=== PATIENT | male | born 1945 | race Caucasian/White ===

== ENCOUNTER 2017-04-29 16:19 | Emergency (ER) | payer SELFPAY ==
[2017-04-29 16:35] VITALS: BP 118/69
== END 2017-04-29 19:30 | disposition left against medical advice (07) ==
LOC: ER 16:19
DX: F10.120 Alcohol abuse with intoxication, uncomplicated (principal); Z53.21 Procedure and treatment not carried out due to patient leaving prior to being seen by health care provider

== ENCOUNTER 2020-03-12 09:08 | Inpatient (IN) | payer MEDICARE, MEDICAID ==
[~2020-03-12] VITALS: Ht 180.3 cm; Wt 110.5 kg
[2020-03-12 10:08] LABS: Basophils # (auto) 0 10 ^3/uL (0-0.2); Basophils % (auto) 0.9 % (0.0-2.0); Eosinophils # (auto) 0 10 ^3/uL (0-0.8); Eosinophils % (auto) 0.2 % (0.0-7.0); Hematocrit 48.1 % (41.0-53.0); Hemoglobin 15.8 g/dL (13.5-17.5); Lymphocytes # (auto) 1.7 10 ^3/uL (0.4-5.4); Mean Corpuscular Hemoglobin 29.2 pg (28.0-32.0); Mean Corpuscular Hgb Conc. 32.9 g/dL (32.0-36.0); Mean Corpuscular Volume 88.8 fL (80.0-100.0); Monocytes # (auto) 0.5 10 ^3/uL (0-1.3); Monocytes % (auto) 10.4 % (0.0-12.0); Neutrophils # (auto) 2.3 10 ^3/uL (1.6-8.6); Neutrophils % (auto) 50.5 % (37.0-80.0); Nucleated Red Blood Cells % 0.5 %; Platelet Count (auto) 142 10^3/uL (140-450); Red Blood Cells 5.42 10^6/uL (4.5-5.90); Red Cell Distribution Width 16.5 % (11.8-14.3); White Blood Cell 4.6 10^3/uL (4.4-10.8)
[2020-03-12 10:20] LABS: Albumin 3.5 g/dL (3.4-5.0); Calcium 8.9 mg/dL (8.5-10.1)
[2020-03-12 10:25] LABS: BUN/Creatinine Ratio 10.7; Bilirubin, Total 1.4 mg/dL (0.2-1.0); Total Protein 9.1 g/dL (6.4-8.2)
[2020-03-12 10:27] LABS: Potassium 2.5 mmol/L (3.5-5.1)
[2020-03-12] MEDS ORDERED: ENOXAPARIN SOD 100 MG/1 ML SYRINGE SC ONE (10:45)
[2020-03-12] MEDS: POTASSIUM CHL 20MEQ/100ML 100 ML IV SCH ×3 (10:45→14:45)
[2020-03-12] MEDS ORDERED: ASPirin 81 mg TAB PO ONE (10:45)
[2020-03-12] MEDS: SODIUM CHLORIDE 0.9% 1,000 ML IV SCH (12:05)
[2020-03-12] MEDS ORDERED: MORPHINE SULFATE 4 MG/ML SYR/VIAL IV PRN (12:15)
[2020-03-12] MEDS: DOXYCYCLINE 100MG/250ML 250 ML IV SCH (12:15)
[2020-03-12] MEDS ORDERED: FUROSEMIDE 20 MG/2 ML VIAL IV ONE (12:15)
[2020-03-12] MEDS ORDERED: ALUM & MAG HYDROX-SIMETH LIQ(MAALOX) 30 ML PO ONE (12:15)
[2020-03-12] MEDS ORDERED: MORPHINE SULF INJ 2 MG/ML SYRINGE 1ML IV PRN (12:15)
[2020-03-12] MEDS ORDERED: LORazepam 0.5 MG TAB PO PRN (12:15)
[2020-03-12] MEDS ORDERED: DOXYCYCLINE 100MG/250ML 250 ML IV ONE (12:15)
[2020-03-12] MEDS ORDERED: NITROGLYCERIN 0.4 MG SL TAB SL PRN ×2 (12:15)
[2020-03-12] MEDS ORDERED: ATORVASTATIN 20 MG TAB PO ONE (12:15)
[2020-03-12 12:21] LABS: Urine Bacteria None Seen /hpf (None Seen)
[2020-03-12 12:34] LABS: Cholesterol 196 mg/dL (< 200); Triglycerides 165 mg/dL (< 150)
[2020-03-12 12:37] LABS: HDL Cholesterol 83 mg/dL (40-59); LDL Cholesterol 110 mg/dL (< 100)
[2020-03-12 12:45] LABS: Urine Mucus FEW (None Seen); Urine WBC 2 /hpf (0 - 3)
[2020-03-12] MEDS ORDERED: POTASSIUM EFFERVESENT TAB 25 MEQ PO ONE (12:45)
[2020-03-12] MEDS ORDERED: IOHEXOL 350 MG/ML 100ML IJ ONE (12:57)
[2020-03-12] MEDS ORDERED: LORazepam 2MG/ML-1ML VIAL IV PRN (13:00)
--- NOTE | 2020-03-12 13:30 | NUR ---
DIANA SANFORD DELIVERED PATIENTS IV TUBING AND IV POTASSIUM BEDSIDE.
[2020-03-12 13:48] VITALS: BP 141/97
--- NOTE | 2020-03-12 14:00 | NUR ---
RECEIVED PATIENT FROM SKATING RINK MANAGER VIA [facility]. PATIENT ALERT AND ORIENTED X 4 AND [place]ASH[place]. PATIENT AMBULATED TO THE RESTROOM AND URINATED 500 CC OF CLEAR YELLOW URINE. PATIENT REPORTED CHRONIC BACK PAIN 7/10 TYLENOL TO BE GIVEN ORDERED. BREATHING LABORED PATIENT REFUSED OXYGEN, SATURATION 95% ON ROOM AIR. PATIENT REFUSED POTASSIUM BECAUSE IT LOBO, EDUCATED ON RISK OF ELECTROLYTE IMBALANCES, PATIENT VERBALIZED UNDERSTANDING. PATIENT REFUSED TO WEAR TELE BOX, EDUCATED ON THE NEED FOR CONTINUOUS HEART MONITORING HOWEVER PATIENT REFUSED TO WEAR TELE BOX OR A HOSPITAL GOWN. CALL LIGHT WITHIN REACH, BED IN LOWEST POSITION WITH WHEELS LOCKED, BED ALARM ON. WILL CONTINUE TO MONITOR.
[2020-03-12] MEDS ORDERED: ACET-1304 PO (14:10)
[2020-03-12] MEDS: ONDANSETRON HCL 4 MG/2 ML VIAL IV PRN (16:20)
[2020-03-12 17:00] VITALS: BP 141/100
--- NOTE | 2020-03-12 17:02 | NUR ---
SPOKE WITH DTR ROGE GUAN STATED PATIENT PREVIOUSLY LIVED AT [facility] UNTIL FATHERS DAY HE LEFT [place]. PER DTR PATIENT IS HOMELESS BECAUSE HE REFUSES TO RETURN TO [facility]. 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 PER PROTOCOL PATIENT WILL BE TESTED FOR COVID-19.
[2020-03-12] MEDS: FUROSEMIDE 20 MG/2 ML VIAL IV SCH (18:17)
--- NOTE | 2020-03-12 18:30 | NUR ---
SAMPLE COLLECTED AND CARRIED TO LAB, PER PROTOCOL TO TEST FOR COVID-19.
--- NOTE | 2020-03-12 18:52 | NUR ---
WEBMASTER EDNA NOTIFIED PATIENT IS AWAITING RESULTS OF COVID-19
--- NOTE | 2020-03-12 19:40 | NUR ---
Opening Shift Note Assumed care of patient, awake and alert, oriented x 4, follows direction. On room air with even and unlabored respirations. No S/S of distress/SOB or pain. patient ambulates with standby assist. patient turns independently in bed. bed in lowest locked position with side rails up x 2 and call light within reach, bed alarm on. Instructed on POC and to call for assist PRN, will continue to monitor for changes Q1hr and PRN.
[2020-03-12] MEDS: ACETAMINOPHEN 325 MG TAB PO PRN (20:10)
[2020-03-12] MEDS: ATORVASTATIN 20 MG TAB PO SCH (22:07)
[2020-03-12] MEDS: ENOXAPARIN SOD 100 MG/1 ML SYRINGE SC SCH (22:08)
[2020-03-12] MEDS: CARVEDILOL 3.125 MG TAB PO SCH (22:10)
[2020-03-12 23:00] VITALS: BP 128/90
[2020-03-13] MEDS: DOXYCYCLINE 100MG/250ML 250 ML IV SCH ×2 (00:58→12:03)
[2020-03-13 05:18] VITALS: BP 141/78
[2020-03-13 06:00] LABS: Basophils # (auto) 0 10 ^3/uL (0-0.2); Basophils % (auto) 0.5 % (0.0-2.0); Eosinophils # (auto) 0 10 ^3/uL (0-0.8); Eosinophils % (auto) 0.5 % (0.0-7.0); Hematocrit 45.1 % (41.0-53.0); Hemoglobin 15.1 g/dL (13.5-17.5); Lymphocytes # (auto) 1.1 10 ^3/uL (0.4-5.4); Lymphocytes % (auto) 19.1 % (10.0-50.0); Mean Corpuscular Hemoglobin 29.5 pg (28.0-32.0); Mean Corpuscular Hgb Conc. 33.5 g/dL (32.0-36.0); Mean Corpuscular Volume 88.1 fL (80.0-100.0); Monocytes # (auto) 0.7 10 ^3/uL (0-1.3); Monocytes % (auto) 12.1 % (0.0-12.0); Neutrophils # (auto) 3.8 10 ^3/uL (1.6-8.6); Neutrophils % (auto) 67.8 % (37.0-80.0); Nucleated Red Blood Cells % 0.3 %; Platelet Count (auto) 117 10^3/uL (140-450); Red Blood Cells 5.12 10^6/uL (4.5-5.90); Red Cell Distribution Width 16.8 % (11.8-14.3); White Blood Cell 5.5 10^3/uL (4.4-10.8)
[2020-03-13 06:16] LABS: INR 1.06 (0.9-1.15); Partial Thromboplastin Time 28.8 sec (23.64-32.05)
[2020-03-13] MEDS: FUROSEMIDE 20 MG/2 ML VIAL IV SCH ×2 (06:25→17:02)
[2020-03-13 06:27] LABS: Albumin 3.3 g/dL (3.4-5.0); BUN/Creatinine Ratio 16.3; Bilirubin, Total 1.4 mg/dL (0.2-1.0); Calcium 9.7 mg/dL (8.5-10.1); Magnesium 2.4 mg/dL (1.6-2.6); Phosphorus 1.9 mg/dL (2.5-4.90); Total Protein 8.3 g/dL (6.4-8.2)
[2020-03-13 06:33] LABS: Potassium 2.6 mmol/L (3.5-5.1)
[2020-03-13] MEDS ORDERED: POTASSIUM CHL 20 Meq TABLET PO ONE ×3 (07:00→11:00)
--- NOTE | 2020-03-13 07:00 | NUR ---
Opening Shift Note Assumed care of patient, awake and alert. No S/S of distress/SOB or pain. Insructed on POC and to callfor assist PRN, will continue to monitor for changes Q1hr and PRN.
--- NOTE | 2020-03-13 07:15 | NUR ---
Closing Note patient resting in bed with even and labored respirations, no s/s of distress. Bed in lowest locked position with side rails up x 2 and call light within reach, bed alarm on. Endorsed care to day shift RN.
--- NOTE | 2020-03-13 08:10 | NUR ---
CALLED MD KEY TO CLARIFY KCL ORDER, PER HE NEEDS 120MEQ KCL (60MEQ 0700 AND NEW ORDER 60MEQ KCL)
--- NOTE | 2020-03-13 08:27 | NUR ---
CALLED PHARMACY TO CLARIFY WHY THEY CANCELLED THE K ORDER, PER MD KEY PT NEEDS 120MEQ K FOR REPLACEMENT (PT REFUSING IV K) PT AGREED TO TAKE POTASSIUM WAS REFUSING WITH RAJAN RN AT 0700. PER PHARMACY ITS A DUPLICATE ORDER EXPLAINED TO PHARMACY HE NEEDS 120MEQ TOTAL, PER PHARMACY THEY WILL FIX ORDER AND SPREAD OUT THE DOSES
[2020-03-13] MEDS ORDERED: DIGOXIN (250MCG/ML) 2 ML AMPULE IV ONE (08:45)
[2020-03-13] MEDS: LISINOPRIL 5 MG TAB PO SCH (08:57)
[2020-03-13] MEDS: CLOPIDOGREL BISULFATE 75 MG TAB PO SCH (08:58)
[2020-03-13] MEDS: CARVEDILOL 3.125 MG TAB PO SCH ×2 (08:58→21:41)
[2020-03-13] MEDS: ENOXAPARIN SOD 100 MG/1 ML SYRINGE SC SCH (08:59)
[2020-03-13] MEDS: ONDANSETRON HCL 4 MG/2 ML VIAL IV PRN (08:59)
[2020-03-13] MEDS: DOCUSATE SOD 100 MG CAP PO SCH (08:59)
[2020-03-13 09:00] VITALS: BP 148/100
[2020-03-13] MEDS ORDERED: ASPirin 81 mg TAB PO SCH (10:00)
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
[2020-03-13] MEDS: SODIUM CHLORIDE 0.9% 1,000 ML IV SCH (12:02)
--- NOTE | 2020-03-13 12:08 | NUR ---
MD ALVAREZ ROUNDED ON PATIENT UPDATED ON PLAN OF CARE
[2020-03-13] MEDS ORDERED: FOLIC ACID 1 MG in D5W 5% 50 ML IV ONE (12:15)
[2020-03-13] MEDS ORDERED: THIAMINE 100mg/ml INJ (200mg/2ml VIAL) IV ONE (12:15)
[2020-03-13] MEDS: MAGNESIUM SULFATE 1GM/100ML 100 ML IV SCH (12:43)
--- NOTE | 2020-03-13 12:43 | NUR ---
PAGED MD MAYBERRY MADE HIM AWARE OF PT MAG LEVEL PER PHARMACY CALLING, PER MD HIS MAG LEVEL WILL BE RETAKEN LATER TONIGHT AND TO HOLD THE MAGNESSIUM X2 BAGS
[2020-03-13 12:46] VITALS: BP 147/90
--- NOTE | 2020-03-13 14:28 | NUR ---
pt asleep verbally arousable no respiratory distress noted
[2020-03-13 16:56] VITALS: BP 102/51
[2020-03-13 17:31] LABS: BUN/Creatinine Ratio 18.5; Calcium 10.1 mg/dL (8.5-10.1); Magnesium 2.2 mg/dL (1.6-2.6); Potassium 3.2 mmol/L (3.5-5.1)
--- NOTE | 2020-03-13 19:30 | NUR ---
Opening Shift Note Assumed care of patient, awake and alert. No S/S of distress/SOB or pain. Instructed on POC and to call for assist PRN, will continue to monitor for changes Q1hr and PRN.
[2020-03-13] MEDS: POTASSIUM CHL 20 Meq TABLET PO SCH (21:41)
[2020-03-13] MEDS: ATORVASTATIN 20 MG TAB PO SCH (21:41)
[2020-03-13] MEDS: APIXABAN 2.5 MG TAB PO SCH (21:41)
[2020-03-13 22:00] VITALS: BP 110/74
[2020-03-14 05:00] VITALS: BP 115/64
[2020-03-14] MEDS: FUROSEMIDE 20 MG/2 ML VIAL IV SCH (05:50)
[2020-03-14 06:44] LABS: Basophils # (auto) 0 10 ^3/uL (0-0.2); Basophils % (auto) 0.8 % (0.0-2.0); Eosinophils # (auto) 0.1 10 ^3/uL (0-0.8); Hematocrit 46.4 % (41.0-53.0); Hemoglobin 15.5 g/dL (13.5-17.5); Lymphocytes # (auto) 1.4 10 ^3/uL (0.4-5.4); Lymphocytes % (auto) 29.4 % (10.0-50.0); Mean Corpuscular Hgb Conc. 33.3 g/dL (32.0-36.0); Monocytes # (auto) 0.5 10 ^3/uL (0-1.3); Monocytes % (auto) 11.5 % (0.0-12.0); Neutrophils # (auto) 2.6 10 ^3/uL (1.6-8.6); Neutrophils % (auto) 56.3 % (37.0-80.0); Nucleated Red Blood Cells % 0.5 %; Platelet Count (auto) 117 10^3/uL (140-450); Red Blood Cells 5.15 10^6/uL (4.5-5.90); Red Cell Distribution Width 16.6 % (11.8-14.3); White Blood Cell 4.6 10^3/uL (4.4-10.8)
[2020-03-14 06:54] LABS: Potassium 3.2 mmol/L (3.5-5.1)
[2020-03-14 07:17] LABS: BUN/Creatinine Ratio 22.1; Bilirubin, Total 0.8 mg/dL (0.2-1.0); Calcium 10.6 mg/dL (8.5-10.1); Magnesium 2.3 mg/dL (1.6-2.6); Total Protein 8.1 g/dL (6.4-8.2)
--- NOTE | 2020-03-14 07:35 | NUR ---
Opening Note Received report from mold shifter RN. Patient is awake, alert and oriented x4. No signs or symptoms of distress noted at this time. Patient is on room air, respirations even and unlabored. Patient complains of pain to lower back 6/10 and is requesting Tylenol. Will medicate per orders. Reviewed plan of care with patient, patient verbalized understanding. Bed in low and locked position, call light within reach. Will continue to monitor Q1 hour and PRN.
[2020-03-14] MEDS ORDERED: POTASSIUM CHL 20 Meq TABLET PO ONE (08:00)
[2020-03-14 08:41] VITALS: BP 118/70
[2020-03-14] MEDS: APIXABAN 2.5 MG TAB PO SCH ×2 (09:24→22:05)
[2020-03-14] MEDS: CARVEDILOL 3.125 MG TAB PO SCH ×2 (09:25→22:05)
[2020-03-14] MEDS: POTASSIUM CHL 20 Meq TABLET PO SCH (09:25)
[2020-03-14] MEDS: DOCUSATE SOD 100 MG CAP PO SCH (09:25)
[2020-03-14] MEDS: LISINOPRIL 5 MG TAB PO SCH (09:26)
[2020-03-14] MEDS: THIAMINE 100mg/ml INJ (200mg/2ml VIAL) IV SCH (09:26)
[2020-03-14] MEDS: CLOPIDOGREL BISULFATE 75 MG TAB PO SCH (09:26)
[2020-03-14] MEDS: ACETAMINOPHEN 325 MG TAB PO PRN (09:35)
[2020-03-14] MEDS: FOLIC ACID 1 MG in D5W 5% 50 ML IV SCH (10:20)
--- NOTE | 2020-03-14 12:20 | NUR ---
Dr. Rajan at bedside Discussing plan of care with patient and this RN. No new orders received. Will continue to monitor Q1 hour and PRN.
[2020-03-14 12:30] VITALS: BP 119/58
[2020-03-14 16:33] VITALS: BP 104/68
--- NOTE | 2020-03-14 19:01 | NUR ---
Closing Note Report given to night shift supervisor RN. No signs or symptoms of distress noted at this time.
--- NOTE | 2020-03-14 20:59 | NUR ---
1899. REPORT OBTAINED ON PATIENT. 1939. PATIENT SEEN LYING ON HIS BED SEMI-CHANCE POSITION. AWAKE AND ALERT. DENIED ANY DISCOMFORT BREATHING WAS EVEN AND UNLABORED. IV SITE WAS CLEAR AND DRY. IV LINE WAS PATENT. AND SALINE LOCKED.
[2020-03-14 22:00] VITALS: BP 104/51
[2020-03-14] MEDS: ATORVASTATIN 20 MG TAB PO SCH (22:05)
[2020-03-15 05:00] VITALS: BP 110/60
[2020-03-15 06:30] LABS: Calcium 10.9 mg/dL (8.5-10.1); Potassium 3.7 mmol/L (3.5-5.1)
[2020-03-15 06:32] LABS: BUN/Creatinine Ratio 23.5
--- NOTE | 2020-03-15 07:30 | NUR ---
Opening Note Received report from [facility] shift lead RN. Patient is awake, alert and oriented x4. No signs or symptoms of distress noted at this time. Patient is on room air, respirations even and unlabored. Reviewed plan of care with patient, patient verbalized understanding. Bed in low and locked position, call light within reach. Will continue to monitor Q1 hour and PRN.
[2020-03-15] MEDS: ACETAMINOPHEN 325 MG TAB PO PRN (08:33)
--- NOTE | 2020-03-15 08:38 | NUR ---
Pain Patient complains of lower back pain / and is requesting Tylenol. Will medicate per orders. Will continue to monitor Q1 hour and PRN.
--- NOTE | 2020-03-15 09:08 | NUR ---
Pain reassessment Patient denies pain at this time. No signs or symptoms of distress noted at this time. Will continue to monitor Q1 hour and PRN.
[2020-03-15] MEDS: APIXABAN 2.5 MG TAB PO SCH ×2 (09:59→21:59)
[2020-03-15] MEDS: THIAMINE 100mg/ml INJ (200mg/2ml VIAL) IV SCH (09:59)
[2020-03-15] MEDS: DOCUSATE SOD 100 MG CAP PO SCH (09:59)
[2020-03-15] MEDS: CLOPIDOGREL BISULFATE 75 MG TAB PO SCH (10:00)
--- NOTE | 2020-03-15 10:04 | NUR ---
IV Removed IV removed with clean sterile technique from left AC, catheter fully intact. Pressure dressing applied to site. Patient tolerated well. Will continue to monitor Q1 hour and PRN.
--- NOTE | 2020-03-15 10:05 | NUR ---
IV Insertion IV access obtained, via clean sterile technique by inserting 22 gauge catheter to left hand after one attempt. IV secured properly. No trauma to site. Patient tolerated well. Will continue to monitor Q1 hour and PRN.
[2020-03-15] MEDS: CARVEDILOL 3.125 MG TAB PO SCH ×2 (10:29→21:59)
[2020-03-15] MEDS: LISINOPRIL 5 MG TAB PO SCH (10:29)
[2020-03-15] MEDS: FOLIC ACID 1 MG in D5W 5% 50 ML IV SCH (10:39)
--- NOTE | 2020-03-15 12:30 | NUR ---
Dr. Rajan at bedside Discussing plan of care with patient and this RN. Patient to transfer to SNF. Will continue to monitor Q1 hour and PRN.
--- NOTE | 2020-03-15 15:57 | NUR ---
D/C planning Regarding social service consult for SNF placement. Patient does not want to be placed at [facility] and requested [facility]. Faxed clinical information to [facility]. Per Landy with [facility] they do not have beds available at this time. Faxed clinical information to [facility]. Pending acceptance. Informed JUVENAL Davis.
--- NOTE | 2020-03-15 16:36 | NUR ---
D/C [facility] accepted patient and they will need authorization from [facility]. JUVENAL Davis was informed patient will need a physical therapy evaluation before obtaining authorization from secondary insurance.
[2020-03-15 17:00] VITALS: BP 106/61
--- NOTE | 2020-03-15 18:54 | NUR ---
Closing Note Report given to claim taker RN. No signs or symptoms of distress noted at this time.
--- NOTE | 2020-03-15 19:51 | NUR ---
1900. REPORT RECEIVED ON PATIENT. PATIENT IS SEEN AWAKE AND ALERT. DENIED PAIN AND DISCOMFORT. BREATHING IS EVEN AND UNLABORED. NOTED POSSIBLE DC TO SNF TOMORROW.
[2020-03-15] MEDS: ATORVASTATIN 20 MG TAB PO SCH (21:59)
[2020-03-15 22:00] VITALS: BP 99/63
[2020-03-16 05:00] VITALS: BP 120/64
--- NOTE | 2020-03-16 07:20 | NUR ---
Opening Note Received report from night shift manager RN. Patient is awake, alert and oriented x4. No signs or symptoms of distress noted at this time. Patient is on room air, respirations even and unlabored. Patient complains of back pain 6/10 and is requesting Tylenol. Will medicate per orders. Reviewed plan of care with patient, patient verbalized understanding. Bed in low and locked position, call light within reach. Will continue to monitor Q1 hour and PRN.
--- NOTE | 2020-03-16 08:55 | NUR ---
physical therapy at bedside
[2020-03-16 08:57] VITALS: BP 101/58
[2020-03-16] MEDS: APIXABAN 2.5 MG TAB PO SCH (09:06)
[2020-03-16] MEDS: CARVEDILOL 3.125 MG TAB PO SCH (09:06)
[2020-03-16] MEDS: CLOPIDOGREL BISULFATE 75 MG TAB PO SCH (09:06)
[2020-03-16] MEDS: LISINOPRIL 5 MG TAB PO SCH (09:06)
[2020-03-16] MEDS: DOCUSATE SOD 100 MG CAP PO SCH (09:06)
[2020-03-16] MEDS: ACETAMINOPHEN 325 MG TAB PO PRN (09:07)
[2020-03-16] MEDS: THIAMINE 100mg/ml INJ (200mg/2ml VIAL) IV SCH (09:08)
[2020-03-16] MEDS: FOLIC ACID 1 MG in D5W 5% 50 ML IV SCH (10:00)
--- NOTE | 2020-03-16 11:10 | NUR ---
Report called to [facility] Report given to Bisi at [facility]. All questions and concerns addressed. Patient to be picked up at 1300.
--- NOTE | 2020-03-16 11:12 | NUR ---
D/C planning Per Jesus with [facility] [phone] patient has been accepted to room 214 bed C accepting , Dr. Palomo. Transportation has been arranged with [facility] at 13:00 via [facility]. Informed RN Susan.
[2020-03-16 13:00] VITALS: BP 96/69
--- NOTE | 2020-03-16 13:47 | NUR ---
DISCHARGE Discharge instructions given as ordered. Encourage to follow up with PMD as instructed. All questions and concerns addressed. Patient verbalized understanding. Medication reconciliation form completed and copy given to patient. IV removed, catheter intact Patient transported to [facility] by [employer] transportation, via gurney with all personal belongings. No signs or symptoms of distress noted at this time.
== END 2020-03-16 13:45 | DRG 309 ==
LOC: EDBD 09:08 → ER 09:08 → TELE 09:09 → TELE-WESTW 13:22
PROVIDERS: ADMIT Hospitalist; ATTEND Internal Medicine
DX: I48.91 Unspecified atrial fibrillation (principal); D68.69 Other thrombophilia; E87.6 Hypokalemia; K29.20 Alcoholic gastritis without bleeding; K70.10 Alcoholic hepatitis without ascites; E66.9 Obesity, unspecified; E11.65 Type 2 diabetes mellitus with hyperglycemia; E78.5 Hyperlipidemia, unspecified; F03.90 Unspecified dementia, unspecified severity, without behavioral disturbance, psychotic disturbance, mood disturbance, and anxiety; Z20.828 Contact with and (suspected) exposure to other viral communicable diseases; F10.129 Alcohol abuse with intoxication, unspecified; Z79.84 Long term (current) use of oral hypoglycemic drugs; R55 Syncope and collapse; I10 Essential (primary) hypertension; Z68.33 Body mass index [BMI] 33.0-33.9, adult; Y90.9 Presence of alcohol in blood, level not specified
CPT/HCPCS: 36415; 70450; 71045; 71275; 80048; 80053; 80061; 81015; 83036; 83735; 83880; 84100; 84443; 84484; 85025; 85610; 85730; 87040; 87086; 93005; 93306; 93970; 96361; 96372; 96374; 97163; 99291; G0378; J2405; J3480; J3490; J7060

== ENCOUNTER 2025-06-18 09:48 | Inpatient (IN) | payer OTHER, MEDICARE ==
[~2025-06-18] VITALS: Ht 172.7 cm; Wt 118.3 kg
[~2025-06-18 09:48] MED LIST: ACET-1304 PO
--- NOTE | 2025-06-18 10:10 | ED.PDOC ---
HPI Comments 80 y.o male with PMHx of AFIB and HTN, presents to the ED via EMS for a chief complaint of chest pain radiating to his left arm that started this morning. Son who is SAMI, states patient was recently diagnosed with PNA, has had a productive cough for the past couple of days and woke up today with substernal sharp pain. Patient denies any nausea, vomiting, diarrhea, fever, or chills. Chief Complaint: Chest Pain Time Seen by MD: 09:55 Primary Care Provider: [place] Reviewed Notes: Nurses Notes, Item Repair Manager Notes, Medications, Allergies Allergies: Coded Allergies: NO KNOWN ALLERGIES (Unverified , 03/12/20) Home Meds Reported Medications Acetaminophen (Tylenol Extra Strength) 500 Mg Tab, 500 MG PO Q6HP PRN for PAIN, TAB 03/12/20 Information Source: Patient, POA-Power of Contact Center Specialist (son), Relative, Emergency Med Personnel Mode of Arrival: EMS Severity: Moderate Timing: Hours Duration: Since onset Location: Substernal Radiation: Arm (L) Quality: Sharp Onset: At Rest Cardiac Risk Factors: HTN PE Risk Factors: None History of: None Modifying Factors: Nothing Past Medical History PAST MEDICAL HISTORY: AFIB, Dementia, HTN Surgical History: Denies all surgeries Social History Smoker: Non-Smoker Alcohol: Denies ETOH Use Drugs: Denies Drug Use Lives In: Home Constitutional: denies: chills, diaphoresis, fatigue, fever, malaise, sweats, weakness, others EENTM: denies: blurred vision, double vision, ear bleeding, ear discharge, ear drainage, ear pain, ear ringing, eye pain, eye redness, hearing loss, mouth pain, mouth swelling, nasal discharge, nose bleeding, nose congestion, nose pain, photophobia, tearing, throat pain, throat swelling, voice changes, others Respiratory: denies: cough, hemoptysis, orthopnea, SOB at rest, shortness of breath, SOB with excertion, stridor, wheezing, others Cardiovascular: reports: chest pain, left arm pain; denies: dizzy spells, diaphoresis, Dyspnea on exertion, edema, irregular heart beat, lightheadedness, palpitations, PND, syncope, others Gastrointestinal: denies: abdomen distended, abdominal pain, blood streaked bowels, constipated, diarrhea, dysphagia, difficulty swallowing, hematemesis, melena, nausea, poor appetite, poor fluid intake, rectal bleeding, rectal pain, vomiting, others Genitourinary: denies: burning, dysuria, flank pain, frequency, hematuria, incontinence, penile discharge, penile sore, pain, testicle pain, testicle swelling, urgency, others Neurological: denies: dizziness, fainting, headache, left sided numbness, left sided weakness, numbness, paresthesia, pre-existing deficit, right sided numbness, right sided weakness, seizure, speech problems, tingling, tremors, weakness, others Musculoskeletal: denies: back pain, gout, joint pain, joint swelling, muscle pain, muscle stiffness, neck pain, others Integumetry: denies: bruises, change in color, change in hair/nails, dryness, laceration, lesions, lumps, rash, wounds, others Allergic/Immunocompromised: denies: Difficulty Healing, Frequent Infections, Hives, Itching, others Hematologic/Lymphatic: denies: anemia, blood clots, easy bleeding, easy bruising, swollen glands, others Endocrine: denies: excessive hunger, excessive sweating, excessive thirst, excessive urination, flushing, intolerance to cold, intolerance to heat, unexplained weight gain, unexplained weight loss, others Psychiatric: denies: anxiety, bipolar disorder, depression, hopeless, panic disorder, schizophrenia, sleepless, suicidal, others All Other Systems: Reviewed and Negative Physical Exam General Appearance: Moderate Distress HEENT: Normal ENT Inspection, Pharynx Normal, TMs Normal Neck: Full Range of Motion, Non-Tender, Normal, Normal Inspection Respiratory: Chest Non-Tender, Lungs Clear, No Accessory Muscle Use, No Respiratory Distress, Normal Breath Sounds Cardiovascular: Irregular, No Edema, No JVD, No Murmur, No Gallop, Normal Peripheral Pulses Breast Exam: Deferred Gastrointestinal: No Organomegaly, Non Tender, No Pulsatile Mass, Normal Bowel Sounds, Soft Genitalia: Deferred Pelvic: Deferred Rectal: Deferred Extremities: No calf tenderness, Normal capillary refill, Normal inspection, Normal range of motion, Non-tender, No pedal edema Musculoskeletal : Apperance: Normal Neurologic: Alert, halftone operator II-XII nml as Tested, No Motor Deficits, Normal Affect, Normal Mood, No Sensory Deficits Cerebellar Function: NOT DONE Reflexes: NOT DONE Skin: Dry, Normal Color, Warm Peripheral Pulses: 3+ Radial (R), 3+ Radial (L) Lymphatic: No Adenopathy EKG EKG : Pulse Rate (adult): 59 Cardiac Rhythm: Aflutter Was a procedure done? Was a procedure done?: No CP Differential Dx Differential Diagnosis: A-fib, A-Flutter, Angina, Anxiety / Panic Attack, Atrial Dysrhythmia, Electrolyte Disorder Differential Diagnosis: Angina, Chest Wall Pain, Cholelithiasis, Costochondritis, Myocardial Infarction, Pericarditis, Pneumonia X-Ray, Labs, Meds, VS Vital Signs Date Time Temp Pulse Resp B/P (MAP) Pulse Ox O2 Delivery O2 Flow Rate FiO2 06/18/25 14:00 98.1 61 18 133/64 (87) 94 98.1 06/18/25 12:51 51 06/18/25 12:00 98.1 61 11 140/83 (102) 94 98.1 06/18/25 12:00 52 06/18/25 11:00 98.2 53 11 127/81 (96) 94 98.2 06/18/25 10:52 63 06/18/25 10:30 48 16 95 Room Air* 0 21 06/18/25 10:30 98.2 48 16 127/81 (96) 95 98.2 06/18/25 10:23 63 06/18/25 10:10 59 06/18/25 09:55 98.2 64 20 165/91 96 98.2 06/18/25 09:49 59 Lab Test 06/18/25 12:56 06/18/25 11:22 06/18/25 10:41 Range/Units Troponin I High Sensitivity 17 19 </=54 ng/L Urine Color Light-yellow Yellow Urine Clarity Clear Clear Urine pH 5.0 5.0-9.0 Urine Specific Tyler 1.028 1.001-1.035 Urine Protein Negative Negative Urine Ketones Negative Negative Urine Blood Trace H Negative /uL Urine Nitrite Negative Negative Urine Bilirubin Negative Negative Urine Urobilinogen Normal Negative mg/dL Urine Leukocyte Esterase Negative Negative /uL Urine RBC 1 0 - 3 /hpf Urine Microscopic WBC 1 0-3 /HPF Urine Squamous Epithelial Cells None seen <5 /hpf Urine Bacteria None seen None Seen /hpf Urine Glucose 4+ H Normal mg/dL White Blood Count 8.1 4.4-10.8 10^3/uL Red Blood Count 5.61 4.5-5.90 10^6/uL Hemoglobin 18.3 H 13.5-17.5 g/dL Hematocrit 53.5 H 41.0-53.0 % Mean Corpuscular Volume 95.5 80.0-100.0 fL Mean Corpuscular Hemoglobin 32.7 H 28.0-32.0 pg Mean Corpuscular Hemoglobin Concent 34.2 32.0-36.0 g/dL Red Cell Distribution Width 13.8 11.8-14.3 % Platelet Count 158 140-450 10^3/uL Mean Platelet Volume 8.5 6.9-10.8 fL Neutrophils (%) (Auto) 47.4 37.0-80.0 % Lymphocytes (%) (Auto) 40.2 10.0-50.0 % Monocytes (%) (Auto) 9.3 0.0-12.0 % Eosinophils (%) (Auto) 2.3 0.0-7.0 % Basophils (%) (Auto) 0.8 0.0-2.0 % Neutrophils # (Auto) 3.9 1.6-8.6 10 ^3/uL Lymphocytes # (Auto) 3.3 0.4-5.4 10 ^3/uL Monocytes # (Auto) 0.8 0-1.3 10 ^3/uL Eosinophils # (Auto) 0.2 0-0.8 10 ^3/uL Basophils # (Auto) 0.1 0-0.2 10 ^3/uL Nucleated Red Blood Cells 0.1 % Sodium Level 139 136-145 mmol/L Potassium Level 3.7 3.5-5.1 mmol/L Chloride Level 105 98-107 mmol/L Carbon Dioxide Level 23 20-31 mmol/L Anion Gap 11 5-15 Blood Urea Nitrogen 11 9-23 mg/dL Creatinine 1.08 0.700-1.30 mg/dL Glomerular Filtration Rate Calc 70 >90 mL/min BUN/Creatinine Ratio 10.2 10.0-20.0 Serum Glucose 131 H 74-106 mg/dL Hemoglobin A1c 8.0 H <5.7 % A1C Calcium Level 9.5 8.7-10.4 mg/dL Total Bilirubin 0.6 0.2-1.0 mg/dL Aspartate Amino Transferase (AST) 30 13-40 U/L Alanine Aminotransferase (ALT) 31 7-40 U/L Alkaline Phosphatase 74 46-116 U/L B-Type Natriuretic Peptide Pending Total Protein 8.3 H 5.7-8.2 g/dL Albumin 4.4 3.2-4.8 g/dL Current Medications Medications (Trade) Dose Ordered Sig/Lizabeth Route Start Time Stop Time Status Last Admin Aspirin 325 mg ONCE ONCE PO 06/18/25 10:15 06/18/25 10:16 DC 06/18/25 10:44 Sodium Chloride 1,000 ml @ 1,000 mls/hr Q1H ONCE IV 06/18/25 14:00 06/18/25 14:59 DC 06/18/25 14:33 Patient alert. Complaining of chest pain. Vitals stable. Answering questions. Cardiac marker within normal limits. EKG reviewed does show atrial fibrillation. Started amiodarone. Was given aspirin. WBC within normal limits. Hemoglobin elevated. Possible dehydration. Establish intravenous access. Was given fluids. Continue monitoring. Time of 1ST Reevaluation: 10:09 Reevaluation 1ST: Unchanged Patient Education/Counseling: Diagnosis, Treatment Family Education/Counseling: Diagnosis, Treatment, Prognosis SEPSIS Sepsis Screen Date sepsis recognized/suspect: Jun 18, 2025 Time Sepsis recognized/suspect: 957 Recent Procedure: No On Antibiotic Therapy: No Respiratory Rate >20: No Heart Rate >90: No Temp<36 C (96.8 F) or >38.3 C: No SBP <90 or MAP <65 mmHG: No New Acute Mental Status Change: No Is the patient on CPAP, BIPAP,: No Physician Orders Chest Portable (06/18/25 10:02) Electrocardigram (06/18/25 10:06) Electrocardigram (06/18/25 11:06) Electrocardigram (06/18/25 13:06) Vital Signs Date Time Temp Pulse Resp B/P (MAP) Pulse Ox O2 Delivery O2 Flow Rate FiO2 06/18/25 14:00 98.1 61 18 133/64 (87) 94 98.1 06/18/25 12:51 51 06/18/25 12:00 98.1 61 11 140/83 (102) 94 98.1 06/18/25 12:00 52 06/18/25 11:00 98.2 53 11 127/81 (96) 94 98.2 06/18/25 10:52 63 10/19/25 10:30 48 16 95 Room Air* 0 21 06/18/25 10:30 98.2 48 16 127/81 (96) 95 98.2 06/18/25 10:23 63 06/18/25 10:10 59 06/18/25 09:55 98.2 64 20 165/91 96 98.2 06/18/25 09:49 59 Laboratory Tests Test 06/18/25 10:41 White Blood Count 8.1 10^3/uL (4.4-10.8) Medications Medications Dose Ordered Sig/Lizabeth Route Start Time Stop Time Status Last Admin Dose Admin Aspirin 325 mg ONCE ONCE PO 06/18/25 10:15 06/18/25 10:16 DC 06/18/25 10:44 Sodium Chloride 1,000 ml @ 1,000 mls/hr Q1H ONCE IV 06/18/25 14:00 06/18/25 14:59 DC 06/18/25 14:33 Departure 1 Departure Time of Disposition: 13:53 Impression: Primary Impression: Atrial fibrillation Qualified Codes: I48.0 - Paroxysmal atrial fibrillation Additional Impression: Chest pain of unknown etiology Disposition: ADMITTED INPATIENT Admit to: Med Surg Condition: Guarded Critical Care Note Critical Care Time?: Yes (90 min-critical care time only) Stability Stability form required: No Heart Score Heart Score: Heart Score Response (Comments) Value History Moderate Suspicious 1 EKG Normal 0 Age >65 2 Risk Factors >3 or Hx ASHD 2 Troponin Normal limit 0 Total 5 I personally scribed for ANIL AVILA MD ([email or web address]) on 06/18/25 at 10:10. Electronically submitted by Celi Arnold ([facility]). ANIL AVILA MD Jun 18, 2025 10:10
[2025-06-18 10:30] VITALS: PULSE 48; RESP 16; O2SAT 95
--- NOTE | 2025-06-18 10:38 | DVH ---
XY CHEST PORTABLE, HISTORY: sob COMPARISON: None None TECHNICAL DATA: 1 view of the chest was obtained. FINDINGS: Lines and tubes: None Cardiomediastinal silhouette: prominent Pulmonary vasculature: prominent Lung expansion: normal Lung airspace: normal Lung interstitium: normal Pleura: normal Pneumothorax: no Bones: Unremarkable Other: no IMPRESSION: Cardiomegaly with pulmonary vascular congestion.
[2025-06-18] MEDS: AMIODARONE BOLUS KIT 100 ML IV ONE (10:45)
[2025-06-18] MEDS: AMIODARONE 360mg/200mL PREMIX 200 ML IV ONE (10:45)
[2025-06-18 10:57] LABS: Nucleated Red Blood Cells % 0.1 %
[2025-06-18 10:58] LABS: Hematocrit 53.5 % (41.0-53.0); Hemoglobin 18.3 g/dL (13.5-17.5); Mean Corpuscular Hemoglobin 32.7 pg (28.0-32.0); Mean Corpuscular Volume 95.5 fL (80.0-100.0)
[2025-06-18 11:14] LABS: Alanine Aminotransferase 31 U/L (7-40); Albumin 4.4 g/dL (3.2-4.8); Alkaline Phosphatase 74 U/L (46-116); Anion Gap 11 (5-15); BUN/Creatinine Ratio 10.2 (10.0-20.0); Bilirubin, Total 0.6 mg/dL (0.2-1.0); Blood Urea Nitrogen 11 mg/dL (9-23); Calcium 9.5 mg/dL (8.7-10.4); Carbon Dioxide 23 mmol/L (20-31); Chloride 105 mmol/L (98-107); Potassium 3.7 mmol/L (3.5-5.1); Sodium 139 mmol/L (136-145)
[2025-06-18 11:16] LABS: Glucose 131 mg/dL (74-106); Total Protein 8.3 g/dL (5.7-8.2)
[2025-06-18 12:21] LABS: Urine Protein, UAD Negative (Negative)
[2025-06-18] MEDS: SODIUM CHLORIDE 0.9% 1,000 ML IV ONE (14:33)
[2025-06-18] MEDS ORDERED: MORPHINE SULFATE INJ 2 MG/ml SYRG IV PRN (15:00)
[2025-06-18] MEDS: PANTOPRAZOLE 40 MG TAB PO ONE (15:00)
[2025-06-18] MEDS ORDERED: NITROGLYCERIN 0.4 MG SL TAB SL PRN (15:00)
[2025-06-18] MEDS: FUROSEMIDE 20 MG/2 ML VIAL IV ONE (15:00)
--- NOTE | 2025-06-18 15:10 | DVHHP2 ---
History of Present Illness History of Present Illness Patient is 71-year-old male who came to the hospital with a chief complaint of chest pain, sharp in nature, acute onset around 5:00 a.m. early in morning, radiating to left arm, lasted for few sec to minutes. As per patient patient also have chest pain associated with shortness of breath. Shortness of breath is significantly worsening with exertion. Chest pain is not associated with food intake. At the time of evaluation patient was denying any chest pain. As per patient he has risk factor of rheumatoid fever given he was diagnosed at age [age]. Denied palpitation. Patient denying any other symptoms including fever, chills, sputum production, motor or sensory deficits. Past medical history: Diabetes mellitus, hypertension, alcohol use, AFib with RVR Surgical history: Cholecystectomy Family history: Noncontributory Social history: Former smoker, smoked for 5-10 year during adolescence. History of alcohol abuse. Allergies: Denies Home medication: Patient does not recall Review of Systems Constitutional: No: Fever, Chills, Sweats, Weakness, Malaise, Other Eyes: No: Pain, Vision change, Conjunctivae inflammation, Eyelid inflammation, Other, Redness ENT: No: Ear pain, Ear discharge, Nose pain, Nose discharge, Nose congestion, Mouth pain, Mouth swelling, Throat pain, Throat swelling, Other Respiratory: Shortness of breath, SOB with excertion; No: Cough, Dry, Wheezing, Hemoptysis, Pleuritic Pain, Sputum, Wheezing, Other Cardiovascular: Chest Pain Gastrointestinal: No: Nausea, Vomiting, Abdominal Pain, Diarrhea, Constipation, Melena, Hematochezia, Other Genitourinary: No Dysuria, No Frequency, No Incontinence, No Hematuria, No Ret ention, No Other Musculoskeletal: No: other, neck pain, shoulder pain, arm pain, back pain, hand pain, leg pain, foot pain Skin: No: Rash, Lesions, Jaundice, Bruising, Other Neurological: No: Weakness, Numbness, Incoordination, Change in speech, Confusion, Seizures, Other Allergies: Coded Allergies: NO KNOWN ALLERGIES (Unverified , 03/12/20) Medications Current Medications Medications Dose Ordered Sig/Lizabeth Route Start Time Stop Time Status Last Admin Dose Admin Nitroglycerin 0.4 mg Q5MINP PRN SL 06/18/25 15:00 UNV Morphine Sulfate 2 mg Q30M PRN IV 10/19/25 15:00 UNV Enoxaparin Sodium 130 mg Q12HR SC 06/18/25 22:00 UNV Furosemide 20 mg DAILY IV 06/19/25 10:00 UNV Pantoprazole Sodium 40 mg DAILY@0600 PO 06/19/25 06:00 UNV Aspirin 81 mg DAILY PO 06/19/25 10:00 UNV Atorvastatin Calcium 20 mg HS PO 06/18/25 22:00 UNV Exam Vital Signs Vital Signs Date Time Temp Pulse Resp B/P (MAP) Pulse Ox O2 Delivery O2 Flow Rate FiO2 06/18/25 12:51 51 06/18/25 10:30 16 95 Room Air* 0 21 06/18/25 10:30 98.2 127/81 (96) 98.2 Exam General Appearance: Cooperative. Well developed. Well nourished. NAD Head Exam: Normal inspection Neck Exam: Normal inspection. Non-tender. Normal alignment Pulmonary/Respiratory: Chest non-tender. Bilateral lung base crackles Cardiovascular/Chest: Regular rate and rhythm. No murmurs. No JVD. Peripheral Pulses: 2+ Radial (R). 2+ Radial (L). 2+ Pedal (R). 2+ Pedal (L) Abdominal Exam: Normal bowel sounds. Soft. Nontender. No hepatospenomegaly. No masses Ankle Exam: Negative ankle edema Lower extremities: Negative lower extremity edema Neuro/Mental Status: A&O x4. Coherent Thoughts/Psych: Normal thought pattern. Appropriate mood and affect. Good judgement and insight Appearance: In no acute distress Skin Exam: Normal inspection. Normal color. Warm. Dry Labs/Xrays Labs Test 06/18/25 14:58 06/18/25 11:22 06/18/25 10:41 Range/Units Urine Color Light-yellow Yellow Urine Clarity Clear Clear Urine pH 5.0 5.0-9.0 Urine Specific [place] 1.028 1.001-1.035 Urine Protein Negative Negative Urine Ketones Negative Negative Urine Blood Trace H Negative /uL Urine Nitrite Negative Negative Urine Bilirubin Negative Negative Urine Urobilinogen Normal Negative mg/dL Urine Leukocyte Esterase Negative Negative /uL Urine RBC 1 0 - 3 /hpf Urine Microscopic WBC 1 0-3 /HPF Urine Squamous Epithelial Cells None seen <5 /hpf Urine Bacteria None seen None Seen /hpf Urine Glucose 4+ H Normal mg/dL White Blood Count 8.1 4.4-10.8 10^3/uL Red Blood Count 5.61 4.5-5.90 10^6/uL Hemoglobin 18.3 H 13.5-17.5 g/dL Hematocrit 53.5 H 41.0-53.0 % Mean Corpuscular Volume 95.5 80.0-100.0 fL Mean Corpuscular Hemoglobin 32.7 H 28.0-32.0 pg Mean Corpuscular Hemoglobin Concent 34.2 32.0-36.0 g/dL Red Cell Distribution Width 13.8 11.8-14.3 % Platelet Count 158 140-450 10^3/uL Mean Platelet Volume 8.5 6.9-10.8 fL Neutrophils (%) (Auto) 47.4 37.0-80.0 % Lymphocytes (%) (Auto) 40.2 10.0-50.0 % Monocytes (%) (Auto) 9.3 0.0-12.0 % Eosinophils (%) (Auto) 2.3 0.0-7.0 % Basophils (%) (Auto) 0.8 0.0-2.0 % Neutrophils # (Auto) 3.9 1.6-8.6 10 ^3/uL Lymphocytes # (Auto) 3.3 0.4-5.4 10 ^3/uL Monocytes # (Auto) 0.8 0-1.3 10 ^3/uL Eosinophils # (Auto) 0.2 0-0.8 10 ^3/uL Basophils # (Auto) 0.1 0-0.2 10 ^3/uL Nucleated Red Blood Cells 0.1 % Sodium Level 139 136-145 mmol/L Potassium Level 3.7 3.5-5.1 mmol/L Chloride Level 105 98-107 mmol/L Carbon Dioxide Level 23 20-31 mmol/L Anion Gap 11 5-15 Blood Urea Nitrogen 11 9-23 mg/dL Creatinine 1.08 0.700-1.30 mg/dL Glomerular Filtration Rate Calc 70 >90 mL/min BUN/Creatinine Ratio 10.2 10.0-20.0 Serum Glucose 131 H 74-106 mg/dL Calcium Level 9.5 8.7-10.4 mg/dL Total Bilirubin 0.6 0.2-1.0 mg/dL Aspartate Amino Transferase (AST) 30 13-40 U/L Alanine Aminotransferase (ALT) 31 7-40 U/L Alkaline Phosphatase 74 46-116 U/L Total Protein 8.3 H 5.7-8.2 g/dL Albumin 4.4 3.2-4.8 g/dL SEPSIS Sepsis Screen Date sepsis recognized/suspect: Jun 18, 2025 Time Sepsis recognized/suspect: 1030 Recent Procedure: No On Antibiotic Therapy: Yes Respiratory Rate >20: No Heart Rate >90: No Temp<36 C (96.8 F) or >38.3 C: No SBP <90 or MAP <65 mmHG: No New Acute Mental Status Change: No Is the patient on CPAP, BIPAP,: No Physician Orders Chest Portable (06/18/25 10:02) Troponin-I Hs (06/18/25 13:02) Amiodarone 360mg/200ml Premix (Nexterone (06/18/25 10:15) Electrocardigram (06/18/25 10:06) Electrocardigram (06/18/25 11:06) Electrocardigram (06/18/25 13:06) Admit (06/18/25 14:49) Code Status (06/18/25 14:49) Vital Signs .PER UNIT PROTOCOL (06/18/25 14:49) Review Orders With Adm. (06/18/25 14:49) Notify Md Of Changes From Base (06/18/25 14:49) Advance Directive (06/18/25 14:49) Echo 2d Mode Cardiac Dop (06/18/25 14:49) Lipid Panel (06/18/25 14:49) Patient Condition (06/18/25 14:49) Allergies (06/18/25 14:49) Hemoglobin A1c (06/18/25 14:49) Nitroglycerin Sublingual (Ntrostat Subli (06/18/25 15:00) Morphine Sulfate Injection (06/18/25 15:00) Oxygen By Nasal Cannula (06/18/25 14:49) Stat Ekg For Chest Pain (06/18/25 14:49) Notify Md Of Changes From Base (06/18/25 14:49) Campus Rep For 24 Hours (06/18/25 14:49) Emergency Dysrhythmia Protocol (06/18/25 14:49) Rhythm Strips Once Every Shift (06/18/25 14:49) * Cardiology Consult (06/18/25 14:55) PTPTT (06/18/25 14:55) Enoxaparin Sodium (Lovenox) (06/18/25 22:00) Enoxaparin Sodium (Lovenox) (06/18/25 15:00) Furosemide Injection (Lasix Injection) (06/19/25 10:00) Furosemide Injection (Lasix Injection) (06/18/25 15:00) Magnesium (06/18/25 14:57) Pantoprazole Tablet (Protonix Tablet) (06/18/25 15:00) Pantoprazole Tablet (Protonix Tablet) (06/19/25 06:00) Aspirin Tablet (06/19/25 10:00) Atorvastatin (Lipitor) (06/18/25 22:00) Thyroid Stimulating Hormone (06/18/25 14:59) Covid19 Antigen Kiera (06/18/25 ) Rapid Influenza A&B (06/18/25 15:00) Vital Signs Date Time Temp Pulse Resp B/P (MAP) Pulse Ox O2 Delivery O2 Flow Rate FiO2 06/18/25 12:51 51 06/18/25 12:00 52 06/18/25 10:52 63 06/18/25 10:30 48 16 95 Room Air* 0 21 06/18/25 10:30 98.2 48 16 127/81 (96) 95 98.2 06/18/25 10:23 63 06/18/25 10:10 59 06/18/25 09:55 98.2 64 20 165/91 96 98.2 06/18/25 09:49 59 Laboratory Tests Test 06/18/25 10:41 White Blood Count 8.1 10^3/uL (4.4-10.8) Medications Medications Dose Ordered Sig/Lizabeth Route Start Time Stop Time Status Last Admin Dose Admin Aspirin 325 mg ONCE ONCE PO 06/18/25 10:15 06/18/25 10:16 DC 06/18/25 10:44 325 MG Sodium Chloride 1,000 ml @ 1,000 mls/hr Q1H ONCE IV 06/18/25 14:00 06/18/25 14:59 DC 06/18/25 14:33 1,000 MLS/HR Assessment/Plan Assessment/Plan Atrial flutter with rapid ventricular response Tachy-norma arrhythmia, bradycardia to rapid ventricular response -currently rate controlled -cardiology consultation -pending echocardiogram, TSH -keep potassium greater than four, magnesium greater than two -anticoagulation with therapeutic enoxaparin 1 mg/kg b.i.d. Acute diastolic versus systolic heart failure NYHA class three -IV Lasix 20 mg daily -strict I&O -echocardiogram -chest x-ray showed cardiomegaly with pulmonary vascular congestion Left anterior fascicular block -EKG: Prolonged [place] with QRS hurt 119. Anterior fascicular block. History of CT History of CT -continue aspirin 81 mg p.o. daily Hypertension LVH -not on any medication at this point Diabetes mellitus type 2 HGB A1c 8% -continue lifestyle modification, low-carbohydrate index diet, encouraged weight loss Dyslipidemia -atorvastatin 20 mg p.o. daily Morbid obesity BMI 39.7 kg/m2 PUD prophylaxis with Protonix DVT prophylaxis with enoxaparin Goals of care discussed greater than 24 minutes, DNI DNR. Plan discussed with Dr. Nguyễn Plan discussed with: Patient, Other My Orders Orders - MILAN ARTEAGA RESIDENT Procedure Category Date Status Time Admit ADMIT 06/18/25 Transmitted 14:49 Code Status CODE 06/18/25 Transmitted 14:49 Vital Signs [facility] 06/18/25 In Process 14:49 Review Orders With [facility] 06/18/25 In Process Adm.Md 14:49 Notify Of Changes [facility] 06/18/25 In Process From Base 14:49 Advance Directive [facility] 06/18/25 In Process 14:49 Echo 2d Mode Cardiac US 06/18/25 Logged DOP 14:49 Lipid Panel LAB 06/18/25 In Process 14:49 Patient Condition ORDERS 06/18/25 Transmitted 14:49 Allergies [facility] 06/18/25 In Process 14:49 Hemoglobin A1c LAB 06/18/25 In Process 14:49 Nitroglycerin PHA 06/18/25 Logged Sublingual (Ntrostat 15:00 Morphine Sulfate PHA 06/18/25 Logged Injection 15:00 Oxygen By Nasal RT 06/18/25 Transmitted Cannula 14:49 Stat Ekg For Chest [facility] 06/18/25 In Process Pain 14:49 Notifart Lazaro Of Changes [facility] 06/18/25 In Process From Base 14:49 Campus Rep For ALEX 06/18/25 In Process 24 Hours 14:49 Emergency Dysrhythmia [facility] 06/18/25 In Process Protocol 14:49 Rhythm Strips Once [facility]LEX 06/18/25 In Process Every Shift 14:49 * Cardiology Consult CONS 06/18/25 Transmitted 14:55 PTPTT LAB 06/18/25 Logged 14:55 Enoxaparin Sodium PHA 06/18/25 Logged (Lovenox) 22:00 Enoxaparin Sodium PHA 06/18/25 Logged (Lovenox) 15:00 Furosemide Injection PHA 06/19/25 Logged (Lasix Injection) 10:00 Furosemide Injection PHA 06/18/25 Logged (Lasix Injection) 15:00 Magnesium LAB 06/18/25 In Process 14:57 Pantoprazole Tablet PHA 06/18/25 Logged (Protonix Tablet) 15:00 Pantoprazole Tablet PHA 06/19/25 Logged (Protonix Tablet) 06:00 Aspirin Tablet PHA 06/19/25 Logged 10:00 Atorvastatin (Lipitor) PHA 06/18/25 Logged 22:00 Thyroid Stimulating LAB 06/18/25 In Process Hormone 14:59 Covid19 Antigen Kiera LAB 06/18/25 Logged Rapid Influenza A&B LAB 06/18/25 Logged 15:00 Date of Service: Jun 18, 2025 Billing Provider: OBDULIA NGUYỄN MD Common Visit Codes: 55164-MCAGOFA INP/OBS CARE (HIGH) Secondary Visit Codes: 02539-[id number] CARE PLAN 30 MINUTES MILAN ARTEAGA Jun 18, 2025 15:10
[2025-06-18 15:23] LABS: Triglycerides 220 mg/dL (< 150)
[2025-06-18 15:24] LABS: Cholesterol 126 mg/dL (< 200); HDL Cholesterol 35 mg/dL (40-59)
[2025-06-18] MEDS: ENOXAPARIN SOD 120 MG/0.8 ML SYRINGE SC ONE (15:46)
[2025-06-18 16:21] LABS: INR 1.02 (0.9-1.15); Partial Thromboplastin Time 26.1 SEC (24.5-34.5); Prothrombin Time 10.8 sec (9.3-11.8)
--- NOTE | 2025-06-18 17:32 | DVHINCON2 ---
Date Seen: Jun 18, 2025 Referring Physician John Reason for Consultation Atrial Flutter History of Present Illness 80-year-old male with PMH for atrial fibrillation, HTN, previous heavy ETOH use, presents to the hospital with worsening shortness of breath, chest pressure. Chest pressure noted to be left-sided at titrate the left arm, associated with shortness of breath. Upon evaluation in the ER patient found to be in atrial flutter with RVR, was subsequently started on amiodarone per protocol patient became very bradycardic heart rate dropping to the low 30s SVR and therefore amiodarone was discontinued. Cardiology consulted. Troponin trending negative x3. CXR showing cardiomegaly with pulmonary vascular congestion. EKG reviewed and shows atrial flutter with variable AV block at 63 beats per minute. LVH. No significant ST and T-wave abnormality noted. Past Medical History As stated above Past Surgical History As stated above Family History: Colon cancer G8 MOTHER (UNKNOWN CANCER) G8 FATHER (UNKNOWN CANCER) Social History Previous history of heavy ETOH use, former smoker Allergies: Coded Allergies: NO KNOWN ALLERGIES (Unverified , 03/12/20) Home Meds Reported Medications Acetaminophen (Tylenol Extra Strength) 500 Mg Tab, 500 MG PO Q6HP PRN for PAIN, TAB 03/12/20 Current Medications Current Medications Medications (Trade) Dose Ordered Sig/Lizabeth Route PRN Reason Start Time Stop Time Status Last Admin Nitroglycerin (Ntrostat Sublingual) 0.4 mg Q5MINP PRN SL FOR CHEST PAIN 06/18/25 15:00 Morphine Sulfate 2 mg Q30M PRN IV FOR CHEST PAIN 06/18/25 15:00 Enoxaparin Sodium (Lovenox) 120 mg Q12H SC 06/19/25 04:00 Furosemide (Lasix Injection) 20 mg DAILY IV 06/19/25 10:00 Pantoprazole Sodium (Protonix Tablet) 40 mg DAILY@0600 PO 06/19/25 06:00 Aspirin 81 mg DAILY PO 06/19/25 10:00 Atorvastatin Calcium (Lipitor) 20 mg HS PO 06/18/25 22:00 Review of Systems Constitutional: No: Fever, Chills, Sweats, Weakness, Malaise, Other Eyes: No: Pain, Vision change, Conjunctivae inflammation, Eyelid inflammation, Other, Redness ENT: No: Ear pain, Ear discharge, Nose pain, Nose discharge, Nose congestion, Mouth pain, Mouth swelling, Throat pain, Throat swelling, Other Respiratory: No: Cough, Dry, Shortness of breath, SOB with exertion, Wheezing, Hemoptysis, Pleuritic Pain, Sputum, Wheezing, Other Cardiovascular: ; No: Chest Pain Palpitations, Orthopnea, Paroxysmal Noc. Dyspnea, Edema, Lt Headedness, Other Gastrointestinal: No: Nausea, Vomiting, Abdominal Pain, Diarrhea, Constipation, Melena, Hematochezia, Other Genitourinary: No Dysuria, No Frequency, No Incontinence, No Hematuria, No Retention, No Other Musculoskeletal: neck pain; No: other, shoulder pain, arm pain, back pain, hand pain, leg pain, foot pain Skin: No: Rash, Lesions, Jaundice, Bruising, Other Neurological: Other (Dizziness, headache.); No: Weakness, Numbness, Incoordination, Change in speech, Confusion, Seizures Vital Signs Vital Signs Date Time Temp Pulse Resp B/P (MAP) Pulse Ox O2 Delivery O2 Flow Rate FiO2 06/18/25 16:03 98.2 54 16 126/70 (88) 95 98.2 06/18/25 10:30 Room Air* 0 21 Physical Exam General appearance: Ill-appearing, in mild acute distress. HEENT: Exam shows: Normocephalic, atraumatic, PERRLA, EOMI, WAINWRIGHT Neck: Supple, no bruits Chest: Equal chest excursion bilaterally. Breath sounds diminished/rhonchi Heart: Rhythm: Irregular rate; no murmur or gallop Abdomen: Exam shows: Soft, nontender, nondistended Musculoskeletal: No clubbing, no cyanosis, trace lower extremity edema Dermatology: Skin warm, moist. Neurological: Exam shows: Alert and oriented x4, normal speech Available prior records, labs, EKG, rhythm strips reviewed and interpreted Labs/Diagnostic Data Labs Test 06/18/25 15:51 06/18/25 14:58 06/18/25 11:22 06/18/25 10:41 Range/Units Prothrombin Time 10.8 9.3-11.8 sec Prothrombin Time INR 1.02 0.9-1.15 Activated Partial Thromboplast Time 26.1 24.5-34.5 SEC Magnesium Level 2.1 1.6-2.6 mg/dL Troponin I High Sensitivity 18 </=54 ng/L Triglycerides Level 220 H < 150 mg/dL Cholesterol Level 126 < 200 mg/dL LDL Cholesterol 71 < 100 mg/dL HDL Cholesterol 35 L 40-59 mg/dL Thyroid Stimulating Hormone (TSH) 1.78 0.55-4.78 uIU/mL Urine Color Light-yellow Yellow Urine Clarity Clear Clear Urine pH 5.0 5.0-9.0 Urine Specific [place] 1.028 1.001-1.035 Urine Protein Negative Negative Urine Ketones Negative Negative Urine Blood Trace H Negative /uL Urine Nitrite Negative Negative Urine Bilirubin Negative Negative Urine Urobilinogen Normal Negative mg/dL Urine Leukocyte Esterase Negative Negative /uL Urine RBC 1 0 - 3 /hpf Urine Microscopic WBC 1 0-3 /HPF Urine Squamous Epithelial Cells None seen <5 /hpf Urine Bacteria None seen None Seen /hpf Urine Glucose 4+ H Normal mg/dL White Blood Count 8.1 4.4-10.8 10^3/uL Red Blood Count 5.61 4.5-5.90 10^6/uL Hemoglobin 18.3 H 13.5-17.5 g/dL Hematocrit 53.5 H 41.0-53.0 % Mean Corpuscular Volume 95.5 80.0-100.0 fL Mean Corpuscular Hemoglobin 32.7 H 28.0-32.0 pg Mean Corpuscular Hemoglobin Concent 34.2 32.0-36.0 g/dL Red Cell Distribution Width 13.8 11.8-14.3 % Platelet Count 158 140-450 10^3/uL Mean Platelet Volume 8.5 6.9-10.8 fL Neutrophils (%) (Auto) 47.4 37.0-80.0 % Lymphocytes (%) (Auto) 40.2 10.0-50.0 % Monocytes (%) (Auto) 9.3 0.0-12.0 % Eosinophils (%) (Auto) 2.3 0.0-7.0 % Basophils (%) (Auto) 0.8 0.0-2.0 % Neutrophils # (Auto) 3.9 1.6-8.6 10 ^3/uL Lymphocytes # (Auto) 3.3 0.4-5.4 10 ^3/uL Monocytes # (Auto) 0.8 0-1.3 10 ^3/uL Eosinophils # (Auto) 0.2 0-0.8 10 ^3/uL Basophils # (Auto) 0.1 0-0.2 10 ^3/uL Nucleated Red Blood Cells 0.1 % Sodium Level 139 136-145 mmol/L Potassium Level 3.7 3.5-5.1 mmol/L Chloride Level 105 98-107 mmol/L Carbon Dioxide Level 23 20-31 mmol/L Anion Gap 11 5-15 Blood Urea Nitrogen 11 9-23 mg/dL Creatinine 1.08 0.700-1.30 mg/dL Glomerular Filtration Rate Calc 70 >90 mL/min BUN/Creatinine Ratio 10.2 10.0-20.0 Serum Glucose 131 H 74-106 mg/dL Hemoglobin A1c 8.0 H <5.7 % A1C Calcium Level 9.5 8.7-10.4 mg/dL Total Bilirubin 0.6 0.2-1.0 mg/dL Aspartate Amino Transferase (AST) 30 13-40 U/L Alanine Aminotransferase (ALT) 31 7-40 U/L Alkaline Phosphatase 74 46-116 U/L Total Protein 8.3 H 5.7-8.2 g/dL Albumin 4.4 3.2-4.8 g/dL Assessment * Atrial flutter with episode RVR, SVR. Tachy-norma - hold AV mesfin blockers, antiarrhythmics. Heart rate stable. Continue telemetry monitoring. Patient endorses did not want any type of surgical intervention/ppm if needed, patient DNR. Continue medical management. * Acute on chronic diastolic HF - continue diuresis with Lasix. Monitor strict I&Os. Follow up echo. * Chest pain- troponins negative. EKG negative for acute ischemic changes. Follow up echo. Patient does not want any type of invasive procedures/ischemic workup. Continue conservative medical management. Case Discussed with Dr Graham. Follow up echo, continue telemetry monitoring. Avoid AV mesfin blockers. Patient adamant about not want any type of invasive workup. We will continue with medical management, continue monitoring. Critical care, time spent: 40 minutes This medical document was created using an electronic medical record system with voice recognition software and computerized dictation system. Although this document has been carefully reviewed, there might still be some phonetic and typographical errors. Occasional wrong-word or ``sound-alike substitutions may have occurred due to the inherent limitations of voice recognition software. These areas are purely typographical due to imperfections of the software programs and do not reflect any compromise in the patient's medical care. Please read the chart carefully and recognize, using context, where these substitutions have occurred. Thank you for allowing me to participate in the management of this patient. The treatment plan was discussed with and agreed upon by patient/family including requesting consultants and ordering of imaging/procedures. Plan discussed with: Patient NYHA Physical activity limitations: Class3(Marked) ordinary (activity causes symtoms) Date of Service: Jun 18, 2025 Billing Provider: ASAD FERNANDEZ Cardiology Common Codes: [id number] INP/OBS CARE (High), 73557-[id number] CARE 30-74 MIN ASAD FERNANDEZ Jun 18, 2025 17:32
--- NOTE | 2025-06-18 18:26 | DVHSR ---
APPROVED REPORT EXAM: Two-dimensional and M-mode echocardiogram with Doppler and color Doppler. Blood Pressure: 127/81 mmHg INDICATION Atrial flutter RISK FACTORS Obesity: Height: 5'9", Weight: 279 DIMENSIONS LVDd (3.8-5.7cm)LA (2D)3.8 (1.9-4.0cm)Aortic Root3.9 (2.0-3.7cm) LVDs (2.5-4.0cm)LA (MM) (1.9-4.0cm)Aortic Cusp Exc1.3 (1.5-2.0cm) EF (%) 45.0 (55-70%)Rt. Atrium3.3 (1.9-4.0cm)Asc. Aorta cm Mitral Valve MitralMitral Stenosis E wave0.87m/sMV Mean GR.mmHg A wave0.37m/sMV Peak GR.mmHg E/A ratio2.42D MVAcm2 DECEL [id number] 1/2 Tim[place] Aortic Valve Aortic ValveAortic Stenosis V10.99m/Rebekah Mean GR.9mmHg V22.09m/Rebekah Peak GR.17mmHg LVOT Diameter2.3 (1.8-2.4cm)Doppler AVA1.97cm2 Other Information Quality : Technically LimitedRhythm : Technically limited study due to body habitus. Conclusion Undetermined rhythm. Difficult acoustic windows. Mild aortic root dilation. Difficult to see endocardial structures. Septal hypertrophy present. Mild aortic sclerosis. The mitral valve appears to be structurally normal. Left ventricular function is diminished. There was global hypokinesis. EF is approximately 40%. RV function is moderately diminished. Mild gradient across the aortic valve of18 mmHg. No intracardiac masses thrombi or vegetations discernible.
[2025-06-18 20:01] LABS: COVID19 ANTIGEN SOFIA FIA NEGATIVE (NEGATIVE)
[2025-06-18] MEDS: ATORVASTATIN 20 MG TAB PO SCH (22:07)
[2025-06-18 23:51] VITALS: PULSE 51; RESP 14; O2SAT 93
[2025-06-19] MEDS: ENOXAPARIN SOD 120 MG/0.8 ML SYRINGE SC SCH (03:54)
[2025-06-19] MEDS: PANTOPRAZOLE 40 MG TAB PO SCH (05:38)
[2025-06-19 06:34] LABS: Anion Gap 10 (5-15); Carbon Dioxide 27 mmol/L (20-31); Chloride 104 mmol/L (98-107); Potassium 3.6 mmol/L (3.5-5.1); Sodium 141 mmol/L (136-145)
[2025-06-19 06:36] LABS: Calcium 8.8 mg/dL (8.7-10.4)
[2025-06-19 06:40] LABS: Hemoglobin 17.7 g/dL (13.5-17.5); Nucleated Red Blood Cells % 0.3 %
[2025-06-19 06:41] LABS: BUN/Creatinine Ratio 9.6 (10.0-20.0); Blood Urea Nitrogen 11 mg/dL (9-23); Magnesium 2.4 mg/dL (1.6-2.6)
[2025-06-19 06:42] LABS: Hematocrit 52.1 % (41.0-53.0); Mean Corpuscular Hemoglobin 32.6 pg (28.0-32.0); Mean Corpuscular Volume 95.6 fL (80.0-100.0)
[2025-06-19 06:43] LABS: Glucose 131 mg/dL (74-106)
[2025-06-19 07:15] VITALS: PULSE 56; RESP 14; O2SAT 93
[2025-06-19] MEDS: FUROSEMIDE 20 MG/2 ML VIAL IV SCH (10:35)
--- NOTE | 2025-06-19 10:50 | ECG ---
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
[2025-06-19 11:45] VITALS: PULSE 83; RESP 20; O2SAT 97
--- NOTE | 2025-06-19 13:22 | ECG ---
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
--- NOTE | 2025-06-19 13:22 | ECG ---
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
--- NOTE | 2025-06-19 14:13 | DVHDS2 ---
Discharge Summary Date of Admission Jun 18, 2025 at 14:49 Date of Discharge: Jun 19, 2025 Labs/Diagnostic Data: Laboratory Results Test 06/19/25 05:51 06/18/25 19:10 06/18/25 15:51 06/18/25 14:58 White Blood Count 7.0 10^3/uL (4.4-10.8) Red Blood Count 5.45 10^6/uL (4.5-5.90) Hemoglobin 17.7 g/dL (13.5-17.5) Hematocrit 52.1 % (41.0-53.0) Mean Corpuscular Volume 95.6 fL (80.0-100.0) Mean Corpuscular Hemoglobin 32.6 pg (28.0-32.0) Mean Corpuscular Hemoglobin Concent 34.1 g/dL (32.0-36.0) Red Cell Distribution Width 13.7 % (11.8-14.3) Platelet Count 143 10^3/uL (140-450) Mean Platelet Volume 8.6 fL (6.9-10.8) Neutrophils (%) (Auto) 50.2 % (37.0-80.0) Lymphocytes (%) (Auto) 35.8 % (10.0-50.0) Monocytes (%) (Auto) 11.3 % (0.0-12.0) Eosinophils (%) (Auto) 2.1 % (0.0-7.0) Basophils (%) (Auto) 0.6 % (0.0-2.0) Neutrophils # (Auto) 3.5 10 ^3/uL (1.6-8.6) Lymphocytes # (Auto) 2.5 10 ^3/uL (0.4-5.4) Monocytes # (Auto) 0.8 10 ^3/uL (0-1.3) Eosinophils # (Auto) 0.1 10 ^3/uL (0-0.8) Basophils # (Auto) 0 10 ^3/uL (0-0.2) Nucleated Red Blood Cells 0.3 % Sodium Level 141 mmol/L (136-145) Potassium Level 3.6 mmol/L (3.5-5.1) Chloride Level 104 mmol/L (98-107) Carbon Dioxide Level 27 mmol/L (20-31) Anion Gap 10 (5-15) Blood Urea Nitrogen 11 mg/dL (9-23) Creatinine 1.15 mg/dL (0.700-1.30) Glomerular Filtration Rate Calc 65 mL/min (>90) BUN/Creatinine Ratio 9.6 (10.0-20.0) Serum Glucose 131 mg/dL (74-106) Calcium Level 8.8 mg/dL (8.7-10.4) Magnesium Level 2.4 mg/dL (1.6-2.6) Influenza Type A Antigen Negative (Negative) Influenza Type B Antigen Negative (Negative) SARS-CoV-2 Antigen (Rapid) Negative (NEGATIVE) Prothrombin Time 10.8 sec (9.3-11.8) Prothrombin Time INR 1.02 (0.9-1.15) Activated Partial Thromboplast Time 26.1 SEC (24.5-34.5) Troponin I High Sensitivity 18 ng/L (</=54) Triglycerides Level 220 mg/dL (< 150) Cholesterol Level 126 mg/dL (< 200) LDL Cholesterol 71 mg/dL (< 100) HDL Cholesterol 35 mg/dL (40-59) Thyroid Stimulating Hormone (TSH) 1.78 uIU/mL (0.55-4.78) Test 06/18/25 11:22 06/18/25 10:41 Urine Color Light-yellow (Yellow) Urine Clarity Clear (Clear) Urine pH 5.0 (5.0-9.0) Urine Specific [place] 1.028 (1.001-1.035) Urine Protein Negative (Negative) Urine Ketones Negative (Negative) Urine Blood Trace /uL (Negative) Urine Nitrite Negative (Negative) Urine Bilirubin Negative (Negative) Urine Urobilinogen Normal mg/dL (Negative) Urine Leukocyte Esterase Negative /uL (Negative) Urine RBC 1 /hpf (0 - 3) Urine Microscopic WBC 1 /HPF (0-3) Urine Squamous Epithelial Cells None seen /hpf (<5) Urine Bacteria None seen /hpf (None Seen) Urine Glucose 4+ mg/dL (Normal) Hemoglobin A1c 8.0 % A1C (<5.7) Total Bilirubin 0.6 mg/dL (0.2-1.0) Aspartate Amino Transferase (AST) 30 U/L (13-40) Alanine Aminotransferase (ALT) 31 U/L (7-40) Alkaline Phosphatase 74 U/L (46-116) B-Type Natriuretic Peptide 16.25 pg/mL (0-100) Total Protein 8.3 g/dL (5.7-8.2) Albumin 4.4 g/dL (3.2-4.8) Other Laboratory Tests 06/19/25 05:51 Brief Hx & Hospital Course: 80 M with HTN, afib, admitted for SOB. in ED found to have flutter with variable av block and tachy norma. initially refused PPM, now interested in. fam request transfer to [place] [facility]. peer to peer done. physical exam aox4, forgetful obese JVD to jaw on RA b/l crackles s1 s2 irregular abdomen soft trace le edema labs ekg imaging reviewed telemetry revievwed Assessment and plan aflutter, tachy norma w variable block acute on chronic systolic HF HFrEf 40% polycythemia HLD glucosuria cardio consult, consider PPM patient and family wants transfer to [place] in the mean time, diurese net neg 1L lovenox therapeutic resume home meds avoid bb diet cardiac dvt ppx lovenox full code crit care tiem 35 mins Condition at Discharge: Stable Final Diagnosis/Problems List new HFrEF aflutter w/ variable block with tachy norma Discharge Disposition: Acute Care Facility Discharge Instruct/Medications Diet: Consistent carbohydrate, Cardiac 2g Na,low cholest Activity: No Restrictions, As Tolerated Scheduled PRN Acetaminophen (Tylenol Extra Strength), 500 MG PO Q6HP PRN for PAIN, (Reported) Discharge Statement: "Patient was advised to return to the ER or call 911 if any headaches, dizziness, shortness of breath, chest pain, abdominal pain, bleeding, fevers, or worsening of medical condition. Patient was counseled about treatment plan, medications, possible side effects, patientverbalized understanding. All questions were answered to the best of my ability. This discharge took greater then 30 minutes in planning, reviewing documentation, counseling the patient, and discussing with other team members." ASSESSMENT ASSESSMENT Assessment new HFpEF aflutter w/ variable block with tachy norma Date of Service: Jun 19, 2025 Billing Provider: OG INGRAM MD Common Visit Codes: [id number] CARE 30-74 MIN OG INGRAM MD Jun 19, 2025 14:13
[2025-06-19 18:00] VITALS: BP 127/90; PULSE 88; RESP 14; TEMP 98.2; O2SAT 91
== END 2025-06-19 21:07 | disposition short-term general hospital (02) | DRG 308 ==
LOC: EDBD 09:48 → ER 09:48 → OVERFLOW 14:49 → UNDODISIN 06-19 17:39 → OVERFLOW 06-19 18:56
PROVIDERS: ADMIT Student in an Organized Health Care Education/Training Program; ATTEND Student in an Organized Health Care Education/Training Program
DX: I48.92 Unspecified atrial flutter (principal); I50.43 Acute on chronic combined systolic (congestive) and diastolic (congestive) heart failure; I11.0 Hypertensive heart disease with heart failure; Z68.39 Body mass index [BMI] 39.0-39.9, adult; I49.5 Sick sinus syndrome; E66.01 Morbid (severe) obesity due to excess calories; E11.9 Type 2 diabetes mellitus without complications; D75.1 Secondary polycythemia; I44.4 Left anterior fascicular block; E78.5 Hyperlipidemia, unspecified; F03.90 Unspecified dementia, unspecified severity, without behavioral disturbance, psychotic disturbance, mood disturbance, and anxiety; I44.30 Unspecified atrioventricular block; Z66 Do not resuscitate; Z20.822 Contact with and (suspected) exposure to COVID-19; I48.91 Unspecified atrial fibrillation; I25.2 Old myocardial infarction; Z79.82 Long term (current) use of aspirin; Z79.899 Other long term (current) drug therapy; Z80.0 Family history of malignant neoplasm of digestive organs; Z87.891 Personal history of nicotine dependence; Z90.49 Acquired absence of other specified parts of digestive tract
CPT/HCPCS: 36415; 71045; 80048; 80053; 80061; 81001; 83036; 83735; 83880; 84443; 84484; 85025; 85610; 85730; 87426; 87804; 93005; 93306; 99291; 99292; G0378

== ENCOUNTER 2025-07-22 08:46 | Inpatient (IN) | payer OTHER, MEDICARE ==
[~2025-07-22] VITALS: Ht 177.8 cm; Wt 111.9 kg
--- NOTE | 2025-07-22 09:15 | ED.PDOC ---
Altered Mental Status HPI Comments This is a 80 year-old male with a Hx of Dementia, who presents to the ED via EMS for ALOC. Patient is accompanied by his professional system administrator at bedside. Grain Merchandising Manager reports patient has had arrhythmia for days, with incoherence as of today. Grain Merchandising Manager states he was told to call EMS upon patient acting abnormal. Per Grain Merchandising Manager, patient has had a Pacemaker in place as of June 27. Patient has no further complaints or modifying factors at this time. Chief Complaint: ALOC Time Seen by MD: 09:07 Primary Care Provider: MA Reviewed Notes: Medications, Allergies Allergies: Coded Allergies: NO KNOWN ALLERGIES (Unverified , 03/12/20) Home Meds Reported Medications Acetaminophen (Tylenol Extra Strength) 500 Mg Tab, 500 MG PO Q6HP PRN for PAIN, TAB 03/12/20 Mode of Arrival: EMS Severity: Moderate Timing: Hours Duration: Since onset Quality: Decreased Alertness, Confusion History of: Dementia Past Medical History PAST MEDICAL HISTORY: AFIB, Dementia, HTN Surgical History: Denies all surgeries Social History Smoker: Non-Smoker Alcohol: Denies ETOH Use Drugs: Denies Drug Use Lives In: Home Constitutional: denies: chills, diaphoresis, fatigue, fever, malaise, sweats, weakness, others EENTM: denies: blurred vision, double vision, ear bleeding, ear discharge, ear drainage, ear pain, ear ringing, eye pain, eye redness, hearing loss, mouth pain, mouth swelling, nasal discharge, nose bleeding, nose congestion, nose pain, photophobia, tearing, throat pain, throat swelling, voice changes, others Respiratory: denies: cough, hemoptysis, orthopnea, SOB at rest, shortness of breath, SOB with excertion, stridor, wheezing, others Cardiovascular: denies: chest pain, dizzy spells, diaphoresis, Dyspnea on exertion, edema, irregular heart beat, left arm pain, lightheadedness, palpitations, PND, syncope, others Gastrointestinal: denies: abdomen distended, abdominal pain, blood streaked bowels, constipated, diarrhea, dysphagia, difficulty swallowing, hematemesis, melena, nausea, poor appetite, poor fluid intake, rectal bleeding, rectal pain, vomiting, others Genitourinary: denies: burning, dysuria, flank pain, frequency, hematuria, incontinence, penile discharge, penile sore, pain, testicle pain, testicle swelling, urgency, others Neurological: denies: dizziness, fainting, headache, left sided numbness, left sided weakness, numbness, paresthesia, pre-existing deficit, right sided numbness, right sided weakness, seizure, speech problems, tingling, tremors, weakness, others Musculoskeletal: denies: back pain, gout, joint pain, joint swelling, muscle pain, muscle stiffness, neck pain, others Integumetry: denies: bruises, change in color, change in hair/nails, dryness, laceration, lesions, lumps, rash, wounds, others Allergic/Immunocompromised: denies: Difficulty Healing, Frequent Infections, Hives, Itching, others Hematologic/Lymphatic: denies: anemia, blood clots, easy bleeding, easy bruising, swollen glands, others Endocrine: denies: excessive hunger, excessive sweating, excessive thirst, excessive urination, flushing, intolerance to cold, intolerance to heat, unexplained weight gain, unexplained weight loss, others Psychiatric: denies: anxiety, bipolar disorder, depression, hopeless, panic disorder, schizophrenia, sleepless, suicidal, others Unable to Obtain due to: Dementia All Other Systems: Reviewed and Negative Physical Exam General Appearance: Moderate Distress, Obese HEENT: Normal ENT Inspection Neck: Normal Respiratory: No Respiratory Distress, Normal Breath Sounds Cardiovascular: No Edema Breast Exam: Deferred Gastrointestinal: Non Tender, Soft Genitalia: Deferred Pelvic: Deferred Rectal: Deferred Extremities: No calf tenderness, Normal capillary refill, Normal inspection, Normal range of motion, Non-tender, No pedal edema Musculoskeletal : Apperance: Normal Neurologic: Disoriented, Other (Patient Confused ) Cerebellar Function: Normal Reflexes: Normal Skin: Normal Color, Warm Lymphatic: No Adenopathy Was a procedure done? Was a procedure done?: No Differential Diagnosis (ALOC) Differential Diagnosis: Dehydration, Closed Head Injury X-Ray, Labs, Meds, VS Vital Signs Date Time Temp Pulse Resp B/P (MAP) Pulse Ox O2 Delivery O2 Flow Rate FiO2 07/22/25 12:35 70 12 138/87 (104) 93 07/22/25 11:11 97.9 80 16 160/98 98 97.9 07/22/25 11:02 70 14 151/116 (128) 94 07/22/25 09:00 Room Air* 0 21 07/22/25 09:00 98.7 70 19 132/85 (101) 94 98.7 Lab Test 07/22/25 13:12 07/22/25 10:51 07/22/25 10:40 07/22/25 09:53 Range/Units Troponin I High Sensitivity 15 14 13 </=54 ng/L Urine Color Light-yellow Yellow Urine Clarity Clear Clear Urine pH 5.5 5.0-9.0 Urine Specific [place] 1.025 1.001-1.035 Urine Protein Negative Negative Urine Ketones Negative Negative Urine Blood 2+ H Negative /uL Urine Nitrite Negative Negative Urine Bilirubin Negative Negative Urine Urobilinogen Normal Negative mg/dL Urine Leukocyte Esterase Negative Negative /uL Urine RBC 57 0 - 3 /hpf Urine Microscopic WBC 11 H 0-3 /HPF Urine Squamous Epithelial Cells None seen <5 /hpf Urine Bacteria None seen None Seen /hpf Urine Glucose 4+ H Normal mg/dL White Blood Count 7.1 4.4-10.8 10^3/uL Red Blood Count 5.66 4.5-5.90 10^6/uL Hemoglobin 18.5 H 13.5-17.5 g/dL Hematocrit 54.5 H 41.0-53.0 % Mean Corpuscular Volume 96.2 80.0-100.0 fL Mean Corpuscular Hemoglobin 32.6 H 28.0-32.0 pg Mean Corpuscular Hemoglobin Concent 33.9 32.0-36.0 g/dL Red Cell Distribution Width 13.9 11.8-14.3 % Platelet Count 144 140-450 10^3/uL Mean Platelet Volume 8.3 6.9-10.8 fL Neutrophils (%) (Auto) 48.4 37.0-80.0 % Lymphocytes (%) (Auto) 39.9 10.0-50.0 % Monocytes (%) (Auto) 9.6 0.0-12.0 % Eosinophils (%) (Auto) 1.7 0.0-7.0 % Basophils (%) (Auto) 0.4 0.0-2.0 % Neutrophils # (Auto) 3.4 1.6-8.6 10 ^3/uL Lymphocytes # (Auto) 2.8 0.4-5.4 10 ^3/uL Monocytes # (Auto) 0.7 0-1.3 10 ^3/uL Eosinophils # (Auto) 0.1 0-0.8 10 ^3/uL Basophils # (Auto) 0 0-0.2 10 ^3/uL Nucleated Red Blood Cells 0.3 % Sodium Level 135 L 136-145 mmol/L Potassium Level 4.0 3.5-5.1 mmol/L Chloride Level 101 98-107 mmol/L Carbon Dioxide Level 25 20-31 mmol/L Anion Gap 9 5-15 Blood Urea Nitrogen 12 9-23 mg/dL Creatinine 0.99 0.700-1.30 mg/dL Glomerular Filtration Rate Calc 77 >90 mL/min BUN/Creatinine Ratio 12.1 10.0-20.0 Serum Glucose 111 H 74-106 mg/dL Calcium Level 9.7 8.7-10.4 mg/dL B-Type Natriuretic Peptide 39.62 0-100 pg/mL Test 07/22/25 09:31 Range/Units Lactic Acid Level 1.8 0.4-2.0 mmol/L Current Medications Medications (Trade) Dose Ordered Sig/Lizabeth Route Start Time Stop Time Status Last Admin Haloperidol Lactate (Haldol) 10 mg ONCE ONCE IM 07/22/25 11:15 07/22/25 11:16 DC 07/22/25 11:43 Time of 1ST Reevaluation: 09:51 Reevaluation 1ST: Unchanged Patient Education/Counseling: Diagnosis, Treatment Family Education/Counseling: Diagnosis, Treatment SEPSIS Sepsis Screen Physician Orders Chest Portable (07/22/25 09:15) Electrocardigram (07/22/25 09:15) Insert [place] Catheter QSHIFT (07/22/25 09:15) Blood Culture (07/22/25 09:15) Electrocardigram (07/22/25 10:15) Electrocardigram (07/22/25 12:15) Head Without Contrast (07/22/25 12:26) Vital Signs Date Time Temp Pulse Resp B/P (MAP) Pulse Ox O2 Delivery O2 Flow Rate FiO2 07/22/25 12:35 70 12 138/87 (104) 93 07/22/25 11:11 97.9 80 16 160/98 98 97.9 07/22/25 11:02 70 14 151/116 (128) 94 07/22/25 09:00 Room Air* 0 21 07/22/25 09:00 98.7 70 19 132/85 (101 94 98.7 Laboratory Tests Test 07/22/25 09:31 07/22/25 09:53 Lactic Acid Level 1.8 mmol/L (0.4-2.0) White Blood Count 7.1 10^3/uL (4.4-10.8) Medications Medications Dose Ordered Sig/Lizabeth Route Start Time Stop Time Status Last Admin Dose Admin Haloperidol Lactate 10 mg ONCE ONCE IM 07/22/25 11:15 07/22/25 11:16 DC 07/22/25 11:43 Departure 1 Departure Time of Disposition: 19:26 (Acute metabolic encephalopathy. Workup so far is benign. We will admit patient for further workup and expert consultation) Impression: Primary Impression: Acute metabolic encephalopathy Additional Impression: Generalized weakness Disposition: ADMITTED INPATIENT Admit to: Med Surg Condition: Guarded Critical Care Note Critical Care Time?: Yes (30 min-critical care time only) Critical care comment: Altered mental status Authorized and Performed by: Caleb Lazcano MD Total critical care time: Approximately 36 minutes Due to a high probability of clinically significant, life threatening deterioration, the patient required my highest level of preparedness to intervene emergently and I personally spent this critical care time directly and personally managing the patient. This critical care time included obtaining a history; examining the patient; pulse oximetry; ordering and review of studies; arranging urgent treatment with development of a management plan; evaluation of patient's response to treatment; frequent reassessment; and, discussions with other providers. This critical care time was performed to assess and manage the high probability of imminent, life-threatening deterioration that could result in multi-organ failure. It was exclusive of separately billable procedures and treating other patients and teaching time. Please see my other sections and the rest of the note for further information on patient assessment and treatment. Stability Stability form required: No Heart Score Heart Score: Heart Score Response (Comments) Value History Slightly Suspicious 0 EKG Normal 0 Age >65 2 Risk Factors 1 or 2 risk factors 1 Troponin N/A 0 Total 3 I personally scribed for CALEB LAZCANO MD ([email or web address]) on 07/22/25 at 09:15. Electronically submitted by Mirlande Coleman ([employer]). I personally scribed for CALEB LAZCANO MD ([email or web address]) on 07/22/25 at 09:26. Electronically submitted by Mirlande Coleman ([email or web address]). CALEB LAZCANO MD Jul 22, 2025 09:15
--- NOTE | 2025-07-22 09:59 | DVH ---
CHEST RADIOGRAPH Indication: AMS Technique: Single frontal view of the chest was obtained Comparison: XY CHEST PORTABLE on DOS: 06/18/25 FINDINGS: Lines and Tubes: Interval placement of a pacemaker with pulse generator over the left chest. Lungs: Persistent findings suggesting pulmonary vascular congestion Pleura: No effusion. No pneumothorax. Cardiomediastinal contours: Unimproved cardiomegaly Bones: No acute osseous abnormality. IMPRESSION: 1. Pacemaker in place with pulse generator over the left chest. 2. Persistent findings of cardiomegaly and pulmonary vascular congestion.
[2025-07-22 10:09] LABS: Hematocrit 54.5 % (41.0-53.0); Hemoglobin 18.5 g/dL (13.5-17.5); Mean Corpuscular Hemoglobin 32.6 pg (28.0-32.0); Mean Corpuscular Volume 96.2 fL (80.0-100.0); Nucleated Red Blood Cells % 0.3 %
[2025-07-22 10:19] LABS: Calcium 9.7 mg/dL (8.7-10.4)
[2025-07-22 10:20] LABS: Chloride 101 mmol/L (98-107)
[2025-07-22 10:22] LABS: Anion Gap 9 (5-15)
[2025-07-22 10:24] LABS: BUN/Creatinine Ratio 12.1 (10.0-20.0); Blood Urea Nitrogen 12 mg/dL (9-23)
[2025-07-22 10:25] LABS: Carbon Dioxide 25 mmol/L (20-31); Glucose 111 mg/dL (74-106); Potassium 4.0 mmol/L (3.5-5.1); Sodium 135 mmol/L (136-145)
[2025-07-22 11:22] LABS: Urine Protein, UAD Negative (Negative)
[2025-07-22] MEDS: HALOPERIDOL LACTATE 5 MG/ML INJ VIAL ONE (11:42)
[2025-07-22] MEDS: HALOPERIDOL LACTATE 5 MG/ML INJ VIAL IM ONE (11:43)
--- NOTE | 2025-07-22 13:15 | DVH ---
EXAM: CT HEAD WITHOUT CONTRAST INDICATION: ams TECHNIQUE: CT of the head without intravenous contrast. Radiation Dose Information: CT Dose: CTDI volume is 62.62 mGy. Dose-length product is 1155.57 mGy*cm The dose indicators for CT are the volume Computed Tomography (CT) Dose Index (CTDIvol) and the Dose Length Product (DLP), and are measured in units of mGy and mGy-cm, respectively. These indicators are not patient dose, but values generated from the CT scanner acquisition factors. The report includes radiation exposure data for exposures received during this examination. COMPARISON: None FINDINGS: There is no evidence of acute intracranial hemorrhage, extra-axial collection, mass effect, midline shift, herniation or hydrocephalus. The ventricles, sulci and cisterns are age appropriate. The toscano-white differentiation is intact. Patchy periventricular and subcortical white matter hypoattenuation is nonspecific but may be related to small vessel ischemic disease. The visualized paranasal sinuses and mastoid air cells are clear. The surrounding soft tissues and osseous structures are unremarkable. IMPRESSION: 1. No acute intracranial abnormality.
[2025-07-22] MEDS ORDERED: ONDANSETRON HCL 4 MG/2 ML VIAL IV PRN (15:00)
[2025-07-22] MEDS ORDERED: MORPHINE SULFATE INJ 2 MG/ml SYRG IV PRN ×2 (15:00)
[2025-07-22] MEDS ORDERED: NITROGLYCERIN 0.4 MG SL TAB SL PRN (15:00)
[2025-07-22] MEDS ORDERED: ACETAMINOPHEN 325 MG TAB PO PRN (15:00)
[2025-07-22] MEDS ORDERED: DOCUSATE SOD 100 MG CAP PO PRN (15:00)
[2025-07-22] MEDS ORDERED: DEXTROSE (50%) 50ML SYRG IV PRN (16:30)
[2025-07-22] MEDS: LACTATED RINGER'S 1,000 ML IV ONE (16:32)
--- NOTE | 2025-07-22 16:32 | DVHHPRES ---
History of Present Illness Resident Creating Document: BERNARDO ALVARES RESIDENT History of Present Illness Mr. Renee, a 80-year-old male with a history of dementia, atrial fibrillation /Atrial flutter, prior ETOH abuse and hypertension presents to the ED via EMS for altered level of consciousness. 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 Patient recently had a pacemaker placed on June 27, at [place]. Patient complains of frequency of urination with several episodes of urinary incontinence, otherwise denies, pain, nausea, vomiting, fever, sick contact or other unusual changes. On arrival, patient is moderately symptomatic with decreased alertness and confusion; denies prior surgeries. [facility] [place], [facility] historian and son can not recall home medications. But agreed to bring the home medications and further medical history pending. 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 PSHx: history of cholecystectomy distant. Family history: Noncontributory to the admission. Social history: Previous history of heavy ETOH use, former smoker, retired . Lives currently with son, sole caregiver. Dependent for ADLs, denies having any DME at home. Review of Systems Constitutional: No: Fever, Chills, Sweats, Weakness, Malaise, Other Eyes: No: Pain, Vision change, Conjunctivae inflammation, Eyelid inflammation, Other, Redness ENT: No: Ear pain, Ear discharge, Nose pain, Nose discharge, Nose congestion, Mouth pain, Mouth swelling, Throat pain, Throat swelling, Other Respiratory: No: Cough, Dry, Shortness of breath, SOB with excertion, Wheezing, Hemoptysis, Pleuritic Pain, Sputum, Wheezing, Other Cardiovascular: No: Chest Pain, Palpitations, Orthopnea, Paroxysmal Noc. Dyspnea, Edema, Lt Headedness, Other Gastrointestinal: No: Nausea, Vomiting, Abdominal Pain, Diarrhea, Constipation, Melena, Hematochezia, Other Genitourinary: No Dysuria; Frequency, Incontinence; No Hematuria, No Retention, No Other Musculoskeletal: No: other, neck pain, shoulder pain, arm pain, back pain, hand pain, leg pain, foot pain Skin: No: Rash, Lesions, Jaundice, Bruising, Other Neurological: Weakness, Confusion; No: Numbness, Incoordination, Change in s peech, Seizures, Other Allergies: Coded Allergies: NO KNOWN ALLERGIES (Unverified , 03/12/20) Medications Current Medications Medications Dose Ordered Sig/Lizabeth Route Start Time Stop Time Status Last Admin Dose Admin Ondansetron HCl 4 mg Q4HP PRN IV 07/22/25 15:00 Docusate Sodium 100 mg BIDPRN PRN PO 07/22/25 15:00 Acetaminophen 650 mg Q6HP PRN PO 07/22/25 15:00 Morphine Sulfate 2 mg Q4HPRN PRN IV 07/22/25 15:00 Nitroglycerin 0.4 mg Q5MINP PRN SL 07/22/25 15:00 Morphine Sulfate 2 mg Q30M PRN IV 07/22/25 15:00 Ceftriaxone Sodium 50 ml @ 100 mls/hr DAILY IV 07/22/25 15:00 07/22/25 15:40 100 MLS/HR Exam Vital Signs Vital Signs Date Time Temp Pulse Resp B/P (MAP) Pulse Ox O2 Delivery O2 Flow Rate FiO2 07/22/25 12:35 70 12 138/87 (104) 93 07/22/25 11:11 97.9 97.9 07/22/25 09:00 Room Air* 0 21 General Appearance: Alert, Oriented X3 (oriented to self and place can recognize son. ), Cooperative HEENT: Atraumatic, PERRLA, EOMI, Mucous membr. moist/pink Respiratory: Clear to auscultation, Normal air movement Cardiovascular: Normal S1, Normal S2, Other (Paced rhythm, aortic systolic ejection murmur) Abdominal: Normal bowel sounds Extremities: No clubbing, No cyanosis, No edema, Normal pulses, No tenderness/swelling Skin: No rashes (But patient has left shoulder crusted wound, which as per son patient scratches, noninfected well healed.) Neuro: Normal speech, Strength at 5/5 X4 ext (3/5 bilateral lower limbs. 4/5 bilateral upper limbs), Normal tone, Sensation intact, Cranial nerves 3-12 NL, Other (Needs support support for movement.) Psych/Mental Status: Mental status NL, Mood NL Labs/Xrays Labs Test 07/22/25 13:12 07/22/25 10:51 07/22/25 09:53 07/22/25 09:31 Range/Units Troponin I High Sensitivity 15 </=54 ng/L Urine Color Light-yellow Yellow Urine Clarity Clear Clear Urine pH 5.5 5.0-9.0 Urine Specific [place] 1.025 1.001-1.035 Urine Protein Negative Negative Urine Ketones Negative Negative Urine Blood 2+ H Negative /uL Urine Nitrite Negative Negative Urine Bilirubin Negative Negative Urine Urobilinogen Normal Negative mg/dL Urine Leukocyte Esterase Negative Negative /uL Urine RBC 57 0 - 3 /hpf Urine Microscopic WBC 11 H 0-3 /HPF Urine Squamous Epithelial Cells None seen <5 /hpf Urine Bacteria None seen None Seen /hpf Urine Glucose 4+ H Normal mg/dL White Blood Count 7.1 4.4-10.8 10^3/uL Red Blood Count 5.66 4.5-5.90 10^6/uL Hemoglobin 18.5 H 13.5-17.5 g/dL Hematocrit 54.5 H 41.0-53.0 % Mean Corpuscular Volume 96.2 80.0-100.0 fL Mean Corpuscular Hemoglobin 32.6 H 28.0-32.0 pg Mean Corpuscular Hemoglobin Concent 33.9 32.0-36.0 g/dL Red Cell Distribution Width 13.9 11.8-14.3 % Platelet Count 144 140-450 10^3/uL Mean Platelet Volume 8.3 6.9-10.8 fL Neutrophils (%) (Auto) 48.4 37.0-80.0 % Lymphocytes (%) (Auto) 39.9 10.0-50.0 % Monocytes (%) (Auto) 9.6 0.0-12.0 % Eosinophils (%) (Auto) 1.7 0.0-7.0 % Basophils (%) (Auto) 0.4 0.0-2.0 % Neutrophils # (Auto) 3.4 1.6-8.6 10 ^3/uL Lymphocytes # (Auto) 2.8 0.4-5.4 10 ^3/uL Monocytes # (Auto) 0.7 0-1.3 10 ^3/uL Eosinophils # (Auto) 0.1 0-0.8 10 ^3/uL Basophils # (Auto) 0 0-0.2 10 ^3/uL Nucleated Red Blood Cells 0.3 % Sodium Level 135 L 136-145 mmol/L Potassium Level 4.0 3.5-5.1 mmol/L Chloride Level 101 98-107 mmol/L Carbon Dioxide Level 25 20-31 mmol/L Anion Gap 9 5-15 Blood Urea Nitrogen 12 9-23 mg/dL Creatinine 0.99 0.700-1.30 mg/dL Glomerular Filtration Rate Calc 77 >90 mL/min BUN/Creatinine Ratio 12.1 10.0-20.0 Serum Glucose 111 H 74-106 mg/dL Calcium Level 9.7 8.7-10.4 mg/dL B-Type Natriuretic Peptide 39.62 0-100 pg/mL Lactic Acid Level 1.8 0.4-2.0 mmol/L SEPSIS Sepsis Screen Date sepsis recognized/suspect: Jul 22, 2025 Time Sepsis recognized/suspect: 854 Recent Procedure: No On Antibiotic Therapy: No Respiratory Rate >20: No Heart Rate >90: No Temp<36 C (96.8 F) or >38.3 C: No SBP <90 or MAP <65 mmHG: No New Acute Mental Status Change: No Is the patient on CPAP, BIPAP,: No Physician Orders Chest Portable (07/22/25 09:15) Electrocardigram (07/22/25 09:15) Insert [place] Catheter QSHIFT (07/22/25 09:15) Blood Culture (07/22/25 09:15) Electrocardigram (07/22/25 10:15) Electrocardigram (07/22/25 12:15) Head Without Contrast (07/22/25 12:26) Admit (07/22/25 14:47) Allergies (07/22/25 14:47) Code Status (07/22/25 14:47) Ondansetron Hcl (Zofran) (07/22/25 15:00) Docusate Sodium Capsule (Colace Capsule) (07/22/25 15:00) Complete Blood Count (07/23/25 04:00) Comprehensive Metabolic Panel (07/23/25 04:00) Condition: Serious (07/22/25 14:47) Acetaminophen Tablet (Tylenol Tablet) (07/22/25 15:00) Morphine Sulfate Injection (07/22/25 15:00) Nitroglycerin Sublingual (Ntrostat Subli (07/22/25 15:00) Morphine Sulfate Injection (07/22/25 15:00) Oxygen By Nasal Cannula (07/22/25 14:47) Stat Ekg For Chest Pain (07/22/25 14:47) Notify Of Changes From Base (07/22/25 14:47) Cryptanalyst For 24 Hours (07/22/25 14:47) Emergency Dysrhythmia Protocol (07/22/25 14:47) Rhythm Strips Once Every Shift (07/22/25 14:47) Npo (Nothing By Mouth) Diet (07/22/25 Dinner) Strict Aspiration Precautions (07/22/25 14:50) Covid19 Antigen Kiera (07/22/25 ) Rapid Influenza A&B (07/22/25 14:50) Ceftriaxone 1gm/50ml (Rocephin) (07/22/25 15:00) Urine Bacterial Culture (07/22/25 14:53) Lactated Ringer's (07/22/25 15:00) Kidney (07/22/25 16:27) Vital Signs Date Time Temp Pulse Resp B/P (MAP) Pulse Ox O2 Delivery O2 Flow Rate FiO2 07/22/25 12:35 70 12 138/87 (104) 93 07/22/25 11:11 97.9 80 16 160/98 98 97.9 07/22/25 11:02 70 14 151/116 (128) 94 07/22/25 09:00 Room Air* 0 21 07/22/25 09:00 98.7 70 19 132/85 (101) 94 98.7 Laboratory Tests Test 07/22/25 09:31 07/22/25 09:53 Lactic Acid Level 1.8 mmol/L (0.4-2.0) White Blood Count 7.1 10^3/uL (4.4-10.8) Medications Medications Dose Ordered Sig/Lizabeth Route Start Time Stop Time Status Last Admin Dose Admin Ceftriaxone Sodium 50 ml @ 100 mls/hr DAILY IV 07/22/25 15:00 07/22/25 15:40 100 MLS/HR Haloperidol Lactate 10 mg ONCE ONCE IM 07/22/25 11:15 07/22/25 11:16 DC 07/22/25 11:43 10 MG Assessment/Plan Assessment/Plan Assessment and Plan: Present on Admission: #Metabolic versus toxic encephalopathy, presented with altered level of consciousness, CT head negative for hemorrhagic stroke : Aspiration precaution, fall precaution, precautions for delirium. no focal neurological deficits noted, if any change consider TIA, MRI and Neurology follow up. Physical therapy for DME/ fall precautions posture control. #Acute complicated UTI: Urine culture: Blood culture to follow patient lives at home, recent hospitalization, culture to follow up. IV ceftriaxone to continue for now. #Dementia, Progressive, CT evident with brain mass loss: son could not remember home medications, bring the medications reconciled. Start the medications. #atrial fibrillation/ atrial flutter, variable condition: chads Vasc score more than 5. Continue telemetry, check for anticoagulants at home, restart medications, target heart rate at rest 80, at moderate exercise 110 or below. Keep potassium above 4, magnesium above 2, Limited history, check echo, EKG, BNP and troponin to rule out Acute cardiac conditions. Please restart home anticoagulants high-risk of stroke. 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 close monitoring with telemetry. #heart failure with Mildly reduced ejection fraction (HFmrEF): LVEF 40% on 06/18Euvolemic at room air, on the drier helper side. As needed IV Lasix patient is still hypertension and diabetes mellitus. #Surgical history of cholecystectomy #mild aortic sclerosis with gradient 18 mm Hg, systolic murmur prominent otherwise asymptomatic #Dyslipidemia: moderate to high intensity statin to continue. #diabetes mellitus with last HbA1c of 8 around 06/24: Lantus 20 mcg, diabetic diet, SSI with mild sliding scale to keep the BG in-hospital 140- 180 #polycythemia: No known coagulopathy with baseline hemoglobin 17-18, no acute hyper viscosity syndrome noted, IV hydration to continue #Microscopic hematuria: r/o stone or obstruction, renal US, could be due to UTI, iv abx. PUD prophylaxis: protonix 40mg iv daily. DVT prophylaxis: SCD/brisk movement. restart home Barriers to discharge: Medical diagnosis and management in progress. Patient lives with son/family. Need support for ADL. PT and SW consult as needed. PCP: Local PCP, cannot recall name, also follows [facility]. Specialist Relevant To Admission: None at present. [facility] [place]. Case discussed with Dr. Lilly. Code Status: Full Code. Discussion for goals of care and clinical care needed total 35 minutes bedside, discussed with Son, SAMI. Plan discussed with: Patient, Son, Other (Primary team, RN.) My Orders Orders - BERNARDO ALVARES RESIDENT Procedure Category Date Status Time Admit ADMIT 07/22/25 Transmitted 14:47 Allergies ALEX 07/22/25 In Process 14:47 Code Status CODE 07/22/25 Transmitted 14:47 Ondansetron Hcl PHA 07/22/25 In Process (Zofran) 15:00 Docusate Sodium PHA 07/22/25 In Process Capsule (Colace 15:00 Complete Blood Count LAB 07/23/25 Verified 04:00 Comprehensive LAB 07/23/25 Verified Metabolic Panel 04:00 Condition: Serious ALEX 07/22/25 In Process 14:47 Acetaminophen Tablet PHA 07/22/25 In Process (Tylenol Tablet) 15:00 Morphine Sulfate PHA 07/22/25 In Process Injection 15:00 Nitroglycerin PHA 07/22/25 In Process Sublingual (Ntrostat 15:00 Morphine Sulfate PHA 07/22/25 In Process Injection 15:00 Oxygen By Nasal RT 07/22/25 Transmitted Cannula 14:47 Stat Ekg For Chest ALEX 07/22/25 In Process Pain 14:47 Notify Md Of Changes ALEX 07/22/25 In Process From Base 14:47 Cryptanalyst For [facility] 07/22/25 In Process 24 Hours 14:47 Emergency Dysrhythmia ALEX 07/22/25 In Process Protocol 14:47 Rhythm Strips Once ALEX 07/22/25 In Process Every Shift 14:47 Npo (Nothing By DIET 07/22/25 Transmitted Mouth) Diet Dinner Strict Aspiration ALEX 07/22/25 In Process Precautions 14:50 Covid19 Antigen Kiera LAB 07/22/25 Logged Rapid Influenza A&B LAB 07/22/25 Logged 14:50 Ceftriaxone 1gm/50ml PHA 07/22/25 In Process (Rocephin) 15:00 Urine Bacterial MIMI 07/22/25 Logged Culture 14:53 Lactated Ringer's PHA 07/22/25 In Process 15:00 Kidney US 07/22/25 Logged 16:27 Date of Service: Jul 22, 2025 Billing Provider: OBDULIA LILLY MD Common Visit Codes: [id number] INP/OBS CARE (HIGH) Secondary Visit Codes: [id number] CARE PLAN 30 MINUTES BERNARDO ALVARES RESIDENT Jul 22, 2025 16:32
--- NOTE | 2025-07-22 17:44 | DVH ---
US KIDNEY HISTORY: rule out strone, obstruction, pyelonephritis COMPARISON: None TECHNIQUE: Sonographic grayscale and color doppler evaluation of the kidneys and urinary bladder was performed. FINDINGS: RIGHT: 13 cm. Normal cortical echogenicity and normal contour. No hydronephrosis. No focal renal mass lesion or shadowing stone LEFT: 13.5 cm. Normal cortical echogenicity and normal contour. No hydronephrosis. No focal renal mass lesion or shadowing stone BLADDER: The urinary bladder is well distended and appears unremarkable. Right and left ureteral jets are visualized. OTHER: Prostate measures 31 mL indicative of mild prostatomegaly. IMPRESSION: 1. Unremarkable retroperitoneal ultrasound without evidence for hydronephrosis.
[2025-07-22 17:58] LABS: COVID19 ANTIGEN SOFIA FIA NEGATIVE (NEGATIVE)
[2025-07-22] MEDS: ACCU-CHEK COMFORT CURVE STRIP VI SCH (18:14)
[2025-07-22] MEDS: InsuLIN REG 1unit/0.01ml Soln (100units/ml) ONE (18:15)
[2025-07-22] MEDS: InsuLIN REG 1unit/0.01ml Soln (100units/ml) SC SCH (18:17)
[2025-07-22 19:54] VITALS: PULSE 70; RESP 18; O2SAT 97
[2025-07-22] MEDS: INSULIN LANTUS (GLARGINE) 1 /0.01ml (100units/ml) SC SCH (21:10)
[2025-07-22 22:03] VITALS: BP 134/86; PULSE 86; RESP 16; TEMP 97.8; O2SAT 96
[2025-07-22 23:51] VITALS: BP 111/72; PULSE 76; RESP 17; TEMP 98; O2SAT 94
[2025-07-23] VITALS (8 sets, daily range): BP systolic 111–154; BP diastolic 72–98; PULSE 70–86; RESP 17–20; TEMP 97.8–98.9; O2SAT 92–98
[2025-07-23] MEDS: InsuLIN REG 1unit/0.01ml Soln (100units/ml) ONE ×2 (06:36→12:28)
[2025-07-23 07:38] LABS: Hematocrit 51.5 % (41.0-53.0); Hemoglobin 17.4 g/dL (13.5-17.5); Mean Corpuscular Hemoglobin 32.5 pg (28.0-32.0); Mean Corpuscular Volume 96.2 fL (80.0-100.0); Nucleated Red Blood Cells % 0.2 %
[2025-07-23 08:00] LABS: Albumin 4.0 g/dL (3.2-4.8); Alkaline Phosphatase 69 U/L (46-116); Anion Gap 9 (5-15); BUN/Creatinine Ratio 14.1 (10.0-20.0); Blood Urea Nitrogen 14 mg/dL (9-23); Calcium 9.2 mg/dL (8.7-10.4); Carbon Dioxide 24 mmol/L (20-31); Chloride 104 mmol/L (98-107); Potassium 3.9 mmol/L (3.5-5.1); Sodium 137 mmol/L (136-145); Total Protein 7.5 g/dL (5.7-8.2)
[2025-07-23 08:01] LABS: Alanine Aminotransferase 42 U/L (7-40); Bilirubin, Total 0.6 mg/dL (0.2-1.0); Glucose 113 mg/dL (74-106)
[2025-07-23] MEDS ORDERED: FURO20TA3 PO (11:30)
[2025-07-23] MEDS ORDERED: APIX5TAB PO (11:30)
[2025-07-23] MEDS ORDERED: MEMA1TAB3 PO (11:30)
[2025-07-23] MEDS ORDERED: BENZ200C64 PO (11:30)
[2025-07-23] MEDS ORDERED: LISI20TA56 PO (11:30)
[2025-07-23] MEDS ORDERED: EMPA1TAB3 PO (11:30)
[2025-07-23] MEDS ORDERED: DOCU-94 PO (11:30)
[2025-07-23] MEDS ORDERED: ATOR10TA52 PO (11:30)
--- NOTE | 2025-07-23 17:39 | DVHPN2 ---
Subjective Patient's chart is reviewed discussed with the patient and nurse at bedside regarding care plan. Admitted overnight for confusion. Patient has baseline dementia. His head CT renal ultrasound stat chest x-ray did not show any acute pathology. Urinalysis showed microscopic WBC otherwise leukocyte esterase and nitrite are negative. Blood cultures negative for any growth so far. Changes from previous H/P or p: No Changes Eyes: No Pain, No Vision change, No Conjunctivae inflammation, No Eyelid inflammation, No Other, No Redness ENT: No Ear pain, No Ear discharge, No Nose pain, No Nose discharge, No Nose congestion, No Mouth pain, No Mouth swelling, No Throat pain, No Throat swelling, No Other Cardiovascular: No Chest Pain, No Palpitations, No Orthopnea, No Paroxysmal Noc. Dyspnea, No Edema, No Lt Headedness, No Other Respiratory: No Cough, No Dry, No Shortness of breath, No SOB with excertion, No Wheezing, No Hemoptysis, No Pleuritic Pain, No Sputum, No Other Gastrointestinal: No Nausea, No Vomiting, No Abdominal Pain, No Diarrhea, No Constipation, No Melena, No Hematochezia, No Other Genitourinary: No Dysuria; Frequency, Incontinence; No Hematuria, No Retention, No Other Musculoskeletal: No other, No neck pain, No shoulder pain, No arm pain, No back pain, No hand pain, No leg pain, No foot pain Skin: No Rash, No Lesions, No Jaundice, No Bruising, No Other Objective Vitals Vital Signs Date Time Temp Pulse Resp B/P (MAP) Pulse Ox O2 Delivery O2 Flow Rate FiO2 07/23/25 16:36 98.9 86 20 131/79 (96) 95 98.9 07/22/25 23:51 Room Air* 0 21 Intake/Output Intake and Output 07/23/25 07:00 Intake Total 1725 ml Output Total 1200 ml Balance 525 ml Intake Oral 1600 ml IV Total 125 ml Output Urine Total 1200 ml # Voids 7 Exam Currently he is sitting at the edge of the bed. Alert awake knows his name. Able to tell me his son's name. Safety at and and at bedside. HEENT neck supple no JVD pupils equal round react to light. Heart regular rate and rhythm S1-S2. Lungs fair air movement without rales wheezes. Abdomen obese soft nontender positive bowel sounds. Extremities no edema positive pulses. Neurologically alert awake oriented to person. No focal neurological deficits or weaknesses noted. Medications Current Medications Medications Dose Ordered Sig/Lizabeth Route Start Time Stop Time Status Last Admin Dose Admin Ondansetron HCl 4 mg Q4HP PRN IV 07/22/25 15:00 Docusate Sodium 100 mg BIDPRN PRN PO 07/22/25 15:00 Acetaminophen 650 mg Q6HP PRN PO 07/22/25 15:00 Morphine Sulfate 2 mg Q4HPRN PRN IV 07/22/25 15:00 Nitroglycerin 0.4 mg Q5MINP PRN SL 07/22/25 15:00 Morphine Sulfate 2 mg Q30M PRN IV 07/22/25 15:00 Ceftriaxone Sodium 50 ml @ 100 mls/hr DAILY IV 07/22/25 15:00 07/23/25 12:33 100 MLS/HR Diagnostic Test (Pha) 1 strip ACHS 07/22/25 17:00 07/23/25 12:37 1 STRIP Insulin Human Regular ACHS SC 07/22/25 17:00 07/23/25 12:36 4 UNITS Dextrose 50 ml UD PRN IV 07/22/25 16:30 Laboratory Results Laboratory Tests 07/23/25 06:28 Chemistry Test 07/23/25 06:28 Albumin 4.0 g/dL (3.2-4.8) Calcium Level 9.2 mg/dL (8.7-10.4) Total Protein 7.5 g/dL (5.7-8.2) LFT Test 07/23/25 06:28 Alanine Aminotransferase (ALT) 42 U/L (7-40) H Alkaline Phosphatase 69 U/L (46-116) Aspartate Amino Transferase (AST) 32 U/L (13-40) Total Bilirubin 0.6 mg/dL (0.2-1.0) Urinalysis Test 07/22/25 10:51 Urine Color Light-yellow (Yellow) Urine Clarity Clear (Clear) Urine pH 5.5 (5.0-9.0) Urine Specific [place] 1.025 (1.001-1.035) Urine Protein Negative (Negative) Urine Ketones Negative (Negative) Urine Blood 2+ /uL (Negative) H Urine Nitrite Negative (Negative) Urine Bilirubin Negative (Negative) Urine Urobilinogen Normal mg/dL (Negative) Urine Leukocyte Esterase Negative /uL (Negative) Urine RBC 57 /hpf (0 - 3) Urine Microscopic WBC 11 /HPF (0-3) H Urine Squamous Epithelial Cells None seen /hpf (<5) Urine Bacteria None seen /hpf (None Seen) Urine Glucose 4+ mg/dL (Normal) H Microbiology Microbiology Date/Time Source Procedure Growth Status 07/22/25 09:53 Blood Blood Culture - Preliminary NO GROWTH AFTER 24 HOURS OF INCUBATION. Resulted Labs and/or images reviewed: Labs reviewed by me Assessment/Plan Assessment/Plan So far his workup in the hospitalist relatively normal. I will resume his home medications overnight. If he remains stable consider discharge home tomorrow. Discussed with the patient and his nurse at bedside regarding care plan. Plan discussed with: Patient, Other Problem List: (1) Generalized weakness (2) Acute metabolic encephalopathy Date of Service: Jul 23, 2025 Billing Provider: LELA DIAS MD Common Visit Codes: [id number] INP/OBS CARE(MOD) LELA DIAS MD Jul 23, 2025 17:38
[2025-07-23] MEDS: APIXABAN 5 MG TAB PO SCH (22:33)
[2025-07-23] MEDS: ATORVASTATIN 20 MG TAB PO SCH (22:33)
[2025-07-23] MEDS: DOCUSATE SOD 100 MG CAP PO SCH (22:33)
[2025-07-23] MEDS: MEMANTINE HCL 5 MG TAB PO SCH (22:33)
[2025-07-24] VITALS (91 sets, daily range): BP systolic 75–148; BP diastolic 38–111; PULSE 60–123; RESP 12–28; TEMP 98.3–100.6; O2SAT 93–100
[2025-07-24] MEDS: SUCCINYLCHOLINE CHLORIDE 20 MG/ML 10ML VIAL IV ONE ×2 (02:30→02:54)
[2025-07-24] MEDS: ETOMIDATE (2MG/ML) 20ML VIAL IV ONE ×2 (02:30→02:54)
[2025-07-24] MEDS ORDERED: MIDAZOLAM DRIP 100 mg/100mL NS 100 ML IV SCH (02:45)
[2025-07-24] MEDS ORDERED: fentaNYL Drip 2500mCg/250mlNS 250 ML IV SCH (02:45)
[2025-07-24] MEDS: fentaNYL Drip 2500mCg/250mlNS 250 ML IV SCH (02:45)
[2025-07-24] MEDS: MIDAZOLAM DRIP 100 mg/100mL NS 100 ML IV SCH (02:45)
[2025-07-24] MEDS: MIDAZOLAM DRIP 100 mg/100mL NS 100 ML IV ONE (02:54)
--- NOTE | 2025-07-24 03:23 | RESUS ---
CODE ASSIST ASSESSSMENT Initial Information Code Assist Date: Jul 24, 2025 Code Assist Time: :19 Location of Arrest: [facility] Room # 249-B Provider Name Darien CLOUD SECURITY ARCHITECT Time Notified: 02:19 Crash Cart Opened and Supplies: No Situation Staff concerned/worried, speci: SaO2 <90, Non-responsive, RR >28 Situation comment: See below Background Background: Mr. Renee, a 80-year-old male with a history of dementia, atrial fibrillation /Atrial flutter, prior ETOH abuse and hypertension presents to the ED via EMS for altered level of consciousness. 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 Patient recently had a pacemaker placed on June 27, at [place]. Patient complains of frequency of urination with several episodes of urinary incontinence, otherwise denies, pain, nausea, vomiting, fever, sick contact or other unusual changes. On arrival, patient is moderately symptomatic with decreased alertness and confusion; denies prior surgeries. [facility] historian and son can not recall home medications. But agreed to bring the home medications and further medical history pending. Assessment Temperature (Fahrenheit): 98.8 Blood Pressure Systolic: 146 Blood Pressure Diastolic: 83 Respiratory Rate: 43 O2 Sat by Pulse Oximetry: 97 Bedside Blood Glucose: 146 Assessment comment: Patient in respiratory distress, altered responds to painful stimuli, agonally breathing. Patient found saturating in low 60's. Placed on NRB which brought pt to 97%. pt to be intubated Recommendations/Interventions Medications and Responses : Medication Time: :29 Route of Administration: IV Medication Comment: 15mg Etomidate 80mg Succs Heart Rate: 81 EKG Rhythm: Sinus Rhythm Blood Pressure Systolic: 164 Blood Pressure Diastolic: 99 O2 Sat by Pulse Oximetry: 99 Comment Ambu bag Procedures: Accu check, ABG, CXR Portable, CBC, Troponin, Suctioned, Intubated, Bag Mask Other Interventions Intubated by Darien CLOUD SECURITY ARCHITECT, color change noted, breathe sounds, stat cxray ordered. ETT 8 - 24cm at [facility] Outcome Outcome: Transfer to ICU Team Members Team Members Darien ASTUDILLO, Michelle MST project development director, Eugenie ICU project development director, Hong RN, Nader RN, Earle RT, Sherine RT, MARY JO Elder RN Jul 24, 2025 03:23
[2025-07-24 03:28] LABS: Hematocrit 53.8 % (41.0-53.0); Hemoglobin 18.3 g/dL (13.5-17.5); Mean Corpuscular Hemoglobin 32.8 pg (28.0-32.0); Mean Corpuscular Volume 96.7 fL (80.0-100.0); Nucleated Red Blood Cells % 0.1 %
--- NOTE | 2025-07-24 03:31 | DVH ---
CHEST RADIOGRAPH Indication: intubation Technique: Single frontal view of the chest was obtained Comparison: XY CHEST PORTABLE on DOS: 07/22/25, XY CHEST PORTABLE on DOS: 06/18/25 IMPRESSION: Heart is prominent size. There is moderate pulmonary vascular congestion. Dual lead left cardiac device. Enteric tube tip is not well visualized. Endotracheal tube is 4 cm from the de.
[2025-07-24 03:36] LABS: Base Excess -4.6 mmol/L (-2.0-3.0)
[2025-07-24 03:39] LABS: Anion Gap 14 (5-15); Carbon Dioxide 20 mmol/L (20-31); Chloride 102 mmol/L (98-107); Potassium 4.2 mmol/L (3.5-5.1); Sodium 136 mmol/L (136-145)
[2025-07-24 03:40] LABS: Calcium 9.2 mg/dL (8.7-10.4)
[2025-07-24 03:45] LABS: BUN/Creatinine Ratio 11.0 (10.0-20.0); Blood Urea Nitrogen 13 mg/dL (9-23); Magnesium 2.4 mg/dL (1.6-2.6)
[2025-07-24 03:57] LABS: Glucose 173 mg/dL (74-106)
[2025-07-24] MEDS: PHENYLEPHRINE IV 250 ML IV SCH (04:45)
[2025-07-24] MEDS: LISINOPRIL 20 MG TAB PO SCH (08:56)
[2025-07-24 10:17] LABS: Hepatitis B Surface Antigen Negative (Negative)
[2025-07-24 10:43] LABS: Hepatitis C Antibody Negative (Negative)
[2025-07-24] MEDS: FUROSEMIDE 20 MG TAB PO SCH (11:15)
[2025-07-24] MEDS: EMPAGLIFLOZIN 10 MG TAB PO SCH (11:51)
--- NOTE | 2025-07-24 12:12 | DVHPN2 ---
Subjective Patient intubated and sedated Reviewed: Care Plan, H&P, Labs, Medications Changes from previous H/P or p: No Changes General: Per HPI Eyes: No Pain, No Vision change, No Conjunctivae inflammation, No Eyelid inflammation, No Other, No Redness ENT: No Ear pain, No Ear discharge, No Nose pain, No Nose discharge, No Nose congestion, No Mouth pain, No Mouth swelling, No Throat pain, No Throat swelling, No Other Cardiovascular: No Chest Pain, No Palpitations, No Orthopnea, No Paroxysmal Noc. Dyspnea, No Edema, No Lt Headedness, No Other Respiratory: No Cough, No Dry, No Shortness of breath, No SOB with excertion, No Wheezing, No Hemoptysis, No Pleuritic Pain, No Sputum, No Other Gastrointestinal: No Nausea, No Vomiting, No Abdominal Pain, No Diarrhea, No Constipation, No Melena, No Hematochezia, No Other Genitourinary: Frequency, Incontinence Musculoskeletal: No other, No neck pain, No shoulder pain, No arm pain, No back pain, No hand pain, No leg pain, No foot pain Skin: No Rash, No Lesions, No Jaundice, No Bruising, No Other Objective Vitals Vital Signs Date Time Temp Pulse Resp B/P (MAP) Pulse Ox O2 Delivery O2 Flow Rate FiO2 07/24/25 11:37 116/81 07/24/25 11:29 75 14 98 30 07/24/25 06:00 Mechanical Ventilator+ 07/24/25 05:00 99.0 210.2 07/23/25 20:00 0 Intake/Output Intake and Output 07/24/25 07:00 Intake Total 1758.5 ml Output Total 1058 ml Balance 700.5 ml Intake Oral 1720 ml IV Total 38.5 ml Output Urine Total 1058 ml General Appearance: mild distress HEENT: Atraumatic, PERRLA Cardiovascular: Normal S1, Normal S2 Abdomen: Normal bowel sounds, Soft, No tenderness, No hepatospenomegaly Genitourinary: No Apparent Abnormalities ([place] catheter) Musculoskeletal: Other (Unable to assess) Skin: Dry, Intact Psych/Mental Status: Other (Unable to assess) Medications Current Medications Medications Dose Ordered Sig/Lizabeth Route Start Time Stop Time Status Last Admin Dose Admin Ondansetron HCl 4 mg Q4HP PRN IV 07/22/25 15:00 Docusate Sodium 100 mg BIDPRN PRN PO 07/22/25 15:00 Acetaminophen 650 mg Q6HP PRN PO 07/22/25 15:00 Morphine Sulfate 2 mg Q4HPRN PRN IV 07/22/25 15:00 Nitroglycerin 0.4 mg Q5MINP PRN SL 07/22/25 15:00 Morphine Sulfate 2 mg Q30M PRN IV 07/22/25 15:00 Ceftriaxone Sodium 50 ml @ 100 mls/hr DAILY IV 07/22/25 15:00 07/24/25 11:14 100 MLS/HR Diagnostic Test (Pha) 1 strip ACHS 07/22/25 17:00 07/24/25 11:45 1 STRIP Insulin Human Regular ACHS SC 07/22/25 17:00 07/24/25 11:46 2 UNITS Dextrose 50 ml UD PRN IV 07/22/25 16:30 Acetaminophen 500 mg Q6HP PRN PO 07/23/25 17:45 Apixaban 5 mg BID PO 07/23/25 22:00 07/24/25 11:15 5 MG Docusate Sodium 100 mg BID PO 07/23/25 22:00 07/23/25 22:33 100 MG Furosemide 20 mg DAILY PO 07/24/25 10:00 07/24/25 11:15 20 MG Lisinopril 10 mg DAILY PO 07/24/25 10:00 Memantine 5 mg HS PO 07/23/25 22:00 07/23/25 22:33 5 MG Atorvastatin Calcium 10 mg HS PO 07/23/25 22:00 07/23/25 22:33 10 MG Empaglifozin 25 mg DAILY PO 07/24/25 10:00 07/24/25 11:51 25 MG Midazolam HCl 100 ml @ 1 mls/hr Q24H IV 07/24/25 02:45 07/24/25 11:37 7 MLS/HR Fentanyl Citrate 250 ml @ 2.5 mls/hr Q24H IV 07/24/25 02:45 07/24/25 02:45 2.5 MLS/HR Midazolam HCl 100 ml @ 1 mls/hr Q24H IV 07/24/25 02:45 Cancel Fentanyl Citrate 250 ml @ 2.5 mls/hr Q24H IV 07/24/25 02:45 Cancel Phenylephrine HCl 250 ml @ 30 mls/hr Q8H20M IV 07/24/25 04:45 Laboratory Results Laboratory Tests 07/24/25 03:20 Chemistry Test 07/24/25 03:20 Calcium Level 9.2 mg/dL (8.7-10.4) Magnesium Level 2.4 mg/dL (1.6-2.6) Phosphorus Level 4.0 mg/dL (2.4-5.1) Coagulation Test 07/24/25 03:20 D-Dimer, Quantitative 0.87 mg/L FEU (0.0-0.49) H Urinalysis Test 07/22/25 10:51 Urine Color Light-yellow (Yellow) Urine Clarity Clear (Clear) Urine pH 5.5 (5.0-9.0) Urine Specific [place] 1.025 (1.001-1.035) Urine Protein Negative (Negative) Urine Ketones Negative (Negative) Urine Blood 2+ /uL (Negative) H Urine Nitrite Negative (Negative) Urine Bilirubin Negative (Negative) Urine Urobilinogen Normal mg/dL (Negative) Urine Leukocyte Esterase Negative /uL (Negative) Urine RBC 57 /hpf (0 - 3) Urine Microscopic WBC 11 /HPF (0-3) H Urine Squamous Epithelial Cells None seen /hpf (<5) Urine Bacteria None seen /hpf (None Seen) Urine Glucose 4+ mg/dL (Normal) H Blood Gas Results Test 07/24/25 03:00 Arterial Blood pH 7.350 (7.350-7.450) FiO2 % 100.0 Microbiology Microbiology Date/Time Source Procedure Growth Status 07/23/25 04:26 Voided Urine Urine Culture - Preliminary Resulted 07/22/25 09:53 Blood Blood Culture - Preliminary NO GROWTH AFTER 48 HOURS OF INCUBATION. Resulted Labs and/or images reviewed: Labs reviewed by me, Image(s) reviewed by me Assessment/Plan Assessment/Plan Impression: -acute metabolic encephalopathy -acute hypoxic respiratory failure -questionable acute seizure activity with postictal state -acute on chronic diastolic heart failure -atrial flutter with controlled rate -recent placement of dual-chamber pacemaker -? History of ETOH -acute kidney injury, vasomotor nephropathy -obesity -primary hypertension -NSTEMI, probably type 2 Plan: -neurology consultation -UDS -check ammonia level, TSH, vitamin-D, B12, B6 level -cardiology consultation -hold THADDEUS inhibitor given bu in BUN and creatinine -continue anticoagulation with Eliquis -continue current ventilator settings -repeat labs, chest x-ray, ABG in a.m. -social service consultation for transfer to [facility] Critical care time spent with patient discussing and formulating plan of care: 40 minutes. This does not include time spent performing procedures. This medical document was created using an electronic medical record system with Recognition PRO dictation system. Although this document has been carefully reviewed, there may still be some phonetic and typographical errors. These areas are purely typographical due to imperfections of the software programs, and do not reflect any compromise in the patient's medical care. Plan discussed with: Patient, Other (RN) My Orders Orders - FLORY OSMAN NP Procedure Category Date Status Time * Neurology Consult CONS 07/24/25 Transmitted 11:59 * Cardiology Consult CONS 07/24/25 Transmitted 11:59 Date of Service: Jul 24, 2025 Billing Provider: FLORY OSMAN NP Common Visit Codes: 14392-[id number] CARE 30-74 MIN FLORY OSMAN NP Jul 24, 2025 12:12
--- NOTE | 2025-07-24 14:10 | DVHINCON2 ---
Date Seen: Jul 24, 2025 Referring Physician HERMINIA Sweeney Reason for Consultation Elevated troponins, ECG changes History of Present Illness This is a 80-year-old male who presented to the emergency room via EMS with a chief complaint of ALOC. Per son at bedside, the patient with a history of dementia became more altered than his baseline prompting him to call 911. During hospital admission the patient was found in respiratory distress, only responsive to painful stimuli, with agonal breathing and an associated O2 saturation level in the 60s% for which he was emergently intubated on 07/24/2025. He is currently endotracheally intubated with 30% FiO2, chemically sedated, and off vasopressors. The son denies a previous history of coronary artery disease or cardiac catheterizations/coronary angiograms. Post respiratory arrest 12 lead electrocardiogram revealed dynamic EKG changes including an atrial flutter rhythm at a controlled rate with ST depression to lateral leads. Significant medical history includes heart failure with preserved ejection fraction, unspecified atrial fibrillation/atrial flutter on Eliquis therapy, a recent dual-chamber pacemaker implantation (Pyreg) on 06/27/2025 at [facility], hypertension, dyslipidemia, history of ETOH abuse, former smoker, dementia, and obesity. Past Medical History Past medical history reviewed. No other significant than mentioned above. Past Surgical History Dual-chamber pacemaker implantation, 06/27/2025 at [facility] Cholecystectomy Family History: Colon cancer G8 MOTHER (UNKNOWN CANCER) G8 FATHER (UNKNOWN CANCER) Family History Unable to retrieve family history at this time. Social History Former smoker/alcoholic. Per son, there is no current use of illicit drugs, tobacco, or alcohol. Allergies: Coded Allergies: NO KNOWN ALLERGIES (Unverified , 03/12/20) Home Meds Reported Medications Docusate Sodium (Colace) 100 Mg Cap, 1 CAP PO BID, #30 CAP 07/23/25 Lisinopril (Lisinopril) 20 Mg Tab, 0.5 TAB PO DAILY, #30 TAB 5 Refills 07/23/25 Atorvastatin Calcium (ATORVASTATIN CALCIUM) 10 Mg Tab, 1 TAB PO DAILY, #30 TAB 5 Refills 07/23/25 Memantine Hydrochloride (Memantine HCl) 5 Mg Tab, 5 MG PO HS, TAB 07/23/25 Benzonatate (Benzonatate) 200 Mg Cap, 1 CAP PO TID, #30 CAP 07/23/25 Furosemide (Furosemide) 20 Mg Tab, 1 TAB PO DAILY, #90 TAB 1 Refill 07/23/25 Apixaban Base (ELIQUIS) 5 Mg Tab, 5 MG PO BID, TAB 07/23/25 Empagliflozin (Jardiance) 25 Mg Tab, 25 MG PO DAILY, TAB 07/23/25 Acetaminophen (Tylenol Extra Strength) 500 Mg Tab, 500 MG PO Q6HP PRN for PAIN, TAB 03/12/20 Home Meds Home medications reviewed. Current Medications Current Medications Medications (Trade) Dose Ordered Sig/Lizabeth Route PRN Reason Start Time Stop Time Status Last Admin Acetaminophen (Tylenol Tablet Or Capsule) 500 mg Q6HP PRN PO PAIN 07/23/25 17:45 Apixaban (Eliquis) 5 mg BID PO 07/23/25 22:00 07/24/25 11:15 Docusate Sodium (Colace Capsule) 100 mg BID PO 07/23/25 22:00 07/23/25 22:33 Furosemide (Lasix Tablet) 20 mg DAILY PO 07/24/25 10:00 07/24/25 11:15 Lisinopril (Zestril Tablet) 10 mg DAILY PO 07/24/25 10:00 07/24/25 12:06 DC Memantine (Namenda Tablet) 5 mg HS PO 07/23/25 22:00 07/23/25 22:33 Atorvastatin Calcium (Lipitor) 10 mg HS PO 07/23/25 22:00 07/23/25 22:33 Empaglifozin (Jardiance) 25 mg DAILY PO 07/24/25 10:00 07/24/25 11:51 Midazolam HCl 100 ml @ 1 mls/hr Q24H IV 07/24/25 02:45 07/24/25 11:37 Fentanyl Citrate 250 ml @ 2.5 mls/hr Q24H IV 07/24/25 02:45 07/24/25 02:45 Midazolam HCl 100 ml @ 1 mls/hr Q24H IV 07/24/25 02:45 Cancel Fentanyl Citrate 250 ml @ 2.5 mls/hr Q24H IV 07/24/25 02:45 Cancel Phenylephrine HCl 250 ml @ 30 mls/hr Q8H20M IV 07/24/25 04:45 Review of Systems Constitutional: No symptom reported Ears, Nose, & Throat: No symptom reported Eyes: No symptom reported Neurological: ALOC Pulmonary/Respiratory: Respiratory distress, agonal breathing Cardiovascular: No symptom reported Gastrointestinal: No symptom reported Genitourinary: No symptom reported Musculoskeletal: No symptom reported Skin: No symptom reported Psychiatric: No symptom reported Endocrine: No symptom reported Hemotologic/Lymphatic: No symptom reported Vital Signs Vital Signs Date Time Temp Pulse Resp B/P (MAP) Pulse Ox O2 Delivery O2 Flow Rate FiO2 07/24/25 13:08 77 19 103/65 (78) 97 30 07/24/25 08:00 Mechanical Ventilator+ 0 07/24/25 05:00 99.0 210.2 Physical Exam General Appearance: Chemically sedated. Endotracheally intubated with FiO2 30% PEEP 5.0. Withdrawn Head Exam: Normal inspection Neck Exam: Normal inspection. Normal alignment Pulmonary/Respiratory: Crackles to bilateral breath sounds Cardiovascular/Chest: Irregularly irregular rate and rhythm. Atrial flutter with ST depression to lateral leads, controlled rate Peripheral Pulses: 2+ Radial (R). 2+ Radial (L). 2+ Pedal (R). 2+ Pedal (L) Abdominal Exam: Normal bowel sounds. Soft Ankle Exam: Negative ankle edema Lower extremities: Negative lower extremity edema Neuro/Mental Status: Intact cough reflex. Reactive bilateral pupils. Thoughts/Psych: Unable to assess at this time Appearance: Withdrawn Skin Exam: Normal inspection. Normal color. Warm. Dry Labs/Diagnostic Data Labs Test 07/24/25 11:44 07/24/25 08:30 07/24/25 03:20 07/24/25 03:00 Range/Units POC Glucose 149 H 70-106 mg/dl Troponin I High Sensitivity 107 *H </=54 ng/L White Blood Count 8.8 4.4-10.8 10^3/uL Red Blood Count 5.57 4.5-5.90 10^6/uL Hemoglobin 18.3 H 13.5-17.5 g/dL Hematocrit 53.8 H 41.0-53.0 % Mean Corpuscular Volume 96.7 80.0-100.0 fL Mean Corpuscular Hemoglobin 32.8 H 28.0-32.0 pg Mean Corpuscular Hemoglobin Concent 34.0 32.0-36.0 g/dL Red Cell Distribution Width 13.9 11.8-14.3 % Platelet Count 155 140-450 10^3/uL Mean Platelet Volume 8.6 6.9-10.8 fL Neutrophils (%) (Auto) 53.8 37.0-80.0 % Lymphocytes (%) (Auto) 35.6 10.0-50.0 % Monocytes (%) (Auto) 9.1 0.0-12.0 % Eosinophils (%) (Auto) 1.0 0.0-7.0 % Basophils (%) (Auto) 0.5 0.0-2.0 % Neutrophils # (Auto) 4.8 1.6-8.6 10 ^3/uL Lymphocytes # (Auto) 3.1 0.4-5.4 10 ^3/uL Monocytes # (Auto) 0.8 0-1.3 10 ^3/uL Eosinophils # (Auto) 0.1 0-0.8 10 ^3/uL Basophils # (Auto) 0 0-0.2 10 ^3/uL Nucleated Red Blood Cells 0.1 % D-Dimer, Quantitative 0.87 H 0.0-0.49 mg/L FEU Sodium Level 136 136-145 mmol/L Potassium Level 4.2 3.5-5.1 mmol/L Chloride Level 102 98-107 mmol/L Carbon Dioxide Level 20 20-31 mmol/L Anion Gap 14 5-15 Blood Urea Nitrogen 13 9-23 mg/dL Creatinine 1.18 0.700-1.30 mg/dL Glomerular Filtration Rate Calc 63 >90 mL/min BUN/Creatinine Ratio 11.0 10.0-20.0 Serum Glucose 173 H 74-106 mg/dL Calcium Level 9.2 8.7-10.4 mg/dL Phosphorus Level 4.0 2.4-5.1 mg/dL Magnesium Level 2.4 1.6-2.6 mg/dL Blood Gas Specimen Type Arterial Blood Gas Sample Site Left radial Blood Gas Patient Temperature 37.0 Arterial Blood Date Drawn [id number] Arterial Blood pH 7.350 7.350-7.450 Arterial Blood Partial Pressure CO2 37.6 35.0-48.0 mmHg Arterial Blood Partial Pressure O2 320.9 *H 83.0-108.0 mmHg Arterial Blood HCO3 20.3 L 21.0-28.0 mmol/L Arterial Blood Oxygen Saturation 99.5 H 94.0-98.0 % Arterial Blood Base Excess -4.6 L -2.0-3.0 mmol/L Arterial Blood Oxyhemoglobin 98.3 H 94.0-98.0 % Arterial Blood Carboxyhemoglobin 0.3 L 0.5-1.5 % Arterial Blood Methemoglobin 0.9 0.0-1.5 % Arterial Blood Deoxyhemoglobin 0.5 0.0-5.0 % Brennan Test Modified Blood Gas Total Hemoglobin 19.80 *H 13.5-17.5 g/dL Blood Gas Set Respiration Rate 14.0 Blood Gas Modality Vent - ac FiO2 % 100.0 Blood Gas Tidal Volume 550.0 Blood Gas PEEP or CPAP 5.0 Blood Gas Critical Value Read Back Yes Blood Gas Notified Whom Herminia landin Blood Gas Notified Time [id number] Blood Gas Notified By Rt demarcus colon Test 07/23/25 06:28 07/22/25 17:07 07/22/25 10:51 07/22/25 09:53 Range/Units Total Bilirubin 0.6 0.2-1.0 mg/dL Aspartate Amino Transferase (AST) 32 13-40 U/L Alanine Aminotransferase (ALT) 42 H 7-40 U/L Alkaline Phosphatase 69 46-116 U/L Total Protein 7.5 5.7-8.2 g/dL Albumin 4.0 3.2-4.8 g/dL Hepatitis B Surface Antigen Negative Negative Hepatitis C Antibody Negative Negative Influenza Type A Antigen Negative Negative Influenza Type B Antigen Negative Negative SARS-CoV-2 Antigen (Rapid) Negative NEGATIVE Urine Color Light-yellow Yellow Urine Clarity Clear Clear Urine pH 5.5 5.0-9.0 Urine Specific [place] 1.025 1.001-1.035 Urine Protein Negative Negative Urine Ketones Negative Negative Urine Blood 2+ H Negative /uL Urine Nitrite Negative Negative Urine Bilirubin Negative Negative Urine Urobilinogen Normal Negative mg/dL Urine Leukocyte Esterase Negative Negative /uL Urine RBC 57 0 - 3 /hpf Urine Microscopic WBC 11 H 0-3 /HPF Urine Squamous Epithelial Cells None seen <5 /hpf Urine Bacteria None seen None Seen /hpf Urine Glucose 4+ H Normal mg/dL B-Type Natriuretic Peptide 39.62 0-100 pg/mL Test 07/22/25 09:31 Range/Units Lactic Acid Level 1.8 0.4-2.0 mmol/L Microbiology Date/Time Source Procedure Growth Status 07/23/25 04:26 Voided Urine Urine Culture - Preliminary Resulted 07/22/25 09:53 Blood Blood Culture - Preliminary NO GROWTH AFTER 48 HOURS OF INCUBATION. Resulted Assessment Non ST-elevation myocardial infarction, questionable type 1 Atrial fibrillation/atrial flutter, controlled rate (on Eliquis therapy at home) [place] decompensated HFrEF, NYHA Class III Presence of dual-chamber pacemaker ([employer]) Acute hypoxic respiratory failure Diabetes mellitus, newly diagnosed Hypertension Dyslipidemia Former smoker/alcoholic Obesity * Transthoracic echocardiogram revealed LVEF 40% with global hypokinesis and RV function moderately diminished * 12 lead electrocardiogram revealed an atrial flutter rhythm at a controlled rate with lateral ST-depression. These changes are new compared to ECGs from previous admission on 05/2025 * Troponin level 107 ng/L. BNP 39 pg/mL Plan/Recommendation (Dr. Bernabe) The patient presents with newly diagnosed HFrEF, global hypokinesis, dynamic 12 lead electrocardiogram changes, and multiple risk factors for coronary artery disease. Tentatively scheduled for a cardiac catheterization and coronary angiogram with Dr. Bernabe on 07/26/2025. All risks and benefits of the procedure were discussed with haritha Meyer at bedside who agrees to proceed with intervention. All questions answered. In the meantime, initiate single- antiplatelet therapy, lipid lowering agent, and therapeutic Lovenox. Transition to Eliquis therapy postprocedure ([id number] Score 5 points, HAS-BLED Score 2 points). Initiate full GDMT for HFrEF when hemodynamics permits. Complete pacemaker interrogation. Further orders per clinical course. Thank you for allowing us to participate in this patient's care. Please call if you have any questions or concerns. Critical care time 50 minutes. This medical document was created using an electronic medical record system with voice recognition software and computerized dictation system. Although this document has been carefully reviewed, there might still be some phonetic and typographical errors. Occasional wrong-word or ``sound-alike substitutions may have occurred due to the inherent limitations of voice recognition software. These areas are purely typographical due to imperfections of the software programs and do not reflect any compromise in the patient's medical care. Please read the chart carefully and recognize, using context, where these substitutions have occurred. Plan discussed with: Son, Other NYHA Physical activity limitations: Class3(Marked) ordinary (activity causes symtoms) Date of Service: Jul 24, 2025 Billing Provider: MAURICIO KEY Cardiology Common Codes: 59111-[id number] CARE 30-74 MIN MAURICIO KEY Jul 24, 2025 14:10
[2025-07-24 14:40] LABS: Triglycerides 100 mg/dL (< 150)
[2025-07-24 14:42] LABS: Cholesterol 103 mg/dL (< 200); HDL Cholesterol 47 mg/dL (40-59)
--- NOTE | 2025-07-24 16:24 | CONS ---
Pharmacy Clinical Information: From Heart Failure Fallout Report on CQM Application, Víctor Venancio Williamson is an 80-year-old male with PMH of dementia, afib,/aflutter, prior ETOH abuse, HTN, and HFmrEF His home medications for heart failure include empagliflozin and atorvastatin His inpatient medications include empagliflozin and atorvastatin BBs, ACEI/ARB/ARNI, MRA are not recommended at this time due to the patient having hypotension. MIKIE ROY [facility] Jul 24, 2025 16:24
--- NOTE | 2025-07-24 16:55 | DVHINCON2 ---
Date Seen: Jul 24, 2025 Referring Physician HERMINIA Sweeney Reason for Consultation Elevated troponins, ECG changes History of Present Illness This is a 80-year-old male with a PMH of heart failure with preserved ejection fraction, unspecified atrial fibrillation/atrial flutter on Eliquis therapy, a recent dual-chamber pacemaker implantation ([employer]) on 06/27/2025 at [facility], hypertension, dyslipidemia, history of ETOH abuse, former smoker, dementia, and obesity who presented to the emergency room via EMS due to ALOC. Per son at bedside, the patient with a history of dementia became more altered than his baseline prompting him to call 911. During hospital admission the patient was found in respiratory distress, only responsive to painful stimuli, with agonal breathing and an associated O2 saturation level in the 60s% for which he was emergently intubated on 07/24/2025. He is currently endotracheally intubated with 30% FiO2, chemically sedated, and off vasopressors. The son denies a previous history of coronary artery disease or cardiac catheterizations/coronary angiograms. Post respiratory arrest 12 lead electrocardiogram revealed dynamic EKG changes including an atrial flutter rhythm at a controlled rate with ST depression to lateral leads. Therefore cardiology is asked to assess this patient. Past Medical History Past medical history reviewed. No other significant than mentioned above. Past Surgical History Dual-chamber pacemaker implantation, 06/27/2025 at [facility] Cholecystectomy Family History: Colon cancer G8 MOTHER (UNKNOWN CANCER) G8 FATHER (UNKNOWN CANCER) Allergies: Coded Allergies: NO KNOWN ALLERGIES (Unverified , 03/12/20) Home Meds Reported Medications Docusate Sodium (Colace) 100 Mg Cap, 1 CAP PO BID, #30 CAP 07/23/25 Lisinopril (Lisinopril) 20 Mg Tab, 0.5 TAB PO DAILY, #30 TAB 5 Refills 07/23/25 Atorvastatin Calcium (ATORVASTATIN CALCIUM) 10 Mg Tab, 1 TAB PO DAILY, #30 TAB 5 Refills 07/23/25 Memantine Hydrochloride (Memantine HCl) 5 Mg Tab, 5 MG PO HS, TAB 07/23/25 Benzonatate (Benzonatate) 200 Mg Cap, 1 CAP PO TID, #30 CAP 07/23/25 Furosemide (Furosemide) 20 Mg Tab, 1 TAB PO DAILY, #90 TAB 1 Refill 07/23/25 Apixaban Base (ELIQUIS) 5 Mg Tab, 5 MG PO BID, TAB 07/23/25 Empagliflozin (Jardiance) 25 Mg Tab, 25 MG PO DAILY, TAB 07/23/25 Acetaminophen (Tylenol Extra Strength) 500 Mg Tab, 500 MG PO Q6HP PRN for PAIN, TAB 03/12/20 Current Medications Current Medications Medications (Trade) Dose Ordered Sig/Lizabeth Route PRN Reason Start Time Stop Time Status Last Admin Acetaminophen (Tylenol Tablet Or Capsule) 500 mg Q6HP PRN PO PAIN 07/23/25 17:45 Apixaban (Eliquis) 5 mg BID PO 07/23/25 22:00 07/24/25 14:13 DC 07/24/25 11:15 Docusate Sodium (Colace Capsule) 100 mg BID PO 07/23/25 22:00 07/23/25 22:33 Furosemide (Lasix Tablet) 20 mg DAILY PO 07/24/25 10:00 07/24/25 11:15 Lisinopril (Zestril Tablet) 10 mg DAILY PO 07/24/25 10:00 07/24/25 12:06 DC Memantine (Namenda Tablet) 5 mg HS PO 07/23/25 22:00 07/23/25 22:33 Atorvastatin Calcium (Lipitor) 10 mg HS PO 07/23/25 22:00 07/24/25 16:30 DC 07/23/25 22:33 Empaglifozin (Jardiance) 25 mg DAILY PO 07/24/25 10:00 07/24/25 11:51 Midazolam HCl 100 ml @ 1 mls/hr Q24H IV 07/24/25 02:45 07/24/25 11:37 Fentanyl Citrate 250 ml @ 2.5 mls/hr Q24H IV 07/24/25 02:45 07/24/25 02:45 Midazolam HCl 100 ml @ 1 mls/hr Q24H IV 07/24/25 02:45 Cancel Fentanyl Citrate 250 ml @ 2.5 mls/hr Q24H IV 07/24/25 02:45 Cancel Phenylephrine HCl 250 ml @ 30 mls/hr Q8H20M IV 07/24/25 04:45 Enoxaparin Sodium (Lovenox) 120 mg Q12HR SC 07/24/25 22:00 Atorvastatin Calcium (Lipitor) 40 mg HS PO 07/24/25 22:00 Aspirin 81 mg DAILY PO 07/25/25 10:00 Review of Systems Ears, Nose, & Throat: No symptom reported Eyes: No symptom reported Neurological: ALOC Pulmonary/Respiratory: Respiratory distress, agonal breathing Cardiovascular: No symptom reported Gastrointestinal: No symptom reported Genitourinary: No symptom reported Musculoskeletal: No symptom reported Skin: No symptom reported Psychiatric: No symptom reported Endocrine: No symptom reported Hemotologic/Lymphatic: No symptom reported Vital Signs Vital Signs Date Time Temp Pulse Resp B/P (MAP) Pulse Ox O2 Delivery O2 Flow Rate FiO2 07/24/25 16:00 100.0 72 14 97/66 (76) 98 212.0 07/24/25 16:00 Mechanical Ventilator+ 60 60 07/24/25 08:00 0 Physical Exam GENERAL: Ill appearing, intubated and sedated on ventilator. and oriented x 3. No acute distress. EYES: PERRL, EOMI. Anicteric. HENT: Moist mucous membranes. LUNGS: Crackles to bilateral breath sounds. CARDIOVASCULAR: Irregular rate and rhythm. ABDOMEN: Soft, non-tender and non-distended. EXTREMITIES: No edema. SKIN: Warm, dry. Labs/Diagnostic Data Labs Test 07/24/25 14:47 07/24/25 11:44 07/24/25 08:30 07/24/25 03:20 Range/Units Ammonia 20 11-32 umol/L Vitamin B12 Level 1658 H 211-911 pg/mL POC Glucose 149 H 70-106 mg/dl Troponin I High Sensitivity 107 *H </=54 ng/L Triglycerides Level 100 < 150 mg/dL Cholesterol Level 103 < 200 mg/dL LDL Cholesterol 42 < 100 mg/dL HDL Cholesterol 47 40-59 mg/dL Thyroid Stimulating Hormone (TSH) 1.34 0.55-4.78 uIU/mL White Blood Count 8.8 4.4-10.8 10^3/uL Red Blood Count 5.57 4.5-5.90 10^6/uL Hemoglobin 18.3 H 13.5-17.5 g/dL Hematocrit 53.8 H 41.0-53.0 % Mean Corpuscular Volume 96.7 80.0-100.0 fL Mean Corpuscular Hemoglobin 32.8 H 28.0-32.0 pg Mean Corpuscular Hemoglobin Concent 34.0 32.0-36.0 g/dL Red Cell Distribution Width 13.9 11.8-14.3 % Platelet Count 155 140-450 10^3/uL Mean Platelet Volume 8.6 6.9-10.8 fL Neutrophils (%) (Auto) 53.8 37.0-80.0 % Lymphocytes (%) (Auto) 35.6 10.0-50.0 % Monocytes (%) (Auto) 9.1 0.0-12.0 % Eosinophils (%) (Auto) 1.0 0.0-7.0 % Basophils (%) (Auto) 0.5 0.0-2.0 % Neutrophils # (Auto) 4.8 1.6-8.6 10 ^3/uL Lymphocytes # (Auto) 3.1 0.4-5.4 10 ^3/uL Monocytes # (Auto) 0.8 0-1.3 10 ^3/uL Eosinophils # (Auto) 0.1 0-0.8 10 ^3/uL Basophils # (Auto) 0 0-0.2 10 ^3/uL Nucleated Red Blood Cells 0.1 % D-Dimer, Quantitative 0.87 H 0.0-0.49 mg/L FEU Sodium Level 136 136-145 mmol/L Potassium Level 4.2 3.5-5.1 mmol/L Chloride Level 102 98-107 mmol/L Carbon Dioxide Level 20 20-31 mmol/L Anion Gap 14 5-15 Blood Urea Nitrogen 13 9-23 mg/dL Creatinine 1.18 0.700-1.30 mg/dL Glomerular Filtration Rate Calc 63 >90 mL/min BUN/Creatinine Ratio 11.0 10.0-20.0 Serum Glucose 173 H 74-106 mg/dL Hemoglobin A1c 7.8 H <5.7 % A1C Calcium Level 9.2 8.7-10.4 mg/dL Phosphorus Level 4.0 2.4-5.1 mg/dL Magnesium Level 2.4 1.6-2.6 mg/dL Test 07/24/25 03:00 07/23/25 06:28 07/22/25 17:07 07/22/25 10:51 Range/Units Blood Gas Specimen Type Arterial Blood Gas Sample Site Left radial Blood Gas Patient Temperature 37.0 Arterial Blood Date Drawn [id number] Arterial Blood pH 7.350 7.350-7.450 Arterial Blood Partial Pressure CO2 37.6 35.0-48.0 mmHg Arterial Blood Partial Pressure O2 320.9 *H 83.0-108.0 mmHg Arterial Blood HCO3 20.3 L 21.0-28.0 mmol/L Arterial Blood Oxygen Saturation 99.5 H 94.0-98.0 % Arterial Blood Base Excess -4.6 L -2.0-3.0 mmol/L Arterial Blood Oxyhemoglobin 98.3 H 94.0-98.0 % Arterial Blood Carboxyhemoglobin 0.3 L 0.5-1.5 % Arterial Blood Methemoglobin 0.9 0.0-1.5 % Arterial Blood Deoxyhemoglobin 0.5 0.0-5.0 % Brennan Test Modified Blood Gas Total Hemoglobin 19.80 *H 13.5-17.5 g/dL Blood Gas Set Respiration Rate 14.0 Blood Gas Modality Vent - ac FiO2 % 100.0 Blood Gas Tidal Volume 550.0 Blood Gas PEEP or CPAP 5.0 Blood Gas Critical Value Read Back Yes Blood Gas Notified Whom Residential Finish Carpenter cassius landin Blood Gas Notified Time [id number] Blood Gas Notified By Rt demarcus colon Total Bilirubin 0.6 0.2-1.0 mg/dL Aspartate Amino Transferase (AST) 32 13-40 U/L Alanine Aminotransferase (ALT) 42 H 7-40 U/L Alkaline Phosphatase 69 46-116 U/L Total Protein 7.5 5.7-8.2 g/dL Albumin 4.0 3.2-4.8 g/dL Hepatitis B Surface Antigen Negative Negative Hepatitis C Antibody Negative Negative Influenza Type A Antigen Negative Negative Influenza Type B Antigen Negative Negative SARS-CoV-2 Antigen (Rapid) Negative NEGATIVE Urine Color Light-yellow Yellow Urine Clarity Clear Clear Urine pH 5.5 5.0-9.0 Urine Specific [place] 1.025 1.001-1.035 Urine Protein Negative Negative Urine Ketones Negative Negative Urine Blood 2+ H Negative /uL Urine Nitrite Negative Negative Urine Bilirubin Negative Negative Urine Urobilinogen Normal Negative mg/dL Urine Leukocyte Esterase Negative Negative /uL Urine RBC 57 0 - 3 /hpf Urine Microscopic WBC 11 H 0-3 /HPF Urine Squamous Epithelial Cells None seen <5 /hpf Urine Bacteria None seen None Seen /hpf Urine Glucose 4+ H Normal mg/dL Test 11/22/25 09:53 07/22/25 09:31 Range/Units B-Type Natriuretic Peptide 39.62 0-100 pg/mL Lactic Acid Level 1.8 0.4-2.0 mmol/L Microbiology Date/Time Source Procedure Growth Status 07/24/25 03:00 Nose MRSA Screen - Final Methicillin Resistant S.aureus Complete 07/23/25 04:26 Voided Urine Urine Culture - Preliminary Resulted 07/22/25 09:53 Blood Blood Culture - Preliminary NO GROWTH AFTER 48 HOURS OF INCUBATION. Resulted Assessment Non ST-elevation myocardial infarction, questionable type 1. Atrial fibrillation/atrial flutter, controlled rate (on Eliquis therapy at home). [place] decompensated HFrEF, NYHA Class III. Presence of dual-chamber pacemaker ([employer]tr[employer]). Acute hypoxic respiratory failure. Diabetes mellitus, newly diagnosed. Hypertension. Dyslipidemia. Former smoker/alcoholic. Obesity. Plan/Recommendation I agree with your ongoing assessment and care of plan. Patient has been seen by Reyna Loyd NP on my behalf. We have discussed the plan with the patient. Transthoracic echocardiogram revealed LVEF 40% with global hypokinesis and RV function moderately diminished. 12 lead electrocardiogram revealed an atrial flutter rhythm at a controlled rate with lateral ST-depression. These changes are new compared to ECGs from previous admission on 05/2025. Troponin level 107 ng/L. BNP 39 pg/mL. The patient presents with newly diagnosed HFrEF, global hypokinesis, dynamic 12 lead electrocardiogram changes, and multiple risk factors for coronary artery disease. Tentatively scheduled for a cardiac catheterization and coronary angiogram on 07/26/2025. All risks and benefits of the procedure were discussed with haritha Meyer at bedside who agrees to proceed with intervention. All questions answered. In the meantime, initiate single-antiplatelet therapy, lipid lowering agent, and therapeutic Lovenox. Transition to Eliquis therapy postprocedure ([id number] Score 5 points, HAS- BLED Score 2 points). Initiate full GDMT for HFrEF when hemodynamics permits. Complete pacemaker interrogation. Further orders per clinical course. Additional plan as per the hospital course. Plan discussed with: Other NYHA Physical activity limitations: Class3(Marked) ordinary Date of Service: Jul 24, 2025 Billing Provider: ANUPAMA JACOBO MD Cardiology Common Codes: [id number] INP/OBS CARE (High), [id number] CARE 30-74 MIN, [id number] CARE-EACH +30MIN ANUPAMA JACOBO MD Jul 24, 2025 16:55
[2025-07-24] MEDS: ACETAMINOPHEN 500 MG TAB or CAP PO PRN (18:38)
[2025-07-24] MEDS: ENOXAPARIN SOD 120 MG/0.8 ML SYRINGE SC SCH (21:43)
[2025-07-24] MEDS: ATORVASTATIN 20 MG TAB PO SCH (21:44)
[2025-07-25] VITALS (113 sets, daily range): BP systolic 62–117; BP diastolic 34–75; PULSE 70–96; RESP 12–18; TEMP 98–102; O2SAT 92–100
[2025-07-25 03:37] LABS: Hemoglobin 18.3 g/dL (13.5-17.5); Mean Corpuscular Volume 97.1 fL (80.0-100.0)
[2025-07-25 03:39] LABS: Hematocrit 53.9 % (41.0-53.0); Mean Corpuscular Hemoglobin 33.1 pg (28.0-32.0); Nucleated Red Blood Cells % 0.3 %
[2025-07-25 03:57] LABS: Albumin 4.2 g/dL (3.2-4.8); Alkaline Phosphatase 68 U/L (46-116); Anion Gap 10 (5-15); BUN/Creatinine Ratio 11.8 (10.0-20.0); Blood Urea Nitrogen 17 mg/dL (9-23); Calcium 9.5 mg/dL (8.7-10.4); Carbon Dioxide 28 mmol/L (20-31); Chloride 101 mmol/L (98-107); Potassium 4.1 mmol/L (3.5-5.1); Sodium 139 mmol/L (136-145); Total Protein 7.9 g/dL (5.7-8.2)
[2025-07-25 03:58] LABS: Bilirubin, Total 0.8 mg/dL (0.2-1.0)
[2025-07-25 03:59] LABS: Alanine Aminotransferase 42 U/L (7-40); Glucose 117 mg/dL (74-106)
--- NOTE | 2025-07-25 07:11 | DVH ---
CHEST RADIOGRAPH Indication: Pt intubated Technique: Single frontal view of the chest was obtained COMPARISON: XY CHEST XRAY 1 VIEW on DOS: 07/24/25, XY CHEST PORTABLE on DOS: 07/22/25, XY CHEST PORTABLE on DOS: 06/18/25 FINDINGS: Lines and Tubes: Endotracheal tube, enteric catheter and left chest pacemaker in satisfactory position. Lungs: Increased interstitial prominence. This may represent pulmonary vascular congestion and/or viral pneumonia. Pleura: No effusion. No pneumothorax. Cardiomediastinal contours: Cardiomegaly. Bones: Unremarkable IMPRESSION: Lines and tubes in satisfactory position. Increased interstitial prominence. This may represent pulmonary vascular congestion and/or viral pneumonia.
--- NOTE | 2025-07-25 09:03 | MEDREC ---
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
[2025-07-25] MEDS: PANTOPRAZOLE 40 MG/10 ML VIAL INJ IV SCH (09:54)
[2025-07-25] MEDS: FUROSEMIDE 20 MG/2 ML VIAL IV SCH (09:55)
[2025-07-25] MEDS: IBUPROFEN 100MG/5ML ORAL SUSP 100 MG/5 ML UD GT ONE (09:56)
[2025-07-25] MEDS ORDERED: AZITHROMYCIN 500MG/250ML 250 ML IV SCH (10:00)
[2025-07-25 10:14] LABS: Base Excess -4.6 mmol/L (-2.0-3.0)
[2025-07-25] MEDS: MUPIROCIN 2% OINT 15gm or 22gm FOR MRSA NARES EACHNOSTRI SCH (10:18)
--- NOTE | 2025-07-25 10:38 | DVHPN2 ---
Subjective Patient intubated and sedated Reviewed: Care Plan, H&P, Labs, Medications Changes from previous H/P or p: No Changes General: Per HPI Eyes: No Pain, No Vision change, No Conjunctivae inflammation, No Eyelid inflammation, No Other, No Redness ENT: No Ear pain, No Ear discharge, No Nose pain, No Nose discharge, No Nose congestion, No Mouth pain, No Mouth swelling, No Throat pain, No Throat swelling, No Other Cardiovascular: No Chest Pain, No Palpitations, No Orthopnea, No Paroxysmal Noc. Dyspnea, No Edema, No Lt Headedness, No Other Respiratory: No Cough, No Dry, No Shortness of breath, No SOB with excertion, No Wheezing, No Hemoptysis, No Pleuritic Pain, No Sputum, No Other Gastrointestinal: No Nausea, No Vomiting, No Abdominal Pain, No Diarrhea, No Constipation, No Melena, No Hematochezia, No Other Genitourinary: Frequency, Incontinence Musculoskeletal: No other, No neck pain, No shoulder pain, No arm pain, No back pain, No hand pain, No leg pain, No foot pain Skin: No Rash, No Lesions, No Jaundice, No Bruising, No Other Objective Vitals Vital Signs Date Time Temp Pulse Resp B/P (MAP) Pulse Ox O2 Delivery O2 Flow Rate FiO2 07/25/25 09:56 102.0 07/25/25 09:55 102/57 07/25/25 09:55 86 14 97 30 07/25/25 06:00 Mechanical Ventilator+ 07/24/25 08:00 0 Intake/Output Intake and Output 07/25/25 07:00 Intake Total 565.0 ml Output Total 1300 ml Balance -735.0 ml Intake Oral 90 ml IV Total 475.0 ml Output Urine Total 1300 ml General Appearance: mild distress HEENT: Atraumatic, PERRLA Cardiovascular: Normal S1, Normal S2 Abdomen: Normal bowel sounds, Soft, No tenderness, No hepatospenomegaly Genitourinary: No Apparent Abnormalities ([place] catheter) Musculoskeletal: Other (Unable to assess) Skin: Dry, Intact Psych/Mental Status: Other (Unable to assess) Medications Current Medications Medications Dose Ordered Sig/Lizabeth Route Start Time Stop Time Status Last Admin Dose Admin Ondansetron HCl 4 mg Q4HP PRN IV 07/22/25 15:00 Nitroglycerin 0.4 mg Q5MINP PRN SL 07/22/25 15:00 Ceftriaxone Sodium 50 ml @ 100 mls/hr DAILY IV 07/22/25 15:00 07/25/25 10:03 100 MLS/HR Diagnostic Test (Pha) 1 strip ACHS 07/22/25 17:00 07/25/25 07:00 1 STRIP Insulin Human Regular ACHS SC 07/22/25 17:00 07/24/25 11:46 2 UNITS Dextrose 50 ml UD PRN IV 07/22/25 16:30 Acetaminophen 500 mg Q6HP PRN PO 07/23/25 17:45 07/25/25 01:52 500 MG Docusate Sodium 100 mg BID PO 07/23/25 22:00 07/23/25 22:33 100 MG Memantine 5 mg HS PO 07/23/25 22:00 07/24/25 21:45 5 MG Empaglifozin 25 mg DAILY PO 07/24/25 10:00 07/25/25 09:57 25 MG Midazolam HCl 100 ml @ 1 mls/hr Q24H IV 07/24/25 02:45 07/25/25 01:52 7 MLS/HR Fentanyl Citrate 250 ml @ 2.5 mls/hr Q24H IV 07/24/25 02:45 07/25/25 01:52 12.5 MLS/HR Midazolam HCl 100 ml @ 1 mls/hr Q24H IV 07/24/25 02:45 Cancel Fentanyl Citrate 250 ml @ 2.5 mls/hr Q24H IV 07/24/25 02:45 Cancel Phenylephrine HCl 250 ml @ 30 mls/hr Q8H20M IV 07/24/25 04:45 Enoxaparin Sodium 120 mg Q12HR SC 07/24/25 22:00 07/25/25 09:56 120 MG Atorvastatin Calcium 40 mg HS PO 07/24/25 22:00 07/24/25 21:44 40 MG Aspirin 81 mg DAILY PO 07/25/25 10:00 07/25/25 10:03 81 MG Enteral Nutritional Formula 1,000 ml 30ML/HR GT 07/25/25 09:30 Furosemide 20 mg DAILY IV 07/25/25 10:00 07/25/25 09:55 20 MG Azithromycin 250 ml @ 125 mls/hr DAILY IV 07/25/25 10:00 Hold Pantoprazole Sodium 40 mg DAILY IV 07/25/25 10:00 07/25/25 09:54 40 MG Mupirocin 1 applic BID EACHNOSTRI 07/25/25 10:00 07/30/25 09:59 07/25/25 10:18 1 APPLIC Laboratory Results Laboratory Tests 07/25/25 03:05 Chemistry Test 07/25/25 03:05 Albumin 4.2 g/dL (3.2-4.8) Calcium Level 9.5 mg/dL (8.7-10.4) Total Protein 7.9 g/dL (5.7-8.2) Cardiac Markers Test 07/25/25 03:05 B-Type Natriuretic Peptide 13.17 pg/mL (0-100) LFT Test 07/25/25 03:05 Alanine Aminotransferase (ALT) 42 U/L (7-40) H Alkaline Phosphatase 68 U/L (46-116) Aspartate Amino Transferase (AST) 45 U/L (13-40) H Total Bilirubin 0.8 mg/dL (0.2-1.0) Urinalysis Test 07/22/25 10:51 Urine Color Light-yellow (Yellow) Urine Clarity Clear (Clear) Urine pH 5.5 (5.0-9.0) Urine Specific [place] 1.025 (1.001-1.035) Urine Protein Negative (Negative) Urine Ketones Negative (Negative) Urine Blood 2+ /uL (Negative) H Urine Nitrite Negative (Negative) Urine Bilirubin Negative (Negative) Urine Urobilinogen Normal mg/dL (Negative) Urine Leukocyte Esterase Negative /uL (Negative) Urine RBC 57 /hpf (0 - 3) Urine Microscopic WBC 11 /HPF (0-3) H Urine Squamous Epithelial Cells None seen /hpf (<5) Urine Bacteria None seen /hpf (None Seen) Urine Glucose 4+ mg/dL (Normal) H Blood Gas Results Test 07/25/25 10:00 Arterial Blood pH 7.305 (7.350-7.450) FiO2 % 30.0 Microbiology Microbiology Date/Time Source Procedure Growth Status 07/24/25 03:26 Trachea Gram Stain - Final Resulted 07/24/25 03:26 Trachea Respiratory Culture - Preliminary Resulted 07/23/25 04:26 Voided Urine Urine Culture - Final Complete 07/22/25 09:53 Blood Blood Culture - Preliminary NO GROWTH AFTER 72 HOURS OF INCUBATION. Resulted Labs and/or images reviewed: Labs reviewed by me, Image(s) reviewed by me Assessment/Plan Assessment/Plan Impression: -acute metabolic encephalopathy -acute hypoxic respiratory failure -questionable acute seizure activity with postictal state -acute on chronic diastolic heart failure -atrial flutter with controlled rate -recent placement of dual-chamber pacemaker -? History of ETOH -acute kidney injury, vasomotor nephropathy -obesity -primary hypertension -NSTEMI, probably type 2 Plan: Events: Patient febrile, with mild bump in white blood cell count. -continue Rocephin, and azithromycin -neurology consultation pending Cardiology consultation: Plans for left heart catheterization tomorrow -start tube feeding with free water -antipyretic -continue anticoagulation with Eliquis -continue current ventilator settings -repeat labs, chest x-ray, ABG in a.m. -social service consultation for transfer to [facility] Critical care time spent with patient discussing and formulating plan of care: 40 minutes. This does not include time spent performing procedures. This medical document was created using an electronic medical record system with [employer] dictation system. Although this document has been carefully reviewed, there may still be some phonetic and typographical errors. These areas are purely typographical due to imperfections of the software programs, and do not reflect any compromise in the patient's medical care. Plan discussed with: Patient, Other (RN) My Orders Orders - FLORY OSMAN [employer]ER Procedure Category Date Status Time * Neurology Consult CONS 07/24/25 Transmitted 11:59 * Cardiology Consult CONS 07/24/25 Transmitted 11:59 Vitamin D 25-Hydroxy LAB 07/24/25 In Process D2 + D3 12:06 Drug Screen LAB 07/24/25 Logged 12:06 Chest Portable XY 07/25/25 Resulted 04:00 Isolation Order ORDERS 07/25/25 Transmitted 04:31 Abg W/ Co-Ox RT 07/25/25 Logged 06:00 Nutritional PHA 07/25/25 In Process Supplements (Glucerna 09:30 Furosemide Injection PHA 07/25/25 In Process (Lasix Injection) 10:00 Erythrocyte LAB 07/25/25 In Process Sedimentation Rate 09:19 C-Reactive Protein LAB 07/25/25 In Process 09:19 Azithromycin PHA 07/25/25 In Process 500mg/250ml 10:00 Pantoprazole PHA 07/25/25 In Process (Protonix) 10:00 Mupirocin 2% Oint PHA 07/25/25 In Process Mrsa Nares (Bactroban 10:00 Basic Metabolic Panel LAB 07/26/25 Verified 04:00 Chest Portable XY 07/26/25 Logged 04:00 Abg W/ Co-Ox RT 07/26/25 Logged 04:00 Complete Blood Count LAB 07/26/25 Verified 04:00 Free Water PHA 07/25/25 Logged 12:00 Troponin-I Hs LAB 07/25/25 Transmitted 10:31 Date of Service: Jul 25, 2025 Billing Provider: FLORY OSMAN NP Common Visit Codes: [id number] CARE 30-74 MIN FLORY OSMAN NP Jul 25, 2025 10:38
[2025-07-25] MEDS: NOREPINEPHRINE 8 MG/250ML KIT 250 ML IV ONE (10:47)
[2025-07-25] MEDS: NOREPINEPHRINE 8 MG/250ML KIT 250 ML IV SCH (10:50)
--- NOTE | 2025-07-25 10:59 | ECG ---
[facility] Test Date: 2025-07-24 Test Time: 09:28:12 Pat Name: RICKEY WALTON Department: Room: 0261 A Gender: M Training Manager: brad : [id number] Requested By: JULEE HUBER Order Number: [id number] Reading MD: Axel Graham Measurements Intervals [place] Rate: 72 P: 0 CA: 71 QRS: -42 QRSD: 114 T: 1 QT: 430 QTc: 471 Interpretive Statements Ventricular-paced complexes No further rhythm analysis attempted due to paced rhythm Left anterior fascicular block Abnormal R-wave progression, late transition Left ventricular hypertrophy ST elevation, consider lateral injury Baseline wander in lead(s) V4 Electronically Signed On 07-26-2025 17:37:35 PST by Axel Graham Please click the below link to view image of tracing.
--- NOTE | 2025-07-25 11:03 | DVHPN2 ---
Consult Progress Note Date Seen: Jul 25, 2025 Subjective Other Systems: No overnight cardiac events. Reported pyrexia with cooling measures at this time Objective vital signs Vital Sign Date Time Temp Pulse Resp B/P (MAP) Pulse Ox O2 Delivery O2 Flow Rate FiO2 07/25/25 09:56 102.0 07/25/25 09:55 102/57 07/25/25 09:55 86 14 97 30 07/25/25 06:00 Mechanical Ventilator+ 07/24/25 08:00 0 Total Intake and Output 07/24/25 07/24/25 07/25/25 15:00 23:00 07:00 Intake Total 183.5 ml 211.5 ml 170.0 ml Output Total 250 ml 700 ml 350 ml Balance -66.5 ml -488.5 ml -180.0 ml medications Current Medications Medications Dose Ordered Sig/Lizabeth Route Start Time Stop Time Status Last Admin Dose Admin Ondansetron HCl 4 mg Q4HP PRN IV 07/22/25 15:00 Nitroglycerin 0.4 mg Q5MINP PRN SL 07/22/25 15:00 Ceftriaxone Sodium 50 ml @ 100 mls/hr DAILY IV 07/22/25 15:00 07/25/25 10:03 100 MLS/HR Diagnostic Test (Pha) 1 strip ACHS 07/22/25 17:00 07/25/25 07:00 1 STRIP Insulin Human Regular ACHS SC 07/22/25 17:00 07/24/25 11:46 2 UNITS Dextrose 50 ml UD PRN IV 07/22/25 16:30 Acetaminophen 500 mg Q6HP PRN PO 07/23/25 17:45 07/25/25 01:52 500 MG Docusate Sodium 100 mg BID PO 07/23/25 22:00 07/23/25 22:33 100 MG Memantine 5 mg HS PO 07/23/25 22:00 07/24/25 21:45 5 MG Empaglifozin 25 mg DAILY PO 07/24/25 10:00 07/25/25 09:57 25 MG Midazolam HCl 100 ml @ 1 mls/hr Q24H IV 07/24/25 02:45 07/25/25 01:52 7 MLS/HR Fentanyl Citrate 250 ml @ 2.5 mls/hr Q24H IV 07/24/25 02:45 07/25/25 01:52 12.5 MLS/HR Midazolam HCl 100 ml @ 1 mls/hr Q24H IV 07/24/25 02:45 Cancel Fentanyl Citrate 250 ml @ 2.5 mls/hr Q24H IV 07/24/25 02:45 Cancel Phenylephrine HCl 250 ml @ 30 mls/hr Q8H20M IV 07/24/25 04:45 Enoxaparin Sodium 120 mg Q12HR SC 07/24/25 22:00 07/25/25 09:56 120 MG Atorvastatin Calcium 40 mg HS PO 07/24/25 22:00 07/24/25 21:44 40 MG Aspirin 81 mg DAILY PO 07/25/25 10:00 07/25/25 10:03 81 MG Enteral Nutritional Formula 1,000 ml 30ML/HR GT 07/25/25 09:30 Furosemide 20 mg DAILY IV 07/25/25 10:00 07/25/25 09:55 20 MG Azithromycin 250 ml @ 125 mls/hr DAILY IV 07/25/25 10:00 Hold Pantoprazole Sodium 40 mg DAILY IV 07/25/25 10:00 07/25/25 09:54 40 MG Mupirocin 1 applic BID EACHNOSTRI 07/25/25 10:00 07/30/25 09:59 07/25/25 10:18 1 APPLIC Purified Water 100 ml Q6HR GT 07/25/25 12:00 UNV Examination: GENERAL:Abnormal, LUNGS:Abnormal (Endotracheally intubated 30% FiO2), CVS:Abnormal (Transitioned into a NSR. MAP at 44 mmHg), NEURO:Abnormal (Chemically sedated) laboratory and microbiology Laboratory Tests 07/25/25 03:05 Test 07/25/25 03:05 Range/Units Serum Glucose 117 H 74-106 mg/dL Problem List/Assessment/Plan Problem List/Assessment/Plan Non ST-elevation myocardial infarction, questionable type 1 Paroxysmal atrial fibrillation/atrial flutter, now NSR (on Eliquis therapy at home) [place] decompensated HFrEF, NYHA Class III Presence of dual-chamber pacemaker ([employer]) Acute hypoxic respiratory failure Diabetes mellitus, newly diagnosed Hypertension Dyslipidemia Former smoker/alcoholic Obesity * Transthoracic echocardiogram revealed LVEF 40% with global hypokinesis and RV function moderately diminished * 12 lead electrocardiogram revealed an atrial flutter rhythm at a controlled rate with lateral ST-depression. These changes are new compared to ECGs from previous admission on 05/2025 * Troponin level 107 ng/L. BNP 39 pg/mL Plan/Recommendation (Dr. Bernabe) The patient presents with newly diagnosed HFrEF, global hypokinesis, dynamic 12 lead electrocardiogram changes, and multiple risk factors for coronary artery disease. Recommended for a cardiac catheterization and coronary angiogram on 07/26/2025 for which haritha Meyer had agreed. In the meantime, initiate vasopressor and continue single-antiplatelet therapy, lipid lowering agent, and therapeutic Lovenox (hold day of procedure). Rhythm has transitioned into a sinus rhythm, initiate amiodarone therapy. Transition to Eliquis therapy post- procedure ([id number] Score 5 points, HAS-BLED Score 2 points). Initiate full GDMT for HFrEF when hemodynamics permits. Pacemaker interrogation pending at this time. Further orders per clinical course. Thank you for allowing us to participate in this patient's care. Please call if you have any questions or concerns. Critical care time: 30 minutes. This medical document was created using an electronic medical record system with voice recognition software and computerized dictation system. Although this document has been carefully reviewed, there might still be some phonetic and typographical errors. Occasional wrong-word or ``sound-alike substitutions may have occurred due to the inherent limitations of voice recognition software. These areas are purely typographical due to imperfections of the software programs and do not reflect any compromise in the patient's medical care. Please read the chart carefully and recognize, using context, where these substitutions have occurred. Plan discussed with: Other Date of Service: Jul 25, 2025 Billing Provider: MAURICIO KEY Cardiology Common Codes: 85984-KODPYRMP CARE 30-74 MIN MAURICIO KEY Jul 25, 2025 11:03
[2025-07-25] MEDS: FREE WATER GT SCH (11:35)
[2025-07-25] MEDS: AMIODARONE HCL 200 MG TAB GT ONE (11:55)
[2025-07-25 14:24] LABS: INR 1.17 (0.9-1.15); Partial Thromboplastin Time 34.7 SEC (24.5-34.5); Prothrombin Time 12.2 sec (9.3-11.8)
[2025-07-25] MEDS: Glucerna 1.2 Cal 1Liter BOTTLE GT SCH (15:27)
--- NOTE | 2025-07-25 17:29 | DVHNC2 ---
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: Other (Santo Osman NP) Indication: Hypotension, CVP monitoring, Inability to obtain IV Room prepared for procedure: Yes Metal Buffer performed hand hygien: Yes Maximal sterile barrier precau: Mask/Eye shield, Sterile gown, Cap, Sterlie gloves, Large sterlie drape Skin Preparation: Chlorhexidine gluconate, Alcohol Skin preparation completely dr: Yes Insertion site: Right, Internal jugular Central line catheter type: [id number] dialysis Number of lumens: 3 Central line exchanged over a: No Antiseptic ointment applied to: No Post Assessment: Chest X-Ray, Proper placement, No Pneumothorax Informed consent obtained: Yes Risks/benefits/alt described: Yes Notes Estimated blood loss: 5 mL Ultrasound guidance use Date of Service: Jul 25, 2025 Billing Provider: FLORY OSMAN NP Common Visit Codes: PROCEDURE ONLY Procedure Codes: 81999-[id number] NON-TUNNEL CV CATH, 71190-HW GUIDE VASCULAR ACCESS FLORY OSMAN NP Jul 25, 2025 17:29
--- NOTE | 2025-07-25 18:11 | DVH ---
CHEST RADIOGRAPH Indication: Central Line Placement Technique: Single frontal view of the chest was obtained Comparison: XY CHEST PORTABLE on DOS: 07/25/25, XY CHEST XRAY 1 VIEW on DOS: 07/24/25, XY CHEST PORTABLE on DOS: 07/22/25 FINDINGS: Lines and Tubes: Endotracheal tube is 3.2 cm above the de. Right internal jugular catheter in place in superior vena cava above the right atrium. Pacemaker in place pulse generator over Left chest. Enteric tube below the left diaphragm tip is not visualized this most likely STOMACH Lungs: No focal consolidation. Pleura: No effusion. No pneumothorax. Cardiomediastinal contours: Unremarkable Bones: No acute osseous abnormality. IMPRESSION: 1. Right internal jugular catheter in place in the superior vena cava above the right atrium. 2. Enteric tube below the left diaphragm most likely in the stomach with the tip is not on this radiograph. 3. Endotracheal tube in place 3.2 cm above the de. 4. Pacemaker in place 5. Prominent interstitial markings are noted diffusely throughout both lung macdonald. Findings may represent congestive failure or chronic disease correlate with clinical setting.
[2025-07-25] MEDS: AMIODARONE HCL 200 MG TAB GT SCH (21:50)
--- NOTE | 2025-07-25 23:57 | DVHPN2 ---
Consult Progress Note Date Seen: Jul 25, 2025 Subjective Other Systems: Patient was seen and evaluated in follow up in the ICU. No overnight cardiac events. Patient is intubated and sedated on ventilator. 30% FiO2. Reported pyrexia with cooling measures at this time. WBC 11.4, TROP 657. Chest x-ray shows increased interstitial prominence. Objective vital signs Vital Sign Date Time Temp Pulse Resp B/P (MAP) Pulse Ox O2 Delivery O2 Flow Rate FiO2 07/25/25 12:45 99.9 70 14 100/53 (69) 98 211.8 07/25/25 12:00 30 07/25/25 10:00 Mechanical Ventilator+ 07/24/25 08:00 0 Total Intake and Output 07/24/25 07/24/25 07/25/25 15:00 23:00 07:00 Intake Total 183.5 ml 211.5 ml 170.0 ml Output Total 250 ml 700 ml 350 ml Balance -66.5 ml -488.5 ml -180.0 ml medications Current Medications Medications Dose Ordered Sig/Lizabeth Route Start Time Stop Time Status Last Admin Dose Admin Ondansetron HCl 4 mg Q4HP PRN IV 07/22/25 15:00 Nitroglycerin 0.4 mg Q5MINP PRN SL 07/22/25 15:00 Ceftriaxone Sodium 50 ml @ 100 mls/hr DAILY IV 07/22/25 15:00 07/25/25 10:03 100 MLS/HR Diagnostic Test (Pha) 1 strip ACHS 07/22/25 17:00 07/25/25 11:38 1 STRIP Insulin Human Regular ACHS SC 07/22/25 17:00 07/25/25 11:44 3 UNITS Dextrose 50 ml UD PRN IV 07/22/25 16:30 Acetaminophen 500 mg Q6HP PRN PO 07/23/25 17:45 07/25/25 01:52 500 MG Docusate Sodium 100 mg BID PO 07/23/25 22:00 07/23/25 22:33 100 MG Memantine 5 mg HS PO 07/23/25 22:00 07/24/25 21:45 5 MG Empaglifozin 25 mg DAILY PO 07/24/25 10:00 07/25/25 09:57 25 MG Midazolam HCl 100 ml @ 1 mls/hr Q24H IV 07/24/25 02:45 07/25/25 01:52 7 MLS/HR Fentanyl Citrate 250 ml @ 2.5 mls/hr Q24H IV 07/24/25 02:45 07/25/25 01:52 12.5 MLS/HR Midazolam HCl 100 ml @ 1 mls/hr Q24H IV 07/24/25 02:45 Cancel Fentanyl Citrate 250 ml @ 2.5 mls/hr Q24H IV 07/24/25 02:45 Cancel Phenylephrine HCl 250 ml @ 30 mls/hr Q8H20M IV 07/24/25 04:45 Enoxaparin Sodium 120 mg Q12HR SC 07/24/25 22:00 07/25/25 09:56 120 MG Atorvastatin Calcium 40 mg HS PO 07/24/25 22:00 07/24/25 21:44 40 MG Aspirin 81 mg DAILY PO 07/25/25 10:00 07/25/25 10:03 81 MG Enteral Nutritional Formula 1,000 ml 30ML/HR GT 07/25/25 09:30 Furosemide 20 mg DAILY IV 07/25/25 10:00 07/25/25 09:55 20 MG Azithromycin 250 ml @ 125 mls/hr DAILY IV 07/25/25 10:00 Hold Pantoprazole Sodium 40 mg DAILY IV 07/25/25 10:00 07/25/25 09:54 40 MG Mupirocin 1 applic BID EACHNOSTRI 07/25/25 10:00 07/30/25 09:59 07/25/25 10:18 1 APPLIC Purified Water 100 ml Q6HR GT 07/25/25 12:00 07/25/25 11:35 100 ML Norepinephrine Bitartrate 250 ml @ 3.75 mls/hr Q24H IV 07/25/25 10:45 07/25/25 10:50 3.75 MLS/HR Amiodarone HCl 200 mg Q12HR GT 07/25/25 22:00 Examination: GENERAL:Abnormal, HEENT:Abnormal, LUNGS:Abnormal (Endotracheally intubated 30% FiO2), CVS:Abnormal (Transitioned into a NSR. MAP at 44 mmHg), NEURO:Abnormal laboratory and microbiology Laboratory Tests 07/25/25 03:05 Test 07/25/25 03:05 Range/Units Serum Glucose 117 H 74-106 mg/dL Problem List/Assessment/Plan Problem List/Assessment/Plan Problem list Non ST-elevation myocardial infarction, questionable type 1. Paroxysmal atrial fibrillation/atrial flutter, now NSR (on Eliquis therapy at home). [place] decompensated HFrEF, NYHA Class III. Presence of dual-chamber pacemaker ([employer]). Acute hypoxic respiratory failure. Diabetes mellitus, newly diagnosed. Hypertension. Dyslipidemia. Former smoker/alcoholic. Obesity. Plan/Recommendation Continued all current supportive medical care. Patient has been seen by Reyna Loyd NP on my behalf. We have discussed the plan with the patient. Transthoracic echocardiogram revealed LVEF 40% with global hypokinesis and RV function moderately diminished. 12 lead electrocardiogram revealed an atrial flutter rhythm at a controlled rate with lateral ST-depression. These changes are new compared to ECGs from previous admission on 05/2025. Troponin level 107 ng/L. BNP 39 pg/mL. The patient presents with newly diagnosed HFrEF, global hypokinesis, dynamic 12 lead electrocardiogram changes, and multiple risk factors for coronary artery disease. Recommended for a cardiac catheterization and coronary angiogram on 07/26/2025 for which haritha Mitch had agreed. In the meantime, initiate vasopressor and continue single-antiplatelet therapy, lipid lowering agent, and therapeutic Lovenox (hold day of procedure). Rhythm has transitioned into a sinus rhythm, initiate amiodarone therapy. Transition to Eliquis therapy post-procedure ([id number] Score 5 points, HAS- BLED Score 2 points). Initiate full GDMT for HFrEF when hemodynamics permits. Pacemaker interrogation pending at this time. Further orders per clinical course. Additional plan as per the hospital course. Plan discussed with: Other Date of Service: Jul 25, 2025 Billing Provider: ANUPAMA JACOBO MD Cardiology Common Codes: [id number] HOSP CARE(High, [id number] CARE 30-74 MIN ANUPAMA JACOBO MD Jul 25, 2025 13:57
[2025-07-26] VITALS (100 sets, daily range): BP systolic 85–122; BP diastolic 29–81; PULSE 70–101; RESP 12–21; TEMP 97.9–100.4; O2SAT 96–100
[2025-07-26 04:11] LABS: Chloride 102 mmol/L (98-107); Hematocrit 51.8 % (41.0-53.0); Hemoglobin 17.5 g/dL (13.5-17.5); Mean Corpuscular Hemoglobin 33.0 pg (28.0-32.0); Mean Corpuscular Volume 97.7 fL (80.0-100.0); Nucleated Red Blood Cells % 0.2 %; Potassium 4.1 mmol/L (3.5-5.1); Sodium 138 mmol/L (136-145)
[2025-07-26 04:12] LABS: Anion Gap 13 (5-15); Carbon Dioxide 23 mmol/L (20-31)
[2025-07-26 04:13] LABS: Calcium 8.9 mg/dL (8.7-10.4); INR 1.2 (0.9-1.15); Partial Thromboplastin Time 38.4 SEC (24.5-34.5); Prothrombin Time 12.5 sec (9.3-11.8)
[2025-07-26 04:18] LABS: BUN/Creatinine Ratio 20.8 (10.0-20.0); Blood Urea Nitrogen 26 mg/dL (9-23); Glucose 129 mg/dL (74-106)
--- NOTE | 2025-07-26 05:44 | DVH ---
CHEST RADIOGRAPH Indication: chf, pna Technique: Single frontal view of the chest was obtained COMPARISON: XY CHEST PORTABLE on DOS: 07/25/25, XY CHEST PORTABLE on DOS: 07/25/25, XY CHEST XRAY 1 VIEW on DOS: 07/24/25, XY CHEST PORTABLE on DOS: 07/22/25, XY CHEST PORTABLE on DOS: 06/18/25 FINDINGS: Lines and Tubes: Endotracheal tube, enteric catheter in satisfactory position. Left chest wall pacemaker. Lungs: Increased interstitial prominence. This may represent pulmonary vascular congestion and/or viral pneumonia. Pleura: No effusion.No pneumothorax. Cardiomediastinal contours: Cardiomegaly. Bones: Unremarkable IMPRESSION: Lines and tubes in satisfactory position. Increased interstitial prominence. This may represent pulmonary vascular congestion and/or viral pneumonia.
[2025-07-26 07:18] LABS: Base Excess -6.9 mmol/L (-2.0-3.0)
[2025-07-26] MEDS: ACETAMINOPHEN 650 MG RECT SUPP PR ONE (08:00)
[2025-07-26] MEDS: VERAPAMIL 2.5MG/ML INJ 2ML VIAL IV ONE (08:53)
[2025-07-26] MEDS: HEPARIN SODIUM (PORCINE) 5000 UNITS/ML 1ML VIAL ONE (08:53)
[2025-07-26] MEDS: LIDOCAINE 2%HCL (LOCAL ANESTH.) INJ 20ML MDV ONE (08:53)
[2025-07-26] MEDS: NITROGLYCERIN 50MG/250ML 250 ML IV ONE (08:53)
[2025-07-26] MEDS: ANGIOMAX 250 MG VIAL IV ONE (08:55)
[2025-07-26] MEDS: SODIUM CHL 0.9% 0 ML ONE (08:55)
--- NOTE | 2025-07-26 09:19 | DVHINCON2 ---
Date of service: Jul 26, 2025 Referring Physician Santo Reason for Consultation Altered mental status History of Present Illness Mr. kennedy is a 80 years old right-handed gentleman with a history of hypertension, diabetes, atrial fibrillation, dementia, obesity, he came to the [facility] on 07/22/2025 with a chief complaint of altered mental status. At this time, he is intubated, sedated, on pressor drip, the history is obtained from his son, nurse, chart review He is off his baseline health status but has been sleepy coincidentally after pacemaker insertion on 06/27/2025. His problem or slowly progressive, especially in the 2-3 days prior to this hospitalization, and family decided to bring him to the hospital. He coded on 07/24/2025 0219 (nonresponsiveness, bradycardia, desaturation), he was transferred to ICU afterwards He spiked temperature sometimes in the hospital, T-max in the last 24 hour: 102 degree He has a dementia for about 15 years, at the beginning was mild intermittent short-term memory difficulty, in the last five years, long-term memory has been affected. He remembers all his family members, he is not able to find his way home event he is close to his house According to ER record, memantine and Eliquis were in his home medication list Urinalysis, 07/22/2025: WBC: 11, urine leukocyte esterase: Negative ABG, 07/26/2025: Combined metabolic and respiratory acidosis Blood culture, 07/22/2025: No growth Blood culture, 07/24/2025: WBC/HB/PLT/MCV, 07/26/2025: 11.9/75/147/97.7 PT/INR/ABG, 07/25/2025: 12.2/1.17/34.7, 07/26/2025: 12.5/1.2/38.4 BUN/CR, 07/25/2025: 17/1.44 GFR, 07/25/2025: 49 HGB A1c, 07/24/2025: 7.8 TBI/AST/ALT/AP, 07/25/2025: 0.8/45/42/68 TG/HDL/LDL/HDL, 07/24/2025: 100/103/42/47 Vitamin B12, 07/24/25: 1658 TSH, 07/24/2025: 1.34 Chest x-ray, 07/24/2025: Heart is prominent size. There is moderate pulmonary vascular congestion. Dual lead left cardiac device. Enteric tube tip is not well visualized. Endotracheal tube is 4 cm from the de Chest x-ray, 07/26/2025: Lines and tubes in satisfactory position. Increased interstitial prominence. This may represent pulmonary vascular congestion and/or viral pneumonia. CT head, 07/22/2025: No acute intracranial abnormality. Past Medical History Hypertension, diabetes, dementia, atrial fibrillation, obesity Past Surgical History Pacemaker insertion, cholecystectomy Family History: Colon cancer G8 MOTHER (UNKNOWN CANCER) G8 FATHER (UNKNOWN CANCER) Family History Hypertension, diabetes run in the family. His mother, grandmother, one ankle, one cousin on his mother's side had dementia Social History Previous tobacco smoker, previous alcohol abuser, no history of drug abuse Allergies: Coded Allergies: NO KNOWN ALLERGIES (Unverified , 03/12/20) Home Meds Reported Medications Docusate Sodium (Colace) 100 Mg Cap, 1 CAP PO BID, #30 CAP 07/23/25 Lisinopril (Lisinopril) 20 Mg Tab, 0.5 TAB PO DAILY, #30 TAB 5 Refills 07/23/25 Atorvastatin Calcium (ATORVASTATIN CALCIUM) 10 Mg Tab, 1 TAB PO DAILY, #30 TAB 5 Refills 07/23/25 Memantine Hydrochloride (Memantine HCl) 5 Mg Tab, 5 MG PO HS, TAB 07/23/25 Benzonatate (Benzonatate) 200 Mg Cap, 1 CAP PO TID, #30 CAP 07/23/25 Furosemide (Furosemide) 20 Mg Tab, 1 TAB PO DAILY, #90 TAB 1 Refill 07/23/25 Apixaban Base (ELIQUIS) 5 Mg Tab, 5 MG PO BID, TAB 07/23/25 Empagliflozin (Jardiance) 25 Mg Tab, 25 MG PO DAILY, TAB 07/23/25 Acetaminophen (Tylenol Extra Strength) 500 Mg Tab, 500 MG PO Q6HP PRN for PAIN, TAB 03/12/20 Current Medications Current Medications Medications (Trade) Dose Ordered Sig/Lizabeth Route PRN Reason Start Time Stop Time Status Last Admin Aspirin 81 mg DAILY PO 07/25/25 10:00 07/25/25 10:03 Enteral Nutritional Formula (Glucerna 1.2 Venkat) 1,000 ml 30ML/HR GT 07/25/25 09:30 07/25/25 15:27 Furosemide (Lasix Injection) 20 mg DAILY IV 07/25/25 10:00 07/25/25 09:55 Azithromycin 250 ml @ 125 mls/hr DAILY IV 07/25/25 10:00 Hold Pantoprazole Sodium (Protonix) 40 mg DAILY IV 07/25/25 10:00 07/25/25 09:54 Mupirocin (Bactroban 2% Ointment) 1 applic BID EACHNOSTRI 07/25/25 10:00 07/30/25 09:59 07/25/25 21:50 Purified Water 100 ml Q6HR GT 07/25/25 12:00 07/25/25 23:09 Norepinephrine Bitartrate 250 ml @ 3.75 mls/hr Q24H IV 07/25/25 10:45 07/26/25 03:03 Amiodarone HCl (Cordarone Tablet) 200 mg Q12HR GT 07/25/25 22:00 07/25/25 21:50 Review of Systems As above, the other systems are negative Vital Signs Vital Signs Date Time Temp Pulse Resp B/P (MAP) Pulse Ox O2 Delivery O2 Flow Rate FiO2 07/26/25 07:15 98.6 82 14 106/61 (76) 100 209.5 07/26/25 06:38 30 07/26/25 06:00 Mechanical Ventilator+ 07/24/25 08:00 0 Physical Exam The patient is well-nourished and well-developed with no distress. The patient is intubated HEENT: Normocephalic, neck supple, no carotid bruits Lungs: Clear to auscultation Cardiovascular: Regular rate and region, S1, S2, no murmurs Abdomen: Soft, nontender, normal bowel sounds MENTAL STATUS: Responsive to stroke painful stimuli CRANIAL NERVES: Pupils are equal, round and reactive.There are corneal reflexes and doll's eyes phenomenon. No signs of facial weakness. There are gagging or coughing reflexes SENSATION: Responses to pain stimuli. MOTOR: Normal tone in the upper and lower extremity. Normal muscle bulk. No fasciculations. No spontaneous movement. REFLEXES: Deep tendon reflexes are symmetrical. No pathological reflexes. CEREBELLAR/COORDINATION: Deferred GAIT/STATION: deferred. Labs/Diagnostic Data Labs Test 07/26/25 06:55 07/26/25 06:48 07/26/25 03:25 07/25/25 13:58 Range/Units Blood Gas Specimen Type Arterial Blood Gas Sample Site Right radial Blood Gas Patient Temperature 37.0 Arterial Blood Date Drawn [id number] Arterial Blood pH 7.243 *L 7.350-7.450 Arterial Blood Partial Pressure CO2 49.5 H 35.0-48.0 mmHg Arterial Blood Partial Pressure O2 93.6 83.0-108.0 mmHg Arterial Blood HCO3 20.9 L 21.0-28.0 mmol/L Arterial Blood Oxygen Saturation 96.5 94.0-98.0 % Arterial Blood Base Excess -6.9 L -2.0-3.0 mmol/L Arterial Blood Oxyhemoglobin 94.9 94.0-98.0 % Arterial Blood Carboxyhemoglobin 1.0 0.5-1.5 % Arterial Blood Methemoglobin 0.7 0.0-1.5 % Arterial Blood Deoxyhemoglobin 3.4 0.0-5.0 % Brennan Test Modified Blood Gas Total Hemoglobin 19.10 *H 13.5-17.5 g/dL Blood Gas Set Respiration Rate 14.0 Blood Gas Modality Vent - ac FiO2 % 30.0 Blood Gas Tidal Volume 550.0 Blood Gas PEEP or CPAP 5.0 Blood Gas Critical Value Read Back Yes Blood Gas Notified Whom prabhakar Sweeney np Blood Gas Notified Time [id number] Blood Gas Notified By Nursing Assistants Teacher mihaela avila POC Glucose 155 H 70-106 mg/dl White Blood Count 11.9 H 4.4-10.8 10^3/uL Red Blood Count 5.30 4.5-5.90 10^6/uL Hemoglobin 17.5 13.5-17.5 g/dL Hematocrit 51.8 41.0-53.0 % Mean Corpuscular Volume 97.7 80.0-100.0 fL Mean Corpuscular Hemoglobin 33.0 H 28.0-32.0 pg Mean Corpuscular Hemoglobin Concent 33.8 32.0-36.0 g/dL Red Cell Distribution Width 14.0 11.8-14.3 % Platelet Count 147 140-450 10^3/uL Mean Platelet Volume 8.6 6.9-10.8 fL Neutrophils (%) (Auto) 69.3 37.0-80.0 % Lymphocytes (%) (Auto) 15.6 10.0-50.0 % Monocytes (%) (Auto) 14.5 H 0.0-12.0 % Eosinophils (%) (Auto) 0.4 0.0-7.0 % Basophils (%) (Auto) 0.2 0.0-2.0 % Neutrophils # (Auto) 8.2 1.6-8.6 10 ^3/uL Lymphocytes # (Auto) 1.8 0.4-5.4 10 ^3/uL Monocytes # (Auto) 1.7 H 0-1.3 10 ^3/uL Eosinophils # (Auto) 0 0-0.8 10 ^3/uL Basophils # (Auto) 0 0-0.2 10 ^3/uL Nucleated Red Blood Cells 0.2 % Prothrombin Time 12.5 H 9.3-11.8 sec Prothrombin Time INR 1.20 H 0.9-1.15 Activated Partial Thromboplast Time 38.4 H 24.5-34.5 SEC Sodium Level 138 136-145 mmol/L Potassium Level 4.1 3.5-5.1 mmol/L Chloride Level 102 98-107 mmol/L Carbon Dioxide Level 23 20-31 mmol/L Anion Gap 13 5-15 Blood Urea Nitrogen 26 H 9-23 mg/dL Creatinine 1.25 0.700-1.30 mg/dL Glomerular Filtration Rate Calc 59 >90 mL/min BUN/Creatinine Ratio 20.8 H 10.0-20.0 Serum Glucose 129 H 74-106 mg/dL Calcium Level 8.9 8.7-10.4 mg/dL Creatine Kinase 701 H 46-171 U/L Test 07/25/25 03:05 07/24/25 14:47 07/24/25 08:30 07/24/25 03:20 Range/Units Erythrocyte Sedimentation Rate 3 0-20 mm/hr Total Bilirubin 0.8 0.2-1.0 mg/dL Aspartate Amino Transferase (AST) 45 H 13-40 U/L Alanine Aminotransferase (ALT) 42 H 7-40 U/L Alkaline Phosphatase 68 46-116 U/L Troponin I High Sensitivity 657 *H </=54 ng/L C-Reactive Protein High Sensitivity 3.74 H <1.0 mg/dL B-Type Natriuretic Peptide 13.17 0-100 pg/mL Total Protein 7.9 5.7-8.2 g/dL Albumin 4.2 3.2-4.8 g/dL Ammonia 20 11-32 umol/L Vitamin B12 Level 1658 H 211-911 pg/mL Triglycerides Level 100 < 150 mg/dL Cholesterol Level 103 < 200 mg/dL LDL Cholesterol 42 < 100 mg/dL HDL Cholesterol 47 40-59 mg/dL Thyroid Stimulating Hormone (TSH) 1.34 0.55-4.78 uIU/mL D-Dimer, Quantitative 0.87 H 0.0-0.49 mg/L FEU Hemoglobin A1c 7.8 H <5.7 % A1C Phosphorus Level 4.0 2.4-5.1 mg/dL Magnesium Level 2.4 1.6-2.6 mg/dL Test 07/23/25 06:28 07/22/25 17:07 07/22/25 10:51 07/22/25 09:31 Range/Units Hepatitis B Surface Antigen Negative Negative Hepatitis C Antibody Negative Negative Influenza Type A Antigen Negative Negative Influenza Type B Antigen Negative Negative SARS-CoV-2 Antigen (Rapid) Negative NEGATIVE Urine Color Light-yellow Yellow Urine Clarity Clear Clear Urine pH 5.5 5.0-9.0 Urine Specific [place] 1.025 1.001-1.035 Urine Protein Negative Negative Urine Ketones Negative Negative Urine Blood 2+ H Negative /uL Urine Nitrite Negative Negative Urine Bilirubin Negative Negative Urine Urobilinogen Normal Negative mg/dL Urine Leukocyte Esterase Negative Negative /uL Urine RBC 57 0 - 3 /hpf Urine Microscopic WBC 11 H 0-3 /HPF Urine Squamous Epithelial Cells None seen <5 /hpf Urine Bacteria None seen None Seen /hpf Urine Glucose 4+ H Normal mg/dL Lactic Acid Level 1.8 0.4-2.0 mmol/L Microbiology Date/Time Source Procedure Growth Status 07/24/25 03:35 Urine - [place] Urine Culture - Preliminary No growth Resulted 07/24/25 03:26 Trachea Gram Stain - Final Resulted 07/24/25 03:26 Trachea Respiratory Culture - Preliminary Resulted 07/22/25 09:53 Blood Blood Culture - Preliminary NO GROWTH AFTER 72 HOURS OF INCUBATION. Resulted Assessment Coma, fever Metabolic encephalopathy Toxic encephalopathy Hypoxic encephalopathy Rule out intracranial infection Dementia, likely Alzheimer disease, he may have a least moderate degree of dementia AFib Coagulopathy secondary to anticoagulation treatment Acute respiratory failure Sepsis Plan/Recommendation Monitoring Supportive treatment ICU care EEG Respiratory support/vent management Stabilize vitals/pressor drip Oxygen IV antibiotics Anticoagulation/Lovenox 120 mg substance b.i.d. Infectious disease consultation More recommendation per clinical course Prognosis: Poor This medical document was created using an electronic medical record system with Osm[employer] dictation system. Although this document has been carefully reviewed, there may still be some phonetic and typographical errors. These areas are purely typographical due to imperfections of the software programs, and do not reflect any compromise in the patient's medical care. Plan discussed with: Louann Tony QUANWEI MD Jul 26, 2025 09:19
--- NOTE | 2025-07-26 09:45 | DVHPN2 ---
Subjective Patient intubated and sedated Reviewed: Care Plan, H&P, Labs, Medications Changes from previous H/P or p: No Changes General: Per HPI Eyes: No Pain, No Vision change, No Conjunctivae inflammation, No Eyelid inflammation, No Other, No Redness ENT: No Ear pain, No Ear discharge, No Nose pain, No Nose discharge, No Nose congestion, No Mouth pain, No Mouth swelling, No Throat pain, No Throat swelling, No Other Cardiovascular: No Chest Pain, No Palpitations, No Orthopnea, No Paroxysmal Noc. Dyspnea, No Edema, No Lt Headedness, No Other Respiratory: No Cough, No Dry, No Shortness of breath, No SOB with excertion, No Wheezing, No Hemoptysis, No Pleuritic Pain, No Sputum, No Other Gastrointestinal: No Nausea, No Vomiting, No Abdominal Pain, No Diarrhea, No Constipation, No Melena, No Hematochezia, No Other Genitourinary: Frequency, Incontinence Musculoskeletal: No other, No neck pain, No shoulder pain, No arm pain, No back pain, No hand pain, No leg pain, No foot pain Skin: No Rash, No Lesions, No Jaundice, No Bruising, No Other Objective Vitals Vital Signs Date Time Temp Pulse Resp B/P (MAP) Pulse Ox O2 Delivery O2 Flow Rate FiO2 07/26/25 07:15 98.6 82 14 106/61 (76) 100 209.5 07/26/25 06:38 30 07/26/25 06:00 Mechanical Ventilator+ 07/24/25 08:00 0 Intake/Output Intake and Output 07/26/25 07:00 Intake Total 1928.75 ml Output Total 1300 ml Balance 628.75 ml Intake Oral 675 ml IV Total 1133.75 ml Tube Feeding 120 ml Output Urine Total 1300 ml General Appearance: mild distress HEENT: Atraumatic, PERRLA Cardiovascular: Normal S1, Normal S2 Abdomen: Normal bowel sounds, Soft, No tenderness, No hepatospenomegaly Genitourinary: No Apparent Abnormalities ([place] catheter) Musculoskeletal: Other (Unable to assess) Skin: Dry, Intact Psych/Mental Status: Other (Unable to assess) Medications Current Medications Medications Dose Ordered Sig/Lizabeth Route Start Time Stop Time Status Last Admin Dose Admin Ondansetron HCl 4 mg Q4HP PRN IV 07/22/25 15:00 Nitroglycerin 0.4 mg Q5MINP PRN SL 07/22/25 15:00 Ceftriaxone Sodium 50 ml @ 100 mls/hr DAILY IV 07/22/25 15:00 07/25/25 10:03 100 MLS/HR Diagnostic Test (Pha) 1 strip ACHS 07/22/25 17:00 07/26/25 06:58 1 STRIP Insulin Human Regular ACHS SC 07/22/25 17:00 07/26/25 06:58 2 UNITS Dextrose 50 ml UD PRN IV 07/22/25 16:30 Acetaminophen 500 mg Q6HP PRN PO 07/23/25 17:45 07/25/25 01:52 500 MG Docusate Sodium 100 mg BID PO 07/23/25 22:00 07/25/25 21:50 100 MG Memantine 5 mg HS PO 07/23/25 22:00 07/25/25 21:50 5 MG Empaglifozin 25 mg DAILY PO 07/24/25 10:00 07/25/25 09:57 25 MG Midazolam HCl 100 ml @ 1 mls/hr Q24H IV 07/24/25 02:45 07/26/25 03:04 9 MLS/HR Fentanyl Citrate 250 ml @ 2.5 mls/hr Q24H IV 07/24/25 02:45 07/26/25 03:04 20 MLS/HR Midazolam HCl 100 ml @ 1 mls/hr Q24H IV 07/24/25 02:45 Cancel Fentanyl Citrate 250 ml @ 2.5 mls/hr Q24H IV 07/24/25 02:45 Cancel Phenylephrine HCl 250 ml @ 30 mls/hr Q8H20M IV 07/24/25 04:45 Enoxaparin Sodium 120 mg Q12HR SC 07/24/25 22:00 07/25/25 21:50 120 MG Atorvastatin Calcium 40 mg HS PO 07/24/25 22:00 07/25/25 21:50 40 MG Aspirin 81 mg DAILY PO 07/25/25 10:00 07/25/25 10:03 81 MG Enteral Nutritional Formula 1,000 ml 30ML/HR GT 07/25/25 09:30 07/25/25 15:27 1,000 ML Furosemide 20 mg DAILY IV 07/25/25 10:00 07/25/25 09:55 20 MG Azithromycin 250 ml @ 125 mls/hr DAILY IV 07/25/25 10:00 Hold Pantoprazole Sodium 40 mg DAILY IV 07/25/25 10:00 07/25/25 09:54 40 MG Mupirocin 1 applic BID EACHNOSTRI 07/25/25 10:00 07/30/25 09:59 07/25/25 21:50 1 APPLIC Purified Water 100 ml Q6HR GT 07/25/25 12:00 07/25/25 23:09 100 ML Norepinephrine Bitartrate 250 ml @ 3.75 mls/hr Q24H IV 07/25/25 10:45 07/26/25 03:03 22.5 MLS/HR Amiodarone HCl 200 mg Q12HR GT 07/25/25 22:00 07/25/25 21:50 200 MG Laboratory Results Laboratory Tests 07/26/25 03:25 Chemistry Test 07/26/25 03:25 Calcium Level 8.9 mg/dL (8.7-10.4) Coagulation Test 07/25/25 13:58 07/26/25 03:25 Prothrombin Time 12.2 sec (9.3-11.8) H 12.5 sec (9.3-11.8) H Prothrombin Time INR 1.17 (0.9-1.15) H 1.20 (0.9-1.15) H Activated Partial Thromboplast Time 34.7 SEC (24.5-34.5) H 38.4 SEC (24.5-34.5) H Urinalysis Test 07/22/25 10:51 Urine Color Light-yellow (Yellow) Urine Clarity Clear (Clear) Urine pH 5.5 (5.0-9.0) Urine Specific [place] 1.025 (1.001-1.035) Urine Protein Negative (Negative) Urine Ketones Negative (Negative) Urine Blood 2+ /uL (Negative) H Urine Nitrite Negative (Negative) Urine Bilirubin Negative (Negative) Urine Urobilinogen Normal mg/dL (Negative) Urine Leukocyte Esterase Negative /uL (Negative) Urine RBC 57 /hpf (0 - 3) Urine Microscopic WBC 11 /HPF (0-3) H Urine Squamous Epithelial Cells None seen /hpf (<5) Urine Bacteria None seen /hpf (None Seen) Urine Glucose 4+ mg/dL (Normal) H Blood Gas Results Test 07/25/25 10:00 07/26/25 06:55 Arterial Blood pH 7.305 (7.350-7.450) 7.243 (7.350-7.450) FiO2 % 30.0 30.0 Microbiology Microbiology Date/Time Source Procedure Growth Status 07/24/25 03:35 Urine - [place] Urine Culture - Preliminary No growth Resulted 07/24/25 03:26 Trachea Gram Stain - Final Resulted 07/24/25 03:26 Trachea Respiratory Culture - Preliminary Resulted 07/22/25 09:53 Blood Blood Culture - Preliminary NO GROWTH AFTER 72 HOURS OF INCUBATION. Resulted Labs and/or images reviewed: Labs reviewed by me, Image(s) reviewed by me Assessment/Plan Assessment/Plan Impression: -acute metabolic encephalopathy -acute hypoxic respiratory failure -questionable acute seizure activity with postictal state -acute on chronic diastolic heart failure -atrial flutter with controlled rate -recent placement of dual-chamber pacemaker -? History of ETOH -acute kidney injury, vasomotor nephropathy -obesity -primary hypertension -NSTEMI, probably type 2 -rhabdomyolysis Plan: Events: Patient afebrile today. Noted to have stiff neck yesterday while placing right IJ central line. CPK noted to be elevated. Neuro consultation continues to be pending. Patient receiving left heart catheterization today. -continue Rocephin, and azithromycin -neurology consultation pending Cardiology consultation: Plans for left heart catheterization tomorrow -start tube feeding with free water -antipyretic -continue anticoagulation with Eliquis -continue current ventilator settings -repeat labs, chest x-ray, ABG in a.m. -social service consultation for transfer to [facility] Critical care time spent with patient discussing and formulating plan of care: 40 minutes. This does not include time spent performing procedures. This medical document was created using an electronic medical record system with setObject dictation system. Although this document has been carefully reviewed, there may still be some phonetic and typographical errors. These areas are purely typographical due to imperfections of the software programs, and do not reflect any compromise in the patient's medical care. Plan discussed with: Patient, Other (RN) My Orders Orders - FLORY OSMAN NP Procedure Category Date Status Time Free Water PHA 07/25/25 In Process 12:00 Norepinephrine 8 PHA 07/25/25 In Process Mg/250ml Kit 10:45 * Picc Line Consult CONS 07/25/25 Transmitted 13:20 Us Guided Vascular US 07/25/25 Logged Access 16:27 Chest Portable XY 07/25/25 Resulted 17:04 Ventilator Orders RT 07/26/25 Transmitted 08:11 * Neurology Consult CONS 07/26/25 Transmitted 08:11 Creatine Kinase LAB 07/27/25 Verified 04:00 Basic Metabolic Panel LAB 07/27/25 Verified 05:00 Basic Metabolic Panel LAB 07/28/25 Verified 05:00 Basic Metabolic Panel LAB 07/29/25 Verified 05:00 Complete Blood Count LAB 07/27/25 Verified 05:00 Complete Blood Count LAB 07/28/25 Verified 05:00 Complete Blood Count LAB 07/29/25 Verified 05:00 Date of Service: Jul 26, 2025 Billing Provider: FLORY OSMAN NP Common Visit Codes: 63803-[id number] CARE 30-74 MIN FLORY OSMAN NP Jul 26, 2025 09:45
[2025-07-26] MEDS ORDERED: MUPIROCIN 2% OINT 15gm or 22gm FOR MRSA NARES EACHNOSTRI SCH (10:00)
--- NOTE | 2025-07-26 11:22 | DVHOP ---
DATE OF SURGERY: 07/26/2025 TECHNIQUES PERFORMED: * Emergency case. * Ultrasound of right radial artery, management of conscious sedation. * Ultrasound-guided insertion of 6-Czech arterial line from right radial artery. * Attempt for left heart cath and LV gram. * [place] selective left and right coronary angiography. ASSISTANTS: Eddie Zapata Patrick, and Jozef. COMPLICATIONS: None. INDICATIONS: The patient has got underlying cardiorespiratory failure. The patient has known ST-elevation myocardial infarction type 1, paroxysmal atrial fibrillation, decompensated congestive heart failure, respiratory failure, diabetes, hypertension, dyslipidemia, previous smoker, and the procedure, risks, benefits all have been explained in a standard manner. DESCRIPTION OF PROCEDURE: The patient has been brought to optical lab technician and the patient has already been intubated. The patient's right radial area thoroughly cleaned with soap and Betadine and lidocaine was given. A 6-Czech arterial line also has been placed under ultrasound guidance. Subsequently, we have put TIG catheter 5-Czech 4.0. We were unable to engage it. Then, we had to use the glidewire and then able to get a JR4 catheter and the right coronary angiography done. With the help of the EBU catheter 3.5, we had the left coronary angiography was done. We tried to go into the left ventricle with the help of the EBU, unable to go through it. Tried also multiple catheters, unable to go through it, so the procedure had not been continued at this time. IMPRESSION: * Normal left main. * Left anterior descending artery in the mid region has underlying 70% narrowing at the site of the bifurcation. * Diagonal artery also normal. * The right coronary artery is a large dominant artery and is normal. The previously noted ejection fraction on the echo done in 05/2025, ejection fraction was 40%. CONCLUSION: * The patient has the normal left main. * Left anterior descending artery in the mid region is 70% narrowed at the site of the bifurcation, but it is not critical. SNEHA grade 3 flow. There is also origin of the diagonal artery at the same site of the lesion. * Circumflex obtuse marginal artery normal. * Right coronary artery, right dominant artery, normal. * Previous echo has revealed ejection fraction of 40%. PLAN OF ACTION: In my opinion, the patient does not need angioplasty or stent at this time. He should be treated conservatively. He will need outpatient followup in the Cardiology Clinic. Subsequently, he will also need to have adenosine Cardiolite stress test after a few months. Meanwhile, aspirin, beta-cielo, and cholesterol reducing medicine. Micaela Bernabe MD MP/HAYDEN/SD TID: [id number] RECEIPT: [id number]
[2025-07-26] MEDS: SODIUM CHLORIDE 0.9% 1,000 ML IV ONE (12:20)
--- NOTE | 2025-07-26 14:15 | DVHPN2 ---
Consult Progress Note Date Seen: Jul 26, 2025 Subjective Other Systems: No cardiac events reported Objective vital signs Vital Sign Date Time Temp Pulse Resp B/P (MAP) Pulse Ox O2 Delivery O2 Flow Rate FiO2 07/26/25 12:19 104/55 07/26/25 07:15 98.6 82 14 100 209.5 07/26/25 06:38 30 07/26/25 06:00 Mechanical Ventilator+ 07/24/25 08:00 0 Total Intake and Output 07/25/25 07/25/25 07/26/25 14:59 22:59 06:59 Intake Total 337.75 ml 679.0 ml 937.5 ml Output Total 550 ml 750 ml Balance 337.75 ml 129.0 ml 187.5 ml medications Current Medications Medications Dose Ordered Sig/Lizabeth Route Start Time Stop Time Status Last Admin Dose Admin Ondansetron HCl 4 mg Q4HP PRN IV 07/22/25 15:00 Nitroglycerin 0.4 mg Q5MINP PRN SL 07/22/25 15:00 Ceftriaxone Sodium 50 ml @ 100 mls/hr DAILY IV 07/22/25 15:00 07/26/25 11:58 100 MLS/HR Diagnostic Test (Pha) 1 strip ACHS 07/22/25 17:00 07/26/25 12:03 1 STRIP Insulin Human Regular ACHS SC 07/22/25 17:00 07/26/25 06:58 2 UNITS Dextrose 50 ml UD PRN IV 07/22/25 16:30 Acetaminophen 500 mg Q6HP PRN PO 07/23/25 17:45 07/25/25 01:52 500 MG Docusate Sodium 100 mg BID PO 07/23/25 22:00 07/25/25 21:50 100 MG Memantine 5 mg HS PO 07/23/25 22:00 07/25/25 21:50 5 MG Empaglifozin 25 mg DAILY PO 07/24/25 10:00 07/26/25 12:01 25 MG Midazolam HCl 100 ml @ 1 mls/hr Q24H IV 07/24/25 02:45 07/26/25 12:19 10 MLS/HR Fentanyl Citrate 250 ml @ 2.5 mls/hr Q24H IV 07/24/25 02:45 07/26/25 12:18 30 MLS/HR Midazolam HCl 100 ml @ 1 mls/hr Q24H IV 07/24/25 02:45 Cancel Fentanyl Citrate 250 ml @ 2.5 mls/hr Q24H IV 07/24/25 02:45 Cancel Phenylephrine HCl 250 ml @ 30 mls/hr Q8H20M IV 07/24/25 04:45 Atorvastatin Calcium 40 mg HS PO 07/24/25 22:00 07/25/25 21:50 40 MG Aspirin 81 mg DAILY PO 07/25/25 10:00 07/25/25 10:03 81 MG Enteral Nutritional Formula 1,000 ml 30ML/HR GT 07/25/25 09:30 07/25/25 15:27 1,000 ML Furosemide 20 mg DAILY IV 07/25/25 10:00 07/26/25 12:03 20 MG Pantoprazole Sodium 40 mg DAILY IV 07/25/25 10:00 07/26/25 12:02 40 MG Mupirocin 1 applic BID EACHNOSTRI 07/25/25 10:00 07/30/25 09:59 07/26/25 12:02 1 APPLIC Purified Water 100 ml Q6HR GT 07/25/25 12:00 07/26/25 12:18 100 ML Norepinephrine Bitartrate 250 ml @ 3.75 mls/hr Q24H IV 07/25/25 10:45 07/26/25 03:03 22.5 MLS/HR Amiodarone HCl 200 mg Q12HR GT 07/25/25 22:00 07/26/25 11:55 200 MG Examination: LUNGS:Abnormal (Endotracheally intubated 30% FiO2), CVS:Normal (V- paced with underlined sinus rhythm), NEURO:Abnormal (Chemically sedated) laboratory and microbiology Laboratory Tests 07/26/25 03:25 Test 07/26/25 03:25 Range/Units Serum Glucose 129 H 74-106 mg/dL Problem List/Assessment/Plan Problem List/Assessment/Plan Non ST-elevation myocardial infarction, questionable type 1 Paroxysmal atrial fibrillation/atrial flutter, now NSR (on Eliquis therapy at home) [place] decompensated HFrEF, NYHA Class III Presence of dual-chamber pacemaker ([employer]) Acute hypoxic respiratory failure Diabetes mellitus, newly diagnosed Hypertension Dyslipidemia Former smoker/alcoholic Obesity * Transthoracic echocardiogram revealed LVEF 40% with global hypokinesis and RV function moderately diminished * Cardiac catheterization and coronary angiogram revealed a LAD mid-region lesion of 70% at the site of bifurcation (see full dictated report) * 12 lead electrocardiogram revealed an atrial flutter rhythm at a controlled rate with lateral ST-depression. These changes are new compared to ECGs from previous admission on 05/2025 * Troponin level 107 ng/L. BNP 39 pg/mL Plan/Recommendation (Dr. Bernabe) Case discussed in detail with Dr. Bernabe. The patient underwent a cardiac catheterization and coronary angiogram where he was found with a 70% mid-LAD lesion without catheter based intervention with recommendations for conservative management and follow-up with Cardiology as outpatient including an eventual cardiolite stress test. In the meantime, continue ASA, high-intensity statin, and therapeutic Lovenox. Transition to low-dose Eliquis if no further bleeding ([id number] Score 5 points, HAS-BLED Score 2 points). Continue antiarrhythmic therapy with amiodarone. Initiate full GDMT for HFrEF when hemodynamics permits. Follow-up with primary performance improvement coordinator at [facility] as scheduled. Kindly call if in need of further recommendations. Signing off at this time. Thank you for allowing us to participate in this patient's care. Critical care time: 30 minutes. This medical document was created using an electronic medical record system with voice recognition software and computerized dictation system. Although this document has been carefully reviewed, there might still be some phonetic and typographical errors. Occasional wrong-word or ``sound-alike substitutions may have occurred due to the inherent limitations of voice recognition software. These areas are purely typographical due to imperfections of the software programs and do not reflect any compromise in the patient's medical care. Please read the chart carefully and recognize, using context, where these substitutions have occurred. Plan discussed with: Other Date of Service: Jul 26, 2025 Billing Provider: MAURICIO KEY Cardiology Common Codes: 51506-[id number] CARE 30-74 MIN MAURICIO KEY Jul 26, 2025 14:15
[2025-07-26] MEDS: APIXABAN 2.5 MG TAB PO SCH (21:31)
--- NOTE | 2025-07-26 23:36 | DVHPN2 ---
Consult Progress Note Date Seen: Jul 26, 2025 Subjective Other Systems: Patient was seen and evaluated in follow up in the ICU. Patient is intubated and sedated on ventilator. 30% FiO2. No cardiac events reported. Cardiac catheterization and coronary angiogram revealed a LAD mid-region lesion of 70% at the site of bifurcation (see full dictated report). WBC 11.9, BUN 26. Chest x-ray shows increased interstitial prominence. Objective vital signs Vital Sign Date Time Temp Pulse Resp B/P (MAP) Pulse Ox O2 Delivery O2 Flow Rate FiO2 07/26/25 12:19 104/55 07/26/25 08:00 84 07/26/25 08:00 30 07/26/25 08:00 14 99 Mechanical Ventilator+ 07/26/25 07:15 98.6 209.5 07/24/25 08:00 0 Total Intake and Output 07/25/25 07/25/25 07/26/25 15:00 23:00 07:00 Intake Total 362.75 ml 679.0 ml 887.0 ml Output Total 550 ml 750 ml Balance 362.75 ml 129.0 ml 137.0 ml medications Current Medications Medications Dose Ordered Sig/Lizabeth Route Start Time Stop Time Status Last Admin Dose Admin Ondansetron HCl 4 mg Q4HP PRN IV 07/22/25 15:00 Nitroglycerin 0.4 mg Q5MINP PRN SL 07/22/25 15:00 Ceftriaxone Sodium 50 ml @ 100 mls/hr DAILY IV 07/22/25 15:00 07/26/25 11:58 100 MLS/HR Diagnostic Test (Pha) 1 strip ACHS 07/22/25 17:00 07/26/25 12:03 1 STRIP Insulin Human Regular ACHS SC 07/22/25 17:00 07/26/25 06:58 2 UNITS Dextrose 50 ml UD PRN IV 07/22/25 16:30 Acetaminophen 500 mg Q6HP PRN PO 07/23/25 17:45 07/25/25 01:52 500 MG Docusate Sodium 100 mg BID PO 07/23/25 22:00 07/25/25 21:50 100 MG Memantine 5 mg HS PO 07/23/25 22:00 07/25/25 21:50 5 MG Empaglifozin 25 mg DAILY PO 07/24/25 10:00 07/26/25 12:01 25 MG Midazolam HCl 100 ml @ 1 mls/hr Q24H IV 07/24/25 02:45 07/26/25 12:19 10 MLS/HR Fentanyl Citrate 250 ml @ 2.5 mls/hr Q24H IV 07/24/25 02:45 07/26/25 12:18 30 MLS/HR Midazolam HCl 100 ml @ 1 mls/hr Q24H IV 07/24/25 02:45 Cancel Fentanyl Citrate 250 ml @ 2.5 mls/hr Q24H IV 07/24/25 02:45 Cancel Phenylephrine HCl 250 ml @ 30 mls/hr Q8H20M IV 07/24/25 04:45 Atorvastatin Calcium 40 mg HS PO 07/24/25 22:00 07/25/25 21:50 40 MG Aspirin 81 mg DAILY PO 07/25/25 10:00 07/25/25 10:03 81 MG Enteral Nutritional Formula 1,000 ml 30ML/HR GT 07/25/25 09:30 07/25/25 15:27 1,000 ML Furosemide 20 mg DAILY IV 07/25/25 10:00 07/26/25 12:03 20 MG Pantoprazole Sodium 40 mg DAILY IV 07/25/25 10:00 07/26/25 12:02 40 MG Mupirocin 1 applic BID EACHNOSTRI 07/25/25 10:00 07/30/25 09:59 07/26/25 12:02 1 APPLIC Purified Water 100 ml Q6HR GT 07/25/25 12:00 07/26/25 12:18 100 ML Norepinephrine Bitartrate 250 ml @ 3.75 mls/hr Q24H IV 07/25/25 10:45 07/26/25 03:03 22.5 MLS/HR Amiodarone HCl 200 mg Q12HR GT 07/25/25 22:00 07/26/25 11:55 200 MG Examination: GENERAL:Abnormal, HEENT:Abnormal, LUNGS:Abnormal (Endotracheally intubated 30% FiO2), CVS:Normal (V-paced with underlined sinus rhythm), NEURO:Abnormal (Chemically sedated) laboratory and microbiology Laboratory Tests 07/26/25 03:25 Test 07/26/25 03:25 Range/Units Serum Glucose 129 H 74-106 mg/dL Problem List/Assessment/Plan Problem List/Assessment/Plan Problem list Non ST-elevation myocardial infarction, questionable type 1. Paroxysmal atrial fibrillation/atrial flutter, now NSR (on Eliquis therapy at home). [place] decompensated HFrEF, NYHA Class III. Presence of dual-chamber pacemaker ([employer]). Acute hypoxic respiratory failure. Diabetes mellitus, newly diagnosed. Hypertension. Dyslipidemia. Former smoker/alcoholic. Obesity. Plan/Recommendation Continued all current supportive medical care. Patient has been seen by Reyna Loyd NP on my behalf. We have discussed the plan with the patient. Transthoracic echocardiogram revealed LVEF 40% with global hypokinesis and RV function moderately diminished. Cardiac catheterization and coronary angiogram revealed a LAD mid-region lesion of 70% at the site of bifurcation (see full dictated report). 12 lead electrocardiogram revealed an atrial flutter rhythm at a controlled rate with lateral ST-depression. These changes are new compared to ECGs from previous admission on 05/2025. Troponin level 107 ng/L. BNP 39 pg/mL. The patient underwent a cardiac catheterization and coronary angiogram where he was found with a 70% mid-LAD lesion without catheter based intervention with recommendations for conservative management and follow-up with Cardiology as outpatient including an eventual cardiolite stress test. In the meantime, continue ASA, high-intensity statin, and therapeutic Lovenox. Transition to low-dose Eliquis if no further bleeding ([id number] Score 5 points, HAS-BLED Score 2 points). Continue antiarrhythmic therapy with amiodarone. Initiate full GDMT for HFrEF when hemodynamics permits. Follow-up with primary screw remover at [facility] as scheduled. Additional plan as per the hospital course. Plan discussed with: Other Date of Service: Jul 26, 2025 Billing Provider: ANUPAMA JACOBO MD Cardiology Common Codes: [id number] HOSP CARE(High, [id number] CARE 30-74 MIN ANUPAMA JACOBO MD Jul 26, 2025 14:39
[2025-07-27] VITALS (108 sets, daily range): BP systolic 93–137; BP diastolic 34–81; PULSE 70–93; RESP 8–24; TEMP 96.6–101.5; O2SAT 94–100
[2025-07-27 02:50] LABS: Chloride 105 mmol/L (98-107); Potassium 4.2 mmol/L (3.5-5.1); Sodium 140 mmol/L (136-145)
[2025-07-27 02:51] LABS: Anion Gap 13 (5-15); Carbon Dioxide 22 mmol/L (20-31)
[2025-07-27 02:53] LABS: Hematocrit 47.9 % (41.0-53.0); Hemoglobin 16.0 g/dL (13.5-17.5); Mean Corpuscular Hemoglobin 32.7 pg (28.0-32.0); Mean Corpuscular Volume 97.7 fL (80.0-100.0); Nucleated Red Blood Cells % 0.0 %
[2025-07-27 02:56] LABS: BUN/Creatinine Ratio 27.0 (10.0-20.0)
[2025-07-27 03:20] LABS: Blood Urea Nitrogen 33 mg/dL (9-23); Calcium 8.5 mg/dL (8.7-10.4); Creatine Kinase IFCC 346 U/L (46-171); Glucose 155 mg/dL (74-106)
--- NOTE | 2025-07-27 06:01 | DVH ---
CHEST RADIOGRAPH Indication: CHF Technique: XY CHEST PORTABLE COMPARISON: 07/26/2025 FINDINGS: The endotracheal tube tip projects 3.5 cm above the de. Nasogastric tube projects towards stomach. Right IJ catheter tip projects over the SVC. Left chest dual lead cardiac pacer device. The cardiac silhouette is enlarged. The lungs demonstrate bilateral patchy airspace opacities. The pulmonary vasculature is prominent. Small bilateral pleural effusions. There is no pneumothorax. IMPRESSION: As above
[2025-07-27 07:44] LABS: Base Excess -6.4 mmol/L (-2.0-3.0)
[2025-07-27 11:44] LABS: Hematocrit 48.4 % (41.0-53.0); Hemoglobin 15.8 g/dL (13.5-17.5); Mean Corpuscular Hemoglobin 32.2 pg (28.0-32.0); Mean Corpuscular Volume 98.4 fL (80.0-100.0); Nucleated Red Blood Cells % 0.1 %
--- NOTE | 2025-07-27 11:57 | DVHPN2 ---
Progress Note - Dictate Date Seen: Jul 27, 2025 Has the PT tested + for MRSA If YES, has PT been informed?: No Medical Necessity Reason Pt with a Central, PICC or Fol: No vital signs Vital Sign Date Time Temp Pulse Resp B/P (MAP) Pulse Ox O2 Delivery O2 Flow Rate FiO2 07/27/25 10:24 109/50 07/27/25 09:55 87 22 99 30 07/27/25 08:45 98.6 209.5 07/27/25 08:00 Mechanical Ventilator+ Total Intake and Output 07/26/25 07/26/25 07/27/25 15:00 23:00 07:00 Intake Total 825.0 ml 975.0 ml 1013.25 ml Output Total 600 ml 1100 ml Balance 825.0 ml 375.0 ml -86.75 ml medications Current Medications Medications Dose Ordered Sig/Lizabeth Route Start Time Stop Time Status Last Admin Dose Admin Ondansetron HCl 4 mg Q4HP PRN IV 07/22/25 15:00 Nitroglycerin 0.4 mg Q5MINP PRN SL 07/22/25 15:00 Ceftriaxone Sodium 50 ml @ 100 mls/hr DAILY IV 07/22/25 15:00 07/27/25 10:25 100 MLS/HR Diagnostic Test (Pha) 1 strip ACHS 07/22/25 17:00 07/27/25 06:30 1 STRIP Insulin Human Regular ACHS SC 07/22/25 17:00 07/27/25 06:32 2 UNITS Dextrose 50 ml UD PRN IV 07/22/25 16:30 Acetaminophen 500 mg Q6HP PRN PO 07/23/25 17:45 07/25/25 01:52 500 MG Docusate Sodium 100 mg BID PO 07/23/25 22:00 07/26/25 21:31 100 MG Memantine 5 mg HS PO 07/23/25 22:00 07/26/25 21:32 5 MG Empaglifozin 25 mg DAILY PO 07/24/25 10:00 07/27/25 10:24 25 MG Midazolam HCl 100 ml @ 1 mls/hr Q24H IV 07/24/25 02:45 07/27/25 03:33 10 MLS/HR Fentanyl Citrate 250 ml @ 2.5 mls/hr Q24H IV 07/24/25 02:45 07/27/25 03:38 30 MLS/HR Midazolam HCl 100 ml @ 1 mls/hr Q24H IV 07/24/25 02:45 Cancel Fentanyl Citrate 250 ml @ 2.5 mls/hr Q24H IV 07/24/25 02:45 Cancel Phenylephrine HCl 250 ml @ 30 mls/hr Q8H20M IV 07/24/25 04:45 Atorvastatin Calcium 40 mg HS PO 07/24/25 22:00 07/26/25 21:31 40 MG Aspirin 81 mg DAILY PO 07/25/25 10:00 07/25/25 10:03 81 MG Enteral Nutritional Formula 1,000 ml 30ML/HR GT 07/25/25 09:30 07/26/25 18:28 1,000 ML Furosemide 20 mg DAILY IV 07/25/25 10:00 07/27/25 10:24 20 MG Pantoprazole Sodium 40 mg DAILY IV 07/25/25 10:00 07/27/25 10:25 40 MG Mupirocin 1 applic BID EACHNOSTRI 07/25/25 10:00 07/30/25 09:59 07/27/25 10:25 1 APPLIC Purified Water 100 ml Q6HR GT 07/25/25 12:00 07/27/25 05:12 100 ML Norepinephrine Bitartrate 250 ml @ 3.75 mls/hr Q24H IV 07/25/25 10:45 07/27/25 03:34 26.25 MLS/HR Amiodarone HCl 200 mg Q12HR GT 07/25/25 22:00 07/27/25 10:25 200 MG Apixaban 2.5 mg BID PO 07/26/25 22:00 07/26/25 21:31 2.5 MG laboratory and microbiology Laboratory Tests 07/27/25 11:12 07/27/25 02:20 Test 07/27/25 02:20 Range/Units Serum Glucose 155 H 74-106 mg/dL Assessment/Plan ICU rounds 80 yo male, s/p cardiac arrest acute hypoxemic resp failure pulm congestion CHF seen and examined on ICU intubated sedated ac volume control 18/500/5-30% abg hypecapnea 7.23/52/73 adjustments made to the vent CXR: pul edema cx negatoive management plan nmicrase rate cont diuresis cont abx sedation holiday \if follows commands start weaning from the vent cont nutrition monitor renal function etc dvt proph full code crit care time 35 min Plan discussed with: Other (rn) JHON COLBY MD Jul 27, 2025 11:57
--- NOTE | 2025-07-27 12:09 | DVHINCON2 ---
Date of service: Jul 27, 2025 Family History: Colon cancer G8 MOTHER (UNKNOWN CANCER) G8 FATHER (UNKNOWN CANCER) Allergies: Coded Allergies: NO KNOWN ALLERGIES (Unverified , 03/12/20) Home Meds Reported Medications Docusate Sodium (Colace) 100 Mg Cap, 1 CAP PO BID, #30 CAP 07/23/25 Lisinopril (Lisinopril) 20 Mg Tab, 0.5 TAB PO DAILY, #30 TAB 5 Refills 07/23/25 Atorvastatin Calcium (ATORVASTATIN CALCIUM) 10 Mg Tab, 1 TAB PO DAILY, #30 TAB 5 Refills 07/23/25 Memantine Hydrochloride (Memantine HCl) 5 Mg Tab, 5 MG PO HS, TAB 07/23/25 Benzonatate (Benzonatate) 200 Mg Cap, 1 CAP PO TID, #30 CAP 07/23/25 Furosemide (Furosemide) 20 Mg Tab, 1 TAB PO DAILY, #90 TAB 1 Refill 07/23/25 Apixaban Base (ELIQUIS) 5 Mg Tab, 5 MG PO BID, TAB 07/23/25 Empagliflozin (Jardiance) 25 Mg Tab, 25 MG PO DAILY, TAB 07/23/25 Acetaminophen (Tylenol Extra Strength) 500 Mg Tab, 500 MG PO Q6HP PRN for PAIN, TAB 03/12/20 Current Medications Current Medications Medications (Trade) Dose Ordered Sig/Lizabeth Route PRN Reason Start Time Stop Time Status Last Admin Apixaban (Eliquis) 2.5 mg BID PO 07/26/25 22:00 07/26/25 21:31 Vital Signs Vital Signs Date Time Temp Pulse Resp B/P (MAP) Pulse Ox O2 Delivery O2 Flow Rate FiO2 07/27/25 11:54 126/52 07/27/25 09:55 87 22 99 30 07/27/25 08:45 98.6 209.5 07/27/25 08:00 Mechanical Ventilator+ Labs/Diagnostic Data Labs Test 07/27/25 11:12 07/27/25 07:10 07/27/25 06:20 07/27/25 02:20 Range/Units White Blood Count 10.4 4.4-10.8 10^3/uL Red Blood Count 4.92 4.5-5.90 10^6/uL Hemoglobin 15.8 13.5-17.5 g/dL Hematocrit 48.4 41.0-53.0 % Mean Corpuscular Volume 98.4 80.0-100.0 fL Mean Corpuscular Hemoglobin 32.2 H 28.0-32.0 pg Mean Corpuscular Hemoglobin Concent 32.7 32.0-36.0 g/dL Red Cell Distribution Width 14.0 11.8-14.3 % Platelet Count 143 140-450 10^3/uL Mean Platelet Volume 8.4 6.9-10.8 fL Neutrophils (%) (Auto) 74.8 37.0-80.0 % Lymphocytes (%) (Auto) 11.0 10.0-50.0 % Monocytes (%) (Auto) 13.2 H 0.0-12.0 % Eosinophils (%) (Auto) 0.6 0.0-7.0 % Basophils (%) (Auto) 0.4 0.0-2.0 % Neutrophils # (Auto) 7.8 1.6-8.6 10 ^3/uL Lymphocytes # (Auto) 1.2 0.4-5.4 10 ^3/uL Monocytes # (Auto) 1.4 H 0-1.3 10 ^3/uL Eosinophils # (Auto) 0.1 0-0.8 10 ^3/uL Basophils # (Auto) 0 0-0.2 10 ^3/uL Nucleated Red Blood Cells 0.1 % Blood Gas Specimen Type Arterial Blood Gas Sample Site Left radial Blood Gas Patient Temperature 30.0 Arterial Blood Date Drawn [id number] Arterial Blood pH 7.234 *L 7.350-7.450 Arterial Blood Partial Pressure CO2 52.5 H 35.0-48.0 mmHg Arterial Blood Partial Pressure O2 72.8 L 83.0-108.0 mmHg Arterial Blood HCO3 21.7 21.0-28.0 mmol/L Arterial Blood Oxygen Saturation 93.1 L 94.0-98.0 % Arterial Blood Base Excess -6.4 L -2.0-3.0 mmol/L Arterial Blood Oxyhemoglobin 91.1 L 94.0-98.0 % Arterial Blood Carboxyhemoglobin 1.6 H 0.5-1.5 % Arterial Blood Methemoglobin 0.5 0.0-1.5 % Arterial Blood Deoxyhemoglobin 6.8 H 0.0-5.0 % Brennan Test Modified Blood Gas Total Hemoglobin 16.90 13.5-17.5 g/dL Blood Gas Set Respiration Rate 16.0 Blood Gas Modality Vent - ac FiO2 % 30.0 Blood Gas Tidal Volume 550.0 Blood Gas PEEP or CPAP 5.0 Blood Gas Critical Value Read Back yes Blood Gas Notified Whom adams short Blood Gas Notified Time [id number] Blood Gas Notified By ej morales POC Glucose 153 H 70-106 mg/dl Sodium Level 140 136-145 mmol/L Potassium Level 4.2 3.5-5.1 mmol/L Chloride Level 105 98-107 mmol/L Carbon Dioxide Level 22 20-31 mmol/L Anion Gap 13 5-15 Blood Urea Nitrogen 33 H 9-23 mg/dL Creatinine 1.22 0.700-1.30 mg/dL Glomerular Filtration Rate Calc 60 >90 mL/min BUN/Creatinine Ratio 27.0 H 10.0-20.0 Serum Glucose 155 H 74-106 mg/dL Calcium Level 8.5 L 8.7-10.4 mg/dL Creatine Kinase 346 H 46-171 U/L Test 07/26/25 03:25 07/25/25 03:05 07/24/25 14:47 07/24/25 08:30 Range/Units Prothrombin Time 12.5 H 9.3-11.8 sec Prothrombin Time INR 1.20 H 0.9-1.15 Activated Partial Thromboplast Time 38.4 H 24.5-34.5 SEC Erythrocyte Sedimentation Rate 3 0-20 mm/hr Total Bilirubin 0.8 0.2-1.0 mg/dL Aspartate Amino Transferase (AST) 45 H 13-40 U/L Alanine Aminotransferase (ALT) 42 H 7-40 U/L Alkaline Phosphatase 68 46-116 U/L Troponin I High Sensitivity 657 *H </=54 ng/L C-Reactive Protein High Sensitivity 3.74 H <1.0 mg/dL B-Type Natriuretic Peptide 13.17 0-100 pg/mL Total Protein 7.9 5.7-8.2 g/dL Albumin 4.2 3.2-4.8 g/dL Ammonia 20 11-32 umol/L Vitamin B12 Level 1658 H 211-911 pg/mL Triglycerides Level 100 < 150 mg/dL Cholesterol Level 103 < 200 mg/dL LDL Cholesterol 42 < 100 mg/dL HDL Cholesterol 47 40-59 mg/dL Thyroid Stimulating Hormone (TSH) 1.34 0.55-4.78 uIU/mL Test 07/24/25 03:20 07/23/25 06:28 07/22/25 17:07 07/22/25 10:51 Range/Units D-Dimer, Quantitative 0.87 H 0.0-0.49 mg/L FEU Hemoglobin A1c 7.8 H <5.7 % A1C Phosphorus Level 4.0 2.4-5.1 mg/dL Magnesium Level 2.4 1.6-2.6 mg/dL Hepatitis B Surface Antigen Negative Negative Hepatitis C Antibody Negative Negative Influenza Type A Antigen Negative Negative Influenza Type B Antigen Negative Negative SARS-CoV-2 Antigen (Rapid) Negative NEGATIVE Urine Color Light-yellow Yellow Urine Clarity Clear Clear Urine pH 5.5 5.0-9.0 Urine Specific Cameron 1.025 1.001-1.035 Urine Protein Negative Negative Urine Ketones Negative Negative Urine Blood 2+ H Negative /uL Urine Nitrite Negative Negative Urine Bilirubin Negative Negative Urine Urobilinogen Normal Negative mg/dL Urine Leukocyte Esterase Negative Negative /uL Urine RBC 57 0 - 3 /hpf Urine Microscopic WBC 11 H 0-3 /HPF Urine Squamous Epithelial Cells None seen <5 /hpf Urine Bacteria None seen None Seen /hpf Urine Glucose 4+ H Normal mg/dL Test 07/22/25 09:31 Range/Units Lactic Acid Level 1.8 0.4-2.0 mmol/L Microbiology Date/Time Source Procedure Growth Status 07/24/25 03:35 Urine - [place] Urine Culture - Final Complete 07/24/25 03:26 Trachea Gram Stain - Final Resulted 07/24/25 03:26 Trachea Respiratory Culture - Preliminary Resulted 07/22/25 09:53 Blood Blood Culture - Final NO GROWTH AFTER 5 DAYS OF INCUBATION. Complete Problems(with codes): (1) Fever (2) Acute hypoxic respiratory failure (3) Shock (4) Acute metabolic encephalopathy (5) Generalized weakness (6) Chest pain of unknown etiology (7) Atrial fibrillation Plan/Recommendation ASSESSMENT AND PLAN: ID Problem List: -Altered mental status with decreased level of consciousness -Intermittent fevers during hospitalization (onset ~07/24, peak 102F on 07/25) -Leukocytosis (harry to 11.9 on 07/26) -Atrial fibrillation/atrial flutter; s/p pacemaker placement (06/27, [facility]) -Hypertension -Possible community-acquired pneumonia vs atypical/viral pneumonia (no clear focal consolidation on CXR) -Possible drug fever (ceftriaxone; consider other recent medications) -Elevated troponin (657 on 07/24) and bundle branch block on EKG -Cardiomegaly with pulmonary vascular congestion on chest imaging -Intubated 07/23; on fentanyl infusion; on vasopressor support (norepinephrine) -Aortic systolic ejection murmur -Left shoulder blister, scabbed -Obesity (BMI 35.6) -Former alcohol use disorder; former smoker Assessment This is a male with a history of atrial fibrillation/atrial flutter, hypertension, former heavy alcohol use (currently abstinent), former smoker, and pacemaker placement on 06/27 who presented with decreased level of consciousness after several days of pacemaker-detected arrhythmias. Admission vitals were stable without initial fever; he subsequently developed fevers beginning ~07/24 peaking at 102F on 07/25, then trending down. He was intubated on 07/23, now on minimal ventilator support; he remains on norepinephrine (14 mcg) with improving blood pressures over 2448 hours. Cultures (blood, urine) have been negative to date; tracheal/respiratory culture shows normal oropharyngeal chely. Chest imaging demonstrates cardiomegaly and moderate pulmonary vascular congestion without a clear focal pneumonia. EKG shows a bundle branch block and troponin harry to 657 on 07/24. Leukocytosis increased to 11.9 on 07/26. UA shows mild pyuria (11 WBC), negative LE/nitrites, no bacteria, and 4+ glucosuria; urine cultures negative. Head CT shows no acute intracranial process; renal ultrasound without hydronephrosis. Differential for fevers and leukocytosis includes atypical/viral pneumonia, drug fever (ceftriaxone; also consider recent furosemide, increased statin dose, amiodarone), venous thromboembolism with pos sible inflammatory fever, aspiration pneumonitis, and noninfectious ischemic hepatopathy in the context of critical illness and elevated troponin. Plan: -Antimicrobials: -Stop ceftriaxone to reduce risk of drug fever. -Do not add azithromycin at this time. -Start doxycycline for empiric community-acquired/atypical pneumonia coverage. -Diagnostics: -HIV screening test. -Bilateral lower extremity venous Doppler ultrasonography to evaluate for DVT as a potential fever source. -Fever/Leukocytosis: -Monitor fever curve; note that resolution may take several days if drug fever- related. -Continue to monitor WBC trend and clinical status. -Respiratory: -Continue ventilatory weaning as tolerated; monitor for signs of aspiration or evolving pneumonia. -Repeat chest imaging as clinically indicated. -Cardiovascular: -Continue amiodarone per cardiology. -Trend troponins. -Maintain adequate perfusion; coordinate with cardiology regarding vasopressor/inotrope strategy (cardioselective agents as appropriate). -Renal/Volume: -Monitor urine output (reported ~1,300 cc/day); continue diuresis with furosemide as clinically indicated. -Supportive care: -Antipyretics as needed (acetaminophen given once on 07/24). -Continue ICU-level monitoring and supportive measures. -Infection prevention: -No evidence for catheter- or skin-source infection on current exam; continue routine line care and skin assessments. Authorized and Performed by: ruddy boyle Total critical care time: Approximately 76 minutes Due to a high probability of clinically significant, life threatening deterioration, the patient required my highest level of preparedness to intervene emergently and I personally spent this critical care time directly and personally managing the patient. This critical care time included obtaining a history; examining the patient; pulse oximetry; ordering and review of studies; arranging urgent treatment with development of a management plan; evaluation of patient's response to treatment; frequent reassessment; and, discussions with other providers. This critical care time was performed to assess and manage the high probability of imminent, life-threatening deterioration that could result in multi-organ failure. It was exclusive of separately billable procedures and treating other patients and teaching time. Isolation Precautions: standard \*Assessment and plan was discussed with the care team as written above. \*Plan is subject to change pending incorporation of new incoming information/diagnostics. Updates may be added as addendum at the bottom (OR TOP) of this note. Thank you for the consult. Infectious Diseases will continue to follow. Please contact Infectious Disease for any questions or concerns. Electronically signed by: Ruddy Boyle MD, 07/27/2025 History: The patient's chart and available medications were reviewed in detail and the patient was seen and examined. History obtained from: chart review and care team; patient is a poor historian due to lethargy/intubation. Venancio Renee is a male with a history of atrial fibrillation/atrial flutter, hypertension, former heavy alcohol use (currently not drinking), former smoker (currently not smoking), and pacemaker placement on 06/27 at [facility], who presents with decreased level of consciousness following several days of pacemaker-detected arrhythmias. Pre-hospital course notable for incoherence and decreased alertness leading to EMS activation. ED management included empiric ceftriaxone and nitroglycerin/morphine for presumed UTI and evaluation of arrhythmia/possible NSTEMI. Initial temperature ~98F, BP 138/87, HR 70, RR 12, SpO2 93% on room air. Hospital course: -Intubated on 07/23; FiO2 initially 60%, now minimal ventilator support. On fentanyl infusion for sedation/analgesia; intermittent additional sedation reported. On norepinephrine (14 mcg). -Fevers began ~07/24 (peaked at 102F on 07/25), then down-trending with intermittent temps to 100.4100.6 on . -Cultures: Blood cultures no growth to date after 5 days; urine culture negative; respiratory/tracheal culture with normal oropharyngeal chely; repeat urine culture also negative. -Labs: WBC 7.1 on arrival, increased to 11.9 on 07/26; Hgb 18.5 on arrival, 17.5 on 07/26; platelets ~[id number]. Glucose 111; lactate 1.8; BNP 39.62. Hemoglobin A1c 7.8. Troponin harry to 657 on 07/24. AST increased; ALT 42; alkaline phosphatase 68. UA with mild pyuria (11 WBC), negative leukocyte esterase and nitrites, no bacteria seen, 4+ glucose. -Imaging: Chest X-ray on admission with cardiomegaly and pulmonary vascular congestion; repeat CXRs on with moderate pulmonary vascular congestion, no clear focal pneumonia. Head CT: no acute intracranial abnormality. Renal ultrasound: no hydronephrosis. -Cardiac: EKG with bundle branch block. Amiodarone started 07/25; atorvastatin dose increased; furosemide 20 mg started 07/24. Urine output ~1,300 cc/day. Additional history: -Past surgery: cholecystectomy (remote). -Lives with his son. -[place]; receives care through the [facility]. Review of Systems: Limited due to intubation and lethargy. Additional review of systems not discussed beyond HPI details. Past Medical History: -Atrial fibrillation -Atrial flutter -Hypertension -Former alcohol use disorder (currently abstinent) -Pacemaker placement (06/27) Past Surgical History: -Cholecystectomy (remote) Home Medications: -Not provided in transcript. Allergies: -Not provided in transcript. Family History: -Not provided in transcript. Social History: -Lives with son -[place]; follows at [facility] ([facility]) -Former heavy alcohol use; currently not drinking -Former smoker; currently not smoking -Denies IV drug use or other substance abuse (per transcript) Objective: Vital Signs on Arrival: -Temp: 97.998F -BP: 138/87 mmHg -Pulse: 70 bpm -Resp: 12/min -SpO2: 93% on room air Most Recent Vital Signs: -Not provided in transcript. Admission Weight and BMI: -Weight: Not provided in transcript. -BMI: 35.6 kg/m Physical Exam: General: NAD Neck: Supple. No masses. HEENT: PERRL. Normal lids and conjunctiva. Moist mucous membranes. Oropharynx wi thout lesions, exudates or excessive erythema. Normal appearance of the external aspects of the nose and ears. Heart: Regular rhythm, normal rate. Aortic systolic ejection murmur present. No lower extremity edema noted. Lungs: Normal respiratory effort. Clear to auscultation bilaterally. No wheezes. No crackles. Abdomen: Soft. Non-tender. Non-distended. Normal bowel sounds. No masses or abdominal hernia. Msk: No digital cyanosis. Normal tone in all 4 limbs. Skin: Warm and dry, no rashes. Left shoulder blister with scab. Neuro: Lethargic but oriented to person, place, and time when arousable. No facial droop or slurred speech. Extra-ocular movements intact. Sensation intact to soft touch in all 4 limbs. Decreased strength in upper and lower extremities. Psych: Appropriate mood. Full affect when interactive. Oriented to person, place, time, and situation when arousable. Lines: -Endotracheal tube (placed 07/23 per transcript). -Other vascular access lines: Not provided in transcript. Diagnostic Studies: Available diagnostic studies were reviewed personally. Significant relevant results and findings are outlined below or addressed in the Assessment and Plan above. Pertinent Imaging: -Chest X-ray (admission): Cardiomegaly with pulmonary vascular congestion. -Chest X-rays (07/24 and 07/25): Moderate pulmonary vascular congestion; no clear focal pneumonia. -Head CT: No acute intracranial abnormality. -Renal ultrasound: Unremarkable; no hydronephrosis. Microbiology: -Blood cultures: No growth to date after 5 days. -Urine culture: Negative. -Respiratory/tracheal culture (07/24): Normal oropharyngeal chely. -Repeat urine culture: Negative. Cardiac Studies/Labs (selected): -EKG: Bundle branch block. -Troponin: 657 on 07/24. -BNP: 39.62. -Hemoglobin A1c: 7.8. -WBC: 7.1 on arrival; harry to 11.9 on 07/26. -Hgb: 18.5 on arrival; 17.5 on 07/26. -Platelets: ~[id number]. -UA: 11 WBC/HPF (mild pyuria); negative LE; negative nitrites; no bacteria; 4+ glucose. -Lactic acid: 1.8. -AST elevated (value not specified); ALT 42; alkaline phosphatase 68. -Glucose: 111. Plan discussed with: Patient RUDDY BOYLE MD Jul 27, 2025 12:09
[2025-07-27] MEDS: ACETAMINOPHEN 650 mg PER 20.3 mL UD NG ONE (13:51)
[2025-07-27] MEDS: DOXYCYCLINE 100MG/100ML 100 ML IV SCH (13:57)
--- NOTE | 2025-07-27 15:04 | DVH ---
BILATERAL LOWER EXTREMITY VENOUS DUPLEX REASON FOR EXAMINATION: Bilateral lower extremity pain and edema. evaluate for DVT COMPARISON: None TECHNIQUE: Using real-time freeze-frame technique with a high-frequency transducer, multiple longitudinal and transverse sections were obtained. Simultaneous color flow and spectral Doppler imaging was performed. The deep veins from the popliteal fossa to the groin were evaluated. FINDINGS: There is good visualization of the deep venous system with no intraluminal filling defects identified. Normal venous compressibility is seen and there is flow augmentation. Color flow Doppler imaging is unremarkable. IMPRESSION: NO EVIDENCE OF FEMOROPOPLITEAL DEEP VENOUS THROMBOSIS.
--- NOTE | 2025-07-27 15:26 | DVHPNRES ---
Progress Note Date Seen: Jul 27, 2025 Resident Creating Document: BRANDO SUBRAMANIAN RESIDENT Has the PT tested + for MRSA If YES, has PT been informed?: No Medical Necessity Reason Pt with a Central, PICC or Fol: No Subjective Review of Systems Patient seen and examined at bedside. Patient is currently sedated and mechanically ventilator on the following ventilatory parameters: VT 550, FiO2 30%, peep five, saturating 98%. Spoke directly with the son which is the power of extruding press adjuster of the patient. Son was very upset, since nobody apparently updated him regarding the coronary angiogram. Upon further investigation, primary team did updated him the day before but he wanted update from Cardiology directly. The son is very upset with nursing staff because apparently they did not wanted to give further information via phone regarding the coronary angiogram. I personally explained in detail coronary angiogram results and all current medical management at this time. Patient feels has a very mild swelling on bilateral lower extremities last echocardiogram showed an LVEF of 40%. Coronary angiogram was performed on 07/26/2025 with LAD having 70% stenosis but no stent was placed at that time, cardiology recommended continue medical therapy. Patient is currently on Levophed 14, infectious Disease was consulted which stopped ceftriaxone believing that that could be the source of the fever and switch the patient to IV doxycycline which will cover both atypical pneumonia/viral also MRSA which was positive in the nares. We will continue IV doxycycline at this time. Nurse also reported slight bleeding from the right- sided central line which has been going on in the past three days. We will hold aspirin and Eliquis at this time since hemoglobin has been slightly going down very slowly. Meanwhile, shipping and receiving coordinator to try sedation vacation to see how patient responds neurologically and try possibility of CPAP trials in the near future. Long discussion was done at bedside with the son, all questions and concerns were addressed and answered. Son agrees and understands the plan. ROS unable to obtain due to patient's current status. Objective vital signs Vital Sign Date Time Temp Pulse Resp B/P (MAP) Pulse Ox O2 Delivery O2 Flow Rate FiO2 07/27/25 14:45 99.7 70 24 108/49 (68) 97 211.5 07/27/25 14:00 Mechanical Ventilator+ 30 30 Total Intake and Output 07/26/25 07/26/25 07/27/25 15:00 23:00 07:00 Intake Total 825.0 ml 975.0 ml 1013.25 ml Output Total 600 ml 1100 ml Balance 825.0 ml 375.0 ml -86.75 ml medications Current Medications Medications Dose Ordered Sig/Lizabeth Route Start Time Stop Time Status Last Admin Dose Admin Ondansetron HCl 4 mg Q4HP PRN IV 07/22/25 15:00 Nitroglycerin 0.4 mg Q5MINP PRN SL 07/22/25 15:00 Diagnostic Test (Pha) 1 strip ACHS 07/22/25 17:00 07/27/25 11:30 1 STRIP Insulin Human Regular ACHS SC 07/22/25 17:00 07/27/25 12:52 2 UNITS Dextrose 50 ml UD PRN IV 07/22/25 16:30 Acetaminophen 500 mg Q6HP PRN PO 07/23/25 17:45 07/25/25 01:52 500 MG Docusate Sodium 100 mg BID PO 07/23/25 22:00 07/26/25 21:31 100 MG Memantine 5 mg HS PO 07/23/25 22:00 07/26/25 21:32 5 MG Empaglifozin 25 mg DAILY PO 07/24/25 10:00 07/27/25 10:24 25 MG Midazolam HCl 100 ml @ 1 mls/hr Q24H IV 07/24/25 02:45 07/27/25 12:43 10 MLS/HR Fentanyl Citrate 250 ml @ 2.5 mls/hr Q24H IV 07/24/25 02:45 07/27/25 11:54 30 MLS/HR Midazolam HCl 100 ml @ 1 mls/hr Q24H IV 07/24/25 02:45 Cancel Fentanyl Citrate 250 ml @ 2.5 mls/hr Q24H IV 07/24/25 02:45 Cancel Phenylephrine HCl 250 ml @ 30 mls/hr Q8H20M IV 07/24/25 04:45 Atorvastatin Calcium 40 mg HS PO 07/24/25 22:00 07/26/25 21:31 40 MG Aspirin 81 mg DAILY PO 07/25/25 10:00 07/25/25 10:03 81 MG Enteral Nutritional Formula 1,000 ml 30ML/HR GT 07/25/25 09:30 07/26/25 18:28 1,000 ML Furosemide 20 mg DAILY IV 07/25/25 10:00 07/27/25 10:24 20 MG Pantoprazole Sodium 40 mg DAILY IV 07/25/25 10:00 07/27/25 10:25 40 MG Mupirocin 1 applic BID EACHNOSTRI 07/25/25 10:00 07/30/25 09:59 07/27/25 10:25 1 APPLIC Purified Water 100 ml Q6HR GT 07/25/25 12:00 07/27/25 13:30 100 ML Norepinephrine Bitartrate 250 ml @ 3.75 mls/hr Q24H IV 07/25/25 10:45 07/27/25 12:42 26.25 MLS/HR Amiodarone HCl 200 mg Q12HR GT 07/25/25 22:00 07/27/25 10:25 200 MG Apixaban 2.5 mg BID PO 07/26/25 22:00 07/26/25 21:31 2.5 MG Azithromycin 250 ml @ 125 mls/hr DAILY IV 07/28/25 10:00 Cancel Doxycycline Hyclate 100 ml @ 50 mls/hr Q12H IV 07/27/25 13:15 07/27/25 13:57 50 MLS/HR Examination Physical Examination General: Patient is sedated and intubated on following mechanical ventilatory settings: VT 550, FiO2 30%, peep five, saturating 98%. HEENT: Normocephalic, atraumatic, moist mucous membranes Respiratory/pulmonary: There is bilateral decrease in breath sounds likely due to body habitus, no significant crackles or wheezes present. Cardiovascular: Normal heart sounds S1 and S2 with no associated murmurs Abdomen: Abdomen nondistended, there is no pain to palpation in any of the abdominal quadrants, no palpable masses. Extremities: There is very mild bilateral lower extremity swelling 1+. Skin: No rashes or pruritus, there is no sacral edema present at this time. Neurological: RASS -3 laboratory and microbiology Laboratory Tests 07/27/25 11:12 07/27/25 02:20 Test 07/27/25 02:20 Range/Units Serum Glucose 155 H 74-106 mg/dL Microbiology Date/Time Source Procedure Growth Status 07/24/25 03:35 Urine - [place] Urine Culture - Final Complete 07/24/25 03:26 Trachea Gram Stain - Final Complete 07/24/25 03:26 Trachea Respiratory Culture - Final Complete 07/22/25 09:53 Blood Blood Culture - Final NO GROWTH AFTER 5 DAYS OF INCUBATION. Complete Labs and/or images reviewed: Labs reviewed by me, Image(s) reviewed by me Problem List/Assessment/Plan Problem List/Assessment/Plan Assessment/plan Acute metabolic encephalopathy Acute hypoxic respiratory failure likely in the setting of acute on chronic systolic heart failure HFrEF 40% Status post coronary angiogram on 07/26/2025 (lad 70% stenosed, no stent placed) Acute Gram-positive/Gram-negative bacterial pneumonia Possible atypical/viral pneumonia Septic shock likely due to above NSTEMI likely type 2 due to above Questionable seizure activity with postictal state Atrial flutter with controlled rate Recent placement of dual-chamber pacemaker 06/27/2025 (michellemilady gupta) Plan -Stopped ceftriaxone per infectious disease recommendations, Possible drug induced fever -Start Doxycycline which will cover atypical/viral pneumonia as well as MRSA which was positive in the nares -last sputum cultures showed normal oropharyngeal chely. -last blood cultures and urine culture were negative -we will hold aspirin and Eliquis at this time due to oozing of blood through the right int yug central line. -urine output 1800 cc in the last 24 hours -maintain strict in's and out's -continue enteral nutrition at 20 cc/hour -stop IV fluids. -cardiology on board -neurology on board, pending EEG results Goals of care discussed with the son which is the power of extruding press adjuster at bedside for 20 minutes, FULL CODE 99 minutes of critical care time Plan discussed with Dr. Smith Plan discussed with: Son, Other (RN) Dietary Evaluation Review Comments: Nutrition Recommendation: 1) EN Glucerna 1.2Cal @ 55ml/hr x 24hr (goal) along with Pro-stat 1 pk TID. Water flush 50ml Q6H if allowed, adjust PRN. TF at goal volume along with Pro-stat provide 1884 kcal (100%), 124 gm protein (91%), and 1263 ml free water(including flush). 2) TPN if NPO >7 days 3) Monitor NPO status, lab values, weight trend, and I/O Expected Outcomes/Goals: Intake to meet >75% estimated needs Lab values to improve FU 2-3 days Date of Service: Jul 27, 2025 Billing Provider: JELLY SMITH MD Common Visit Codes: 98320-[id number] CARE 30-74 MIN (99 minutes), [id number] CARE-EACH +30MIN Secondary Visit Codes: [id number] CARE PLAN 30 MINUTES (20 minutes) BRANDO SUBRAMANIAN RESIDENT Jul 27, 2025 15:26 JELLY SMITH MD Jul 31, 2025 10:43
[2025-07-27] MEDS: IODIXANOL 320MG/ML 100ML BTL IV ONE (21:49)
[2025-07-28] VITALS (105 sets, daily range): BP systolic 80–140; BP diastolic 43–82; PULSE 70–81; RESP 24; TEMP 98.1–100.4; O2SAT 93–100
--- NOTE | 2025-07-28 00:35 | DVHPN2 ---
Progress Note - Dictate Date Seen: Jul 27, 2025 Has the PT tested + for MRSA If YES, has PT been informed?: No Medical Necessity Reason Pt with a Central, PICC or Fol: No Subjective Patient was seen and evaluated in follow up in the ICU. Patient is intubated and sedated on ventilator. 30% FiO2. Patient is on vasopressors for hemodynamic support. MRSA is positive. Creatinine kinase 346. Urine culture showed no growth. Chest x-ray shows bilateral patchy airspace opacities, small bilateral pleural effusions. BLE Venous Duplex is negative for DVT. vital signs Vital Sign Date Time Temp Pulse Resp B/P (MAP) Pulse Ox O2 Delivery O2 Flow Rate FiO2 07/28/25 00:15 98.2 70 24 125/77 (93) 98 208.8 07/28/25 00:00 Mechanical Ventilator+ 30 30 Total Intake and Output 07/27/25 07/27/25 07/28/25 15:00 23:00 07:00 Intake Total 610.00 ml 570.75 ml Output Total 1675 ml Balance 610.00 ml -1104.25 ml medications Current Medications Medications Dose Ordered Sig/Lizabeth Route Start Time Stop Time Status Last Admin Dose Admin Ondansetron HCl 4 mg Q4HP PRN IV 07/22/25 15:00 Nitroglycerin 0.4 mg Q5MINP PRN SL 07/22/25 15:00 Diagnostic Test (Pha) 1 strip ACHS 07/22/25 17:00 07/27/25 22:53 1 STRIP Insulin Human Regular ACHS SC 07/22/25 17:00 07/27/25 17:45 2 UNITS Dextrose 50 ml UD PRN IV 07/22/25 16:30 Acetaminophen 500 mg Q6HP PRN PO 07/23/25 17:45 07/25/25 01:52 500 MG Docusate Sodium 100 mg BID PO 07/23/25 22:00 07/26/25 21:31 100 MG Memantine 5 mg HS PO 07/23/25 22:00 07/27/25 23:00 5 MG Empaglifozin 25 mg DAILY PO 07/24/25 10:00 07/27/25 10:24 25 MG Midazolam HCl 100 ml @ 1 mls/hr Q24H IV 07/24/25 02:45 07/27/25 12:43 10 MLS/HR Fentanyl Citrate 250 ml @ 2.5 mls/hr Q24H IV 07/24/25 02:45 07/27/25 11:54 30 MLS/HR Midazolam HCl 100 ml @ 1 mls/hr Q24H IV 07/24/25 02:45 Cancel Fentanyl Citrate 250 ml @ 2.5 mls/hr Q24H IV 07/24/25 02:45 Cancel Phenylephrine HCl 250 ml @ 30 mls/hr Q8H20M IV 07/24/25 04:45 Atorvastatin Calcium 40 mg HS PO 07/24/25 22:00 07/27/25 23:00 40 MG Aspirin 81 mg DAILY PO 07/25/25 10:00 07/25/25 10:03 81 MG Enteral Nutritional Formula 1,000 ml 30ML/HR GT 07/25/25 09:30 07/26/25 18:28 1,000 ML Furosemide 20 mg DAILY IV 07/25/25 10:00 07/27/25 10:24 20 MG Pantoprazole Sodium 40 mg DAILY IV 07/25/25 10:00 07/27/25 10:25 40 MG Mupirocin 1 applic BID EACHNOSTRI 07/25/25 10:00 07/30/25 09:59 07/27/25 23:01 1 APPLIC Purified Water 100 ml Q6HR GT 07/25/25 12:00 07/28/25 00:20 100 ML Norepinephrine Bitartrate 250 ml @ 3.75 mls/hr Q24H IV 07/25/25 10:45 07/27/25 12:42 26.25 MLS/HR Amiodarone HCl 200 mg Q12HR GT 07/25/25 22:00 07/27/25 23:00 200 MG Apixaban 2.5 mg BID PO 07/26/25 22:00 07/26/25 21:31 2.5 MG Azithromycin 250 ml @ 125 mls/hr DAILY IV 07/28/25 10:00 Cancel Doxycycline Hyclate 100 ml @ 50 mls/hr Q12H IV 07/27/25 13:15 07/27/25 13:57 50 MLS/HR objective GENERAL: Ill appearing, intubated and sedated on ventilator. EYES: PERRL, EOMI. Anicteric. HENT: Moist mucous membranes. LUNGS: Crackles to bilateral breath sounds. CARDIOVASCULAR: Irregular rate and rhythm. ABDOMEN: Soft, non-tender and non-distended. EXTREMITIES: No edema. SKIN: Warm, dry. laboratory and microbiology Laboratory Tests 07/27/25 11:12 07/27/25 02:20 Test 07/27/25 02:20 Range/Units Serum Glucose 155 H 74-106 mg/dL Problem List Non ST-elevation myocardial infarction, questionable type 1. Paroxysmal atrial fibrillation/atrial flutter, now NSR (on Eliquis therapy at home). [place] decompensated HFrEF, NYHA Class III. Presence of dual-chamber pacemaker ([employer]). Acute hypoxic respiratory failure. Diabetes mellitus, newly diagnosed. Hypertension. Dyslipidemia. Former smoker/alcoholic. Obesity. Assessment/Plan Continued all current supportive medical care. Amiodarone. Eliquis. Aspirin, Lipitor. IV antibiotics as ordered. Diuretics with Lasix. Nitro SL. GI prophylactics. Additional plan as per the hospital course. Critical care time of 45 minutes provided to include time spent evaluation of patient at bedside, when appropriate patient/family education for diagnosis, treatment plan, review of pertinent medical information and discussion of care with specialty providers and PCP. Mechanical ventilator parameters, treatment and adjustments have personally been reviewed by me and treatment plan by bankman has also been reviewed. Dietary Evaluation Review Comments: Nutrition Recommendation: 1) EN Glucerna 1.2Cal @ 55ml/hr x 24hr (goal) along with Pro-stat 1 pk TID. Water flush 50ml Q6H if allowed, adjust PRN. TF at goal volume along with Pro-stat provide 1884 kcal (100%), 124 gm protein (91%), and 1263 ml free water(including flush). 2) TPN if NPO >7 days 3) Monitor NPO status, lab values, weight trend, and I/O Expected Outcomes/Goals: Intake to meet >75% estimated needs Lab values to improve FU 2-3 days Plan discussed with: ANUPAMA Coleman MD Jul 28, 2025 00:35
[2025-07-28 04:19] LABS: Hematocrit 46.9 % (41.0-53.0); Hemoglobin 15.9 g/dL (13.5-17.5); Mean Corpuscular Hemoglobin 32.6 pg (28.0-32.0); Mean Corpuscular Volume 96.6 fL (80.0-100.0); Nucleated Red Blood Cells % 0.0 %
[2025-07-28 04:37] LABS: Alanine Aminotransferase 29 U/L (7-40); Albumin 3.2 g/dL (3.2-4.8); Alkaline Phosphatase 70 U/L (46-116); Anion Gap 12 (5-15); BUN/Creatinine Ratio 26.3 (10.0-20.0); Carbon Dioxide 25 mmol/L (20-31); Chloride 107 mmol/L (98-107); Potassium 4.1 mmol/L (3.5-5.1); Sodium 144 mmol/L (136-145); Total Protein 6.2 g/dL (5.7-8.2)
[2025-07-28 04:38] LABS: Bilirubin, Total 0.8 mg/dL (0.2-1.0)
[2025-07-28 04:44] LABS: Bilirubin, Direct 0.3 mg/dL (<0.3); Blood Urea Nitrogen 25 mg/dL (9-23); Calcium 8.6 mg/dL (8.7-10.4); Glucose 129 mg/dL (74-106)
--- NOTE | 2025-07-28 05:00 | DVH ---
CHEST RADIOGRAPH Indication: review lung parenchyma Technique: Single frontal view of the chest was obtained Comparison: XY CHEST PORTABLE on DOS: 07/27/25, XY CHEST PORTABLE on DOS: 07/26/25, XY CHEST PORTABLE on DOS: 07/25/25 FINDINGS: Lines and Tubes: There is a right central venous catheter with the tip terminating in the superior cava the endotracheal tube terminates 4.0 cm above the de. The enteric tube courses below the left hemidiaphragm and the tip extends outside the field of view. Lungs: Bilateral increased interstitial prominence. Pleura: No effusion. No pneumothorax. Cardiomediastinal contours: Cardiomegaly Bones: No acute osseous abnormality. IMPRESSION: 1. Support tubes in appropriate position. 2. Cardiomegaly with bilateral increased interstitial prominence which may reflect pulmonary edema or atypical infection.
[2025-07-28 06:59] LABS: Base Excess -2.2 mmol/L (-2.0-3.0)
[2025-07-28] MEDS: DEXMEDETOMIDINE HCL IN D5W 100 ML IV SCH (09:00)
--- NOTE | 2025-07-28 09:42 | DVHPN2 ---
Subjective Patient intubated and sedated Reviewed: Care Plan, H&P, Labs, Medications Changes from previous H/P or p: No Changes General: Per HPI Eyes: No Pain, No Vision change, No Conjunctivae inflammation, No Eyelid inflammation, No Other, No Redness ENT: No Ear pain, No Ear discharge, No Nose pain, No Nose discharge, No Nose congestion, No Mouth pain, No Mouth swelling, No Throat pain, No Throat swelling, No Other Cardiovascular: No Chest Pain, No Palpitations, No Orthopnea, No Paroxysmal Noc. Dyspnea, No Edema, No Lt Headedness, No Other Respiratory: No Cough, No Dry, No Shortness of breath, No SOB with excertion, No Wheezing, No Hemoptysis, No Pleuritic Pain, No Sputum, No Other Gastrointestinal: No Nausea, No Vomiting, No Abdominal Pain, No Diarrhea, No Constipation, No Melena, No Hematochezia, No Other Genitourinary: Frequency, Incontinence Musculoskeletal: No other, No neck pain, No shoulder pain, No arm pain, No back pain, No hand pain, No leg pain, No foot pain Skin: No Rash, No Lesions, No Jaundice, No Bruising, No Other Objective Vitals Vital Signs Date Time Temp Pulse Resp B/P (MAP) Pulse Ox O2 Delivery O2 Flow Rate FiO2 07/28/25 09:32 70 24 97/57 (70) 98 30 07/28/25 07:00 100.4 212.7 07/28/25 06:00 Mechanical Ventilator+ Intake/Output Intake and Output 07/28/25 07:00 Intake Total 2287.25 ml Output Total 3475 ml Balance -1187.75 ml Intake Oral 310 ml IV Total 1575.25 ml Tube Feeding 402 ml Output Urine Total 3475 ml General Appearance: mild distress HEENT: Atraumatic, PERRLA Cardiovascular: Normal S1, Normal S2 Abdomen: Normal bowel sounds, Soft, No tenderness, No hepatospenomegaly Genitourinary: No Apparent Abnormalities ([place] catheter) Musculoskeletal: Other (Unable to assess) Skin: Dry, Intact Psych/Mental Status: Other (Unable to assess) Medications Current Medications Medications Dose Ordered Sig/Lizabeth Route Start Time Stop Time Status Last Admin Dose Admin Ondansetron HCl 4 mg Q4HP PRN IV 07/22/25 15:00 Nitroglycerin 0.4 mg Q5MINP PRN SL 07/22/25 15:00 Diagnostic Test (Pha) 1 strip ACHS 07/22/25 17:00 07/28/25 05:48 1 STRIP Insulin Human Regular ACHS SC 07/22/25 17:00 07/27/25 17:45 2 UNITS Dextrose 50 ml UD PRN IV 07/22/25 16:30 Acetaminophen 500 mg Q6HP PRN PO 07/23/25 17:45 07/25/25 01:52 500 MG Docusate Sodium 100 mg BID PO 07/23/25 22:00 07/26/25 21:31 100 MG Memantine 5 mg HS PO 07/23/25 22:00 07/27/25 23:00 5 MG Empaglifozin 25 mg DAILY PO 07/24/25 10:00 07/27/25 10:24 25 MG Midazolam HCl 100 ml @ 1 mls/hr Q24H IV 07/24/25 02:45 07/27/25 22:06 10 MLS/HR Fentanyl Citrate 250 ml @ 2.5 mls/hr Q24H IV 07/24/25 02:45 07/28/25 05:52 25 MLS/HR Midazolam HCl 100 ml @ 1 mls/hr Q24H IV 07/24/25 02:45 Cancel Fentanyl Citrate 250 ml @ 2.5 mls/hr Q24H IV 07/24/25 02:45 Cancel Phenylephrine HCl 250 ml @ 30 mls/hr Q8H20M IV 07/24/25 04:45 Atorvastatin Calcium 40 mg HS PO 07/24/25 22:00 07/27/25 23:00 40 MG Aspirin 81 mg DAILY PO 07/25/25 10:00 07/25/25 10:03 81 MG Enteral Nutritional Formula 1,000 ml 30ML/HR GT 07/25/25 09:30 07/26/25 18:28 1,000 ML Furosemide 20 mg DAILY IV 07/25/25 10:00 07/27/25 10:24 20 MG Pantoprazole Sodium 40 mg DAILY IV 07/25/25 10:00 07/27/25 10:25 40 MG Mupirocin 1 applic BID EACHNOSTRI 07/25/25 10:00 07/30/25 09:59 07/27/25 23:01 1 APPLIC Purified Water 100 ml Q6HR GT 07/25/25 12:00 07/28/25 05:48 100 ML Norepinephrine Bitartrate 250 ml @ 3.75 mls/hr Q24H IV 07/25/25 10:45 07/28/25 06:30 18.75 MLS/HR Amiodarone HCl 200 mg Q12HR GT 07/25/25 22:00 07/27/25 23:00 200 MG Apixaban 2.5 mg BID PO 07/26/25 22:00 07/26/25 21:31 2.5 MG Azithromycin 250 ml @ 125 mls/hr DAILY IV 07/28/25 10:00 Cancel Doxycycline Hyclate 100 ml @ 50 mls/hr Q12H IV 07/27/25 13:15 07/27/25 13:57 50 MLS/HR Laboratory Results Laboratory Tests 07/28/25 02:35 Chemistry Test 07/28/25 02:35 Albumin 3.2 g/dL (3.2-4.8) Calcium Level 8.6 mg/dL (8.7-10.4) L Total Protein 6.2 g/dL (5.7-8.2) LFT Test 07/28/25 02:35 Alanine Aminotransferase (ALT) 29 U/L (7-40) Alkaline Phosphatase 70 U/L (46-116) Aspartate Amino Transferase (AST) 36 U/L (13-40) Direct Bilirubin 0.3 mg/dL (<0.3) Total Bilirubin 0.8 mg/dL (0.2-1.0) Urinalysis Test 07/22/25 10:51 Urine Color Light-yellow (Yellow) Urine Clarity Clear (Clear) Urine pH 5.5 (5.0-9.0) Urine Specific [place] 1.025 (1.001-1.035) Urine Protein Negative (Negative) Urine Ketones Negative (Negative) Urine Blood 2+ /uL (Negative) H Urine Nitrite Negative (Negative) Urine Bilirubin Negative (Negative) Urine Urobilinogen Normal mg/dL (Negative) Urine Leukocyte Esterase Negative /uL (Negative) Urine RBC 57 /hpf (0 - 3) Urine Microscopic WBC 11 /HPF (0-3) H Urine Squamous Epithelial Cells None seen /hpf (<5) Urine Bacteria None seen /hpf (None Seen) Urine Glucose 4+ mg/dL (Normal) H Blood Gas Results Test 07/28/25 06:21 Arterial Blood pH 7.463 (7.350-7.450) FiO2 % 30.0 Microbiology Microbiology Date/Time Source Procedure Growth Status 07/24/25 03:35 Urine - [place] Urine Culture - Final Complete 07/24/25 03:26 Trachea Gram Stain - Final Complete 07/24/25 03:26 Trachea Respiratory Culture - Final Complete 07/22/25 09:53 Blood Blood Culture - Final NO GROWTH AFTER 5 DAYS OF INCUBATION. Complete Labs and/or images reviewed: Labs reviewed by me, Image(s) reviewed by me Assessment/Plan Assessment/Plan Impression: -acute metabolic encephalopathy -acute hypoxic respiratory failure -questionable acute seizure activity with postictal state -acute on chronic diastolic heart failure -atrial flutter with controlled rate -recent placement of dual-chamber pacemaker -? History of ETOH -acute kidney injury, vasomotor nephropathy -obesity -primary hypertension -NSTEMI, probably type 2 -rhabdomyolysis Plan: Events: Patient with low-grade temperature 100.2. Continues to be on 35% FiO2. -ID consultation: Recommendations reviewed. -neurology consultation pending Cardiology consultation: Continue current anticoagulation -continue new tube feeding with free water -antipyretic -continue anticoagulation with Eliquis -continue current ventilator settings -repeat labs, chest x-ray, ABG in a.m. -social service consultation for transfer to Critical care time spent with patient discussing and formulating plan of care: 40 minutes. This does not include time spent performing procedures. This medical document was created using an electronic medical record system with [employer] dictation system. Although this document has been carefully reviewed, there may still be some phonetic and typographical errors. These areas are purely typographical due to imperfections of the software programs, and do not reflect any compromise in the patient's medical care. Plan discussed with: Patient, Other (RN) My Orders Orders - FLORY OSMAN TUCKING MACHINE OPERATOR Procedure Category Date Status Time Dexmedetomidine Hcl PHA 07/28/25 In Process In D5w (Precedex) 09:00 Cpap/Sed Vacation Med ORDERS 07/28/25 Transmitted Weaning 08:58 Cpap/Sed Vacation Med ORDERS 07/28/25 Transmitted Weaning 09:33 Cpap Trial For Am ORDERS 07/28/25 Transmitted 09:33 Date of Service: Jul 28, 2025 Billing Provider: FLORY OSMAN NP Common Visit Codes: [id number] CARE 30-74 MIN FLORY OSMAN NP Jul 28, 2025 09:42
[2025-07-28] MEDS ORDERED: AZITHROMYCIN 500MG/250ML 250 ML IV SCH (10:00)
[2025-07-28] MEDS: EMPAGLIFLOZIN 10 MG TAB ONE (10:26)
--- NOTE | 2025-07-28 14:24 | DVHPN2 ---
Progress Note - Dictate Date Seen: Jul 28, 2025 Has the PT tested + for MRSA If YES, has PT been informed?: No Medical Necessity Reason Pt with a Central, PICC or Fol: No Subjective Patient was seen and evaluated in follow up in the ICU. Patient is intubated and sedated on ventilator. 30% FiO2. Patient remains on vasopressors for hemodynamic support. BUN 25, CA 8.6. Chest x-ray shows cardiomegaly with bilateral increased interstitial prominence which may reflect pulmonary edema or atypical infection. vital signs Vital Sign Date Time Temp Pulse Resp B/P (MAP) Pulse Ox O2 Delivery O2 Flow Rate FiO2 07/28/25 13:28 70 24 113/73 (86) 99 30 07/28/25 07:00 100.4 212.7 07/28/25 06:00 Mechanical Ventilator+ Total Intake and Output 07/27/25 07/27/25 07/28/25 15:00 23:00 07:00 Intake Total 610.00 ml 902.00 ml 817.25 ml Output Total 1675 ml 1800 ml Balance 610.00 ml -773.00 ml -982.75 ml medications Current Medications Medications Dose Ordered Sig/Lizabeth Route Start Time Stop Time Status Last Admin Dose Admin Ondansetron HCl 4 mg Q4HP PRN IV 07/22/25 15:00 Nitroglycerin 0.4 mg Q5MINP PRN SL 07/22/25 15:00 Diagnostic Test (Pha) 1 strip ACHS 07/22/25 17:00 07/28/25 11:30 1 STRIP Insulin Human Regular ACHS SC 07/22/25 17:00 07/27/25 17:45 2 UNITS Dextrose 50 ml UD PRN IV 07/22/25 16:30 Acetaminophen 500 mg Q6HP PRN PO 07/23/25 17:45 07/25/25 01:52 500 MG Docusate Sodium 100 mg BID PO 07/23/25 22:00 07/28/25 10:19 100 MG Memantine 5 mg HS PO 07/23/25 22:00 07/27/25 23:00 5 MG Empaglifozin 25 mg DAILY PO 07/24/25 10:00 07/28/25 10:20 25 MG Midazolam HCl 100 ml @ 1 mls/hr Q24H IV 07/24/25 02:45 07/27/25 22:06 10 MLS/HR Fentanyl Citrate 250 ml @ 2.5 mls/hr Q24H IV 07/24/25 02:45 07/28/25 05:52 25 MLS/HR Midazolam HCl 100 ml @ 1 mls/hr Q24H IV 07/24/25 02:45 Cancel Fentanyl Citrate 250 ml @ 2.5 mls/hr Q24H IV 07/24/25 02:45 Cancel Phenylephrine HCl 250 ml @ 30 mls/hr Q8H20M IV 07/24/25 04:45 Atorvastatin Calcium 40 mg HS PO 07/24/25 22:00 07/27/25 23:00 40 MG Aspirin 81 mg DAILY PO 07/25/25 10:00 07/28/25 10:19 81 MG Enteral Nutritional Formula 1,000 ml 30ML/HR GT 07/25/25 09:30 07/26/25 18:28 1,000 ML Furosemide 20 mg DAILY IV 07/25/25 10:00 07/28/25 10:23 20 MG Pantoprazole Sodium 40 mg DAILY IV 07/25/25 10:00 07/28/25 10:19 40 MG Mupirocin 1 applic BID EACHNOSTRI 07/25/25 10:00 07/30/25 09:59 07/28/25 10:23 1 APPLIC Purified Water 100 ml Q6HR GT 07/25/25 12:00 07/28/25 12:00 100 ML Norepinephrine Bitartrate 250 ml @ 3.75 mls/hr Q24H IV 07/25/25 10:45 07/28/25 06:30 18.75 MLS/HR Amiodarone HCl 200 mg Q12HR GT 07/25/25 22:00 07/28/25 10:19 200 MG Apixaban 2.5 mg BID PO 07/26/25 22:00 07/28/25 10:19 2.5 MG Azithromycin 250 ml @ 125 mls/hr DAILY IV 07/28/25 10:00 Cancel Doxycycline Hyclate 100 ml @ 50 mls/hr Q12H IV 07/27/25 13:15 07/28/25 13:51 50 MLS/HR objective GENERAL: Ill appearing, intubated and sedated on ventilator. EYES: PERRL, EOMI. Anicteric. HENT: Moist mucous membranes. LUNGS: Crackles to bilateral breath sounds. CARDIOVASCULAR: Irregular rate and rhythm. ABDOMEN: Soft, non-tender and non-distended. EXTREMITIES: No edema. SKIN: Warm, dry. laboratory and microbiology Laboratory Tests 07/28/25 02:35 Test 07/28/25 02:35 Range/Units Serum Glucose 129 H 74-106 mg/dL Problem List Non ST-elevation myocardial infarction, questionable type 1. Paroxysmal atrial fibrillation/atrial flutter, now NSR (on Eliquis therapy at home). [place] decompensated HFrEF, NYHA Class III. Presence of dual-chamber pacemaker ([employer]). Acute hypoxic respiratory failure. Diabetes mellitus, newly diagnosed. Hypertension. Dyslipidemia. Former smoker/alcoholic. Obesity. Assessment/Plan Continued all current supportive medical care. Amiodarone. Eliquis. Aspirin. IV antibiotics as ordered. Diuretics with Lasix. Nitro SL. GI prophylactics. Vasopressors for hemodynamic support. Additional plan as per the hospital course. Critical care time of 45 minutes provided to include time spent evaluation of patient at bedside, when appropriate patient/family education for diagnosis, treatment plan, review of pertinent medical information and discussion of care with specialty providers and PCP. Mechanical ventilator parameters, treatment and adjustments have personally been reviewed by me and treatment plan by production pattern maker has also been reviewed. Dietary Evaluation Review Comments: Nutrition Recommendation: 1) EN Glucerna 1.2Cal @ 55ml/hr x 24hr (goal) along with Pro-stat 1 pk TID. Water flush 50ml Q6H if allowed, adjust PRN. TF at goal volume along with Pro-stat provide 1884 kcal (100%), 124 gm protein (91%), and 1263 ml free water(including flush). 2) TPN if NPO >7 days 3) Monitor NPO status, lab values, weight trend, and I/O Expected Outcomes/Goals: Intake to meet >75% estimated needs Lab values to improve FU 2-3 days Plan discussed with: ANUPAMA Coleman MD Jul 28, 2025 14:10
--- NOTE | 2025-07-28 15:46 | DVHPN2 ---
Progress Note - Dictate Date Seen: Jul 28, 2025 Has the PT tested + for MRSA If YES, has PT been informed?: No Medical Necessity Reason Pt with a Central, PICC or Fol: No vital signs Vital Sign Date Time Temp Pulse Resp B/P (MAP) Pulse Ox O2 Delivery O2 Flow Rate FiO2 07/28/25 15:28 70 24 112/70 (84) 99 30 07/28/25 14:00 Mechanical Ventilator+ 07/28/25 07:00 100.4 212.7 Total Intake and Output 07/27/25 07/27/25 07/28/25 15:00 23:00 07:00 Intake Total 610.00 ml 902.00 ml 817.25 ml Output Total 1675 ml 1800 ml Balance 610.00 ml -773.00 ml -982.75 ml medications Current Medications Medications Dose Ordered Sig/Lizabeth Route Start Time Stop Time Status Last Admin Dose Admin Ondansetron HCl 4 mg Q4HP PRN IV 07/22/25 15:00 Nitroglycerin 0.4 mg Q5MINP PRN SL 07/22/25 15:00 Diagnostic Test (Pha) 1 strip ACHS 07/22/25 17:00 07/28/25 11:30 1 STRIP Insulin Human Regular ACHS SC 07/22/25 17:00 07/27/25 17:45 2 UNITS Dextrose 50 ml UD PRN IV 07/22/25 16:30 Acetaminophen 500 mg Q6HP PRN PO 07/23/25 17:45 07/25/25 01:52 500 MG Docusate Sodium 100 mg BID PO 07/23/25 22:00 07/28/25 10:19 100 MG Memantine 5 mg HS PO 07/23/25 22:00 07/27/25 23:00 5 MG Empaglifozin 25 mg DAILY PO 07/24/25 10:00 07/28/25 10:20 25 MG Midazolam HCl 100 ml @ 1 mls/hr Q24H IV 07/24/25 02:45 07/27/25 22:06 10 MLS/HR Fentanyl Citrate 250 ml @ 2.5 mls/hr Q24H IV 07/24/25 02:45 07/28/25 05:52 25 MLS/HR Midazolam HCl 100 ml @ 1 mls/hr Q24H IV 07/24/25 02:45 Cancel Fentanyl Citrate 250 ml @ 2.5 mls/hr Q24H IV 07/24/25 02:45 Cancel Phenylephrine HCl 250 ml @ 30 mls/hr Q8H20M IV 07/24/25 04:45 Atorvastatin Calcium 40 mg HS PO 07/24/25 22:00 07/27/25 23:00 40 MG Aspirin 81 mg DAILY PO 07/25/25 10:00 07/28/25 10:19 81 MG Enteral Nutritional Formula 1,000 ml 30ML/HR GT 07/25/25 09:30 07/26/25 18:28 1,000 ML Furosemide 20 mg DAILY IV 07/25/25 10:00 07/28/25 10:23 20 MG Pantoprazole Sodium 40 mg DAILY IV 07/25/25 10:00 07/28/25 10:19 40 MG Mupirocin 1 applic BID EACHNOSTRI 07/25/25 10:00 07/30/25 09:59 07/28/25 10:23 1 APPLIC Purified Water 100 ml Q6HR GT 07/25/25 12:00 07/28/25 12:00 100 ML Norepinephrine Bitartrate 250 ml @ 3.75 mls/hr Q24H IV 07/25/25 10:45 07/28/25 06:30 18.75 MLS/HR Amiodarone HCl 200 mg Q12HR GT 07/25/25 22:00 07/28/25 10:19 200 MG Apixaban 2.5 mg BID PO 07/26/25 22:00 07/28/25 10:19 2.5 MG Azithromycin 250 ml @ 125 mls/hr DAILY IV 07/28/25 10:00 Cancel Doxycycline Hyclate 100 ml @ 50 mls/hr Q12H IV 07/27/25 13:15 07/28/25 13:51 50 MLS/HR laboratory and microbiology Laboratory Tests 07/28/25 02:35 Test 07/28/25 02:35 Range/Units Serum Glucose 129 H 74-106 mg/dL Assessment/Plan ICU rounds 80 yo male, s/p cardiac arrest acute hypoxemic resp failure pulm congestion CHF Patient seen and examined on ICU events on mechanical ventilation s/p intubation PEEP 5, FiO2 30% off sedation, not waking up labs and imaging reviewed ABG reviewed management plan vent support cont diuresis cont abx when patient is more awake, proceed to weaning trial Pressure support 03/04, extubate when ready cont nutrition monitor renal function etc dvt proph full code crit care time 35 min Dietary Evaluation Review Comments: Nutrition Recommendation: 1) EN Glucerna 1.2Cal @ 55ml/hr x 24hr (goal) along with Pro-stat 1 pk TID. Water flush 50ml Q6H if allowed, adjust PRN. TF at goal volume along with Pro-stat provide 1884 kcal (100%), 124 gm protein (91%), and 1263 ml free water(including flush). 2) TPN if NPO >7 days 3) Monitor NPO status, lab values, weight trend, and I/O Expected Outcomes/Goals: Intake to meet >75% estimated needs Lab values to improve FU 2-3 days Plan discussed with: Other (Rn) JHON COLBY MD Jul 28, 2025 15:46
--- NOTE | 2025-07-28 20:51 | DVH ---
CHEST RADIOGRAPH Indication: intubation Technique: Single frontal view of the chest was obtained Comparison: XY CHEST XRAY 1 VIEW on DOS: 07/28/25, XY CHEST PORTABLE on DOS: 07/27/25, XY CHEST PORTABLE on DOS: 07/26/25 FINDINGS: Lines and Tubes: Endotracheal tube, enteric tube and right IJ approach central venous catheters are in satisfactory position. Left-sided approach dual lead pacemaker terminating within right atrium and right ventricle. Lungs: Diffuse interstitial prominence with obscuration of the left hemidiaphragm. No pneumothorax. Cardiomediastinal contours: Borderline cardiomegaly with mild Atherosclerotic calcification and uncoiling of the aorta. Bones: No acute osseous abnormality. IMPRESSION: Endotracheal tube, enteric tube and right IJ approach central venous catheter are in satisfactory position. Interstitial prominence which may represent pulmonary vascular congestion/ atypical infection. Possible small left-sided pleural effusion.
[2025-07-29] VITALS (107 sets, daily range): BP systolic 90–128; BP diastolic 56–87; PULSE 70–81; RESP 11–24; TEMP 94.8–99.7; O2SAT 96–100
--- NOTE | 2025-07-29 | DVHPN2 ---
Consult Progress Note Date Seen: Jul 28, 2025 Subjective Patient reports: Feels better (daily fevers, elevated temp of 99) Objective vital signs Vital Sign Date Time Temp Pulse Resp B/P (MAP) Pulse Ox O2 Delivery O2 Flow Rate FiO2 07/28/25 23:30 99.3 70 24 111/67 (82) 99 210.7 07/28/25 22:30 30 07/28/25 22:00 Mechanical Ventilator+ Total Intake and Output 07/28/25 07/28/25 07/29/25 15:00 23:00 07:00 Intake Total 231.25 ml 455.0 ml Output Total 1200 ml Balance 231.25 ml -745.0 ml medications Current Medications Medications Dose Ordered Sig/Lizabeth Route Start Time Stop Time Status Last Admin Dose Admin Ondansetron HCl 4 mg Q4HP PRN IV 07/22/25 15:00 Nitroglycerin 0.4 mg Q5MINP PRN SL 07/22/25 15:00 Diagnostic Test (Pha) 1 strip ACHS 07/22/25 17:00 07/28/25 21:21 1 STRIP Insulin Human Regular ACHS SC 07/22/25 17:00 07/28/25 21:25 2 UNITS Dextrose 50 ml UD PRN IV 07/22/25 16:30 Acetaminophen 500 mg Q6HP PRN PO 07/23/25 17:45 07/25/25 01:52 500 MG Docusate Sodium 100 mg BID PO 07/23/25 22:00 07/28/25 21:19 100 MG Memantine 5 mg HS PO 07/23/25 22:00 07/28/25 21:20 5 MG Empaglifozin 25 mg DAILY PO 07/24/25 10:00 07/28/25 10:20 25 MG Midazolam HCl 100 ml @ 1 mls/hr Q24H IV 07/24/25 02:45 07/27/25 22:06 10 MLS/HR Fentanyl Citrate 250 ml @ 2.5 mls/hr Q24H IV 07/24/25 02:45 07/28/25 05:52 25 MLS/HR Midazolam HCl 100 ml @ 1 mls/hr Q24H IV 07/24/25 02:45 Cancel Fentanyl Citrate 250 ml @ 2.5 mls/hr Q24H IV 07/24/25 02:45 Cancel Phenylephrine HCl 250 ml @ 30 mls/hr Q8H20M IV 07/24/25 04:45 Atorvastatin Calcium 40 mg HS PO 07/24/25 22:00 07/28/25 21:19 40 MG Aspirin 81 mg DAILY PO 07/25/25 10:00 07/28/25 10:19 81 MG Enteral Nutritional Formula 1,000 ml 30ML/HR GT 07/25/25 09:30 07/26/25 18:28 1,000 ML Furosemide 20 mg DAILY IV 07/25/25 10:00 07/28/25 10:23 20 MG Pantoprazole Sodium 40 mg DAILY IV 07/25/25 10:00 07/28/25 10:19 40 MG Mupirocin 1 applic BID EACHNOSTRI 07/25/25 10:00 07/30/25 09:59 07/28/25 21:21 1 APPLIC Purified Water 100 ml Q6HR GT 07/25/25 12:00 07/28/25 18:00 100 ML Norepinephrine Bitartrate 250 ml @ 3.75 mls/hr Q24H IV 07/25/25 10:45 07/28/25 06:30 18.75 MLS/HR Amiodarone HCl 200 mg Q12HR GT 07/25/25 22:00 07/28/25 21:20 200 MG Apixaban 2.5 mg BID PO 07/26/25 22:00 07/28/25 21:20 2.5 MG Azithromycin 250 ml @ 125 mls/hr DAILY IV 07/28/25 10:00 Cancel Doxycycline Hyclate 100 ml @ 50 mls/hr Q12H IV 07/27/25 13:15 07/28/25 13:51 50 MLS/HR laboratory and microbiology Laboratory Tests 07/28/25 02:35 Test 07/28/25 02:35 Range/Units Serum Glucose 129 H 74-106 mg/dL Problem List/Assessment/Plan Problem List/Assessment/Plan ASSESSMENT AND PLAN: ID Problem List: - acute hypoxic respiratory failure - atypical pneumonia -Altered mental status with decreased level of consciousness -Intermittent fevers during hospitalization (onset ~07/24, peak 102F on 07/25) -Leukocytosis (harry to 11.9 on 07/26) -Atrial fibrillation/atrial flutter; s/p pacemaker placement (06/27, [place]) -Hypertension -Possible community-acquired pneumonia vs atypical/viral pneumonia (no clear focal consolidation on CXR) -Possible drug fever (ceftriaxone; consider other recent medications) -Elevated troponin (657 on 07/24) and bundle branch block on EKG -Cardiomegaly with pulmonary vascular congestion on chest imaging -Intubated 07/23; on fentanyl infusion; on vasopressor support (norepinephrine) -Aortic systolic ejection murmur -Left shoulder blister, scabbed -Obesity (BMI 35.6) -Former alcohol use disorder; former smoker Assessment This is a male with a history of atrial fibrillation/atrial flutter, hypertension, former heavy alcohol use (currently abstinent), former smoker, and pacemaker placement on 06/27 who presented with decreased level of consciousness after several days of pacemaker-detected arrhythmias. Admission vitals were stable without initial fever; he subsequently developed fevers beginning ~07/24 peaking at 102F on 07/25, then trending down. He was intubated on 07/23, now on minimal ventilator support; he remains on norepinephrine (14 mcg) with improving blood pressures over 2448 hours. Cultures (blood, urine) have been negative to date; tracheal/respiratory culture shows normal oropharyngeal chely. Chest imaging demonstrates cardiomegaly and moderate pulmonary vascular congestion without a clear focal pneumonia. EKG shows a bundle branch block and troponin harry to 657 on 07/24. Leukocytosis increased to 11.9 on 07/26. UA shows mild pyuria (11 WBC), negative LE/nitrites, no bacteria, and 4+ glucosuria; urine cultures negative. Head CT shows no acute intracranial process; renal ultrasound without hydronephrosis. Differential for fevers and leukocytosis includes atypical/viral pneumonia, drug fever (ceftriaxone; also consider recent furosemide, increased statin dose, amiodarone), venous thromboembolism with possible inflammatory fever, aspiration pneumonitis, and noninfectious ischemic hepatopathy in the context of critical illness and elevated troponin. 07/28: fever curve improving but still febrile, doppler US negative for DVT, HIV negative Plan: -Antimicrobials: - continue doxycycline for empiric community-acquired/atypical pneumonia coverage. - if fevers do not improving, consider addition of levofloxacin 500mg qd empirically for broader atypical coverage, hold off for now -Diagnostics: - check legionella ag and mycoplasma ab -Fever/Leukocytosis: -Monitor fever curve; note that resolution may take several days if drug fever- related. -Continue to monitor WBC trend and clinical status. -Respiratory: -Continue ventilatory weaning as tolerated; monitor for signs of aspiration or evolving pneumonia. -Repeat chest imaging as clinically indicated. -Cardiovascular: -Continue amiodarone per cardiology. -Trend troponins. -Maintain adequate perfusion; coordinate with cardiology regarding vasopressor/inotrope strategy (cardioselective agents as appropriate). -Renal/Volume: -Monitor urine output (reported ~1,300 cc/day); continue diuresis with furosemide as clinically indicated. -Supportive care: -Antipyretics as needed (acetaminophen given once on 07/24). -Continue ICU-level monitoring and supportive measures. -Infection prevention: -No evidence for catheter- or skin-source infection on current exam; continue routine line care and skin assessments. Authorized and Performed by: rdudy varela Total critical care time: Approximately 66 minutes Due to a high probability of clinically significant, life threatening deterioration, the patient required my highest level of preparedness to intervene emergently and I personally spent this critical care time directly and personally managing the patient. This critical care time included obtaining a history; examining the patient; pulse oximetry; ordering and review of studies; arranging urgent treatment with development of a management plan; evaluation of patient's response to treatment; frequent reassessment; and, discussions with other providers. This critical care time was performed to assess and manage the high probability of imminent, life-threatening deterioration that could result in multi-organ failure. It was exclusive of separately billable procedures and treating other patients and teaching time. Isolation Precautions: standard \*Assessment and plan was discussed with the care team as written above. \*Plan is subject to change pending incorporation of new incoming information/diagnostics. Updates may be added as addendum at the bottom (OR TOP) of this note. Thank you for the consult. Infectious Diseases will continue to follow. Please contact Infectious Disease for any questions or concerns. ++++++++++++++++++++++++++++++++++++++++++++++++++++++++++++++++++++++++ Physical Exam: General: NAD Neck: Supple. No masses. HEENT: PERRL. Normal lids and conjunctiva. Moist mucous membranes. Oropharynx without lesions, exudates or excessive erythema. Normal appearance of the external aspects of the nose and ears. Heart: Regular rhythm, normal rate. Aortic systolic ejection murmur present. No lower extremity edema noted. Lungs: Normal respiratory effort. Clear to auscultation bilaterally. No wheezes. No crackles. Abdomen: Soft. Non-tender. Non-distended. Normal bowel sounds. No masses or abdominal hernia. Msk: No digital cyanosis. Normal tone in all 4 limbs. Skin: Warm and dry, no rashes. Left shoulder blister with scab. Neuro: Lethargic but oriented to person, place, and time when arousable. No facial droop or slurred speech. Extra-ocular movements intact. Sensation intact to soft touch in all 4 limbs. Decreased strength in upper and lower extremities. Psych: Appropriate mood. Full affect when interactive. Oriented to person, place, time, and situation when arousable. Plan discussed with: Patient Dietary Evaluation Review Comments: Nutrition Recommendation: 1) EN Glucerna 1.2Cal @ 55ml/hr x 24hr (goal) along with Pro-stat 1 pk TID. Water flush 50ml Q6H if allowed, adjust PRN. TF at goal volume along with Pro-stat provide 1884 kcal (100%), 124 gm protein (91%), and 1263 ml free water(including flush). 2) TPN if NPO >7 days 3) Monitor NPO status, lab values, weight trend, and I/O Expected Outcomes/Goals: Intake to meet >75% estimated needs Lab values to improve FU 2-3 days RUDDY VARELA MD Jul 29, 2025 00:00
[2025-07-29 03:19] LABS: Hematocrit 45.6 % (41.0-53.0); Hemoglobin 15.5 g/dL (13.5-17.5); Mean Corpuscular Hemoglobin 32.7 pg (28.0-32.0); Mean Corpuscular Volume 96.0 fL (80.0-100.0); Nucleated Red Blood Cells % 0.0 %
[2025-07-29 03:35] LABS: Potassium 3.7 mmol/L (3.5-5.1)
[2025-07-29 03:36] LABS: Anion Gap 13 (5-15); Calcium 8.8 mg/dL (8.7-10.4); Carbon Dioxide 26 mmol/L (20-31)
[2025-07-29 03:37] LABS: Chloride 108 mmol/L (98-107); Sodium 147 mmol/L (136-145)
[2025-07-29 03:41] LABS: BUN/Creatinine Ratio 27.9 (10.0-20.0)
[2025-07-29 04:06] LABS: Blood Urea Nitrogen 24 mg/dL (9-23); Glucose 141 mg/dL (74-106)
[2025-07-29 06:46] LABS: Base Excess 1.0 mmol/L (-2.0-3.0)
--- NOTE | 2025-07-29 09:29 | DVHPN2 ---
Consult Progress Note Date Seen: Jul 29, 2025 Subjective Patient reports: Feels better (off pressors, hypoxia improving on minimal vent) Objective vital signs Vital Sign Date Time Temp Pulse Resp B/P (MAP) Pulse Ox O2 Delivery O2 Flow Rate FiO2 07/29/25 09:00 99.3 81 24 99/69 (79) 100 210.7 07/29/25 08:00 Mechanical Ventilator+ 30 30 Total Intake and Output 07/28/25 07/28/25 07/29/25 15:00 23:00 07:00 Intake Total 231.25 ml 455.0 ml 638.75 ml Output Total 1200 ml 1900 ml Balance 231.25 ml -745.0 ml -1261.25 ml medications Current Medications Medications Dose Ordered Sig/Lizabeth Route Start Time Stop Time Status Last Admin Dose Admin Ondansetron HCl 4 mg Q4HP PRN IV 07/22/25 15:00 Nitroglycerin 0.4 mg Q5MINP PRN SL 07/22/25 15:00 Diagnostic Test (Pha) 1 strip ACHS 07/22/25 17:00 07/29/25 05:52 1 STRIP Insulin Human Regular ACHS SC 07/22/25 17:00 07/29/25 05:52 3 UNITS Dextrose 50 ml UD PRN IV 07/22/25 16:30 Acetaminophen 500 mg Q6HP PRN PO 07/23/25 17:45 07/25/25 01:52 500 MG Docusate Sodium 100 mg BID PO 07/23/25 22:00 07/28/25 21:19 100 MG Memantine 5 mg HS PO 07/23/25 22:00 07/28/25 21:20 5 MG Empaglifozin 25 mg DAILY PO 07/24/25 10:00 07/28/25 10:20 25 MG Midazolam HCl 100 ml @ 1 mls/hr Q24H IV 07/24/25 02:45 07/27/25 22:06 10 MLS/HR Fentanyl Citrate 250 ml @ 2.5 mls/hr Q24H IV 07/24/25 02:45 07/28/25 05:52 25 MLS/HR Midazolam HCl 100 ml @ 1 mls/hr Q24H IV 07/24/25 02:45 Cancel Fentanyl Citrate 250 ml @ 2.5 mls/hr Q24H IV 07/24/25 02:45 Cancel Phenylephrine HCl 250 ml @ 30 mls/hr Q8H20M IV 07/24/25 04:45 Atorvastatin Calcium 40 mg HS PO 07/24/25 22:00 07/28/25 21:19 40 MG Aspirin 81 mg DAILY PO 07/25/25 10:00 07/28/25 10:19 81 MG Enteral Nutritional Formula 1,000 ml 30ML/HR GT 07/25/25 09:30 07/26/25 18:28 1,000 ML Furosemide 20 mg DAILY IV 07/25/25 10:00 07/28/25 10:23 20 MG Pantoprazole Sodium 40 mg DAILY IV 07/25/25 10:00 07/28/25 10:19 40 MG Mupirocin 1 applic BID EACHNOSTRI 07/25/25 10:00 07/30/25 09:59 07/28/25 21:21 1 APPLIC Purified Water 100 ml Q6HR GT 07/25/25 12:00 07/29/25 05:52 100 ML Norepinephrine Bitartrate 250 ml @ 3.75 mls/hr Q24H IV 07/25/25 10:45 07/28/25 06:30 18.75 MLS/HR Amiodarone HCl 200 mg Q12HR GT 07/25/25 22:00 07/28/25 21:20 200 MG Apixaban 2.5 mg BID PO 07/26/25 22:00 07/28/25 21:20 2.5 MG Azithromycin 250 ml @ 125 mls/hr DAILY IV 07/28/25 10:00 Cancel Doxycycline Hyclate 100 ml @ 50 mls/hr Q12H IV 07/27/25 13:15 07/29/25 00:46 50 MLS/HR laboratory and microbiology Laboratory Tests 07/29/25 02:45 Test 07/29/25 02:45 Range/Units Serum Glucose 141 H 74-106 mg/dL Problem List/Assessment/Plan Problem List/Assessment/Plan ASSESSMENT AND PLAN: ID Problem List: - acute hypoxic respiratory failure - atypical pneumonia -Altered mental status with decreased level of consciousness -Intermittent fevers during hospitalization (onset ~07/24, peak 102F on 07/25) -Leukocytosis (harry to 11.9 on 07/26) -Atrial fibrillation/atrial flutter; s/p pacemaker placement (06/27, [place]) -Hypertension -Possible community-acquired pneumonia vs atypical/viral pneumonia (no clear focal consolidation on CXR) -Possible drug fever (ceftriaxone; consider other recent medications) -Elevated troponin (657 on 07/24) and bundle branch block on EKG -Cardiomegaly with pulmonary vascular congestion on chest imaging -Intubated 07/23; on fentanyl infusion; on vasopressor support (norepinephrine) -Aortic systolic ejection murmur -Left shoulder blister, scabbed -Obesity (BMI 35.6) -Former alcohol use disorder; former smoker Assessment This is a male with a history of atrial fibrillation/atrial flutter, hypertension, former heavy alcohol use (currently abstinent), former smoker, and pacemaker placement on 06/27 who presented with decreased level of consciousness after several days of pacemaker-detected arrhythmias. Admission vitals were stable without initial fever; he subsequently developed fevers beginning ~07/24 peaking at 102F on 07/25, then trending down. He was intubated on 07/23, now on minimal ventilator support; he remains on norepinephrine (14 mcg) with improving blood pressures over 2448 hours. Cultures (blood, urine) have been negative to date; tracheal/respiratory culture shows normal oropharyngeal chely. Chest imaging demonstrates cardiomegaly and moderate pulmonary vascular congestion without a clear focal pneumonia. EKG shows a bundle branch block and troponin harry to 657 on 07/24. Leukocytosis increased to 11.9 on 07/26. UA shows mild pyuria (11 WBC), negative LE/nitrites, no bacteria, and 4+ glucosuria; urine cultures negative. Head CT shows no acute intracranial process; renal ultrasound without hydronephrosis. Differential for fevers and leukocytosis includes atypical/viral pneumonia, drug fever (ceftriaxone; also consider recent furosemide, increased statin dose, amiodarone), venous thromboembolism with possible inflammatory fever, aspiration pneumonitis, and noninfectious ischemic hepatopathy in the context of critical illness and elevated troponin. 07/28: fever curve improving but still febrile, doppler US negative for DVT, HIV negative 07/29: off pressors, hypoxia improving on minimal vent Plan: -Antimicrobials: - continue doxycycline for empiric community-acquired/atypical pneumonia coverage. - if fevers do not improving, consider addition of levofloxacin 500mg qd empirically for broader atypical coverage, hold off for now -Diagnostics: - check legionella ag and mycoplasma ab -Fever/Leukocytosis: -Monitor fever curve; note that resolution may take several days if drug fever- related. -Continue to monitor WBC trend and clinical status. -Respiratory: -Continue ventilatory weaning as tolerated; monitor for signs of aspiration or evolving pneumonia. -Repeat chest imaging as clinically indicated. -Cardiovascular: -Continue amiodarone per cardiology. -Trend troponins. -Maintain adequate perfusion; coordinate with cardiology regarding vasopressor/inotrope strategy (cardioselective agents as appropriate). -Renal/Volume: -Monitor urine output (reported ~1,300 cc/day); continue diuresis with furosemide as clinically indicated. -Supportive care: -Antipyretics as needed (acetaminophen given once on 07/24). -Continue ICU-level monitoring and supportive measures. -Infection prevention: -No evidence for catheter- or skin-source infection on current exam; continue routine line care and skin assessments. Authorized and Performed by: ruddy varela Total critical care time: Approximately 66 minutes Due to a high probability of clinically significant, life threatening deterioration, the patient required my highest level of preparedness to intervene emergently and I personally spent this critical care time directly and personally managing the patient. This critical care time included obtaining a history; examining the patient; pulse oximetry; ordering and review of studies; arranging urgent treatment with development of a management plan; evaluation of patient's response to treatment; frequent reassessment; and, discussions with other providers. This critical care time was performed to assess and manage the high probability of imminent, life-threatening deterioration that could result in multi-organ failure. It was exclusive of separately billable procedures and treating other patients and teaching time. Isolation Precautions: standard \*Assessment and plan was discussed with the care team as written above. \*Plan is subject to change pending incorporation of new incoming information/diagnostics. Updates may be added as addendum at the bottom (OR TOP) of this note. Thank you for the consult. Infectious Diseases will continue to follow. Please contact Infectious Disease for any questions or concerns. ++++++++++++++++++++++++++++++++++++++++++++++++++++++++++++++++++++++++ Physical Exam: General: NAD Neck: Supple. No masses. HEENT: PERRL. Normal lids and conjunctiva. Moist mucous membranes. Oropharynx without lesions, exudates or excessive erythema. Normal appearance of the external aspects of the nose and ears. Heart: Regular rhythm, normal rate. Aortic systolic ejection murmur present. No lower extremity edema noted. Lungs: Normal respiratory effort. Clear to auscultation bilaterally. No wheezes. No crackles. Abdomen: Soft. Non-tender. Non-distended. Normal bowel sounds. No masses or abdominal hernia. Msk: No digital cyanosis. Normal tone in all 4 limbs. Skin: Warm and dry, no rashes. Left shoulder blister with scab. Neuro: Lethargic but oriented to person, place, and time when arousable. No facial droop or slurred speech. Extra-ocular movements intact. Sensation intact to soft touch in all 4 limbs. Decreased strength in upper and lower extremities. Psych: Appropriate mood. Full affect when interactive. Oriented to person, place, time, and situation when arousable. Plan discussed with: Patient Dietary Evaluation Review Comments: Nutrition Recommendation: 1) EN Glucerna 1.2Cal @ 55ml/hr x 24hr (goal) along with Pro-stat 1 pk TID. Water flush 50ml Q6H if allowed, adjust PRN. TF at goal volume along with Pro-stat provide 1884 kcal (100%), 124 gm protein (91%), and 1263 ml free water(including flush). 2) TPN if NPO >7 days 3) Monitor NPO status, lab values, weight trend, and I/O Expected Outcomes/Goals: Intake to meet >75% estimated needs Lab values to improve FU 2-3 days RUDDY VARELA MD Jul 29, 2025 09:29
--- NOTE | 2025-07-29 12:12 | DVHPN2 ---
Progress Note - Dictate Date Seen: Jul 29, 2025 Has the PT tested + for MRSA If YES, has PT been informed?: No Medical Necessity Reason Pt with a Central, PICC or Fol: No vital signs Vital Sign Date Time Temp Pulse Resp B/P (MAP) Pulse Ox O2 Delivery O2 Flow Rate FiO2 07/29/25 11:52 80 24 124/59 (80) 97 30 07/29/25 09:45 99.1 210.4 07/29/25 08:00 Mechanical Ventilator+ Total Intake and Output 07/28/25 07/28/25 07/29/25 15:00 23:00 07:00 Intake Total 231.25 ml 455.0 ml 638.75 ml Output Total 1200 ml 1900 ml Balance 231.25 ml -745.0 ml -1261.25 ml medications Current Medications Medications Dose Ordered Sig/Lizabeth Route Start Time Stop Time Status Last Admin Dose Admin Ondansetron HCl 4 mg Q4HP PRN IV 07/22/25 15:00 Nitroglycerin 0.4 mg Q5MINP PRN SL 07/22/25 15:00 Diagnostic Test (Pha) 1 strip ACHS 07/22/25 17:00 07/29/25 11:44 1 STRIP Insulin Human Regular ACHS SC 07/22/25 17:00 07/29/25 05:52 3 UNITS Dextrose 50 ml UD PRN IV 07/22/25 16:30 Acetaminophen 500 mg Q6HP PRN PO 07/23/25 17:45 07/25/25 01:52 500 MG Docusate Sodium 100 mg BID PO 07/23/25 22:00 07/29/25 09:37 100 MG Memantine 5 mg HS PO 07/23/25 22:00 07/28/25 21:20 5 MG Empaglifozin 25 mg DAILY PO 07/24/25 10:00 07/29/25 09:37 25 MG Midazolam HCl 100 ml @ 1 mls/hr Q24H IV 07/24/25 02:45 07/27/25 22:06 10 MLS/HR Fentanyl Citrate 250 ml @ 2.5 mls/hr Q24H IV 07/24/25 02:45 07/28/25 05:52 25 MLS/HR Midazolam HCl 100 ml @ 1 mls/hr Q24H IV 07/24/25 02:45 Cancel Fentanyl Citrate 250 ml @ 2.5 mls/hr Q24H IV 07/24/25 02:45 Cancel Phenylephrine HCl 250 ml @ 30 mls/hr Q8H20M IV 07/24/25 04:45 Atorvastatin Calcium 40 mg HS PO 07/24/25 22:00 07/28/25 21:19 40 MG Aspirin 81 mg DAILY PO 07/25/25 10:00 07/29/25 09:37 81 MG Enteral Nutritional Formula 1,000 ml 30ML/HR GT 07/25/25 09:30 07/26/25 18:28 1,000 ML Furosemide 20 mg DAILY IV 07/25/25 10:00 07/29/25 09:38 20 MG Pantoprazole Sodium 40 mg DAILY IV 07/25/25 10:00 07/29/25 09:38 40 MG Mupirocin 1 applic BID EACHNOSTRI 07/25/25 10:00 07/30/25 09:59 07/29/25 09:36 1 APPLIC Purified Water 100 ml Q6HR GT 07/25/25 12:00 07/29/25 11:44 100 ML Norepinephrine Bitartrate 250 ml @ 3.75 mls/hr Q24H IV 07/25/25 10:45 07/28/25 06:30 18.75 MLS/HR Amiodarone HCl 200 mg Q12HR GT 07/25/25 22:00 07/29/25 09:37 200 MG Apixaban 2.5 mg BID PO 07/26/25 22:00 07/29/25 09:37 2.5 MG Azithromycin 250 ml @ 125 mls/hr DAILY IV 07/28/25 10:00 Cancel Doxycycline Hyclate 100 ml @ 50 mls/hr Q12H IV 07/27/25 13:15 07/29/25 00:46 50 MLS/HR laboratory and microbiology Laboratory Tests 07/29/25 02:45 Test 07/29/25 02:45 Range/Units Serum Glucose 141 H 74-106 mg/dL Assessment/Plan ICU rounds 80 yo male, s/p cardiac arrest acute hypoxemic resp failure pulm congestion CHF Patient seen and examined on ICU events on mechanical ventilation s/p intubation PEEP 5, FiO2 30% off sedation, not waking up labs and imaging reviewed ABG reviewed management plan vent support cont diuresis cont abx when patient is more awake, proceed to weaning trial Pressure support 03/04, extubate when ready cont nutrition monitor renal function etc dvt proph full code crit care time 35 min Dietary Evaluation Review Comments: Nutrition Recommendation: 1) EN Glucerna 1.2Cal @ 55ml/hr x 24hr (goal) along with Pro-stat 1 pk TID. Water flush 50ml Q6H if allowed, adjust PRN. TF at goal volume along with Pro-stat provide 1884 kcal (100%), 124 gm protein (91%), and 1263 ml free water(including flush). 2) TPN if NPO >7 days 3) Monitor NPO status, lab values, weight trend, and I/O Expected Outcomes/Goals: Intake to meet >75% estimated needs Lab values to improve FU 2-3 days Plan discussed with: Other (rn) JHON COLBY MD Jul 29, 2025 12:12
--- NOTE | 2025-07-29 12:45 | DVHPN2 ---
Subjective Off IV vasopressors since 6:30 a.m. this morning; no reported bleeding from right IJ central line; no reported fever Reviewed: Care Plan, H&P, Labs, Medications, Previous Orders, Radiology, Other (Consultations) Changes from previous H/P or p: Changes Objective Vitals Vital Signs Date Time Temp Pulse Resp B/P (MAP) Pulse Ox O2 Delivery O2 Flow Rate FiO2 07/29/25 11:52 80 24 124/59 (80) 97 30 07/29/25 10:00 Mechanical Ventilator+ 07/29/25 09:45 99.1 210.4 Intake/Output Intake and Output 07/29/25 07:00 Intake Total 1325.00 ml Output Total 3100 ml Balance -1775.00 ml Intake Oral 250 ml IV Total 440.00 ml Tube Feeding 635 ml Output Urine Total 3100 ml General Appearance: Other (Intubated and sedated) HEENT: Atraumatic, Other (Right IJ central line with no signs of bleeding/infection) Lungs: Other (Mechanical ventilation sounds) Chest/Breasts: Other (Pacemaker in place) Cardiovascular: Normal S1, Normal S2, Other (Irregularly regular) Abdomen: Normal bowel sounds, Soft Genitourinary: Other ([place]'s catheter in place) Neuro: Other (Intubated and sedated) Psych/Mental Status: Other (Intubated and sedated) Medications Current Medications Medications Dose Ordered Sig/Lizabeth Route Start Time Stop Time Status Last Admin Dose Admin Ondansetron HCl 4 mg Q4HP PRN IV 07/22/25 15:00 Nitroglycerin 0.4 mg Q5MINP PRN SL 07/22/25 15:00 Diagnostic Test (Pha) 1 strip ACHS 07/22/25 17:00 07/29/25 11:44 1 STRIP Insulin Human Regular ACHS SC 07/22/25 17:00 07/29/25 05:52 3 UNITS Dextrose 50 ml UD PRN IV 07/22/25 16:30 Acetaminophen 500 mg Q6HP PRN PO 07/23/25 17:45 07/25/25 01:52 500 MG Docusate Sodium 100 mg BID PO 07/23/25 22:00 07/29/25 09:37 100 MG Memantine 5 mg HS PO 07/23/25 22:00 07/28/25 21:20 5 MG Empaglifozin 25 mg DAILY PO 07/24/25 10:00 07/29/25 09:37 25 MG Midazolam HCl 100 ml @ 1 mls/hr Q24H IV 07/24/25 02:45 07/27/25 22:06 10 MLS/HR Fentanyl Citrate 250 ml @ 2.5 mls/hr Q24H IV 07/24/25 02:45 07/28/25 05:52 25 MLS/HR Midazolam HCl 100 ml @ 1 mls/hr Q24H IV 07/24/25 02:45 Cancel Fentanyl Citrate 250 ml @ 2.5 mls/hr Q24H IV 07/24/25 02:45 Cancel Phenylephrine HCl 250 ml @ 30 mls/hr Q8H20M IV 07/24/25 04:45 Atorvastatin Calcium 40 mg HS PO 07/24/25 22:00 07/28/25 21:19 40 MG Aspirin 81 mg DAILY PO 07/25/25 10:00 07/29/25 09:37 81 MG Enteral Nutritional Formula 1,000 ml 30ML/HR GT 07/25/25 09:30 07/26/25 18:28 1,000 ML Furosemide 20 mg DAILY IV 07/25/25 10:00 07/29/25 09:38 20 MG Pantoprazole Sodium 40 mg DAILY IV 07/25/25 10:00 07/29/25 09:38 40 MG Mupirocin 1 applic BID EACHNOSTRI 07/25/25 10:00 07/30/25 09:59 07/29/25 09:36 1 APPLIC Purified Water 100 ml Q6HR GT 07/25/25 12:00 07/29/25 11:44 100 ML Norepinephrine Bitartrate 250 ml @ 3.75 mls/hr Q24H IV 07/25/25 10:45 07/28/25 06:30 18.75 MLS/HR Amiodarone HCl 200 mg Q12HR GT 07/25/25 22:00 07/29/25 09:37 200 MG Apixaban 2.5 mg BID PO 07/26/25 22:00 07/29/25 09:37 2.5 MG Azithromycin 250 ml @ 125 mls/hr DAILY IV 07/28/25 10:00 Cancel Doxycycline Hyclate 100 ml @ 50 mls/hr Q12H IV 07/27/25 13:15 07/29/25 00:46 50 MLS/HR Laboratory Results Laboratory Tests 07/29/25 02:45 Chemistry Test 07/29/25 02:45 Calcium Level 8.8 mg/dL (8.7-10.4) Urinalysis Test 07/22/25 10:51 Urine Color Light-yellow (Yellow) Urine Clarity Clear (Clear) Urine pH 5.5 (5.0-9.0) Urine Specific Blunt 1.025 (1.001-1.035) Urine Protein Negative (Negative) Urine Ketones Negative (Negative) Urine Blood 2+ /uL (Negative) H Urine Nitrite Negative (Negative) Urine Bilirubin Negative (Negative) Urine Urobilinogen Normal mg/dL (Negative) Urine Leukocyte Esterase Negative /uL (Negative) Urine RBC 57 /hpf (0 - 3) Urine Microscopic WBC 11 /HPF (0-3) H Urine Squamous Epithelial Cells None seen /hpf (<5) Urine Bacteria None seen /hpf (None Seen) Urine Glucose 4+ mg/dL (Normal) H Blood Gas Results Test 07/29/25 06:37 Arterial Blood pH 7.510 (7.350-7.450) FiO2 % 30.0 Microbiology Microbiology Date/Time Source Procedure Growth Status 07/27/25 11:21 Blood Blood Culture - Preliminary NO GROWTH AFTER 48 HOURS OF INCUBATION. Resulted 07/24/25 03:35 Urine - [place] Urine Culture - Final Complete 07/24/25 03:26 Trachea Gram Stain - Final Complete 07/24/25 03:26 Trachea Respiratory Culture - Final Complete Labs and/or images reviewed: Labs reviewed by me, Image(s) reviewed by me Assessment/Plan Assessment/Plan Covering Baldo Sweeney NP: Acute metabolic/toxic encephalopathy Acute hypoxic respiratory failure acute pulmonary edema and suspected pneumonia in the setting of acute on chronic systolic heart failure; HFrEF 40% CAD status post coronary angiogram on 07/26/2025 (LAD 70% stenosed, no stent placed) Septic shock due to suspected pneumonia; Gram-positive vs. Gram-negative vs. atypical;nasal MRSA positive NSTEMI likely type 2 due to above Questionable seizure activity with postictal state; EEG done but was not read yet Hypertensive heart failure Atrial flutter with controlled rate Recent placement of dual-chamber pacemaker 06/27/2025 at [facility] Hypernatremia Morbid obesity Reviewed available lab work including ABGs, and cultures Reviewed available imaging studies including CXRs Off IV vasopressors since 6:30 am Continue IV antibiotics as per infectious disease Continue telemetry Pending clarification if the new pacemaker is MRI compatible or not from [facility] Continue oxygen therapy via mechanical ventilation as per pulmonology To adjust free water to treat hypernatremia To continue anticoagulation as per cardiology Continue close monitoring Goals of care discussed with the patient's son for 20 minutes; full code 99 minutes of critical care time Late Entry. This medical document was created using an electronic medical record system with computerized dictation system. Although this document has been carefully reviewed, there might still be some phonetic and typographical errors. These areas are purely typographical due to imperfections of the software programs, and do not reflect any compromise in the patient's medical care. Plan discussed with: Son, Other (Nurse) Date of Service: Jul 29, 2025 Billing Provider: JELLY SMITH MD Common Visit Codes: 20303-WNANFKKO CARE 30-74 MIN (99 minutes), 32492-FLMFXEYI CARE-EACH +30MIN Secondary Visit Codes: 59424-LHMPCTYR CARE PLAN 30 MINUTES (20 minutes) JELLY SMITH MD Jul 29, 2025 12:45
--- NOTE | 2025-07-29 18:32 | DVHPN2 ---
Progress Note - Dictate Date Seen: Jul 29, 2025 Has the PT tested + for MRSA If YES, has PT been informed?: No Medical Necessity Reason Pt with a Central, PICC or Fol: No Subjective Patient was seen and evaluated in follow up in the ICU. Patient is intubated and sedated on ventilator. 30% FiO2. NA 147, CL 108, BUN 24. vital signs Vital Sign Date Time Temp Pulse Resp B/P (MAP) Pulse Ox O2 Delivery O2 Flow Rate FiO2 07/29/25 11:52 80 24 124/59 (80) 97 30 07/29/25 09:45 99.1 210.4 07/29/25 08:00 Mechanical Ventilator+ Total Intake and Output 07/28/25 07/28/25 07/29/25 15:00 23:00 07:00 Intake Total 231.25 ml 455.0 ml 638.75 ml Output Total 1200 ml 1900 ml Balance 231.25 ml -745.0 ml -1261.25 ml medications Current Medications Medications Dose Ordered Sig/Lizabeth Route Start Time Stop Time Status Last Admin Dose Admin Ondansetron HCl 4 mg Q4HP PRN IV 07/22/25 15:00 Nitroglycerin 0.4 mg Q5MINP PRN SL 07/22/25 15:00 Diagnostic Test (Pha) 1 strip ACHS 07/22/25 17:00 07/29/25 11:44 1 STRIP Insulin Human Regular ACHS SC 07/22/25 17:00 07/29/25 05:52 3 UNITS Dextrose 50 ml UD PRN IV 07/22/25 16:30 Acetaminophen 500 mg Q6HP PRN PO 07/23/25 17:45 07/25/25 01:52 500 MG Docusate Sodium 100 mg BID PO 07/23/25 22:00 07/29/25 09:37 100 MG Memantine 5 mg HS PO 07/23/25 22:00 07/28/25 21:20 5 MG Empaglifozin 25 mg DAILY PO 07/24/25 10:00 07/29/25 09:37 25 MG Midazolam HCl 100 ml @ 1 mls/hr Q24H IV 07/24/25 02:45 07/27/25 22:06 10 MLS/HR Fentanyl Citrate 250 ml @ 2.5 mls/hr Q24H IV 07/24/25 02:45 07/28/25 05:52 25 MLS/HR Midazolam HCl 100 ml @ 1 mls/hr Q24H IV 07/24/25 02:45 Cancel Fentanyl Citrate 250 ml @ 2.5 mls/hr Q24H IV 07/24/25 02:45 Cancel Phenylephrine HCl 250 ml @ 30 mls/hr Q8H20M IV 07/24/25 04:45 Atorvastatin Calcium 40 mg HS PO 07/24/25 22:00 07/28/25 21:19 40 MG Aspirin 81 mg DAILY PO 07/25/25 10:00 07/29/25 09:37 81 MG Enteral Nutritional Formula 1,000 ml 30ML/HR GT 07/25/25 09:30 07/26/25 18:28 1,000 ML Furosemide 20 mg DAILY IV 07/25/25 10:00 07/29/25 09:38 20 MG Pantoprazole Sodium 40 mg DAILY IV 07/25/25 10:00 07/29/25 09:38 40 MG Mupirocin 1 applic BID EACHNOSTRI 07/25/25 10:00 07/30/25 09:59 07/29/25 09:36 1 APPLIC Purified Water 100 ml Q6HR GT 07/25/25 12:00 07/29/25 11:44 100 ML Norepinephrine Bitartrate 250 ml @ 3.75 mls/hr Q24H IV 07/25/25 10:45 07/28/25 06:30 18.75 MLS/HR Amiodarone HCl 200 mg Q12HR GT 07/25/25 22:00 07/29/25 09:37 200 MG Apixaban 2.5 mg BID PO 07/26/25 22:00 07/29/25 09:37 2.5 MG Azithromycin 250 ml @ 125 mls/hr DAILY IV 07/28/25 10:00 Cancel Doxycycline Hyclate 100 ml @ 50 mls/hr Q12H IV 07/27/25 13:15 07/29/25 00:46 50 MLS/HR objective GENERAL: Ill appearing, intubated and sedated on ventilator. EYES: PERRL, EOMI. Anicteric. HENT: Moist mucous membranes. LUNGS: Crackles to bilateral breath sounds. CARDIOVASCULAR: Irregular rate and rhythm. ABDOMEN: Soft, non-tender and non-distended. EXTREMITIES: No edema. SKIN: Warm, dry. laboratory and microbiology Laboratory Tests 07/29/25 02:45 Test 07/29/25 02:45 Range/Units Serum Glucose 141 H 74-106 mg/dL Problem List Non ST-elevation myocardial infarction, questionable type 1. Paroxysmal atrial fibrillation/atrial flutter, now NSR (on Eliquis therapy at home). [place] decompensated HFrEF, NYHA Class III. Presence of dual-chamber pacemaker ([employer]). Acute hypoxic respiratory failure. Diabetes mellitus, newly diagnosed. Hypertension. Dyslipidemia. Former smoker/alcoholic. Obesity. Assessment/Plan Continued all current supportive medical care. Amiodarone. Eliquis. Aspirin. IV antibiotics as ordered. Diuretics with Lasix. Nitro SL. GI prophylactics. Additional plan as per the hospital course. Critical care time of 45 minutes provided to include time spent evaluation of patient at bedside, when appropriate patient/family education for diagnosis, treatment plan, review of pertinent medical information and discussion of care with specialty providers and PCP. Mechanical ventilator parameters, treatment and adjustments have personally been reviewed by me and treatment plan by inside sales recruiter has also been reviewed. Dietary Evaluation Review Comments: Nutrition Recommendation: 1) EN Glucerna 1.2Cal @ 55ml/hr x 24hr (goal) along with Pro-stat 1 pk TID. Water flush 50ml Q6H if allowed, adjust PRN. TF at goal volume along with Pro-stat provide 1884 kcal (100%), 124 gm protein (91%), and 1263 ml free water(including flush). 2) TPN if NPO >7 days 3) Monitor NPO status, lab values, weight trend, and I/O Expected Outcomes/Goals: Intake to meet >75% estimated needs Lab values to improve FU 2-3 days Plan discussed with: ANUPAMA Coleman MD Jul 29, 2025 12:29
[2025-07-30] VITALS (108 sets, daily range): BP systolic 93–197; BP diastolic 57–115; PULSE 70–91; RESP 12–45; TEMP 98.2–99.7; O2SAT 30–100
[2025-07-30 01:06] LABS: Vitamin D-2 25-Hydroxy <1.0 ng/mL (.); Vitamin D-3 25-Hydroxy 24 ng/mL (.)
[2025-07-30 03:30] LABS: Hematocrit 48.7 % (41.0-53.0); Hemoglobin 16.1 g/dL (13.5-17.5); Mean Corpuscular Hemoglobin 32.2 pg (28.0-32.0); Mean Corpuscular Volume 97.0 fL (80.0-100.0); Nucleated Red Blood Cells % 0.1 %
[2025-07-30 03:52] LABS: Alanine Aminotransferase 29 U/L (7-40); Albumin 3.4 g/dL (3.2-4.8); Alkaline Phosphatase 83 U/L (46-116); Anion Gap 13 (5-15); BUN/Creatinine Ratio 30.5 (10.0-20.0); Bilirubin, Total 0.5 mg/dL (0.2-1.0); Calcium 9.3 mg/dL (8.7-10.4); Carbon Dioxide 29 mmol/L (20-31); Potassium 3.7 mmol/L (3.5-5.1); Total Protein 6.5 g/dL (5.7-8.2)
[2025-07-30 03:53] LABS: Blood Urea Nitrogen 25 mg/dL (9-23); Chloride 108 mmol/L (98-107); Glucose 133 mg/dL (74-106); Sodium 150 mmol/L (136-145)
[2025-07-30 06:30] LABS: Base Excess 3.0 mmol/L (-2.0-3.0)
--- NOTE | 2025-07-30 08:13 | DVH ---
CHEST RADIOGRAPH Indication: Intubated. Thank You! Technique: Single frontal view of the chest was obtained COMPARISON: XY CHEST PORTABLE on DOS: 07/28/25, XY CHEST XRAY 1 VIEW on DOS: 07/28/25, XY CHEST PORTABLE on DOS: 07/27/25, XY CHEST PORTABLE on DOS: 07/26/25, XY CHEST PORTABLE on DOS: 07/25/25 FINDINGS: Lines and Tubes: Endotracheal tube, enteric catheter and right central venous catheter in satisfactory position. Left chest wall pacemaker. Lungs: Pulmonary vascular congestion. Pleura: No effusion. No pneumothorax. Cardiomediastinal contours: Unchanged cardiomegaly. Bones: Unremarkable IMPRESSION: Lines and tubes in satisfactory position. No significant interval change.
[2025-07-30] MEDS: FREE WATER NG SCH (13:28)
--- NOTE | 2025-07-30 14:40 | DVHPN2 ---
Subjective Off sedation; and continues to be off IV vasopressors; no reported bleeding from right IJ central line Reviewed: Care Plan, H&P, Labs, Medications, Previous Orders, Radiology, Other (Consultations) Changes from previous H/P or p: Changes Objective Vitals Vital Signs Date Time Temp Pulse Resp B/P (MAP) Pulse Ox O2 Delivery O2 Flow Rate FiO2 07/30/25 14:00 78 24 109/71 (84) 96 30 07/30/25 13:15 99.0 210.2 07/30/25 12:00 Mechanical Ventilator+ Intake/Output Intake and Output 07/30/25 07:00 Intake Total 1140 ml Output Total 2650 ml Balance -1510 ml Intake Oral 230 ml IV Total 200 ml Tube Feeding 510 ml Other 200 ml Output Urine Total 2650 ml General Appearance: Other (Intubated and off sedation but non responsive) HEENT: Atraumatic, Other (Right IJ central line with no signs of bleeding/infection) Lungs: Other (Mechanical ventilation sounds) Chest/Breasts: Other (Pacemaker in place) Cardiovascular: Normal S1, Normal S2, Other (Irregularly regular) Abdomen: Normal bowel sounds, Soft Genitourinary: Other ([place]'s catheter in place) Neuro: Other (Non responsive) Psych/Mental Status: Other (Non responsive) Medications Current Medications Medications Dose Ordered Sig/Lizabeth Route Start Time Stop Time Status Last Admin Dose Admin Ondansetron HCl 4 mg Q4HP PRN IV 07/22/25 15:00 Nitroglycerin 0.4 mg Q5MINP PRN SL 07/22/25 15:00 Diagnostic Test (Pha) 1 strip ACHS 07/22/25 17:00 07/30/25 11:28 1 STRIP Insulin Human Regular ACHS SC 07/22/25 17:00 07/30/25 11:29 3 UNITS Dextrose 50 ml UD PRN IV 07/22/25 16:30 Acetaminophen 500 mg Q6HP PRN PO 07/23/25 17:45 07/25/25 01:52 500 MG Docusate Sodium 100 mg BID PO 07/23/25 22:00 07/30/25 09:43 100 MG Memantine 5 mg HS PO 07/23/25 22:00 07/29/25 22:25 5 MG Empaglifozin 25 mg DAILY PO 07/24/25 10:00 07/30/25 09:43 25 MG Midazolam HCl 100 ml @ 1 mls/hr Q24H IV 07/24/25 02:45 07/27/25 22:06 10 MLS/HR Fentanyl Citrate 250 ml @ 2.5 mls/hr Q24H IV 07/24/25 02:45 07/28/25 05:52 25 MLS/HR Midazolam HCl 100 ml @ 1 mls/hr Q24H IV 07/24/25 02:45 Cancel Fentanyl Citrate 250 ml @ 2.5 mls/hr Q24H IV 07/24/25 02:45 Cancel Phenylephrine HCl 250 ml @ 30 mls/hr Q8H20M IV 07/24/25 04:45 Atorvastatin Calcium 40 mg HS PO 07/24/25 22:00 07/29/25 22:25 40 MG Aspirin 81 mg DAILY PO 07/25/25 10:00 07/30/25 09:43 81 MG Enteral Nutritional Formula 1,000 ml 30ML/HR GT 07/25/25 09:30 07/26/25 18:28 1,000 ML Furosemide 20 mg DAILY IV 07/25/25 10:00 07/30/25 09:42 20 MG Pantoprazole Sodium 40 mg DAILY IV 07/25/25 10:00 07/30/25 09:42 40 MG Norepinephrine Bitartrate 250 ml @ 3.75 mls/hr Q24H IV 07/25/25 10:45 07/28/25 06:30 18.75 MLS/HR Amiodarone HCl 200 mg Q12HR GT 07/25/25 22:00 07/30/25 09:42 200 MG Apixaban 2.5 mg BID PO 07/26/25 22:00 07/30/25 09:43 2.5 MG Azithromycin 250 ml @ 125 mls/hr DAILY IV 07/28/25 10:00 Cancel Doxycycline Hyclate 100 ml @ 50 mls/hr Q12H IV 07/27/25 13:15 07/30/25 13:28 50 MLS/HR Purified Water 150 ml Q4HR NG 07/30/25 14:00 07/30/25 13:28 150 ML Laboratory Results Laboratory Tests 07/30/25 03:00 Chemistry Test 07/30/25 03:00 Albumin 3.4 g/dL (3.2-4.8) Calcium Level 9.3 mg/dL (8.7-10.4) Total Protein 6.5 g/dL (5.7-8.2) LFT Test 07/30/25 03:00 Alanine Aminotransferase (ALT) 29 U/L (7-40) Alkaline Phosphatase 83 U/L (46-116) Aspartate Amino Transferase (AST) 33 U/L (13-40) Total Bilirubin 0.5 mg/dL (0.2-1.0) Urinalysis Test 07/22/25 10:51 Urine Color Light-yellow (Yellow) Urine Clarity Clear (Clear) Urine pH 5.5 (5.0-9.0) Urine Specific [place] 1.025 (1.001-1.035) Urine Protein Negative (Negative) Urine Ketones Negative (Negative) Urine Blood 2+ /uL (Negative) H Urine Nitrite Negative (Negative) Urine Bilirubin Negative (Negative) Urine Urobilinogen Normal mg/dL (Negative) Urine Leukocyte Esterase Negative /uL (Negative) Urine RBC 57 /hpf (0 - 3) Urine Microscopic WBC 11 /HPF (0-3) H Urine Squamous Epithelial Cells None seen /hpf (<5) Urine Bacteria None seen /hpf (None Seen) Urine Glucose 4+ mg/dL (Normal) H Blood Gas Results Test 07/30/25 06:23 Arterial Blood pH 7.488 (7.350-7.450) FiO2 % 30.0 Microbiology Microbiology Date/Time Source Procedure Growth Status 07/27/25 11:21 Blood Blood Culture - Preliminary NO GROWTH AFTER 72 HOURS OF INCUBATION. Resulted 07/24/25 03:35 Urine - [place] Urine Culture - Final Complete 07/24/25 03:26 Trachea Gram Stain - Final Complete 07/24/25 03:26 Trachea Respiratory Culture - Final Complete Labs and/or images reviewed: Labs reviewed by me, Image(s) reviewed by me Assessment/Plan Assessment/Plan Covering Baldo Sweeney NP: Acute metabolic/toxic encephalopathy Acute hypoxic respiratory failure acute pulmonary edema and suspected pneumonia in the setting of acute on chronic systolic heart failure; HFrEF 40% CAD status post coronary angiogram on 07/26/2025 (LAD 70% stenosed, no stent placed) Septic shock due to suspected pneumonia; Gram-positive vs. Gram-negative vs. atypical;nasal MRSA positive NSTEMI likely type 2 due to above Questionable seizure activity with postictal state; EEG done but was not read yet Hypertensive heart failure Atrial flutter with controlled rate Recent placement of dual-chamber pacemaker 06/27/2025 at [facility] Hypernatremia Morbid obesity Reviewed available lab work including ABGs, and cultures Reviewed available imaging studies including CXRs Off IV vasopressors since 6:30 am Continue IV antibiotics as per infectious disease Continue telemetry The pacemaker is not MRI compatible as per aviation technical systems specialist Neurology is following; EEG will be read around 08/01/2025 Continue oxygen therapy via mechanical ventilation as per pulmonology To adjust free water to treat hypernatremia To continue anticoagulation as per cardiology Continue close monitoring 60 minutes of critical care time Late Entry. This medical document was created using an electronic medical record system with computerized dictation system. Although this document has been carefully reviewed, there might still be some phonetic and typographical errors. These areas are purely typographical due to imperfections of the software programs, and do not reflect any compromise in the patient's medical care. Plan discussed with: Son, Other (Nurse) My Orders Orders - JELLY SMITH MD Procedure Category Date Status Time Brain Head Wo Contrast MRI 07/31/25 Logged 07:00 Complete Blood Count LAB 07/31/25 Verified 04:00 Comprehensive LAB 07/31/25 Verified Metabolic Panel 04:00 Chest Xray 1 View XY 07/31/25 Logged 04:00 Abg W/ Co-Ox RT 07/31/25 Logged 06:00 Free Water PHA 07/30/25 In Process 14:00 Date of Service: Jul 30, 2025 Billing Provider: JELLY SMITH MD Common Visit Codes: [id number] CARE 30-74 MIN (60 minutes) JELLY SMITH MD Jul 30, 2025 14:40
--- NOTE | 2025-07-30 15:30 | DVHPN2 ---
Progress Note - Dictate Date Seen: Jul 30, 2025 Has the PT tested + for MRSA If YES, has PT been informed?: No Medical Necessity Reason Pt with a Central, PICC or Fol: No vital signs Vital Sign Date Time Temp Pulse Resp B/P (MAP) Pulse Ox O2 Delivery O2 Flow Rate FiO2 07/30/25 15:15 98.4 79 24 117/75 (89) 95 209.1 07/30/25 14:00 30 07/30/25 14:00 Mechanical Ventilator+ Total Intake and Output 07/29/25 07/29/25 07/30/25 15:00 23:00 07:00 Intake Total 50 ml 480 ml 610 ml Output Total 1700 ml 950 ml Balance 50 ml -1220 ml -340 ml medications Current Medications Medications Dose Ordered Sig/Lizabeth Route Start Time Stop Time Status Last Admin Dose Admin Ondansetron HCl 4 mg Q4HP PRN IV 07/22/25 15:00 Nitroglycerin 0.4 mg Q5MINP PRN SL 07/22/25 15:00 Diagnostic Test (Pha) 1 strip ACHS 07/22/25 17:00 07/30/25 11:28 1 STRIP Insulin Human Regular ACHS SC 07/22/25 17:00 07/30/25 11:29 3 UNITS Dextrose 50 ml UD PRN IV 07/22/25 16:30 Acetaminophen 500 mg Q6HP PRN PO 07/23/25 17:45 07/25/25 01:52 500 MG Docusate Sodium 100 mg BID PO 07/23/25 22:00 07/30/25 09:43 100 MG Memantine 5 mg HS PO 07/23/25 22:00 07/29/25 22:25 5 MG Empaglifozin 25 mg DAILY PO 07/24/25 10:00 07/30/25 09:43 25 MG Midazolam HCl 100 ml @ 1 mls/hr Q24H IV 07/24/25 02:45 07/27/25 22:06 10 MLS/HR Fentanyl Citrate 250 ml @ 2.5 mls/hr Q24H IV 07/24/25 02:45 07/28/25 05:52 25 MLS/HR Midazolam HCl 100 ml @ 1 mls/hr Q24H IV 07/24/25 02:45 Cancel Fentanyl Citrate 250 ml @ 2.5 mls/hr Q24H IV 07/24/25 02:45 Cancel Phenylephrine HCl 250 ml @ 30 mls/hr Q8H20M IV 07/24/25 04:45 Atorvastatin Calcium 40 mg HS PO 07/24/25 22:00 07/29/25 22:25 40 MG Aspirin 81 mg DAILY PO 07/25/25 10:00 07/30/25 09:43 81 MG Enteral Nutritional Formula 1,000 ml 30ML/HR GT 07/25/25 09:30 07/26/25 18:28 1,000 ML Furosemide 20 mg DAILY IV 07/25/25 10:00 07/30/25 09:42 20 MG Pantoprazole Sodium 40 mg DAILY IV 07/25/25 10:00 07/30/25 09:42 40 MG Norepinephrine Bitartrate 250 ml @ 3.75 mls/hr Q24H IV 07/25/25 10:45 07/28/25 06:30 18.75 MLS/HR Amiodarone HCl 200 mg Q12HR GT 07/25/25 22:00 07/30/25 09:42 200 MG Apixaban 2.5 mg BID PO 07/26/25 22:00 07/30/25 09:43 2.5 MG Azithromycin 250 ml @ 125 mls/hr DAILY IV 07/28/25 10:00 Cancel Doxycycline Hyclate 100 ml @ 50 mls/hr Q12H IV 07/27/25 13:15 07/30/25 13:28 50 MLS/HR Purified Water 150 ml Q4HR NG 07/30/25 14:00 07/30/25 13:28 150 ML laboratory and microbiology Laboratory Tests 07/30/25 03:00 Test 07/30/25 03:00 Range/Units Serum Glucose 133 H 74-106 mg/dL Assessment/Plan ICU rounds 80 yo male, impression s/p cardiac arrest acute hypoxemic resp failure pulm congestion CHF Patient seen and examined on ICU events on mechanical ventilation s/p intubation PEEP 5, FiO2 30% off sedation, not waking up labs and imaging reviewed ABG reviewed management plan vent support cont diuresis cont abx when patient is more awake, proceed to weaning trial Pressure support 7/5, extubate when ready cont nutrition monitor renal function etc dvt proph full code crit care time 35 min Dietary Evaluation Review Comments: Nutrition Recommendation: 1) EN Glucerna 1.2Cal @ 55ml/hr x 24hr (goal) along with Pro-stat 1 pk TID. Water flush 50ml Q6H if allowed, adjust PRN. TF at goal volume along with Pro-stat provide 1884 kcal (100%), 124 gm protein (91%), and 1263 ml free water(including flush). 2) TPN if NPO >7 days 3) Monitor NPO status, lab values, weight trend, and I/O Expected Outcomes/Goals: Intake to meet >75% estimated needs Lab values to improve FU 2-3 days Plan discussed with: Other (Rn) JHON COLBY MD Jul 30, 2025 15:30
--- NOTE | 2025-07-30 20:50 | DVHPN2 ---
Progress Note - Dictate Date Seen: Jul 30, 2025 Has the PT tested + for MRSA If YES, has PT been informed?: No Medical Necessity Reason Pt with a Central, PICC or Fol: No Subjective Patient was seen and evaluated in follow up in the ICU. Patient is intubated and sedated on ventilator. 30% FiO2. Patient's pacemaker is not MRI compatible. NA 150, CL 108, BUN 25. vital signs Vital Sign Date Time Temp Pulse Resp B/P (MAP) Pulse Ox O2 Delivery O2 Flow Rate FiO2 07/30/25 13:15 99.0 81 18 137/83 (101) 95 210.2 07/30/25 12:00 Mechanical Ventilator+ 30 30 Total Intake and Output 07/29/25 07/29/25 07/30/25 15:00 23:00 07:00 Intake Total 50 ml 480 ml 610 ml Output Total 1700 ml 950 ml Balance 50 ml -1220 ml -340 ml medications Current Medications Medications Dose Ordered Sig/Lizabeth Route Start Time Stop Time Status Last Admin Dose Admin Ondansetron HCl 4 mg Q4HP PRN IV 07/22/25 15:00 Nitroglycerin 0.4 mg Q5MINP PRN SL 07/22/25 15:00 Diagnostic Test (Pha) 1 strip ACHS 07/22/25 17:00 07/30/25 11:28 1 STRIP Insulin Human Regular ACHS SC 07/22/25 17:00 07/30/25 11:29 3 UNITS Dextrose 50 ml UD PRN IV 07/22/25 16:30 Acetaminophen 500 mg Q6HP PRN PO 07/23/25 17:45 07/25/25 01:52 500 MG Docusate Sodium 100 mg BID PO 07/23/25 22:00 07/30/25 09:43 100 MG Memantine 5 mg HS PO 07/23/25 22:00 07/29/25 22:25 5 MG Empaglifozin 25 mg DAILY PO 07/24/25 10:00 07/30/25 09:43 25 MG Midazolam HCl 100 ml @ 1 mls/hr Q24H IV 07/24/25 02:45 07/27/25 22:06 10 MLS/HR Fentanyl Citrate 250 ml @ 2.5 mls/hr Q24H IV 07/24/25 02:45 07/28/25 05:52 25 MLS/HR Midazolam HCl 100 ml @ 1 mls/hr Q24H IV 07/24/25 02:45 Cancel Fentanyl Citrate 250 ml @ 2.5 mls/hr Q24H IV 07/24/25 02:45 Cancel Phenylephrine HCl 250 ml @ 30 mls/hr Q8H20M IV 07/24/25 04:45 Atorvastatin Calcium 40 mg HS PO 07/24/25 22:00 07/29/25 22:25 40 MG Aspirin 81 mg DAILY PO 07/25/25 10:00 07/30/25 09:43 81 MG Enteral Nutritional Formula 1,000 ml 30ML/HR GT 07/25/25 09:30 07/26/25 18:28 1,000 ML Furosemide 20 mg DAILY IV 07/25/25 10:00 07/30/25 09:42 20 MG Pantoprazole Sodium 40 mg DAILY IV 07/25/25 10:00 07/30/25 09:42 40 MG Norepinephrine Bitartrate 250 ml @ 3.75 mls/hr Q24H IV 07/25/25 10:45 07/28/25 06:30 18.75 MLS/HR Amiodarone HCl 200 mg Q12HR GT 07/25/25 22:00 07/30/25 09:42 200 MG Apixaban 2.5 mg BID PO 07/26/25 22:00 07/30/25 09:43 2.5 MG Azithromycin 250 ml @ 125 mls/hr DAILY IV 07/28/25 10:00 Cancel Doxycycline Hyclate 100 ml @ 50 mls/hr Q12H IV 07/27/25 13:15 07/30/25 13:28 50 MLS/HR Purified Water 150 ml Q4HR NG 07/30/25 14:00 07/30/25 13:28 150 ML objective GENERAL: Ill appearing, intubated and sedated on ventilator. EYES: PERRL, EOMI. Anicteric. HENT: Moist mucous membranes. LUNGS: Crackles to bilateral breath sounds. CARDIOVASCULAR: Irregular rate and rhythm. ABDOMEN: Soft, non-tender and non-distended. EXTREMITIES: No edema. SKIN: Warm, dry. laboratory and microbiology Laboratory Tests 07/30/25 03:00 Test 07/30/25 03:00 Range/Units Serum Glucose 133 H 74-106 mg/dL Problem List Non ST-elevation myocardial infarction, questionable type 1. Paroxysmal atrial fibrillation/atrial flutter, now NSR (on Eliquis therapy at home). [place] decompensated HFrEF, NYHA Class III. Presence of dual-chamber pacemaker ([employer]). Acute hypoxic respiratory failure. Diabetes mellitus, newly diagnosed. Hypertension. Dyslipidemia. Former smoker/alcoholic. Obesity. Assessment/Plan Continued all current supportive medical care. Amiodarone. Eliquis. Aspirin. IV antibiotics as ordered. Diuretics with Lasix. Nitro SL. GI prophylactics. Additional plan as per the hospital course. Critical care time of 45 minutes provided to include time spent evaluation of patient at bedside, when appropriate patient/family education for diagnosis, treatment plan, review of pertinent medical information and discussion of care with specialty providers and PCP. Mechanical ventilator parameters, treatment and adjustments have personally been reviewed by me and treatment plan by territory account executive has also been reviewed. Dietary Evaluation Review Comments: Nutrition Recommendation: 1) EN Glucerna 1.2Cal @ 55ml/hr x 24hr (goal) along with Pro-stat 1 pk TID. Water flush 50ml Q6H if allowed, adjust PRN. TF at goal volume along with Pro-stat provide 1884 kcal (100%), 124 gm protein (91%), and 1263 ml free water(including flush). 2) TPN if NPO >7 days 3) Monitor NPO status, lab values, weight trend, and I/O Expected Outcomes/Goals: Intake to meet >75% estimated needs Lab values to improve FU 2-3 days Plan discussed with: Other ANUPAMA JACOBO MD Jul 30, 2025 13:40
[2025-07-31] VITALS (110 sets, daily range): BP systolic 79–162; BP diastolic 51–98; PULSE 70–88; RESP 16–25; TEMP 93–99.7; O2SAT 93–100
[2025-07-31] MEDS: CALCIUM GLUC 1,000mg/50ml-NS 50 ML IV ONE (00:51)
[2025-07-31 03:11] LABS: Hematocrit 48.0 % (41.0-53.0); Hemoglobin 15.9 g/dL (13.5-17.5); Mean Corpuscular Hemoglobin 32.0 pg (28.0-32.0); Mean Corpuscular Volume 96.7 fL (80.0-100.0); Nucleated Red Blood Cells % 0.2 %
[2025-07-31 03:29] LABS: Alanine Aminotransferase 31 U/L (7-40); Albumin 3.4 g/dL (3.2-4.8); Alkaline Phosphatase 88 U/L (46-116); Anion Gap 13 (5-15); BUN/Creatinine Ratio 34.0 (10.0-20.0); Calcium 9.4 mg/dL (8.7-10.4); Carbon Dioxide 29 mmol/L (20-31); Potassium 3.6 mmol/L (3.5-5.1); Total Protein 6.5 g/dL (5.7-8.2)
[2025-07-31 03:30] LABS: Bilirubin, Total 0.6 mg/dL (0.2-1.0)
[2025-07-31 03:34] LABS: Blood Urea Nitrogen 32 mg/dL (9-23); Chloride 109 mmol/L (98-107); Glucose 168 mg/dL (74-106); Sodium 151 mmol/L (136-145)
--- NOTE | 2025-07-31 04:27 | DVH ---
CHEST RADIOGRAPH Indication: Intubated. Thank You! Technique: Single frontal view of the chest was obtained COMPARISON: XY CHEST XRAY 1 VIEW on DOS: 07/30/25, XY CHEST PORTABLE on DOS: 07/28/25, XY CHEST XRAY 1 VIEW on DOS: 07/28/25, XY CHEST PORTABLE on DOS: 07/27/25, XY CHEST PORTABLE on DOS: 07/26/25 FINDINGS: Lines and Tubes: Unchanged. Lungs: Stable appearing diffuse increased prominence of the pulmonary vasculature without evidence of focal consolidation. Pleura: No effusion. No pneumothorax. Cardiomediastinal contours: Unremarkable Bones: Unremarkable IMPRESSION: 1. Lines and tubes unchanged. 2. Stable diffuse increased prominence of the pulmonary vasculature.
[2025-07-31 06:43] LABS: Base Excess -0.2 mmol/L (-2.0-3.0)
--- NOTE | 2025-07-31 09:37 | DVHPN2 ---
Subjective Patient intubated and sedated Reviewed: Care Plan, H&P, Labs, Medications, Previous Orders, Radiology, Other (Consultations) Changes from previous H/P or p: No Changes General: Per HPI Objective Vitals Vital Signs Date Time Temp Pulse Resp B/P (MAP) Pulse Ox O2 Delivery O2 Flow Rate FiO2 07/31/25 09:21 70 24 138/90 (106) 97 30 07/31/25 06:30 97.2 207.0 07/31/25 06:00 Mechanical Ventilator+ Intake/Output Intake and Output 07/31/25 07:00 Intake Total 1201.84 ml Output Total 2450 ml Balance -1248.16 ml Intake Oral 310 ml IV Total 261.84 ml Tube Feeding 630 ml Output Urine Total 2450 ml General Appearance: Other (Intubated and off sedation but non responsive) HEENT: Atraumatic, PERRLA, Other (Right IJ central line with no signs of bleeding/infection) Lungs: Other (Mechanical ventilation sounds) Chest/Breasts: Other (Pacemaker in place) Cardiovascular: Normal S1, Normal S2, Other (Irregularly regular) Abdomen: Normal bowel sounds, Soft Genitourinary: Other ([place]'s catheter in place) Neuro: Other (Non responsive) Skin: Dry, Intact Psych/Mental Status: Other (Non responsive) Medications Current Medications Medications Dose Ordered Sig/Lizabeth Route Start Time Stop Time Status Last Admin Dose Admin Ondansetron HCl 4 mg Q4HP PRN IV 07/22/25 15:00 Nitroglycerin 0.4 mg Q5MINP PRN SL 07/22/25 15:00 Diagnostic Test (Pha) 1 strip ACHS 07/22/25 17:00 07/31/25 06:24 1 STRIP Insulin Human Regular ACHS SC 07/22/25 17:00 07/31/25 06:24 3 UNITS Dextrose 50 ml UD PRN IV 07/22/25 16:30 Acetaminophen 500 mg Q6HP PRN PO 07/23/25 17:45 07/25/25 01:52 500 MG Docusate Sodium 100 mg BID PO 07/23/25 22:00 07/30/25 09:43 100 MG Memantine 5 mg HS PO 07/23/25 22:00 07/30/25 22:42 5 MG Empaglifozin 25 mg DAILY PO 07/24/25 10:00 07/30/25 09:43 25 MG Midazolam HCl 100 ml @ 1 mls/hr Q24H IV 07/24/25 02:45 07/27/25 22:06 10 MLS/HR Fentanyl Citrate 250 ml @ 2.5 mls/hr Q24H IV 07/24/25 02:45 07/28/25 05:52 25 MLS/HR Midazolam HCl 100 ml @ 1 mls/hr Q24H IV 07/24/25 02:45 Cancel Fentanyl Citrate 250 ml @ 2.5 mls/hr Q24H IV 07/24/25 02:45 Cancel Phenylephrine HCl 250 ml @ 30 mls/hr Q8H20M IV 07/24/25 04:45 Atorvastatin Calcium 40 mg HS PO 07/24/25 22:00 07/30/25 22:39 40 MG Aspirin 81 mg DAILY PO 07/25/25 10:00 07/30/25 09:43 81 MG Pantoprazole Sodium 40 mg DAILY IV 07/25/25 10:00 07/30/25 09:42 40 MG Norepinephrine Bitartrate 250 ml @ 3.75 mls/hr Q24H IV 07/25/25 10:45 07/31/25 00:47 3.75 MLS/HR Amiodarone HCl 200 mg Q12HR GT 07/25/25 22:00 07/30/25 22:39 200 MG Apixaban 2.5 mg BID PO 07/26/25 22:00 07/30/25 22:40 2.5 MG Azithromycin 250 ml @ 125 mls/hr DAILY IV 07/28/25 10:00 Cancel Doxycycline Hyclate 100 ml @ 50 mls/hr Q12H IV 07/27/25 13:15 07/31/25 00:59 50 MLS/HR Purified Water 150 ml Q4HR NG 07/30/25 14:00 07/31/25 06:24 150 ML Enteral Nutritional Formula 1,000 ml 60ML/HR GT 07/30/25 16:45 Hydralazine HCl 10 mg Q6HP PRN IV 07/30/25 16:45 Laboratory Results Laboratory Tests 07/31/25 02:50 Chemistry Test 07/31/25 02:50 Albumin 3.4 g/dL (3.2-4.8) Calcium Level 9.4 mg/dL (8.7-10.4) Total Protein 6.5 g/dL (5.7-8.2) LFT Test 07/31/25 02:50 Alanine Aminotransferase (ALT) 31 U/L (7-40) Alkaline Phosphatase 88 U/L (46-116) Aspartate Amino Transferase (AST) 38 U/L (13-40) Total Bilirubin 0.6 mg/dL (0.2-1.0) Urinalysis Test 07/22/25 10:51 Urine Color Light-yellow (Yellow) Urine Clarity Clear (Clear) Urine pH 5.5 (5.0-9.0) Urine Specific [place] 1.025 (1.001-1.035) Urine Protein Negative (Negative) Urine Ketones Negative (Negative) Urine Blood 2+ /uL (Negative) H Urine Nitrite Negative (Negative) Urine Bilirubin Negative (Negative) Urine Urobilinogen Normal mg/dL (Negative) Urine Leukocyte Esterase Negative /uL (Negative) Urine RBC 57 /hpf (0 - 3) Urine Microscopic WBC 11 /HPF (0-3) H Urine Squamous Epithelial Cells None seen /hpf (<5) Urine Bacteria None seen /hpf (None Seen) Urine Glucose 4+ mg/dL (Normal) H Blood Gas Results Test 07/31/25 06:33 Arterial Blood pH 7.495 (7.350-7.450) FiO2 % 30.0 Microbiology Microbiology Date/Time Source Procedure Growth Status 07/27/25 11:21 Blood Blood Culture - Preliminary NO GROWTH AFTER 72 HOURS OF INCUBATION. Resulted 07/24/25 03:35 Urine - [place] Urine Culture - Final Complete 07/24/25 03:26 Trachea Gram Stain - Final Complete 07/24/25 03:26 Trachea Respiratory Culture - Final Complete Labs and/or images reviewed: Labs reviewed by me, Image(s) reviewed by me Assessment/Plan Assessment/Plan Impression: -acute metabolic encephalopathy -acute hypoxic respiratory failure -questionable acute seizure activity with postictal state -acute on chronic diastolic heart failure -atrial flutter with controlled rate -recent placement of dual-chamber pacemaker -? History of ETOH -acute kidney injury, vasomotor nephropathy -obesity -primary hypertension -NSTEMI, probably type 2 -rhabdomyolysis Plan: Events: Patient continues to have metabolic encephalopathy. MRI of the brain pending. EEG results pending. Respiratory alkalosis noted. Decrease respiratory rate. Persistent hypernatremia noted. Also noted increase in BUN. Hold Lasix at this time -ID consultation: Recommendations reviewed. -neurology recommendations appreciated. Cardiology consultation: Continue current anticoagulation -continue new tube feeding with free water -antipyretic -continue anticoagulation with Eliquis -decrease respiratory rate to 20 -repeat labs, chest x-ray, ABG in a.m. -social service consultation for transfer to [facility] Critical care time spent with patient discussing and formulating plan of care: 40 minutes. This does not include time spent performing procedures. This medical document was created using an electronic medical record system with [employer] system. Although this document has been carefully reviewed, there may still be some phonetic and typographical errors. These areas are purely typographical due to imperfections of the software programs, and do not reflect any compromise in the patient's medical care. Plan discussed with: Patient, Other (RN) My Orders Orders - FLORY OSMAN NP Procedure Category Date Status Time Ventilator Orders RT 07/31/25 Transmitted 09:28 Basic Metabolic Panel LAB 08/01/25 Verified 04:00 Complete Blood Count LAB 08/01/25 Verified 04:00 Date of Service: Jul 31, 2025 Billing Provider: FLORY OSMAN NP Common Visit Codes: [id number] CARE 30-74 MIN FLORY OSMAN NP Jul 31, 2025 09:37
--- NOTE | 2025-07-31 14:26 | DVHPN2 ---
Progress Note - Dictate Date Seen: Jul 31, 2025 Has the PT tested + for MRSA If YES, has PT been informed?: No Medical Necessity Reason Pt with a Central, PICC or Fol: No vital signs Vital Sign Date Time Temp Pulse Resp B/P (MAP) Pulse Ox O2 Delivery O2 Flow Rate FiO2 07/31/25 14:15 98.8 81 20 124/74 (91) 100 209.8 07/31/25 14:00 30 07/31/25 14:00 Mechanical Ventilator+ Total Intake and Output 07/30/25 07/30/25 07/31/25 15:00 23:00 07:00 Intake Total 50 ml 590 ml 561.84 ml Output Total 850 ml 1600 ml Balance 50 ml -260 ml -1038.16 ml medications Current Medications Medications Dose Ordered Sig/Lizabeth Route Start Time Stop Time Status Last Admin Dose Admin Ondansetron HCl 4 mg Q4HP PRN IV 07/22/25 15:00 Nitroglycerin 0.4 mg Q5MINP PRN SL 07/22/25 15:00 Diagnostic Test (Pha) 1 strip ACHS 07/22/25 17:00 07/31/25 11:31 1 STRIP Insulin Human Regular ACHS SC 07/22/25 17:00 07/31/25 11:30 2 UNITS Dextrose 50 ml UD PRN IV 07/22/25 16:30 Acetaminophen 500 mg Q6HP PRN PO 07/23/25 17:45 07/25/25 01:52 500 MG Docusate Sodium 100 mg BID PO 07/23/25 22:00 07/30/25 09:43 100 MG Memantine 5 mg HS PO 07/23/25 22:00 07/30/25 22:42 5 MG Midazolam HCl 100 ml @ 1 mls/hr Q24H IV 07/24/25 02:45 07/27/25 22:06 10 MLS/HR Fentanyl Citrate 250 ml @ 2.5 mls/hr Q24H IV 07/24/25 02:45 07/28/25 05:52 25 MLS/HR Midazolam HCl 100 ml @ 1 mls/hr Q24H IV 07/24/25 02:45 Cancel Fentanyl Citrate 250 ml @ 2.5 mls/hr Q24H IV 07/24/25 02:45 Cancel Phenylephrine HCl 250 ml @ 30 mls/hr Q8H20M IV 07/24/25 04:45 Pantoprazole Sodium 40 mg DAILY IV 07/25/25 10:00 07/31/25 10:27 40 MG Norepinephrine Bitartrate 250 ml @ 3.75 mls/hr Q24H IV 07/25/25 10:45 07/31/25 00:47 3.75 MLS/HR Amiodarone HCl 200 mg Q12HR GT 07/25/25 22:00 07/31/25 10:27 200 MG Azithromycin 250 ml @ 125 mls/hr DAILY IV 07/28/25 10:00 Cancel Doxycycline Hyclate 100 ml @ 50 mls/hr Q12H IV 07/27/25 13:15 07/31/25 13:19 50 MLS/HR Purified Water 150 ml Q4HR NG 07/30/25 14:00 07/31/25 10:27 150 ML Enteral Nutritional Formula 1,000 ml 60ML/HR GT 07/30/25 16:45 Hydralazine HCl 10 mg Q6HP PRN IV 07/30/25 16:45 Apixaban 2.5 mg BID GT 07/31/25 22:00 Aspirin 81 mg DAILY GT 08/01/25 10:00 Atorvastatin Calcium 40 mg HS GT 07/31/25 22:00 Empaglifozin 25 mg DAILY GT 08/01/25 10:00 laboratory and microbiology Laboratory Tests 07/31/25 02:50 Test 07/31/25 02:50 Range/Units Serum Glucose 168 H 74-106 mg/dL Assessment/Plan ICU rounds 80 yo male, impression s/p cardiac arrest acute hypoxemic resp failure pulm congestion CHF Patient seen and examined on ICU events on mechanical ventilation s/p intubation PEEP 5, FiO2 30% off sedation, not waking up labs and imaging reviewed ABG reviewed management plan vent support cont diuresis cont abx when patient is more awake, proceed to weaning trial Pressure support 7/5, extubate when ready cont nutrition monitor renal function etc dvt proph full code crit care time 35 min Dietary Evaluation Review Comments: Nutrition Recommendation: 1) EN Glucerna 1.2Cal @ 55ml/hr x 24hr (goal) along with Pro-stat 1 pk TID. Water flush 50ml Q6H if allowed, adjust PRN. TF at goal volume along with Pro-stat provide 1884 kcal (100%), 124 gm protein (91%), and 1263 ml free water(including flush). 2) TPN if NPO >7 days 3) Monitor NPO status, lab values, weight trend, and I/O Expected Outcomes/Goals: Intake to meet >75% estimated needs Lab values to improve FU 2-3 days Plan discussed with: Other (Rn) JHON COLBY MD Jul 31, 2025 14:26
--- NOTE | 2025-07-31 20:13 | DVHPN2 ---
Progress Note - Dictate Date Seen: Jul 31, 2025 Has the PT tested + for MRSA If YES, has PT been informed?: No Medical Necessity Reason Pt with a Central, PICC or Fol: No Subjective Mr. kennedy is a 80 years old right-handed gentleman with a history of hypertension, diabetes, atrial fibrillation, dementia, obesity, he came to the [facility] [place] on 07/22/2025 with a chief complaint of altered mental status. I have seen and examined the patient, I have talked to his nurse, and other medical staff, he has eyes are long term open, he moves the arms and the legs a little bit, right-sided stronger, but he is nonresponsive to verbal stimuli He gripped my finger with his right hand, likely if this is a reflexes or intentional movement His pacemaker was inserted on pacemaker insertion on 06/27/2025, he is not a MRI candidate T-max, 99.7 According to ER record, memantine and Eliquis were in his home medication list Urinalysis, 07/22/2025: WBC: 11, urine leukocyte esterase: Negative ABG, 07/26/2025: Combined metabolic and respiratory acidosis Blood culture, 07/22/2025: No growth Blood culture, 07/24/2025: WBC/HB/PLT/MCV, 07/26/2025: 11.9/75/147/97.7 PT/INR/ABG, 07/25/2025: 12.2/1.17/34.7, 07/26/2025: 12.5/1.2/38.4 Na, 07/28/25: 144, 07/29/2025: 147, 07/30/2025: 150, 07/31/2025: 151 BUN/CR, 07/25/2025: 17/1.44 GFR, 07/25/2025: 49, 07/31/2025: 32/0.94 HGB A1c, 07/24/2025: 7.8 TBI/AST/ALT/AP, 07/25/2025: 0.8/45/42/68 TG/HDL/LDL/HDL, 07/24/2025: 100/103/42/47 Vitamin B12, 07/24/25: 1658 TSH, 07/24/2025: 1.34 Chest x-ray, 07/24/2025: Heart is prominent size. There is moderate pulmonary vascular congestion. Dual lead left cardiac device. Enteric tube tip is not well visualized. Endotracheal tube is 4 cm from the de Chest x-ray, 07/26/2025: Lines and tubes in satisfactory position. Increased interstitial prominence. This may represent pulmonary vascular congestion and/or viral pneumonia. Chest x-ray, 07/31/2025: 1. Lines and tubes unchanged. 2. Stable diffuse increased prominence of the pulmonary vasculature CT head, 07/22/2025: No acute intracranial abnormality vital signs Vital Sign Date Time Temp Pulse Resp B/P (MAP) Pulse Ox O2 Delivery O2 Flow Rate FiO2 07/31/25 18:30 99.7 80 19 133/79 (97) 100 211.5 07/31/25 18:19 30 07/31/25 18:00 Mechanical Ventilator+ Total Intake and Output 07/30/25 07/30/25 07/31/25 15:00 23:00 07:00 Intake Total 50 ml 590 ml 561.84 ml Output Total 850 ml 1600 ml Balance 50 ml -260 ml -1038.16 ml medications Current Medications Medications Dose Ordered Sig/Lizabeth Route Start Time Stop Time Status Last Admin Dose Admin Ondansetron HCl 4 mg Q4HP PRN IV 07/22/25 15:00 Nitroglycerin 0.4 mg Q5MINP PRN SL 07/22/25 15:00 Diagnostic Test (Pha) 1 strip ACHS 07/22/25 17:00 07/31/25 17:09 1 STRIP Insulin Human Regular ACHS SC 07/22/25 17:00 07/31/25 17:09 2 UNITS Dextrose 50 ml UD PRN IV 07/22/25 16:30 Acetaminophen 500 mg Q6HP PRN PO 07/23/25 17:45 07/25/25 01:52 500 MG Docusate Sodium 100 mg BID PO 07/23/25 22:00 07/30/25 09:43 100 MG Memantine 5 mg HS PO 07/23/25 22:00 07/30/25 22:42 5 MG Midazolam HCl 100 ml @ 1 mls/hr Q24H IV 07/24/25 02:45 07/27/25 22:06 10 MLS/HR Fentanyl Citrate 250 ml @ 2.5 mls/hr Q24H IV 07/24/25 02:45 07/28/25 05:52 25 MLS/HR Midazolam HCl 100 ml @ 1 mls/hr Q24H IV 07/24/25 02:45 Cancel Fentanyl Citrate 250 ml @ 2.5 mls/hr Q24H IV 07/24/25 02:45 Cancel Phenylephrine HCl 250 ml @ 30 mls/hr Q8H20M IV 07/24/25 04:45 Pantoprazole Sodium 40 mg DAILY IV 07/25/25 10:00 07/31/25 10:27 40 MG Norepinephrine Bitartrate 250 ml @ 3.75 mls/hr Q24H IV 07/25/25 10:45 07/31/25 00:47 3.75 MLS/HR Amiodarone HCl 200 mg Q12HR GT 07/25/25 22:00 07/31/25 10:27 200 MG Azithromycin 250 ml @ 125 mls/hr DAILY IV 07/28/25 10:00 Cancel Doxycycline Hyclate 100 ml @ 50 mls/hr Q12H IV 07/27/25 13:15 07/31/25 13:19 50 MLS/HR Purified Water 150 ml Q4HR NG 07/30/25 14:00 07/31/25 18:07 150 ML Enteral Nutritional Formula 1,000 ml 60ML/HR GT 07/30/25 16:45 Hydralazine HCl 10 mg Q6HP PRN IV 07/30/25 16:45 Apixaban 2.5 mg BID GT 07/31/25 22:00 Aspirin 81 mg DAILY GT 08/01/25 10:00 Atorvastatin Calcium 40 mg HS GT 07/31/25 22:00 Empaglifozin 25 mg DAILY GT 08/01/25 10:00 objective The patient is well-nourished and well-developed with no distress. The patient is intubated MENTAL STATUS: Subjective CRANIAL NERVES: Pupils are equal, round and reactive.There are corneal reflexes and doll's eyes phenomenon. No signs of facial weakness. There are gagging or coughing reflexes SENSATION: Responses to pain stimuli. MOTOR: Normal tone in the upper and lower extremity. Normal muscle bulk. No fasciculations. Moves the arms and legs a little bit REFLEXES: Deep tendon reflexes are symmetrical. No pathological reflexes. CEREBELLAR/COORDINATION: Deferred GAIT/STATION: deferred. laboratory and microbiology Laboratory Tests 07/31/25 02:50 Test 07/31/25 02:50 Range/Units Serum Glucose 168 H 74-106 mg/dL Problem List Coma, fever Metabolic encephalopathy Toxic encephalopathy Hypoxic encephalopathy Rule out intracranial infection Dementia, likely Alzheimer disease, he may have a least moderate degree of dementia AFib Coagulopathy secondary to anticoagulation treatment Acute respiratory failure Fever Possible community-acquired pneumonia vs a typical viral pneumonia Possible drug fever Assessment/Plan Monitoring Supportive treatment ICU care EEG CT head in the morning Respiratory support/vent management Stabilize vitals/pressor drip Oxygen IV antibiotics Aspirin 81 mg daily Eliquis 2.5 mg b.i.d. Infectious disease consultation More recommendation per clinical course This medical document was created using an electronic medical record system with [employer] dictation system. Although this document has been carefully reviewed, there may still be some phonetic and typographical errors. These areas are purely typographical due to imperfections of the software programs, and do not reflect any compromise in the patient's medical care. Prognosis Poor Dietary Evaluation Review Comments: Nutrition Recommendation: 1) EN Glucerna 1.2Cal @ 55ml/hr x 24hr (goal) along with Pro-stat 1 pk TID. Water flush 50ml Q6H if allowed, adjust PRN. TF at goal volume along with Pro-stat provide 1884 kcal (100%), 124 gm protein (91%), and 1263 ml free water(including flush). 2) TPN if NPO >7 days 3) Monitor NPO status, lab values, weight trend, and I/O Expected Outcomes/Goals: Intake to meet >75% estimated needs Lab values to improve FU 2-3 days Plan discussed with: Other Critical Care Time(min): 35 CHRISTOPHER BLACK MD Jul 31, 2025 20:13
--- NOTE | 2025-07-31 21:21 | DVHEEG2 ---
Neurology EEG Procedural Note Procedural Note EXAM DATE: 07/26/2025 REFERRING DOCTOR: Dr. Black TECHNIQUE: Eighteen channels of EEG, 2 channels of EOG, and 1 channel of EKG were recorded using the International 10/20 system. CLINICAL DATA: The patient was referred for an EEG evaluation for the evidence of seizure disorder. MEDICATIONS: See the chart BACKGROUND ACTIVITY: There was significant amount of electrode and environmental artifacts. The record showed diffuse low amplitude theta activity over both hemispheres, that was reactive to external stimuli ACTIVATION: Hyperventilation: Not done Photic Stimulation: Not done Sleep: Nonresponsiveness IMPRESSION: This is a mildly abnormal EEG, this EEG is seen in mild cerebral dysfunction due to metabolic/hypoxic encephalopathy or medication effects, please correlate clinically The EKG channel showed poor [place] [address] CHRISTOPHER BLACK MD Jul 31, 2025 21:21
[2025-07-31] MEDS: APIXABAN 2.5 MG TAB GT SCH (22:32)
[2025-07-31] MEDS: ATORVASTATIN 20 MG TAB GT SCH (22:33)
--- NOTE | 2025-07-31 23:06 | DVHPN2 ---
Progress Note - Dictate Date Seen: Jul 31, 2025 Has the PT tested + for MRSA If YES, has PT been informed?: No Medical Necessity Reason Pt with a Central, PICC or Fol: No Subjective Patient was seen and evaluated in follow up in the ICU. Patient is intubated and sedated on ventilator. 30% FiO2. Patients eyes are half open, move arms/legs, but the patient is nonresponsive to verbal stimuli. Patient undergoing EEG. CBC is unremarkable. NA 151, BUN 32. Chest x-ray shows stable diffuse increased prominence of the pulmonary vasculature. vital signs Vital Sign Date Time Temp Pulse Resp B/P (MAP) Pulse Ox O2 Delivery O2 Flow Rate FiO2 07/31/25 21:35 81 20 136/84 (101) 100 30 07/31/25 20:00 Mechanical Ventilator+ 07/31/25 18:30 99.7 211.5 Total Intake and Output 07/30/25 07/30/25 07/31/25 15:00 23:00 07:00 Intake Total 50 ml 590 ml 561.84 ml Output Total 850 ml 1600 ml Balance 50 ml -260 ml -1038.16 ml medications Current Medications Medications Dose Ordered Sig/Lizabeth Route Start Time Stop Time Status Last Admin Dose Admin Ondansetron HCl 4 mg Q4HP PRN IV 07/22/25 15:00 Nitroglycerin 0.4 mg Q5MINP PRN SL 07/22/25 15:00 Diagnostic Test (Pha) 1 strip ACHS 07/22/25 17:00 07/31/25 22:00 1 STRIP Insulin Human Regular ACHS SC 07/22/25 17:00 07/31/25 22:00 3 UNITS Dextrose 50 ml UD PRN IV 07/22/25 16:30 Acetaminophen 500 mg Q6HP PRN PO 07/23/25 17:45 07/25/25 01:52 500 MG Docusate Sodium 100 mg BID PO 07/23/25 22:00 07/31/25 22:41 100 MG Memantine 5 mg HS PO 07/23/25 22:00 07/31/25 22:32 5 MG Midazolam HCl 100 ml @ 1 mls/hr Q24H IV 07/24/25 02:45 07/27/25 22:06 10 MLS/HR Fentanyl Citrate 250 ml @ 2.5 mls/hr Q24H IV 07/24/25 02:45 07/28/25 05:52 25 MLS/HR Midazolam HCl 100 ml @ 1 mls/hr Q24H IV 07/24/25 02:45 Cancel Fentanyl Citrate 250 ml @ 2.5 mls/hr Q24H IV 07/24/25 02:45 Cancel Phenylephrine HCl 250 ml @ 30 mls/hr Q8H20M IV 07/24/25 04:45 Pantoprazole Sodium 40 mg DAILY IV 07/25/25 10:00 07/31/25 10:27 40 MG Norepinephrine Bitartrate 250 ml @ 3.75 mls/hr Q24H IV 07/25/25 10:45 07/31/25 00:47 3.75 MLS/HR Amiodarone HCl 200 mg Q12HR GT 07/25/25 22:00 07/31/25 22:32 200 MG Azithromycin 250 ml @ 125 mls/hr DAILY IV 07/28/25 10:00 Cancel Doxycycline Hyclate 100 ml @ 50 mls/hr Q12H IV 07/27/25 13:15 07/31/25 13:19 50 MLS/HR Purified Water 150 ml Q4HR NG 07/30/25 14:00 07/31/25 22:00 150 ML Enteral Nutritional Formula 1,000 ml 60ML/HR GT 07/30/25 16:45 Hydralazine HCl 10 mg Q6HP PRN IV 07/30/25 16:45 Apixaban 2.5 mg BID GT 07/31/25 22:00 07/31/25 22:32 2.5 MG Aspirin 81 mg DAILY GT 08/01/25 10:00 Atorvastatin Calcium 40 mg HS GT 07/31/25 22:00 07/31/25 22:33 40 MG Empaglifozin 25 mg DAILY GT 08/01/25 10:00 objective GENERAL: Ill appearing, intubated and sedated on ventilator. EYES: PERRL, EOMI. Anicteric. HENT: Moist mucous membranes. LUNGS: Crackles to bilateral breath sounds. CARDIOVASCULAR: Irregular rate and rhythm. ABDOMEN: Soft, non-tender and non-distended. EXTREMITIES: No edema. SKIN: Warm, dry. laboratory and microbiology Laboratory Tests 07/31/25 02:50 Test 07/31/25 02:50 Range/Units Serum Glucose 168 H 74-106 mg/dL Problem List Non ST-elevation myocardial infarction, questionable type 1. Paroxysmal atrial fibrillation/atrial flutter, now NSR (on Eliquis therapy at home). [place] decompensated HFrEF, NYHA Class III. Presence of dual-chamber pacemaker ([employer]). Acute hypoxic respiratory failure. Diabetes mellitus, newly diagnosed. Hypertension. Dyslipidemia. Former smoker/alcoholic. Obesity. Assessment/Plan Continued all current supportive medical care. Amiodarone. Eliquis. Aspirin, Lipitor. IV antibiotics as ordered. IV Hydralazine for SBP >150. Vasopressors for hemodynamic support. GI prophylactics. Additional plan as per the hospital course. Critical care time of 45 minutes provided to include time spent evaluation of patient at bedside, when appropriate patient/family education for diagnosis, treatment plan, review of pertinent medical information and discussion of care with specialty providers and PCP. Mechanical ventilator parameters, treatment and adjustments have personally been reviewed by me and treatment plan by soldering machine setter has also been reviewed. Dietary Evaluation Review Comments: Nutrition Recommendation: 1) EN Glucerna 1.2Cal @ 55ml/hr x 24hr (goal) along with Pro-stat 1 pk TID. Water flush 50ml Q6H if allowed, adjust PRN. TF at goal volume along with Pro-stat provide 1884 kcal (100%), 124 gm protein (91%), and 1263 ml free water(including flush). 2) TPN if NPO >7 days 3) Monitor NPO status, lab values, weight trend, and I/O Expected Outcomes/Goals: Intake to meet >75% estimated needs Lab values to improve FU 2-3 days Plan discussed with: ANUPAMA Coleman MD Jul 31, 2025 23:06
[2025-07-31] MEDS: hydrALAZINE HCL 20 MG/ML VL IV PRN (23:18)
[2025-08-01] VITALS (106 sets, daily range): BP systolic 110–163; BP diastolic 70–111; PULSE 70–126; RESP 12–50; TEMP 98.6–100.4; O2SAT 93–100
[2025-08-01 03:41] LABS: Hematocrit 48.9 % (41.0-53.0); Hemoglobin 16.4 g/dL (13.5-17.5); Mean Corpuscular Hemoglobin 32.9 pg (28.0-32.0); Mean Corpuscular Volume 97.9 fL (80.0-100.0); Nucleated Red Blood Cells % 0.2 %
[2025-08-01 04:00] LABS: Anion Gap 15 (5-15); Carbon Dioxide 29 mmol/L (20-31); Potassium 3.7 mmol/L (3.5-5.1)
[2025-08-01 04:01] LABS: Calcium 9.6 mg/dL (8.7-10.4)
[2025-08-01 04:03] LABS: Chloride 107 mmol/L (98-107); Sodium 151 mmol/L (136-145)
[2025-08-01 04:06] LABS: BUN/Creatinine Ratio 31.9 (10.0-20.0)
[2025-08-01 04:12] LABS: Blood Urea Nitrogen 30 mg/dL (9-23); Glucose 170 mg/dL (74-106)
[2025-08-01] MEDS: Vital High Protein 1liter Bottle GT SCH (04:26)
--- NOTE | 2025-08-01 05:45 | DVH ---
CHEST RADIOGRAPH Indication: intubated Technique: Single frontal view of the chest was obtained Comparison: XY CHEST XRAY 1 VIEW on DOS: 07/31/25 FINDINGS: Lines and Tubes: The endotracheal tube terminates 5.0 cm above the de. There is pacemaker with right atrial and ventricular leads. There is a right central venous catheter with its tip terminating in the superior vena cava. The enteric tube courses below the left hemidiaphragm and the tip extends outside the field of view. Lungs: Increased interstitial prominence. No focal consolidation. Pleura: No effusion. No pneumothorax. Cardiomediastinal contours: Cardiomegaly. Bones: No acute osseous abnormality. IMPRESSION: 1. Appropriate position of the support lines and tubes. 2. Cardiomegaly with mild pulmonary vascular congestion.
[2025-08-01 07:49] LABS: Base Excess 2.8 mmol/L (-2.0-3.0)
--- NOTE | 2025-08-01 10:16 | DVHPN2 ---
Progress Note - Dictate Date Seen: Aug 01, 2025 Has the PT tested + for MRSA If YES, has PT been informed?: No Medical Necessity Reason Pt with a Central, PICC or Fol: No Subjective Mr. Renee is a 80 years old right-handed gentleman with a history of hypertension, diabetes, atrial fibrillation, dementia, obesity, he came to the [facility] on 07/22/2025 with a chief complaint of altered mental status. I have seen and examined the patient, I have talked to his nurse, talked to [place], his eyes are residential open, he moves the arms and the legs a little bit, not sure if one-sided stronger than other, questionably responsive to verbal commands He gripped my finger with his left hand today, T-max, 100.2 According to ER record, memantine and Eliquis were in his home medication list Urinalysis, 07/22/2025: WBC: 11, urine leukocyte esterase: Negative ABG, 07/26/2025: Combined metabolic and respiratory acidosis Blood culture, 07/22/2025: No growth Blood culture, 07/24/2025: WBC/HB/PLT/MCV, 07/26/2025: 11.9/75/147/97.7 PT/INR/ABG, 07/25/2025: 12.2/1.17/34.7, 07/26/2025: 12.5/1.2/38.4 Na, 07/28/25: 144, 07/29/2025: 147, 07/30/2025: 150, 07/31/2025: 151 BUN/CR, 07/25/2025: 17/1.44 GFR, 07/25/2025: 49, 07/31/2025: 32/0.94 HGB A1c, 07/24/2025: 7.8 TBI/AST/ALT/AP, 07/25/2025: 0.8/45/42/68 TG/HDL/LDL/HDL, 07/24/2025: 100/103/42/47 Vitamin B12, 07/24/25: 1658 TSH, 07/24/2025: 1.34 Chest x-ray, 07/24/2025: Heart is prominent size. There is moderate pulmonary vascular congestion. Dual lead left cardiac device. Enteric tube tip is not well visualized. Endotracheal tube is 4 cm from the de Chest x-ray, 07/26/2025: Lines and tubes in satisfactory position. Increased interstitial prominence. This may represent pulmonary vascular congestion and/or viral pneumonia. Chest x-ray, 07/31/2025: 1. Lines and tubes unchanged. 2. Stable diffuse increased prominence of the pulmonary vasculature CT head, 07/22/2025: No acute intracranial abnormality vital signs Vital Sign Date Time Temp Pulse Resp B/P (MAP) Pulse Ox O2 Delivery O2 Flow Rate FiO2 08/01/25 07:36 101 28 131/93 (106) 95 30 08/01/25 06:45 100.2 212.4 08/01/25 06:00 Mechanical Ventilator+ Total Intake and Output 07/31/25 07/31/25 08/01/25 15:00 23:00 07:00 Intake Total 3.75 ml 930 ml 580 ml Output Total 650 ml 1000 ml Balance 3.75 ml 280 ml -420 ml medications Current Medications Medications Dose Ordered Sig/Lizabeth Route Start Time Stop Time Status Last Admin Dose Admin Ondansetron HCl 4 mg Q4HP PRN IV 07/22/25 15:00 Nitroglycerin 0.4 mg Q5MINP PRN SL 07/22/25 15:00 Diagnostic Test (Pha) 1 strip ACHS 07/22/25 17:00 08/01/25 06:19 1 STRIP Insulin Human Regular ACHS SC 07/22/25 17:00 08/01/25 06:16 3 UNITS Dextrose 50 ml UD PRN IV 07/22/25 16:30 Acetaminophen 500 mg Q6HP PRN PO 07/23/25 17:45 07/25/25 01:52 500 MG Docusate Sodium 100 mg BID PO 07/23/25 22:00 07/31/25 22:41 100 MG Memantine 5 mg HS PO 07/23/25 22:00 07/31/25 22:32 5 MG Midazolam HCl 100 ml @ 1 mls/hr Q24H IV 07/24/25 02:45 07/27/25 22:06 10 MLS/HR Fentanyl Citrate 250 ml @ 2.5 mls/hr Q24H IV 07/24/25 02:45 07/28/25 05:52 25 MLS/HR Midazolam HCl 100 ml @ 1 mls/hr Q24H IV 07/24/25 02:45 Cancel Fentanyl Citrate 250 ml @ 2.5 mls/hr Q24H IV 07/24/25 02:45 Cancel Phenylephrine HCl 250 ml @ 30 mls/hr Q8H20M IV 07/24/25 04:45 Pantoprazole Sodium 40 mg DAILY IV 07/25/25 10:00 07/31/25 10:27 40 MG Norepinephrine Bitartrate 250 ml @ 3.75 mls/hr Q24H IV 07/25/25 10:45 07/31/25 00:47 3.75 MLS/HR Amiodarone HCl 200 mg Q12HR GT 07/25/25 22:00 07/31/25 22:32 200 MG Azithromycin 250 ml @ 125 mls/hr DAILY IV 07/28/25 10:00 Cancel Doxycycline Hyclate 100 ml @ 50 mls/hr Q12H IV 07/27/25 13:15 08/01/25 01:48 50 MLS/HR Purified Water 150 ml Q4HR NG 07/30/25 14:00 08/01/25 06:12 150 ML Enteral Nutritional Formula 1,000 ml 60ML/HR GT 07/30/25 16:45 08/01/25 04:26 1,000 ML Hydralazine HCl 10 mg Q6HP PRN IV 07/30/25 16:45 08/01/25 05:45 10 MG Apixaban 2.5 mg BID GT 07/31/25 22:00 07/31/25 22:32 2.5 MG Aspirin 81 mg DAILY GT 08/01/25 10:00 Atorvastatin Calcium 40 mg HS GT 07/31/25 22:00 07/31/25 22:33 40 MG Empaglifozin 25 mg DAILY GT 08/01/25 10:00 objective The patient is well-nourished and well-developed with no distress. The patient is intubated MENTAL STATUS: Subjective CRANIAL NERVES: Pupils are equal, round and reactive.There are corneal reflexes and doll's eyes phenomenon. No signs of facial weakness. There are gagging or coughing reflexes SENSATION: Responses to pain stimuli. MOTOR: Normal tone in the upper and lower extremity. Normal muscle bulk. No fasciculations. Moves the arms and legs a little bit REFLEXES: Deep tendon reflexes are symmetrical. No pathological reflexes. CEREBELLAR/COORDINATION: Deferred GAIT/STATION: deferred. laboratory and microbiology Laboratory Tests 08/01/25 02:32 Test 08/01/25 02:32 Range/Units Serum Glucose 170 H 74-106 mg/dL Problem List Coma, fever Metabolic encephalopathy Toxic encephalopathy Hypoxic encephalopathy Rule out intracranial infection Dementia, likely Alzheimer disease, he may have a least moderate degree of dementia AFib Coagulopathy secondary to anticoagulation treatment Acute respiratory failure Fever Possible community-acquired pneumonia vs a typical viral pneumonia Possible drug fever Assessment/Plan Monitoring Supportive treatment ICU care CT head in the morning Respiratory support/vent management Stabilize vitals/pressor drip Oxygen IV antibiotics Aspirin 81 mg daily Eliquis 2.5 mg b.i.d. Infectious disease consultation More recommendation per clinical course This medical document was created using an electronic medical record system with [employer] dictation system. Although this document has been carefully reviewed, there may still be some phonetic and typographical errors. These areas are purely typographical due to imperfections of the software programs, and do not reflect any compromise in the patient's medical care. Prognosis poor Dietary Evaluation Review Comments: Nutrition Recommendation: 1) EN Glucerna 1.2Cal @ 55ml/hr x 24hr (goal) along with Pro-stat 1 pk TID. Water flush 50ml Q6H if allowed, adjust PRN. TF at goal volume along with Pro-stat provide 1884 kcal (100%), 124 gm protein (91%), and 1263 ml free water(including flush). 2) TPN if NPO >7 days 3) Monitor NPO status, lab values, weight trend, and I/O Expected Outcomes/Goals: Intake to meet >75% estimated needs Lab values to improve FU 2-3 days Plan discussed with: Other Critical Care Time(min): 35 CHRISTOPHER BLACK MD Aug 01, 2025 10:16
--- NOTE | 2025-08-01 10:27 | DVHPN2 ---
Subjective Patient intubated and sedated Reviewed: Care Plan, H&P, Labs, Medications, Previous Orders, Radiology, Other (Consultations) Changes from previous H/P or p: No Changes General: Per HPI Objective Vitals Vital Signs Date Time Temp Pulse Resp B/P (MAP) Pulse Ox O2 Delivery O2 Flow Rate FiO2 08/01/25 07:36 101 28 131/93 (106) 95 30 08/01/25 06:45 100.2 212.4 08/01/25 06:00 Mechanical Ventilator+ Intake/Output Intake and Output 08/01/25 07:00 Intake Total 1513.75 ml Output Total 1650 ml Balance -136.25 ml IV Total 103.75 ml Tube Feeding 1410 ml Output Urine Total 1650 ml General Appearance: Other (Intubated and off sedation but non responsive) HEENT: Atraumatic, PERRLA, Other (Right IJ central line with no signs of bleeding/infection) Lungs: Other (Mechanical ventilation sounds) Chest/Breasts: Other (Pacemaker in place) Cardiovascular: Normal S1, Normal S2, Other (Irregularly regular) Abdomen: Normal bowel sounds, Soft Genitourinary: Other ([place]'s catheter in place) Neuro: Other (Non responsive) Skin: Dry, Intact Psych/Mental Status: Other (Non responsive) Medications Current Medications Medications Dose Ordered Sig/Lizabeth Route Start Time Stop Time Status Last Admin Dose Admin Ondansetron HCl 4 mg Q4HP PRN IV 07/22/25 15:00 Nitroglycerin 0.4 mg Q5MINP PRN SL 07/22/25 15:00 Diagnostic Test (Pha) 1 strip ACHS 07/22/25 17:00 08/01/25 06:19 1 STRIP Insulin Human Regular ACHS SC 07/22/25 17:00 08/01/25 06:16 3 UNITS Dextrose 50 ml UD PRN IV 07/22/25 16:30 Acetaminophen 500 mg Q6HP PRN PO 07/23/25 17:45 07/25/25 01:52 500 MG Docusate Sodium 100 mg BID PO 07/23/25 22:00 07/31/25 22:41 100 MG Memantine 5 mg HS PO 07/23/25 22:00 07/31/25 22:32 5 MG Fentanyl Citrate 250 ml @ 2.5 mls/hr Q24H IV 07/24/25 02:45 07/28/25 05:52 25 MLS/HR Midazolam HCl 100 ml @ 1 mls/hr Q24H IV 07/24/25 02:45 Cancel Fentanyl Citrate 250 ml @ 2.5 mls/hr Q24H IV 07/24/25 02:45 Cancel Pantoprazole Sodium 40 mg DAILY IV 07/25/25 10:00 07/31/25 10:27 40 MG Norepinephrine Bitartrate 250 ml @ 3.75 mls/hr Q24H IV 07/25/25 10:45 07/31/25 00:47 3.75 MLS/HR Amiodarone HCl 200 mg Q12HR GT 07/25/25 22:00 07/31/25 22:32 200 MG Azithromycin 250 ml @ 125 mls/hr DAILY IV 07/28/25 10:00 Cancel Doxycycline Hyclate 100 ml @ 50 mls/hr Q12H IV 07/27/25 13:15 08/01/25 01:48 50 MLS/HR Purified Water 150 ml Q4HR NG 07/30/25 14:00 08/01/25 06:12 150 ML Enteral Nutritional Formula 1,000 ml 60ML/HR GT 07/30/25 16:45 08/01/25 04:26 1,000 ML Hydralazine HCl 10 mg Q6HP PRN IV 07/30/25 16:45 08/01/25 05:45 10 MG Apixaban 2.5 mg BID GT 07/31/25 22:00 07/31/25 22:32 2.5 MG Aspirin 81 mg DAILY GT 08/01/25 10:00 Atorvastatin Calcium 40 mg HS GT 07/31/25 22:00 07/31/25 22:33 40 MG Empaglifozin 25 mg DAILY GT 08/01/25 10:00 Metoprolol Tartrate 12.5 mg BID PO 08/01/25 22:00 UNV Laboratory Results Laboratory Tests 08/01/25 02:32 Chemistry Test 08/01/25 02:32 Calcium Level 9.6 mg/dL (8.7-10.4) Urinalysis Test 07/22/25 10:51 Urine Color Light-yellow (Yellow) Urine Clarity Clear (Clear) Urine pH 5.5 (5.0-9.0) Urine Specific [place] 1.025 (1.001-1.035) Urine Protein Negative (Negative) Urine Ketones Negative (Negative) Urine Blood 2+ /uL (Negative) H Urine Nitrite Negative (Negative) Urine Bilirubin Negative (Negative) Urine Urobilinogen Normal mg/dL (Negative) Urine Leukocyte Esterase Negative /uL (Negative) Urine RBC 57 /hpf (0 - 3) Urine Microscopic WBC 11 /HPF (0-3) H Urine Squamous Epithelial Cells None seen /hpf (<5) Urine Bacteria None seen /hpf (None Seen) Urine Glucose 4+ mg/dL (Normal) H Blood Gas Results Test 08/01/25 07:31 Arterial Blood pH 7.496 (7.350-7.450) FiO2 % 30.0 Microbiology Microbiology Date/Time Source Procedure Growth Status 07/27/25 11:21 Blood Blood Culture - Preliminary NO GROWTH AFTER 72 HOURS OF INCUBATION. Resulted 07/24/25 03:35 Urine - [place] Urine Culture - Final Complete 07/24/25 03:26 Trachea Gram Stain - Final Complete 07/24/25 03:26 Trachea Respiratory Culture - Final Complete Labs and/or images reviewed: Labs reviewed by me, Image(s) reviewed by me Assessment/Plan Assessment/Plan Impression: -acute metabolic encephalopathy -acute hypoxic respiratory failure -questionable acute seizure activity with postictal state -acute on chronic diastolic heart failure -atrial flutter with controlled rate -recent placement of dual-chamber pacemaker -? History of ETOH -acute kidney injury, vasomotor nephropathy -obesity -primary hypertension -NSTEMI, probably type 2 -rhabdomyolysis Plan: Events: Patient off sedation. Slow to awaken. MRI brain on hold given new ICD. Patient awaiting CT scan of the brain. Now mildly hypertensive -start beta-cielo therapy -gentle IV hydration given free water being held -ID consultation: Recommendations reviewed. -neurology recommendations appreciated. Cardiology consultation: Continue current anticoagulation -continue new tube feeding with free water -antipyretic -continue anticoagulation with Eliquis -decrease respiratory rate to 20 -repeat labs, chest x-ray, ABG in a.m. -social service consultation for transfer to [facility] Critical care time spent with patient discussing and formulating plan of care: 40 minutes. This does not include time spent performing procedures. This medical document was created using an electronic medical record system with [employer] system. Although this document has been carefully reviewed, there may still be some phonetic and typographical errors. These areas are purely typographical due to imperfections of the software programs, and do not reflect any compromise in the patient's medical care. Plan discussed with: Patient, Other (RN) My Orders Orders - FLORY OSMAN NP Procedure Category Date Status Time Communication Order ORDERS 07/31/25 Transmitted 10:25 Chest Portable XY 08/01/25 Resulted 04:44 Sod Chl 0.45% (Sodium PHA 08/01/25 Logged Chloride 0.45% Via 10:30 Metoprolol Tartrate PHA 08/01/25 Logged Tablet (Lopressor Ta 22:00 Date of Service: Aug 01, 2025 Billing Provider: FLORY OSMAN NP Common Visit Codes: 17910-AKW/OBS DISCH DAY >30min FLORY OSMAN NP Aug 01, 2025 10:27
[2025-08-01] MEDS: SOD CHL 0.45% 1,000 ML IV ONE (10:30)
[2025-08-01] MEDS: EMPAGLIFLOZIN 10 MG TAB GT SCH (10:34)
--- NOTE | 2025-08-01 11:48 | DVHPN2 ---
Progress Note - Dictate Date Seen: Aug 01, 2025 Has the PT tested + for MRSA If YES, has PT been informed?: No Medical Necessity Reason Pt with a Central, PICC or Fol: No vital signs Vital Sign Date Time Temp Pulse Resp B/P (MAP) Pulse Ox O2 Delivery O2 Flow Rate FiO2 08/01/25 10:22 95 28 118/84 (95) 100 30 08/01/25 06:45 100.2 212.4 08/01/25 06:00 Mechanical Ventilator+ Total Intake and Output 07/31/25 07/31/25 08/01/25 15:00 23:00 07:00 Intake Total 3.75 ml 930 ml 580 ml Output Total 650 ml 1000 ml Balance 3.75 ml 280 ml -420 ml medications Current Medications Medications Dose Ordered Sig/Lizabeth Route Start Time Stop Time Status Last Admin Dose Admin Ondansetron HCl 4 mg Q4HP PRN IV 07/22/25 15:00 Nitroglycerin 0.4 mg Q5MINP PRN SL 07/22/25 15:00 Diagnostic Test (Pha) 1 strip ACHS 07/22/25 17:00 08/01/25 06:19 1 STRIP Insulin Human Regular ACHS SC 07/22/25 17:00 08/01/25 06:16 3 UNITS Dextrose 50 ml UD PRN IV 07/22/25 16:30 Acetaminophen 500 mg Q6HP PRN PO 07/23/25 17:45 07/25/25 01:52 500 MG Docusate Sodium 100 mg BID PO 07/23/25 22:00 07/31/25 22:41 100 MG Memantine 5 mg HS PO 07/23/25 22:00 07/31/25 22:32 5 MG Fentanyl Citrate 250 ml @ 2.5 mls/hr Q24H IV 07/24/25 02:45 07/28/25 05:52 25 MLS/HR Midazolam HCl 100 ml @ 1 mls/hr Q24H IV 07/24/25 02:45 Cancel Fentanyl Citrate 250 ml @ 2.5 mls/hr Q24H IV 07/24/25 02:45 Cancel Pantoprazole Sodium 40 mg DAILY IV 07/25/25 10:00 08/01/25 10:35 40 MG Norepinephrine Bitartrate 250 ml @ 3.75 mls/hr Q24H IV 07/25/25 10:45 07/31/25 00:47 3.75 MLS/HR Amiodarone HCl 200 mg Q12HR GT 07/25/25 22:00 08/01/25 10:34 200 MG Azithromycin 250 ml @ 125 mls/hr DAILY IV 07/28/25 10:00 Cancel Doxycycline Hyclate 100 ml @ 50 mls/hr Q12H IV 07/27/25 13:15 08/01/25 01:48 50 MLS/HR Purified Water 150 ml Q4HR NG 07/30/25 14:00 08/01/25 10:00 150 ML Enteral Nutritional Formula 1,000 ml 60ML/HR GT 07/30/25 16:45 08/01/25 04:26 1,000 ML Hydralazine HCl 10 mg Q6HP PRN IV 07/30/25 16:45 08/01/25 05:45 10 MG Apixaban 2.5 mg BID GT 07/31/25 22:00 08/01/25 10:34 2.5 MG Aspirin 81 mg DAILY GT 08/01/25 10:00 08/01/25 10:34 81 MG Atorvastatin Calcium 40 mg HS GT 07/31/25 22:00 07/31/25 22:33 40 MG Empaglifozin 25 mg DAILY GT 08/01/25 10:00 08/01/25 10:34 25 MG Metoprolol Tartrate 12.5 mg BID PO 08/01/25 22:00 laboratory and microbiology Laboratory Tests 08/01/25 02:32 Test 08/01/25 02:32 Range/Units Serum Glucose 170 H 74-106 mg/dL Assessment/Plan ICU rounds 80 yo male, impression s/p cardiac arrest acute hypoxemic resp failure pulm congestion CHF Patient seen and examined on ICU events on mechanical ventilation s/p intubation PEEP 5, FiO2 30% off sedation, not waking up labs and imaging reviewed CT of the brain pending ABG reviewed management plan vent support cont diuresis cont abx when patient is more awake, proceed to weaning trial Pressure support 7/5, extubate when ready cont nutrition monitor renal function etc dvt proph full code crit care time 35 min Dietary Evaluation Review Comments: Nutrition Recommendation: 1) EN Glucerna 1.2Cal @ 55ml/hr x 24hr (goal) along with Pro-stat 1 pk TID. Water flush 50ml Q6H if allowed, adjust PRN. TF at goal volume along with Pro-stat provide 1884 kcal (100%), 124 gm protein (91%), and 1263 ml free water(including flush). 2) TPN if NPO >7 days 3) Monitor NPO status, lab values, weight trend, and I/O Expected Outcomes/Goals: Intake to meet >75% estimated needs Lab values to improve FU 2-3 days Plan discussed with: Other (Rn) JHON COLBY MD Aug 01, 2025 11:48
--- NOTE | 2025-08-01 12:16 | DVH ---
EXAM: CT HEAD WITHOUT CONTRAST INDICATION: CVA TECHNIQUE: CT of the head without intravenous contrast. Coronal and sagittal reformatted images are submitted. Radiation Dose : 1. Head: CT Dose: CTDI volume is 59.5 mGy. Dose-length product is 1290.5 mGy*cm The dose indicators for CT are the volume Computed Tomography (CT) Dose Index (CTDIvol) and the Dose Length Product (DLP), and are measured in units of mGy and mGy-cm, respectively. These indicators are not patient dose, but values generated from the CT scanner acquisition factors. The report includes radiation exposure data for exposures received during this examination. All CT scans at this medical facility are performed using dose modulation techniques as appropriate to a performed exam including the following: Automated exposure control was utilized; adjustment of the MA and/or KV according to patient size; and use of iterative reconstruction technique. COMPARISON: CT HEAD WITHOUT CONTRAST on DOS: 07/22/25 FINDINGS: There is no evidence of acute intracranial hemorrhage, extra-axial collection, mass effect, midline shift, herniation or hydrocephalus. There are periventricular and subcortical hypodensities, nonspecific, but likely reflecting sequelae of chronic microvascular ischemic changes. The ventricles, sulci and cisterns are age appropriate. The toscano-white differentiation is intact. The visualized paranasal sinuses and mastoid air cells are clear. No depressed calvarial fracture. The surrounding soft tissues are unremarkable. Partially imaged life-support tubes. IMPRESSION: 1. No evidence of acute intracranial abnormality.
--- NOTE | 2025-08-01 16:10 | DVHPN2 ---
Consult Progress Note Date Seen: Jul 31, 2025 Subjective Patient reports: Feels better (requiring antipyretic, cooling blacket) Objective vital signs Vital Sign Date Time Temp Pulse Resp B/P (MAP) Pulse Ox O2 Delivery O2 Flow Rate FiO2 08/01/25 14:00 30 08/01/25 14:00 92 08/01/25 14:00 24 96 Mechanical Ventilator+ 08/01/25 13:58 134/98 (110) 08/01/25 06:45 100.2 212.4 Total Intake and Output 07/31/25 07/31/25 08/01/25 15:00 23:00 07:00 Intake Total 3.75 ml 930 ml 580 ml Output Total 650 ml 1000 ml Balance 3.75 ml 280 ml -420 ml medications Current Medications Medications Dose Ordered Sig/Lizabeth Route Start Time Stop Time Status Last Admin Dose Admin Ondansetron HCl 4 mg Q4HP PRN IV 07/22/25 15:00 Nitroglycerin 0.4 mg Q5MINP PRN SL 07/22/25 15:00 Diagnostic Test (Pha) 1 strip ACHS 07/22/25 17:00 08/01/25 11:30 1 STRIP Insulin Human Regular ACHS SC 07/22/25 17:00 08/01/25 11:30 2 UNITS Dextrose 50 ml UD PRN IV 07/22/25 16:30 Acetaminophen 500 mg Q6HP PRN PO 07/23/25 17:45 07/25/25 01:52 500 MG Docusate Sodium 100 mg BID PO 07/23/25 22:00 07/31/25 22:41 100 MG Memantine 5 mg HS PO 07/23/25 22:00 07/31/25 22:32 5 MG Fentanyl Citrate 250 ml @ 2.5 mls/hr Q24H IV 07/24/25 02:45 07/28/25 05:52 25 MLS/HR Midazolam HCl 100 ml @ 1 mls/hr Q24H IV 07/24/25 02:45 Cancel Fentanyl Citrate 250 ml @ 2.5 mls/hr Q24H IV 07/24/25 02:45 Cancel Pantoprazole Sodium 40 mg DAILY IV 07/25/25 10:00 08/01/25 10:35 40 MG Norepinephrine Bitartrate 250 ml @ 3.75 mls/hr Q24H IV 07/25/25 10:45 07/31/25 00:47 3.75 MLS/HR Amiodarone HCl 200 mg Q12HR GT 07/25/25 22:00 08/01/25 10:34 200 MG Azithromycin 250 ml @ 125 mls/hr DAILY IV 07/28/25 10:00 Cancel Purified Water 150 ml Q4HR NG 07/30/25 14:00 08/01/25 14:13 150 ML Enteral Nutritional Formula 1,000 ml 60ML/HR GT 07/30/25 16:45 08/01/25 04:26 1,000 ML Hydralazine HCl 10 mg Q6HP PRN IV 07/30/25 16:45 08/01/25 05:45 10 MG Apixaban 2.5 mg BID GT 07/31/25 22:00 08/01/25 10:34 2.5 MG Aspirin 81 mg DAILY GT 08/01/25 10:00 08/01/25 10:34 81 MG Atorvastatin Calcium 40 mg HS GT 07/31/25 22:00 07/31/25 22:33 40 MG Empaglifozin 25 mg DAILY GT 08/01/25 10:00 08/01/25 10:34 25 MG Metoprolol Tartrate 12.5 mg BID PO 08/01/25 22:00 Levofloxacin/ Dextrose 150 ml @ 100 mls/hr DAILY IV 08/02/25 10:00 UNV laboratory and microbiology Laboratory Tests 08/01/25 02:32 Test 08/01/25 02:32 Range/Units Serum Glucose 170 H 74-106 mg/dL Problem List/Assessment/Plan Problem List/Assessment/Plan ASSESSMENT AND PLAN: ID Problem List: - acute hypoxic respiratory failure - atypical pneumonia -Altered mental status with decreased level of consciousness -Intermittent fevers during hospitalization (onset ~07/24, peak 102F on 07/25) -Leukocytosis (harry to 11.9 on 07/26) -Atrial fibrillation/atrial flutter; s/p pacemaker placement (06/27, [place]) -Hypertension -Possible community-acquired pneumonia vs atypical/viral pneumonia (no clear focal consolidation on CXR) -Possible drug fever (ceftriaxone; consider other recent medications) -Elevated troponin (657 on 07/24) and bundle branch block on EKG -Cardiomegaly with pulmonary vascular congestion on chest imaging -Intubated 07/23; on fentanyl infusion; on vasopressor support (norepinephrine) -Aortic systolic ejection murmur -Left shoulder blister, scabbed -Obesity (BMI 35.6) -Former alcohol use disorder; former smoker Assessment This is a male with a history of atrial fibrillation/atrial flutter, hypertension, former heavy alcohol use (currently abstinent), former smoker, and pacemaker placement on 06/27 who presented with decreased level of consciousness after several days of pacemaker-detected arrhythmias. Admission vitals were stable without initial fever; he subsequently developed fevers beginning ~07/24 peaking at 102F on 07/25, then trending down. He was intubated on 07/23, now on minimal ventilator support; he remains on norepinephrine (14 mcg) with improving blood pressures over 2448 hours. Cultures (blood, urine) have been negative to date; tracheal/respiratory culture shows normal oropharyngeal chely. Chest imaging demonstrates cardiomegaly and moderate pulmonary vascular congestion without a clear focal pneumonia. EKG shows a bundle branch block and troponin harry to 657 on 07/24. Leukocytosis increased to 11.9 on 07/26. UA shows mild pyuria (11 WBC), negative LE/nitrites, no bacteria, and 4+ glucosuria; urine cultures negative. Head CT shows no acute intracranial process; renal ultrasound without hydronephrosis. Differential for fevers and leukocytosis includes atypical/viral pneumonia, drug fever (ceftriaxone; also consider recent furosemide, increased statin dose, amiodarone), venous thromboembolism with possible inflammatory fever, aspiration pneumonitis, and noninfectious ischemic hepatopathy in the context of critical illness and elevated troponin. 07/28: fever curve improving but still febrile, doppler US negative for DVT, HIV negative 07/29: off pressors, hypoxia improving on minimal vent 07/30: no new fevers 07/31: requiring antipyretic, cooling blanket Plan: -Antimicrobials: - continue doxycycline for empiric community-acquired/atypical pneumonia coverage. - if fevers do not improving, consider addition of levofloxacin 500mg qd empirically for broader atypical coverage, hold off for now -Diagnostics: - check legionella ag and mycoplasma ab--> negative -Fever/Leukocytosis: -Monitor fever curve; note that resolution may take several days if drug fever- related. -Continue to monitor WBC trend and clinical status. -Respiratory: -Continue ventilatory weaning as tolerated; monitor for signs of aspiration or evolving pneumonia. -Repeat chest imaging as clinically indicated. -Cardiovascular: -Continue amiodarone per cardiology. -Trend troponins. -Maintain adequate perfusion; coordinate with cardiology regarding vasopressor/inotrope strategy (cardioselective agents as appropriate). -Renal/Volume: -Monitor urine output (reported ~1,300 cc/day); continue diuresis with furosemide as clinically indicated. -Supportive care: -Antipyretics as needed (acetaminophen given once on 07/24). -Continue ICU-level monitoring and supportive measures. -Infection prevention: -No evidence for catheter- or skin-source infection on current exam; continue routine line care and skin assessments. Authorized and Performed by: ruddy varela Total critical care time: Approximately 66 minutes Due to a high probability of clinically significant, life threatening deterioration, the patient required my highest level of preparedness to intervene emergently and I personally spent this critical care time directly and personally managing the patient. This critical care time included obtaining a history; examining the patient; pulse oximetry; ordering and review of studies; arranging urgent treatment with development of a management plan; evaluation of patient's response to treatment; frequent reassessment; and, discussions with other providers. This critical care time was performed to assess and manage the high probability of imminent, life-threatening deterioration that could result in multi-organ failure. It was exclusive of separately billable procedures and treating other patients and teaching time. Isolation Precautions: standard \*Assessment and plan was discussed with the care team as written above. \*Plan is subject to change pending incorporation of new incoming information/diagnostics. Updates may be added as addendum at the bottom (OR TOP) of this note. Thank you for the consult. Infectious Diseases will continue to follow. Please contact Infectious Disease for any questions or concerns. ++++++++++++++++++++++++++++++++++++++++++++++++++++++++++++++++++++++++ Physical Exam: General: NAD Neck: Supple. No masses. HEENT: PERRL. Normal lids and conjunctiva. Moist mucous membranes. Oropharynx without lesions, exudates or excessive erythema. Normal appearance of the external aspects of the nose and ears. Heart: Regular rhythm, normal rate. Aortic systolic ejection murmur present. No lower extremity edema noted. Lungs: Normal respiratory effort. Clear to auscultation bilaterally. No wheezes. No crackles. Abdomen: Soft. Non-tender. Non-distended. Normal bowel sounds. No masses or abdominal hernia. Msk: No digital cyanosis. Normal tone in all 4 limbs. Skin: Warm and dry, no rashes. Left shoulder blister with scab. Neuro: Lethargic but oriented to person, place, and time when arousable. No facial droop or slurred speech. Extra-ocular movements intact. Sensation intact to soft touch in all 4 limbs. Decreased strength in upper and lower extremities. Psych: Appropriate mood. Full affect when interactive. Oriented to person, place, time, and situation when arousable. Plan discussed with: Patient Dietary Evaluation Review Comments: Nutrition Recommendation: 1) EN Glucerna 1.2Cal @ 55ml/hr x 24hr (goal) along with Pro-stat 1 pk TID. Water flush 50ml Q6H if allowed, adjust PRN. TF at goal volume along with Pro-stat provide 1884 kcal (100%), 124 gm protein (91%), and 1263 ml free water(including flush). 2) TPN if NPO >7 days 3) Monitor NPO status, lab values, weight trend, and I/O Expected Outcomes/Goals: Intake to meet >75% estimated needs Lab values to improve FU 2-3 days RUDDY VARELA MD Aug 01, 2025 16:10
[2025-08-01] MEDS: METOPROLOL TARTRATE 25 MG TAB PO SCH (22:12)
[2025-08-02] VITALS (107 sets, daily range): BP systolic 79–157; BP diastolic 49–98; PULSE 70–100; RESP 9–31; TEMP 45.9; O2SAT 93–100
--- NOTE | 2025-08-02 00:37 | DVHPN2 ---
Progress Note - Dictate Date Seen: Aug 01, 2025 Has the PT tested + for MRSA If YES, has PT been informed?: No Medical Necessity Reason Pt with a Central, PICC or Fol: No Subjective Patient was seen and evaluated in follow up in the ICU. Patient is intubated and sedated on ventilator. 30% FiO2. Patient's eyes are residential open, he moves extremities, questionably responsive to verbal commands. NA 151, BUN 30. Chest x-ray shows cardiomegaly with mild pulmonary vascular congestion. CT head: no evidence of acute intracranial abnormality. vital signs Vital Sign Date Time Temp Pulse Resp B/P (MAP) Pulse Ox O2 Delivery O2 Flow Rate FiO2 08/01/25 14:00 30 08/01/25 14:00 92 08/01/25 14:00 24 96 Mechanical Ventilator+ 08/01/25 13:58 134/98 (110) 08/01/25 06:45 100.2 212.4 Total Intake and Output 07/31/25 07/31/25 08/01/25 15:00 23:00 07:00 Intake Total 3.75 ml 930 ml 580 ml Output Total 650 ml 1000 ml Balance 3.75 ml 280 ml -420 ml medications Current Medications Medications Dose Ordered Sig/Lizabeth Route Start Time Stop Time Status Last Admin Dose Admin Ondansetron HCl 4 mg Q4HP PRN IV 07/22/25 15:00 Nitroglycerin 0.4 mg Q5MINP PRN SL 07/22/25 15:00 Diagnostic Test (Pha) 1 strip ACHS 07/22/25 17:00 08/01/25 11:30 1 STRIP Insulin Human Regular ACHS SC 07/22/25 17:00 08/01/25 11:30 2 UNITS Dextrose 50 ml UD PRN IV 07/22/25 16:30 Acetaminophen 500 mg Q6HP PRN PO 07/23/25 17:45 07/25/25 01:52 500 MG Docusate Sodium 100 mg BID PO 07/23/25 22:00 07/31/25 22:41 100 MG Memantine 5 mg HS PO 07/23/25 22:00 07/31/25 22:32 5 MG Fentanyl Citrate 250 ml @ 2.5 mls/hr Q24H IV 07/24/25 02:45 07/28/25 05:52 25 MLS/HR Midazolam HCl 100 ml @ 1 mls/hr Q24H IV 07/24/25 02:45 Cancel Fentanyl Citrate 250 ml @ 2.5 mls/hr Q24H IV 07/24/25 02:45 Cancel Pantoprazole Sodium 40 mg DAILY IV 07/25/25 10:00 08/01/25 10:35 40 MG Norepinephrine Bitartrate 250 ml @ 3.75 mls/hr Q24H IV 07/25/25 10:45 07/31/25 00:47 3.75 MLS/HR Amiodarone HCl 200 mg Q12HR GT 07/25/25 22:00 08/01/25 10:34 200 MG Azithromycin 250 ml @ 125 mls/hr DAILY IV 07/28/25 10:00 Cancel Doxycycline Hyclate 100 ml @ 50 mls/hr Q12H IV 07/27/25 13:15 08/01/25 13:15 50 MLS/HR Purified Water 150 ml Q4HR NG 07/30/25 14:00 08/01/25 14:13 150 ML Enteral Nutritional Formula 1,000 ml 60ML/HR GT 07/30/25 16:45 08/01/25 04:26 1,000 ML Hydralazine HCl 10 mg Q6HP PRN IV 07/30/25 16:45 08/01/25 05:45 10 MG Apixaban 2.5 mg BID GT 07/31/25 22:00 08/01/25 10:34 2.5 MG Aspirin 81 mg DAILY GT 08/01/25 10:00 08/01/25 10:34 81 MG Atorvastatin Calcium 40 mg HS GT 07/31/25 22:00 07/31/25 22:33 40 MG Empaglifozin 25 mg DAILY GT 08/01/25 10:00 08/01/25 10:34 25 MG Metoprolol Tartrate 12.5 mg BID PO 08/01/25 22:00 objective GENERAL: Ill appearing, intubated and sedated on ventilator. EYES: PERRL, EOMI. Anicteric. HENT: Moist mucous membranes. LUNGS: Crackles to bilateral breath sounds. CARDIOVASCULAR: Irregular rate and rhythm. ABDOMEN: Soft, non-tender and non-distended. EXTREMITIES: No edema. SKIN: Warm, dry. laboratory and microbiology Laboratory Tests 08/01/25 02:32 Test 08/01/25 02:32 Range/Units Serum Glucose 170 H 74-106 mg/dL Problem List Non ST-elevation myocardial infarction, questionable type 1. Paroxysmal atrial fibrillation/atrial flutter, now NSR (on Eliquis therapy at home). [place] decompensated HFrEF, NYHA Class III. Presence of dual-chamber pacemaker ([employer]). Acute hypoxic respiratory failure. Diabetes mellitus, newly diagnosed. Hypertension. Dyslipidemia. Former smoker/alcoholic. Obesity. Assessment/Plan Continued all current supportive medical care. Amiodarone. Eliquis. Aspirin, Lipitor, Metoprolol. IV antibiotics as ordered. IV Hydralazine for SBP >150. GI prophylactics. Vasopressors for hemodynamic support. Additional plan as per the hospital course. Critical care time of 45 minutes provided to include time spent evaluation of patient at bedside, when appropriate patient/family education for diagnosis, treatment plan, review of pertinent medical information and discussion of care with specialty providers and PCP. Mechanical ventilator parameters, treatment and adjustments have personally been reviewed by me and treatment plan by chief investigator has also been reviewed. Dietary Evaluation Review Comments: Nutrition Recommendation: 1) EN Glucerna 1.2Cal @ 55ml/hr x 24hr (goal) along with Pro-stat 1 pk TID. Water flush 50ml Q6H if allowed, adjust PRN. TF at goal volume along with Pro-stat provide 1884 kcal (100%), 124 gm protein (91%), and 1263 ml free water(including flush). 2) TPN if NPO >7 days 3) Monitor NPO status, lab values, weight trend, and I/O Expected Outcomes/Goals: Intake to meet >75% estimated needs Lab values to improve FU 2-3 days Plan discussed with: ANUPAMA Coleman MD Aug 01, 2025 15:28
[2025-08-02 04:02] LABS: Hematocrit 47.7 % (41.0-53.0); Hemoglobin 16.0 g/dL (13.5-17.5); Mean Corpuscular Hemoglobin 32.4 pg (28.0-32.0); Mean Corpuscular Volume 96.8 fL (80.0-100.0); Nucleated Red Blood Cells % 0.1 %
[2025-08-02 04:21] LABS: Anion Gap 13 (5-15); Carbon Dioxide 29 mmol/L (20-31); Potassium 3.6 mmol/L (3.5-5.1)
[2025-08-02 04:22] LABS: Calcium 9.6 mg/dL (8.7-10.4)
[2025-08-02 04:26] LABS: Chloride 110 mmol/L (98-107); Sodium 152 mmol/L (136-145)
[2025-08-02 04:27] LABS: BUN/Creatinine Ratio 28.9 (10.0-20.0)
[2025-08-02 04:31] LABS: Blood Urea Nitrogen 24 mg/dL (9-23); Glucose 138 mg/dL (74-106)
--- NOTE | 2025-08-02 05:12 | DVH ---
CHEST RADIOGRAPH Indication: INTUBATED Technique: Single frontal view of the chest was obtained COMPARISON: XY CHEST PORTABLE on DOS: 08/01/25, XY CHEST XRAY 1 VIEW on DOS: 07/31/25, XY CHEST XRAY 1 VIEW on DOS: 07/30/25, XY CHEST PORTABLE on DOS: 07/28/25, XY CHEST XRAY 1 VIEW on DOS: 07/28/25 FINDINGS: Lines and Tubes: Unchanged. Lungs: Moderate diffuse increased prominence of the pulmonary vasculature. No evidence of focal consolidation. Pleura: No effusion. No pneumothorax. Cardiomediastinal contours: Unremarkable Bones: Unremarkable IMPRESSION: 1. Moderate pulmonary vascular congestion. 2. Lines and tubes unchanged.
[2025-08-02 07:08] LABS: Base Excess -0.2 mmol/L (-2.0-3.0)
[2025-08-02] MEDS: BISACODYL 10 MG RECT SUPP PR ONE (09:00)
--- NOTE | 2025-08-02 09:00 | DVHPN2 ---
Subjective Patient intubated. Denies any symptoms at this time. Reviewed: Care Plan, H&P, Labs, Medications, Previous Orders, Radiology, Other (Consultations) Changes from previous H/P or p: No Changes General: Per HPI Objective Vitals Vital Signs Date Time Temp Pulse Resp B/P (MAP) Pulse Ox O2 Delivery O2 Flow Rate FiO2 08/02/25 06:40 157/87 08/02/25 06:30 99.9 82 19 95 211.8 08/02/25 06:00 Mechanical Ventilator+ 30 30 Intake/Output Intake and Output 08/02/25 07:00 Intake Total 1975 ml Output Total 2200 ml Balance -225 ml Intake Oral 200 ml IV Total 525 ml Tube Feeding 800 ml Other 450 ml Output Urine Total 2200 ml General Appearance: Alert, Cooperative, mild distress, Other (Patient endotracheally intubated) HEENT: Atraumatic, PERRLA, Other (Right IJ central line with no signs of bleeding/infection) Lungs: Clear to auscultation, Other (Mechanical ventilation sounds) Chest/Breasts: Other (Pacemaker in place) Cardiovascular: Normal S1, Normal S2, Other (V paced) Abdomen: Normal bowel sounds, Soft Genitourinary: Other ([place]'s catheter in place) Musculoskeletal: Weak motor strength RUE, Weak motor strength LUE, Weak motor strength RLE, Weak motor strength LLE Neuro: Cranial nerves 3-12 NL, Other (Non responsive) Skin: Dry, Intact Psych/Mental Status: Other (Non responsive) Medications Current Medications Medications Dose Ordered Sig/Lizabeth Route Start Time Stop Time Status Last Admin Dose Admin Ondansetron HCl 4 mg Q4HP PRN IV 07/22/25 15:00 Nitroglycerin 0.4 mg Q5MINP PRN SL 07/22/25 15:00 Diagnostic Test (Pha) 1 strip ACHS 07/22/25 17:00 08/02/25 06:47 1 STRIP Insulin Human Regular ACHS SC 07/22/25 17:00 08/02/25 06:29 2 UNITS Dextrose 50 ml UD PRN IV 07/22/25 16:30 Acetaminophen 500 mg Q6HP PRN PO 07/23/25 17:45 07/25/25 01:52 500 MG Docusate Sodium 100 mg BID PO 07/23/25 22:00 08/01/25 22:11 100 MG Memantine 5 mg HS PO 07/23/25 22:00 08/01/25 22:11 5 MG Fentanyl Citrate 250 ml @ 2.5 mls/hr Q24H IV 07/24/25 02:45 07/28/25 05:52 25 MLS/HR Midazolam HCl 100 ml @ 1 mls/hr Q24H IV 07/24/25 02:45 Cancel Fentanyl Citrate 250 ml @ 2.5 mls/hr Q24H IV 07/24/25 02:45 Cancel Pantoprazole Sodium 40 mg DAILY IV 07/25/25 10:00 08/01/25 10:35 40 MG Norepinephrine Bitartrate 250 ml @ 3.75 mls/hr Q24H IV 07/25/25 10:45 07/31/25 00:47 3.75 MLS/HR Amiodarone HCl 200 mg Q12HR GT 07/25/25 22:00 08/01/25 22:11 200 MG Azithromycin 250 ml @ 125 mls/hr DAILY IV 07/28/25 10:00 Cancel Purified Water 150 ml Q4HR NG 07/30/25 14:00 08/02/25 06:00 150 ML Enteral Nutritional Formula 1,000 ml 60ML/HR GT 07/30/25 16:45 08/02/25 06:30 1,000 ML Hydralazine HCl 10 mg Q6HP PRN IV 07/30/25 16:45 08/02/25 06:40 10 MG Apixaban 2.5 mg BID GT 07/31/25 22:00 08/01/25 22:11 2.5 MG Aspirin 81 mg DAILY GT 08/01/25 10:00 08/01/25 10:34 81 MG Atorvastatin Calcium 40 mg HS GT 07/31/25 22:00 08/01/25 22:11 40 MG Empaglifozin 25 mg DAILY GT 08/01/25 10:00 08/01/25 10:34 25 MG Levofloxacin/ Dextrose 150 ml @ 100 mls/hr DAILY IV 08/02/25 10:00 Metoprolol Tartrate 25 mg BID PO 08/02/25 10:00 UNV Hydrochlorothiazide 25 mg DAILY GT 08/02/25 10:00 UNV Laboratory Results Laboratory Tests 08/02/25 03:40 Chemistry Test 08/02/25 03:40 Calcium Level 9.6 mg/dL (8.7-10.4) Urinalysis Test 07/22/25 10:51 Urine Color Light-yellow (Yellow) Urine Clarity Clear (Clear) Urine pH 5.5 (5.0-9.0) Urine Specific [place] 1.025 (1.001-1.035) Urine Protein Negative (Negative) Urine Ketones Negative (Negative) Urine Blood 2+ /uL (Negative) H Urine Nitrite Negative (Negative) Urine Bilirubin Negative (Negative) Urine Urobilinogen Normal mg/dL (Negative) Urine Leukocyte Esterase Negative /uL (Negative) Urine RBC 57 /hpf (0 - 3) Urine Microscopic WBC 11 /HPF (0-3) H Urine Squamous Epithelial Cells None seen /hpf (<5) Urine Bacteria None seen /hpf (None Seen) Urine Glucose 4+ mg/dL (Normal) H Blood Gas Results Test 08/02/25 07:04 Arterial Blood pH 7.506 (7.350-7.450) FiO2 % 30.0 Microbiology Microbiology Date/Time Source Procedure Growth Status 07/27/25 11:21 Blood Blood Culture - Final NO GROWTH AFTER 5 DAYS OF INCUBATION. Complete 07/24/25 03:35 Urine - [place] Urine Culture - Final Complete 07/24/25 03:26 Trachea Gram Stain - Final Complete 07/24/25 03:26 Trachea Respiratory Culture - Final Complete Labs and/or images reviewed: Labs reviewed by me, Image(s) reviewed by me Assessment/Plan Assessment/Plan Impression: -acute metabolic encephalopathy -acute hypoxic respiratory failure -questionable acute seizure activity with postictal state -acute on chronic diastolic heart failure -atrial flutter with controlled rate -recent placement of dual-chamber pacemaker -? History of ETOH -acute kidney injury, vasomotor nephropathy -obesity -primary hypertension -NSTEMI, probably type 2 -rhabdomyolysis Plan: Events: Patient off sedation. Patient is following commands. -increase metoprolol tartrate 25 mg p.o. b.i.d. -ID consultation: Recommendations reviewed. -neurology recommendations appreciated. Cardiology consultation: Continue current anticoagulation -continue new tube feeding with free water -Decrease respiratory rate to 16 -repeat labs, chest x-ray, ABG in a.m. -social service consultation for transfer to [facility] Critical care time spent with patient discussing and formulating plan of care: 40 minutes. This does not include time spent performing procedures. This medical document was created using an electronic medical record system with [employer] computerized dictation system. Although this document has been carefully reviewed, there may still be some phonetic and typographical errors. These areas are purely typographical due to imperfections of the software programs, and do not reflect any compromise in the patient's medical care. Plan discussed with: Patient, Other (RN) My Orders Orders - FLORY OSMAN NP Procedure Category Date Status Time Metoprolol Tartrate PHA 08/02/25 Logged Tablet (Lopressor Ta 10:00 Ventilator Orders RT 08/02/25 Transmitted 07:56 Hydrochlorothiazide PHA 08/02/25 Logged Tablet (Hydrochlorot 10:00 Basic Metabolic Panel LAB 08/03/25 Verified 04:00 B-Type Natriuretic LAB 08/03/25 Verified Peptide 04:00 Chest Portable XY 08/03/25 Logged 04:00 Date of Service: Aug 02, 2025 Billing Provider: FLORY OSMAN NP Common Visit Codes: [id number] CARE 30-74 MIN FLORY OSMAN NP Aug 02, 2025 09:00
--- NOTE | 2025-08-02 10:14 | DVHPN2 ---
Progress Note - Dictate Date Seen: Aug 02, 2025 Has the PT tested + for MRSA If YES, has PT been informed?: No Medical Necessity Reason Pt with a Central, PICC or Fol: No Subjective Mr. Renee is a 80 years old right-handed gentleman with a history of hypertension, diabetes, atrial fibrillation, dementia, obesity, he came to the [facility] on 07/22/2025 with a chief complaint of altered mental status. I have seen and examined the patient in ICU, I have talked to his nurse, he is awake, he tracks, but he followed his nurse but not my verbal commands. He moves the arms He is on CPAP He spiked temperature According to ER record, memantine and Eliquis were in his home medication list Urinalysis, 07/22/2025: WBC: 11, urine leukocyte esterase: Negative ABG, 07/26/2025: Combined metabolic and respiratory acidosis Blood culture, 07/22/2025: No growth Blood culture, 07/24/2025: WBC/HB/PLT/MCV, 07/26/2025: 11.9/75/147/97.7 PT/INR/ABG, 07/25/2025: 12.2/1.17/34.7, 07/26/2025: 12.5/1.2/38.4 Na, 07/28/25: 144, 07/29/2025: 147, 07/30/2025: 150, 07/31/2025: 151 BUN/CR, 07/25/2025: 17/1.44 GFR, 07/25/2025: 49, 07/31/2025: 32/0.94 HGB A1c, 07/24/2025: 7.8 TBI/AST/ALT/AP, 07/25/2025: 0.8/45/42/68 TG/HDL/LDL/HDL, 07/24/2025: 100/103/42/47 Vitamin B12, 07/24/25: 1658 TSH, 07/24/2025: 1.34 Chest x-ray, 07/24/2025: Heart is prominent size. There is moderate pulmonary vascular congestion. Dual lead left cardiac device. Enteric tube tip is not well visualized. Endotracheal tube is 4 cm from the de Chest x-ray, 07/26/2025: Lines and tubes in satisfactory position. Increased interstitial prominence. This may represent pulmonary vascular congestion and/or viral pneumonia. Chest x-ray, 07/31/2025: 1. Lines and tubes unchanged. 2. Stable diffuse increased prominence of the pulmonary vasculature CT head, 07/22/2025: No acute intracranial abnormality CT head, 08/01/2025: No evidence of acute intracranial abnormality vital signs Vital Sign Date Time Temp Pulse Resp B/P (MAP) Pulse Ox O2 Delivery O2 Flow Rate FiO2 08/02/25 08:58 83 17 140/84 (102) 95 30 08/02/25 08:00 Mechanical Ventilator+ 08/02/25 06:30 99.9 211.8 Total Intake and Output 08/01/25 08/01/25 08/02/25 15:00 23:00 07:00 Intake Total 875 ml 1100 ml Output Total 1200 ml 1000 ml Balance -325 ml 100 ml medications Current Medications Medications Dose Ordered Sig/Lizabeth Route Start Time Stop Time Status Last Admin Dose Admin Ondansetron HCl 4 mg Q4HP PRN IV 07/22/25 15:00 Nitroglycerin 0.4 mg Q5MINP PRN SL 07/22/25 15:00 Diagnostic Test (Pha) 1 strip ACHS 07/22/25 17:00 08/02/25 06:47 1 STRIP Insulin Human Regular ACHS SC 07/22/25 17:00 08/02/25 06:29 2 UNITS Dextrose 50 ml UD PRN IV 07/22/25 16:30 Acetaminophen 500 mg Q6HP PRN PO 07/23/25 17:45 07/25/25 01:52 500 MG Docusate Sodium 100 mg BID PO 07/23/25 22:00 08/01/25 22:11 100 MG Memantine 5 mg HS PO 07/23/25 22:00 08/01/25 22:11 5 MG Fentanyl Citrate 250 ml @ 2.5 mls/hr Q24H IV 07/24/25 02:45 07/28/25 05:52 25 MLS/HR Midazolam HCl 100 ml @ 1 mls/hr Q24H IV 07/24/25 02:45 Cancel Fentanyl Citrate 250 ml @ 2.5 mls/hr Q24H IV 07/24/25 02:45 Cancel Pantoprazole Sodium 40 mg DAILY IV 07/25/25 10:00 08/01/25 10:35 40 MG Norepinephrine Bitartrate 250 ml @ 3.75 mls/hr Q24H IV 07/25/25 10:45 07/31/25 00:47 3.75 MLS/HR Amiodarone HCl 200 mg Q12HR GT 07/25/25 22:00 08/01/25 22:11 200 MG Azithromycin 250 ml @ 125 mls/hr DAILY IV 07/28/25 10:00 Cancel Purified Water 150 ml Q4HR 07/30/25 14:00 08/02/25 06:00 150 ML Enteral Nutritional Formula 1,000 ml 60ML/HR GT 07/30/25 16:45 08/02/25 06:30 1,000 ML Hydralazine HCl 10 mg Q6HP PRN IV 07/30/25 16:45 08/02/25 06:40 10 MG Apixaban 2.5 mg BID GT 07/31/25 22:00 08/01/25 22:11 2.5 MG Aspirin 81 mg DAILY GT 08/01/25 10:00 08/01/25 10:34 81 MG Atorvastatin Calcium 40 mg HS GT 07/31/25 22:00 08/01/25 22:11 40 MG Empaglifozin 25 mg DAILY GT 08/01/25 10:00 08/01/25 10:34 25 MG Levofloxacin/ Dextrose 150 ml @ 100 mls/hr DAILY IV 08/02/25 10:00 Metoprolol Tartrate 25 mg BID 08/02/25 10:00 Hydrochlorothiazide 25 mg DAILY 08/02/25 10:00 objective The patient is well-nourished and well-developed with no distress. The patient is intubated MENTAL STATUS: Subjective CRANIAL NERVES: Pupils are equal, round and reactive. There are conjugated eye movement. No signs of facial weakness. There are gagging or coughing reflexes oral care SENSATION: Responses to pain stimuli. MOTOR: Normal tone in the upper and lower extremity. Normal muscle bulk. No fasciculations. Moves the arms REFLEXES: Deep tendon reflexes are symmetrical. No pathological reflexes. CEREBELLAR/COORDINATION: Deferred GAIT/STATION: deferred. laboratory and microbiology Laboratory Tests 08/02/25 03:40 Test 08/02/25 03:40 Range/Units Serum Glucose 138 H 74-106 mg/dL Problem List Coma, fever Metabolic encephalopathy Toxic encephalopathy Hypoxic encephalopathy Possible community-acquired pneumonia vs a typical viral pneumonia Possible drug fever Rule out intracranial infection Dementia, likely Alzheimer disease, he may have a least moderate degree of dementia AFib Coagulopathy secondary to anticoagulation treatment Acute respiratory failure Fever Possible community-acquired pneumonia vs a typical viral pneumonia Possible drug fever Assessment/Plan Monitoring Supportive treatment ICU care Respiratory support/vent management Stabilize vitals Oxygen IV antibiotics Aspirin 81 mg daily Eliquis 2.5 mg b.i.d. Infectious disease consultation Try to extubate More recommendation per clinical course This medical document was created using an electronic medical record system with [employer] dictation system. Although this document has been carefully reviewed, there may still be some phonetic and typographical errors. These areas are purely typographical due to imperfections of the software programs, and do not reflect any compromise in the patient's medical care. Prognosis poor Dietary Evaluation Review Comments: Nutrition Recommendation: 1) EN Glucerna 1.2Cal @ 55ml/hr x 24hr (goal) along with Pro-stat 1 pk TID. Water flush 50ml Q6H if allowed, adjust PRN. TF at goal volume along with Pro-stat provide 1884 kcal (100%), 124 gm protein (91%), and 1263 ml free water(including flush). 2) TPN if NPO >7 days 3) Monitor NPO status, lab values, weight trend, and I/O Expected Outcomes/Goals: Intake to meet >75% estimated needs Lab values to improve FU 2-3 days Plan discussed with: Other CHRISTOPHER BLACK MD Aug 02, 2025 10:14
[2025-08-02 12:04] LABS: Base Excess 1.7 mmol/L (-2.0-3.0)
[2025-08-02] MEDS: hydroCHLOROthiazide 25 MG TAB NG SCH (12:22)
[2025-08-02] MEDS: METOPROLOL TARTRATE 25 MG TAB NG SCH (12:24)
--- NOTE | 2025-08-02 12:51 | DVHPN2 ---
Progress Note - Dictate Date Seen: Aug 02, 2025 Has the PT tested + for MRSA If YES, has PT been informed?: No Medical Necessity Reason Pt with a Central, PICC or Fol: No vital signs Vital Sign Date Time Temp Pulse Resp B/P (MAP) Pulse Ox O2 Delivery O2 Flow Rate FiO2 08/02/25 12:24 91 130/79 08/02/25 10:29 31 95 30 08/02/25 08:00 Mechanical Ventilator+ 08/02/25 06:30 99.9 211.8 Total Intake and Output 08/01/25 08/01/25 08/02/25 15:00 23:00 07:00 Intake Total 875 ml 1100 ml Output Total 1200 ml 1000 ml Balance -325 ml 100 ml medications Current Medications Medications Dose Ordered Sig/Lizabeth Route Start Time Stop Time Status Last Admin Dose Admin Ondansetron HCl 4 mg Q4HP PRN IV 07/22/25 15:00 Nitroglycerin 0.4 mg Q5MINP PRN SL 07/22/25 15:00 Diagnostic Test (Pha) 1 strip ACHS 07/22/25 17:00 08/02/25 06:47 1 STRIP Insulin Human Regular ACHS SC 07/22/25 17:00 08/02/25 06:29 2 UNITS Dextrose 50 ml UD PRN IV 07/22/25 16:30 Acetaminophen 500 mg Q6HP PRN PO 07/23/25 17:45 07/25/25 01:52 500 MG Docusate Sodium 100 mg BID PO 07/23/25 22:00 08/01/25 22:11 100 MG Memantine 5 mg HS PO 07/23/25 22:00 08/01/25 22:11 5 MG Fentanyl Citrate 250 ml @ 2.5 mls/hr Q24H IV 07/24/25 02:45 07/28/25 05:52 25 MLS/HR Midazolam HCl 100 ml @ 1 mls/hr Q24H IV 07/24/25 02:45 Cancel Fentanyl Citrate 250 ml @ 2.5 mls/hr Q24H IV 07/24/25 02:45 Cancel Pantoprazole Sodium 40 mg DAILY IV 07/25/25 10:00 08/02/25 12:19 40 MG Norepinephrine Bitartrate 250 ml @ 3.75 mls/hr Q24H IV 07/25/25 10:45 12/1/25 00:47 3.75 MLS/HR Amiodarone HCl 200 mg Q12HR GT 07/25/25 22:00 08/02/25 12:18 200 MG Azithromycin 250 ml @ 125 mls/hr DAILY IV 07/28/25 10:00 Cancel Purified Water 150 ml Q4HR NG 07/30/25 14:00 08/02/25 10:00 150 ML Enteral Nutritional Formula 1,000 ml 60ML/HR GT 07/30/25 16:45 08/02/25 06:30 1,000 ML Hydralazine HCl 10 mg Q6HP PRN IV 07/30/25 16:45 08/02/25 06:40 10 MG Apixaban 2.5 mg BID GT 07/31/25 22:00 08/02/25 12:09 2.5 MG Aspirin 81 mg DAILY GT 08/01/25 10:00 08/02/25 12:18 81 MG Atorvastatin Calcium 40 mg HS GT 07/31/25 22:00 08/01/25 22:11 40 MG Empaglifozin 25 mg DAILY GT 08/01/25 10:00 08/02/25 12:18 25 MG Levofloxacin/ Dextrose 150 ml @ 100 mls/hr DAILY IV 08/02/25 10:00 08/02/25 12:09 100 MLS/HR Metoprolol Tartrate 25 mg BID NG 08/02/25 10:00 08/02/25 12:24 25 MG Hydrochlorothiazide 25 mg DAILY NG 08/02/25 10:00 08/02/25 12:22 25 MG laboratory and microbiology Laboratory Tests 08/02/25 03:40 Test 08/02/25 03:40 Range/Units Serum Glucose 138 H 74-106 mg/dL Assessment/Plan ICU rounds 80 yo male, impression s/p cardiac arrest acute hypoxemic resp failure pulm congestion CHF Patient seen and examined on ICU events on mechanical ventilation s/p intubation PEEP 5, FiO2 30% this morning more awake tolerated PS mode for 1 hr became more tachypneic labs and imaging reviewed ABG reviewed management plan vent support cont diuresis cont abx daily weaning trials Pressure support 7/5, extubate when ready cont nutrition monitor renal function etc dvt proph full code crit care time 35 min Dietary Evaluation Review Comments: Nutrition Recommendation: 1) EN Glucerna 1.2Cal @ 55ml/hr x 24hr (goal) along with Pro-stat 1 pk TID. Water flush 50ml Q6H if allowed, adjust PRN. TF at goal volume along with Pro-stat provide 1884 kcal (100%), 124 gm protein (91%), and 1263 ml free water(including flush). 2) TPN if NPO >7 days 3) Monitor NPO status, lab values, weight trend, and I/O Expected Outcomes/Goals: Intake to meet >75% estimated needs Lab values to improve FU 2-3 days Plan discussed with: Patient JHON COLBY MD Aug 02, 2025 12:51
[2025-08-03] VITALS (78 sets, daily range): BP systolic 86–129; BP diastolic 49–87; PULSE 70–92; RESP 13–29; TEMP 97.7–99.7; O2SAT 94–100
--- NOTE | 2025-08-03 01:13 | DVHPN2 ---
Progress Note - Dictate Date Seen: Aug 02, 2025 Has the PT tested + for MRSA If YES, has PT been informed?: No Medical Necessity Reason Pt with a Central, PICC or Fol: No Subjective Patient was seen and evaluated in follow up in the ICU. Patient is intubated and sedated on ventilator. 30% FiO2. Patient is awake and tracks but does not follow verbal commands. NA 152, CL 110, BUN 24. Chest x-ray shows moderate pulmonary vascular congestion. vital signs Vital Sign Date Time Temp Pulse Resp B/P (MAP) Pulse Ox O2 Delivery O2 Flow Rate FiO2 08/02/25 12:24 91 130/79 08/02/25 10:29 31 95 30 08/02/25 08:00 Mechanical Ventilator+ 08/02/25 06:30 99.9 211.8 Total Intake and Output 08/01/25 08/01/25 08/02/25 15:00 23:00 07:00 Intake Total 875 ml 1100 ml Output Total 1200 ml 1000 ml Balance -325 ml 100 ml medications Current Medications Medications Dose Ordered Sig/Lizabeth Route Start Time Stop Time Status Last Admin Dose Admin Ondansetron HCl 4 mg Q4HP PRN IV 07/22/25 15:00 Nitroglycerin 0.4 mg Q5MINP PRN SL 07/22/25 15:00 Diagnostic Test (Pha) 1 strip ACHS 07/22/25 17:00 08/02/25 11:30 1 STRIP Insulin Human Regular ACHS SC 07/22/25 17:00 08/02/25 11:30 3 UNITS Dextrose 50 ml UD PRN IV 07/22/25 16:30 Acetaminophen 500 mg Q6HP PRN PO 07/23/25 17:45 07/25/25 01:52 500 MG Docusate Sodium 100 mg BID PO 07/23/25 22:00 08/01/25 22:11 100 MG Memantine 5 mg HS PO 07/23/25 22:00 08/01/25 22:11 5 MG Fentanyl Citrate 250 ml @ 2.5 mls/hr Q24H IV 07/24/25 02:45 07/28/25 05:52 25 MLS/HR Midazolam HCl 100 ml @ 1 mls/hr Q24H IV 07/24/25 02:45 Cancel Fentanyl Citrate 250 ml @ 2.5 mls/hr Q24H IV 07/24/25 02:45 Cancel Pantoprazole Sodium 40 mg DAILY IV 07/25/25 10:00 08/02/25 12:19 40 MG Norepinephrine Bitartrate 250 ml @ 3.75 mls/hr Q24H IV 07/25/25 10:45 07/31/25 00:47 3.75 MLS/HR Amiodarone HCl 200 mg Q12HR GT 07/25/25 22:00 08/02/25 12:18 200 MG Azithromycin 250 ml @ 125 mls/hr DAILY IV 07/28/25 10:00 Cancel Purified Water 150 ml Q4HR NG 07/30/25 14:00 08/02/25 10:00 150 ML Enteral Nutritional Formula 1,000 ml 60ML/HR GT 07/30/25 16:45 08/02/25 06:30 1,000 ML Hydralazine HCl 10 mg Q6HP PRN IV 07/30/25 16:45 08/02/25 06:40 10 MG Apixaban 2.5 mg BID GT 07/31/25 22:00 08/02/25 12:09 2.5 MG Aspirin 81 mg DAILY GT 08/01/25 10:00 08/02/25 12:18 81 MG Atorvastatin Calcium 40 mg HS GT 07/31/25 22:00 08/01/25 22:11 40 MG Empaglifozin 25 mg DAILY GT 08/01/25 10:00 08/02/25 12:18 25 MG Levofloxacin/ Dextrose 150 ml @ 100 mls/hr DAILY IV 08/02/25 10:00 08/02/25 12:09 100 MLS/HR Metoprolol Tartrate 25 mg BID NG 08/02/25 10:00 08/02/25 12:24 25 MG Hydrochlorothiazide 25 mg DAILY NG 08/02/25 10:00 08/02/25 12:22 25 MG objective GENERAL: Ill appearing, intubated and sedated on ventilator. EYES: PERRL, EOMI. Anicteric. HENT: Moist mucous membranes. LUNGS: Crackles to bilateral breath sounds. CARDIOVASCULAR: Irregular rate and rhythm. ABDOMEN: Soft, non-tender and non-distended. EXTREMITIES: No edema. SKIN: Warm, dry. laboratory and microbiology Laboratory Tests 08/02/25 03:40 Test 08/02/25 03:40 Range/Units Serum Glucose 138 H 74-106 mg/dL Problem List Non ST-elevation myocardial infarction, questionable type 1. Paroxysmal atrial fibrillation/atrial flutter, now NSR (on Eliquis therapy at home). [place] decompensated HFrEF, NYHA Class III. Presence of dual-chamber pacemaker (Medtronic). Acute hypoxic respiratory failure. Diabetes mellitus, newly diagnosed. Hypertension. Dyslipidemia. Former smoker/alcoholic. Obesity. Assessment/Plan Continued all current supportive medical care. Amiodarone. Eliquis. Aspirin, Lipitor, Metoprolol. IV antibiotics as ordered. IV Hydralazine for SBP >150. GI prophylactics. Vasopressors for hemodynamic support. Additional plan as per the hospital course. Critical care time of 45 minutes provided to include time spent evaluation of patient at bedside, when appropriate patient/family education for diagnosis, treatment plan, review of pertinent medical information and discussion of care with specialty providers and PCP. Mechanical ventilator parameters, treatment and adjustments have personally been reviewed by me and treatment plan by solar technician has also been reviewed. Dietary Evaluation Review Comments: Nutrition Recommendation: 1) EN Glucerna 1.2Cal @ 55ml/hr x 24hr (goal) along with Pro-stat 1 pk TID. Water flush 50ml Q6H if allowed, adjust PRN. TF at goal volume along with Pro-stat provide 1884 kcal (100%), 124 gm protein (91%), and 1263 ml free water(including flush). 2) TPN if NPO >7 days 3) Monitor NPO status, lab values, weight trend, and I/O Expected Outcomes/Goals: Intake to meet >75% estimated needs Lab values to improve FU 2-3 days Plan discussed with: ANUPAMA Coleman MD Aug 02, 2025 14:19
[2025-08-03 03:54] LABS: Hematocrit 49.2 % (41.0-53.0); Hemoglobin 15.9 g/dL (13.5-17.5); Mean Corpuscular Hemoglobin 31.7 pg (28.0-32.0); Mean Corpuscular Volume 97.9 fL (80.0-100.0); Nucleated Red Blood Cells % 0.1 %
[2025-08-03 04:18] LABS: Anion Gap 13 (5-15); Calcium 9.7 mg/dL (8.7-10.4); Carbon Dioxide 29 mmol/L (20-31)
[2025-08-03 04:23] LABS: BUN/Creatinine Ratio 30.1 (10.0-20.0)
[2025-08-03 04:24] LABS: Magnesium 2.5 mg/dL (1.6-2.6)
[2025-08-03 04:33] LABS: Blood Urea Nitrogen 28 mg/dL (9-23); Chloride 111 mmol/L (98-107); Glucose 125 mg/dL (74-106); Potassium 3.4 mmol/L (3.5-5.1); Sodium 153 mmol/L (136-145)
--- NOTE | 2025-08-03 05:58 | DVH ---
CHEST RADIOGRAPH Indication: chf Technique: Single frontal view of the chest was obtained COMPARISON: XY CHEST XRAY 1 VIEW on DOS: 08/02/25, XY CHEST PORTABLE on DOS: 08/01/25, XY CHEST XRAY 1 VIEW on DOS: 07/31/25, XY CHEST XRAY 1 VIEW on DOS: 07/30/25, XY CHEST PORTABLE on DOS: 07/28/25 FINDINGS: Lines and Tubes: Endotracheal tube, enteric catheter and right central venous catheter in satisfactory position. Left chest wall pacemaker. Lungs: Unchanged pulmonary vascular congestion. Pleura: No effusion.No pneumothorax. Cardiomediastinal contours: Cardiomegaly. Bones: Unremarkable IMPRESSION: Lines and tubes in satisfactory position. No significant interval change.
[2025-08-03] MEDS: POTASSIUM CHL 20MEQ/100ML 100 ML IV ONE (06:33)
--- NOTE | 2025-08-03 09:00 | DVHPN2 ---
Subjective Patient intubated. Denies any symptoms at this time. Reviewed: Care Plan, H&P, Labs, Medications, Previous Orders, Radiology, Other (Consultations) Changes from previous H/P or p: No Changes General: Per HPI Objective Vitals Vital Signs Date Time Temp Pulse Resp B/P (MAP) Pulse Ox O2 Delivery O2 Flow Rate FiO2 08/03/25 06:30 70 20 94/59 (71) 97 08/03/25 06:00 30 08/03/25 05:30 Mechanical Ventilator+ 08/03/25 04:00 97.7 97.7 Intake/Output Intake and Output 08/03/25 07:00 Intake Total 600.25 ml Output Total 1850 ml Balance -1249.75 ml Intake Oral 100 ml IV Total 300.25 ml Tube Feeding 200 ml Output Urine Total 1850 ml General Appearance: Alert, Cooperative, mild distress, Other (Patient endotracheally intubated. Patient following commands) HEENT: Atraumatic, PERRLA, Other (Right IJ central line with no signs of bleeding/infection) Lungs: Clear to auscultation, Other (Mechanical ventilation sounds) Chest/Breasts: Other (Pacemaker in place) Cardiovascular: Normal S1, Normal S2, Other (V paced) Abdomen: Normal bowel sounds, Soft Genitourinary: Other ([place]'s catheter in place) Musculoskeletal: Weak motor strength RUE, Weak motor strength LUE, Weak motor strength RLE, Weak motor strength LLE Neuro: Cranial nerves 3-12 NL, Other (Non responsive) Skin: Dry, Intact Psych/Mental Status: Other (Non responsive) Medications Current Medications Medications Dose Ordered Sig/Lizabeth Route Start Time Stop Time Status Last Admin Dose Admin Ondansetron HCl 4 mg Q4HP PRN IV 07/22/25 15:00 Nitroglycerin 0.4 mg Q5MINP PRN SL 07/22/25 15:00 Diagnostic Test (Pha) 1 strip ACHS 07/22/25 17:00 08/03/25 06:33 1 STRIP Insulin Human Regular ACHS SC 07/22/25 17:00 08/02/25 21:58 2 UNITS Dextrose 50 ml UD PRN IV 07/22/25 16:30 Acetaminophen 500 mg Q6HP PRN PO 07/23/25 17:45 07/25/25 01:52 500 MG Docusate Sodium 100 mg BID PO 07/23/25 22:00 08/01/25 22:11 100 MG Memantine 5 mg HS PO 07/23/25 22:00 08/02/25 22:09 5 MG Fentanyl Citrate 250 ml @ 2.5 mls/hr Q24H IV 07/24/25 02:45 07/28/25 05:52 25 MLS/HR Midazolam HCl 100 ml @ 1 mls/hr Q24H IV 07/24/25 02:45 Cancel Fentanyl Citrate 250 ml @ 2.5 mls/hr Q24H IV 07/24/25 02:45 Cancel Pantoprazole Sodium 40 mg DAILY IV 07/25/25 10:00 08/02/25 12:19 40 MG Norepinephrine Bitartrate 250 ml @ 3.75 mls/hr Q24H IV 07/25/25 10:45 07/31/25 00:47 3.75 MLS/HR Amiodarone HCl 200 mg Q12HR GT 07/25/25 22:00 08/02/25 22:09 200 MG Azithromycin 250 ml @ 125 mls/hr DAILY IV 07/28/25 10:00 Cancel Purified Water 150 ml Q4HR NG 07/30/25 14:00 08/03/25 06:00 150 ML Enteral Nutritional Formula 1,000 ml 60ML/HR GT 07/30/25 16:45 08/02/25 06:30 1,000 ML Hydralazine HCl 10 mg Q6HP PRN IV 07/30/25 16:45 08/02/25 06:40 10 MG Apixaban 2.5 mg BID GT 07/31/25 22:00 08/02/25 22:02 2.5 MG Aspirin 81 mg DAILY GT 08/01/25 10:00 08/02/25 12:18 81 MG Atorvastatin Calcium 40 mg HS GT 07/31/25 22:00 08/02/25 22:02 40 MG Empaglifozin 25 mg DAILY GT 08/01/25 10:00 08/02/25 12:18 25 MG Levofloxacin/ Dextrose 150 ml @ 100 mls/hr DAILY IV 08/02/25 10:00 08/02/25 12:09 100 MLS/HR Metoprolol Tartrate 25 mg BID NG 08/02/25 10:00 12/3/25 12:24 25 MG Hydrochlorothiazide 25 mg DAILY NG 08/02/25 10:00 08/02/25 12:22 25 MG Laboratory Results Laboratory Tests 08/03/25 02:31 Chemistry Test 08/03/25 02:31 Calcium Level 9.7 mg/dL (8.7-10.4) Magnesium Level 2.5 mg/dL (1.6-2.6) Cardiac Markers Test 08/03/25 02:31 B-Type Natriuretic Peptide 59.45 pg/mL (0-100) Urinalysis Test 07/22/25 10:51 Urine Color Light-yellow (Yellow) Urine Clarity Clear (Clear) Urine pH 5.5 (5.0-9.0) Urine Specific [place] 1.025 (1.001-1.035) Urine Protein Negative (Negative) Urine Ketones Negative (Negative) Urine Blood 2+ /uL (Negative) H Urine Nitrite Negative (Negative) Urine Bilirubin Negative (Negative) Urine Urobilinogen Normal mg/dL (Negative) Urine Leukocyte Esterase Negative /uL (Negative) Urine RBC 57 /hpf (0 - 3) Urine Microscopic WBC 11 /HPF (0-3) H Urine Squamous Epithelial Cells None seen /hpf (<5) Urine Bacteria None seen /hpf (None Seen) Urine Glucose 4+ mg/dL (Normal) H Blood Gas Results Test 08/02/25 11:50 Arterial Blood pH 7.455 (7.350-7.450) FiO2 % 30.0 Microbiology Microbiology Date/Time Source Procedure Growth Status 07/27/25 11:21 Blood Blood Culture - Final NO GROWTH AFTER 5 DAYS OF INCUBATION. Complete 07/24/25 03:35 Urine - [place] Urine Culture - Final Complete 07/24/25 03:26 Trachea Gram Stain - Final Complete 07/24/25 03:26 Trachea Respiratory Culture - Final Complete Labs and/or images reviewed: Labs reviewed by me, Image(s) reviewed by me Assessment/Plan Assessment/Plan Impression: -acute metabolic encephalopathy -acute hypoxic respiratory failure -questionable acute seizure activity with postictal state -acute on chronic diastolic heart failure -atrial flutter with controlled rate -recent placement of dual-chamber pacemaker -? History of ETOH -acute kidney injury, vasomotor nephropathy -obesity -primary hypertension -NSTEMI, probably type 2 -rhabdomyolysis Plan: Events: Patient off sedation. Patient more awake and following commands. Patient currently on CPAP trial. Possible extubation today. -increase metoprolol tartrate 25 mg p.o. b.i.d. -ID consultation: Recommendations reviewed. -neurology recommendations appreciated. Cardiology consultation: Continue current anticoagulation -continue new tube feeding with free water -repeat labs, chest x-ray, ABG in a.m. -social service consultation for transfer to [facility] Critical care time spent with patient discussing and formulating plan of care: 40 minutes. This does not include time spent performing procedures. This medical document was created using an electronic medical record system with [employer] system. Although this document has been carefully reviewed, there may still be some phonetic and typographical errors. These areas are purely typographical due to imperfections of the software programs, and do not reflect any compromise in the patient's medical care. Plan discussed with: Patient, Other (RN) My Orders Orders - FLORY OSMAN NP Procedure Category Date Status Time Abg W/ Co-Ox RT 08/03/25 Logged 04:00 Cpap Trial For Am ORDERS 08/03/25 Transmitted 07:58 Basic Metabolic Panel LAB 08/04/25 Verified 04:00 Chest Portable XY 08/04/25 Verified 04:00 Magnesium LAB 08/04/25 Verified 04:00 Complete Blood Count LAB 08/04/25 Verified 04:00 Date of Service: Aug 03, 2025 Billing Provider: FLORY OSMAN NP Common Visit Codes: [id number] CARE 30-74 MIN FLORY OSMAN NP Aug 03, 2025 09:00
[2025-08-03 09:12] LABS: Base Excess 2.1 mmol/L (-2.0-3.0)
[2025-08-03 09:35] LABS: Base Excess 1.6 mmol/L (-2.0-3.0)
--- NOTE | 2025-08-03 10:44 | DVHPN2 ---
Progress Note - Dictate Date Seen: Aug 03, 2025 Has the PT tested + for MRSA If YES, has PT been informed?: No Medical Necessity Reason Pt with a Central, PICC or Fol: No Subjective Mr. Renee is a 80 years old right-handed gentleman with a history of hypertension, diabetes, atrial fibrillation, dementia, obesity, he came to the [facility] on 07/22/2025 with a chief complaint of altered mental status. I have seen and examined the patient in ICU last evening and this morning,, I have talked to his nurses and other medical staff, he is alert, he understands, follows verbal,, he moves arms and legs Last evening, he is trying to move out of bed According to ER record, memantine and Eliquis were in his home medication list Urinalysis, 07/22/2025: WBC: 11, urine leukocyte esterase: Negative ABG, 07/26/2025: Combined metabolic and respiratory acidosis Blood culture, 07/22/2025: No growth Blood culture, 07/24/2025: WBC/HB/PLT/MCV, 07/26/2025: 11.9/75/147/97.7 PT/INR/ABG, 07/25/2025: 12.2/1.17/34.7, 07/26/2025: 12.5/1.2/38.4 Na, 07/28/25: 144, 07/29/2025: 147, 07/30/2025: 150, 07/31/2025: 151 BUN/CR, 07/25/2025: 17/1.44 GFR, 07/25/2025: 49, 07/31/2025: 32/0.94 HGB A1c, 07/24/2025: 7.8 TBI/AST/ALT/AP, 07/25/2025: 0.8/45/42/68 TG/HDL/LDL/HDL, 07/24/2025: 100/103/42/47 Vitamin B12, 07/24/25: 1658 TSH, 07/24/2025: 1.34 Chest x-ray, 07/24/2025: Heart is prominent size. There is moderate pulmonary vascular congestion. Dual lead left cardiac device. Enteric tube tip is not well visualized. Endotracheal tube is 4 cm from the de Chest x-ray, 07/26/2025: Lines and tubes in satisfactory position. Increased interstitial prominence. This may represent pulmonary vascular congestion and/or viral pneumonia. Chest x-ray, 07/31/2025: 1. Lines and tubes unchanged. 2. Stable diffuse increased prominence of the pulmonary vasculature CT head, 07/22/2025: No acute intracranial abnormality CT head, 08/01/2025: No evidence of acute intracranial abnormality vital signs Vital Sign Date Time Temp Pulse Resp B/P (MAP) Pulse Ox O2 Delivery O2 Flow Rate FiO2 08/03/25 09:35 87/51 08/03/25 09:35 70 08/03/25 06:30 20 97 08/03/25 06:00 30 08/03/25 05:30 Mechanical Ventilator+ 08/03/25 04:00 97.7 97.7 Total Intake and Output 08/02/25 08/02/25 08/03/25 15:00 23:00 07:00 Intake Total 200 ml 314.34 ml 85.91 ml Output Total 1000 ml 850 ml Balance 200 ml -685.66 ml -764.09 ml medications Current Medications Medications Dose Ordered Sig/Lizabeth Route Start Time Stop Time Status Last Admin Dose Admin Ondansetron HCl 4 mg Q4HP PRN IV 07/22/25 15:00 Nitroglycerin 0.4 mg Q5MINP PRN SL 07/22/25 15:00 Diagnostic Test (Pha) 1 strip ACHS 07/22/25 17:00 08/03/25 06:33 1 STRIP Insulin Human Regular ACHS SC 07/22/25 17:00 08/02/25 21:58 2 UNITS Dextrose 50 ml UD PRN IV 07/22/25 16:30 Acetaminophen 500 mg Q6HP PRN PO 07/23/25 17:45 07/25/25 01:52 500 MG Docusate Sodium 100 mg BID PO 07/23/25 22:00 08/01/25 22:11 100 MG Memantine 5 mg HS PO 07/23/25 22:00 08/02/25 22:09 5 MG Fentanyl Citrate 250 ml @ 2.5 mls/hr Q24H IV 07/24/25 02:45 07/28/25 05:52 25 MLS/HR Midazolam HCl 100 ml @ 1 mls/hr Q24H IV 07/24/25 02:45 Cancel Fentanyl Citrate 250 ml @ 2.5 mls/hr Q24H IV 07/24/25 02:45 Cancel Pantoprazole Sodium 40 mg DAILY IV 07/25/25 10:00 08/03/25 09:34 40 MG Norepinephrine Bitartrate 250 ml @ 3.75 mls/hr Q24H IV 07/25/25 10:45 07/31/25 00:47 3.75 MLS/HR Amiodarone HCl 200 mg Q12HR GT 07/25/25 22:00 08/03/25 09:34 200 MG Azithromycin 250 ml @ 125 mls/hr DAILY IV 07/28/25 10:00 Cancel Purified Water 150 ml Q4HR NG 07/30/25 14:00 08/03/25 09:35 150 ML Enteral Nutritional Formula 1,000 ml 60ML/HR GT 07/30/25 16:45 08/02/25 06:30 1,000 ML Hydralazine HCl 10 mg Q6HP PRN IV 07/30/25 16:45 08/02/25 06:40 10 MG Apixaban 2.5 mg BID GT 07/31/25 22:00 08/03/25 09:34 2.5 MG Aspirin 81 mg DAILY GT 08/01/25 10:00 08/03/25 09:34 81 MG Atorvastatin Calcium 40 mg HS GT 07/31/25 22:00 08/02/25 22:02 40 MG Empaglifozin 25 mg DAILY GT 08/01/25 10:00 08/02/25 12:18 25 MG Levofloxacin/ Dextrose 150 ml @ 100 mls/hr DAILY IV 08/02/25 10:00 08/03/25 09:35 100 MLS/HR Metoprolol Tartrate 25 mg BID NG 08/02/25 10:00 08/02/25 12:24 25 MG Hydrochlorothiazide 25 mg DAILY NG 08/02/25 10:00 08/02/25 12:22 25 MG objective The patient is well-nourished and well-developed with no distress. The patient is intubated MENTAL STATUS: Subjective CRANIAL NERVES: Pupils are equal, round and reactive. There are conjugated eye movement. No signs of facial weakness. There are gagging or coughing reflexes oral care SENSATION: Responses to pain stimuli. MOTOR: Normal tone in the upper and lower extremity. Normal muscle bulk. No fasciculations. Moves the arms and the legs REFLEXES: Deep tendon reflexes are symmetrical. No pathological reflexes. CEREBELLAR/COORDINATION: Deferred GAIT/STATION: deferred. laboratory and microbiology Laboratory Tests 08/03/25 02:31 Test 08/03/25 02:31 Range/Units Serum Glucose 125 H 74-106 mg/dL Problem List Coma, fever Metabolic encephalopathy Toxic encephalopathy Hypoxic encephalopathy Possible community-acquired pneumonia vs a typical viral pneumonia Possible drug fever Rule out intracranial infection Dementia, likely Alzheimer disease, he may have a least moderate degree of dementia AFib Coagulopathy secondary to anticoagulation treatment Acute respiratory failure Fever Possible community-acquired pneumonia vs a typical viral pneumonia Possible drug fever Assessment/Plan Monitoring Supportive treatment ICU care Respiratory support/vent management Stabilize vitals Oxygen IV antibiotics Aspirin 81 mg daily Eliquis 2.5 mg b.i.d. Infectious disease consultation Try to extubate More recommendation per clinical course This medical document was created using an electronic medical record system with [employer] dictation system. Although this document has been carefully reviewed, there may still be some phonetic and typographical errors. These areas are purely typographical due to imperfections of the software programs, and do not reflect any compromise in the patient's medical care. Prognosis poor Dietary Evaluation Review Comments: Nutrition Recommendation: 1) EN Glucerna 1.2Cal @ 55ml/hr x 24hr (goal) along with Pro-stat 1 pk TID. Water flush 50ml Q6H if allowed, adjust PRN. TF at goal volume along with Pro-stat provide 1884 kcal (100%), 124 gm protein (91%), and 1263 ml free water(including flush). 2) TPN if NPO >7 days 3) Monitor NPO status, lab values, weight trend, and I/O Expected Outcomes/Goals: Intake to meet >75% estimated needs Lab values to improve FU 2-3 days Plan discussed with: Other CHRISTOPHER BLACK MD Aug 03, 2025 10:44
[2025-08-03] MEDS: BISACODYL 10 MG RECT SUPP PR ONE (12:29)
--- NOTE | 2025-08-03 19:10 | DVHPN2 ---
Progress Note - Dictate Date Seen: Aug 03, 2025 Has the PT tested + for MRSA If YES, has PT been informed?: No Medical Necessity Reason Pt with a Central, PICC or Fol: No Subjective Patient was seen and evaluated in follow up in the ICU. Patient was successfully extubated this morning. Patient now on 2 LPM NC. Patient has a sitter at bedside. NA 153, K 3.4, CL 111, BUN 28. vital signs Vital Sign Date Time Temp Pulse Resp B/P (MAP) Pulse Ox O2 Delivery O2 Flow Rate FiO2 08/03/25 11:30 98.4 70 15 105/61 (76) 99 98.4 08/03/25 10:00 Mechanical Ventilator+ 30 30 Total Intake and Output 08/02/25 08/02/25 08/03/25 15:00 23:00 07:00 Intake Total 200 ml 314.34 ml 85.91 ml Output Total 1000 ml 850 ml Balance 200 ml -685.66 ml -764.09 ml medications Current Medications Medications Dose Ordered Sig/Lizabeth Route Start Time Stop Time Status Last Admin Dose Admin Ondansetron HCl 4 mg Q4HP PRN IV 07/22/25 15:00 Nitroglycerin 0.4 mg Q5MINP PRN SL 07/22/25 15:00 Diagnostic Test (Pha) 1 strip ACHS 07/22/25 17:00 08/03/25 12:23 1 STRIP Insulin Human Regular ACHS SC 07/22/25 17:00 08/02/25 21:58 2 UNITS Dextrose 50 ml UD PRN IV 07/22/25 16:30 Acetaminophen 500 mg Q6HP PRN PO 07/23/25 17:45 07/25/25 01:52 500 MG Docusate Sodium 100 mg BID PO 07/23/25 22:00 08/01/25 22:11 100 MG Memantine 5 mg HS PO 07/23/25 22:00 08/02/25 22:09 5 MG Fentanyl Citrate 250 ml @ 2.5 mls/hr Q24H IV 07/24/25 02:45 07/28/25 05:52 25 MLS/HR Midazolam HCl 100 ml @ 1 mls/hr Q24H IV 07/24/25 02:45 Cancel Fentanyl Citrate 250 ml @ 2.5 mls/hr Q24H IV 07/24/25 02:45 Cancel Pantoprazole Sodium 40 mg DAILY IV 07/25/25 10:00 08/03/25 09:34 40 MG Norepinephrine Bitartrate 250 ml @ 3.75 mls/hr Q24H IV 07/25/25 10:45 07/31/25 00:47 3.75 MLS/HR Amiodarone HCl 200 mg Q12HR GT 07/25/25 22:00 08/03/25 09:34 200 MG Azithromycin 250 ml @ 125 mls/hr DAILY IV 07/28/25 10:00 Cancel Purified Water 150 ml Q4HR NG 07/30/25 14:00 08/03/25 09:35 150 ML Enteral Nutritional Formula 1,000 ml 60ML/HR GT 07/30/25 16:45 08/02/25 06:30 1,000 ML Hydralazine HCl 10 mg Q6HP PRN IV 07/30/25 16:45 08/02/25 06:40 10 MG Apixaban 2.5 mg BID GT 07/31/25 22:00 08/03/25 09:34 2.5 MG Aspirin 81 mg DAILY GT 08/01/25 10:00 08/03/25 09:34 81 MG Atorvastatin Calcium 40 mg HS GT 07/31/25 22:00 08/02/25 22:02 40 MG Empaglifozin 25 mg DAILY GT 08/01/25 10:00 08/02/25 12:18 25 MG Levofloxacin/ Dextrose 150 ml @ 100 mls/hr DAILY IV 08/02/25 10:00 08/03/25 09:35 100 MLS/HR Metoprolol Tartrate 25 mg BID NG 08/02/25 10:00 08/02/25 12:24 25 MG Hydrochlorothiazide 25 mg DAILY NG 08/02/25 10:00 08/02/25 12:22 25 MG objective GENERAL: Alert and oriented x 3. No acute distress. EYES: PERRL, EOMI. Anicteric. HENT: Moist mucous membranes. LUNGS: Crackles to bilateral breath sounds. CARDIOVASCULAR: Irregular rate and rhythm. ABDOMEN: Soft, non-tender and non-distended. EXTREMITIES: No edema. SKIN: Warm, dry. laboratory and microbiology Laboratory Tests 08/03/25 02:31 Test 08/03/25 02:31 Range/Units Serum Glucose 125 H 74-106 mg/dL Problem List Non ST-elevation myocardial infarction, questionable type 1. Paroxysmal atrial fibrillation/atrial flutter, now NSR (on Eliquis therapy at home). [place] decompensated HFrEF, NYHA Class III. Presence of dual-chamber pacemaker ([employer]tr[employer]). Acute hypoxic respiratory failure. Diabetes mellitus, newly diagnosed. Hypertension. Dyslipidemia. Former smoker/alcoholic. Obesity. Assessment/Plan Continued all current supportive medical care. Amiodarone. Eliquis. Aspirin, Lipitor, Metoprolol. IV antibiotics as ordered. IV Hydralazine for SBP .150. GI prophylactics. Vasopressors for hemodynamic support. Additional plan as per the hospital course. Critical care time of 45 minutes provided to include time spent evaluation of patient at bedside, when appropriate patient/family education for diagnosis, treatment plan, review of pertinent medical information and discussion of care with specialty providers and PCP. Dietary Evaluation Review Comments: Nutrition Recommendation: 1) EN Glucerna 1.2Cal @ 55ml/hr x 24hr (goal) along with Pro-stat 1 pk TID. Water flush 50ml Q6H if allowed, adjust PRN. TF at goal volume along with Pro-stat provide 1884 kcal (100%), 124 gm protein (91%), and 1263 ml free water(including flush). 2) TPN if NPO >7 days 3) Monitor NPO status, lab values, weight trend, and I/O Expected Outcomes/Goals: Intake to meet >75% estimated needs Lab values to improve FU 2-3 days Plan discussed with: Other ANUPAMA JACOBO MD Aug 03, 2025 13:13
--- NOTE | 2025-08-03 22:01 | DVH ---
CLINICAL HISTORY: ng placement confirmation TECHNIQUE: AP view of the chest was obtained. WID: COMPARISON: XY CHEST PORTABLE on DOS: 08/03/25, XY CHEST XRAY 1 VIEW on DOS: 08/02/25, XY CHEST PORTABLE on DOS: 08/01/25, XY CHEST XRAY 1 VIEW on DOS: 07/31/25, XY CHEST XRAY 1 VIEW on DOS: 07/30/25 FINDINGS: Lungs: Trace septal thickening. Cardiomediastinal silhouette: normal in size. Partially imaged pacer leads. Bones: No acute osseous abnormality. Imaged Upper Abdomen: Suction type enteric tube terminates in the stomach.. IMPRESSION: Trace interstitial pulmonary edema Nasogastric tube terminates in the stomach
--- NOTE | 2025-08-03 22:55 | DVHPN2 ---
Subjective DOS: 08/03/2025 Patient seen and examined at bedside. S/p extubation, on supplemental oxygen Overnight events reviewed. Reviewed: Care Plan, H&P, Labs, Medications, Previous Orders, Radiology, Other (Consultations) Changes from previous H/P or p: Changes General: Per HPI Objective Vitals Vital Signs Date Time Temp Pulse Resp B/P (MAP) Pulse Ox O2 Delivery O2 Flow Rate FiO2 08/03/25 22:30 99.3 86 22 98/65 (76) 98 99.3 08/03/25 22:00 Nasal Cannula* 2 28 Intake/Output Intake and Output 08/03/25 07:00 Intake Total 600.25 ml Output Total 1850 ml Balance -1249.75 ml Intake Oral 100 ml IV Total 300.25 ml Tube Feeding 200 ml Output Urine Total 1850 ml Exam Gen.: Patient lying in bed in no apparent distress. On supplemental oxygen. Head: Normocephalic, atraumatic. Eyes: EOMI/PERRLA. Ears: Normal hearing. Normal anatomy. Neck/trachea: Trachea midline, supple. Nose: Normal external anatomy. Mouth: Moist mucous membranes. Chest: Decreased air entry bilaterally. No wheezing or rhonchi. Cardiovascular: Positive S1, positive S2. Regular rate and rhythm. Abdomen: Positive bowel sounds in all 4 quadrants. Soft, non-tender, non- distended. : Deferred. Rectal: Deferred. Skin: Warm, dry. Intact. Extremities: 2+ radial pulses bilaterally. No lower extremity edema. Neuro: Awake, alert. No gross motor or sensory deficits. Cranial nerves II through XII intact. Gait not assessed. General Appearance: Alert, Cooperative HEENT: Atraumatic, PERRLA, Other (Right IJ central line with no signs of bleeding/infection) Lungs: Clear to auscultation Chest/Breasts: Other (Pacemaker in place) Cardiovascular: Normal S1, Normal S2, Other (V paced) Abdomen: Normal bowel sounds, Soft Genitourinary: Other ([place]'s catheter in place) Musculoskeletal: Weak motor strength RUE, Weak motor strength LUE, Weak motor strength RLE, Weak motor strength LLE Neuro: Cranial nerves 3-12 NL Skin: Dry, Intact Medications Current Medications Medications Dose Ordered Sig/Lizabeth Route Start Time Stop Time Status Last Admin Dose Admin Ondansetron HCl 4 mg Q4HP PRN IV 07/22/25 15:00 Nitroglycerin 0.4 mg Q5MINP PRN SL 07/22/25 15:00 Diagnostic Test (Pha) 1 strip ACHS 07/22/25 17:00 08/03/25 21:50 1 STRIP Insulin Human Regular ACHS SC 07/22/25 17:00 08/02/25 21:58 2 UNITS Dextrose 50 ml UD PRN IV 07/22/25 16:30 Acetaminophen 500 mg Q6HP PRN PO 07/23/25 17:45 07/25/25 01:52 500 MG Docusate Sodium 100 mg BID PO 07/23/25 22:00 08/01/25 22:11 100 MG Memantine 5 mg HS PO 07/23/25 22:00 08/03/25 21:45 5 MG Fentanyl Citrate 250 ml @ 2.5 mls/hr Q24H IV 07/24/25 02:45 07/28/25 05:52 25 MLS/HR Midazolam HCl 100 ml @ 1 mls/hr Q24H IV 07/24/25 02:45 Cancel Fentanyl Citrate 250 ml @ 2.5 mls/hr Q24H IV 07/24/25 02:45 Cancel Pantoprazole Sodium 40 mg DAILY IV 07/25/25 10:00 08/03/25 09:34 40 MG Norepinephrine Bitartrate 250 ml @ 3.75 mls/hr Q24H IV 07/25/25 10:45 07/31/25 00:47 3.75 MLS/HR Amiodarone HCl 200 mg Q12HR GT 07/25/25 22:00 08/03/25 21:45 200 MG Azithromycin 250 ml @ 125 mls/hr DAILY IV 07/28/25 10:00 Cancel Purified Water 150 ml Q4HR NG 07/30/25 14:00 08/03/25 21:51 150 ML Enteral Nutritional Formula 1,000 ml 60ML/HR GT 07/30/25 16:45 08/02/25 06:30 1,000 ML Hydralazine HCl 10 mg Q6HP PRN IV 07/30/25 16:45 08/02/25 06:40 10 MG Apixaban 2.5 mg BID GT 07/31/25 22:00 08/03/25 21:45 2.5 MG Aspirin 81 mg DAILY GT 08/01/25 10:00 08/03/25 09:34 81 MG Atorvastatin Calcium 40 mg HS GT 07/31/25 22:00 08/03/25 21:56 40 MG Empaglifozin 25 mg DAILY GT 08/01/25 10:00 08/02/25 12:18 25 MG Levofloxacin/ Dextrose 150 ml @ 100 mls/hr DAILY IV 08/02/25 10:00 08/03/25 09:35 100 MLS/HR Metoprolol Tartrate 25 mg BID NG 08/02/25 10:00 08/02/25 12:24 25 MG Hydrochlorothiazide 25 mg DAILY NG 08/02/25 10:00 08/02/25 12:22 25 MG Laboratory Results Laboratory Tests 08/03/25 02:31 Chemistry Test 08/03/25 02:31 Calcium Level 9.7 mg/dL (8.7-10.4) Magnesium Level 2.5 mg/dL (1.6-2.6) Cardiac Markers Test 08/03/25 02:31 B-Type Natriuretic Peptide 59.45 pg/mL (0-100) Urinalysis Test 07/22/25 10:51 Urine Color Light-yellow (Yellow) Urine Clarity Clear (Clear) Urine pH 5.5 (5.0-9.0) Urine Specific [place] 1.025 (1.001-1.035) Urine Protein Negative (Negative) Urine Ketones Negative (Negative) Urine Blood 2+ /uL (Negative) H Urine Nitrite Negative (Negative) Urine Bilirubin Negative (Negative) Urine Urobilinogen Normal mg/dL (Negative) Urine Leukocyte Esterase Negative /uL (Negative) Urine RBC 57 /hpf (0 - 3) Urine Microscopic WBC 11 /HPF (0-3) H Urine Squamous Epithelial Cells None seen /hpf (<5) Urine Bacteria None seen /hpf (None Seen) Urine Glucose 4+ mg/dL (Normal) H Blood Gas Results Test 08/03/25 06:11 08/03/25 09:26 Arterial Blood pH 7.477 (7.350-7.450) 7.446 (7.350-7.450) FiO2 % 30.0 30.0 Microbiology Microbiology Date/Time Source Procedure Growth Status 07/27/25 11:21 Blood Blood Culture - Final NO GROWTH AFTER 5 DAYS OF INCUBATION. Complete 07/24/25 03:35 Urine - [place] Urine Culture - Final Complete 07/24/25 03:26 Trachea Gram Stain - Final Complete 07/24/25 03:26 Trachea Respiratory Culture - Final Complete Assessment/Plan Assessment/Plan Impression: Acute hypoxic respiratory failure Mechanical ventilation, s/p extubation S/p cardiac arrest Pulmonary congestion Congestive heart failure Obesity Plan: Patient tolerated CPAP and was extubated uneventfully to aerosol Coolmist Continue supplemental oxygen Titrate to keep O2 sats above 92%. On 2 LPM NC Taper O2 as tolerated. Head of bed elevation Aspiration precautions Off Levophed, hemodynamically stable. Swallow evaluation. Continue antibiotics Incentive spirometry Monitor renal function. Monitor electrolytes. Supplement as necessary. Monitor ins and outs. Recommend diet and lifestyle modifications for weight reduction Obesity complicates all care DVT prophylaxis. Prognosis: Poor given patient's multiple co-morbidities. Condition: Critical Rest of plan per hospitalist and other consultants. A total of 35 minutes of critical care time was spent reviewing the patient record, examining the patient, making a diagnostic and therapeutic plan, discussing this plan with the medical personnel, following up on diagnostic studies and following the patient for clinical stability excluding any and all procedures. At least 50% of this time was spent in direct, [id number] contact. Thank you, HERMINIA Sweeney, for allowing me to participate in this patient's care. Further recommendations will depend on the patient's clinical course. Please do not hesitate to contact me if you have any questions or concerns. This medical document was created using an electronic medical record system with [employer] dictation system. Although these documentations are being carefully reviewed, there may still be some phonetic and typographical changes. The errors are purely typographical, due to imperfection on the software program, and do not reflect any compromise in the patient's medical care. Plan discussed with: Other (JUVENAL Lee) Visit Coding Pulmonary Billing Provider: RUBI ASIF MD Date of Service if different f: Aug 03, 2025 Common Visit Codes: [id number] INP/OBS CARE(HIGH), [id number] CARE 30-74 MIN RUBI ASIF MD Aug 03, 2025 22:55
[2025-08-04] VITALS (70 sets, daily range): BP systolic 90–136; BP diastolic 53–75; PULSE 70–92; RESP 10–38; TEMP 98.4–99.5; O2SAT 89–100
[2025-08-04 03:24] LABS: Hematocrit 49.1 % (41.0-53.0); Hemoglobin 16.2 g/dL (13.5-17.5); Mean Corpuscular Hemoglobin 32.3 pg (28.0-32.0); Mean Corpuscular Volume 97.9 fL (80.0-100.0); Nucleated Red Blood Cells % 0.2 %
[2025-08-04 03:36] LABS: Potassium 3.7 mmol/L (3.5-5.1)
[2025-08-04 03:37] LABS: Anion Gap 15 (5-15); Calcium 9.4 mg/dL (8.7-10.4); Carbon Dioxide 27 mmol/L (20-31)
[2025-08-04 03:42] LABS: BUN/Creatinine Ratio 33.0 (10.0-20.0); Magnesium 2.6 mg/dL (1.6-2.6)
[2025-08-04 03:55] LABS: Blood Urea Nitrogen 38 mg/dL (9-23); Chloride 112 mmol/L (98-107); Glucose 125 mg/dL (74-106); Sodium 154 mmol/L (136-145)
--- NOTE | 2025-08-04 05:51 | DVH ---
CHEST RADIOGRAPH Indication: pna Technique: Single frontal view of the chest was obtained Comparison: XY CHEST PORTABLE on DOS: 08/03/25 FINDINGS: Lines and Tubes: There is a right central venous catheter with its tip terminating in the superior vena cava. The enteric tube courses below the left hemidiaphragm and the tip extends outside the field of view. There is a dual- chamber pacemaker with right atrial and ventricular leads. Lungs: There is interstitial prominence. No focal consolidation. Pleura: No effusion. No pneumothorax. Cardiomediastinal contours: Stable Cardiovascular silhouette Bones: No acute osseous abnormality. IMPRESSION: 1. Similar position of the support lines and tubes. 2. Stable pulmonary edema.
--- NOTE | 2025-08-04 09:11 | DVHPN2 ---
Subjective Patient denies any symptoms at this time. Reviewed: Care Plan, H&P, Labs, Medications, Previous Orders, Radiology, Other (Consultations) Changes from previous H/P or p: Changes General: Per HPI Objective Vitals Vital Signs Date Time Temp Pulse Resp B/P (MAP) Pulse Ox O2 Delivery O2 Flow Rate FiO2 08/04/25 08:45 99.3 84 99 210.7 08/04/25 08:00 16 Nasal Cannula* 2 28 Intake/Output Intake and Output 08/04/25 07:00 Intake Total 602.81 ml Output Total 1625 ml Balance -1022.19 ml Intake Oral 450 ml IV Total 152.81 ml Output Urine Total 1625 ml General Appearance: Alert, Cooperative HEENT: Atraumatic, PERRLA, Other (Right IJ central line with no signs of bleeding/infection) Lungs: Clear to auscultation Chest/Breasts: Other (Pacemaker in place) Cardiovascular: Normal S1, Normal S2, Other (V paced) Abdomen: Normal bowel sounds, Soft Genitourinary: Other (Oron[place]'s catheter in place) Musculoskeletal: Weak motor strength RUE, Weak motor strength LUE, Weak motor strength RLE, Weak motor strength LLE Neuro: Cranial nerves 3-12 NL Skin: Dry, Intact Medications Current Medications Medications Dose Ordered Sig/Lizabeth Route Start Time Stop Time Status Last Admin Dose Admin Ondansetron HCl 4 mg Q4HP PRN IV 07/22/25 15:00 Nitroglycerin 0.4 mg Q5MINP PRN SL 07/22/25 15:00 Diagnostic Test (Pha) 1 strip ACHS 07/22/25 17:00 08/04/25 06:11 1 STRIP Insulin Human Regular ACHS SC 07/22/25 17:00 08/02/25 21:58 2 UNITS Dextrose 50 ml UD PRN IV 07/22/25 16:30 Acetaminophen 500 mg Q6HP PRN PO 07/23/25 17:45 07/25/25 01:52 500 MG Docusate Sodium 100 mg BID PO 07/23/25 22:00 08/01/25 22:11 100 MG Memantine 5 mg HS PO 07/23/25 22:00 08/03/25 21:45 5 MG Midazolam HCl 100 ml @ 1 mls/hr Q24H IV 07/24/25 02:45 Cancel Fentanyl Citrate 250 ml @ 2.5 mls/hr Q24H IV 07/24/25 02:45 Cancel Pantoprazole Sodium 40 mg DAILY IV 07/25/25 10:00 08/03/25 09:34 40 MG Norepinephrine Bitartrate 250 ml @ 3.75 mls/hr Q24H IV 07/25/25 10:45 07/31/25 00:47 3.75 MLS/HR Amiodarone HCl 200 mg Q12HR GT 07/25/25 22:00 08/03/25 21:45 200 MG Azithromycin 250 ml @ 125 mls/hr DAILY IV 07/28/25 10:00 Cancel Purified Water 150 ml Q4HR NG 07/30/25 14:00 08/04/25 06:10 150 ML Enteral Nutritional Formula 1,000 ml 60ML/HR GT 07/30/25 16:45 08/02/25 06:30 1,000 ML Hydralazine HCl 10 mg Q6HP PRN IV 07/30/25 16:45 08/02/25 06:40 10 MG Apixaban 2.5 mg BID GT 07/31/25 22:00 08/03/25 21:45 2.5 MG Aspirin 81 mg DAILY GT 08/01/25 10:00 08/03/25 09:34 81 MG Atorvastatin Calcium 40 mg HS GT 07/31/25 22:00 08/03/25 21:56 40 MG Empaglifozin 25 mg DAILY GT 08/01/25 10:00 08/02/25 12:18 25 MG Levofloxacin/ Dextrose 150 ml @ 100 mls/hr DAILY IV 08/02/25 10:00 08/03/25 09:35 100 MLS/HR Metoprolol Tartrate 25 mg BID NG 08/02/25 10:00 08/02/25 12:24 25 MG Hydrochlorothiazide 25 mg DAILY NG 08/02/25 10:00 08/02/25 12:22 25 MG Laboratory Results Laboratory Tests 08/04/25 02:39 Chemistry Test 08/04/25 02:39 Calcium Level 9.4 mg/dL (8.7-10.4) Magnesium Level 2.6 mg/dL (1.6-2.6) Urinalysis Test 07/22/25 10:51 Urine Color Light-yellow (Yellow) Urine Clarity Clear (Clear) Urine pH 5.5 (5.0-9.0) Urine Specific [place] 1.025 (1.001-1.035) Urine Protein Negative (Negative) Urine Ketones Negative (Negative) Urine Blood 2+ /uL (Negative) H Urine Nitrite Negative (Negative) Urine Bilirubin Negative (Negative) Urine Urobilinogen Normal mg/dL (Negative) Urine Leukocyte Esterase Negative /uL (Negative) Urine RBC 57 /hpf (0 - 3) Urine Microscopic WBC 11 /HPF (0-3) H Urine Squamous Epithelial Cells None seen /hpf (<5) Urine Bacteria None seen /hpf (None Seen) Urine Glucose 4+ mg/dL (Normal) H Blood Gas Results Test 08/03/25 09:26 Arterial Blood pH 7.446 (7.350-7.450) FiO2 % 30.0 Microbiology Microbiology Date/Time Source Procedure Growth Status 07/27/25 11:21 Blood Blood Culture - Final NO GROWTH AFTER 5 DAYS OF INCUBATION. Complete 07/24/25 03:35 Urine - [place] Urine Culture - Final Complete 07/24/25 03:26 Trachea Gram Stain - Final Complete 07/24/25 03:26 Trachea Respiratory Culture - Final Complete Labs and/or images reviewed: Labs reviewed by me, Image(s) reviewed by me Assessment/Plan Assessment/Plan Impression: -acute metabolic encephalopathy -acute hypoxic respiratory failure -questionable acute seizure activity with postictal state -acute on chronic diastolic heart failure -atrial flutter with controlled rate -recent placement of dual-chamber pacemaker -? History of ETOH -acute kidney injury, vasomotor nephropathy -obesity -primary hypertension -NSTEMI, probably type 2 -rhabdomyolysis Plan: Events: Patient extubated on 2 L nasal cannula. Continues to have difficulty swallowing. Neurologically, patient is appropriate. Restart tube feedings as previously ordered. Worsening hypernatremia. Start D5 water at 75 mL x1 L -increase metoprolol tartrate 25 mg p.o. b.i.d. -ID consultation: Recommendations reviewed. -neurology recommendations appreciated. Cardiology consultation: Continue current anticoagulation -continue tube feeding and free water via NG tube -physical therapy -social service consultation for transfer to [facility] Critical care time spent with patient discussing and formulating plan of care: 40 minutes. This does not include time spent performing procedures. This medical document was created using an electronic medical record system with Dragon computerized dictation system. Although this document has been carefully reviewed, there may still be some phonetic and typographical errors. These areas are purely typographical due to imperfections of the software programs, and do not reflect any compromise in the patient's medical care. Plan discussed with: Patient, Other (RN) My Orders Orders - FLORY OSMAN NP Procedure Category Date Status Time Abg W/ Co-Ox RT 08/03/25 Logged 09:15 Extubate ALEX 08/03/25 In Process 09:48 Sitter At Bedside ORDERS 08/03/25 Transmitted 12:00 * Swallow Request ST 08/03/25 Transmitted 16:02 Dextrose 10% PHA 08/04/25 In Process 07:45 Pt Request For Service PT 08/04/25 Logged 07:36 Osmolality, Serum LAB 08/04/25 In Process 07:37 * Swallow Request ST 08/04/25 Verified 09:04 Communication Order ORDERS 08/04/25 Verified 09:04 Basic Metabolic Panel LAB 08/05/25 Verified 04:00 Date of Service: Aug 04, 2025 Billing Provider: FLORY OSMAN NP Common Visit Codes: [id number] INP/OBS CARE(HIGH) FLORY OSMAN NP Aug 04, 2025 09:11
[2025-08-04] MEDS: DEXTROSE 10% 1,000 ML IV ONE (10:00)
--- NOTE | 2025-08-04 13:40 | DVHPN2 ---
Progress Note - Dictate Date Seen: Aug 04, 2025 Has the PT tested + for MRSA If YES, has PT been informed?: No Medical Necessity Reason Pt with a Central, PICC or Fol: No Subjective Mr. Renee is a 80 years old right-handed gentleman with a history of hypertension, diabetes, atrial fibrillation, dementia, obesity, he came to the [facility] on 07/22/2025 with a chief complaint of altered mental status. I have seen and examined the patient in ICU, I have talked to his nurses, sitter and other medical staff, he is alert oriented to person, place, he knows year, follows verbal commands, he is confused, he tried to pull the lines He has anisocoria He has been extubated since 08/03/2025 According to ER record, memantine and Eliquis were in his home medication list Urinalysis, 07/22/2025: WBC: 11, urine leukocyte esterase: Negative ABG, 07/26/2025: Combined metabolic and respiratory acidosis Blood culture, 07/22/2025: No growth Blood culture, 07/24/2025: WBC/HB/PLT/MCV, 07/26/2025: 11.9/75/147/97.7 PT/INR/ABG, 07/25/2025: 12.2/1.17/34.7, 07/26/2025: 12.5/1.2/38.4 Na, 07/28/25: 144, 07/29/2025: 147, 07/30/2025: 150, 07/31/2025: 151 BUN/CR, 07/25/2025: 17/1.44 GFR, 07/25/2025: 49, 07/31/2025: 32/0.94 HGB A1c, 07/24/2025: 7.8 TBI/AST/ALT/AP, 07/25/2025: 0.8/45/42/68 TG/HDL/LDL/HDL, 07/24/2025: 100/103/42/47 Vitamin B12, 07/24/25: 1658 TSH, 07/24/2025: 1.34 Chest x-ray, 07/24/2025: Heart is prominent size. There is moderate pulmonary vascular congestion. Dual lead left cardiac device. Enteric tube tip is not well visualized. Endotracheal tube is 4 cm from the de Chest x-ray, 07/26/2025: Lines and tubes in satisfactory position. Increased interstitial prominence. This may represent pulmonary vascular congestion and/or viral pneumonia. Chest x-ray, 07/31/2025: 1. Lines and tubes unchanged. 2. Stable diffuse increased prominence of the pulmonary vasculature CT head, 07/22/2025: No acute intracranial abnormality CT head, 08/01/2025: No evidence of acute intracranial abnormality vital signs Vital Sign Date Time Temp Pulse Resp B/P (MAP) Pulse Ox O2 Delivery O2 Flow Rate FiO2 08/04/25 13:15 70 15 89 08/04/25 12:30 99.1 210.4 08/04/25 12:00 Nasal Cannula* 2 28 Total Intake and Output 08/03/25 08/03/25 08/04/25 15:00 23:00 07:00 Intake Total 152.81 ml 450 ml Output Total 825 ml 800 ml Balance 152.81 ml -825 ml -350 ml medications Current Medications Medications Dose Ordered Sig/Lizabeth Route Start Time Stop Time Status Last Admin Dose Admin Ondansetron HCl 4 mg Q4HP PRN IV 07/22/25 15:00 Nitroglycerin 0.4 mg Q5MINP PRN SL 07/22/25 15:00 Diagnostic Test (Pha) 1 strip ACHS 07/22/25 17:00 08/04/25 11:37 1 STRIP Insulin Human Regular ACHS SC 07/22/25 17:00 08/04/25 11:38 3 UNITS Dextrose 50 ml UD PRN IV 07/22/25 16:30 Acetaminophen 500 mg Q6HP PRN PO 07/23/25 17:45 07/25/25 01:52 500 MG Docusate Sodium 100 mg BID PO 07/23/25 22:00 08/01/25 22:11 100 MG Memantine 5 mg HS PO 07/23/25 22:00 08/03/25 21:45 5 MG Midazolam HCl 100 ml @ 1 mls/hr Q24H IV 07/24/25 02:45 Cancel Fentanyl Citrate 250 ml @ 2.5 mls/hr Q24H IV 07/24/25 02:45 Cancel Pantoprazole Sodium 40 mg DAILY IV 07/25/25 10:00 08/04/25 10:33 40 MG Norepinephrine Bitartrate 250 ml @ 3.75 mls/hr Q24H IV 07/25/25 10:45 07/31/25 00:47 3.75 MLS/HR Amiodarone HCl 200 mg Q12HR GT 07/25/25 22:00 08/04/25 10:17 200 MG Azithromycin 250 ml @ 125 mls/hr DAILY IV 07/28/25 10:00 Cancel Purified Water 150 ml Q4HR NG 07/30/25 14:00 08/04/25 13:33 150 ML Enteral Nutritional Formula 1,000 ml 60ML/HR GT 07/30/25 16:45 08/04/25 09:31 1,000 ML Hydralazine HCl 10 mg Q6HP PRN IV 07/30/25 16:45 08/02/25 06:40 10 MG Apixaban 2.5 mg BID GT 07/31/25 22:00 08/04/25 10:17 2.5 MG Aspirin 81 mg DAILY GT 08/01/25 10:00 08/04/25 10:16 81 MG Atorvastatin Calcium 40 mg HS GT 07/31/25 22:00 08/03/25 21:56 40 MG Empaglifozin 25 mg DAILY GT 08/01/25 10:00 08/04/25 10:20 25 MG Levofloxacin/ Dextrose 150 ml @ 100 mls/hr DAILY IV 08/02/25 10:00 08/04/25 10:19 100 MLS/HR Metoprolol Tartrate 25 mg BID NG 08/02/25 10:00 08/04/25 10:17 25 MG Hydrochlorothiazide 25 mg DAILY NG 08/02/25 10:00 08/04/25 10:19 25 MG objective The patient is well-nourished and well-developed with no distress. MENTAL STATUS: Subjective CRANIAL NERVES: Pupils are round and reactive, Rt: 3-4mm, Lt: 3mm. There are conjugated eye movement, no ptosis, no abnormal vascular dilatation or skin secretion. No signs of facial weakness SENSATION: Responses to light touch in the pinprick MOTOR: Normal tone in the upper and lower extremity. Normal muscle bulk. No fasciculations. Moves the arms and the legs REFLEXES: Deep tendon reflexes are symmetrical. No pathological reflexes. CEREBELLAR/COORDINATION: Deferred GAIT/STATION: deferred. laboratory and microbiology Laboratory Tests 08/04/25 02:39 Test 08/04/25 02:39 Range/Units Serum Glucose 125 H 74-106 mg/dL Problem List Coma, fever Metabolic encephalopathy Toxic encephalopathy Hypoxic encephalopathy Possible community-acquired pneumonia vs a typical viral pneumonia Possible drug fever Rule out intracranial infection Dementia, likely Alzheimer disease, he may have a least moderate degree of dementia AFib Coagulopathy secondary to anticoagulation treatment Acute respiratory failure Fever Possible community-acquired pneumonia vs a typical viral pneumonia Possible drug fever Assessment/Plan Monitoring Supportive treatment ICU care Respiratory support Stabilize vitals Oxygen IV antibiotics Aspirin 81 mg daily Eliquis 2.5 mg b.i.d. Infectious disease consultation Try to extubate More recommendation per clinical course This medical document was created using an electronic medical record system with [employer] dictation system. Although this document has been carefully reviewed, there may still be some phonetic and typographical errors. These areas are purely typographical due to imperfections of the software programs, and do not reflect any compromise in the patient's medical care. Prognosis poor Dietary Evaluation Review Comments: Nutrition Recommendation: 1) EN Glucerna 1.2Cal @ 55ml/hr x 24hr (goal) along with Pro-stat 1 pk TID. Water flush 50ml Q6H if allowed, adjust PRN. TF at goal volume along with Pro-stat provide 1884 kcal (100%), 124 gm protein (91%), and 1263 ml free water(including flush). 2) TPN if NPO >7 days 3) Monitor NPO status, lab values, weight trend, and I/O Expected Outcomes/Goals: Intake to meet >75% estimated needs Lab values to improve FU 2-3 days Plan discussed with: Other CHRISTOPHER BLACK MD Aug 04, 2025 13:40
[2025-08-04] MEDS: ACETYLCYSTEINE 10 %(100MG/ML) SOL 4ML IN SCH (22:34)
[2025-08-04] MEDS: ALBUTEROL SULF 2.5 MG/0.5ML(0.5%) NEB SOLN NEB SCH (22:34)
--- NOTE | 2025-08-04 22:50 | DVHPN2 ---
Consult Progress Note Date Seen: Aug 04, 2025 Subjective Patient reports: Feels better Objective vital signs Vital Sign Date Time Temp Pulse Resp B/P (MAP) Pulse Ox O2 Delivery O2 Flow Rate FiO2 08/04/25 22:40 71 20 98 08/04/25 22:34 Nasal Cannula* 2 28 08/04/25 21:55 107/67 08/04/25 17:30 98.8 98.8 Total Intake and Output 08/03/25 08/03/25 08/04/25 15:00 23:00 07:00 Intake Total 152.81 ml 450 ml Output Total 825 ml 800 ml Balance 152.81 ml -825 ml -350 ml medications Current Medications Medications Dose Ordered Sig/Lizabeth Route Start Time Stop Time Status Last Admin Dose Admin Ondansetron HCl 4 mg Q4HP PRN IV 07/22/25 15:00 Nitroglycerin 0.4 mg Q5MINP PRN SL 07/22/25 15:00 Diagnostic Test (Pha) 1 strip ACHS 07/22/25 17:00 08/04/25 22:11 1 STRIP Insulin Human Regular ACHS SC 07/22/25 17:00 08/04/25 22:09 3 UNITS Dextrose 50 ml UD PRN IV 07/22/25 16:30 Acetaminophen 500 mg Q6HP PRN PO 07/23/25 17:45 07/25/25 01:52 500 MG Docusate Sodium 100 mg BID PO 07/23/25 22:00 08/01/25 22:11 100 MG Memantine 5 mg HS PO 07/23/25 22:00 08/04/25 21:55 5 MG Midazolam HCl 100 ml @ 1 mls/hr Q24H IV 07/24/25 02:45 Cancel Fentanyl Citrate 250 ml @ 2.5 mls/hr Q24H IV 07/24/25 02:45 Cancel Pantoprazole Sodium 40 mg DAILY IV 07/25/25 10:00 08/04/25 10:33 40 MG Norepinephrine Bitartrate 250 ml @ 3.75 mls/hr Q24H IV 07/25/25 10:45 07/31/25 00:47 3.75 MLS/HR Amiodarone HCl 200 mg Q12HR GT 07/25/25 22:00 08/04/25 21:54 200 MG Azithromycin 250 ml @ 125 mls/hr DAILY IV 07/28/25 10:00 Cancel Purified Water 150 ml Q4HR NG 07/30/25 14:00 08/04/25 21:55 150 ML Enteral Nutritional Formula 1,000 ml 60ML/HR GT 07/30/25 16:45 08/04/25 09:31 1,000 ML Hydralazine HCl 10 mg Q6HP PRN IV 07/30/25 16:45 08/02/25 06:40 10 MG Apixaban 2.5 mg BID GT 07/31/25 22:00 08/04/25 21:54 2.5 MG Aspirin 81 mg DAILY GT 08/01/25 10:00 08/04/25 10:16 81 MG Atorvastatin Calcium 40 mg HS GT 07/31/25 22:00 08/04/25 21:55 40 MG Empaglifozin 25 mg DAILY GT 08/01/25 10:00 08/04/25 10:20 25 MG Metoprolol Tartrate 25 mg BID NG 08/02/25 10:00 08/04/25 21:55 25 MG Hydrochlorothiazide 25 mg DAILY NG 08/02/25 10:00 08/04/25 10:19 25 MG Albuterol 2.5 mg Q8HPRN NEB 08/04/25 22:00 Acetylcysteine 200 mg Q8HR IN 08/04/25 22:00 08/04/25 22:34 200 MG laboratory and microbiology Laboratory Tests 08/04/25 02:39 Test 08/04/25 02:39 Range/Units Serum Glucose 125 H 74-106 mg/dL Problem List/Assessment/Plan Problem List/Assessment/Plan ASSESSMENT AND PLAN: ID Problem List: - acute hypoxic respiratory failure - atypical pneumonia -Altered mental status with decreased level of consciousness -Intermittent fevers during hospitalization (onset ~07/24, peak 102F on 07/25) -Leukocytosis (harry to 11.9 on 07/26) -Atrial fibrillation/atrial flutter; s/p pacemaker placement (06/27, [place]) -Hypertension -Possible community-acquired pneumonia vs atypical/viral pneumonia (no clear focal consolidation on CXR) -Possible drug fever (ceftriaxone; consider other recent medications) -Elevated troponin (657 on 07/24) and bundle branch block on EKG -Cardiomegaly with pulmonary vascular congestion on chest imaging -Intubated 07/23; on fentanyl infusion; on vasopressor support (norepinephrine) -Aortic systolic ejection murmur -Left shoulder blister, scabbed -Obesity (BMI 35.6) -Former alcohol use disorder; former smoker Assessment This is a male with a history of atrial fibrillation/atrial flutter, hypertension, former heavy alcohol use (currently abstinent), former smoker, and pacemaker placement on 06/27 who presented with decreased level of consciousness after several days of pacemaker-detected arrhythmias. Admission vitals were stable without initial fever; he subsequently developed fevers beginning ~07/24 peaking at 102F on 07/25, then trending down. He was intubated on 07/23, now on minimal ventilator support; he remains on norepinephrine (14 mcg) with improving blood pressures over 2448 hours. Cultures (blood, urine) have been negative to date; tracheal/respiratory culture shows normal oropharyngeal chely. Chest imaging demonstrates cardiomegaly and moderate pulmonary vascular congestion without a clear focal pneumonia. EKG shows a bundle branch block and troponin harry to 657 on 07/24. Leukocytosis increased to 11.9 on 07/26. UA shows mild pyuria (11 WBC), negative LE/nitrites, no bacteria, and 4+ glucosuria; urine cultures negative. Head CT shows no acute intracranial process; renal ultrasound without hydronephrosis. Differential for fevers and leukocytosis includes atypical/viral pneumonia, drug fever (ceftriaxone; also consider recent furosemide, increased statin dose, amiodarone), venous thromboembolism with possible inflammatory fever, aspiration pneumonitis, and noninfectious ischemic hepatopathy in the context of critical illness and elevated troponin. 07/28: fever curve improving but still febrile, doppler US negative for DVT, HIV negative 07/29: off pressors, hypoxia improving on minimal vent 07/30: no new fevers 07/31: requiring antipyretic, cooling blanket 08/01: worsening hypernatremia, no true fevers but recurrent elevated temps 08/02: doxycycline stopped, switched to levofloxacin for elevated temps 08/04: extubated to 2LNC, no ongoing sign of infection Plan: -Antimicrobials: - stop levofloxacin, will monitor clinically off all antibiotics -Diagnostics: - check legionella ag and mycoplasma ab--> negative -Fever/Leukocytosis: -Monitor fever curve; note that resolution may take several days if drug fever- related. -Continue to monitor WBC trend and clinical status. -Respiratory: -Continue ventilatory weaning as tolerated; monitor for signs of aspiration or evolving pneumonia. -Repeat chest imaging as clinically indicated. -Cardiovascular: -Continue amiodarone per cardiology. -Trend troponins. -Maintain adequate perfusion; coordinate with cardiology regarding vasopressor/inotrope strategy (cardioselective agents as appropriate). -Renal/Volume: -Monitor urine output (reported ~1,300 cc/day); continue diuresis with furosemide as clinically indicated. -Supportive care: -Antipyretics as needed (acetaminophen given once on 07/24). -Continue ICU-level monitoring and supportive measures. -Infection prevention: -No evidence for catheter- or skin-source infection on current exam; continue routine line care and skin assessments. Authorized and Performed by: ruddy varela Total critical care time: Approximately 66 minutes Due to a high probability of clinically significant, life threatening deterioration, the patient required my highest level of preparedness to intervene emergently and I personally spent this critical care time directly and personally managing the patient. This critical care time included obtaining a history; examining the patient; pulse oximetry; ordering and review of studies; arranging urgent treatment with development of a management plan; evaluation of patient's response to treatment; frequent reassessment; and, discussions with other providers. This critical care time was performed to assess and manage the high probability of imminent, life-threatening deterioration that could result in multi-organ failure. It was exclusive of separately billable procedures and treating other patients and teaching time. Isolation Precautions: standard \*Assessment and plan was discussed with the care team as written above. \*Plan is subject to change pending incorporation of new incoming information/diagnostics. Updates may be added as addendum at the bottom (OR TOP) of this note. Thank you for the consult. Infectious Diseases will continue to follow. Please contact Infectious Disease for any questions or concerns. ++++++++++++++++++++++++++++++++++++++++++++++++++++++++++++++++++++++++ Physical Exam: General: NAD Neck: Supple. No masses. HEENT: PERRL. Normal lids and conjunctiva. Moist mucous membranes. Oropharynx without lesions, exudates or excessive erythema. Normal appearance of the external aspects of the nose and ears. Heart: Regular rhythm, normal rate. Aortic systolic ejection murmur present. No lower extremity edema noted. Lungs: Normal respiratory effort. Clear to auscultation bilaterally. No wheezes. No crackles. Abdomen: Soft. Non-tender. Non-distended. Normal bowel sounds. No masses or abdominal hernia. Msk: No digital cyanosis. Normal tone in all 4 limbs. Skin: Warm and dry, no rashes. Left shoulder blister with scab. Neuro: Lethargic but oriented to person, place, and time when arousable. No facial droop or slurred speech. Extra-ocular movements intact. Sensation intact to soft touch in all 4 limbs. Decreased strength in upper and lower extremities. Psych: Appropriate mood. Full affect when interactive. Oriented to person, place, time, and situation when arousable. Plan discussed with: Patient Dietary Evaluation Review Comments: Nutrition Recommendation: 1) EN Glucerna 1.2Cal @ 55ml/hr x 24hr (goal) along with Pro-stat 1 pk TID. Water flush 50ml Q6H if allowed, adjust PRN. TF at goal volume along with Pro-stat provide 1884 kcal (100%), 124 gm protein (91%), and 1263 ml free water(including flush). 2) TPN if NPO >7 days 3) Monitor NPO status, lab values, weight trend, and I/O Expected Outcomes/Goals: Intake to meet >75% estimated needs Lab values to improve FU 2-3 days RUDDY VARELA MD Aug 04, 2025 22:50
--- NOTE | 2025-08-04 23:34 | DVHPN2 ---
Subjective DOS: 08/04/2025 Patient seen and examined at bedside. Remains on supplemental oxygen Overnight events reviewed. Reviewed: Care Plan, H&P, Labs, Medications, Previous Orders, Radiology, Other (Consultations) Changes from previous H/P or p: No Changes General: Per HPI Objective Vitals Vital Signs Date Time Temp Pulse Resp B/P (MAP) Pulse Ox O2 Delivery O2 Flow Rate FiO2 08/04/25 22:55 70 112/69 08/04/25 22:46 20 98 2.0 08/04/25 22:34 Nasal Cannula* 28 08/04/25 20:00 98.8 98.8 Intake/Output Intake and Output 08/04/25 07:00 Intake Total 602.81 ml Output Total 1625 ml Balance -1022.19 ml Intake Oral 450 ml IV Total 152.81 ml Output Urine Total 1625 ml Exam Gen.: Patient lying in bed in no apparent distress. On supplemental oxygen. Head: Normocephalic, atraumatic. Eyes: EOMI/PERRLA. Ears: Normal hearing. Normal anatomy. Neck/trachea: Trachea midline, supple. Nose: Normal external anatomy. Mouth: Moist mucous membranes. Chest: Decreased air entry bilaterally. No wheezing or rhonchi. Cardiovascular: Positive S1, positive S2. Regular rate and rhythm. Abdomen: Positive bowel sounds in all 4 quadrants. Soft, non-tender, non- distended. : Deferred. Rectal: Deferred. Skin: Warm, dry. Intact. Extremities: 2+ radial pulses bilaterally. No lower extremity edema. Neuro: Awake, alert. No gross motor or sensory deficits. Cranial nerves II through XII intact. Gait not assessed. General Appearance: Alert, Cooperative HEENT: Atraumatic, PERRLA, Other (Right IJ central line with no signs of bleeding/infection) Lungs: Clear to auscultation Chest/Breasts: Other (Pacemaker in place) Cardiovascular: Normal S1, Normal S2, Other (V paced) Abdomen: Normal bowel sounds, Soft Genitourinary: Other ([place]'s catheter in place) Musculoskeletal: Weak motor strength RUE, Weak motor strength LUE, Weak motor strength RLE, Weak motor strength LLE Neuro: Cranial nerves 3-12 NL Skin: Dry, Intact Medications Current Medications Medications Dose Ordered Sig/Lizabeth Route Start Time Stop Time Status Last Admin Dose Admin Ondansetron HCl 4 mg Q4HP PRN IV 07/22/25 15:00 Nitroglycerin 0.4 mg Q5MINP PRN SL 07/22/25 15:00 Diagnostic Test (Pha) 1 strip ACHS 07/22/25 17:00 08/04/25 22:11 1 STRIP Insulin Human Regular ACHS SC 07/22/25 17:00 08/04/25 22:09 3 UNITS Dextrose 50 ml UD PRN IV 07/22/25 16:30 Acetaminophen 500 mg Q6HP PRN PO 07/23/25 17:45 07/25/25 01:52 500 MG Docusate Sodium 100 mg BID PO 07/23/25 22:00 08/01/25 22:11 100 MG Memantine 5 mg HS PO 07/23/25 22:00 08/04/25 21:55 5 MG Midazolam HCl 100 ml @ 1 mls/hr Q24H IV 07/24/25 02:45 Cancel Fentanyl Citrate 250 ml @ 2.5 mls/hr Q24H IV 07/24/25 02:45 Cancel Pantoprazole Sodium 40 mg DAILY IV 07/25/25 10:00 08/04/25 10:33 40 MG Norepinephrine Bitartrate 250 ml @ 3.75 mls/hr Q24H IV 07/25/25 10:45 07/31/25 00:47 3.75 MLS/HR Amiodarone HCl 200 mg Q12HR GT 07/25/25 22:00 08/04/25 21:54 200 MG Azithromycin 250 ml @ 125 mls/hr DAILY IV 07/28/25 10:00 Cancel Purified Water 150 ml Q4HR NG 07/30/25 14:00 08/04/25 21:55 150 ML Enteral Nutritional Formula 1,000 ml 60ML/HR GT 07/30/25 16:45 08/04/25 09:31 1,000 ML Hydralazine HCl 10 mg Q6HP PRN IV 07/30/25 16:45 08/02/25 06:40 10 MG Apixaban 2.5 mg BID GT 07/31/25 22:00 08/04/25 21:54 2.5 MG Aspirin 81 mg DAILY GT 08/01/25 10:00 08/04/25 10:16 81 MG Atorvastatin Calcium 40 mg HS GT 07/31/25 22:00 12/5/25 21:55 40 MG Empaglifozin 25 mg DAILY GT 08/01/25 10:00 08/04/25 10:20 25 MG Metoprolol Tartrate 25 mg BID NG 08/02/25 10:00 08/04/25 21:55 25 MG Hydrochlorothiazide 25 mg DAILY NG 08/02/25 10:00 08/04/25 10:19 25 MG Albuterol 2.5 mg Q8HPRN NEB 08/04/25 22:00 Acetylcysteine 200 mg Q8HR IN 08/04/25 22:00 08/04/25 22:34 200 MG Laboratory Results Laboratory Tests 08/04/25 02:39 Chemistry Test 08/04/25 02:39 Calcium Level 9.4 mg/dL (8.7-10.4) Magnesium Level 2.6 mg/dL (1.6-2.6) Urinalysis Test 07/22/25 10:51 Urine Color Light-yellow (Yellow) Urine Clarity Clear (Clear) Urine pH 5.5 (5.0-9.0) Urine Specific [place] 1.025 (1.001-1.035) Urine Protein Negative (Negative) Urine Ketones Negative (Negative) Urine Blood 2+ /uL (Negative) H Urine Nitrite Negative (Negative) Urine Bilirubin Negative (Negative) Urine Urobilinogen Normal mg/dL (Negative) Urine Leukocyte Esterase Negative /uL (Negative) Urine RBC 57 /hpf (0 - 3) Urine Microscopic WBC 11 /HPF (0-3) H Urine Squamous Epithelial Cells None seen /hpf (<5) Urine Bacteria None seen /hpf (None Seen) Urine Glucose 4+ mg/dL (Normal) H Microbiology Microbiology Date/Time Source Procedure Growth Status 07/27/25 11:21 Blood Blood Culture - Final NO GROWTH AFTER 5 DAYS OF INCUBATION. Complete 07/24/25 03:35 Urine - [place] Urine Culture - Final Complete 07/24/25 03:26 Trachea Gram Stain - Final Complete 07/24/25 03:26 Trachea Respiratory Culture - Final Complete Assessment/Plan Assessment/Plan Impression: Acute hypoxic respiratory failure Dependence on supplemental oxygen S/p cardiac arrest Pulmonary congestion Congestive heart failure Obesity Events: Remains on supplemental oxygen On 2 LPM NC Taper O2 as tolerated Remains off pressors, hemodynamically stable. Head of bed elevation Aspiration precautions Continue bronchodilators/Mucomyst Chest physiotherapy Continue antibiotics Incentive spirometry Amiodarone PO Accu-Cheks, ISS. Patient is receiving free water. Monitor sodium Tube feeds via NGT for nutritional support Chest x-ray reviewed, notable for pulmonary edema. Labs and imaging reviewed. Rest of plan as noted below. Plan: S/p extubation on 08/03/25 Supplemental oxygen Titrate to keep O2 sats above 92%. Head of bed elevation Aspiration precautions Continue bronchodilators Continue antibiotics Incentive spirometry Accu-Cheks, ISS Tube feeds for nutritional support Monitor renal function. Monitor electrolytes. Supplement as necessary. Monitor ins and outs. Recommend diet and lifestyle modifications for weight reduction Obesity complicates all care DVT prophylaxis. Prognosis: Guarded given patient's multiple co-morbidities. Condition: Critical Rest of plan per hospitalist and other consultants. A total of 35 minutes of critical care time was spent reviewing the patient record, examining the patient, making a diagnostic and therapeutic plan, discussing this plan with the medical personnel, following up on diagnostic studies and following the patient for clinical stability excluding any and all procedures. At least 50% of this time was spent in direct, [id number] contact. Thank you, HERMINIA Sweeney, for allowing me to participate in this patient's care. Further recommendations will depend on the patient's clinical course. Please do not hesitate to contact me if you have any questions or concerns. This medical document was created using an electronic medical record system with [employer] dictation system. Although these documentations are being carefully reviewed, there may still be some phonetic and typographical changes. The errors are purely typographical, due to imperfection on the software program, and do not reflect any compromise in the patient's medical care. Plan discussed with: Patient, Other (JUVENAL Mari) My Orders Orders - RUBI ASIF MD Procedure Category Date Status Time Albuterol Medneb PHA 08/04/25 In Process (Ventolin Medneb) 22:00 Acetylcysteine PHA 08/04/25 In Process Inhalation 10% 22:00 Visit Coding Pulmonary Billing Provider: RUBI ASIF MD Date of Service if different f: Aug 04, 2025 Common Visit Codes: [id number] INP/OBS CARE(HIGH), [id number] CARE 30-74 MIN RUBI ASIF MD Aug 04, 2025 23:34
--- NOTE | 2025-08-04 23:35 | DVHPN2 ---
Progress Note - Dictate Date Seen: Aug 04, 2025 Has the PT tested + for MRSA If YES, has PT been informed?: No Medical Necessity Reason Pt with a Central, PICC or Fol: No Subjective Patient was seen and evaluated in follow up in the ICU. Patient is on 2 LPM NC. Patient failed swallow eval. NGT was placed. NA 154, BUN 38. Chest x-ray shows stable pulmonary edema. vital signs Vital Sign Date Time Temp Pulse Resp B/P (MAP) Pulse Ox O2 Delivery O2 Flow Rate FiO2 08/04/25 11:17 70 108/59 08/04/25 11:15 22 100 08/04/25 10:00 Nasal Cannula* 2 28 08/04/25 09:45 98.8 209.8 Total Intake and Output 08/03/25 08/03/25 08/04/25 15:00 23:00 07:00 Intake Total 152.81 ml 450 ml Output Total 825 ml 800 ml Balance 152.81 ml -825 ml -350 ml medications Current Medications Medications Dose Ordered Sig/Lizabeth Route Start Time Stop Time Status Last Admin Dose Admin Ondansetron HCl 4 mg Q4HP PRN IV 07/22/25 15:00 Nitroglycerin 0.4 mg Q5MINP PRN SL 07/22/25 15:00 Diagnostic Test (Pha) 1 strip ACHS 07/22/25 17:00 08/04/25 11:37 1 STRIP Insulin Human Regular ACHS SC 07/22/25 17:00 08/04/25 11:38 3 UNITS Dextrose 50 ml UD PRN IV 07/22/25 16:30 Acetaminophen 500 mg Q6HP PRN PO 07/23/25 17:45 07/25/25 01:52 500 MG Docusate Sodium 100 mg BID PO 07/23/25 22:00 08/01/25 22:11 100 MG Memantine 5 mg HS PO 07/23/25 22:00 08/03/25 21:45 5 MG Midazolam HCl 100 ml @ 1 mls/hr Q24H IV 07/24/25 02:45 Cancel Fentanyl Citrate 250 ml @ 2.5 mls/hr Q24H IV 07/24/25 02:45 Cancel Pantoprazole Sodium 40 mg DAILY IV 07/25/25 10:00 08/04/25 10:33 40 MG Norepinephrine Bitartrate 250 ml @ 3.75 mls/hr Q24H IV 07/25/25 10:45 07/31/25 00:47 3.75 MLS/HR Amiodarone HCl 200 mg Q12HR GT 07/25/25 22:00 08/04/25 10:17 200 MG Azithromycin 250 ml @ 125 mls/hr DAILY IV 07/28/25 10:00 Cancel Purified Water 150 ml Q4HR NG 07/30/25 14:00 08/04/25 10:20 150 ML Enteral Nutritional Formula 1,000 ml 60ML/HR GT 07/30/25 16:45 08/04/25 09:31 1,000 ML Hydralazine HCl 10 mg Q6HP PRN IV 07/30/25 16:45 08/02/25 06:40 10 MG Apixaban 2.5 mg BID GT 07/31/25 22:00 08/04/25 10:17 2.5 MG Aspirin 81 mg DAILY GT 08/01/25 10:00 08/04/25 10:16 81 MG Atorvastatin Calcium 40 mg HS GT 07/31/25 22:00 08/03/25 21:56 40 MG Empaglifozin 25 mg DAILY GT 08/01/25 10:00 08/04/25 10:20 25 MG Levofloxacin/ Dextrose 150 ml @ 100 mls/hr DAILY IV 08/02/25 10:00 08/04/25 10:19 100 MLS/HR Metoprolol Tartrate 25 mg BID NG 08/02/25 10:00 08/04/25 10:17 25 MG Hydrochlorothiazide 25 mg DAILY 08/02/25 10:00 08/04/25 10:19 25 MG objective GENERAL: Alert and oriented x 3. No acute distress. EYES: PERRL, EOMI. Anicteric. HENT: Moist mucous membranes. LUNGS: Crackles to bilateral breath sounds. CARDIOVASCULAR: Irregular rate and rhythm. ABDOMEN: Soft, non-tender and non-distended. EXTREMITIES: No edema. SKIN: Warm, dry. laboratory and microbiology Laboratory Tests 08/04/25 02:39 Test 08/04/25 02:39 Range/Units Serum Glucose 125 H 74-106 mg/dL Problem List Non ST-elevation myocardial infarction, questionable type 1. Paroxysmal atrial fibrillation/atrial flutter, now NSR (on Eliquis therapy at home). [place] decompensated HFrEF, NYHA Class III. Presence of dual-chamber pacemaker ([employer]). Acute hypoxic respiratory failure. Diabetes mellitus, newly diagnosed. Hypertension. Dyslipidemia. Former smoker/alcoholic. Obesity. Assessment/Plan Continued all current supportive medical care. Amiodarone. Eliquis. Aspirin, Lipitor, Metoprolol. IV antibiotics as ordered. IV Hydralazine for SBP >150. GI prophylactics. Vasopressors for hemodynamic support. Additional plan as per the hospital course. Critical care time of 45 minutes provided to include time spent evaluation of patient at bedside, when appropriate patient/family education for diagnosis, treatment plan, review of pertinent medical information and discussion of care with specialty providers and PCP. Dietary Evaluation Review Comments: Nutrition Recommendation: 1) EN Glucerna 1.2Cal @ 55ml/hr x 24hr (goal) along with Pro-stat 1 pk TID. Water flush 50ml Q6H if allowed, adjust PRN. TF at goal volume along with Pro-stat provide 1884 kcal (100%), 124 gm protein (91%), and 1263 ml free water(including flush). 2) TPN if NPO >7 days 3) Monitor NPO status, lab values, weight trend, and I/O Expected Outcomes/Goals: Intake to meet >75% estimated needs Lab values to improve FU 2-3 days Plan discussed with: Patient ANUPAMA JACOBO MD Aug 04, 2025 12:37
[2025-08-05] VITALS (78 sets, daily range): BP systolic 90–124; BP diastolic 57–88; PULSE 70–82; RESP 11–27; TEMP 97.5–98.3; O2SAT 93–100
--- NOTE | 2025-08-05 01:36 | DVH ---
CHEST RADIOGRAPH Indication: PERSISTENT COUGH Technique: Single frontal view of the chest was obtained COMPARISON: XY CHEST PORTABLE on DOS: 08/04/25, XY CHEST PORTABLE on DOS: 08/03/25, XY CHEST PORTABLE on DOS: 08/03/25, XY CHEST XRAY 1 VIEW on DOS: 08/02/25, XY CHEST PORTABLE on DOS: 08/01/25 FINDINGS: Lines and Tubes: Unchanged. Lungs: Stable appearing moderate diffuse increased prominence of the pulmonary vasculature without evidence of focal consolidation. Pleura: No effusion. No pneumothorax. Cardiomediastinal contours: Unremarkable Bones: Unremarkable IMPRESSION: 1. Stable appearing moderate pulmonary vascular congestion. 2. Lines and tubes unchanged.
[2025-08-05 04:20] LABS: Hematocrit 50.1 % (41.0-53.0); Hemoglobin 16.3 g/dL (13.5-17.5); Mean Corpuscular Hemoglobin 31.9 pg (28.0-32.0); Mean Corpuscular Volume 97.9 fL (80.0-100.0); Nucleated Red Blood Cells % 0.1 %
[2025-08-05 04:37] LABS: Anion Gap 10 (5-15); Carbon Dioxide 30 mmol/L (20-31)
[2025-08-05 04:39] LABS: Calcium 9.5 mg/dL (8.7-10.4)
[2025-08-05 04:44] LABS: BUN/Creatinine Ratio 30.9 (10.0-20.0)
[2025-08-05 04:56] LABS: Blood Urea Nitrogen 30 mg/dL (9-23); Chloride 109 mmol/L (98-107); Glucose 144 mg/dL (74-106); Potassium 3.4 mmol/L (3.5-5.1); Sodium 149 mmol/L (136-145)
--- NOTE | 2025-08-05 13:38 | DVHPN2 ---
Subjective seen in bed resting Reviewed: Care Plan, H&P, Labs, Medications, Previous Orders, Radiology, Other (Consultations) Changes from previous H/P or p: No Changes General: Per HPI Objective Vitals Vital Signs Date Time Temp Pulse Resp B/P (MAP) Pulse Ox O2 Delivery O2 Flow Rate FiO2 08/05/25 12:00 70 08/05/25 12:00 17 98 Nasal Cannula* 2 28 08/05/25 11:00 98/65 (76) 08/05/25 09:15 97.5 97.5 Intake/Output Intake and Output 08/05/25 07:00 Intake Total 2510 ml Output Total 2125 ml Balance 385 ml Intake Oral 950 ml IV Total 1050 ml Tube Feeding 510 ml Output Urine Total 2125 ml # Bowel Movements 5 General Appearance: Alert, Cooperative HEENT: Atraumatic, PERRLA, Other (Right IJ central line with no signs of bleeding/infection) Lungs: Clear to auscultation Chest/Breasts: Other (Pacemaker in place) Cardiovascular: Normal S1, Normal S2, Other (V paced) Abdomen: Normal bowel sounds, Soft Genitourinary: Other ([place]'s catheter in place) Musculoskeletal: Weak motor strength RUE, Weak motor strength LUE, Weak motor strength RLE, Weak motor strength LLE Neuro: Cranial nerves 3-12 NL Skin: Dry, Intact Medications Current Medications Medications Dose Ordered Sig/Lizabeth Route Start Time Stop Time Status Last Admin Dose Admin Ondansetron HCl 4 mg Q4HP PRN IV 07/22/25 15:00 Nitroglycerin 0.4 mg Q5MINP PRN SL 07/22/25 15:00 Diagnostic Test (Pha) 1 strip ACHS 07/22/25 17:00 08/05/25 11:26 1 STRIP Insulin Human Regular ACHS SC 07/22/25 17:00 08/05/25 11:30 3 UNITS Dextrose 50 ml UD PRN IV 07/22/25 16:30 Acetaminophen 500 mg Q6HP PRN PO 07/23/25 17:45 07/25/25 01:52 500 MG Docusate Sodium 100 mg BID PO 07/23/25 22:00 08/01/25 22:11 100 MG Memantine 5 mg HS PO 07/23/25 22:00 08/04/25 21:55 5 MG Midazolam HCl 100 ml @ 1 mls/hr Q24H IV 07/24/25 02:45 Cancel Fentanyl Citrate 250 ml @ 2.5 mls/hr Q24H IV 07/24/25 02:45 Cancel Pantoprazole Sodium 40 mg DAILY IV 07/25/25 10:00 08/05/25 09:17 40 MG Norepinephrine Bitartrate 250 ml @ 3.75 mls/hr Q24H IV 07/25/25 10:45 07/31/25 00:47 3.75 MLS/HR Amiodarone HCl 200 mg Q12HR GT 07/25/25 22:00 08/05/25 09:18 200 MG Azithromycin 250 ml @ 125 mls/hr DAILY IV 07/28/25 10:00 Cancel Purified Water 150 ml Q4HR NG 07/30/25 14:00 08/05/25 09:19 150 ML Enteral Nutritional Formula 1,000 ml 60ML/HR GT 07/30/25 16:45 08/04/25 09:31 1,000 ML Hydralazine HCl 10 mg Q6HP PRN IV 07/30/25 16:45 08/02/25 06:40 10 MG Apixaban 2.5 mg BID GT 07/31/25 22:00 08/05/25 09:18 2.5 MG Aspirin 81 mg DAILY GT 08/01/25 10:00 08/05/25 09:18 81 MG Atorvastatin Calcium 40 mg HS GT 07/31/25 22:00 08/04/25 21:55 40 MG Empaglifozin 25 mg DAILY GT 08/01/25 10:00 08/05/25 09:18 25 MG Metoprolol Tartrate 25 mg BID NG 08/02/25 10:00 08/05/25 09:19 25 MG Hydrochlorothiazide 25 mg DAILY NG 08/02/25 10:00 08/05/25 09:19 25 MG Albuterol 2.5 mg Q8HPRN NEB 08/04/25 22:00 Acetylcysteine 200 mg Q8HR IN 08/04/25 22:00 08/04/25 22:34 200 MG Laboratory Results Laboratory Tests 08/05/25 03:00 Chemistry Test 08/05/25 03:00 Calcium Level 9.5 mg/dL (8.7-10.4) Urinalysis Test 07/22/25 10:51 Urine Color Light-yellow (Yellow) Urine Clarity Clear (Clear) Urine pH 5.5 (5.0-9.0) Urine Specific [place] 1.025 (1.001-1.035) Urine Protein Negative (Negative) Urine Ketones Negative (Negative) Urine Blood 2+ /uL (Negative) H Urine Nitrite Negative (Negative) Urine Bilirubin Negative (Negative) Urine Urobilinogen Normal mg/dL (Negative) Urine Leukocyte Esterase Negative /uL (Negative) Urine RBC 57 /hpf (0 - 3) Urine Microscopic WBC 11 /HPF (0-3) H Urine Squamous Epithelial Cells None seen /hpf (<5) Urine Bacteria None seen /hpf (None Seen) Urine Glucose 4+ mg/dL (Normal) H Microbiology Microbiology Date/Time Source Procedure Growth Status 07/27/25 11:21 Blood Blood Culture - Final NO GROWTH AFTER 5 DAYS OF INCUBATION. Complete 07/24/25 03:35 Urine - [place] Urine Culture - Final Complete 07/24/25 03:26 Trachea Gram Stain - Final Complete 07/24/25 03:26 Trachea Respiratory Culture - Final Complete Assessment/Plan Assessment/Plan -acute metabolic encephalopathy -acute hypoxic respiratory failure -questionable acute seizure activity with postictal state -acute on chronic diastolic heart failure -atrial flutter with controlled rate -recent placement of dual-chamber pacemaker -? History of ETOH -acute kidney injury, vasomotor nephropathy -obesity -primary hypertension -NSTEMI, probably type 2 -rhabdomyolysis Plan: Events: Patient extubated on 2 L nasal cannula. Continues to have difficulty swallowing. Neurologically, patient is appropriate. Restart tube feedings as previously ordered. Worsening hypernatremia. Start D5 water at 75 mL x1 L -increase metoprolol tartrate 25 mg p.o. b.i.d. -ID consultation: Recommendations reviewed. -neurology recommendations appreciated. Cardiology consultation: Continue current anticoagulation -continue tube feeding and free water via NG tube -physical therapy -social service consultation for transfer to [facility] 08/05 resting in bed, has some cough Critical care time spent with patient discussing and formulating plan of care: 40 minutes. This does not include time spent performing procedures. Plan discussed with: Patient Date of Service: Aug 05, 2025 Billing Provider: LAMINE BOX MD Common Visit Codes: [id number] CARE 30-74 MIN LAMINE BOX MD Aug 05, 2025 13:38
--- NOTE | 2025-08-05 14:38 | DVHPN2 ---
Progress Note - Dictate Date Seen: Aug 05, 2025 Has the PT tested + for MRSA If YES, has PT been informed?: No Medical Necessity Reason Pt with a Central, PICC or Fol: No Subjective Patient was seen and evaluated in follow up in the ICU. Patient is on 2 LPM NC. Patient is noted with a dry barking like cough. NA 149, K 3.4, CL 109, BUN 30. Chest x-ray shows stable appearing moderate pulmonary vascular congestion. vital signs Vital Sign Date Time Temp Pulse Resp B/P (MAP) Pulse Ox O2 Delivery O2 Flow Rate FiO2 08/05/25 11:00 70 16 98/65 (76) 98 08/05/25 10:00 Nasal Cannula 2.0 08/05/25 10:00 28 08/05/25 09:15 97.5 97.5 Total Intake and Output 08/04/25 08/04/25 08/05/25 15:00 23:00 07:00 Intake Total 525 ml 1215 ml 770 ml Output Total 825 ml 1300 ml Balance 525 ml 390 ml -530 ml medications Current Medications Medications Dose Ordered Sig/Lizabeth Route Start Time Stop Time Status Last Admin Dose Admin Ondansetron HCl 4 mg Q4HP PRN IV 07/22/25 15:00 Nitroglycerin 0.4 mg Q5MINP PRN SL 07/22/25 15:00 Diagnostic Test (Pha) 1 strip ACHS 07/22/25 17:00 08/05/25 11:26 1 STRIP Insulin Human Regular ACHS SC 07/22/25 17:00 08/05/25 11:30 3 UNITS Dextrose 50 ml UD PRN IV 07/22/25 16:30 Acetaminophen 500 mg Q6HP PRN PO 07/23/25 17:45 07/25/25 01:52 500 MG Docusate Sodium 100 mg BID PO 07/23/25 22:00 08/01/25 22:11 100 MG Memantine 5 mg HS PO 07/23/25 22:00 08/04/25 21:55 5 MG Midazolam HCl 100 ml @ 1 mls/hr Q24H IV 07/24/25 02:45 Cancel Fentanyl Citrate 250 ml @ 2.5 mls/hr Q24H IV 07/24/25 02:45 Cancel Pantoprazole Sodium 40 mg DAILY IV 07/25/25 10:00 08/05/25 09:17 40 MG Norepinephrine Bitartrate 250 ml @ 3.75 mls/hr Q24H IV 07/25/25 10:45 07/31/25 00:47 3.75 MLS/HR Amiodarone HCl 200 mg Q12HR GT 07/25/25 22:00 08/05/25 09:18 200 MG Azithromycin 250 ml @ 125 mls/hr DAILY IV 07/28/25 10:00 Cancel Purified Water 150 ml Q4HR NG 07/30/25 14:00 08/05/25 09:19 150 ML Enteral Nutritional Formula 1,000 ml 60ML/HR GT 07/30/25 16:45 08/04/25 09:31 1,000 ML Hydralazine HCl 10 mg Q6HP PRN IV 07/30/25 16:45 08/02/25 06:40 10 MG Apixaban 2.5 mg BID GT 07/31/25 22:00 08/05/25 09:18 2.5 MG Aspirin 81 mg DAILY GT 08/01/25 10:00 08/05/25 09:18 81 MG Atorvastatin Calcium 40 mg HS GT 07/31/25 22:00 08/04/25 21:55 40 MG Empaglifozin 25 mg DAILY GT 08/01/25 10:00 08/05/25 09:18 25 MG Metoprolol Tartrate 25 mg BID NG 08/02/25 10:00 08/05/25 09:19 25 MG Hydrochlorothiazide 25 mg DAILY NG 08/02/25 10:00 08/05/25 09:19 25 MG Albuterol 2.5 mg Q8HPRN NEB 08/04/25 22:00 Acetylcysteine 200 mg Q8HR IN 08/04/25 22:00 08/04/25 22:34 200 MG objective GENERAL: Alert and oriented x 3. No acute distress. EYES: PERRL, EOMI. Anicteric. HENT: Moist mucous membranes. LUNGS: Crackles to bilateral breath sounds. CARDIOVASCULAR: Irregular rate and rhythm. ABDOMEN: Soft, non-tender and non-distended. EXTREMITIES: No edema. SKIN: Warm, dry. laboratory and microbiology Laboratory Tests 08/05/25 03:00 Test 08/05/25 03:00 Range/Units Serum Glucose 144 H 74-106 mg/dL Problem List Non ST-elevation myocardial infarction, questionable type 1. Paroxysmal atrial fibrillation/atrial flutter, now NSR (on Eliquis therapy at home). [place] decompensated HFrEF, NYHA Class III. Presence of dual-chamber pacemaker ([employer]). Acute hypoxic respiratory failure. Diabetes mellitus, newly diagnosed. Hypertension. Dyslipidemia. Former smoker/alcoholic. Obesity. Assessment/Plan Continued all current supportive medical care. Amiodarone. Eliquis. Aspirin, Lipitor, Metoprolol. IV antibiotics as ordered. IV Hydralazine for SBP >150. GI prophylactics. Vasopressors for hemodynamic support. Additional plan as per the hospital course. Critical care time of 45 minutes provided to include time spent evaluation of patient at bedside, when appropriate patient/family education for diagnosis, treatment plan, review of pertinent medical information and discussion of care with specialty providers and PCP. Dietary Evaluation Review Comments: Nutrition Recommendation: 1) EN Glucerna 1.2Cal @ 55ml/hr x 24hr (goal) along with Pro-stat 1 pk TID. Water flush 50ml Q6H if allowed, adjust PRN. TF at goal volume along with Pro-stat provide 1884 kcal (100%), 124 gm protein (91%), and 1263 ml free water(including flush). 2) TPN if NPO >7 days 3) Monitor NPO status, lab values, weight trend, and I/O Expected Outcomes/Goals: Intake to meet >75% estimated needs Lab values to improve FU 2-3 days Plan discussed with: Patient ANUPAMA JACOBO MD Aug 05, 2025 12:39
--- NOTE | 2025-08-05 20:34 | DVHPN2 ---
Progress Note - Dictate Date Seen: Aug 05, 2025 Has the PT tested + for MRSA If YES, has PT been informed?: No Medical Necessity Reason Pt with a Central, PICC or Fol: No Subjective Mr. Renee is a 80 years old right-handed gentleman with a history of hypertension, diabetes, atrial fibrillation, dementia, obesity, he came to the [facility] on 07/22/2025 with a chief complaint of altered mental status. I have seen and examined the patient in ICU, I have talked to his nurses, and other medical staff, he is alert oriented to person, place, he knows year, he said it was July, socially appropriate, he answers, he moves the arms and legs He had V-tach Pupil size: 08/04/2025, 08/05/25: Rt: 3-4mm, Lt: 3mm According to ER record, memantine and Eliquis were in his home medication list Urinalysis, 07/22/2025: WBC: 11, urine leukocyte esterase: Negative ABG, 07/26/2025: Combined metabolic and respiratory acidosis Blood culture, 07/22/2025: No growth Blood culture, 07/24/2025: WBC/HB/PLT/MCV, 07/26/2025: 11.9/75/147/97.7 PT/INR/ABG, 07/25/2025: 12.2/1.17/34.7, 07/26/2025: 12.5/1.2/38.4 Na, 07/28/25: 144, 07/29/2025: 147, 07/30/2025: 150, 07/31/2025: 151 BUN/CR, 07/25/2025: 17/1.44 GFR, 07/25/2025: 49, 07/31/2025: 32/0.94 HGB A1c, 07/24/2025: 7.8 TBI/AST/ALT/AP, 07/25/2025: 0.8/45/42/68 TG/HDL/LDL/HDL, 07/24/2025: 100/103/42/47 Vitamin B12, 07/24/25: 1658 TSH, 07/24/2025: 1.34 Chest x-ray, 07/24/2025: Heart is prominent size. There is moderate pulmonary vascular congestion. Dual lead left cardiac device. Enteric tube tip is not well visualized. Endotracheal tube is 4 cm from the de Chest x-ray, 07/26/2025: Lines and tubes in satisfactory position. Increased interstitial prominence. This may represent pulmonary vascular congestion and/or viral pneumonia. Chest x-ray, 07/31/2025: 1. Lines and tubes unchanged. 2. Stable diffuse increased prominence of the pulmonary vasculature CT head, 07/22/2025: No acute intracranial abnormality CT head, 08/01/2025: No evidence of acute intracranial abnormality vital signs Vital Sign Date Time Temp Pulse Resp B/P (MAP) Pulse Ox O2 Delivery O2 Flow Rate FiO2 08/05/25 18:45 70 99 08/05/25 18:00 16 Nasal Cannula* 2 28 08/05/25 15:55 98.3 98.3 Total Intake and Output 08/04/25 08/04/25 08/05/25 15:00 23:00 07:00 Intake Total 525 ml 1215 ml 770 ml Output Total 825 ml 1300 ml Balance 525 ml 390 ml -530 ml medications Current Medications Medications Dose Ordered Sig/Lizabeth Route Start Time Stop Time Status Last Admin Dose Admin Ondansetron HCl 4 mg Q4HP PRN IV 07/22/25 15:00 Nitroglycerin 0.4 mg Q5MINP PRN SL 07/22/25 15:00 Diagnostic Test (Pha) 1 strip ACHS 07/22/25 17:00 08/05/25 17:00 1 STRIP Insulin Human Regular ACHS SC 07/22/25 17:00 08/05/25 17:00 2 UNITS Dextrose 50 ml UD PRN IV 07/22/25 16:30 Acetaminophen 500 mg Q6HP PRN PO 07/23/25 17:45 07/25/25 01:52 500 MG Docusate Sodium 100 mg BID PO 07/23/25 22:00 08/01/25 22:11 100 MG Memantine 5 mg HS PO 07/23/25 22:00 08/04/25 21:55 5 MG Midazolam HCl 100 ml @ 1 mls/hr Q24H IV 07/24/25 02:45 Cancel Fentanyl Citrate 250 ml @ 2.5 mls/hr Q24H IV 07/24/25 02:45 Cancel Pantoprazole Sodium 40 mg DAILY IV 07/25/25 10:00 08/05/25 09:17 40 MG Norepinephrine Bitartrate 250 ml @ 3.75 mls/hr Q24H IV 07/25/25 10:45 07/31/25 00:47 3.75 MLS/HR Amiodarone HCl 200 mg Q12HR GT 07/25/25 22:00 08/05/25 09:18 200 MG Azithromycin 250 ml @ 125 mls/hr DAILY IV 07/28/25 10:00 Cancel Purified Water 150 ml Q4HR NG 07/30/25 14:00 08/05/25 17:42 150 ML Enteral Nutritional Formula 1,000 ml 60ML/HR GT 07/30/25 16:45 08/04/25 09:31 1,000 ML Hydralazine HCl 10 mg Q6HP PRN IV 07/30/25 16:45 08/02/25 06:40 10 MG Apixaban 2.5 mg BID GT 07/31/25 22:00 08/05/25 09:18 2.5 MG Aspirin 81 mg DAILY GT 08/01/25 10:00 08/05/25 09:18 81 MG Atorvastatin Calcium 40 mg HS GT 07/31/25 22:00 08/04/25 21:55 40 MG Empaglifozin 25 mg DAILY GT 08/01/25 10:00 08/05/25 09:18 25 MG Metoprolol Tartrate 25 mg BID NG 08/02/25 10:00 08/05/25 09:19 25 MG Hydrochlorothiazide 25 mg DAILY NG 08/02/25 10:00 08/05/25 09:19 25 MG Albuterol 2.5 mg Q8HPRN NEB 08/04/25 22:00 08/05/25 14:58 2.5 MG Acetylcysteine 200 mg Q8HR IN 08/04/25 22:00 08/05/25 14:58 200 MG objective The patient is well-nourished and well-developed with no distress. MENTAL STATUS: Subjective CRANIAL NERVES: Pupils are round and reactive, Rt: 3-4mm, Lt: 3mm. There are conjugated eye movement, no ptosis, no abnormal vascular dilatation or skin secretion. No signs of facial weakness SENSATION: Responses to light touch in the pinprick MOTOR: Normal tone in the upper and lower extremity. Normal muscle bulk. No fasciculations. Moves the arms and the legs REFLEXES: Deep tendon reflexes are symmetrical. No pathological reflexes. CEREBELLAR/COORDINATION: Deferred GAIT/STATION: deferred. laboratory and microbiology Laboratory Tests 08/05/25 03:00 Test 08/05/25 03:00 Range/Units Serum Glucose 144 H 74-106 mg/dL Problem List Coma, fever Metabolic encephalopathy Toxic encephalopathy Hypoxic encephalopathy Possible community-acquired pneumonia vs a typical viral pneumonia Possible drug fever Rule out intracranial infection Dementia, likely Alzheimer disease, he may have a least moderate degree of dementia AFib Coagulopathy secondary to anticoagulation treatment Acute respiratory failure Fever Possible community-acquired pneumonia vs a typical viral pneumonia Possible drug fever Assessment/Plan Monitoring Supportive treatment ICU care Check potassium, magnesium, RN to call hospitalist Re: V-tach Respiratory support Stabilize vitals Oxygen IV antibiotics Aspirin 81 mg daily Eliquis 2.5 mg b.i.d. Infectious disease consultation More recommendation per clinical course This medical document was created using an electronic medical record system with [employer] dictation system. Although this document has been carefully reviewed, there may still be some phonetic and typographical errors. These areas are purely typographical due to imperfections of the software programs, and do not reflect any compromise in the patient's medical care. Prognosis poor Dietary Evaluation Review Comments: Nutrition Recommendation: 1) EN Glucerna 1.2Cal @ 55ml/hr x 24hr (goal) along with Pro-stat 1 pk TID. Water flush 50ml Q6H if allowed, adjust PRN. TF at goal volume along with Pro-stat provide 1884 kcal (100%), 124 gm protein (91%), and 1263 ml free water(including flush). 2) TPN if NPO >7 days 3) Monitor NPO status, lab values, weight trend, and I/O Expected Outcomes/Goals: Intake to meet >75% estimated needs Lab values to improve FU 2-3 days Plan discussed with: Other CHRISTOPHER BLACK MD Aug 05, 2025 20:34
[2025-08-05 21:05] LABS: Chloride 105 mmol/L (98-107)
[2025-08-05 21:06] LABS: Anion Gap 10 (5-15); Calcium 9.8 mg/dL (8.7-10.4)
[2025-08-05 21:11] LABS: BUN/Creatinine Ratio 24.5 (10.0-20.0)
[2025-08-05 21:12] LABS: Magnesium 2.5 mg/dL (1.6-2.6)
[2025-08-05 21:18] LABS: Carbon Dioxide 32 mmol/L (20-31); Glucose 164 mg/dL (74-106); Potassium 3.2 mmol/L (3.5-5.1); Sodium 147 mmol/L (136-145)
[2025-08-05 21:19] LABS: Blood Urea Nitrogen 27 mg/dL (9-23)
[2025-08-05] MEDS: POTASSIUM CHL 20MEQ/100ML 100 ML IV ONE (21:46)
--- NOTE | 2025-08-05 23:03 | DVHPN2 ---
Consult Progress Note Objective vital signs Vital Sign Date Time Temp Pulse Resp B/P (MAP) Pulse Ox O2 Delivery O2 Flow Rate FiO2 08/05/25 21:56 70 20 98 08/05/25 21:48 Nasal Cannula* 2 28 08/05/25 21:47 109/70 08/05/25 15:55 98.3 98.3 Total Intake and Output 08/04/25 08/04/25 08/05/25 15:00 23:00 07:00 Intake Total 525 ml 1215 ml 770 ml Output Total 825 ml 1300 ml Balance 525 ml 390 ml -530 ml medications Current Medications Medications Dose Ordered Sig/Lizabeth Route Start Time Stop Time Status Last Admin Dose Admin Ondansetron HCl 4 mg Q4HP PRN IV 07/22/25 15:00 Nitroglycerin 0.4 mg Q5MINP PRN SL 07/22/25 15:00 Diagnostic Test (Pha) 1 strip ACHS 07/22/25 17:00 08/05/25 22:06 1 STRIP Insulin Human Regular ACHS SC 07/22/25 17:00 08/05/25 22:06 3 UNITS Dextrose 50 ml UD PRN IV 07/22/25 16:30 Acetaminophen 500 mg Q6HP PRN PO 07/23/25 17:45 07/25/25 01:52 500 MG Docusate Sodium 100 mg BID PO 07/23/25 22:00 08/01/25 22:11 100 MG Memantine 5 mg HS PO 07/23/25 22:00 08/05/25 21:47 5 MG Midazolam HCl 100 ml @ 1 mls/hr Q24H IV 07/24/25 02:45 Cancel Fentanyl Citrate 250 ml @ 2.5 mls/hr Q24H IV 07/24/25 02:45 Cancel Pantoprazole Sodium 40 mg DAILY IV 07/25/25 10:00 08/05/25 09:17 40 MG Norepinephrine Bitartrate 250 ml @ 3.75 mls/hr Q24H IV 07/25/25 10:45 07/31/25 00:47 3.75 MLS/HR Amiodarone HCl 200 mg Q12HR GT 07/25/25 22:00 08/05/25 21:47 200 MG Azithromycin 250 ml @ 125 mls/hr DAILY IV 07/28/25 10:00 Cancel Purified Water 150 ml Q4HR NG 07/30/25 14:00 08/05/25 21:47 150 ML Enteral Nutritional Formula 1,000 ml 60ML/HR GT 07/30/25 16:45 08/04/25 09:31 1,000 ML Hydralazine HCl 10 mg Q6HP PRN IV 07/30/25 16:45 08/02/25 06:40 10 MG Apixaban 2.5 mg BID GT 07/31/25 22:00 08/05/25 21:47 2.5 MG Aspirin 81 mg DAILY GT 08/01/25 10:00 08/05/25 09:18 81 MG Atorvastatin Calcium 40 mg HS GT 07/31/25 22:00 08/05/25 21:47 40 MG Empaglifozin 25 mg DAILY GT 08/01/25 10:00 08/05/25 09:18 25 MG Metoprolol Tartrate 25 mg BID NG 08/02/25 10:00 08/05/25 21:47 25 MG Hydrochlorothiazide 25 mg DAILY NG 08/02/25 10:00 08/05/25 09:19 25 MG Albuterol 2.5 mg Q8HPRN NEB 08/04/25 22:00 08/05/25 21:48 2.5 MG Acetylcysteine 200 mg Q8HR IN 08/04/25 22:00 08/05/25 21:48 200 MG laboratory and microbiology Laboratory Tests 08/05/25 20:45 08/05/25 03:00 Test 08/05/25 20:45 Range/Units Serum Glucose 164 H 74-106 mg/dL Problem List/Assessment/Plan Problem List/Assessment/Plan ASSESSMENT AND PLAN: ID Problem List: - acute hypoxic respiratory failure - atypical pneumonia -Altered mental status with decreased level of consciousness -Intermittent fevers during hospitalization (onset ~07/24, peak 102F on 07/25) -Leukocytosis (harry to 11.9 on 07/26) -Atrial fibrillation/atrial flutter; s/p pacemaker placement (06/27, [place]) -Hypertension -Possible community-acquired pneumonia vs atypical/viral pneumonia (no clear focal consolidation on CXR) -Possible drug fever (ceftriaxone; consider other recent medications) -Elevated troponin (657 on 07/24) and bundle branch block on EKG -Cardiomegaly with pulmonary vascular congestion on chest imaging -Intubated 07/23; on fentanyl infusion; on vasopressor support (norepinephrine) -Aortic systolic ejection murmur -Left shoulder blister, scabbed -Obesity (BMI 35.6) -Former alcohol use disorder; former smoker Assessment This is a male with a history of atrial fibrillation/atrial flutter, hypertension, former heavy alcohol use (currently abstinent), former smoker, and pacemaker placement on 06/27 who presented with decreased level of consciousness after several days of pacemaker-detected arrhythmias. Admission vitals were stable without initial fever; he subsequently developed fevers beginning ~07/24 peaking at 102F on 07/25, then trending down. He was intubated on 07/23, now on minimal ventilator support; he remains on norepinephrine (14 mcg) with improving blood pressures over 2448 hours. Cultures (blood, urine) have been negative to date; tracheal/respiratory culture shows normal oropharyngeal chely. Chest imaging demonstrates cardiomegaly and moderate pulmonary vascular congestion without a clear focal pneumonia. EKG shows a bundle branch block and troponin harry to 657 on 07/24. Leukocytosis increased to 11.9 on 07/26. UA shows mild pyuria (11 WBC), negative LE/nitrites, no bacteria, and 4+ glucosuria; urine cultures negative. Head CT shows no acute intracranial process; renal ultrasound without hydronephrosis. Differential for fevers and leukocytosis includes atypical/viral pneumonia, drug fever (ceftriaxone; also consider recent furosemide, increased statin dose, amiodarone), venous thromboembolism with possible inflammatory fever, aspiration pneumonitis, and noninfectious ischemic hepatopathy in the context of critical illness and elevated troponin. 07/28: fever curve improving but still febrile, doppler US negative for DVT, HIV negative 07/29: off pressors, hypoxia improving on minimal vent 07/30: no new fevers 07/31: requiring antipyretic, cooling blanket 08/01: worsening hypernatremia, no true fevers but recurrent elevated temps 08/02: doxycycline stopped, switched to levofloxacin for elevated temps 08/04: extubated to 2LNC, no ongoing sign of infection Plan: -Antimicrobials: - stop levofloxacin, will monitor clinically off all antibiotics -Diagnostics: - check legionella ag and mycoplasma ab--> negative -Fever/Leukocytosis: -Monitor fever curve; note that resolution may take several days if drug fever- related. -Continue to monitor WBC trend and clinical status. -Respiratory: -Continue ventilatory weaning as tolerated; monitor for signs of aspiration or evolving pneumonia. -Repeat chest imaging as clinically indicated. -Cardiovascular: -Continue amiodarone per cardiology. -Trend troponins. -Maintain adequate perfusion; coordinate with cardiology regarding vasopressor/inotrope strategy (cardioselective agents as appropriate). -Renal/Volume: -Monitor urine output (reported ~1,300 cc/day); continue diuresis with furosemide as clinically indicated. -Supportive care: -Antipyretics as needed (acetaminophen given once on 07/24). -Continue ICU-level monitoring and supportive measures. -Infection prevention: -No evidence for catheter- or skin-source infection on current exam; continue routine line care and skin assessments. Authorized and Performed by: ruddy varela Total critical care time: Approximately 66 minutes Due to a high probability of clinically significant, life threatening deterioration, the patient required my highest level of preparedness to intervene emergently and I personally spent this critical care time directly and personally managing the patient. This critical care time included obtaining a history; examining the patient; pulse oximetry; ordering and review of studies; arranging urgent treatment with development of a management plan; evaluation of patient's response to treatment; frequent reassessment; and, discussions with other providers. This critical care time was performed to assess and manage the high probability of imminent, life-threatening deterioration that could result in multi-organ failure. It was exclusive of separately billable procedures and treating other patients and teaching time. Isolation Precautions: standard \*Assessment and plan was discussed with the care team as written above. \*Plan is subject to change pending incorporation of new incoming information/diagnostics. Updates may be added as addendum at the bottom (OR TOP) of this note. Thank you for the consult. Infectious Diseases will continue to follow. Please contact Infectious Disease for any questions or concerns. ++++++++++++++++++++++++++++++++++++++++++++++++++++++++++++++++++++++++ Physical Exam: General: NAD Neck: Supple. No masses. HEENT: PERRL. Normal lids and conjunctiva. Moist mucous membranes. Oropharynx without lesions, exudates or excessive erythema. Normal appearance of the external aspects of the nose and ears. Heart: Regular rhythm, normal rate. Aortic systolic ejection murmur present. No lower extremity edema noted. Lungs: Normal respiratory effort. Clear to auscultation bilaterally. No wheezes. No crackles. Abdomen: Soft. Non-tender. Non-distended. Normal bowel sounds. No masses or abdominal hernia. Msk: No digital cyanosis. Normal tone in all 4 limbs. Skin: Warm and dry, no rashes. Left shoulder blister with scab. Neuro: Lethargic but oriented to person, place, and time when arousable. No facial droop or slurred speech. Extra-ocular movements intact. Sensation intact to soft touch in all 4 limbs. Decreased strength in upper and lower extremities. Psych: Appropriate mood. Full affect when interactive. Oriented to person, place, time, and situation when arousable. Dietary Evaluation Review Comments: Nutrition Recommendation: 1) EN Glucerna 1.2Cal @ 55ml/hr x 24hr (goal) along with Pro-stat 1 pk TID. Water flush 50ml Q6H if allowed, adjust PRN. TF at goal volume along with Pro-stat provide 1884 kcal (100%), 124 gm protein (91%), and 1263 ml free water(including flush). 2) TPN if NPO >7 days 3) Monitor NPO status, lab values, weight trend, and I/O Expected Outcomes/Goals: Intake to meet >75% estimated needs Lab values to improve FU 2-3 days RUDDY VARELA MD Aug 05, 2025 23:03
--- NOTE | 2025-08-05 23:54 | DVHPN2 ---
Subjective DOS: 08/05/2025 Patient seen and examined at bedside. Remains on supplemental oxygen Overnight events reviewed. Reviewed: Care Plan, H&P, Labs, Medications, Previous Orders, Radiology, Other (Consultations) Changes from previous H/P or p: No Changes General: Per HPI Objective Vitals Vital Signs Date Time Temp Pulse Resp B/P (MAP) Pulse Ox O2 Delivery O2 Flow Rate FiO2 08/05/25 23:00 70 12 101/67 (78) 95 08/05/25 22:00 Nasal Cannula* 2 28 08/05/25 20:00 98.1 98.1 Intake/Output Intake and Output 08/05/25 07:00 Intake Total 2510 ml Output Total 2125 ml Balance 385 ml Intake Oral 950 ml IV Total 1050 ml Tube Feeding 510 ml Output Urine Total 2125 ml # Bowel Movements 5 Exam Gen.: Patient lying in bed in no apparent distress. On supplemental oxygen. Head: Normocephalic, atraumatic. Eyes: EOMI/PERRLA. Ears: Normal hearing. Normal anatomy. Neck/trachea: Trachea midline, supple. Nose: Normal external anatomy. Mouth: Moist mucous membranes. Chest: Decreased air entry bilaterally. No wheezing or rhonchi. Cardiovascular: Positive S1, positive S2. Regular rate and rhythm. Abdomen: Positive bowel sounds in all 4 quadrants. Soft, non-tender, non- distended. : Deferred. Rectal: Deferred. Skin: Warm, dry. Intact. Extremities: 2+ radial pulses bilaterally. No lower extremity edema. Neuro: Awake, alert. No gross motor or sensory deficits. Cranial nerves II through XII intact. Gait not assessed. General Appearance: Alert, Cooperative HEENT: Atraumatic, PERRLA, Other (Right IJ central line with no signs of bleeding/infection) Lungs: Clear to auscultation Chest/Breasts: Other (Pacemaker in place) Cardiovascular: Normal S1, Normal S2, Other (V paced) Abdomen: Normal bowel sounds, Soft Genitourinary: Other ([place]ron[place]'s catheter in place) Musculoskeletal: Weak motor strength RUE, Weak motor strength LUE, Weak motor strength RLE, Weak motor strength LLE Neuro: Cranial nerves 3-12 NL Skin: Dry, Intact Medications Current Medications Medications Dose Ordered Sig/Lizabeth Route Start Time Stop Time Status Last Admin Dose Admin Ondansetron HCl 4 mg Q4HP PRN IV 07/22/25 15:00 Nitroglycerin 0.4 mg Q5MINP PRN SL 07/22/25 15:00 Diagnostic Test (Pha) 1 strip ACHS 07/22/25 17:00 08/05/25 22:06 1 STRIP Insulin Human Regular ACHS SC 07/22/25 17:00 08/05/25 22:06 3 UNITS Dextrose 50 ml UD PRN IV 07/22/25 16:30 Acetaminophen 500 mg Q6HP PRN PO 07/23/25 17:45 07/25/25 01:52 500 MG Docusate Sodium 100 mg BID PO 07/23/25 22:00 08/01/25 22:11 100 MG Memantine 5 mg HS PO 07/23/25 22:00 08/05/25 21:47 5 MG Midazolam HCl 100 ml @ 1 mls/hr Q24H IV 07/24/25 02:45 Cancel Fentanyl Citrate 250 ml @ 2.5 mls/hr Q24H IV 07/24/25 02:45 Cancel Pantoprazole Sodium 40 mg DAILY IV 07/25/25 10:00 08/05/25 09:17 40 MG Norepinephrine Bitartrate 250 ml @ 3.75 mls/hr Q24H IV 07/25/25 10:45 07/31/25 00:47 3.75 MLS/HR Amiodarone HCl 200 mg Q12HR GT 07/25/25 22:00 08/05/25 21:47 200 MG Azithromycin 250 ml @ 125 mls/hr DAILY IV 07/28/25 10:00 Cancel Purified Water 150 ml Q4HR NG 07/30/25 14:00 08/05/25 21:47 150 ML Enteral Nutritional Formula 1,000 ml 60ML/HR GT 07/30/25 16:45 08/04/25 09:31 1,000 ML Hydralazine HCl 10 mg Q6HP PRN IV 07/30/25 16:45 08/02/25 06:40 10 MG Apixaban 2.5 mg BID GT 07/31/25 22:00 08/05/25 21:47 2.5 MG Aspirin 81 mg DAILY GT 08/01/25 10:00 08/05/25 09:18 81 MG Atorvastatin Calcium 40 mg HS GT 07/31/25 22:00 08/05/25 21:47 40 MG Empaglifozin 25 mg DAILY GT 08/01/25 10:00 08/05/25 09:18 25 MG Metoprolol Tartrate 25 mg BID NG 08/02/25 10:00 08/05/25 21:47 25 MG Hydrochlorothiazide 25 mg DAILY NG 08/02/25 10:00 08/05/25 09:19 25 MG Albuterol 2.5 mg Q8HPRN NEB 08/04/25 22:00 08/05/25 21:48 2.5 MG Acetylcysteine 200 mg Q8HR IN 08/04/25 22:00 08/05/25 21:48 200 MG Laboratory Results Laboratory Tests 08/05/25 03:00 08/05/25 20:45 Chemistry Test 08/05/25 03:00 08/05/25 20:45 Calcium Level 9.5 mg/dL (8.7-10.4) 9.8 mg/dL (8.7-10.4) Magnesium Level 2.5 mg/dL (1.6-2.6) Urinalysis Test 07/22/25 10:51 Urine Color Light-yellow (Yellow) Urine Clarity Clear (Clear) Urine pH 5.5 (5.0-9.0) Urine Specific [place] 1.025 (1.001-1.035) Urine Protein Negative (Negative) Urine Ketones Negative (Negative) Urine Blood 2+ /uL (Negative) H Urine Nitrite Negative (Negative) Urine Bilirubin Negative (Negative) Urine Urobilinogen Normal mg/dL (Negative) Urine Leukocyte Esterase Negative /uL (Negative) Urine RBC 57 /hpf (0 - 3) Urine Microscopic WBC 11 /HPF (0-3) H Urine Squamous Epithelial Cells None seen /hpf (<5) Urine Bacteria None seen /hpf (None Seen) Urine Glucose 4+ mg/dL (Normal) H Microbiology Microbiology Date/Time Source Procedure Growth Status 07/27/25 11:21 Blood Blood Culture - Final NO GROWTH AFTER 5 DAYS OF INCUBATION. Complete 07/24/25 03:35 Urine - [place] Urine Culture - Final Complete 07/24/25 03:26 Trachea Gram Stain - Final Complete 07/24/25 03:26 Trachea Respiratory Culture - Final Complete Assessment/Plan Assessment/Plan Impression: Acute hypoxic respiratory failure Dependence on supplemental oxygen S/p cardiac arrest Pulmonary congestion Congestive heart failure Obesity Events: Remains on supplemental oxygen On 2 LPM NC Taper O2 as tolerated Monitor respiratory status closely Remains off pressors, hemodynamically stable. Aspiration risk. Head of bed elevation Aspiration precautions Continue bronchodilators/Mucomyst Chest physiotherapy Continue antibiotics Incentive spirometry Amiodarone PO/Eliquis/metoprolol for AFib Accu-Cheks, ISS. Protonix for GI ppx Patient is receiving free water. Monitor sodium Tube feeds via NGT for nutritional support Chest x-ray reviewed, moderate pulmonary vascular congestion. Labs and imaging reviewed. Rest of plan as noted below. Plan: S/p extubation on 08/03/25 Supplemental oxygen Titrate to keep O2 sats above 92%. Head of bed elevation Aspiration precautions Continue bronchodilators Continue antibiotics Incentive spirometry Accu-Cheks, ISS Tube feeds for nutritional support Monitor renal function. Monitor electrolytes. Supplement as necessary. Monitor ins and outs. Recommend diet and lifestyle modifications for weight reduction Obesity complicates all care DVT prophylaxis. Prognosis: Guarded given patient's multiple co-morbidities. Condition: Critical Rest of plan per hospitalist and other consultants. A total of 35 minutes of critical care time was spent reviewing the patient record, examining the patient, making a diagnostic and therapeutic plan, discussing this plan with the medical personnel, following up on diagnostic studies and following the patient for clinical stability excluding any and all procedures. At least 50% of this time was spent in direct, [id number] contact. Thank you, HERMINIA Sweeney, for allowing me to participate in this patient's care. Further recommendations will depend on the patient's clinical course. Please do not hesitate to contact me if you have any questions or concerns. This medical document was created using an electronic medical record system with [employer] dictation system. Although these documentations are being carefully reviewed, there may still be some phonetic and typographical changes. The errors are purely typographical, due to imperfection on the software program, and do not reflect any compromise in the patient's medical care. Plan discussed with: Patient, Other (JUVENAL Katz) Visit Coding Pulmonary Billing Provider: RUBI ASIF MD Date of Service if different f: Aug 05, 2025 Common Visit Codes: [id number] INP/OBS CARE(HIGH), [id number] CARE 30-74 MIN RUBI ASIF MD Aug 05, 2025 23:54
[2025-08-06] VITALS (45 sets, daily range): BP systolic 90–126; BP diastolic 53–87; PULSE 70–83; RESP 13–22; TEMP 97.8–98.7; O2SAT 89–100
[2025-08-06 04:08] LABS: Hematocrit 50.3 % (41.0-53.0); Hemoglobin 16.6 g/dL (13.5-17.5); Mean Corpuscular Hemoglobin 31.9 pg (28.0-32.0); Mean Corpuscular Volume 96.7 fL (80.0-100.0); Nucleated Red Blood Cells % 0.2 %
[2025-08-06 04:18] LABS: Chloride 105 mmol/L (98-107)
[2025-08-06 04:19] LABS: Anion Gap 9 (5-15)
[2025-08-06 04:20] LABS: Calcium 9.5 mg/dL (8.7-10.4)
[2025-08-06 04:25] LABS: BUN/Creatinine Ratio 29.2 (10.0-20.0); Magnesium 2.4 mg/dL (1.6-2.6)
[2025-08-06 05:06] LABS: Blood Urea Nitrogen 28 mg/dL (9-23); Carbon Dioxide 32 mmol/L (20-31); Glucose 167 mg/dL (74-106); Potassium 3.4 mmol/L (3.5-5.1); Sodium 146 mmol/L (136-145)
[2025-08-06] MEDS: POTASSIUM CHL 20MEQ/100ML 100 ML IV ONE (05:39)
[2025-08-06] MEDS ORDERED: ALBUTEROL SULF 2.5 MG/0.5ML(0.5%) NEB SOLN NEB PRN (12:30)
[2025-08-06] MEDS: ALBUTEROL SULF 2.5 MG/0.5ML(0.5%) NEB SOLN NEB SCH (13:27)
--- NOTE | 2025-08-06 14:21 | DVHPN2 ---
Subjective seen in bed resting Reviewed: Care Plan, H&P, Labs, Medications, Previous Orders, Radiology, Other (Consultations) Changes from previous H/P or p: No Changes General: Per HPI Objective Vitals Vital Signs Date Time Temp Pulse Resp B/P (MAP) Pulse Ox O2 Delivery O2 Flow Rate FiO2 08/06/25 12:00 98.2 70 15 126/57 (80) 94 98.2 08/06/25 12:00 Nasal Cannula* 2 28 Intake/Output Intake and Output 08/06/25 05:00 Intake Total 1970 ml Output Total 2550 ml Balance -580 ml Intake Oral 1200 ml IV Total 100 ml Tube Feeding 670 ml Output Urine Total 2550 ml # Voids 1 # Bowel Movements 1 General Appearance: Alert, Cooperative HEENT: Atraumatic, PERRLA, Other (Right IJ central line with no signs of bleeding/infection) Lungs: Clear to auscultation Chest/Breasts: Other (Pacemaker in place) Cardiovascular: Normal S1, Normal S2, Other (V paced) Abdomen: Normal bowel sounds, Soft Genitourinary: Other (Orona's catheter in place) Musculoskeletal: Weak motor strength RUE, Weak motor strength LUE, Weak motor strength RLE, Weak motor strength LLE Neuro: Cranial nerves 3-12 NL Skin: Dry, Intact Medications Current Medications Medications Dose Ordered Sig/Lizabeth Route Start Time Stop Time Status Last Admin Dose Admin Ondansetron HCl 4 mg Q4HP PRN IV 07/22/25 15:00 Nitroglycerin 0.4 mg Q5MINP PRN SL 07/22/25 15:00 Diagnostic Test (Pha) 1 strip ACHS 07/22/25 17:00 08/06/25 11:31 1 STRIP Insulin Human Regular ACHS SC 07/22/25 17:00 08/06/25 11:35 4 UNITS Dextrose 50 ml UD PRN IV 07/22/25 16:30 Acetaminophen 500 mg Q6HP PRN PO 07/23/25 17:45 07/25/25 01:52 500 MG Docusate Sodium 100 mg BID PO 07/23/25 22:00 08/06/25 10:41 100 MG Memantine 5 mg HS PO 07/23/25 22:00 08/05/25 21:47 5 MG Midazolam HCl 100 ml @ 1 mls/hr Q24H IV 07/24/25 02:45 Cancel Fentanyl Citrate 250 ml @ 2.5 mls/hr Q24H IV 07/24/25 02:45 Cancel Pantoprazole Sodium 40 mg DAILY IV 07/25/25 10:00 08/06/25 10:40 40 MG Norepinephrine Bitartrate 250 ml @ 3.75 mls/hr Q24H IV 07/25/25 10:45 07/31/25 00:47 3.75 MLS/HR Amiodarone HCl 200 mg Q12HR GT 07/25/25 22:00 08/06/25 10:39 200 MG Azithromycin 250 ml @ 125 mls/hr DAILY IV 07/28/25 10:00 Cancel Purified Water 150 ml Q4HR NG 07/30/25 14:00 08/06/25 14:07 150 ML Enteral Nutritional Formula 1,000 ml 60ML/HR GT 07/30/25 16:45 08/04/25 09:31 1,000 ML Hydralazine HCl 10 mg Q6HP PRN IV 07/30/25 16:45 08/02/25 06:40 10 MG Apixaban 2.5 mg BID GT 07/31/25 22:00 08/06/25 10:39 2.5 MG Aspirin 81 mg DAILY GT 08/01/25 10:00 08/06/25 10:39 81 MG Atorvastatin Calcium 40 mg HS GT 07/31/25 22:00 08/05/25 21:47 40 MG Empaglifozin 25 mg DAILY GT 08/01/25 10:00 08/06/25 10:40 25 MG Metoprolol Tartrate 25 mg BID NG 08/02/25 10:00 08/06/25 10:41 25 MG Hydrochlorothiazide 25 mg DAILY NG 08/02/25 10:00 08/06/25 10:40 25 MG Acetylcysteine 200 mg Q8HR IN 08/04/25 22:00 08/06/25 13:27 200 MG Albuterol 2.5 mg Q6HPRN PRN NEB 08/06/25 12:30 Albuterol 2.5 mg Q8H NEB 08/06/25 14:00 08/06/25 13:27 2.5 MG Laboratory Results Laboratory Tests 08/06/25 03:52 Chemistry Test 08/05/25 20:45 08/06/25 03:52 Calcium Level 9.8 mg/dL (8.7-10.4) 9.5 mg/dL (8.7-10.4) Magnesium Level 2.5 mg/dL (1.6-2.6) 2.4 mg/dL (1.6-2.6) Urinalysis Test 07/22/25 10:51 Urine Color Light-yellow (Yellow) Urine Clarity Clear (Clear) Urine pH 5.5 (5.0-9.0) Urine Specific [place] 1.025 (1.001-1.035) Urine Protein Negative (Negative) Urine Ketones Negative (Negative) Urine Blood 2+ /uL (Negative) H Urine Nitrite Negative (Negative) Urine Bilirubin Negative (Negative) Urine Urobilinogen Normal mg/dL (Negative) Urine Leukocyte Esterase Negative /uL (Negative) Urine RBC 57 /hpf (0 - 3) Urine Microscopic WBC 11 /HPF (0-3) H Urine Squamous Epithelial Cells None seen /hpf (<5) Urine Bacteria None seen /hpf (None Seen) Urine Glucose 4+ mg/dL (Normal) H Microbiology Microbiology Date/Time Source Procedure Growth Status 07/27/25 11:21 Blood Blood Culture - Final NO GROWTH AFTER 5 DAYS OF INCUBATION. Complete 07/24/25 03:35 Urine - [place] Urine Culture - Final Complete 07/24/25 03:26 Trachea Gram Stain - Final Complete 07/24/25 03:26 Trachea Respiratory Culture - Final Complete Assessment/Plan Assessment/Plan -acute metabolic encephalopathy -acute hypoxic respiratory failure -questionable acute seizure activity with postictal state -acute on chronic diastolic heart failure -atrial flutter with controlled rate -recent placement of dual-chamber pacemaker -? History of ETOH -acute kidney injury, vasomotor nephropathy -obesity -primary hypertension -NSTEMI, probably type 2 -rhabdomyolysis Plan: Events: Patient extubated on 2 L nasal cannula. Continues to have difficulty swallowing. Neurologically, patient is appropriate. Restart tube feedings as previously ordered. Worsening hypernatremia. Start D5 water at 75 mL x1 L -increase metoprolol tartrate 25 mg p.o. b.i.d. -ID consultation: Recommendations reviewed. -neurology recommendations appreciated. Cardiology consultation: Continue current anticoagulation -continue tube feeding and free water via NG tube -physical therapy -social service consultation for transfer to [facility] 08/05 resting in bed, has some cough 08/06 speech eval Critical care time spent with patient discussing and formulating plan of care: 40 minutes. This does not include time spent performing procedures. Plan discussed with: Patient My Orders Orders - LAMINE BOX MD Procedure Category Date Status Time Clear Liq Diet DIET 08/06/25 Transmitted Breakfast Albuterol Medneb PHA 08/06/25 In Process (Ventolin Medneb) 12:30 Date of Service: Aug 06, 2025 Billing Provider: LAMINE BOX MD Common Visit Codes: [id number] CARE 30-74 MIN LAMINE BOX MD Aug 06, 2025 14:21
--- NOTE | 2025-08-06 21:12 | DVHPN2 ---
Progress Note - Dictate Date Seen: Aug 06, 2025 Has the PT tested + for MRSA If YES, has PT been informed?: No Medical Necessity Reason Pt with a Central, PICC or Fol: No Subjective Mr. Renee is a 80 years old right-handed gentleman with a history of hypertension, diabetes, atrial fibrillation, dementia, obesity, he came to the [facility] on 07/22/2025 with a chief complaint of altered mental status. I have seen and examined the patient in [facility], I have talked to his nurses, and other medical staff, he is alert oriented to person, place, socially appropriate, he answers, he moves the arms and legs Pupil size: 08/04/2025, 08/05/25: Rt: 3-4mm, Lt: 3mm, 08/06/2025 Rt: 4mm, Lt: 3-4mm According to ER record, memantine and Eliquis were in his home medication list Urinalysis, 07/22/2025: WBC: 11, urine leukocyte esterase: Negative ABG, 07/26/2025: Combined metabolic and respiratory acidosis Blood culture, 07/22/2025: No growth Blood culture, 07/24/2025: WBC/HB/PLT/MCV, 07/26/2025: 11.9/75/147/97.7 PT/INR/ABG, 07/25/2025: 12.2/1.17/34.7, 07/26/2025: 12.5/1.2/38.4 Na, 07/28/25: 144, 07/29/2025: 147, 07/30/2025: 150, 07/31/2025: 151 08/01/25: 151, 08/04/2025: 154, 08/05/2025: 49, 08/06/2025: 146 BUN/CR, 07/25/2025: 17/1.44 GFR, 07/25/2025: 49, 07/31/2025: 32/0.94 HGB A1c, 07/24/2025: 7.8 TBI/AST/ALT/AP, 07/25/2025: 0.8/45/42/68 TG/HDL/LDL/HDL, 07/24/2025: 100/103/42/47 Vitamin B12, 07/24/25: 1658 TSH, 07/24/2025: 1.34 Chest x-ray, 07/24/2025: Heart is prominent size. There is moderate pulmonary vascular congestion. Dual lead left cardiac device. Enteric tube tip is not well visualized. Endotracheal tube is 4 cm from the de Chest x-ray, 07/26/2025: Lines and tubes in satisfactory position. Increased interstitial prominence. This may represent pulmonary vascular congestion and/or viral pneumonia. Chest x-ray, 07/31/2025: 1. Lines and tubes unchanged. 2. Stable diffuse increased prominence of the pulmonary vasculature CT head, 07/22/2025: No acute intracranial abnormality CT head, 08/01/2025: No evidence of acute intracranial abnormality vital signs Vital Sign Date Time Temp Pulse Resp B/P (MAP) Pulse Ox O2 Delivery O2 Flow Rate FiO2 08/06/25 19:00 70 17 102/62 (75) 92 08/06/25 18:06 Nasal Cannula 2.0 08/06/25 18:06 28 08/06/25 12:00 98.2 98.2 Total Intake and Output 08/05/25 08/05/25 08/06/25 15:00 23:00 07:00 Intake Total 1100 ml 1373 ml Output Total 1250 ml 1200 ml Balance -150 ml 173 ml medications Current Medications Medications Dose Ordered Sig/Lizabeth Route Start Time Stop Time Status Last Admin Dose Admin Ondansetron HCl 4 mg Q4HP PRN IV 07/22/25 15:00 Nitroglycerin 0.4 mg Q5MINP PRN SL 07/22/25 15:00 Diagnostic Test (Pha) 1 strip ACHS 07/22/25 17:00 08/06/25 17:00 1 STRIP Insulin Human Regular ACHS SC 07/22/25 17:00 08/06/25 17:00 2 UNITS Dextrose 50 ml UD PRN IV 07/22/25 16:30 Acetaminophen 500 mg Q6HP PRN PO 07/23/25 17:45 07/25/25 01:52 500 MG Docusate Sodium 100 mg BID PO 07/23/25 22:00 08/06/25 10:41 100 MG Memantine 5 mg HS PO 07/23/25 22:00 08/05/25 21:47 5 MG Midazolam HCl 100 ml @ 1 mls/hr Q24H IV 07/24/25 02:45 Cancel Fentanyl Citrate 250 ml @ 2.5 mls/hr Q24H IV 07/24/25 02:45 Cancel Pantoprazole Sodium 40 mg DAILY IV 07/25/25 10:00 08/06/25 10:40 40 MG Norepinephrine Bitartrate 250 ml @ 3.75 mls/hr Q24H IV 07/25/25 10:45 07/31/25 00:47 3.75 MLS/HR Amiodarone HCl 200 mg Q12HR GT 07/25/25 22:00 08/06/25 10:39 200 MG Azithromycin 250 ml @ 125 mls/hr DAILY IV 07/28/25 10:00 Cancel Purified Water 150 ml Q4HR NG 07/30/25 14:00 08/06/25 18:06 150 ML Enteral Nutritional Formula 1,000 ml 60ML/HR GT 07/30/25 16:45 08/04/25 09:31 1,000 ML Hydralazine HCl 10 mg Q6HP PRN IV 07/30/25 16:45 08/02/25 06:40 10 MG Apixaban 2.5 mg BID GT 07/31/25 22:00 08/06/25 10:39 2.5 MG Aspirin 81 mg DAILY GT 08/01/25 10:00 08/06/25 10:39 81 MG Atorvastatin Calcium 40 mg HS GT 07/31/25 22:00 08/05/25 21:47 40 MG Empaglifozin 25 mg DAILY GT 08/01/25 10:00 08/06/25 10:40 25 MG Metoprolol Tartrate 25 mg BID NG 08/02/25 10:00 08/06/25 10:41 25 MG Hydrochlorothiazide 25 mg DAILY NG 08/02/25 10:00 08/06/25 10:40 25 MG Acetylcysteine 200 mg Q8HR IN 08/04/25 22:00 08/06/25 18:06 200 MG Albuterol 2.5 mg Q6HPRN PRN NEB 08/06/25 12:30 Albuterol 2.5 mg Q8H NEB 08/06/25 14:00 08/06/25 18:06 2.5 MG objective The patient is well-nourished and well-developed with no distress. MENTAL STATUS: Subjective CRANIAL NERVES: Pupils are round and reactive, Rt: 3-4mm, Lt: 3mm. There are conjugated eye movement, no ptosis, no abnormal vascular dilatation or skin secretion. No signs of facial weakness SENSATION: Responses to light touch in the pinprick MOTOR: Normal tone in the upper and lower extremity. Normal muscle bulk. No fasciculations. Moves the arms and the legs REFLEXES: Deep tendon reflexes are symmetrical. No pathological reflexes. CEREBELLAR/COORDINATION: Deferred GAIT/STATION: deferred. laboratory and microbiology Laboratory Tests 08/06/25 03:52 Test 08/06/25 03:52 Range/Units Serum Glucose 167 H 74-106 mg/dL Problem List Coma, resolved Metabolic encephalopathy Toxic encephalopathy Hypoxic encephalopathy Possible community-acquired pneumonia vs a typical viral pneumonia Possible drug fever Rule out intracranial infection Hypernatremia Cognitive dysfunction, MCI versus dementia AFib Coagulopathy secondary to anticoagulation treatment Acute respiratory failure Fever Possible community-acquired pneumonia vs a typical viral pneumonia Possible drug fever Assessment/Plan Monitoring Supportive treatment ICU care Respiratory support Stabilize vitals Oxygen IV antibiotics Aspirin 81 mg daily Eliquis 2.5 mg b.i.d. Infectious disease consultation More recommendation per clinical course This medical document was created using an electronic medical record system with [employer] dictation system. Although this document has been carefully reviewed, there may still be some phonetic and typographical errors. These areas are purely typographical due to imperfections of the software programs, and do not reflect any compromise in the patient's medical care. Prognosis poor Dietary Evaluation Review Comments: Nutrition Recommendation: 1) EN Glucerna 1.2Cal @ 55ml/hr x 24hr (goal) along with Pro-stat 1 pk TID. Water flush 50ml Q6H if allowed, adjust PRN. TF at goal volume along with Pro-stat provide 1884 kcal (100%), 124 gm protein (91%), and 1263 ml free water(including flush). 2) TPN if NPO >7 days 3) Monitor NPO status, lab values, weight trend, and I/O Expected Outcomes/Goals: Intake to meet >75% estimated needs Lab values to improve FU 2-3 days Plan discussed with: Other CHRISTOPHER BLACK MD Aug 06, 2025 21:12
--- NOTE | 2025-08-06 22:43 | DVHPN2 ---
Subjective DOS: 08/06/2025 Patient seen and examined at bedside. Currently on room air Overnight events reviewed. Reviewed: Care Plan, H&P, Labs, Medications, Previous Orders, Radiology, Other (Consultations) Changes from previous H/P or p: No Changes General: Per HPI Objective Vitals Vital Signs Date Time Temp Pulse Resp B/P (MAP) Pulse Ox O2 Delivery O2 Flow Rate FiO2 08/06/25 19:00 70 17 102/62 (75) 92 08/06/25 18:06 Nasal Cannula 2.0 08/06/25 18:06 28 08/06/25 12:00 98.2 98.2 Intake/Output Intake and Output 08/06/25 07:00 Intake Total 2473 ml Output Total 2450 ml Balance 23 ml Intake Oral 1700 ml IV Total 100 ml Tube Feeding 673 ml Output Urine Total 2450 ml # Voids 1 Exam Gen.: Patient lying in bed in no apparent distress. On room air. Head: Normocephalic, atraumatic. Eyes: EOMI/PERRLA. Ears: Normal hearing. Normal anatomy. Neck/trachea: Trachea midline, supple. Nose: Normal external anatomy. Mouth: Moist mucous membranes. Chest: Decreased air entry bilaterally. No wheezing or rhonchi. Cardiovascular: Positive S1, positive S2. Regular rate and rhythm. Abdomen: Positive bowel sounds in all 4 quadrants. Soft, non-tender, non- distended. : Deferred. Rectal: Deferred. Skin: Warm, dry. Intact. Extremities: 2+ radial pulses bilaterally. No lower extremity edema. Neuro: Awake, alert. No gross motor or sensory deficits. Cranial nerves II through XII intact. Gait not assessed. General Appearance: Alert, Cooperative HEENT: Atraumatic, PERRLA, Other (Right IJ central line with no signs of bleeding/infection) Lungs: Clear to auscultation Chest/Breasts: Other (Pacemaker in place) Cardiovascular: Normal S1, Normal S2, Other (V paced) Abdomen: Normal bowel sounds, Soft Genitourinary: Other ([place]'s catheter in place) Musculoskeletal: Weak motor strength RUE, Weak motor strength LUE, Weak motor strength RLE, Weak motor strength LLE Neuro: Cranial nerves 3-12 NL Skin: Dry, Intact Medications Current Medications Medications Dose Ordered Sig/Lizabeth Route Start Time Stop Time Status Last Admin Dose Admin Ondansetron HCl 4 mg Q4HP PRN IV 07/22/25 15:00 Nitroglycerin 0.4 mg Q5MINP PRN SL 07/22/25 15:00 Diagnostic Test (Pha) 1 strip ACHS 07/22/25 17:00 08/06/25 17:00 1 STRIP Insulin Human Regular ACHS SC 07/22/25 17:00 08/06/25 17:00 2 UNITS Dextrose 50 ml UD PRN IV 07/22/25 16:30 Acetaminophen 500 mg Q6HP PRN PO 07/23/25 17:45 07/25/25 01:52 500 MG Docusate Sodium 100 mg BID PO 07/23/25 22:00 08/06/25 10:41 100 MG Memantine 5 mg HS PO 07/23/25 22:00 08/05/25 21:47 5 MG Midazolam HCl 100 ml @ 1 mls/hr Q24H IV 07/24/25 02:45 Cancel Fentanyl Citrate 250 ml @ 2.5 mls/hr Q24H IV 07/24/25 02:45 Cancel Pantoprazole Sodium 40 mg DAILY IV 07/25/25 10:00 08/06/25 10:40 40 MG Norepinephrine Bitartrate 250 ml @ 3.75 mls/hr Q24H IV 07/25/25 10:45 07/31/25 00:47 3.75 MLS/HR Amiodarone HCl 200 mg Q12HR GT 07/25/25 22:00 08/06/25 10:39 200 MG Azithromycin 250 ml @ 125 mls/hr DAILY IV 07/28/25 10:00 Cancel Purified Water 150 ml Q4HR NG 07/30/25 14:00 08/06/25 21:59 150 ML Enteral Nutritional Formula 1,000 ml 60ML/HR GT 07/30/25 16:45 08/04/25 09:31 1,000 ML Hydralazine HCl 10 mg Q6HP PRN IV 07/30/25 16:45 08/02/25 06:40 10 MG Apixaban 2.5 mg BID GT 07/31/25 22:00 08/06/25 10:39 2.5 MG Aspirin 81 mg DAILY GT 08/01/25 10:00 08/06/25 10:39 81 MG Atorvastatin Calcium 40 mg HS GT 07/31/25 22:00 08/05/25 21:47 40 MG Empaglifozin 25 mg DAILY GT 08/01/25 10:00 08/06/25 10:40 25 MG Metoprolol Tartrate 25 mg BID NG 08/02/25 10:00 08/06/25 10:41 25 MG Hydrochlorothiazide 25 mg DAILY NG 08/02/25 10:00 08/06/25 10:40 25 MG Acetylcysteine 200 mg Q8HR IN 08/04/25 22:00 08/06/25 18:06 200 MG Albuterol 2.5 mg Q6HPRN PRN NEB 08/06/25 12:30 Albuterol 2.5 mg Q8H NEB 08/06/25 14:00 08/06/25 18:06 2.5 MG Laboratory Results Laboratory Tests 08/06/25 03:52 Chemistry Test 08/06/25 03:52 Calcium Level 9.5 mg/dL (8.7-10.4) Magnesium Level 2.4 mg/dL (1.6-2.6) Urinalysis Test 07/22/25 10:51 Urine Color Light-yellow (Yellow) Urine Clarity Clear (Clear) Urine pH 5.5 (5.0-9.0) Urine Specific [place] 1.025 (1.001-1.035) Urine Protein Negative (Negative) Urine Ketones Negative (Negative) Urine Blood 2+ /uL (Negative) H Urine Nitrite Negative (Negative) Urine Bilirubin Negative (Negative) Urine Urobilinogen Normal mg/dL (Negative) Urine Leukocyte Esterase Negative /uL (Negative) Urine RBC 57 /hpf (0 - 3) Urine Microscopic WBC 11 /HPF (0-3) H Urine Squamous Epithelial Cells None seen /hpf (<5) Urine Bacteria None seen /hpf (None Seen) Urine Glucose 4+ mg/dL (Normal) H Microbiology Microbiology Date/Time Source Procedure Growth Status 07/27/25 11:21 Blood Blood Culture - Final NO GROWTH AFTER 5 DAYS OF INCUBATION. Complete 07/24/25 03:35 Urine - [place] Urine Culture - Final Complete 07/24/25 03:26 Trachea Gram Stain - Final Complete 07/24/25 03:26 Trachea Respiratory Culture - Final Complete Assessment/Plan Assessment/Plan Impression: Acute hypoxic respiratory failure Dependence on supplemental oxygen S/p cardiac arrest Pulmonary congestion Congestive heart failure Obesity Events: On 2 LPM NC --> room air No distress Improved oxygen requirements Pt has dyspnea on exertion Improving mentation Central line removed. Midline in place. Remains off pressors, hemodynamically stable. Aspiration risk. Head of bed elevation Aspiration precautions Continue bronchodilators/Mucomyst Chest physiotherapy Continue antibiotics Incentive spirometry Amiodarone PO/Eliquis/metoprolol for AFib Accu-Cheks, ISS. Protonix for GI ppx Patient is receiving free water. Monitor sodium Tube feeds via NGT for nutritional support Chest x-ray reviewed, moderate pulmonary vascular congestion. Patient is stable for downgrade from the pulmonary standpoint. Labs and imaging reviewed. Rest of plan as noted below. Plan: S/p extubation on 08/03/25 Supplemental oxygen PRN Titrate to keep O2 sats above 92%. Head of bed elevation Aspiration precautions Continue bronchodilators Continue antibiotics Incentive spirometry Accu-Cheks, ISS Tube feeds for nutritional support Monitor renal function. Monitor electrolytes. Supplement as necessary. Monitor ins and outs. Recommend diet and lifestyle modifications for weight reduction Obesity complicates all care DVT prophylaxis. Prognosis: Guarded given patient's multiple co-morbidities. Condition: Critical Rest of plan per hospitalist and other consultants. A total of 35 minutes of critical care time was spent reviewing the patient record, examining the patient, making a diagnostic and therapeutic plan, discussing this plan with the medical personnel, following up on diagnostic studies and following the patient for clinical stability excluding any and all procedures. At least 50% of this time was spent in direct, [id number]-an-bccw contact. Thank you, HERMINIA Sweeney, for allowing me to participate in this patient's care. Further recommendations will depend on the patient's clinical course. Please do not hesitate to contact me if you have any questions or concerns. This medical document was created using an electronic medical record system with [employer] dictation system. Although these documentations are being carefully reviewed, there may still be some phonetic and typographical changes. The errors are purely typographical, due to imperfection on the software program, and do not reflect any compromise in the patient's medical care. Plan discussed with: Patient, Other (JUVENAL Lechuga) My Orders Orders - RUBI ASIF MD Procedure Category Date Status Time Albuterol Medneb PHA 08/06/25 In Process (Ventolin Medneb) 14:00 Visit Coding Pulmonary Billing Provider: RUBI ASIF MD Date of Service if different f: Aug 06, 2025 Common Visit Codes: [id number] INP/OBS CARE(HIGH), [id number] CARE 30-74 MIN RUBI ASIF MD Aug 06, 2025 22:43
--- NOTE | 2025-08-06 23:50 | DVHPN2 ---
Progress Note - Dictate Date Seen: Aug 06, 2025 Has the PT tested + for MRSA If YES, has PT been informed?: No Medical Necessity Reason Pt with a Central, PICC or Fol: No Subjective Patient was seen and evaluated in follow up in the ICU. Overnight, the patient went into non-sustaining V-Tach on the equipment monitor phototypesetting. Patient was asymptomatic. Patient is on 2 LPM NC. NA 146, K 3.4, CO2 32, BUN 28, GLUC 203. vital signs Vital Sign Date Time Temp Pulse Resp B/P (MAP) Pulse Ox O2 Delivery O2 Flow Rate FiO2 08/06/25 12:00 98.2 70 15 126/57 (80) 94 98.2 08/06/25 12:00 Nasal Cannula* 2 28 Total Intake and Output 08/05/25 08/05/25 08/06/25 15:00 23:00 07:00 Intake Total 1100 ml 1373 ml Output Total 1250 ml 1200 ml Balance -150 ml 173 ml medications Current Medications Medications Dose Ordered Sig/Lizabeth Route Start Time Stop Time Status Last Admin Dose Admin Ondansetron HCl 4 mg Q4HP PRN IV 07/22/25 15:00 Nitroglycerin 0.4 mg Q5MINP PRN SL 07/22/25 15:00 Diagnostic Test (Pha) 1 strip ACHS 07/22/25 17:00 08/06/25 11:31 1 STRIP Insulin Human Regular ACHS SC 07/22/25 17:00 08/06/25 11:35 4 UNITS Dextrose 50 ml UD PRN IV 07/22/25 16:30 Acetaminophen 500 mg Q6HP PRN PO 07/23/25 17:45 07/25/25 01:52 500 MG Docusate Sodium 100 mg BID PO 07/23/25 22:00 08/06/25 10:41 100 MG Memantine 5 mg HS PO 07/23/25 22:00 08/05/25 21:47 5 MG Midazolam HCl 100 ml @ 1 mls/hr Q24H IV 07/24/25 02:45 Cancel Fentanyl Citrate 250 ml @ 2.5 mls/hr Q24H IV 07/24/25 02:45 Cancel Pantoprazole Sodium 40 mg DAILY IV 07/25/25 10:00 08/06/25 10:40 40 MG Norepinephrine Bitartrate 250 ml @ 3.75 mls/hr Q24H IV 07/25/25 10:45 07/31/25 00:47 3.75 MLS/HR Amiodarone HCl 200 mg Q12HR GT 07/25/25 22:00 08/06/25 10:39 200 MG Azithromycin 250 ml @ 125 mls/hr DAILY IV 07/28/25 10:00 Cancel Purified Water 150 ml Q4HR NG 07/30/25 14:00 08/06/25 10:00 150 ML Enteral Nutritional Formula 1,000 ml 60ML/HR GT 07/30/25 16:45 08/04/25 09:31 1,000 ML Hydralazine HCl 10 mg Q6HP PRN IV 07/30/25 16:45 08/02/25 06:40 10 MG Apixaban 2.5 mg BID GT 07/31/25 22:00 08/06/25 10:39 2.5 MG Aspirin 81 mg DAILY GT 08/01/25 10:00 08/06/25 10:39 81 MG Atorvastatin Calcium 40 mg HS GT 07/31/25 22:00 08/05/25 21:47 40 MG Empaglifozin 25 mg DAILY GT 08/01/25 10:00 08/06/25 10:40 25 MG Metoprolol Tartrate 25 mg BID NG 08/02/25 10:00 08/06/25 10:41 25 MG Hydrochlorothiazide 25 mg DAILY NG 08/02/25 10:00 08/06/25 10:40 25 MG Acetylcysteine 200 mg Q8HR IN 08/04/25 22:00 08/06/25 13:27 200 MG Albuterol 2.5 mg Q6HPRN PRN NEB 08/06/25 12:30 Albuterol 2.5 mg Q8H NEB 08/06/25 14:00 08/06/25 13:27 2.5 MG objective GENERAL: Alert and oriented x 3. No acute distress. EYES: PERRL, EOMI. Anicteric. HENT: Moist mucous membranes. LUNGS: Crackles to bilateral breath sounds. CARDIOVASCULAR: Irregular rate and rhythm. ABDOMEN: Soft, non-tender and non-distended. EXTREMITIES: No edema. SKIN: Warm, dry. laboratory and microbiology Laboratory Tests 08/06/25 03:52 Test 12/7/25 03:52 Range/Units Serum Glucose 167 H 74-106 mg/dL Problem List Non ST-elevation myocardial infarction, questionable type 1. Paroxysmal atrial fibrillation/atrial flutter, now NSR (on Eliquis therapy at home). [place] decompensated HFrEF, NYHA Class III. Presence of dual-chamber pacemaker ([employer]). Acute hypoxic respiratory failure. Diabetes mellitus, newly diagnosed. Hypertension. Dyslipidemia. Former smoker/alcoholic. Obesity. Assessment/Plan Continued all current supportive medical care. Amiodarone. Eliquis. Aspirin, Lipitor, Metoprolol. IV antibiotics as ordered. IV Hydralazine for SBP >150. GI prophylactics. Vasopressors for hemodynamic support. Additional plan as per the hospital course. Critical care time of 45 minutes provided to include time spent evaluation of patient at bedside, when appropriate patient/family education for diagnosis, treatment plan, review of pertinent medical information and discussion of care with specialty providers and PCP. Dietary Evaluation Review Comments: Nutrition Recommendation: 1) EN Glucerna 1.2Cal @ 55ml/hr x 24hr (goal) along with Pro-stat 1 pk TID. Water flush 50ml Q6H if allowed, adjust PRN. TF at goal volume along with Pro-stat provide 1884 kcal (100%), 124 gm protein (91%), and 1263 ml free water(including flush). 2) TPN if NPO >7 days 3) Monitor NPO status, lab values, weight trend, and I/O Expected Outcomes/Goals: Intake to meet >75% estimated needs Lab values to improve FU 2-3 days Plan discussed with: Patient ANUPAMA JACOBO MD Aug 06, 2025 13:49
[2025-08-07] VITALS (28 sets, daily range): BP systolic 95–131; BP diastolic 59–86; PULSE 69–80; RESP 12–25; TEMP 97.5–99; O2SAT 89–100
[2025-08-07 03:45] LABS: Hematocrit 48.7 % (41.0-53.0); Hemoglobin 16.4 g/dL (13.5-17.5); Mean Corpuscular Hemoglobin 32.4 pg (28.0-32.0); Mean Corpuscular Volume 96.1 fL (80.0-100.0); Nucleated Red Blood Cells % 0.1 %
[2025-08-07 03:46] LABS: Anion Gap 9 (5-15); Calcium 9.3 mg/dL (8.7-10.4); Chloride 102 mmol/L (98-107); Sodium 143 mmol/L (136-145)
[2025-08-07 03:53] LABS: BUN/Creatinine Ratio 20.0 (10.0-20.0); Blood Urea Nitrogen 17 mg/dL (9-23)
[2025-08-07 03:55] LABS: Magnesium 2.2 mg/dL (1.6-2.6)
[2025-08-07 04:01] LABS: Carbon Dioxide 32 mmol/L (20-31); Glucose 130 mg/dL (74-106); Potassium 3.0 mmol/L (3.5-5.1)
[2025-08-07] MEDS: POTASSIUM CHL 20MEQ/100ML 100 ML IV ONE (06:21)
--- NOTE | 2025-08-07 09:44 | DVHPN2 ---
Subjective Patient denies any symptoms at this time. Reviewed: Care Plan, H&P, Labs, Medications, Previous Orders, Radiology, Other (Consultations) Changes from previous H/P or p: No Changes General: Per HPI Objective Vitals Vital Signs Date Time Temp Pulse Resp B/P (MAP) Pulse Ox O2 Delivery O2 Flow Rate FiO2 08/07/25 08:00 70 16 100 Room Air* 0 21 08/07/25 08:00 97.5 106/62 (77) 97.5 Intake/Output Intake and Output 08/07/25 07:00 Intake Total 1430 ml Output Total 1945 ml Balance -515 ml Intake Oral 1430 ml Tube Feeding 0 ml Output Urine Total 1945 ml # Bowel Movements 2 General Appearance: Alert, Oriented X3, Cooperative HEENT: Atraumatic, PERRLA, Other (Right IJ central line with no signs of bleeding/infection) Lungs: Clear to auscultation, Normal air movement Chest/Breasts: Other (Pacemaker in place) Cardiovascular: Normal S1, Normal S2, Other (V paced) Abdomen: Normal bowel sounds, Soft Genitourinary: Other ([place]'s catheter in place) Musculoskeletal: Weak motor strength RUE, Weak motor strength LUE, Weak motor strength RLE, Weak motor strength LLE Neuro: Cranial nerves 3-12 NL Skin: Dry, Intact Psych/Mental Status: Mental status NL, Mood NL Medications Current Medications Medications Dose Ordered Sig/Lizabeth Route Start Time Stop Time Status Last Admin Dose Admin Ondansetron HCl 4 mg Q4HP PRN IV 07/22/25 15:00 Nitroglycerin 0.4 mg Q5MINP PRN SL 07/22/25 15:00 Diagnostic Test (Pha) 1 strip ACHS 07/22/25 17:00 08/07/25 06:33 1 STRIP Insulin Human Regular ACHS SC 07/22/25 17:00 08/06/25 17:00 2 UNITS Dextrose 50 ml UD PRN IV 07/22/25 16:30 Acetaminophen 500 mg Q6HP PRN PO 07/23/25 17:45 07/25/25 01:52 500 MG Docusate Sodium 100 mg BID PO 07/23/25 22:00 08/06/25 10:41 100 MG Memantine 5 mg HS PO 07/23/25 22:00 08/05/25 21:47 5 MG Midazolam HCl 100 ml @ 1 mls/hr Q24H IV 07/24/25 02:45 Cancel Fentanyl Citrate 250 ml @ 2.5 mls/hr Q24H IV 07/24/25 02:45 Cancel Pantoprazole Sodium 40 mg DAILY IV 07/25/25 10:00 08/06/25 10:40 40 MG Norepinephrine Bitartrate 250 ml @ 3.75 mls/hr Q24H IV 07/25/25 10:45 07/31/25 00:47 3.75 MLS/HR Amiodarone HCl 200 mg Q12HR GT 07/25/25 22:00 08/06/25 10:39 200 MG Azithromycin 250 ml @ 125 mls/hr DAILY IV 07/28/25 10:00 Cancel Purified Water 150 ml Q4HR NG 07/30/25 14:00 08/07/25 06:21 150 ML Enteral Nutritional Formula 1,000 ml 60ML/HR GT 07/30/25 16:45 08/04/25 09:31 1,000 ML Hydralazine HCl 10 mg Q6HP PRN IV 07/30/25 16:45 08/02/25 06:40 10 MG Apixaban 2.5 mg BID GT 07/31/25 22:00 08/06/25 10:39 2.5 MG Aspirin 81 mg DAILY GT 08/01/25 10:00 08/06/25 10:39 81 MG Atorvastatin Calcium 40 mg HS GT 07/31/25 22:00 08/05/25 21:47 40 MG Empaglifozin 25 mg DAILY GT 08/01/25 10:00 08/06/25 10:40 25 MG Metoprolol Tartrate 25 mg BID NG 08/02/25 10:00 08/06/25 10:41 25 MG Hydrochlorothiazide 25 mg DAILY NG 08/02/25 10:00 08/06/25 10:40 25 MG Acetylcysteine 200 mg Q8HR IN 08/04/25 22:00 08/06/25 18:06 200 MG Albuterol 2.5 mg Q6HPRN PRN NEB 08/06/25 12:30 Albuterol 2.5 mg Q8H NEB 08/06/25 14:00 08/06/25 18:06 2.5 MG Laboratory Results Laboratory Tests 08/07/25 03:21 Chemistry Test 08/07/25 03:21 Calcium Level 9.3 mg/dL (8.7-10.4) Magnesium Level 2.2 mg/dL (1.6-2.6) Urinalysis Test 07/22/25 10:51 Urine Color Light-yellow (Yellow) Urine Clarity Clear (Clear) Urine pH 5.5 (5.0-9.0) Urine Specific [place] 1.025 (1.001-1.035) Urine Protein Negative (Negative) Urine Ketones Negative (Negative) Urine Blood 2+ /uL (Negative) H Urine Nitrite Negative (Negative) Urine Bilirubin Negative (Negative) Urine Urobilinogen Normal mg/dL (Negative) Urine Leukocyte Esterase Negative /uL (Negative) Urine RBC 57 /hpf (0 - 3) Urine Microscopic WBC 11 /HPF (0-3) H Urine Squamous Epithelial Cells None seen /hpf (<5) Urine Bacteria None seen /hpf (None Seen) Urine Glucose 4+ mg/dL (Normal) H Microbiology Microbiology Date/Time Source Procedure Growth Status 07/27/25 11:21 Blood Blood Culture - Final NO GROWTH AFTER 5 DAYS OF INCUBATION. Complete 07/24/25 03:35 Urine - [place] Urine Culture - Final Complete 07/24/25 03:26 Trachea Gram Stain - Final Complete 07/24/25 03:26 Trachea Respiratory Culture - Final Complete Labs and/or images reviewed: Labs reviewed by me, Image(s) reviewed by me Assessment/Plan Assessment/Plan Impression: -acute metabolic encephalopathy -acute hypoxic respiratory failure -questionable acute seizure activity with postictal state -acute on chronic diastolic heart failure -atrial flutter with controlled rate -recent placement of dual-chamber pacemaker -? History of ETOH -acute kidney injury, vasomotor nephropathy -obesity -primary hypertension -NSTEMI, probably type 2 -rhabdomyolysis Plan: Events: Patient extubated and on room air. Tolerating no liquid diet. Advanced to pureed. -continue rate control agents with amiodarone and metoprolol tartrate -ID consultation: Recommendations reviewed. -neurology recommendations appreciated. Cardiology consultation: Continue current anticoagulation -potassium replacement -physical therapy -social service consultation for transfer to [facility]. Patient stable to transfer to telemetry floor. -downgrade to telemetry Total time spent with patient discussing and formulating plan of care: 35 minutes. This medical document was created using an electronic medical record system with [employer] dictation system. Although this document has been carefully reviewed, there may still be some phonetic and typographical errors. These areas are purely typographical due to imperfections of the software programs, and do not reflect any compromise in the patient's medical care. Plan discussed with: Patient, Other (RN) My Orders Orders - FLORY OSMAN NP Procedure Category Date Status Time Amiodarone Tablet PHA 08/07/25 Transmitted (Cordarone Tablet) 10:00 Apixaban (Eliquis) PHA 08/07/25 Transmitted 10:00 Aspirin Chewable PHA 08/07/25 Transmitted Tablet 10:00 Atorvastatin (Lipitor) PHA 08/07/25 Transmitted 22:00 Empagliflozin PHA 08/07/25 Transmitted (Jardiance) 10:00 Hydrochlorothiazide PHA 08/07/25 Transmitted Tablet (Hydrochlorot 10:00 Metoprolol Tartrate PHA 08/07/25 Transmitted Tablet (Lopressor Ta 10:00 Transfer Orders XFER 08/07/25 Transmitted 09:35 Cardiac DIET 08/07/25 Transmitted Diet-2gna,Lofat,Lochol Lunch * Hand Tool Lapper CONS 08/07/25 Transmitted Consult Date of Service: Aug 07, 2025 Billing Provider: FLORY OSMAN NP Common Visit Codes: [id number] INP/OBS CARE(HIGH) FLORY OSMAN NP Aug 07, 2025 09:44
[2025-08-07] MEDS: AMIODARONE HCL 200 MG TAB PO SCH (10:32)
[2025-08-07] MEDS: APIXABAN 2.5 MG TAB PO SCH (10:32)
[2025-08-07] MEDS: hydroCHLOROthiazide 25 MG TAB PO SCH (10:33)
[2025-08-07] MEDS: EMPAGLIFLOZIN 10 MG TAB PO SCH (10:33)
[2025-08-07] MEDS: METOPROLOL TARTRATE 25 MG TAB PO SCH (10:34)
--- NOTE | 2025-08-07 10:45 | DVHPN2 ---
Progress Note - Dictate Date Seen: Aug 07, 2025 Has the PT tested + for MRSA If YES, has PT been informed?: No Medical Necessity Reason Pt with a Central, PICC or Fol: No Subjective Mr. Renee is a 80 years old right-handed gentleman with a history of hypertension, diabetes, atrial fibrillation, dementia, obesity, he came to the [facility] on 07/22/2025 with a chief complaint of altered mental status. I have seen and examined the patient in [facility], I have talked to his nurses, and physical therapist, he is alert oriented x 4 (RN: Intermittent confusion), he moves the arms and legs, he needs a large amount of support to stand up from the bed, not able to walk even with a support Pupil size: 08/04/2025, 08/05/25: Rt: 3-4mm, Lt: 3mm, 08/06/2025 Rt: 4mm, Lt: 3-4mm According to ER record, memantine and Eliquis were in his home medication list Urinalysis, 07/22/2025: WBC: 11, urine leukocyte esterase: Negative ABG, 07/26/2025: Combined metabolic and respiratory acidosis Blood culture, 07/22/2025: No growth Blood culture, 07/24/2025: WBC/HB/PLT/MCV, 07/26/2025: 11.9/75/147/97.7 PT/INR/ABG, 07/25/2025: 12.2/1.17/34.7, 07/26/2025: 12.5/1.2/38.4 Na, 07/28/25: 144, 07/29/2025: 147, 07/30/2025: 150, 07/31/2025: 151 08/01/25: 151, 08/04/2025: 154, 08/05/2025: 49, 08/06/2025: 146 BUN/CR, 07/25/2025: 17/1.44 GFR, 07/25/2025: 49, 07/31/2025: 32/0.94 HGB A1c, 07/24/2025: 7.8 TBI/AST/ALT/AP, 07/25/2025: 0.8/45/42/68 TG/HDL/LDL/HDL, 07/24/2025: 100/103/42/47 Vitamin B12, 07/24/25: 1658 TSH, 07/24/2025: 1.34 Chest x-ray, 07/24/2025: Heart is prominent size. There is moderate pulmonary vascular congestion. Dual lead left cardiac device. Enteric tube tip is not well visualized. Endotracheal tube is 4 cm from the de Chest x-ray, 07/26/2025: Lines and tubes in satisfactory position. Increased interstitial prominence. This may represent pulmonary vascular congestion and/or viral pneumonia. Chest x-ray, 07/31/2025: 1. Lines and tubes unchanged. 2. Stable diffuse increased prominence of the pulmonary vasculature CT head, 07/22/2025: No acute intracranial abnormality CT head, 08/01/2025: No evidence of acute intracranial abnormality vital signs Vital Sign Date Time Temp Pulse Resp B/P (MAP) Pulse Ox O2 Delivery O2 Flow Rate FiO2 08/07/25 10:34 75 131/71 08/07/25 08:00 16 100 Room Air* 0 21 08/07/25 08:00 97.5 97.5 Total Intake and Output 08/06/25 08/06/25 08/07/25 15:00 23:00 07:00 Intake Total 720 ml 450 ml 260 ml Output Total 1020 ml 925 ml Balance 720 ml -570 ml -665 ml medications Current Medications Medications Dose Ordered Sig/Lizabeth Route Start Time Stop Time Status Last Admin Dose Admin Ondansetron HCl 4 mg Q4HP PRN IV 07/22/25 15:00 Nitroglycerin 0.4 mg Q5MINP PRN SL 07/22/25 15:00 Diagnostic Test (Pha) 1 strip ACHS 07/22/25 17:00 08/07/25 06:33 1 STRIP Insulin Human Regular ACHS SC 07/22/25 17:00 08/06/25 17:00 2 UNITS Dextrose 50 ml UD PRN IV 07/22/25 16:30 Acetaminophen 500 mg Q6HP PRN PO 07/23/25 17:45 07/25/25 01:52 500 MG Docusate Sodium 100 mg BID PO 07/23/25 22:00 08/07/25 10:32 100 MG Memantine 5 mg HS PO 07/23/25 22:00 08/05/25 21:47 5 MG Midazolam HCl 100 ml @ 1 mls/hr Q24H IV 07/24/25 02:45 Cancel Fentanyl Citrate 250 ml @ 2.5 mls/hr Q24H IV 07/24/25 02:45 Cancel Azithromycin 250 ml @ 125 mls/hr DAILY IV 07/28/25 10:00 Cancel Hydralazine HCl 10 mg Q6HP PRN IV 07/30/25 16:45 08/02/25 06:40 10 MG Acetylcysteine 200 mg Q8HR IN 08/04/25 22:00 08/06/25 18:06 200 MG Albuterol 2.5 mg Q6HPRN PRN NEB 08/06/25 12:30 Albuterol 2.5 mg Q8H NEB 08/06/25 14:00 08/06/25 18:06 2.5 MG Amiodarone HCl 200 mg Q12HR PO 08/07/25 10:00 08/07/25 10:32 200 MG Apixaban 2.5 mg BID PO 08/07/25 10:00 08/07/25 10:32 2.5 MG Aspirin 81 mg DAILY PO 08/07/25 10:00 08/07/25 10:32 81 MG Atorvastatin Calcium 40 mg HS PO 08/07/25 22:00 Empaglifozin 25 mg DAILY PO 08/07/25 10:00 08/07/25 10:33 25 MG Hydrochlorothiazide 25 mg DAILY PO 08/07/25 10:00 08/07/25 10:33 25 MG Metoprolol Tartrate 25 mg BID PO 08/07/25 10:00 08/07/25 10:34 25 MG objective The patient is well-nourished and well-developed with no distress. MENTAL STATUS: Subjective CRANIAL NERVES: Pupils are round and reactive. There are conjugated eye movement, no ptosis, no abnormal vascular dilatation or skin secretion. No signs of facial weakness SENSATION: Responses to light touch in the pinprick MOTOR: Normal tone in the upper and lower extremity. Normal muscle bulk. No fasciculations. Moves the arms and the legs REFLEXES: Deep tendon reflexes are symmetrical. No pathological reflexes. CEREBELLAR/COORDINATION: Deferred GAIT/STATION: deferred laboratory and microbiology Laboratory Tests 08/07/25 03:21 Test 12/8/25 03:21 Range/Units Serum Glucose 130 H 74-106 mg/dL Problem List Coma, resolved Metabolic encephalopathy Toxic encephalopathy Hypoxic encephalopathy Possible community-acquired pneumonia vs a typical viral pneumonia Possible drug fever Rule out intracranial infection Hypernatremia Cognitive dysfunction, MCI versus dementia AFib Coagulopathy secondary to anticoagulation treatment Acute respiratory failure, improving Fever Possible community-acquired pneumonia vs a typical viral pneumonia Possible drug fever Anisocoria, unclear clinical significance Assessment/Plan Monitoring Supportive treatment ICU care Respiratory support Stabilize vitals Oxygen IV antibiotics Aspirin 81 mg daily Eliquis 2.5 mg b.i.d. Physical therapy Infectious disease consultation More recommendation per clinical course This medical document was created using an electronic medical record system with [employer] dictation system. Although this document has been carefully reviewed, there may still be some phonetic and typographical errors. These areas are purely typographical due to imperfections of the software programs, and do not reflect any compromise in the patient's medical care. Dietary Evaluation Review Comments: Nutrition Recommendation: 1) EN Glucerna 1.2Cal @ 55ml/hr x 24hr (goal) along with Pro-stat 1 pk TID. Water flush 50ml Q6H if allowed, adjust PRN. TF at goal volume along with Pro-stat provide 1884 kcal (100%), 124 gm protein (91%), and 1263 ml free water(including flush). 2) TPN if NPO >7 days 3) Monitor NPO status, lab values, weight trend, and I/O Expected Outcomes/Goals: Intake to meet >75% estimated needs Lab values to improve FU 2-3 days Plan discussed with: Other CHRISTOPHER BLACK MD Aug 07, 2025 10:45
--- NOTE | 2025-08-07 18:10 | DVHPN2 ---
Progress Note - Dictate Date Seen: Aug 07, 2025 Has the PT tested + for MRSA If YES, has PT been informed?: No Medical Necessity Reason Pt with a Central, PICC or Fol: No Subjective Patient was seen and evaluated in follow up in the ICU. The patient is now on room air. Patient denies any symptoms at this time. K 3.0, potassium was replaced. vital signs Vital Sign Date Time Temp Pulse Resp B/P (MAP) Pulse Ox O2 Delivery O2 Flow Rate FiO2 08/07/25 16:00 20 94 Room Air* 0 21 08/07/25 16:00 97.8 70 95/69 (78) 97.8 Total Intake and Output 08/06/25 08/06/25 08/07/25 15:00 23:00 07:00 Intake Total 720 ml 450 ml 260 ml Output Total 1020 ml 925 ml Balance 720 ml -570 ml -665 ml medications Current Medications Medications Dose Ordered Sig/Lizabeth Route Start Time Stop Time Status Last Admin Dose Admin Ondansetron HCl 4 mg Q4HP PRN IV 07/22/25 15:00 Nitroglycerin 0.4 mg Q5MINP PRN SL 07/22/25 15:00 Diagnostic Test (Pha) 1 strip ACHS 07/22/25 17:00 08/07/25 11:31 1 STRIP Insulin Human Regular ACHS SC 07/22/25 17:00 08/07/25 11:32 3 UNITS Dextrose 50 ml UD PRN IV 07/22/25 16:30 Acetaminophen 500 mg Q6HP PRN PO 07/23/25 17:45 07/25/25 01:52 500 MG Docusate Sodium 100 mg BID PO 07/23/25 22:00 08/07/25 10:32 100 MG Memantine 5 mg HS PO 07/23/25 22:00 08/05/25 21:47 5 MG Midazolam HCl 100 ml @ 1 mls/hr Q24H IV 07/24/25 02:45 Cancel Fentanyl Citrate 250 ml @ 2.5 mls/hr Q24H IV 07/24/25 02:45 Cancel Azithromycin 250 ml @ 125 mls/hr DAILY IV 07/28/25 10:00 Cancel Hydralazine HCl 10 mg Q6HP PRN IV 07/30/25 16:45 08/02/25 06:40 10 MG Acetylcysteine 200 mg Q8HR IN 08/04/25 22:00 08/07/25 13:52 200 MG Albuterol 2.5 mg Q6HPRN PRN NEB 08/06/25 12:30 Albuterol 2.5 mg Q8H NEB 08/06/25 14:00 08/07/25 13:52 2.5 MG Amiodarone HCl 200 mg Q12HR PO 08/07/25 10:00 08/07/25 10:32 200 MG Apixaban 2.5 mg BID PO 08/07/25 10:00 08/07/25 10:32 2.5 MG Aspirin 81 mg DAILY PO 08/07/25 10:00 08/07/25 10:32 81 MG Atorvastatin Calcium 40 mg HS PO 08/07/25 22:00 Empaglifozin 25 mg DAILY PO 08/07/25 10:00 08/07/25 10:33 25 MG Hydrochlorothiazide 25 mg DAILY PO 08/07/25 10:00 08/07/25 10:33 25 MG Metoprolol Tartrate 25 mg BID PO 08/07/25 10:00 08/07/25 10:34 25 MG objective GENERAL: Alert and oriented x 3. No acute distress. EYES: PERRL, EOMI. Anicteric. HENT: Moist mucous membranes. LUNGS: Crackles to bilateral breath sounds. CARDIOVASCULAR: Irregular rate and rhythm. ABDOMEN: Soft, non-tender and non-distended. EXTREMITIES: No edema. SKIN: Warm, dry. laboratory and microbiology Laboratory Tests 08/07/25 03:21 Test 08/07/25 03:21 Range/Units Serum Glucose 130 H 74-106 mg/dL Problem List Non ST-elevation myocardial infarction, questionable type 1. Paroxysmal atrial fibrillation/atrial flutter, now NSR (on Eliquis therapy at home). [place] decompensated HFrEF, NYHA Class III. Presence of dual-chamber pacemaker ([employer]). Acute hypoxic respiratory failure. Diabetes mellitus, newly diagnosed. Hypertension. Dyslipidemia. Former smoker/alcoholic. Obesity. Assessment/Plan Continued all current supportive medical care. Amiodarone. Eliquis. Aspirin, Lipitor, Metoprolol. IV antibiotics as ordered. IV Hydralazine for SBP >150. GI prophylactics. Vasopressors for hemodynamic support. Additional plan as per the hospital course. Critical care time of 45 minutes provided to include time spent evaluation of patient at bedside, when appropriate patient/family education for diagnosis, treatment plan, review of pertinent medical information and discussion of care with specialty providers and PCP. Dietary Evaluation Review Comments: Nutrition Recommendation: 1) EN Glucerna 1.2Cal @ 55ml/hr x 24hr (goal) along with Pro-stat 1 pk TID. Water flush 50ml Q6H if allowed, adjust PRN. TF at goal volume along with Pro-stat provide 1884 kcal (100%), 124 gm protein (91%), and 1263 ml free water(including flush). 2) TPN if NPO >7 days 3) Monitor NPO status, lab values, weight trend, and I/O Expected Outcomes/Goals: Intake to meet >75% estimated needs Lab values to improve FU 2-3 days Plan discussed with: Patient ANUPAMA JACOBO MD Aug 07, 2025 18:10
[2025-08-07] MEDS: ATORVASTATIN 20 MG TAB PO SCH (22:23)
--- NOTE | 2025-08-07 23:35 | DVHPN2 ---
Consult Progress Note Objective vital signs Vital Sign Date Time Temp Pulse Resp B/P (MAP) Pulse Ox O2 Delivery O2 Flow Rate FiO2 08/07/25 22:41 70 129/86 08/07/25 22:29 98.3 21 90 98.3 08/07/25 22:24 Nasal Cannula* 3 32 Total Intake and Output 08/06/25 08/06/25 08/07/25 15:00 23:00 07:00 Intake Total 720 ml 450 ml 260 ml Output Total 1020 ml 925 ml Balance 720 ml -570 ml -665 ml medications Current Medications Medications Dose Ordered Sig/Lizabeth Route Start Time Stop Time Status Last Admin Dose Admin Ondansetron HCl 4 mg Q4HP PRN IV 07/22/25 15:00 Nitroglycerin 0.4 mg Q5MINP PRN SL 07/22/25 15:00 Diagnostic Test (Pha) 1 strip ACHS 07/22/25 17:00 08/07/25 22:23 1 STRIP Insulin Human Regular ACHS SC 07/22/25 17:00 08/07/25 17:29 3 UNITS Dextrose 50 ml UD PRN IV 07/22/25 16:30 Acetaminophen 500 mg Q6HP PRN PO 07/23/25 17:45 07/25/25 01:52 500 MG Docusate Sodium 100 mg BID PO 07/23/25 22:00 08/07/25 22:22 100 MG Memantine 5 mg HS PO 07/23/25 22:00 08/07/25 22:23 5 MG Midazolam HCl 100 ml @ 1 mls/hr Q24H IV 07/24/25 02:45 Cancel Fentanyl Citrate 250 ml @ 2.5 mls/hr Q24H IV 07/24/25 02:45 Cancel Azithromycin 250 ml @ 125 mls/hr DAILY IV 07/28/25 10:00 Cancel Hydralazine HCl 10 mg Q6HP PRN IV 07/30/25 16:45 08/02/25 06:40 10 MG Acetylcysteine 200 mg Q8HR IN 08/04/25 22:00 08/07/25 22:24 200 MG Albuterol 2.5 mg Q6HPRN PRN NEB 08/06/25 12:30 Albuterol 2.5 mg Q8H NEB 08/06/25 14:00 08/07/25 22:24 2.5 MG Amiodarone HCl 200 mg Q12HR PO 08/07/25 10:00 08/07/25 22:22 200 MG Apixaban 2.5 mg BID PO 08/07/25 10:00 08/07/25 22:22 2.5 MG Aspirin 81 mg DAILY PO 08/07/25 10:00 08/07/25 10:32 81 MG Atorvastatin Calcium 40 mg HS PO 08/07/25 22:00 08/07/25 22:23 40 MG Empaglifozin 25 mg DAILY PO 08/07/25 10:00 08/07/25 10:33 25 MG Hydrochlorothiazide 25 mg DAILY PO 08/07/25 10:00 08/07/25 10:33 25 MG Metoprolol Tartrate 25 mg BID PO 08/07/25 10:00 08/07/25 22:41 25 MG laboratory and microbiology Laboratory Tests 08/07/25 03:21 Test 08/07/25 03:21 Range/Units Serum Glucose 130 H 74-106 mg/dL Problem List/Assessment/Plan Problem List/Assessment/Plan ASSESSMENT AND PLAN: ID Problem List: - acute hypoxic respiratory failure - atypical pneumonia -Altered mental status with decreased level of consciousness -Intermittent fevers during hospitalization (onset ~07/24, peak 102F on 07/25) -Leukocytosis (harry to 11.9 on 07/26) -Atrial fibrillation/atrial flutter; s/p pacemaker placement (06/27, [place]) -Hypertension -Possible community-acquired pneumonia vs atypical/viral pneumonia (no clear focal consolidation on CXR) -Possible drug fever (ceftriaxone; consider other recent medications) -Elevated troponin (657 on 07/24) and bundle branch block on EKG -Cardiomegaly with pulmonary vascular congestion on chest imaging -Intubated 07/23; on fentanyl infusion; on vasopressor support (norepinephrine) -Aortic systolic ejection murmur -Left shoulder blister, scabbed -Obesity (BMI 35.6) -Former alcohol use disorder; former smoker Assessment This is a male with a history of atrial fibrillation/atrial flutter, hypertension, former heavy alcohol use (currently abstinent), former smoker, and pacemaker placement on 06/27 who presented with decreased level of consciousness after several days of pacemaker-detected arrhythmias. Admission vitals were stable without initial fever; he subsequently developed fevers beginning ~07/24 peaking at 102F on 07/25, then trending down. He was intubated on 07/23, now on minimal ventilator support; he remains on norepinephrine (14 mcg) with improving blood pressures over 2448 hours. Cultures (blood, urine) have been negative to date; tracheal/respiratory culture shows normal oropharyngeal chely. Chest imaging demonstrates cardiomegaly and moderate pulmonary vascular congestion without a clear focal pneumonia. EKG shows a bundle branch block and troponin harry to 657 on 07/24. Leukocytosis increased to 11.9 on 07/26. UA shows mild pyuria (11 WBC), negative LE/nitrites, no bacteria, and 4+ glucosuria; urine cultures negative. Head CT shows no acute intracranial process; renal ultrasound without hydronephrosis. Differential for fevers and leukocytosis includes atypical/viral pneumonia, drug fever (ceftriaxone; also consider recent furosemide, increased statin dose, amiodarone), venous thromboembolism with possible inflammatory fever, aspiration pneumonitis, and noninfectious ischemic hepatopathy in the context of critical illness and elevated troponin. 07/28: fever curve improving but still febrile, doppler US negative for DVT, HIV negative 07/29: off pressors, hypoxia improving on minimal vent 07/30: no new fevers 07/31: requiring antipyretic, cooling blanket 08/01: worsening hypernatremia, no true fevers but recurrent elevated temps 08/02: doxycycline stopped, switched to levofloxacin for elevated temps 08/04: extubated to 2LNC, no ongoing sign of infection Plan: -Antimicrobials: - stop levofloxacin, will monitor clinically off all antibiotics -Diagnostics: - check legionella ag and mycoplasma ab--> negative -Fever/Leukocytosis: -Monitor fever curve; note that resolution may take several days if drug fever- related. -Continue to monitor WBC trend and clinical status. -Respiratory: -Continue ventilatory weaning as tolerated; monitor for signs of aspiration or evolving pneumonia. -Repeat chest imaging as clinically indicated. -Cardiovascular: -Continue amiodarone per cardiology. -Trend troponins. -Maintain adequate perfusion; coordinate with cardiology regarding vasopressor/inotrope strategy (cardioselective agents as appropriate). -Renal/Volume: -Monitor urine output (reported ~1,300 cc/day); continue diuresis with furosemide as clinically indicated. -Supportive care: -Antipyretics as needed (acetaminophen given once on 07/24). -Continue ICU-level monitoring and supportive measures. -Infection prevention: -No evidence for catheter- or skin-source infection on current exam; continue routine line care and skin assessments. Authorized and Performed by: ruddy varela Total critical care time: Approximately 66 minutes Due to a high probability of clinically significant, life threatening deterioration, the patient required my highest level of preparedness to intervene emergently and I personally spent this critical care time directly and personally managing the patient. This critical care time included obtaining a history; examining the patient; pulse oximetry; ordering and review of studies; arranging urgent treatment with development of a management plan; evaluation of patient's response to treatment; frequent reassessment; and, discussions with other providers. This critical care time was performed to assess and manage the high probability of imminent, life-threatening deterioration that could result in multi-organ failure. It was exclusive of separately billable procedures and treating other patients and teaching time. Isolation Precautions: standard \*Assessment and plan was discussed with the care team as written above. \*Plan is subject to change pending incorporation of new incoming information/diagnostics. Updates may be added as addendum at the bottom (OR TOP) of this note. Thank you for the consult. Infectious Diseases will continue to follow. Please contact Infectious Disease for any questions or concerns. ++++++++++++++++++++++++++++++++++++++++++++++++++++++++++++++++++++++++ Physical Exam: General: NAD Neck: Supple. No masses. HEENT: PERRL. Normal lids and conjunctiva. Moist mucous membranes. Oropharynx without lesions, exudates or excessive erythema. Normal appearance of the external aspects of the nose and ears. Heart: Regular rhythm, normal rate. Aortic systolic ejection murmur present. No lower extremity edema noted. Lungs: Normal respiratory effort. Clear to auscultation bilaterally. No wheezes. No crackles. Abdomen: Soft. Non-tender. Non-distended. Normal bowel sounds. No masses or abdominal hernia. Msk: No digital cyanosis. Normal tone in all 4 limbs. Skin: Warm and dry, no rashes. Left shoulder blister with scab. Neuro: Lethargic but oriented to person, place, and time when arousable. No facial droop or slurred speech. Extra-ocular movements intact. Sensation intact to soft touch in all 4 limbs. Decreased strength in upper and lower extremities. Psych: Appropriate mood. Full affect when interactive. Oriented to person, place, time, and situation when arousable. Dietary Evaluation Review Comments: Nutrition Recommendation: 1) EN Glucerna 1.2Cal @ 55ml/hr x 24hr (goal) along with Pro-stat 1 pk TID. Water flush 50ml Q6H if allowed, adjust PRN. TF at goal volume along with Pro-stat provide 1884 kcal (100%), 124 gm protein (91%), and 1263 ml free water(including flush). 2) TPN if NPO >7 days 3) Monitor NPO status, lab values, weight trend, and I/O Expected Outcomes/Goals: Intake to meet >75% estimated needs Lab values to improve FU 2-3 days RUDDY VARELA MD Aug 07, 2025 23:35
--- NOTE | 2025-08-07 23:48 | DVHPN2 ---
Subjective DOS: 08/07/2025 Patient seen and examined at bedside. Currently on room air Overnight events reviewed. Reviewed: Care Plan, H&P, Labs, Medications, Previous Orders, Radiology, Other (Consultations) Changes from previous H/P or p: No Changes General: Per HPI Objective Vitals Vital Signs Date Time Temp Pulse Resp B/P (MAP) Pulse Ox O2 Delivery O2 Flow Rate FiO2 08/07/25 22:41 70 129/86 08/07/25 22:29 98.3 21 90 98.3 08/07/25 22:24 Nasal Cannula* 3 32 Intake/Output Intake and Output 08/07/25 07:00 Intake Total 1430 ml Output Total 1945 ml Balance -515 ml Intake Oral 1430 ml Tube Feeding 0 ml Output Urine Total 1945 ml # Bowel Movements 2 Exam Gen.: Patient lying in bed in no apparent distress. On room air. Head: Normocephalic, atraumatic. Eyes: EOMI/PERRLA. Ears: Normal hearing. Normal anatomy. Neck/trachea: Trachea midline, supple. Nose: Normal external anatomy. Mouth: Moist mucous membranes. Chest: Decreased air entry bilaterally. No wheezing or rhonchi. Cardiovascular: Positive S1, positive S2. Regular rate and rhythm. Abdomen: Positive bowel sounds in all 4 quadrants. Soft, non-tender, non- distended. : Deferred. Rectal: Deferred. Skin: Warm, dry. Intact. Extremities: 2+ radial pulses bilaterally. No lower extremity edema. Neuro: Awake, alert. No gross motor or sensory deficits. Cranial nerves II through XII intact. Gait not assessed. General Appearance: Alert, Oriented X3, Cooperative HEENT: Atraumatic, PERRLA, Other (Right IJ central line with no signs of bleeding/infection) Lungs: Clear to auscultation, Normal air movement Chest/Breasts: Other (Pacemaker in place) Cardiovascular: Normal S1, Normal S2, Other (V paced) Abdomen: Normal bowel sounds, Soft Genitourinary: Other ([place]'s catheter in place) Musculoskeletal: Weak motor strength RUE, Weak motor strength LUE, Weak motor strength RLE, Weak motor strength LLE Neuro: Cranial nerves 3-12 NL Skin: Dry, Intact Psych/Mental Status: Mental status NL, Mood NL Medications Current Medications Medications Dose Ordered Sig/Lizabeth Route Start Time Stop Time Status Last Admin Dose Admin Ondansetron HCl 4 mg Q4HP PRN IV 07/22/25 15:00 Nitroglycerin 0.4 mg Q5MINP PRN SL 07/22/25 15:00 Diagnostic Test (Pha) 1 strip ACHS 07/22/25 17:00 08/07/25 22:23 1 STRIP Insulin Human Regular ACHS SC 07/22/25 17:00 08/07/25 17:29 3 UNITS Dextrose 50 ml UD PRN IV 07/22/25 16:30 Acetaminophen 500 mg Q6HP PRN PO 07/23/25 17:45 07/25/25 01:52 500 MG Docusate Sodium 100 mg BID PO 07/23/25 22:00 08/07/25 22:22 100 MG Memantine 5 mg HS PO 07/23/25 22:00 08/07/25 22:23 5 MG Midazolam HCl 100 ml @ 1 mls/hr Q24H IV 07/24/25 02:45 Cancel Fentanyl Citrate 250 ml @ 2.5 mls/hr Q24H IV 07/24/25 02:45 Cancel Azithromycin 250 ml @ 125 mls/hr DAILY IV 07/28/25 10:00 Cancel Hydralazine HCl 10 mg Q6HP PRN IV 07/30/25 16:45 08/02/25 06:40 10 MG Acetylcysteine 200 mg Q8HR IN 08/04/25 22:00 08/07/25 22:24 200 MG Albuterol 2.5 mg Q6HPRN PRN NEB 08/06/25 12:30 Albuterol 2.5 mg Q8H NEB 08/06/25 14:00 08/07/25 22:24 2.5 MG Amiodarone HCl 200 mg Q12HR PO 08/07/25 10:00 08/07/25 22:22 200 MG Apixaban 2.5 mg BID PO 08/07/25 10:00 08/07/25 22:22 2.5 MG Aspirin 81 mg DAILY PO 08/07/25 10:00 08/07/25 10:32 81 MG Atorvastatin Calcium 40 mg HS PO 08/07/25 22:00 08/07/25 22:23 40 MG Empaglifozin 25 mg DAILY PO 08/07/25 10:00 08/07/25 10:33 25 MG Hydrochlorothiazide 25 mg DAILY PO 08/07/25 10:00 08/07/25 10:33 25 MG Metoprolol Tartrate 25 mg BID PO 08/07/25 10:00 08/07/25 22:41 25 MG Laboratory Results Laboratory Tests 08/07/25 03:21 Chemistry Test 08/07/25 03:21 Calcium Level 9.3 mg/dL (8.7-10.4) Magnesium Level 2.2 mg/dL (1.6-2.6) Urinalysis Test 07/22/25 10:51 Urine Color Light-yellow (Yellow) Urine Clarity Clear (Clear) Urine pH 5.5 (5.0-9.0) Urine Specific [place] 1.025 (1.001-1.035) Urine Protein Negative (Negative) Urine Ketones Negative (Negative) Urine Blood 2+ /uL (Negative) H Urine Nitrite Negative (Negative) Urine Bilirubin Negative (Negative) Urine Urobilinogen Normal mg/dL (Negative) Urine Leukocyte Esterase Negative /uL (Negative) Urine RBC 57 /hpf (0 - 3) Urine Microscopic WBC 11 /HPF (0-3) H Urine Squamous Epithelial Cells None seen /hpf (<5) Urine Bacteria None seen /hpf (None Seen) Urine Glucose 4+ mg/dL (Normal) H Microbiology Microbiology Date/Time Source Procedure Growth Status 07/27/25 11:21 Blood Blood Culture - Final NO GROWTH AFTER 5 DAYS OF INCUBATION. Complete 07/24/25 03:35 Urine - [place] Urine Culture - Final Complete 07/24/25 03:26 Trachea Gram Stain - Final Complete 07/24/25 03:26 Trachea Respiratory Culture - Final Complete Assessment/Plan Assessment/Plan Impression: Acute hypoxic respiratory failure Dependence on supplemental oxygen S/p cardiac arrest Pulmonary congestion Congestive heart failure Obesity Events: Improved O2 requirements On room air No distress Pt has dyspnea on exertion Improving mentation Central line removed. Midline in place. Remains off pressors, hemodynamically stable. Aspiration risk. Head of bed elevation Aspiration precautions Continue bronchodilators/Mucomyst Chest physiotherapy Continue antibiotics Incentive spirometry Amiodarone PO/Eliquis/metoprolol for AFib Accu-Cheks, ISS. Protonix for GI ppx Patient is receiving free water. Monitor sodium Tube feeds via NGT for nutritional support PT evaluation, max assist. Chest x-ray reviewed, moderate pulmonary vascular congestion. Patient is stable for downgrade from the pulmonary standpoint. Labs and imaging reviewed. Rest of plan as noted below. Plan: S/p extubation on 08/03/25 Supplemental oxygen PRN Titrate to keep O2 sats above 92%. Head of bed elevation Aspiration precautions Continue bronchodilators Continue antibiotics Incentive spirometry Accu-Cheks, ISS Tube feeds for nutritional support Monitor renal function. Monitor electrolytes. Supplement as necessary. Monitor ins and outs. Recommend diet and lifestyle modifications for weight reduction Obesity complicates all care DVT prophylaxis. Prognosis: Guarded given patient's multiple co-morbidities. Condition: Critical Rest of plan per hospitalist and other consultants. A total of 35 minutes of critical care time was spent reviewing the patient record, examining the patient, making a diagnostic and therapeutic plan, discussing this plan with the medical personnel, following up on diagnostic studies and following the patient for clinical stability excluding any and all procedures. At least 50% of this time was spent in direct, [id number] contact. Thank you, HERMINIA Sweeney, for allowing me to participate in this patient's care. Further recommendations will depend on the patient's clinical course. Please do not hesitate to contact me if you have any questions or concerns. This medical document was created using an electronic medical record system with [employer] computerized dictation system. Although these documentations are being carefully reviewed, there may still be some phonetic and typographical changes. The errors are purely typographical, due to imperfection on the software program, and do not reflect any compromise in the patient's medical care. Plan discussed with: Patient, Other (RN) Visit Coding Pulmonary Billing Provider: RUBI ASIF MD Date of Service if different f: Aug 07, 2025 Common Visit Codes: [id number] INP/OBS CARE(HIGH) RUBI ASIF MD Aug 07, 2025 23:48
[2025-08-08] VITALS (15 sets, daily range): BP systolic 102–117; BP diastolic 61–82; PULSE 67–77; RESP 16–19; TEMP 97.4–99.1; O2SAT 90–100
--- NOTE | 2025-08-08 09:44 | DVHPN2 ---
Subjective Patient denies any symptoms at this time. Reviewed: Care Plan, H&P, Labs, Medications, Previous Orders, Radiology, Other (Consultations) Changes from previous H/P or p: No Changes General: Per HPI Objective Vitals Vital Signs Date Time Temp Pulse Resp B/P (MAP) Pulse Ox O2 Delivery O2 Flow Rate FiO2 08/08/25 05:00 98.0 75 18 102/61 (75) 93 98.0 08/07/25 22:30 3.0 32 08/07/25 22:24 Nasal Cannula* Intake/Output Intake and Output 08/08/25 07:00 Intake Total 1420 ml Output Total 1750 ml Balance -330 ml Intake Oral 1320 ml IV Total 100 ml Output Urine Total 1750 ml # Bowel Movements 3 General Appearance: Alert, Oriented X3, Cooperative HEENT: Atraumatic, PERRLA, Other (Right IJ central line with no signs of bleeding/infection) Lungs: Clear to auscultation, Normal air movement Chest/Breasts: Other (Pacemaker in place) Cardiovascular: Normal S1, Normal S2, Other (V paced) Abdomen: Normal bowel sounds, Soft Genitourinary: No Apparent Abnormalities ([place] catheter) Musculoskeletal: Weak motor strength RUE, Weak motor strength LUE, Weak motor strength RLE, Weak motor strength LLE Neuro: Cranial nerves 3-12 NL Skin: Dry, Intact Psych/Mental Status: Mental status NL, Mood NL Medications Current Medications Medications Dose Ordered Sig/Lizabeth Route Start Time Stop Time Status Last Admin Dose Admin Ondansetron HCl 4 mg Q4HP PRN IV 07/22/25 15:00 Nitroglycerin 0.4 mg Q5MINP PRN SL 07/22/25 15:00 Diagnostic Test (Pha) 1 strip ACHS 07/22/25 17:00 08/08/25 06:03 1 STRIP Insulin Human Regular ACHS SC 07/22/25 17:00 08/08/25 06:03 3 UNITS Dextrose 50 ml UD PRN IV 07/22/25 16:30 Acetaminophen 500 mg Q6HP PRN PO 07/23/25 17:45 07/25/25 01:52 500 MG Docusate Sodium 100 mg BID PO 07/23/25 22:00 08/07/25 22:22 100 MG Memantine 5 mg HS PO 07/23/25 22:00 08/07/25 22:23 5 MG Midazolam HCl 100 ml @ 1 mls/hr Q24H IV 07/24/25 02:45 Cancel Fentanyl Citrate 250 ml @ 2.5 mls/hr Q24H IV 07/24/25 02:45 Cancel Azithromycin 250 ml @ 125 mls/hr DAILY IV 07/28/25 10:00 Cancel Hydralazine HCl 10 mg Q6HP PRN IV 07/30/25 16:45 08/02/25 06:40 10 MG Acetylcysteine 200 mg Q8HR IN 08/04/25 22:00 08/07/25 22:24 200 MG Albuterol 2.5 mg Q6HPRN PRN NEB 08/06/25 12:30 Albuterol 2.5 mg Q8H NEB 08/06/25 14:00 08/07/25 22:24 2.5 MG Amiodarone HCl 200 mg Q12HR PO 08/07/25 10:00 08/07/25 22:22 200 MG Apixaban 2.5 mg BID PO 08/07/25 10:00 08/07/25 22:22 2.5 MG Aspirin 81 mg DAILY PO 08/07/25 10:00 08/07/25 10:32 81 MG Atorvastatin Calcium 40 mg HS PO 08/07/25 22:00 08/07/25 22:23 40 MG Empaglifozin 25 mg DAILY PO 08/07/25 10:00 08/07/25 10:33 25 MG Hydrochlorothiazide 25 mg DAILY PO 08/07/25 10:00 08/07/25 10:33 25 MG Metoprolol Tartrate 25 mg BID PO 08/07/25 10:00 08/07/25 22:41 25 MG Laboratory Results Laboratory Tests 08/07/25 03:21 Urinalysis Test 07/22/25 10:51 Urine Color Light-yellow (Yellow) Urine Clarity Clear (Clear) Urine pH 5.5 (5.0-9.0) Urine Specific [place] 1.025 (1.001-1.035) Urine Protein Negative (Negative) Urine Ketones Negative (Negative) Urine Blood 2+ /uL (Negative) H Urine Nitrite Negative (Negative) Urine Bilirubin Negative (Negative) Urine Urobilinogen Normal mg/dL (Negative) Urine Leukocyte Esterase Negative /uL (Negative) Urine RBC 57 /hpf (0 - 3) Urine Microscopic WBC 11 /HPF (0-3) H Urine Squamous Epithelial Cells None seen /hpf (<5) Urine Bacteria None seen /hpf (None Seen) Urine Glucose 4+ mg/dL (Normal) H Microbiology Microbiology Date/Time Source Procedure Growth Status 07/27/25 11:21 Blood Blood Culture - Final NO GROWTH AFTER 5 DAYS OF INCUBATION. Complete 07/24/25 03:35 Urine - [place] Urine Culture - Final Complete 07/24/25 03:26 Trachea Gram Stain - Final Complete 07/24/25 03:26 Trachea Respiratory Culture - Final Complete Labs and/or images reviewed: Labs reviewed by me, Image(s) reviewed by me Assessment/Plan Assessment/Plan Impression: -acute metabolic encephalopathy -acute hypoxic respiratory failure -questionable acute seizure activity with postictal state -acute on chronic diastolic heart failure -atrial flutter with controlled rate -recent placement of dual-chamber pacemaker -? History of ETOH -acute kidney injury, vasomotor nephropathy -obesity -primary hypertension -NSTEMI, probably type 2 -rhabdomyolysis Plan: Events: Patient continues to be on room air. Tolerating diet. Blood pressure marginal. -continue amiodarone and metoprolol tartrate. -began implementing guideline directed medical therapy with THADDEUS inhibitor. Hold spironolactone at this time -potassium replacement -physical therapy -social service consultation for transfer to [facility]. Patient stable to transfer to telemetry floor. -repeat labs, chest x-ray Total time spent with patient discussing and formulating plan of care: 35 minutes. This medical document was created using an electronic medical record system with [employer] dictation system. Although this document has been carefully reviewed, there may still be some phonetic and typographical errors. These areas are purely typographical due to imperfections of the software programs, and do not reflect any compromise in the patient's medical care. Plan discussed with: Patient, Other (RN) My Orders Orders - FLORY OSMAN NP Procedure Category Date Status Time Basic Metabolic Panel LAB 08/08/25 Logged 09:31 Chest Xray 1 View XY 08/08/25 Logged 09:31 Lisinopril Tablet PHA 08/08/25 Verified (Zestril Tablet) 10:00 Date of Service: Aug 08, 2025 Billing Provider: SALBINO,RUTH [employer] Common Visit Codes: [id number] INP/OBS CARE(HIGH) FLORY OSMAN [employer] Aug 08, 2025 09:44
[2025-08-08] MEDS: LISINOPRIL 5 MG TAB PO SCH (10:09)
[2025-08-08 12:08] LABS: Chloride 98 mmol/L (98-107); Sodium 138 mmol/L (136-145)
[2025-08-08 12:09] LABS: Anion Gap 10 (5-15); Carbon Dioxide 30 mmol/L (20-31)
[2025-08-08 12:10] LABS: Calcium 9.6 mg/dL (8.7-10.4)
[2025-08-08 12:13] LABS: Potassium 3.0 mmol/L (3.5-5.1)
[2025-08-08 12:15] LABS: BUN/Creatinine Ratio 14.8 (10.0-20.0); Blood Urea Nitrogen 16 mg/dL (9-23); Glucose 161 mg/dL (74-106)
--- NOTE | 2025-08-08 12:16 | DVH ---
CHEST RADIOGRAPH INDICATION: chf TECHNIQUE: Single frontal view of the chest was obtained COMPARISON: XY CHEST XRAY 1 VIEW on DOS: 08/05/25, XY CHEST PORTABLE on DOS: 08/04/25, XY CHEST PORTABLE on DOS: 08/03/25, XY CHEST PORTABLE on DOS: 08/03/25, XY CHEST XRAY 1 VIEW on DOS: 08/02/25, XY CHEST XRAY 1 VIEW on DOS: 08/05/25 FINDINGS: Lines and Tubes: Unchanged. Lungs: Stable appearing moderate diffuse increased prominence of the pulmonary vasculature without evidence of focal consolidation. Pleura: No effusion. No pneumothorax. Cardiomediastinal contours: Unremarkable Bones: Unremarkable IMPRESSION: 1. Stable appearing moderate pulmonary vascular congestion. 2. Lines and tubes unchanged.
[2025-08-08 16:54] LABS: Urine Protein, UAD Negative (Negative)
--- NOTE | 2025-08-08 21:34 | DVHPN2 ---
Progress Note - Dictate Date Seen: Aug 08, 2025 Has the PT tested + for MRSA If YES, has PT been informed?: No Medical Necessity Reason Pt with a Central, PICC or Fol: No Subjective Patient was seen and evaluated in follow up. Patient has been downgraded to telemetry. Patient passed swallow eval. K 3, patient's potassium was replaced. Chest x-ray shows stable appearing moderate pulmonary vascular congestion. Telemetry reviewed vital signs Vital Sign Date Time Temp Pulse Resp B/P (MAP) Pulse Ox O2 Delivery O2 Flow Rate FiO2 08/08/25 14:17 93 Room Air 0.0 08/08/25 14:14 73 16 08/08/25 11:55 116/86 08/08/25 05:00 98.0 98.0 08/07/25 22:30 32 Total Intake and Output 08/07/25 08/07/25 08/08/25 15:00 23:00 07:00 Intake Total 820 ml 420 ml 180 ml Output Total 850 ml 900 ml Balance 820 ml -430 ml -720 ml medications Current Medications Medications Dose Ordered Sig/Lizabeth Route Start Time Stop Time Status Last Admin Dose Admin Ondansetron HCl 4 mg Q4HP PRN IV 07/22/25 15:00 Nitroglycerin 0.4 mg Q5MINP PRN SL 07/22/25 15:00 Diagnostic Test (Pha) 1 strip ACHS 07/22/25 17:00 08/08/25 11:56 1 STRIP Insulin Human Regular ACHS SC 07/22/25 17:00 08/08/25 11:30 3 UNITS Dextrose 50 ml UD PRN IV 07/22/25 16:30 Acetaminophen 500 mg Q6HP PRN PO 07/23/25 17:45 07/25/25 01:52 500 MG Docusate Sodium 100 mg BID PO 07/23/25 22:00 08/08/25 10:08 100 MG Memantine 5 mg HS PO 07/23/25 22:00 08/07/25 22:23 5 MG Midazolam HCl 100 ml @ 1 mls/hr Q24H IV 07/24/25 02:45 Cancel Fentanyl Citrate 250 ml @ 2.5 mls/hr Q24H IV 07/24/25 02:45 Cancel Azithromycin 250 ml @ 125 mls/hr DAILY IV 07/28/25 10:00 Cancel Hydralazine HCl 10 mg Q6HP PRN IV 07/30/25 16:45 08/02/25 06:40 10 MG Acetylcysteine 200 mg Q8HR IN 08/04/25 22:00 08/08/25 14:14 200 MG Albuterol 2.5 mg Q6HPRN PRN NEB 08/06/25 12:30 Albuterol 2.5 mg Q8H NEB 08/06/25 14:00 08/08/25 14:14 2.5 MG Amiodarone HCl 200 mg Q12HR PO 08/07/25 10:00 08/08/25 10:08 200 MG Apixaban 2.5 mg BID PO 08/07/25 10:00 08/08/25 10:08 2.5 MG Aspirin 81 mg DAILY PO 08/07/25 10:00 08/08/25 10:08 81 MG Atorvastatin Calcium 40 mg HS PO 08/07/25 22:00 08/07/25 22:23 40 MG Empaglifozin 25 mg DAILY PO 08/07/25 10:00 08/08/25 10:08 25 MG Hydrochlorothiazide 25 mg DAILY PO 08/07/25 10:00 08/08/25 10:09 25 MG Metoprolol Tartrate 25 mg BID PO 08/07/25 10:00 08/08/25 10:09 25 MG Lisinopril 2.5 mg DAILY PO 08/08/25 10:00 08/08/25 10:09 2.5 MG objective GENERAL: Alert and oriented x 3. No acute distress. EYES: PERRL, EOMI. Anicteric. HENT: Moist mucous membranes. LUNGS: Crackles to bilateral breath sounds. CARDIOVASCULAR: Irregular rate and rhythm. ABDOMEN: Soft, non-tender and non-distended. EXTREMITIES: No edema. SKIN: Warm, dry. laboratory and microbiology Laboratory Tests 08/08/25 11:24 08/07/25 03:21 Test 08/08/25 11:24 Range/Units Serum Glucose 161 H 74-106 mg/dL Problem List Non ST-elevation myocardial infarction, questionable type 1. Paroxysmal atrial fibrillation/atrial flutter, now NSR (on Eliquis therapy at home). [place] decompensated HFrEF, NYHA Class III. Presence of dual-chamber pacemaker ([employer]). Acute hypoxic respiratory failure. Diabetes mellitus, newly diagnosed. Hypertension. Dyslipidemia. Former smoker/alcoholic. Obesity. Assessment/Plan Continued all current supportive medical care. Amiodarone. Eliquis. Aspirin, Lipitor, Metoprolol. IV antibiotics as ordered. IV Hydralazine for SBP >150. GI prophylactics. Additional plan as per the hospital course. Dietary Evaluation Review Comments: Nutrition Recommendation: 1) EN Glucerna 1.2Cal @ 55ml/hr x 24hr (goal) along with Pro-stat 1 pk TID. Water flush 50ml Q6H if allowed, adjust PRN. TF at goal volume along with Pro-stat provide 1884 kcal (100%), 124 gm protein (91%), and 1263 ml free water(including flush). 2) TPN if NPO >7 days 3) Monitor NPO status, lab values, weight trend, and I/O Expected Outcomes/Goals: Intake to meet >75% estimated needs Lab values to improve FU 2-3 days Plan discussed with: Patient ANUPAMA JACOBO MD Aug 08, 2025 14:22
--- NOTE | 2025-08-08 23:16 | DVHPN2 ---
Progress Note - Dictate Date Seen: Aug 08, 2025 Has the PT tested + for MRSA If YES, has PT been informed?: No Medical Necessity Reason Pt with a Central, PICC or Fol: No Subjective Mr. Renee is a 80 years old right-handed gentleman with a history of hypertension, diabetes, atrial fibrillation, dementia, obesity, he came to the [facility] on 07/22/2025 with a chief complaint of altered mental status. I have seen and examined the patient in she, I have talked to his nurses sitter, and physical therapist, he is very sleepy, but is oriented x 3. Sitter and nurse reported intermittent confusion Pupil size: 08/04/2025, 08/05/25: Rt: 3-4mm, Lt: 3mm, 08/06/2025 Rt: 4mm, Lt: 3-4mm, 08/06/2025 Rt: 4mm, Lt: 3-4mm According to ER record, memantine and Eliquis were in his home medication list Urinalysis, 07/22/2025: WBC: 11, urine leukocyte esterase: Negative ABG, 07/26/2025: Combined metabolic and respiratory acidosis Blood culture, 07/22/2025: No growth Blood culture, 07/24/2025: WBC/HB/PLT/MCV, 07/26/2025: 11.9/75/147/97.7 PT/INR/ABG, 07/25/2025: 12.2/1.17/34.7, 07/26/2025: 12.5/1.2/38.4 Na, 07/28/25: 144, 07/29/2025: 147, 07/30/2025: 150, 07/31/2025: 151 08/01/25: 151, 08/04/2025: 154, 08/05/2025: 49, 08/06/2025: 146 BUN/CR, 07/25/2025: 17/1.44 GFR, 07/25/2025: 49, 07/31/2025: 32/0.94 HGB A1c, 07/24/2025: 7.8 TBI/AST/ALT/AP, 07/25/2025: 0.8/45/42/68 TG/HDL/LDL/HDL, 07/24/2025: 100/103/42/47 Vitamin B12, 07/24/25: 1658 TSH, 07/24/2025: 1.34 Chest x-ray, 07/24/2025: Heart is prominent size. There is moderate pulmonary vascular congestion. Dual lead left cardiac device. Enteric tube tip is not well visualized. Endotracheal tube is 4 cm from the de Chest x-ray, 07/26/2025: Lines and tubes in satisfactory position. Increased interstitial prominence. This may represent pulmonary vascular congestion and/or viral pneumonia. Chest x-ray, 07/31/2025: 1. Lines and tubes unchanged. 2. Stable diffuse increased prominence of the pulmonary vasculature CT head, 07/22/2025: No acute intracranial abnormality CT head, 08/01/2025: No evidence of acute intracranial abnormality vital signs Vital Sign Date Time Temp Pulse Resp B/P (MAP) Pulse Ox O2 Delivery O2 Flow Rate FiO2 08/08/25 21:20 72 114/68 08/08/25 21:00 97.8 19 90 97.8 08/08/25 20:00 Room Air* 0 21 Total Intake and Output 08/07/25 08/07/25 08/08/25 15:00 23:00 07:00 Intake Total 820 ml 420 ml 180 ml Output Total 850 ml 900 ml Balance 820 ml -430 ml -720 ml medications Current Medications Medications Dose Ordered Sig/Lizabeth Route Start Time Stop Time Status Last Admin Dose Admin Ondansetron HCl 4 mg Q4HP PRN IV 07/22/25 15:00 Nitroglycerin 0.4 mg Q5MINP PRN SL 07/22/25 15:00 Diagnostic Test (Pha) 1 strip ACHS 07/22/25 17:00 08/08/25 21:21 1 STRIP Insulin Human Regular ACHS SC 07/22/25 17:00 08/08/25 21:25 3 UNITS Dextrose 50 ml UD PRN IV 07/22/25 16:30 Acetaminophen 500 mg Q6HP PRN PO 07/23/25 17:45 07/25/25 01:52 500 MG Docusate Sodium 100 mg BID PO 07/23/25 22:00 08/08/25 21:21 100 MG Memantine 5 mg HS PO 07/23/25 22:00 08/08/25 21:20 5 MG Midazolam HCl 100 ml @ 1 mls/hr Q24H IV 07/24/25 02:45 Cancel Fentanyl Citrate 250 ml @ 2.5 mls/hr Q24H IV 07/24/25 02:45 Cancel Azithromycin 250 ml @ 125 mls/hr DAILY IV 07/28/25 10:00 Cancel Hydralazine HCl 10 mg Q6HP PRN IV 07/30/25 16:45 08/02/25 06:40 10 MG Acetylcysteine 200 mg Q8HR IN 08/04/25 22:00 08/08/25 18:42 200 MG Albuterol 2.5 mg Q6HPRN PRN NEB 08/06/25 12:30 Albuterol 2.5 mg Q8H NEB 08/06/25 14:00 08/08/25 18:42 2.5 MG Amiodarone HCl 200 mg Q12HR PO 08/07/25 10:00 08/08/25 21:21 200 MG Apixaban 2.5 mg BID PO 08/07/25 10:00 08/08/25 21:20 2.5 MG Aspirin 81 mg DAILY PO 08/07/25 10:00 08/08/25 10:08 81 MG Atorvastatin Calcium 40 mg HS PO 08/07/25 22:00 08/08/25 21:20 40 MG Empaglifozin 25 mg DAILY PO 08/07/25 10:00 08/08/25 10:08 25 MG Hydrochlorothiazide 25 mg DAILY PO 08/07/25 10:00 08/08/25 10:09 25 MG Metoprolol Tartrate 25 mg BID PO 08/07/25 10:00 08/08/25 21:20 25 MG Lisinopril 2.5 mg DAILY PO 08/08/25 10:00 08/08/25 10:09 2.5 MG objective The patient is well-nourished and well-developed with no distress. MENTAL STATUS: Subjective CRANIAL NERVES: Pupils are round and reactive. There are conjugated eye movement, no ptosis, no abnormal vascular dilatation or skin secretion. No signs of facial weakness SENSATION: Responses to light touch in the pinprick MOTOR: Normal tone in the upper and lower extremity. Normal muscle bulk. No fasciculations. Moves the arms and the legs REFLEXES: Deep tendon reflexes are symmetrical. No pathological reflexes. CEREBELLAR/COORDINATION: Deferred GAIT/STATION: deferred laboratory and microbiology Laboratory Tests 08/08/25 11:24 08/07/25 03:21 Test 08/08/25 11:24 Range/Units Serum Glucose 161 H 74-106 mg/dL Problem List Coma, resolved Metabolic encephalopathy Toxic encephalopathy Hypoxic encephalopathy Possible community-acquired pneumonia vs a typical viral pneumonia Possible drug fever Rule out intracranial infection Hypernatremia Cognitive dysfunction, MCI. He may not have dementia AFib Coagulopathy secondary to anticoagulation treatment Acute respiratory failure, improving Fever Possible community-acquired pneumonia vs a typical viral pneumonia Possible drug fever Anisocoria, unclear clinical significance Assessment/Plan Monitoring Supportive treatment Telemetry Oxygen IV antibiotics Aspirin 81 mg daily Eliquis 2.5 mg b.i.d. Physical therapy Infectious disease consultation More recommendation per clinical course This medical document was created using an electronic medical record system with [employer] dictation system. Although this document has been carefully reviewed, there may still be some phonetic and typographical errors. These areas are purely typographical due to imperfections of the software programs, and do not reflect any compromise in the patient's medical care. Prognosis poor Dietary Evaluation Review Comments: Nutrition Recommendation: 1) EN Glucerna 1.2Cal @ 55ml/hr x 24hr (goal) along with Pro-stat 1 pk TID. Water flush 50ml Q6H if allowed, adjust PRN. TF at goal volume along with Pro-stat provide 1884 kcal (100%), 124 gm protein (91%), and 1263 ml free water(including flush). 2) TPN if NPO >7 days 3) Monitor NPO status, lab values, weight trend, and I/O Expected Outcomes/Goals: Intake to meet >75% estimated needs Lab values to improve FU 2-3 days Plan discussed with: Other CHRISTOPHER BLACK MD Aug 08, 2025 23:16
--- NOTE | 2025-08-08 23:27 | DVHPN2 ---
Subjective DOS: 08/08/2025 Patient seen and examined at bedside. Currently on room air Overnight events reviewed. Reviewed: Care Plan, H&P, Labs, Medications, Previous Orders, Radiology, Other (Consultations) Changes from previous H/P or p: No Changes General: Per HPI Objective Vitals Vital Signs Date Time Temp Pulse Resp B/P (MAP) Pulse Ox O2 Delivery O2 Flow Rate FiO2 08/08/25 22:20 70 107/65 08/08/25 21:00 97.8 19 90 97.8 08/08/25 20:00 Room Air* 0 21 Intake/Output Intake and Output 08/08/25 07:00 Intake Total 1420 ml Output Total 1750 ml Balance -330 ml Intake Oral 1320 ml IV Total 100 ml Output Urine Total 1750 ml # Bowel Movements 3 Exam Gen.: Patient lying in bed in no apparent distress. On room air. Head: Normocephalic, atraumatic. Eyes: EOMI/PERRLA. Ears: Normal hearing. Normal anatomy. Neck/trachea: Trachea midline, supple. Nose: Normal external anatomy. Mouth: Moist mucous membranes. Chest: Decreased air entry bilaterally. No wheezing or rhonchi. Cardiovascular: Positive S1, positive S2. Regular rate and rhythm. Abdomen: Positive bowel sounds in all 4 quadrants. Soft, non-tender, non- distended. : Deferred. Rectal: Deferred. Skin: Warm, dry. Intact. Extremities: 2+ radial pulses bilaterally. No lower extremity edema. Neuro: Awake, alert. No gross motor or sensory deficits. Cranial nerves II through XII intact. Gait not assessed. General Appearance: Alert, Oriented X3, Cooperative HEENT: Atraumatic, PERRLA, Other (Right IJ central line with no signs of bleeding/infection) Lungs: Clear to auscultation, Normal air movement Chest/Breasts: Other (Pacemaker in place) Cardiovascular: Normal S1, Normal S2, Other (V paced) Abdomen: Normal bowel sounds, Soft Genitourinary: No Apparent Abnormalities ([place] catheter) Musculoskeletal: Weak motor strength RUE, Weak motor strength LUE, Weak motor strength RLE, Weak motor strength LLE Neuro: Cranial nerves 3-12 NL Skin: Dry, Intact Psych/Mental Status: Mental status NL, Mood NL Medications Current Medications Medications Dose Ordered Sig/Lizabeth Route Start Time Stop Time Status Last Admin Dose Admin Ondansetron HCl 4 mg Q4HP PRN IV 07/22/25 15:00 Nitroglycerin 0.4 mg Q5MINP PRN SL 07/22/25 15:00 Diagnostic Test (Pha) 1 strip ACHS 07/22/25 17:00 08/08/25 21:21 1 STRIP Insulin Human Regular ACHS SC 07/22/25 17:00 08/08/25 21:25 3 UNITS Dextrose 50 ml UD PRN IV 07/22/25 16:30 Acetaminophen 500 mg Q6HP PRN PO 07/23/25 17:45 07/25/25 01:52 500 MG Docusate Sodium 100 mg BID PO 07/23/25 22:00 08/08/25 21:21 100 MG Memantine 5 mg HS PO 07/23/25 22:00 08/08/25 21:20 5 MG Midazolam HCl 100 ml @ 1 mls/hr Q24H IV 07/24/25 02:45 Cancel Fentanyl Citrate 250 ml @ 2.5 mls/hr Q24H IV 07/24/25 02:45 Cancel Azithromycin 250 ml @ 125 mls/hr DAILY IV 07/28/25 10:00 Cancel Hydralazine HCl 10 mg Q6HP PRN IV 07/30/25 16:45 08/02/25 06:40 10 MG Acetylcysteine 200 mg Q8HR IN 08/04/25 22:00 08/08/25 18:42 200 MG Albuterol 2.5 mg Q6HPRN PRN NEB 08/06/25 12:30 Albuterol 2.5 mg Q8H NEB 08/06/25 14:00 08/08/25 18:42 2.5 MG Amiodarone HCl 200 mg Q12HR PO 08/07/25 10:00 08/08/25 21:21 200 MG Apixaban 2.5 mg BID PO 08/07/25 10:00 08/08/25 21:20 2.5 MG Aspirin 81 mg DAILY PO 08/07/25 10:00 08/08/25 10:08 81 MG Atorvastatin Calcium 40 mg HS PO 08/07/25 22:00 08/08/25 21:20 40 MG Empaglifozin 25 mg DAILY PO 08/07/25 10:00 08/08/25 10:08 25 MG Hydrochlorothiazide 25 mg DAILY PO 08/07/25 10:00 08/08/25 10:09 25 MG Metoprolol Tartrate 25 mg BID PO 08/07/25 10:00 08/08/25 21:20 25 MG Lisinopril 2.5 mg DAILY PO 08/08/25 10:00 08/08/25 10:09 2.5 MG Laboratory Results Laboratory Tests 08/07/25 03:21 08/08/25 11:24 Chemistry Test 08/08/25 11:24 Calcium Level 9.6 mg/dL (8.7-10.4) Urinalysis Test 08/08/25 15:40 Urine Color Colorless (Yellow) Urine Clarity Clear (Clear) Urine pH 6.0 (5.0-9.0) Urine Specific [place] 1.024 (1.001-1.035) Urine Protein Negative (Negative) Urine Ketones Negative (Negative) Urine Blood 3+ /uL (Negative) H Urine Nitrite Negative (Negative) Urine Bilirubin Negative (Negative) Urine Urobilinogen Normal mg/dL (Negative) Urine Leukocyte Esterase Negative /uL (Negative) Urine RBC 244 /hpf (0 - 3) Urine Microscopic WBC 4 /HPF (0-3) H Urine Squamous Epithelial Cells Few /hpf (<5) Urine Bacteria None seen /hpf (None Seen) Urine Mucus Few (None Seen) Urine Glucose 4+ mg/dL (Normal) H Microbiology Microbiology Date/Time Source Procedure Growth Status 07/27/25 11:21 Blood Blood Culture - Final NO GROWTH AFTER 5 DAYS OF INCUBATION. Complete 07/24/25 03:35 Urine - [place] Urine Culture - Final Complete 07/24/25 03:26 Trachea Gram Stain - Final Complete 07/24/25 03:26 Trachea Respiratory Culture - Final Complete Assessment/Plan Assessment/Plan Impression: Acute hypoxic respiratory failure Dependence on supplemental oxygen S/p cardiac arrest Pulmonary congestion Congestive heart failure Obesity Events: Improved O2 requirements On room air No distress Pt has dyspnea on exertion Improving mentation Central line removed. Midline in place. Remains off pressors, hemodynamically stable. Chest x-ray today reveals stable-appearing moderate pulmonary vascular congestion. Aspiration risk. Head of bed elevation Aspiration precautions Continue bronchodilators/Mucomyst Chest physiotherapy Continue antibiotics Incentive spirometry Amiodarone PO/Eliquis/metoprolol for AFib Accu-Cheks, ISS. Protonix for GI ppx Patient is receiving free water. Monitor sodium Tube feeds via NGT for nutritional support Physical therapy, max assist. Disposition per hospitalist. Labs and imaging reviewed. Rest of plan as noted below. Plan: S/p extubation on 08/03/25 Supplemental oxygen PRN Titrate to keep O2 sats above 92%. Head of bed elevation Aspiration precautions Continue bronchodilators Continue antibiotics Incentive spirometry Accu-Cheks, ISS Tube feeds for nutritional support Monitor renal function. Monitor electrolytes. Supplement as necessary. Monitor ins and outs. Recommend diet and lifestyle modifications for weight reduction Obesity complicates all care DVT prophylaxis. Prognosis: Guarded given patient's multiple co-morbidities. Rest of plan per hospitalist and other consultants. Thank you, HERMINIA Sweeney, for allowing me to participate in this patient's care. Further recommendations will depend on the patient's clinical course. Please do not hesitate to contact me if you have any questions or concerns. This medical document was created using an electronic medical record system with [employer] computerized dictation system. Although these documentations are being carefully reviewed, there may still be some phonetic and typographical changes. The errors are purely typographical, due to imperfection on the software program, and do not reflect any compromise in the patient's medical care. Plan discussed with: Patient, Other (RN) Visit Coding Pulmonary Billing Provider: RUBI ASIF MD Date of Service if different f: Aug 08, 2025 Common Visit Codes: 70499-[id number] INP/OBS CARE(HIGH) RUBI ASIF MD Aug 08, 2025 23:27
[2025-08-09] VITALS (11 sets, daily range): BP systolic 86–121; BP diastolic 54–86; PULSE 66–70; RESP 16–20; TEMP 97.1–98.3; O2SAT 92–96
--- NOTE | 2025-08-09 12:56 | DVHDS2 ---
Discharge Summary Date of Admission Jul 22, 2025 at 14:47 Date of Discharge: Aug 09, 2025 Admitting Diagnosis Metabolic versus toxic encephalopathy Labs/Diagnostic Data: Laboratory Results Test 08/09/25 11:10 08/08/25 15:40 08/08/25 11:24 08/07/25 03:21 POC Glucose 209 mg/dl (70-106) Urine Color Colorless (Yellow) Urine Clarity Clear (Clear) Urine pH 6.0 (5.0-9.0) Urine Specific Confluence 1.024 (1.001-1.035) Urine Protein Negative (Negative) Urine Ketones Negative (Negative) Urine Blood 3+ /uL (Negative) Urine Nitrite Negative (Negative) Urine Bilirubin Negative (Negative) Urine Urobilinogen Normal mg/dL (Negative) Urine Leukocyte Esterase Negative /uL (Negative) Urine RBC 244 /hpf (0 - 3) Urine Microscopic WBC 4 /HPF (0-3) Urine Squamous Epithelial Cells Few /hpf (<5) Urine Bacteria None seen /hpf (None Seen) Urine Mucus Few (None Seen) Urine Glucose 4+ mg/dL (Normal) Sodium Level 138 mmol/L (136-145) Potassium Level 3.0 mmol/L (3.5-5.1) Chloride Level 98 mmol/L (98-107) Carbon Dioxide Level 30 mmol/L (20-31) Anion Gap 10 (5-15) Blood Urea Nitrogen 16 mg/dL (9-23) Creatinine 1.08 mg/dL (0.700-1.30) Glomerular Filtration Rate Calc 70 mL/min (>90) BUN/Creatinine Ratio 14.8 (10.0-20.0) Serum Glucose 161 mg/dL (74-106) Calcium Level 9.6 mg/dL (8.7-10.4) White Blood Count 8.4 10^3/uL (4.4-10.8) Red Blood Count 5.07 10^6/uL (4.5-5.90) Hemoglobin 16.4 g/dL (13.5-17.5) Hematocrit 48.7 % (41.0-53.0) Mean Corpuscular Volume 96.1 fL (80.0-100.0) Mean Corpuscular Hemoglobin 32.4 pg (28.0-32.0) Mean Corpuscular Hemoglobin Concent 33.7 g/dL (32.0-36.0) Red Cell Distribution Width 13.6 % (11.8-14.3) Platelet Count 218 10^3/uL (140-450) Mean Platelet Volume 9.0 fL (6.9-10.8) Neutrophils (%) (Auto) 55.3 % (37.0-80.0) Lymphocytes (%) (Auto) 32.7 % (10.0-50.0) Monocytes (%) (Auto) 9.1 % (0.0-12.0) Eosinophils (%) (Auto) 2.3 % (0.0-7.0) Basophils (%) (Auto) 0.6 % (0.0-2.0) Neutrophils # (Auto) 4.6 10 ^3/uL (1.6-8.6) Lymphocytes # (Auto) 2.8 10 ^3/uL (0.4-5.4) Monocytes # (Auto) 0.8 10 ^3/uL (0-1.3) Eosinophils # (Auto) 0.2 10 ^3/uL (0-0.8) Basophils # (Auto) 0.1 10 ^3/uL (0-0.2) Nucleated Red Blood Cells 0.1 % Magnesium Level 2.2 mg/dL (1.6-2.6) Test 08/04/25 02:39 08/03/25 09:26 08/03/25 06:11 08/03/25 02:31 Serum Osmolality 329 mOsm/kg (278-298) Blood Gas Specimen Type Arterial Blood Gas Sample Site Left radial Blood Gas Patient Temperature 37.0 Arterial Blood Date Drawn [id number] Arterial Blood pH 7.446 (7.350-7.450) Arterial Blood Partial Pressure CO2 37.8 mmHg (35.0-48.0) Arterial Blood Partial Pressure O2 88.2 mmHg (83.0-108.0) Arterial Blood HCO3 25.4 mmol/L (21.0-28.0) Arterial Blood Oxygen Saturation 96.5 % (94.0-98.0) Arterial Blood Base Excess 1.6 mmol/L (-2.0-3.0) Arterial Blood Oxyhemoglobin 95.2 % (94.0-98.0) Arterial Blood Carboxyhemoglobin 0.9 % (0.5-1.5) Arterial Blood Methemoglobin 0.4 % (0.0-1.5) Arterial Blood Deoxyhemoglobin 3.5 % (0.0-5.0) Brennan Test Modified Blood Gas Total Hemoglobin 17.30 g/dL (13.5-17.5) Blood Gas Modality Vent - cpap FiO2 % 30.0 Blood Gas Pressure Support 8 Blood Gas PEEP or CPAP 5.0 Blood Gas Set Respiration Rate 16.0 Blood Gas Tidal Volume 550.0 B-Type Natriuretic Peptide 59.45 pg/mL (0-100) Test 08/02/25 11:50 07/31/25 02:50 07/29/25 14:23 07/28/25 02:35 Blood Gas Spontaneous Rate 29 Blood Gas Spontaneous Tidal Volume 481 Bl Gas Inspiratory/Expiratory Ratio 1:1.3 Total Bilirubin 0.6 mg/dL (0.2-1.0) Aspartate Amino Transferase (AST) 38 U/L (13-40) Alanine Aminotransferase (ALT) 31 U/L (7-40) Alkaline Phosphatase 88 U/L (46-116) Total Protein 6.5 g/dL (5.7-8.2) Albumin 3.4 g/dL (3.2-4.8) Legionella pneumophila S1-6 Abs Non reactive (Non Reactive) Mycoplasma pneumoniae IgG Antibody 487 U/mL (0-99) Mycoplasma pneumoniae IgM Antibody <770 U/mL (0-769) Direct Bilirubin 0.3 mg/dL (<0.3) Test 07/27/25 11:15 07/27/25 07:10 07/27/25 02:20 07/26/25 03:25 HIV (1&2) Antibody Negative (Negative) Blood Gas Critical Value Read Back yes Blood Gas Notified Whom adams short Blood Gas Notified Time [id number] Blood Gas Notified By ej morales Creatine Kinase 346 U/L (46-171) Prothrombin Time 12.5 sec (9.3-11.8) Prothrombin Time INR 1.20 (0.9-1.15) Activated Partial Thromboplast Time 38.4 SEC (24.5-34.5) Test 07/25/25 03:05 07/24/25 14:47 07/24/25 08:30 07/24/25 03:20 Erythrocyte Sedimentation Rate 3 mm/hr (0-20) Troponin I High Sensitivity 657 ng/L (</=54) C-Reactive Protein High Sensitivity 3.74 mg/dL (<1.0) Ammonia 20 umol/L (11-32) Vitamin B12 Level 1658 pg/mL (211-911) Vitamin D 25-Hydroxy 24 ng/mL (.) 25-Hydroxy Vitamin D2 <1.0 ng/mL (.) 25-Hydroxy Vitamin D3 24 ng/mL (.) Triglycerides Level 100 mg/dL (< 150) Cholesterol Level 103 mg/dL (< 200) LDL Cholesterol 42 mg/dL (< 100) HDL Cholesterol 47 mg/dL (40-59) Thyroid Stimulating Hormone (TSH) 1.34 uIU/mL (0.55-4.78) D-Dimer, Quantitative 0.87 mg/L FEU (0.0-0.49) Hemoglobin A1c 7.8 % A1C (<5.7) Phosphorus Level 4.0 mg/dL (2.4-5.1) Test 07/23/25 06:28 07/22/25 17:07 07/22/25 09:31 Hepatitis B Surface Antigen Negative (Negative) Hepatitis C Antibody Negative (Negative) Influenza Type A Antigen Negative (Negative) Influenza Type B Antigen Negative (Negative) SARS-CoV-2 Antigen (Rapid) Negative (NEGATIVE) Lactic Acid Level 1.8 mmol/L (0.4-2.0) Other Laboratory Tests 08/08/25 11:24 08/07/25 03:21 Brief Hx & Hospital Course: History of Present Illness Mr. Renee, a 80-year-old male with a history of dementia, atrial fibrillation /Atrial flutter, prior ETOH abuse and hypertension presents to the ED via EMS for altered level of consciousness. 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 Patient recently had a pacemaker placed on June 27, at [place]. Patient complains of frequency of urination with several episodes of urinary incontinence, otherwise denies, pain, nausea, vomiting, fever, sick contact or other unusual changes. On arrival, patient is moderately symptomatic with decreased alertness and confusion; denies prior surgeries. [facility] historian and son can not recall home medications. But agreed to bring the home medications and further medical history pending. Course of hospitalization: Patient apparently became unresponsive with questionable seizure activity on the Medical/Surgical floor. Patient was subsequently a code blue with endotracheal intubation and mechanical ventilation. Patient was treated empirically with antibiotic therapies given new onset of fevers. 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 Antibiotics were deescalated. He was successfully extubated from mechanical ventilation is currently on room air. Patient has a history of dementia, and his possibly at his baseline status. He is able to follow commands. He is tolerating oral intake, as well as taking his oral medications which was difficult after extubation. He is receiving physical therapy and ambulating approximately 8 ft. Efforts were made to transfer to [facility] while he was on the ventilator, with the patient now deemed stable to be transferred given he is on the telemetry floor. Patient will continue all medications as well as physical therapy until time of transfer. Patient's son is also aware of plan of care. Physical examination General: Alert and Oriented x3. No acute distress. Well-nourished. Eyes: EOMI. Anicteric. HENT: Moist mucous membranes. Lungs: Clear to auscultation bilaterally. No accessory muscle use. Cardiovascular: Regular rate and rhythm. No murmur. No JVD. AV paced Abdomen: Soft, non-tender and non-distended. No palpable masses. Extremities: No edema. Non-tender. Skin: No rashes or lesions. Warm. Neurologic: No focal neurological deficits. CN II-XII grossly intact, but not individually tested. Psychiatric: Cooperative. Appropriate mood and affect. Total time spent with patient discussing and formulating plan of care: 35 minutes. This medical document was created using an electronic medical record system with [employer] dictation system. Although this document has been carefully reviewed, there may still be some phonetic and typographical errors. These areas are purely typographical due to imperfections of the software programs, and do not reflect any compromise in the patient's medical care. Consults/Reason for consult Cardiology: Elevated troponin Neurology: Altered mental status Pulmonology: Acute respiratory failure Operations or Procedures Left heart catheterization without intervention Condition at Discharge: Fair Final Diagnosis/Problems List -acute metabolic encephalopathy -acute hypoxic respiratory failure -questionable acute seizure activity with postictal state -acute on chronic diastolic heart failure -atrial flutter with controlled rate -recent placement of dual-chamber pacemaker -? History of ETOH -acute kidney injury, vasomotor nephropathy -obesity -primary hypertension -NSTEMI, probably type 2 -rhabdomyolysis Discharge Disposition: Acute Care Facility Discharge Instruct/Medications Diet: Consistent carbohydrate Activity: No Restrictions, As Tolerated Follow Up/Referral: Per accepting provider Medications: Refer to medication reconciliation form Scheduled Apixaban Base (Eliquis), 5 MG PO BID, (Reported) Atorvastatin Calcium (Atorvastatin Calcium), 1 TAB PO DAILY, (Reported) Benzonatate (Benzonatate), 1 CAP PO TID, (Reported) Docusate Sodium (Colace), 1 CAP PO BID, (Reported) Empagliflozin (Jardiance), 25 MG PO DAILY, (Reported) Furosemide (Furosemide), 1 TAB PO DAILY, (Reported) Lisinopril (Lisinopril), 0.5 TAB PO DAILY, (Reported) Memantine Hydrochloride (Memantine HCl), 5 MG PO HS, (Reported) Scheduled PRN Acetaminophen (Tylenol Extra Strength), 500 MG PO Q6HP PRN for PAIN, (Reported) 36 Discharge Statement: "Patient was advised to return to the ER or call 911 if any headaches, dizziness, shortness of breath, chest pain, abdominal pain, bleeding, fevers, or worsening of medical condition. Patient was counseled about treatment plan, medications, possible side effects, patientverbalized understanding. All questions were answered to the best of my ability. This discharge took greater then 30 minutes in planning, reviewing documentation, counseling the patient, and discussing with other team members." ASSESSMENT ASSESSMENT Assessment Date of Service: Aug 09, 2025 Billing Provider: FLORY OSMAN NP Common Visit Codes: 94837-VID/OBS DISCH DAY >30min FLORY OSMAN NP Aug 09, 2025 12:56
--- NOTE | 2025-08-09 20:15 | DVHPN2 ---
Consult Progress Note Date Seen: Aug 08, 2025 Subjective Patient reports: Feels better (no fever or chills off antibiotics) Objective vital signs Vital Sign Date Time Temp Pulse Resp B/P (MAP) Pulse Ox O2 Delivery O2 Flow Rate FiO2 08/09/25 16:48 97.5 70 17 86/55 (65) 95 97.5 08/09/25 14:24 Room Air* 0 21 Total Intake and Output 08/08/25 08/08/25 08/09/25 15:00 23:00 07:00 Intake Total 4160 ml 484 ml Output Total 2000 ml 1000 ml Balance 2160 ml -516 ml medications Current Medications Medications Dose Ordered Sig/Lizabeth Route Start Time Stop Time Status Last Admin Dose Admin Ondansetron HCl 4 mg Q4HP PRN IV 07/22/25 15:00 Nitroglycerin 0.4 mg Q5MINP PRN SL 07/22/25 15:00 Diagnostic Test (Pha) 1 strip ACHS 07/22/25 17:00 08/09/25 16:26 1 STRIP Insulin Human Regular ACHS SC 07/22/25 17:00 08/09/25 16:30 2 UNITS Dextrose 50 ml UD PRN IV 07/22/25 16:30 Acetaminophen 500 mg Q6HP PRN PO 07/23/25 17:45 07/25/25 01:52 500 MG Docusate Sodium 100 mg BID PO 07/23/25 22:00 08/09/25 08:52 100 MG Memantine 5 mg HS PO 07/23/25 22:00 08/08/25 21:20 5 MG Midazolam HCl 100 ml @ 1 mls/hr Q24H IV 07/24/25 02:45 Cancel Fentanyl Citrate 250 ml @ 2.5 mls/hr Q24H IV 07/24/25 02:45 Cancel Azithromycin 250 ml @ 125 mls/hr DAILY IV 07/28/25 10:00 Cancel Hydralazine HCl 10 mg Q6HP PRN IV 07/30/25 16:45 08/02/25 06:40 10 MG Acetylcysteine 200 mg Q8HR IN 08/04/25 22:00 08/09/25 06:16 200 MG Albuterol 2.5 mg Q6HPRN PRN NEB 08/06/25 12:30 Albuterol 2.5 mg Q8H NEB 08/06/25 14:00 08/09/25 06:16 2.5 MG Amiodarone HCl 200 mg Q12HR PO 08/07/25 10:00 08/09/25 08:54 200 MG Apixaban 2.5 mg BID PO 08/07/25 10:00 08/09/25 08:53 2.5 MG Aspirin 81 mg DAILY PO 08/07/25 10:00 08/09/25 08:51 81 MG Atorvastatin Calcium 40 mg HS PO 08/07/25 22:00 08/08/25 21:20 40 MG Empaglifozin 25 mg DAILY PO 08/07/25 10:00 08/09/25 08:52 25 MG Hydrochlorothiazide 25 mg DAILY PO 08/07/25 10:00 08/09/25 08:55 25 MG Metoprolol Tartrate 25 mg BID PO 08/07/25 10:00 08/09/25 08:55 25 MG Lisinopril 2.5 mg DAILY PO 08/08/25 10:00 08/09/25 08:57 2.5 MG laboratory and microbiology Laboratory Tests 08/08/25 11:24 08/07/25 03:21 Test 08/08/25 11:24 Range/Units Serum Glucose 161 H 74-106 mg/dL Problem List/Assessment/Plan Problem List/Assessment/Plan ASSESSMENT AND PLAN: ID Problem List: - acute hypoxic respiratory failure - atypical pneumonia -Altered mental status with decreased level of consciousness -Intermittent fevers during hospitalization (onset ~07/24, peak 102F on 07/25) -Leukocytosis (harry to 11.9 on 07/26) -Atrial fibrillation/atrial flutter; s/p pacemaker placement (06/27, [place]) -Hypertension -Possible community-acquired pneumonia vs atypical/viral pneumonia (no clear focal consolidation on CXR) -Possible drug fever (ceftriaxone; consider other recent medications) -Elevated troponin (657 on 07/24) and bundle branch block on EKG -Cardiomegaly with pulmonary vascular congestion on chest imaging -Intubated 07/23; on fentanyl infusion; on vasopressor support (norepinephrine) -Aortic systolic ejection murmur -Left shoulder blister, scabbed -Obesity (BMI 35.6) -Former alcohol use disorder; former smoker Assessment This is a male with a history of atrial fibrillation/atrial flutter, hypertension, former heavy alcohol use (currently abstinent), former smoker, and pacemaker placement on 06/27 who presented with decreased level of consciousness after several days of pacemaker-detected arrhythmias. Admission vitals were stable without initial fever; he subsequently developed fevers beginning ~07/24 peaking at 102F on 07/25, then trending down. He was intubated on 07/23, now on minimal ventilator support; he remains on norepinephrine (14 mcg) with improving blood pressures over 2448 hours. Cultures (blood, urine) have been negative to date; tracheal/respiratory culture shows normal oropharyngeal chely. Chest imaging demonstrates cardiomegaly and moderate pulmonary vascular congestion without a clear focal pneumonia. EKG shows a bundle branch block and troponin harry to 657 on 07/24. Leukocytosis increased to 11.9 on 07/26. UA shows mild pyuria (11 WBC), negative LE/nitrites, no bacteria, and 4+ glucosuria; urine cultures negative. Head CT shows no acute intracranial process; renal ultrasound without hydronephrosis. Differential for fevers and leukocytosis includes atypical/viral pneumonia, drug fever (ceftriaxone; also consider recent furosemide, increased statin dose, amiodarone), venous thromboembolism with possible inflammatory fever, aspiration pneumonitis, and noninfectious ischemic hepatopathy in the context of critical illness and elevated troponin. 07/28: fever curve improving but still febrile, doppler US negative for DVT, HIV negative 07/29: off pressors, hypoxia improving on minimal vent 07/30: no new fevers 07/31: requiring antipyretic, cooling blanket 08/01: worsening hypernatremia, no true fevers but recurrent elevated temps 08/02: doxycycline stopped, switched to levofloxacin for elevated temps 08/04: extubated to 2LNC, no ongoing sign of infection 08/08: no ongoing signs of infection Plan: -Antimicrobials: - will monitor clinically off all antibiotics -Diagnostics: - check legionella ag and mycoplasma ab--> negative -Fever/Leukocytosis: -Monitor fever curve; note that resolution may take several days if drug fever- related. -Continue to monitor WBC trend and clinical status. -Respiratory: -Continue ventilatory weaning as tolerated; monitor for signs of aspiration or evolving pneumonia. -Repeat chest imaging as clinically indicated. -Cardiovascular: -Continue amiodarone per cardiology. -Trend troponins. -Maintain adequate perfusion; coordinate with cardiology regarding vasopressor/inotrope strategy (cardioselective agents as appropriate). -Renal/Volume: -Monitor urine output (reported ~1,300 cc/day); continue diuresis with furosemide as clinically indicated. -Supportive care: -Antipyretics as needed (acetaminophen given once on 07/24). -Continue ICU-level monitoring and supportive measures. -Infection prevention: -No evidence for catheter- or skin-source infection on current exam; continue routine line care and skin assessments. Isolation Precautions: standard \*Assessment and plan was discussed with the care team as written above. \*Plan is subject to change pending incorporation of new incoming information/diagnostics. Updates may be added as addendum at the bottom (OR TOP) of this note. Thank you for the consult. Infectious Diseases will continue to follow. Please contact Infectious Disease for any questions or concerns. ++++++++++++++++++++++++++++++++++++++++++++++++++++++++++++++++++++++++ Physical Exam: General: NAD Neck: Supple. No masses. HEENT: PERRL. Normal lids and conjunctiva. Moist mucous membranes. Oropharynx without lesions, exudates or excessive erythema. Normal appearance of the external aspects of the nose and ears. Heart: Regular rhythm, normal rate. Aortic systolic ejection murmur present. No lower extremity edema noted. Lungs: Normal respiratory effort. Clear to auscultation bilaterally. No wheezes. No crackles. Abdomen: Soft. Non-tender. Non-distended. Normal bowel sounds. No masses or abdominal hernia. Msk: No digital cyanosis. Normal tone in all 4 limbs. Skin: Warm and dry, no rashes. Left shoulder blister with scab. Neuro: Lethargic but oriented to person, place, and time when arousable. No facial droop or slurred speech. Extra-ocular movements intact. Sensation intact to soft touch in all 4 limbs. Decreased strength in upper and lower extremities. Psych: Appropriate mood. Full affect when interactive. Oriented to person, place, time, and situation when arousable. Plan discussed with: Patient Dietary Evaluation Review Comments: Nutrition Recommendation: 1) EN Glucerna 1.2Cal @ 55ml/hr x 24hr (goal) along with Pro-stat 1 pk TID. Water flush 50ml Q6H if allowed, adjust PRN. TF at goal volume along with Pro-stat provide 1884 kcal (100%), 124 gm protein (91%), and 1263 ml free water(including flush). 2) TPN if NPO >7 days 3) Monitor NPO status, lab values, weight trend, and I/O Expected Outcomes/Goals: Intake to meet >75% estimated needs Lab values to improve FU 2-3 days DHRUV GERMAN MD Aug 09, 2025 20:15
--- NOTE | 2025-08-09 23:20 | DVHPN2 ---
Progress Note - Dictate Date Seen: Aug 09, 2025 Has the PT tested + for MRSA If YES, has PT been informed?: No Medical Necessity Reason Pt with a Central, PICC or Fol: No Subjective Mr. Renee is a 80 years old right-handed gentleman with a history of hypertension, diabetes, atrial fibrillation, dementia, obesity, he came to the [facility] on 07/22/2025 with a chief complaint of altered mental status. I have seen and examined the patient in she, I have talked to his nurses sitter, and physical therapist, he is very sleepy, but is oriented to person and place, he knows year and the month He still have lot of problem with gait Pupil size: 08/04/2025, 08/05/25: Rt: 3-4mm, Lt: 3mm, 08/06/2025 Rt: 4mm, Lt: 3-4mm, 08/06/2025 Rt: 4mm, Lt: 3-4mm According to ER record, memantine and Eliquis were in his home medication list Urinalysis, 07/22/2025: WBC: 11, urine leukocyte esterase: Negative ABG, 07/26/2025: Combined metabolic and respiratory acidosis Blood culture, 07/22/2025: No growth Blood culture, 07/24/2025: WBC/HB/PLT/MCV, 07/26/2025: 11.9/75/147/97.7 PT/INR/ABG, 07/25/2025: 12.2/1.17/34.7, 07/26/2025: 12.5/1.2/38.4 Na, 07/28/25: 144, 07/29/2025: 147, 07/30/2025: 150, 07/31/2025: 151 08/01/25: 151, 08/04/2025: 154, 08/05/2025: 49, 08/06/2025: 146 BUN/CR, 07/25/2025: 17/1.44 GFR, 07/25/2025: 49, 07/31/2025: 32/0.94 HGB A1c, 07/24/2025: 7.8 TBI/AST/ALT/AP, 07/25/2025: 0.8/45/42/68 TG/HDL/LDL/HDL, 07/24/2025: 100/103/42/47 Vitamin B12, 07/24/25: 1658 TSH, 07/24/2025: 1.34 Chest x-ray, 07/24/2025: Heart is prominent size. There is moderate pulmonary vascular congestion. Dual lead left cardiac device. Enteric tube tip is not well visualized. Endotracheal tube is 4 cm from the de Chest x-ray, 07/26/2025: Lines and tubes in satisfactory position. Increased interstitial prominence. This may represent pulmonary vascular congestion and/or viral pneumonia. Chest x-ray, 07/31/2025: 1. Lines and tubes unchanged. 2. Stable diffuse increased prominence of the pulmonary vasculature CT head, 07/22/2025: No acute intracranial abnormality CT head, 08/01/2025: No evidence of acute intracranial abnormality vital signs Vital Sign Date Time Temp Pulse Resp B/P (MAP) Pulse Ox O2 Delivery O2 Flow Rate FiO2 08/09/25 21:00 98.3 70 19 96/57 (70) 94 98.3 08/09/25 20:00 Room Air* 0 21 Total Intake and Output 08/08/25 08/08/25 08/09/25 15:00 23:00 07:00 Intake Total 4160 ml 484 ml Output Total 2000 ml 1000 ml Balance 2160 ml -516 ml medications Current Medications Medications Dose Ordered Sig/Lizabeth Route Start Time Stop Time Status Last Admin Dose Admin Ondansetron HCl 4 mg Q4HP PRN IV 07/22/25 15:00 Nitroglycerin 0.4 mg Q5MINP PRN SL 07/22/25 15:00 Diagnostic Test (Pha) 1 strip ACHS 07/22/25 17:00 08/09/25 21:24 1 STRIP Insulin Human Regular ACHS SC 07/22/25 17:00 08/09/25 21:22 3 UNITS Dextrose 50 ml UD PRN IV 07/22/25 16:30 Acetaminophen 500 mg Q6HP PRN PO 07/23/25 17:45 07/25/25 01:52 500 MG Docusate Sodium 100 mg BID PO 07/23/25 22:00 08/09/25 21:23 100 MG Memantine 5 mg HS PO 07/23/25 22:00 08/09/25 21:23 5 MG Midazolam HCl 100 ml @ 1 mls/hr Q24H IV 07/24/25 02:45 Cancel Fentanyl Citrate 250 ml @ 2.5 mls/hr Q24H IV 07/24/25 02:45 Cancel Azithromycin 250 ml @ 125 mls/hr DAILY IV 07/28/25 10:00 Cancel Hydralazine HCl 10 mg Q6HP PRN IV 07/30/25 16:45 08/02/25 06:40 10 MG Acetylcysteine 200 mg Q8HR IN 08/04/25 22:00 08/09/25 06:16 200 MG Albuterol 2.5 mg Q6HPRN PRN NEB 08/06/25 12:30 Albuterol 2.5 mg Q8H NEB 08/06/25 14:00 08/09/25 06:16 2.5 MG Amiodarone HCl 200 mg Q12HR PO 08/07/25 10:00 08/09/25 21:23 200 MG Apixaban 2.5 mg BID PO 08/07/25 10:00 08/09/25 21:23 2.5 MG Aspirin 81 mg DAILY PO 08/07/25 10:00 08/09/25 08:51 81 MG Atorvastatin Calcium 40 mg HS PO 08/07/25 22:00 08/09/25 21:23 40 MG Empaglifozin 25 mg DAILY PO 08/07/25 10:00 08/09/25 08:52 25 MG Hydrochlorothiazide 25 mg DAILY PO 08/07/25 10:00 08/09/25 08:55 25 MG Metoprolol Tartrate 25 mg BID PO 08/07/25 10:00 08/09/25 08:55 25 MG Lisinopril 2.5 mg DAILY PO 08/08/25 10:00 08/09/25 08:57 2.5 MG objective The patient is well-nourished and well-developed with no distress. MENTAL STATUS: Subjective CRANIAL NERVES: Pupils are round and reactive. There are conjugated eye movement, no ptosis, no abnormal vascular dilatation or skin secretion. No signs of facial weakness SENSATION: Responses to light touch in the pinprick MOTOR: Normal tone in the upper and lower extremity. Normal muscle bulk. No fasciculations. Moves the arms and the legs REFLEXES: Deep tendon reflexes are symmetrical. No pathological reflexes. CEREBELLAR/COORDINATION: Deferred GAIT/STATION: deferred laboratory and microbiology Laboratory Tests 08/08/25 11:24 08/07/25 03:21 Test 08/08/25 11:24 Range/Units Serum Glucose 161 H 74-106 mg/dL Problem List Coma, resolved Metabolic encephalopathy Toxic encephalopathy Hypoxic encephalopathy Possible community-acquired pneumonia vs a typical viral pneumonia Possible drug fever Rule out intracranial infection Hypernatremia Cognitive dysfunction, MCI. He may not have dementia AFib Coagulopathy secondary to anticoagulation treatment Acute respiratory failure, improving Fever Possible community-acquired pneumonia vs a typical viral pneumonia Possible drug fever Anisocoria, unclear clinical significance Assessment/Plan Monitoring Supportive treatment Telemetry Oxygen IV antibiotics Aspirin 81 mg daily Eliquis 2.5 mg b.i.d. Physical therapy Infectious disease consultation More recommendation per clinical course This medical document was created using an electronic medical record system with [employer] dictation system. Although this document has been carefully reviewed, there may still be some phonetic and typographical errors. These areas are purely typographical due to imperfections of the software programs, and do not reflect any compromise in the patient's medical care. Prognosis poor Dietary Evaluation Review Comments: Nutrition Recommendation: 1) EN Glucerna 1.2Cal @ 55ml/hr x 24hr (goal) along with Pro-stat 1 pk TID. Water flush 50ml Q6H if allowed, adjust PRN. TF at goal volume along with Pro-stat provide 1884 kcal (100%), 124 gm protein (91%), and 1263 ml free water(including flush). 2) TPN if NPO >7 days 3) Monitor NPO status, lab values, weight trend, and I/O Expected Outcomes/Goals: Intake to meet >75% estimated needs Lab values to improve FU 2-3 days Plan discussed with: Other CHRISTOPHER BLACK MD Aug 09, 2025 23:20
--- NOTE | 2025-08-09 23:36 | DVHPN2 ---
Subjective DOS: 08/09/2025 Patient seen and examined at bedside. Remains on room air Overnight events reviewed. Reviewed: Care Plan, H&P, Labs, Medications, Previous Orders, Radiology, Other (Consultations) Changes from previous H/P or p: No Changes General: Per HPI Objective Vitals Vital Signs Date Time Temp Pulse Resp B/P (MAP) Pulse Ox O2 Delivery O2 Flow Rate FiO2 08/09/25 21:00 98.3 70 19 96/57 (70) 94 98.3 08/09/25 20:00 Room Air* 0 21 Intake/Output Intake and Output 08/09/25 07:00 Intake Total 4644 ml Output Total 3000 ml Balance 1644 ml Intake Oral 4644 ml Output Urine Total 3000 ml # Bowel Movements 2 Exam Gen.: Patient lying in bed in no apparent distress. On room air. Head: Normocephalic, atraumatic. Eyes: EOMI/PERRLA. Ears: Normal hearing. Normal anatomy. Neck/trachea: Trachea midline, supple. Nose: Normal external anatomy. Mouth: Moist mucous membranes. Chest: Decreased air entry bilaterally. No wheezing or rhonchi. Cardiovascular: Positive S1, positive S2. Regular rate and rhythm. Abdomen: Positive bowel sounds in all 4 quadrants. Soft, non-tender, non- distended. : Deferred. Rectal: Deferred. Skin: Warm, dry. Intact. Extremities: 2+ radial pulses bilaterally. No lower extremity edema. Neuro: Awake, alert. No gross motor or sensory deficits. Cranial nerves II through XII intact. Gait not assessed. General Appearance: Alert, Oriented X3, Cooperative HEENT: Atraumatic, PERRLA, Other (Right IJ central line with no signs of bleeding/infection) Lungs: Clear to auscultation, Normal air movement Chest/Breasts: Other (Pacemaker in place) Cardiovascular: Normal S1, Normal S2, Other (V paced) Abdomen: Normal bowel sounds, Soft Genitourinary: No Apparent Abnormalities ([place] catheter) Musculoskeletal: Weak motor strength RUE, Weak motor strength LUE, Weak motor strength RLE, Weak motor strength LLE Neuro: Cranial nerves 3-12 NL Skin: Dry, Intact Psych/Mental Status: Mental status NL, Mood NL Medications Current Medications Medications Dose Ordered Sig/Lizabeth Route Start Time Stop Time Status Last Admin Dose Admin Ondansetron HCl 4 mg Q4HP PRN IV 07/22/25 15:00 Nitroglycerin 0.4 mg Q5MINP PRN SL 07/22/25 15:00 Diagnostic Test (Pha) 1 strip ACHS 07/22/25 17:00 08/09/25 21:24 1 STRIP Insulin Human Regular ACHS SC 07/22/25 17:00 08/09/25 21:22 3 UNITS Dextrose 50 ml UD PRN IV 07/22/25 16:30 Acetaminophen 500 mg Q6HP PRN PO 07/23/25 17:45 07/25/25 01:52 500 MG Docusate Sodium 100 mg BID PO 07/23/25 22:00 08/09/25 21:23 100 MG Memantine 5 mg HS PO 07/23/25 22:00 08/09/25 21:23 5 MG Midazolam HCl 100 ml @ 1 mls/hr Q24H IV 07/24/25 02:45 Cancel Fentanyl Citrate 250 ml @ 2.5 mls/hr Q24H IV 07/24/25 02:45 Cancel Azithromycin 250 ml @ 125 mls/hr DAILY IV 07/28/25 10:00 Cancel Hydralazine HCl 10 mg Q6HP PRN IV 07/30/25 16:45 08/02/25 06:40 10 MG Acetylcysteine 200 mg Q8HR IN 08/04/25 22:00 08/09/25 06:16 200 MG Albuterol 2.5 mg Q6HPRN PRN NEB 08/06/25 12:30 Albuterol 2.5 mg Q8H NEB 08/06/25 14:00 08/09/25 06:16 2.5 MG Amiodarone HCl 200 mg Q12HR PO 08/07/25 10:00 08/09/25 21:23 200 MG Apixaban 2.5 mg BID PO 08/07/25 10:00 08/09/25 21:23 2.5 MG Aspirin 81 mg DAILY PO 08/07/25 10:00 08/09/25 08:51 81 MG Atorvastatin Calcium 40 mg HS PO 08/07/25 22:00 08/09/25 21:23 40 MG Empaglifozin 25 mg DAILY PO 08/07/25 10:00 08/09/25 08:52 25 MG Hydrochlorothiazide 25 mg DAILY PO 08/07/25 10:00 08/09/25 08:55 25 MG Metoprolol Tartrate 25 mg BID PO 08/07/25 10:00 08/09/25 08:55 25 MG Lisinopril 2.5 mg DAILY PO 08/08/25 10:00 08/09/25 08:57 2.5 MG Laboratory Results Laboratory Tests 08/07/25 03:21 08/08/25 11:24 Urinalysis Test 08/08/25 15:40 Urine Color Colorless (Yellow) Urine Clarity Clear (Clear) Urine pH 6.0 (5.0-9.0) Urine Specific [place] 1.024 (1.001-1.035) Urine Protein Negative (Negative) Urine Ketones Negative (Negative) Urine Blood 3+ /uL (Negative) H Urine Nitrite Negative (Negative) Urine Bilirubin Negative (Negative) Urine Urobilinogen Normal mg/dL (Negative) Urine Leukocyte Esterase Negative /uL (Negative) Urine RBC 244 /hpf (0 - 3) Urine Microscopic WBC 4 /HPF (0-3) H Urine Squamous Epithelial Cells Few /hpf (<5) Urine Bacteria None seen /hpf (None Seen) Urine Mucus Few (None Seen) Urine Glucose 4+ mg/dL (Normal) H Microbiology Microbiology Date/Time Source Procedure Growth Status 07/27/25 11:21 Blood Blood Culture - Final NO GROWTH AFTER 5 DAYS OF INCUBATION. Complete 07/24/25 03:35 Urine - [place] Urine Culture - Final Complete 07/24/25 03:26 Trachea Gram Stain - Final Complete 07/24/25 03:26 Trachea Respiratory Culture - Final Complete Assessment/Plan Assessment/Plan Impression: Acute hypoxic respiratory failure Dependence on supplemental oxygen S/p cardiac arrest Pulmonary congestion Congestive heart failure Obesity Events: Improved O2 requirements On room air No distress Dyspnea on exertion Improving mentation Central line removed. Midline in place. Remains off pressors, hemodynamically stable. Chest x-ray on 08/08/25 reveals stable-appearing moderate pulmonary vascular congestion. Aspiration risk. Head of bed elevation Aspiration precautions Continue bronchodilators/Mucomyst Chest physiotherapy Continue antibiotics Incentive spirometry Amiodarone PO/Eliquis/metoprolol for AFib Accu-Cheks, ISS. Protonix for GI ppx Tube feeds via NGT for nutritional support Physical therapy, max assist. Disposition per hospitalist. Labs and imaging reviewed. Rest of plan as noted below. Plan: S/p extubation on 08/03/25 Supplemental oxygen PRN Titrate to keep O2 sats above 92%. Head of bed elevation Aspiration precautions Continue bronchodilators Continue antibiotics Incentive spirometry Accu-Cheks, ISS Tube feeds for nutritional support Monitor renal function. Monitor electrolytes. Supplement as necessary. Monitor ins and outs. Recommend diet and lifestyle modifications for weight reduction Obesity complicates all care DVT prophylaxis. Prognosis: Guarded given patient's multiple co-morbidities. Rest of plan per hospitalist and other consultants. Thank you, HERMINIA Sweeney, for allowing me to participate in this patient's care. Further recommendations will depend on the patient's clinical course. Please do not hesitate to contact me if you have any questions or concerns. This medical document was created using an electronic medical record system with [employer] dictation system. Although these documentations are being carefully reviewed, there may still be some phonetic and typographical changes. The errors are purely typographical, due to imperfection on the software program, and do not reflect any compromise in the patient's medical care. Plan discussed with: Patient, Other (JUVENAL [place]) Visit Coding Pulmonary Billing Provider: RUBI ASIF MD Date of Service if different f: Aug 09, 2025 Common Visit Codes: [id number] INP/OBS CARE(HIGH) RUBI ASIF MD Aug 09, 2025 23:36
--- NOTE | 2025-08-09 23:53 | DVHPN2 ---
Progress Note - Dictate Date Seen: Aug 09, 2025 Has the PT tested + for MRSA If YES, has PT been informed?: No Medical Necessity Reason Pt with a Central, PICC or Fol: No Subjective Patient was seen and evaluated in follow up. Patient appears sleepy. Sitter is at bedside. Sitter and nurse reported intermittent confusion. BS are in the 200's. Telemetry reviewed vital signs Vital Sign Date Time Temp Pulse Resp B/P (MAP) Pulse Ox O2 Delivery O2 Flow Rate FiO2 08/09/25 10:00 Room Air* 0 21 08/09/25 09:00 97.6 66 17 116/54 (74 92 97.6 Total Intake and Output 08/08/25 08/08/25 08/09/25 15:00 23:00 07:00 Intake Total 4160 ml 484 ml Output Total 2000 ml 1000 ml Balance 2160 ml -516 ml medications Current Medications Medications Dose Ordered Sig/Lizabeth Route Start Time Stop Time Status Last Admin Dose Admin Ondansetron HCl 4 mg Q4HP PRN IV 07/22/25 15:00 Nitroglycerin 0.4 mg Q5MINP PRN SL 07/22/25 15:00 Diagnostic Test (Pha) 1 strip ACHS 07/22/25 17:00 08/09/25 11:30 1 STRIP Insulin Human Regular ACHS SC 07/22/25 17:00 08/09/25 11:31 4 UNITS Dextrose 50 ml UD PRN IV 07/22/25 16:30 Acetaminophen 500 mg Q6HP PRN PO 07/23/25 17:45 07/25/25 01:52 500 MG Docusate Sodium 100 mg BID PO 07/23/25 22:00 08/09/25 08:52 100 MG Memantine 5 mg HS PO 07/23/25 22:00 08/08/25 21:20 5 MG Midazolam HCl 100 ml @ 1 mls/hr Q24H IV 07/24/25 02:45 Cancel Fentanyl Citrate 250 ml @ 2.5 mls/hr Q24H IV 07/24/25 02:45 Cancel Azithromycin 250 ml @ 125 mls/hr DAILY IV 07/28/25 10:00 Cancel Hydralazine HCl 10 mg Q6HP PRN IV 07/30/25 16:45 08/02/25 06:40 10 MG Acetylcysteine 200 mg Q8HR IN 08/04/25 22:00 08/09/25 06:16 200 MG Albuterol 2.5 mg Q6HPRN PRN NEB 08/06/25 12:30 Albuterol 2.5 mg Q8H NEB 08/06/25 14:00 08/09/25 06:16 2.5 MG Amiodarone HCl 200 mg Q12HR PO 08/07/25 10:00 08/09/25 08:54 200 MG Apixaban 2.5 mg BID PO 08/07/25 10:00 08/09/25 08:53 2.5 MG Aspirin 81 mg DAILY PO 08/07/25 10:00 08/09/25 08:51 81 MG Atorvastatin Calcium 40 mg HS PO 08/07/25 22:00 08/08/25 21:20 40 MG Empaglifozin 25 mg DAILY PO 08/07/25 10:00 08/09/25 08:52 25 MG Hydrochlorothiazide 25 mg DAILY PO 08/07/25 10:00 08/09/25 08:55 25 MG Metoprolol Tartrate 25 mg BID PO 08/07/25 10:00 08/09/25 08:55 25 MG Lisinopril 2.5 mg DAILY PO 08/08/25 10:00 08/09/25 08:57 2.5 MG objective GENERAL: Alert and oriented x 3. No acute distress. EYES: PERRL, EOMI. Anicteric. HENT: Moist mucous membranes. LUNGS: Crackles to bilateral breath sounds. CARDIOVASCULAR: Irregular rate and rhythm. ABDOMEN: Soft, non-tender and non-distended. EXTREMITIES: No edema. SKIN: Warm, dry. laboratory and microbiology Laboratory Tests 08/08/25 11:24 08/07/25 03:21 Test 08/08/25 11:24 Range/Units Serum Glucose 161 H 74-106 mg/dL Problem List Non ST-elevation myocardial infarction, questionable type 1. Paroxysmal atrial fibrillation/atrial flutter, now NSR (on Eliquis therapy at home). [place] decompensated HFrEF, NYHA Class III. Presence of dual-chamber pacemaker ([employer]). Acute hypoxic respiratory failure. Diabetes mellitus, newly diagnosed. Hypertension. Dyslipidemia. Former smoker/alcoholic. Obesity. Assessment/Plan Continued all current supportive medical care. Amiodarone. Eliquis. Aspirin, Lipitor, Metoprolol. IV antibiotics as ordered. IV Hydralazine for SBP >150. GI prophylactics. Additional plan as per the hospital course. Dietary Evaluation Review Comments: Nutrition Recommendation: 1) EN Glucerna 1.2Cal @ 55ml/hr x 24hr (goal) along with Pro-stat 1 pk TID. Water flush 50ml Q6H if allowed, adjust PRN. TF at goal volume along with Pro-stat provide 1884 kcal (100%), 124 gm protein (91%), and 1263 ml free water(including flush). 2) TPN if NPO >7 days 3) Monitor NPO status, lab values, weight trend, and I/O Expected Outcomes/Goals: Intake to meet >75% estimated needs Lab values to improve FU 2-3 days Plan discussed with: Other ANUPAMA JACOBO MD Aug 09, 2025 12:48
[2025-08-10] VITALS (14 sets, daily range): BP systolic 92–113; BP diastolic 59–70; PULSE 18–89; RESP 16–70; TEMP 97.7–98.9; O2SAT 92–98
--- NOTE | 2025-08-10 10:25 | DVHPN2 ---
Progress Note - Dictate Date Seen: Aug 10, 2025 Has the PT tested + for MRSA If YES, has PT been informed?: No Medical Necessity Reason Pt with a Central, PICC or Fol: No Subjective Mr. Renee is a 80 years old right-handed gentleman with a history of hypertension, diabetes, atrial fibrillation, dementia, obesity, he came to the [facility] on 07/22/2025 with a chief complaint of altered mental status. I have seen and examined the patient in she, I have talked to his nurses sitter, and physical therapist, he is very sleepy, but is oriented to person and place, he knows year, month and date Pupil size: 08/04/2025, 08/05/25: Rt: 3-4mm, Lt: 3mm, 08/06/2025 Rt: 4mm, Lt: 3-4mm, 08/06/2025 Rt: 4mm, Lt: 3-4mm 08/10/2025 Rt: 4mm, Lt: 3-4mm According to ER record, memantine and Eliquis were in his home medication list Urinalysis, 07/22/2025: WBC: 11, urine leukocyte esterase: Negative ABG, 07/26/2025: Combined metabolic and respiratory acidosis Blood culture, 07/22/2025: No growth Blood culture, 07/24/2025: WBC/HB/PLT/MCV, 07/26/2025: 11.9/75/147/97.7 PT/INR/ABG, 07/25/2025: 12.2/1.17/34.7, 07/26/2025: 12.5/1.2/38.4 Na, 07/28/25: 144, 07/29/2025: 147, 07/30/2025: 150, 07/31/2025: 151 08/01/25: 151, 08/04/2025: 154, 08/05/2025: 49, 08/06/2025: 146 BUN/CR, 07/25/2025: 17/1.44 GFR, 07/25/2025: 49, 07/31/2025: 32/0.94 HGB A1c, 07/24/2025: 7.8 TBI/AST/ALT/AP, 07/25/2025: 0.8/45/42/68 TG/HDL/LDL/HDL, 07/24/2025: 100/103/42/47 Vitamin B12, 07/24/25: 1658 TSH, 07/24/2025: 1.34 Chest x-ray, 07/24/2025: Heart is prominent size. There is moderate pulmonary vascular congestion. Dual lead left cardiac device. Enteric tube tip is not well visualized. Endotracheal tube is 4 cm from the de Chest x-ray, 07/26/2025: Lines and tubes in satisfactory position. Increased interstitial prominence. This may represent pulmonary vascular congestion and/or viral pneumonia. Chest x-ray, 07/31/2025: 1. Lines and tubes unchanged. 2. Stable diffuse increased prominence of the pulmonary vasculature CT head, 07/22/2025: No acute intracranial abnormality CT head, 08/01/2025: No evidence of acute intracranial abnormality vital signs Vital Sign Date Time Temp Pulse Resp B/P (MAP) Pulse Ox O2 Delivery O2 Flow Rate FiO2 08/10/25 10:07 Room Air* 0 21 08/10/25 09:10 91/39 08/10/25 09:10 70 08/10/25 08:00 18 08/10/25 06:59 94 08/10/25 04:58 97.8 97.8 Total Intake and Output 08/09/25 08/09/25 08/10/25 15:00 23:00 07:00 Intake Total 850 ml 700 ml Output Total 1100 ml Balance -250 ml 700 ml medications Current Medications Medications Dose Ordered Sig/Lizabeth Route Start Time Stop Time Status Last Admin Dose Admin Ondansetron HCl 4 mg Q4HP PRN IV 07/22/25 15:00 Nitroglycerin 0.4 mg Q5MINP PRN SL 07/22/25 15:00 Diagnostic Test (Pha) 1 strip ACHS 07/22/25 17:00 08/09/25 21:24 1 STRIP Insulin Human Regular ACHS SC 07/22/25 17:00 08/09/25 21:22 3 UNITS Dextrose 50 ml UD PRN IV 07/22/25 16:30 Acetaminophen 500 mg Q6HP PRN PO 07/23/25 17:45 07/25/25 01:52 500 MG Docusate Sodium 100 mg BID PO 07/23/25 22:00 08/10/25 09:08 100 MG Memantine 5 mg HS PO 07/23/25 22:00 08/09/25 21:23 5 MG Midazolam HCl 100 ml @ 1 mls/hr Q24H IV 07/24/25 02:45 Cancel Fentanyl Citrate 250 ml @ 2.5 mls/hr Q24H IV 07/24/25 02:45 Cancel Azithromycin 250 ml @ 125 mls/hr DAILY IV 07/28/25 10:00 Cancel Hydralazine HCl 10 mg Q6HP PRN IV 07/30/25 16:45 08/02/25 06:40 10 MG Acetylcysteine 200 mg Q8HR IN 08/04/25 22:00 08/09/25 06:16 200 MG Albuterol 2.5 mg Q6HPRN PRN NEB 08/06/25 12:30 Albuterol 2.5 mg Q8H NEB 08/06/25 14:00 08/09/25 06:16 2.5 MG Amiodarone HCl 200 mg Q12HR PO 08/07/25 10:00 08/10/25 09:05 200 MG Apixaban 2.5 mg BID PO 08/07/25 10:00 08/10/25 09:09 2.5 MG Aspirin 81 mg DAILY PO 08/07/25 10:00 08/10/25 09:09 81 MG Atorvastatin Calcium 40 mg HS PO 08/07/25 22:00 08/09/25 21:23 40 MG Empaglifozin 25 mg DAILY PO 08/07/25 10:00 08/10/25 09:08 25 MG Hydrochlorothiazide 25 mg DAILY PO 08/07/25 10:00 08/09/25 08:55 25 MG Metoprolol Tartrate 25 mg BID PO 08/07/25 10:00 08/09/25 08:55 25 MG Lisinopril 2.5 mg DAILY PO 08/08/25 10:00 08/09/25 08:57 2.5 MG objective The patient is well-nourished and well-developed with no distress. MENTAL STATUS: Subjective CRANIAL NERVES: Pupils are round and reactive. There are conjugated eye movement, no ptosis, no abnormal vascular dilatation or skin secretion. No signs of facial weakness SENSATION: Responses to light touch in the pinprick MOTOR: Normal tone in the upper and lower extremity. Normal muscle bulk. No fasciculations. Moves the arms and the legs REFLEXES: Deep tendon reflexes are symmetrical. No pathological reflexes. CEREBELLAR/COORDINATION: Deferred GAIT/STATION: deferred laboratory and microbiology Laboratory Tests 08/08/25 11:24 08/07/25 03:21 Test 08/08/25 11:24 Range/Units Serum Glucose 161 H 74-106 mg/dL Problem List Coma, resolved Metabolic encephalopathy Toxic encephalopathy Hypoxic encephalopathy Possible community-acquired pneumonia vs a typical viral pneumonia Possible drug fever Rule out intracranial infection Hypernatremia Cognitive dysfunction, MCI. He may not have dementia AFib Coagulopathy secondary to anticoagulation treatment Acute respiratory failure, improving Fever Possible community-acquired pneumonia vs a typical viral pneumonia Possible drug fever Anisocoria, unclear clinical significance Assessment/Plan Monitoring Supportive treatment Telemetry Oxygen IV antibiotics Aspirin 81 mg daily Eliquis 2.5 mg b.i.d. Physical therapy Infectious disease consultation More recommendation per clinical course This medical document was created using an electronic medical record system with [employer] dictation system. Although this document has been carefully reviewed, there may still be some phonetic and typographical errors. These areas are purely typographical due to imperfections of the software programs, and do not reflect any compromise in the patient's medical care. Prognosis poor Dietary Evaluation Review Comments: Nutrition Recommendation: 1) EN Glucerna 1.2Cal @ 55ml/hr x 24hr (goal) along with Pro-stat 1 pk TID. Water flush 50ml Q6H if allowed, adjust PRN. TF at goal volume along with Pro-stat provide 1884 kcal (100%), 124 gm protein (91%), and 1263 ml free water(including flush). 2) TPN if NPO >7 days 3) Monitor NPO status, lab values, weight trend, and I/O Expected Outcomes/Goals: Intake to meet >75% estimated needs Lab values to improve FU 2-3 days Plan discussed with: Other CHRISTOPHER BLACK MD Aug 10, 2025 10:25
[2025-08-10 10:31] LABS: Hematocrit 46.7 % (41.0-53.0); Hemoglobin 15.6 g/dL (13.5-17.5); Mean Corpuscular Hemoglobin 31.7 pg (28.0-32.0); Mean Corpuscular Volume 95.0 fL (80.0-100.0); Nucleated Red Blood Cells % 0.1 %
[2025-08-10 10:44] LABS: Anion Gap 9 (5-15); Calcium 9.4 mg/dL (8.7-10.4); Carbon Dioxide 30 mmol/L (20-31)
[2025-08-10 10:49] LABS: BUN/Creatinine Ratio 12.2 (10.0-20.0); Blood Urea Nitrogen 12 mg/dL (9-23)
[2025-08-10 10:50] LABS: Sodium 133 mmol/L (136-145)
[2025-08-10 10:51] LABS: Chloride 94 mmol/L (98-107); Glucose 190 mg/dL (74-106)
[2025-08-10 10:52] LABS: Potassium 2.5 mmol/L (3.5-5.1)
--- NOTE | 2025-08-10 12:08 | DVHPN2 ---
Subjective Patient denies any symptoms at this time. Reviewed: Care Plan, H&P, Labs, Medications, Previous Orders, Radiology, Other (Consultations) Changes from previous H/P or p: No Changes General: Per HPI Objective Vitals Vital Signs Date Time Temp Pulse Resp B/P (MAP) Pulse Ox O2 Delivery O2 Flow Rate FiO2 08/10/25 10:07 Room Air* 0 21 08/10/25 09:10 91/39 08/10/25 09:10 70 08/10/25 08:00 18 08/10/25 06:59 94 08/10/25 04:58 97.8 97.8 Intake/Output Intake and Output 08/10/25 07:00 Intake Total 1550 ml Output Total 1100 ml Balance 450 ml Intake Oral 1550 ml Output Urine Total 1100 ml # Voids 6 # Bowel Movements 2 General Appearance: Alert, Oriented X3, Cooperative HEENT: Atraumatic, PERRLA, Other (Right IJ central line with no signs of bleeding/infection) Lungs: Clear to auscultation, Normal air movement Chest/Breasts: Other (Pacemaker in place) Cardiovascular: Normal S1, Normal S2, Other (V paced) Abdomen: Normal bowel sounds, Soft Genitourinary: No Apparent Abnormalities ([place] catheter) Musculoskeletal: Weak motor strength RUE, Weak motor strength LUE, Weak motor strength RLE, Weak motor strength LLE Neuro: Cranial nerves 3-12 NL Skin: Dry, Intact Psych/Mental Status: Mental status NL, Mood NL Medications Current Medications Medications Dose Ordered Sig/Lizabeth Route Start Time Stop Time Status Last Admin Dose Admin Ondansetron HCl 4 mg Q4HP PRN IV 07/22/25 15:00 Nitroglycerin 0.4 mg Q5MINP PRN SL 07/22/25 15:00 Diagnostic Test (Pha) 1 strip ACHS 07/22/25 17:00 08/10/25 11:37 1 STRIP Insulin Human Regular ACHS SC 07/22/25 17:00 08/10/25 11:38 3 UNITS Dextrose 50 ml UD PRN IV 07/22/25 16:30 Acetaminophen 500 mg Q6HP PRN PO 07/23/25 17:45 07/25/25 01:52 500 MG Memantine 5 mg HS PO 07/23/25 22:00 08/09/25 21:23 5 MG Midazolam HCl 100 ml @ 1 mls/hr Q24H IV 07/24/25 02:45 Cancel Fentanyl Citrate 250 ml @ 2.5 mls/hr Q24H IV 07/24/25 02:45 Cancel Azithromycin 250 ml @ 125 mls/hr DAILY IV 07/28/25 10:00 Cancel Hydralazine HCl 10 mg Q6HP PRN IV 07/30/25 16:45 08/02/25 06:40 10 MG Albuterol 2.5 mg Q6HPRN PRN NEB 08/06/25 12:30 Albuterol 2.5 mg Q8H NEB 08/06/25 14:00 08/09/25 06:16 2.5 MG Amiodarone HCl 200 mg Q12HR PO 08/07/25 10:00 08/10/25 09:05 200 MG Apixaban 2.5 mg BID PO 08/07/25 10:00 08/10/25 09:09 2.5 MG Aspirin 81 mg DAILY PO 08/07/25 10:00 08/10/25 09:09 81 MG Atorvastatin Calcium 40 mg HS PO 08/07/25 22:00 08/09/25 21:23 40 MG Empaglifozin 25 mg DAILY PO 08/07/25 10:00 08/10/25 09:08 25 MG Lisinopril 2.5 mg DAILY PO 08/08/25 10:00 08/09/25 08:57 2.5 MG Metoprolol Tartrate 12.5 mg BID PO 08/10/25 22:00 Potassium Chloride 16 meq DAILY PO 08/11/25 10:00 UNV Laboratory Results Laboratory Tests 08/10/25 10:08 Chemistry Test 08/10/25 10:08 Calcium Level 9.4 mg/dL (8.7-10.4) Urinalysis Test 08/08/25 15:40 Urine Color Colorless (Yellow) Urine Clarity Clear (Clear) Urine pH 6.0 (5.0-9.0) Urine Specific [place] 1.024 (1.001-1.035) Urine Protein Negative (Negative) Urine Ketones Negative (Negative) Urine Blood 3+ /uL (Negative) H Urine Nitrite Negative (Negative) Urine Bilirubin Negative (Negative) Urine Urobilinogen Normal mg/dL (Negative) Urine Leukocyte Esterase Negative /uL (Negative) Urine RBC 244 /hpf (0 - 3) Urine Microscopic WBC 4 /HPF (0-3) H Urine Squamous Epithelial Cells Few /hpf (<5) Urine Bacteria None seen /hpf (None Seen) Urine Mucus Few (None Seen) Urine Glucose 4+ mg/dL (Normal) H Microbiology Microbiology Date/Time Source Procedure Growth Status 07/27/25 11:21 Blood Blood Culture - Final NO GROWTH AFTER 5 DAYS OF INCUBATION. Complete 07/24/25 03:35 Urine - [place] Urine Culture - Final Complete 07/24/25 03:26 Trachea Gram Stain - Final Complete 07/24/25 03:26 Trachea Respiratory Culture - Final Complete Labs and/or images reviewed: Labs reviewed by me, Image(s) reviewed by me Assessment/Plan Assessment/Plan Impression: -acute metabolic encephalopathy -acute hypoxic respiratory failure -questionable acute seizure activity with postictal state -acute on chronic diastolic heart failure -atrial flutter with controlled rate -recent placement of dual-chamber pacemaker -? History of ETOH -acute kidney injury, vasomotor nephropathy -obesity -primary hypertension -NSTEMI, probably type 2 -rhabdomyolysis Plan: Events: Patient is assessed sitting in the chair. On room air. Blood pressure noted to be marginal. Repeat BNP reveals potassium 2.5. -K replacement -decrease metoprolol tartrate to 12.5 mg p.o. b.i.d.. Stop hydrochlorothiazide. Continue low-dose lisinopril -potassium replacement -physical therapy -social service consultation for transfer to [facility] Total time spent with patient discussing and formulating plan of care: 35 minutes. This medical document was created using an electronic medical record system with [employer] dictation system. Although this document has been carefully reviewed, there may still be some phonetic and typographical errors. These areas are purely typographical due to imperfections of the software programs, and do not reflect any compromise in the patient's medical care. Plan discussed with: Patient, Other (RN) My Orders Orders - FLORY OSMAN NP Procedure Category Date Status Time Discontinue [place] ALEX 08/09/25 In Process Catheter 12:55 Discharge DISCHARGE 08/09/25 Transmitted 12:55 Imaging Transfer ORDERS 08/09/25 Transmitted Request 13:10 Metoprolol Tartrate PHA 08/10/25 In Process Tablet (Lopressor Ta 22:00 Potassium Chloride PHA 08/10/25 Logged (Potassium Chloride). 11:45 Potassium Er Tablet PHA 08/11/25 Logged (Klor-Con Tablet) 10:00 Potassium LAB 08/11/25 Verified 04:00 Magnesium LAB 08/11/25 Verified 04:00 Date of Service: Aug 10, 2025 Billing Provider: FLORY OSMAN NP Common Visit Codes: [id number] INP/OBS CARE(HIGH) FLORY OSMAN NP Aug 10, 2025 12:08
[2025-08-10] MEDS: POTASSIUM CHLORIDE 60 MEQ, LIDOCAINE 1% (LOCAL ANESTH.) 6 ML in SODIUM CHL 0.9% 500 ML IV ONE (13:38)
--- NOTE | 2025-08-10 20:56 | DVHPN2 ---
Progress Note - Dictate Date Seen: Aug 10, 2025 Has the PT tested + for MRSA If YES, has PT been informed?: No Medical Necessity Reason Pt with a Central, PICC or Fol: No Subjective Patient was seen and evaluated in follow up. Patient remains in a sleepy state. Sitter remains at bedside. NA 133, K 2.5, CL 94. Telemetry reviewed vital signs Vital Sign Date Time Temp Pulse Resp B/P (MAP) Pulse Ox O2 Delivery O2 Flow Rate FiO2 08/10/25 10:07 Room Air* 0 21 08/10/25 09:10 91/39 08/10/25 09:10 70 08/10/25 08:00 18 08/10/25 06:59 94 08/10/25 04:58 97.8 97.8 Total Intake and Output 08/09/25 08/09/25 08/10/25 15:00 23:00 07:00 Intake Total 850 ml 700 ml Output Total 1100 ml Balance -250 ml 700 ml medications Current Medications Medications Dose Ordered Sig/Lizabeth Route Start Time Stop Time Status Last Admin Dose Admin Ondansetron HCl 4 mg Q4HP PRN IV 07/22/25 15:00 Nitroglycerin 0.4 mg Q5MINP PRN SL 07/22/25 15:00 Diagnostic Test (Pha) 1 strip ACHS 07/22/25 17:00 08/10/25 11:37 1 STRIP Insulin Human Regular ACHS SC 07/22/25 17:00 08/10/25 11:38 3 UNITS Dextrose 50 ml UD PRN IV 07/22/25 16:30 Acetaminophen 500 mg Q6HP PRN PO 07/23/25 17:45 07/25/25 01:52 500 MG Memantine 5 mg HS PO 07/23/25 22:00 08/09/25 21:23 5 MG Midazolam HCl 100 ml @ 1 mls/hr Q24H IV 07/24/25 02:45 Cancel Fentanyl Citrate 250 ml @ 2.5 mls/hr Q24H IV 07/24/25 02:45 Cancel Azithromycin 250 ml @ 125 mls/hr DAILY IV 07/28/25 10:00 Cancel Hydralazine HCl 10 mg Q6HP PRN IV 07/30/25 16:45 08/02/25 06:40 10 MG Albuterol 2.5 mg Q6HPRN PRN NEB 08/06/25 12:30 Albuterol 2.5 mg Q8H NEB 08/06/25 14:00 08/09/25 06:16 2.5 MG Amiodarone HCl 200 mg Q12HR PO 08/07/25 10:00 08/10/25 09:05 200 MG Apixaban 2.5 mg BID PO 08/07/25 10:00 08/10/25 09:09 2.5 MG Aspirin 81 mg DAILY PO 08/07/25 10:00 08/10/25 09:09 81 MG Atorvastatin Calcium 40 mg HS PO 08/07/25 22:00 08/09/25 21:23 40 MG Empaglifozin 25 mg DAILY PO 08/07/25 10:00 08/10/25 09:08 25 MG Lisinopril 2.5 mg DAILY PO 08/08/25 10:00 08/09/25 08:57 2.5 MG Metoprolol Tartrate 12.5 mg BID PO 08/10/25 22:00 Potassium Chloride 16 meq DAILY PO 08/11/25 10:00 UNV objective GENERAL: Alert and oriented x 3. No acute distress. EYES: PERRL, EOMI. Anicteric. HENT: Moist mucous membranes. LUNGS: Crackles to bilateral breath sounds. CARDIOVASCULAR: Irregular rate and rhythm. ABDOMEN: Soft, non-tender and non-distended. EXTREMITIES: No edema. SKIN: Warm, dry. laboratory and microbiology Laboratory Tests 08/10/25 10:08 Test 08/10/25 10:08 Range/Units Serum Glucose 190 H 74-106 mg/dL Problem List Non ST-elevation myocardial infarction, questionable type 1. Paroxysmal atrial fibrillation/atrial flutter, now NSR (on Eliquis therapy at home). [place] decompensated HFrEF, NYHA Class III. Presence of dual-chamber pacemaker ([employer]). Acute hypoxic respiratory failure. Diabetes mellitus, newly diagnosed. Hypertension. Dyslipidemia. Former smoker/alcoholic. Obesity. Assessment/Plan Continued all current supportive medical care. Amiodarone. Eliquis. Aspirin, Lipitor, Metoprolol. IV antibiotics as ordered. IV Hydralazine for SBP >150. GI prophylactics. Additional plan as per the hospital course. Dietary Evaluation Review Comments: Nutrition Recommendation: 1) EN Glucerna 1.2Cal @ 55ml/hr x 24hr (goal) along with Pro-stat 1 pk TID. Water flush 50ml Q6H if allowed, adjust PRN. TF at goal volume along with Pro-stat provide 1884 kcal (100%), 124 gm protein (91%), and 1263 ml free water(including flush). 2) TPN if NPO >7 days 3) Monitor NPO status, lab values, weight trend, and I/O Expected Outcomes/Goals: Intake to meet >75% estimated needs Lab values to improve FU 2-3 days Plan discussed with: Patient ANUPAMA JACOBO MD Aug 10, 2025 12:02
[2025-08-10] MEDS: METOPROLOL TARTRATE 25 MG TAB PO SCH (22:00)
--- NOTE | 2025-08-10 22:04 | DVHPN2 ---
Subjective DOS: 08/10/2025 Patient seen and examined at bedside. Remains on room air Overnight events reviewed. Reviewed: Care Plan, H&P, Labs, Medications, Previous Orders, Radiology, Other (Consultations) Changes from previous H/P or p: No Changes General: Per HPI Objective Vitals Vital Signs Date Time Temp Pulse Resp B/P (MAP) Pulse Ox O2 Delivery O2 Flow Rate FiO2 08/10/25 21:25 89 18 92/61 97 3.0 32 08/10/25 21:00 97.7 97.7 08/10/25 10:07 Room Air* Intake/Output Intake and Output 08/10/25 07:00 Intake Total 1550 ml Output Total 1100 ml Balance 450 ml Intake Oral 1550 ml Output Urine Total 1100 ml # Voids 6 # Bowel Movements 2 Exam Gen.: Patient lying in bed in no apparent distress. On room air. Head: Normocephalic, atraumatic. Eyes: EOMI/PERRLA. Ears: Normal hearing. Normal anatomy. Neck/trachea: Trachea midline, supple. Nose: Normal external anatomy. Mouth: Moist mucous membranes. Chest: Decreased air entry bilaterally. No wheezing or rhonchi. Cardiovascular: Positive S1, positive S2. Regular rate and rhythm. Abdomen: Positive bowel sounds in all 4 quadrants. Soft, non-tender, non- distended. : Deferred. Rectal: Deferred. Skin: Warm, dry. Intact. Extremities: 2+ radial pulses bilaterally. No lower extremity edema. Neuro: Awake, alert. No gross motor or sensory deficits. Cranial nerves II through XII intact. Gait not assessed. General Appearance: Alert, Oriented X3, Cooperative HEENT: Atraumatic, PERRLA, Other (Right IJ central line with no signs of bleeding/infection) Lungs: Clear to auscultation, Normal air movement Chest/Breasts: Other (Pacemaker in place) Cardiovascular: Normal S1, Normal S2, Other (V paced) Abdomen: Normal bowel sounds, Soft Genitourinary: No Apparent Abnormalities ([place] catheter) Musculoskeletal: Weak motor strength RUE, Weak motor strength LUE, Weak motor strength RLE, Weak motor strength LLE Neuro: Cranial nerves 3-12 NL Skin: Dry, Intact Psych/Mental Status: Mental status NL, Mood NL Medications Current Medications Medications Dose Ordered Sig/Lizabeth Route Start Time Stop Time Status Last Admin Dose Admin Ondansetron HCl 4 mg Q4HP PRN IV 07/22/25 15:00 Nitroglycerin 0.4 mg Q5MINP PRN SL 07/22/25 15:00 Diagnostic Test (Pha) 1 strip ACHS 07/22/25 17:00 08/10/25 16:47 1 STRIP Insulin Human Regular ACHS SC 07/22/25 17:00 08/10/25 17:08 2 UNITS Dextrose 50 ml UD PRN IV 07/22/25 16:30 Acetaminophen 500 mg Q6HP PRN PO 07/23/25 17:45 07/25/25 01:52 500 MG Memantine 5 mg HS PO 07/23/25 22:00 08/09/25 21:23 5 MG Midazolam HCl 100 ml @ 1 mls/hr Q24H IV 07/24/25 02:45 Cancel Fentanyl Citrate 250 ml @ 2.5 mls/hr Q24H IV 07/24/25 02:45 Cancel Azithromycin 250 ml @ 125 mls/hr DAILY IV 07/28/25 10:00 Cancel Hydralazine HCl 10 mg Q6HP PRN IV 07/30/25 16:45 08/02/25 06:40 10 MG Albuterol 2.5 mg Q6HPRN PRN NEB 08/06/25 12:30 Albuterol 2.5 mg Q8H NEB 08/06/25 14:00 08/10/25 18:08 2.5 MG Amiodarone HCl 200 mg Q12HR PO 08/07/25 10:00 08/10/25 09:05 200 MG Apixaban 2.5 mg BID PO 08/07/25 10:00 08/10/25 09:09 2.5 MG Aspirin 81 mg DAILY PO 08/07/25 10:00 08/10/25 09:09 81 MG Atorvastatin Calcium 40 mg HS PO 08/07/25 22:00 08/09/25 21:23 40 MG Empaglifozin 25 mg DAILY PO 08/07/25 10:00 08/10/25 09:08 25 MG Lisinopril 2.5 mg DAILY PO 08/08/25 10:00 08/09/25 08:57 2.5 MG Metoprolol Tartrate 12.5 mg BID PO 08/10/25 22:00 Potassium Chloride 16 meq DAILY PO 08/11/25 10:00 Laboratory Results Laboratory Tests 08/10/25 10:08 Chemistry Test 08/10/25 10:08 Calcium Level 9.4 mg/dL (8.7-10.4) Urinalysis Test 08/08/25 15:40 Urine Color Colorless (Yellow) Urine Clarity Clear (Clear) Urine pH 6.0 (5.0-9.0) Urine Specific [place] 1.024 (1.001-1.035) Urine Protein Negative (Negative) Urine Ketones Negative (Negative) Urine Blood 3+ /uL (Negative) H Urine Nitrite Negative (Negative) Urine Bilirubin Negative (Negative) Urine Urobilinogen Normal mg/dL (Negative) Urine Leukocyte Esterase Negative /uL (Negative) Urine RBC 244 /hpf (0 - 3) Urine Microscopic WBC 4 /HPF (0-3) H Urine Squamous Epithelial Cells Few /hpf (<5) Urine Bacteria None seen /hpf (None Seen) Urine Mucus Few (None Seen) Urine Glucose 4+ mg/dL (Normal) H Microbiology Microbiology Date/Time Source Procedure Growth Status 07/27/25 11:21 Blood Blood Culture - Final NO GROWTH AFTER 5 DAYS OF INCUBATION. Complete 07/24/25 03:35 Urine - [place] Urine Culture - Final Complete 07/24/25 03:26 Trachea Gram Stain - Final Complete 07/24/25 03:26 Trachea Respiratory Culture - Final Complete Assessment/Plan Assessment/Plan Impression: Acute hypoxic respiratory failure Dependence on supplemental oxygen S/p cardiac arrest Pulmonary congestion Congestive heart failure Obesity Events: Improved O2 requirements On room air No distress Dyspnea on exertion Improving mentation Central line removed. Midline in place. Remains off pressors, hemodynamically stable. Chest x-ray on 08/08/25 reveals stable-appearing moderate pulmonary vascular congestion. Aspiration risk. Head of bed elevation Aspiration precautions Continue bronchodilators/Mucomyst Chest physiotherapy Continue antibiotics Incentive spirometry Monitor blood pressure - currently soft Amiodarone PO/Eliquis/metoprolol for AFib Accu-Cheks, ISS. Protonix for GI ppx Tube feeds via NGT for nutritional support Physical therapy, max assist. Disposition per hospitalist. Patient is awaiting bed at the [facility]. Labs and imaging reviewed. Rest of plan as noted below. Plan: S/p extubation on 08/03/25 Supplemental oxygen PRN Titrate to keep O2 sats above 92%. Head of bed elevation Aspiration precautions Continue bronchodilators Continue antibiotics Incentive spirometry Accu-Cheks, ISS Tube feeds for nutritional support Monitor renal function. Monitor electrolytes. Supplement as necessary. Monitor ins and outs. Recommend diet and lifestyle modifications for weight reduction Obesity complicates all care DVT prophylaxis. Prognosis: Guarded given patient's multiple co-morbidities. Rest of plan per hospitalist and other consultants. Thank you, HERMINIA Sweeney, for allowing me to participate in this patient's care. Further recommendations will depend on the patient's clinical course. Please do not hesitate to contact me if you have any questions or concerns. This medical document was created using an electronic medical record system with [employer] dictation system. Although these documentations are being carefully reviewed, there may still be some phonetic and typographical changes. The errors are purely typographical, due to imperfection on the software program, and do not reflect any compromise in the patient's medical care. Plan discussed with: Patient, Other ([place]) Visit Coding Pulmonary Billing Provider: RUBI ASIF MD Date of Service if different f: Aug 10, 2025 Common Visit Codes: [id number] INP/OBS CARE(HIGH) RUBI ASIF MD Aug 10, 2025 22:04
[2025-08-11] VITALS (10 sets, daily range): BP systolic 97–120; BP diastolic 58–69; PULSE 68–98; RESP 18–20; TEMP 97.2–98.1; O2SAT 94–100
[2025-08-11 07:27] LABS: Potassium 3.3 mmol/L (3.5-5.1)
[2025-08-11 07:28] LABS: Magnesium 2.3 mg/dL (1.6-2.6)
[2025-08-11] MEDS: POTASSIUM CHLORIDE 8 MEQ TAB PO SCH (09:51)
--- NOTE | 2025-08-11 10:02 | DVHPN2 ---
Subjective Patient denies any symptoms at this time. Reviewed: Care Plan, H&P, Labs, Medications, Previous Orders, Radiology, Other (Consultations) Changes from previous H/P or p: No Changes General: Per HPI Objective Vitals Vital Signs Date Time Temp Pulse Resp B/P (MAP) Pulse Ox O2 Delivery O2 Flow Rate FiO2 08/11/25 09:52 72 85/53 08/11/25 05:00 98.1 19 94 98.1 08/10/25 21:25 3.0 32 08/10/25 20:00 Room Air* Intake/Output Intake and Output 08/11/25 07:00 Intake Total 800 ml Balance 800 ml Intake Oral 800 ml # Voids 5 # Bowel Movements 1 General Appearance: Alert, Oriented X3, Cooperative HEENT: Atraumatic, PERRLA, Other (Right IJ central line with no signs of bleeding/infection) Lungs: Clear to auscultation, Normal air movement Chest/Breasts: Other (Pacemaker in place) Cardiovascular: Normal S1, Normal S2, Other (V paced) Abdomen: Normal bowel sounds, Soft Genitourinary: No Apparent Abnormalities ([place] catheter) Musculoskeletal: Weak motor strength RUE, Weak motor strength LUE, Weak motor strength RLE, Weak motor strength LLE Neuro: Cranial nerves 3-12 NL Skin: Dry, Intact Psych/Mental Status: Mental status NL, Mood NL Medications Current Medications Medications Dose Ordered Sig/Lizabeth Route Start Time Stop Time Status Last Admin Dose Admin Ondansetron HCl 4 mg Q4HP PRN IV 07/22/25 15:00 Nitroglycerin 0.4 mg Q5MINP PRN SL 07/22/25 15:00 Diagnostic Test (Pha) 1 strip ACHS 07/22/25 17:00 08/11/25 06:18 1 STRIP Insulin Human Regular ACHS SC 07/22/25 17:00 08/11/25 06:17 2 UNITS Dextrose 50 ml UD PRN IV 07/22/25 16:30 Acetaminophen 500 mg Q6HP PRN PO 07/23/25 17:45 07/25/25 01:52 500 MG Memantine 5 mg HS PO 07/23/25 22:00 08/10/25 22:40 5 MG Midazolam HCl 100 ml @ 1 mls/hr Q24H IV 07/24/25 02:45 Cancel Fentanyl Citrate 250 ml @ 2.5 mls/hr Q24H IV 07/24/25 02:45 Cancel Azithromycin 250 ml @ 125 mls/hr DAILY IV 07/28/25 10:00 Cancel Hydralazine HCl 10 mg Q6HP PRN IV 07/30/25 16:45 08/02/25 06:40 10 MG Albuterol 2.5 mg Q6HPRN PRN NEB 08/06/25 12:30 Albuterol 2.5 mg Q8H NEB 08/06/25 14:00 08/11/25 06:53 2.5 MG Amiodarone HCl 200 mg Q12HR PO 08/07/25 10:00 08/11/25 09:49 200 MG Apixaban 2.5 mg BID PO 08/07/25 10:00 08/11/25 09:49 2.5 MG Aspirin 81 mg DAILY PO 08/07/25 10:00 08/11/25 09:50 81 MG Atorvastatin Calcium 40 mg HS PO 08/07/25 22:00 08/10/25 22:40 40 MG Empaglifozin 25 mg DAILY PO 08/07/25 10:00 08/11/25 09:52 25 MG Metoprolol Tartrate 12.5 mg BID PO 08/10/25 22:00 Potassium Chloride 16 meq DAILY PO 08/11/25 10:00 08/11/25 09:51 16 MEQ Laboratory Results Laboratory Tests 08/10/25 10:08 08/11/25 06:55 Chemistry Test 08/10/25 10:08 08/11/25 06:55 Calcium Level 9.4 mg/dL (8.7-10.4) Magnesium Level 2.3 mg/dL (1.6-2.6) Urinalysis Test 08/08/25 15:40 Urine Color Colorless (Yellow) Urine Clarity Clear (Clear) Urine pH 6.0 (5.0-9.0) Urine Specific [place] 1.024 (1.001-1.035) Urine Protein Negative (Negative) Urine Ketones Negative (Negative) Urine Blood 3+ /uL (Negative) H Urine Nitrite Negative (Negative) Urine Bilirubin Negative (Negative) Urine Urobilinogen Normal mg/dL (Negative) Urine Leukocyte Esterase Negative /uL (Negative) Urine RBC 244 /hpf (0 - 3) Urine Microscopic WBC 4 /HPF (0-3) H Urine Squamous Epithelial Cells Few /hpf (<5) Urine Bacteria None seen /hpf (None Seen) Urine Mucus Few (None Seen) Urine Glucose 4+ mg/dL (Normal) H Microbiology Microbiology Date/Time Source Procedure Growth Status 07/27/25 11:21 Blood Blood Culture - Final NO GROWTH AFTER 5 DAYS OF INCUBATION. Complete 07/24/25 03:35 Urine - [place] Urine Culture - Final Complete 07/24/25 03:26 Trachea Gram Stain - Final Complete 07/24/25 03:26 Trachea Respiratory Culture - Final Complete Labs and/or images reviewed: Labs reviewed by me, Image(s) reviewed by me Assessment/Plan Assessment/Plan Impression: -acute metabolic encephalopathy -acute hypoxic respiratory failure -questionable acute seizure activity with postictal state -acute on chronic diastolic heart failure -atrial flutter with controlled rate -recent placement of dual-chamber pacemaker -? History of ETOH -acute kidney injury, vasomotor nephropathy -obesity -primary hypertension -NSTEMI, probably type 2 -rhabdomyolysis Plan: Events: Repeat potassium improved at 3.3. Continued replete. Patient's blood pressure 85/53 this morning despite decreasing guideline directed medical therapy doses yesterday. We will hold THADDEUS inhibitors at this time. Hold metoprolol tartrate today, re-evaluate for restarting tonight -K replacement -potassium replacement -physical therapy: Noted to ambulate 30 ft. Recommendations also for [facility] facility. -social service consultation for transfer to [facility]. At this time hold off on [facility] facility evaluation given blood pressure is marginal. Total time spent with patient discussing and formulating plan of care: 35 minutes. This medical document was created using an electronic medical record system with [employer] dictation system. Although this document has been carefully reviewed, there may still be some phonetic and typographical errors. These areas are purely typographical due to imperfections of the software programs, and do not reflect any compromise in the patient's medical care. Plan discussed with: Patient, Other (RN) My Orders Orders - FLORY OSMAN EMBOSSER APPRENTICE Procedure Category Date Status Time Metoprolol Tartrate PHA 08/10/25 In Process Tablet (Lopressor Ta 22:00 Potassium Er Tablet PHA 08/11/25 In Process (Klor-Con Tablet) 10:00 Mrsa Screen MIMI 08/10/25 In Process 22:02 Date of Service: Aug 11, 2025 Billing Provider: FLORY OSMAN NP Common Visit Codes: [id number] INP/OBS CARE(HIGH) FLORY OSMAN NP Aug 11, 2025 10:02
--- NOTE | 2025-08-11 23:01 | DVHPN2 ---
Subjective DOS: 08/11/2025 Patient seen and examined at bedside. Remains on room air Overnight events reviewed. Reviewed: Care Plan, H&P, Labs, Medications, Previous Orders, Radiology, Other (Consultations) Changes from previous H/P or p: No Changes General: Per HPI Objective Vitals Vital Signs Date Time Temp Pulse Resp B/P (MAP) Pulse Ox O2 Delivery O2 Flow Rate FiO2 08/11/25 22:00 70 104/60 08/11/25 21:32 96 Room Air 08/11/25 21:32 0 21 21 08/11/25 16:44 98.1 19 98.1 Intake/Output Intake and Output 08/11/25 06:59 Intake Total 800 ml Balance 800 ml Intake Oral 800 ml # Voids 5 # Bowel Movements 1 Exam Gen.: Patient lying in bed in no apparent distress. On room air. Head: Normocephalic, atraumatic. Eyes: EOMI/PERRLA. Ears: Normal hearing. Normal anatomy. Neck/trachea: Trachea midline, supple. Nose: Normal external anatomy. Mouth: Moist mucous membranes. Chest: Decreased air entry bilaterally. No wheezing or rhonchi. Cardiovascular: Positive S1, positive S2. Regular rate and rhythm. Abdomen: Positive bowel sounds in all 4 quadrants. Soft, non-tender, non- distended. : Deferred. Rectal: Deferred. Skin: Warm, dry. Intact. Extremities: 2+ radial pulses bilaterally. No lower extremity edema. Neuro: Awake, alert. No gross motor or sensory deficits. Cranial nerves II through XII intact. Gait not assessed. General Appearance: Alert, Oriented X3, Cooperative HEENT: Atraumatic, PERRLA, Other (Right IJ central line with no signs of bleeding/infection) Lungs: Clear to auscultation, Normal air movement Chest/Breasts: Other (Pacemaker in place) Cardiovascular: Normal S1, Normal S2, Other (V paced) Abdomen: Normal bowel sounds, Soft Genitourinary: No Apparent Abnormalities ([place] catheter) Musculoskeletal: Weak motor strength RUE, Weak motor strength LUE, Weak motor strength RLE, Weak motor strength LLE Neuro: Cranial nerves 3-12 NL Skin: Dry, Intact Psych/Mental Status: Mental status NL, Mood NL Medications Current Medications Medications Dose Ordered Sig/Lizabeth Route Start Time Stop Time Status Last Admin Dose Admin Ondansetron HCl 4 mg Q4HP PRN IV 07/22/25 15:00 Nitroglycerin 0.4 mg Q5MINP PRN SL 07/22/25 15:00 Diagnostic Test (Pha) 1 strip ACHS 07/22/25 17:00 08/11/25 22:37 1 STRIP Insulin Human Regular ACHS SC 07/22/25 17:00 08/11/25 22:45 2 UNITS Dextrose 50 ml UD PRN IV 07/22/25 16:30 Acetaminophen 500 mg Q6HP PRN PO 07/23/25 17:45 08/11/25 22:36 500 MG Memantine 5 mg HS PO 07/23/25 22:00 08/11/25 22:36 5 MG Midazolam HCl 100 ml @ 1 mls/hr Q24H IV 07/24/25 02:45 Cancel Fentanyl Citrate 250 ml @ 2.5 mls/hr Q24H IV 07/24/25 02:45 Cancel Azithromycin 250 ml @ 125 mls/hr DAILY IV 07/28/25 10:00 Cancel Hydralazine HCl 10 mg Q6HP PRN IV 07/30/25 16:45 08/02/25 06:40 10 MG Albuterol 2.5 mg Q6HPRN PRN NEB 08/06/25 12:30 Albuterol 2.5 mg Q8H NEB 08/06/25 14:00 08/11/25 06:53 2.5 MG Amiodarone HCl 200 mg Q12HR PO 08/07/25 10:00 08/11/25 22:35 200 MG Apixaban 2.5 mg BID PO 08/07/25 10:00 08/11/25 22:36 2.5 MG Aspirin 81 mg DAILY PO 08/07/25 10:00 08/11/25 09:50 81 MG Atorvastatin Calcium 40 mg HS PO 08/07/25 22:00 08/11/25 22:36 40 MG Empaglifozin 25 mg DAILY PO 08/07/25 10:00 08/11/25 09:52 25 MG Metoprolol Tartrate 12.5 mg BID PO 08/10/25 22:00 Potassium Chloride 16 meq DAILY PO 08/11/25 10:00 08/11/25 09:51 16 MEQ Laboratory Results Laboratory Tests 08/10/25 10:08 08/11/25 06:55 Chemistry Test 08/11/25 06:55 Magnesium Level 2.3 mg/dL (1.6-2.6) Urinalysis Test 08/08/25 15:40 Urine Color Colorless (Yellow) Urine Clarity Clear (Clear) Urine pH 6.0 (5.0-9.0) Urine Specific [place] 1.024 (1.001-1.035) Urine Protein Negative (Negative) Urine Ketones Negative (Negative) Urine Blood 3+ /uL (Negative) H Urine Nitrite Negative (Negative) Urine Bilirubin Negative (Negative) Urine Urobilinogen Normal mg/dL (Negative) Urine Leukocyte Esterase Negative /uL (Negative) Urine RBC 244 /hpf (0 - 3) Urine Microscopic WBC 4 /HPF (0-3) H Urine Squamous Epithelial Cells Few /hpf (<5) Urine Bacteria None seen /hpf (None Seen) Urine Mucus Few (None Seen) Urine Glucose 4+ mg/dL (Normal) H Microbiology Microbiology Date/Time Source Procedure Growth Status 08/10/25 21:47 Nose MRSA Screen - Final Complete 07/27/25 11:21 Blood Blood Culture - Final NO GROWTH AFTER 5 DAYS OF INCUBATION. Complete 07/24/25 03:35 Urine - [place] Urine Culture - Final Complete Assessment/Plan Assessment/Plan Impression: Acute hypoxic respiratory failure Dependence on supplemental oxygen S/p cardiac arrest Pulmonary congestion Congestive heart failure Obesity Events: Improved O2 requirements On room air No distress. Denies SOB Improving mentation On 1:1 monitoring for safety Central line removed. Midline in place. Remains off pressors, hemodynamically stable. Aspiration risk. Head of bed elevation Aspiration precautions Continue bronchodilators/Mucomyst Chest physiotherapy Continue antibiotics Incentive spirometry Monitor blood pressure - currently soft Amiodarone PO/Eliquis/metoprolol for AFib Accu-Cheks, ISS. Protonix for GI ppx Tube feeds via NGT for nutritional support Continue physical therapy, max assist. Disposition per hospitalist. Patient is awaiting bed at the [facility]. Chest x-ray on 08/08/25 reveals stable-appearing moderate pulmonary vascular congestion. Labs and imaging reviewed. Rest of plan as noted below. Plan: S/p extubation on 08/03/25 Supplemental oxygen PRN Titrate to keep O2 sats above 92%. Head of bed elevation Aspiration precautions Continue bronchodilators Continue antibiotics Incentive spirometry Accu-Cheks, ISS Tube feeds for nutritional support Monitor renal function. Monitor electrolytes. Supplement as necessary. Monitor ins and outs. Recommend diet and lifestyle modifications for weight reduction Obesity complicates all care DVT prophylaxis. Prognosis: Guarded given patient's multiple co-morbidities. Rest of plan per hospitalist and other consultants. Thank you, HERMINIA Sweeney, for allowing me to participate in this patient's care. Further recommendations will depend on the patient's clinical course. Please do not hesitate to contact me if you have any questions or concerns. This medical document was created using an electronic medical record system with dot[employer] dictation system. Although these documentations are being carefully reviewed, there may still be some phonetic and typographical changes. The errors are purely typographical, due to imperfection on the software program, and do not reflect any compromise in the patient's medical care. Plan discussed with: Patient, Other ([place]) Visit Coding Pulmonary Billing Provider: RUBI ASIF MD Date of Service if different f: Aug 11, 2025 Common Visit Codes: [id number] INP/OBS CARE(HIGH) RUBI ASIF MD Aug 11, 2025 23:01
--- NOTE | 2025-08-11 23:23 | DVHPN2 ---
Progress Note - Dictate Date Seen: Aug 11, 2025 Has the PT tested + for MRSA If YES, has PT been informed?: No Medical Necessity Reason Pt with a Central, PICC or Fol: No Subjective Patient was seen and evaluated in follow up. Sitter is at bedside. Patient appears more calm today. Patients BP is trending low. THADDEUS inhibitors and Metoprolol held today. K 3.3, potassium is begin replaced. Telemetry reviewed vital signs Vital Sign Date Time Temp Pulse Resp B/P (MAP) Pulse Ox O2 Delivery O2 Flow Rate FiO2 08/11/25 10:00 Room Air 08/11/25 10:00 0 21 08/11/25 09:52 72 85/53 08/11/25 08:00 18 08/11/25 07:01 100 08/11/25 05:00 98.1 98.1 Total Intake and Output 08/10/25 08/10/25 08/11/25 15:00 23:00 07:00 Intake Total 800 ml Balance 800 ml medications Current Medications Medications Dose Ordered Sig/Lizabeth Route Start Time Stop Time Status Last Admin Dose Admin Ondansetron HCl 4 mg Q4HP PRN IV 07/22/25 15:00 Nitroglycerin 0.4 mg Q5MINP PRN SL 07/22/25 15:00 Diagnostic Test (Pha) 1 strip ACHS 07/22/25 17:00 08/11/25 11:39 1 STRIP Insulin Human Regular ACHS SC 07/22/25 17:00 08/11/25 12:04 3 UNITS Dextrose 50 ml UD PRN IV 07/22/25 16:30 Acetaminophen 500 mg Q6HP PRN PO 07/23/25 17:45 07/25/25 01:52 500 MG Memantine 5 mg HS PO 07/23/25 22:00 08/10/25 22:40 5 MG Midazolam HCl 100 ml @ 1 mls/hr Q24H IV 07/24/25 02:45 Cancel Fentanyl Citrate 250 ml @ 2.5 mls/hr Q24H IV 07/24/25 02:45 Cancel Azithromycin 250 ml @ 125 mls/hr DAILY IV 07/28/25 10:00 Cancel Hydralazine HCl 10 mg Q6HP PRN IV 07/30/25 16:45 08/02/25 06:40 10 MG Albuterol 2.5 mg Q6HPRN PRN NEB 08/06/25 12:30 Albuterol 2.5 mg Q8H NEB 08/06/25 14:00 08/11/25 06:53 2.5 MG Amiodarone HCl 200 mg Q12HR PO 08/07/25 10:00 08/11/25 09:49 200 MG Apixaban 2.5 mg BID PO 08/07/25 10:00 08/11/25 09:49 2.5 MG Aspirin 81 mg DAILY PO 08/07/25 10:00 08/11/25 09:50 81 MG Atorvastatin Calcium 40 mg HS PO 08/07/25 22:00 08/10/25 22:40 40 MG Empaglifozin 25 mg DAILY PO 08/07/25 10:00 08/11/25 09:52 25 MG Metoprolol Tartrate 12.5 mg BID PO 08/10/25 22:00 Potassium Chloride 16 meq DAILY PO 08/11/25 10:00 08/11/25 09:51 16 MEQ objective GENERAL: Alert and oriented x 3. No acute distress. EYES: PERRL, EOMI. Anicteric. HENT: Moist mucous membranes. LUNGS: Crackles to bilateral breath sounds. CARDIOVASCULAR: Irregular rate and rhythm. ABDOMEN: Soft, non-tender and non-distended. EXTREMITIES: No edema. SKIN: Warm, dry. laboratory and microbiology Laboratory Tests 08/11/25 06:55 08/10/25 10:08 Test 08/10/25 10:08 Range/Units Serum Glucose 190 H 74-106 mg/dL Problem List Non ST-elevation myocardial infarction, questionable type 1. Paroxysmal atrial fibrillation/atrial flutter, now NSR (on Eliquis therapy at home). [place] decompensated HFrEF, NYHA Class III. Presence of dual-chamber pacemaker ([employer]). Acute hypoxic respiratory failure. Diabetes mellitus, newly diagnosed. Hypertension. Dyslipidemia. Former smoker/alcoholic. Obesity. Assessment/Plan Continued all current supportive medical care. Amiodarone. Eliquis. Aspirin, Lipitor, Metoprolol. IV antibiotics as ordered. IV Hydralazine for SBP >150. GI prophylactics. Additional plan as per the hospital course. Dietary Evaluation Review Comments: Nutrition Recommendation: 1) EN Glucerna 1.2Cal @ 55ml/hr x 24hr (goal) along with Pro-stat 1 pk TID. Water flush 50ml Q6H if allowed, adjust PRN. TF at goal volume along with Pro-stat provide 1884 kcal (100%), 124 gm protein (91%), and 1263 ml free water(including flush). 2) TPN if NPO >7 days 3) Monitor NPO status, lab values, weight trend, and I/O Expected Outcomes/Goals: Intake to meet >75% estimated needs Lab values to improve FU 2-3 days Plan discussed with: Patient ANUPAMA JACOBO MD Aug 11, 2025 12:55
[2025-08-12] VITALS (7 sets, daily range): BP systolic 115; BP diastolic 71; PULSE 70; RESP 16–18; TEMP 96.2; O2SAT 95–100
--- NOTE | 2025-08-12 13:33 | DVHPN2 ---
Subjective seen in bed resting Reviewed: Care Plan, H&P, Labs, Medications, Previous Orders, Radiology, Other (Consultations) Changes from previous H/P or p: No Changes General: Per HPI Objective Vitals Vital Signs Date Time Temp Pulse Resp B/P (MAP) Pulse Ox O2 Delivery O2 Flow Rate FiO2 08/12/25 10:22 70 120/78 08/12/25 10:00 98 Room Air 0.0 08/12/25 10:00 98 21 08/12/25 08:00 18 08/11/25 21:00 97.7 97.7 General Appearance: Alert, Oriented X3, Cooperative HEENT: Atraumatic, PERRLA, Other (Right IJ central line with no signs of bleeding/infection) Lungs: Clear to auscultation, Normal air movement Chest/Breasts: Other (Pacemaker in place) Cardiovascular: Normal S1, Normal S2, Other (V paced) Abdomen: Normal bowel sounds, Soft Genitourinary: No Apparent Abnormalities ([place] catheter) Musculoskeletal: Weak motor strength RUE, Weak motor strength LUE, Weak motor strength RLE, Weak motor strength LLE Neuro: Cranial nerves 3-12 NL Skin: Dry, Intact Psych/Mental Status: Mental status NL, Mood NL Medications Current Medications Medications Dose Ordered Sig/Lizabeth Route Start Time Stop Time Status Last Admin Dose Admin Ondansetron HCl 4 mg Q4HP PRN IV 07/22/25 15:00 Nitroglycerin 0.4 mg Q5MINP PRN SL 07/22/25 15:00 Diagnostic Test (Pha) 1 strip ACHS 07/22/25 17:00 08/12/25 11:30 1 STRIP Insulin Human Regular ACHS SC 07/22/25 17:00 08/12/25 11:30 2 UNITS Dextrose 50 ml UD PRN IV 07/22/25 16:30 Acetaminophen 500 mg Q6HP PRN PO 07/23/25 17:45 08/11/25 22:36 500 MG Memantine 5 mg HS PO 07/23/25 22:00 08/11/25 22:36 5 MG Midazolam HCl 100 ml @ 1 mls/hr Q24H IV 07/24/25 02:45 Cancel Fentanyl Citrate 250 ml @ 2.5 mls/hr Q24H IV 07/24/25 02:45 Cancel Azithromycin 250 ml @ 125 mls/hr DAILY IV 07/28/25 10:00 Cancel Hydralazine HCl 10 mg Q6HP PRN IV 07/30/25 16:45 08/02/25 06:40 10 MG Albuterol 2.5 mg Q6HPRN PRN NEB 08/06/25 12:30 Albuterol 2.5 mg Q8H NEB 08/06/25 14:00 08/11/25 06:53 2.5 MG Amiodarone HCl 200 mg Q12HR PO 08/07/25 10:00 08/12/25 09:17 200 MG Apixaban 2.5 mg BID PO 08/07/25 10:00 08/12/25 09:18 2.5 MG Aspirin 81 mg DAILY PO 08/07/25 10:00 08/12/25 09:18 81 MG Atorvastatin Calcium 40 mg HS PO 08/07/25 22:00 08/11/25 22:36 40 MG Empaglifozin 25 mg DAILY PO 08/07/25 10:00 08/12/25 09:18 25 MG Metoprolol Tartrate 12.5 mg BID PO 08/10/25 22:00 08/12/25 09:22 12.5 MG Potassium Chloride 16 meq DAILY PO 08/11/25 10:00 08/12/25 09:17 16 MEQ Laboratory Results Laboratory Tests 08/10/25 10:08 08/11/25 06:55 Urinalysis Test 08/08/25 15:40 Urine Color Colorless (Yellow) Urine Clarity Clear (Clear) Urine pH 6.0 (5.0-9.0) Urine Specific [place] 1.024 (1.001-1.035) Urine Protein Negative (Negative) Urine Ketones Negative (Negative) Urine Blood 3+ /uL (Negative) H Urine Nitrite Negative (Negative) Urine Bilirubin Negative (Negative) Urine Urobilinogen Normal mg/dL (Negative) Urine Leukocyte Esterase Negative /uL (Negative) Urine RBC 244 /hpf (0 - 3) Urine Microscopic WBC 4 /HPF (0-3) H Urine Squamous Epithelial Cells Few /hpf (<5) Urine Bacteria None seen /hpf (None Seen) Urine Mucus Few (None Seen) Urine Glucose 4+ mg/dL (Normal) H Microbiology Microbiology Date/Time Source Procedure Growth Status 08/10/25 21:47 Nose MRSA Screen - Final Complete 07/27/25 11:21 Blood Blood Culture - Final NO GROWTH AFTER 5 DAYS OF INCUBATION. Complete 07/24/25 03:35 Urine - [place] Urine Culture - Final Complete Assessment/Plan Assessment/Plan -acute metabolic encephalopathy -acute hypoxic respiratory failure -questionable acute seizure activity with postictal state -acute on chronic diastolic heart failure -atrial flutter with controlled rate -recent placement of dual-chamber pacemaker -? History of ETOH -acute kidney injury, vasomotor nephropathy -obesity -primary hypertension -NSTEMI, probably type 2 -rhabdomyolysis Plan: Events: Repeat potassium improved at 3.3. Continued replete. Patient's blood pressure 85/53 this morning despite decreasing guideline directed medical therapy doses yesterday. We will hold THADDEUS inhibitors at this time. Hold metoprolol tartrate today, re-evaluate for restarting tonight -K replacement -potassium replacement -physical therapy: Noted to ambulate 30 ft. Recommendations also for [facility] facility. -social service consultation for transfer to [facility]. At this time hold off on [facility] facility evaluation given blood pressure is marginal. Total time spent with patient discussing and formulating plan of care: 35 minutes. Plan discussed with: Patient Date of Service: Aug 12, 2025 Billing Provider: LAMINE BOX MD Common Visit Codes: [id number] INP/OBS CARE(HIGH) LAMINE BOX MD Aug 12, 2025 13:33
--- NOTE | 2025-08-12 22:10 | DVHPN2 ---
Consult Progress Note Date Seen: Aug 12, 2025 Subjective Patient reports: Feels better (working on ambulation w/ PT) Objective vital signs Vital Sign Date Time Temp Pulse Resp B/P (MAP) Pulse Ox O2 Delivery O2 Flow Rate FiO2 08/12/25 13:52 70 16 100 08/12/25 13:46 Room Air 0.0 08/12/25 13:46 21 08/12/25 10:22 120/78 08/11/25 21:00 97.7 97.7 medications Current Medications Medications Dose Ordered Sig/Lizabeth Route Start Time Stop Time Status Last Admin Dose Admin Ondansetron HCl 4 mg Q4HP PRN IV 07/22/25 15:00 Nitroglycerin 0.4 mg Q5MINP PRN SL 07/22/25 15:00 Diagnostic Test (Pha) 1 strip ACHS 07/22/25 17:00 08/12/25 11:30 1 STRIP Insulin Human Regular ACHS SC 07/22/25 17:00 08/12/25 11:30 2 UNITS Dextrose 50 ml UD PRN IV 07/22/25 16:30 Acetaminophen 500 mg Q6HP PRN PO 07/23/25 17:45 08/11/25 22:36 500 MG Memantine 5 mg HS PO 07/23/25 22:00 08/11/25 22:36 5 MG Midazolam HCl 100 ml @ 1 mls/hr Q24H IV 07/24/25 02:45 Cancel Fentanyl Citrate 250 ml @ 2.5 mls/hr Q24H IV 07/24/25 02:45 Cancel Azithromycin 250 ml @ 125 mls/hr DAILY IV 07/28/25 10:00 Cancel Hydralazine HCl 10 mg Q6HP PRN IV 07/30/25 16:45 08/02/25 06:40 10 MG Albuterol 2.5 mg Q6HPRN PRN NEB 08/06/25 12:30 Albuterol 2.5 mg Q8H NEB 08/06/25 14:00 08/12/25 13:46 2.5 MG Amiodarone HCl 200 mg Q12HR PO 08/07/25 10:00 08/12/25 09:17 200 MG Apixaban 2.5 mg BID PO 08/07/25 10:00 08/12/25 09:18 2.5 MG Aspirin 81 mg DAILY PO 08/07/25 10:00 08/12/25 09:18 81 MG Atorvastatin Calcium 40 mg HS PO 08/07/25 22:00 08/11/25 22:36 40 MG Empaglifozin 25 mg DAILY PO 08/07/25 10:00 08/12/25 09:18 25 MG Metoprolol Tartrate 12.5 mg BID PO 08/10/25 22:00 08/12/25 09:22 12.5 MG Potassium Chloride 16 meq DAILY PO 08/11/25 10:00 08/12/25 09:17 16 MEQ laboratory and microbiology Laboratory Tests 08/11/25 06:55 08/10/25 10:08 Test 08/10/25 10:08 Range/Units Serum Glucose 190 H 74-106 mg/dL Problem List/Assessment/Plan Problem List/Assessment/Plan ASSESSMENT AND PLAN: ID Problem List: - acute hypoxic respiratory failure - atypical pneumonia -Altered mental status with decreased level of consciousness -Intermittent fevers during hospitalization (onset ~07/24, peak 102F on 07/25) -Leukocytosis (harry to 11.9 on 07/26) -Atrial fibrillation/atrial flutter; s/p pacemaker placement (06/27, [place]) -Hypertension -Possible community-acquired pneumonia vs atypical/viral pneumonia (no clear focal consolidation on CXR) -Possible drug fever (ceftriaxone; consider other recent medications) -Elevated troponin (657 on 07/24) and bundle branch block on EKG -Cardiomegaly with pulmonary vascular congestion on chest imaging -Intubated 07/23; on fentanyl infusion; on vasopressor support (norepinephrine) -Aortic systolic ejection murmur -Left shoulder blister, scabbed -Obesity (BMI 35.6) -Former alcohol use disorder; former smoker Assessment This is a male with a history of atrial fibrillation/atrial flutter, hypertension, former heavy alcohol use (currently abstinent), former smoker, and pacemaker placement on 06/27 who presented with decreased level of consciousness after several days of pacemaker-detected arrhythmias. Admission vitals were stable without initial fever; he subsequently developed fevers beginning ~07/24 peaking at 102F on 07/25, then trending down. He was intubated on 07/23, now on minimal ventilator support; he remains on norepinephrine (14 mcg) with improving blood pressures over 2448 hours. Cultures (blood, urine) have been negative to date; tracheal/respiratory culture shows normal oropharyngeal chely. Chest imaging demonstrates cardiomegaly and moderate pulmonary vascular congestion without a clear focal pneumonia. EKG shows a bundle branch block and troponin harry to 657 on 07/24. Leukocytosis increased to 11.9 on 07/26. UA shows mild pyuria (11 WBC), negative LE/nitrites, no bacteria, and 4+ glucosuria; urine cultures negative. Head CT shows no acute intracranial process; renal ultrasound without hydronephrosis. Differential for fevers and leukocytosis includes atypical/viral pneumonia, drug fever (ceftriaxone; also consider recent furosemide, increased statin dose, amiodarone), venous thromboembolism with possible inflammatory fever, aspiration pneumonitis, and noninfectious ischemic hepatopathy in the context of critical illness and elevated troponin. 07/28: fever curve improving but still febrile, doppler US negative for DVT, HIV negative 07/29: off pressors, hypoxia improving on minimal vent 07/30: no new fevers 07/31: requiring antipyretic, cooling blanket 08/01: worsening hypernatremia, no true fevers but recurrent elevated temps 08/02: doxycycline stopped, switched to levofloxacin for elevated temps 08/04: extubated to 2LNC, no ongoing sign of infection 08/08: no ongoing signs of infection 08/10: MRSA nares negative 08/11: intermittent hypotension, ARBs stopped 08/12: awaiting transfer to [facility] Plan: -Antimicrobials: - will monitor clinically off all antibiotics -Diagnostics: - check legionella ag and mycoplasma ab--> negative -Fever/Leukocytosis: -Monitor fever curve; note that resolution may take several days if drug fever- related. -Continue to monitor WBC trend and clinical status. -Respiratory: -Continue ventilatory weaning as tolerated; monitor for signs of aspiration or evolving pneumonia. -Repeat chest imaging as clinically indicated. -Cardiovascular: -Continue amiodarone per cardiology. -Trend troponins. -Maintain adequate perfusion; coordinate with cardiology regarding vasopressor/inotrope strategy (cardioselective agents as appropriate). -Renal/Volume: -Monitor urine output (reported ~1,300 cc/day); continue diuresis with furosemide as clinically indicated. -Supportive care: -Antipyretics as needed (acetaminophen given once on 07/24). -Continue ICU-level monitoring and supportive measures. -Infection prevention: -No evidence for catheter- or skin-source infection on current exam; continue routine line care and skin assessments. Isolation Precautions: standard \*Assessment and plan was discussed with the care team as written above. \*Plan is subject to change pending incorporation of new incoming information/diagnostics. Updates may be added as addendum at the bottom (OR TOP) of this note. Thank you for the consult. Infectious Diseases will continue to follow. Please contact Infectious Disease for any questions or concerns. ++++++++++++++++++++++++++++++++++++++++++++++++++++++++++++++++++++++++ Physical Exam: General: NAD Neck: Supple. No masses. HEENT: PERRL. Normal lids and conjunctiva. Moist mucous membranes. Oropharynx without lesions, exudates or excessive erythema. Normal appearance of the external aspects of the nose and ears. Heart: Regular rhythm, normal rate. Aortic systolic ejection murmur present. No lower extremity edema noted. Lungs: Normal respiratory effort. Clear to auscultation bilaterally. No wheezes. No crackles. Abdomen: Soft. Non-tender. Non-distended. Normal bowel sounds. No masses or abdominal hernia. Msk: No digital cyanosis. Normal tone in all 4 limbs. Skin: Warm and dry, no rashes. Left shoulder blister with scab. Neuro: Lethargic but oriented to person, place, and time when arousable. No facial droop or slurred speech. Extra-ocular movements intact. Sensation intact to soft touch in all 4 limbs. Decreased strength in upper and lower extremities. Psych: Appropriate mood. Full affect when interactive. Oriented to person, place, time, and situation when arousable. Plan discussed with: Patient Dietary Evaluation Review Comments: Nutrition Recommendation: 1) EN Glucerna 1.2Cal @ 55ml/hr x 24hr (goal) along with Pro-stat 1 pk TID. Water flush 50ml Q6H if allowed, adjust PRN. TF at goal volume along with Pro-stat provide 1884 kcal (100%), 124 gm protein (91%), and 1263 ml free water(including flush). 2) TPN if NPO >7 days 3) Monitor NPO status, lab values, weight trend, and I/O Expected Outcomes/Goals: Intake to meet >75% estimated needs Lab values to improve FU 2-3 days DHRUV GERMAN MD Aug 12, 2025 22:10
--- NOTE | 2025-08-12 23:00 | DVHPN2 ---
Progress Note - Dictate Date Seen: Aug 12, 2025 Has the PT tested + for MRSA If YES, has PT been informed?: No Medical Necessity Reason Pt with a Central, PICC or Fol: No Subjective Patient was seen and evaluated in follow up. No overnight events. Sitter remains at bedside. BS are in the 200's. Telemetry reviewed vital signs Vital Sign Date Time Temp Pulse Resp B/P (MAP) Pulse Ox O2 Delivery O2 Flow Rate FiO2 08/12/25 13:52 70 16 100 08/12/25 13:46 Room Air 0.0 08/12/25 13:46 21 08/12/25 10:22 120/78 08/11/25 21:00 97.7 97.7 medications Current Medications Medications Dose Ordered Sig/Lizabeth Route Start Time Stop Time Status Last Admin Dose Admin Ondansetron HCl 4 mg Q4HP PRN IV 07/22/25 15:00 Nitroglycerin 0.4 mg Q5MINP PRN SL 07/22/25 15:00 Diagnostic Test (Pha) 1 strip ACHS 07/22/25 17:00 08/12/25 11:30 1 STRIP Insulin Human Regular ACHS SC 07/22/25 17:00 08/12/25 11:30 2 UNITS Dextrose 50 ml UD PRN IV 07/22/25 16:30 Acetaminophen 500 mg Q6HP PRN PO 07/23/25 17:45 08/11/25 22:36 500 MG Memantine 5 mg HS PO 07/23/25 22:00 08/11/25 22:36 5 MG Midazolam HCl 100 ml @ 1 mls/hr Q24H IV 07/24/25 02:45 Cancel Fentanyl Citrate 250 ml @ 2.5 mls/hr Q24H IV 07/24/25 02:45 Cancel Azithromycin 250 ml @ 125 mls/hr DAILY IV 07/28/25 10:00 Cancel Hydralazine HCl 10 mg Q6HP PRN IV 07/30/25 16:45 08/02/25 06:40 10 MG Albuterol 2.5 mg Q6HPRN PRN NEB 08/06/25 12:30 Albuterol 2.5 mg Q8H NEB 08/06/25 14:00 08/12/25 13:46 2.5 MG Amiodarone HCl 200 mg Q12HR PO 08/07/25 10:00 08/12/25 09:17 200 MG Apixaban 2.5 mg BID PO 08/07/25 10:00 08/12/25 09:18 2.5 MG Aspirin 81 mg DAILY PO 08/07/25 10:00 08/12/25 09:18 81 MG Atorvastatin Calcium 40 mg HS PO 08/07/25 22:00 08/11/25 22:36 40 MG Empaglifozin 25 mg DAILY PO 08/07/25 10:00 08/12/25 09:18 25 MG Metoprolol Tartrate 12.5 mg BID PO 08/10/25 22:00 08/12/25 09:22 12.5 MG Potassium Chloride 16 meq DAILY PO 08/11/25 10:00 08/12/25 09:17 16 MEQ objective GENERAL: Alert and oriented x 3. No acute distress. EYES: PERRL, EOMI. Anicteric. HENT: Moist mucous membranes. LUNGS: Crackles to bilateral breath sounds. CARDIOVASCULAR: Irregular rate and rhythm. ABDOMEN: Soft, non-tender and non-distended. EXTREMITIES: No edema. SKIN: Warm, dry. laboratory and microbiology Laboratory Tests 08/11/25 06:55 08/10/25 10:08 Test 08/10/25 10:08 Range/Units Serum Glucose 190 H 74-106 mg/dL Problem List Non ST-elevation myocardial infarction, questionable type 1. Paroxysmal atrial fibrillation/atrial flutter, now NSR (on Eliquis therapy at home). [place] decompensated HFrEF, NYHA Class III. Presence of dual-chamber pacemaker (Medtronic). Acute hypoxic respiratory failure. Diabetes mellitus, newly diagnosed. Hypertension. Dyslipidemia. Former smoker/alcoholic. Obesity. Assessment/Plan Continued all current supportive medical care. Amiodarone. Eliquis. Aspirin, Lipitor, Metoprolol. IV antibiotics as ordered. IV Hydralazine for SBP >150. GI prophylactics. Additional plan as per the hospital course. Dietary Evaluation Review Comments: Nutrition Recommendation: 1) EN Glucerna 1.2Cal @ 55ml/hr x 24hr (goal) along with Pro-stat 1 pk TID. Water flush 50ml Q6H if allowed, adjust PRN. TF at goal volume along with Pro-stat provide 1884 kcal (100%), 124 gm protein (91%), and 1263 ml free water(including flush). 2) TPN if NPO >7 days 3) Monitor NPO status, lab values, weight trend, and I/O Expected Outcomes/Goals: Intake to meet >75% estimated needs Lab values to improve FU 2-3 days Plan discussed with: Patient ANUPAMA JACOBO MD Aug 12, 2025 14:13
--- NOTE | 2025-08-12 23:50 | DVHPN2 ---
Subjective DOS: 08/12/2025 Patient seen and examined at bedside. Remains on room air Overnight events reviewed. Reviewed: Care Plan, H&P, Labs, Medications, Previous Orders, Radiology, Other (Consultations) Changes from previous H/P or p: No Changes General: Per HPI Objective Vitals Vital Signs Date Time Temp Pulse Resp B/P (MAP) Pulse Ox O2 Delivery O2 Flow Rate FiO2 08/12/25 22:23 95 Room Air* 0 21 08/12/25 22:16 70 115/71 08/12/25 13:52 16 08/11/25 21:00 97.7 97.7 Exam Gen.: Patient lying in bed in no apparent distress. On room air. Head: Normocephalic, atraumatic. Eyes: EOMI/PERRLA. Ears: Normal hearing. Normal anatomy. Neck/trachea: Trachea midline, supple. Nose: Normal external anatomy. Mouth: Moist mucous membranes. Chest: Decreased air entry bilaterally. No wheezing or rhonchi. Cardiovascular: Positive S1, positive S2. Regular rate and rhythm. Abdomen: Positive bowel sounds in all 4 quadrants. Soft, non-tender, non- distended. : Deferred. Rectal: Deferred. Skin: Warm, dry. Intact. Extremities: 2+ radial pulses bilaterally. No lower extremity edema. Neuro: Awake, alert. No gross motor or sensory deficits. Cranial nerves II through XII intact. Gait not assessed. General Appearance: Alert, Oriented X3, Cooperative HEENT: Atraumatic, PERRLA, Other (Right IJ central line with no signs of bleeding/infection) Lungs: Clear to auscultation, Normal air movement Chest/Breasts: Other (Pacemaker in place) Cardiovascular: Normal S1, Normal S2, Other (V paced) Abdomen: Normal bowel sounds, Soft Genitourinary: No Apparent Abnormalities ([place] catheter) Musculoskeletal: Weak motor strength RUE, Weak motor strength LUE, Weak motor strength RLE, Weak motor strength LLE Neuro: Cranial nerves 3-12 NL Skin: Dry, Intact Psych/Mental Status: Mental status NL, Mood NL Medications Current Medications Medications Dose Ordered Sig/Lizabeth Route Start Time Stop Time Status Last Admin Dose Admin Ondansetron HCl 4 mg Q4HP PRN IV 07/22/25 15:00 Nitroglycerin 0.4 mg Q5MINP PRN SL 07/22/25 15:00 Diagnostic Test (Pha) 1 strip ACHS 07/22/25 17:00 08/12/25 22:24 1 STRIP Insulin Human Regular ACHS SC 07/22/25 17:00 08/12/25 22:25 3 UNITS Dextrose 50 ml UD PRN IV 07/22/25 16:30 Acetaminophen 500 mg Q6HP PRN PO 07/23/25 17:45 08/11/25 22:36 500 MG Memantine 5 mg HS PO 07/23/25 22:00 08/12/25 22:15 5 MG Midazolam HCl 100 ml @ 1 mls/hr Q24H IV 07/24/25 02:45 Cancel Fentanyl Citrate 250 ml @ 2.5 mls/hr Q24H IV 07/24/25 02:45 Cancel Azithromycin 250 ml @ 125 mls/hr DAILY IV 07/28/25 10:00 Cancel Hydralazine HCl 10 mg Q6HP PRN IV 07/30/25 16:45 08/02/25 06:40 10 MG Albuterol 2.5 mg Q6HPRN PRN NEB 08/06/25 12:30 Albuterol 2.5 mg Q8H NEB 08/06/25 14:00 08/12/25 13:46 2.5 MG Amiodarone HCl 200 mg Q12HR PO 08/07/25 10:00 08/12/25 22:15 200 MG Apixaban 2.5 mg BID PO 08/07/25 10:00 08/12/25 22:15 2.5 MG Aspirin 81 mg DAILY PO 08/07/25 10:00 08/12/25 09:18 81 MG Atorvastatin Calcium 40 mg HS PO 08/07/25 22:00 08/12/25 22:15 40 MG Empaglifozin 25 mg DAILY PO 08/07/25 10:00 08/12/25 09:18 25 MG Metoprolol Tartrate 12.5 mg BID PO 08/10/25 22:00 08/12/25 22:16 12.5 MG Potassium Chloride 16 meq DAILY PO 08/11/25 10:00 08/12/25 09:17 16 MEQ Laboratory Results Laboratory Tests 08/10/25 10:08 08/11/25 06:55 Urinalysis Test 08/08/25 15:40 Urine Color Colorless (Yellow) Urine Clarity Clear (Clear) Urine pH 6.0 (5.0-9.0) Urine Specific [place] 1.024 (1.001-1.035) Urine Protein Negative (Negative) Urine Ketones Negative (Negative) Urine Blood 3+ /uL (Negative) H Urine Nitrite Negative (Negative) Urine Bilirubin Negative (Negative) Urine Urobilinogen Normal mg/dL (Negative) Urine Leukocyte Esterase Negative /uL (Negative) Urine RBC 244 /hpf (0 - 3) Urine Microscopic WBC 4 /HPF (0-3) H Urine Squamous Epithelial Cells Few /hpf (<5) Urine Bacteria None seen /hpf (None Seen) Urine Mucus Few (None Seen) Urine Glucose 4+ mg/dL (Normal) H Microbiology Microbiology Date/Time Source Procedure Growth Status 08/10/25 21:47 Nose MRSA Screen - Final Complete 07/27/25 11:21 Blood Blood Culture - Final NO GROWTH AFTER 5 DAYS OF INCUBATION. Complete 07/24/25 03:35 Urine - [place] Urine Culture - Final Complete Assessment/Plan Assessment/Plan Impression: Acute hypoxic respiratory failure S/p cardiac arrest Pulmonary congestion Congestive heart failure Obesity Events: Improved O2 requirements On room air No distress. Denies SOB Improved mentation On 1:1 monitoring for safety Remains off pressors, hemodynamically stable. Aspiration risk. Head of bed elevation Aspiration precautions Continue bronchodilators/Mucomyst Chest physiotherapy Continue antibiotics Incentive spirometry Monitor blood pressure Amiodarone PO/Eliquis/metoprolol for AFib Accu-Cheks, ISS. Protonix for GI ppx Tube feeds via NGT for nutritional support Continue physical therapy, max assist. Disposition per hospitalist. Patient is awaiting bed at the [facility]. Central line removed. Midline in place. Chest x-ray on 08/08/25 reveals stable-appearing moderate pulmonary vascular congestion. Labs and imaging reviewed. Rest of plan as noted below. Plan: S/p extubation on 08/03/25 Supplemental oxygen PRN Titrate to keep O2 sats above 92%. Head of bed elevation Aspiration precautions Continue bronchodilators Continue antibiotics Incentive spirometry Accu-Cheks, ISS Tube feeds for nutritional support Monitor renal function. Monitor electrolytes. Supplement as necessary. Monitor ins and outs. Recommend diet and lifestyle modifications for weight reduction Obesity complicates all care DVT prophylaxis. Prognosis: Guarded given patient's multiple co-morbidities. Rest of plan per hospitalist and other consultants. Thank you, HERMINIA Sweeney, for allowing me to participate in this patient's care. Further recommendations will depend on the patient's clinical course. Please do not hesitate to contact me if you have any questions or concerns. This medical document was created using an electronic medical record system with [employer] dictation system. Although these documentations are being carefully reviewed, there may still be some phonetic and typographical changes. The errors are purely typographical, due to imperfection on the software program, and do not reflect any compromise in the patient's medical care. Plan discussed with: Patient, Other (RN) Visit Coding Pulmonary Billing Provider: RUBI ASIF MD Date of Service if different f: Aug 12, 2025 Common Visit Codes: [id number] INP/OBS CARE(HIGH) RUBI ASIF MD Aug 12, 2025 23:50
[2025-08-13] VITALS (16 sets, daily range): BP systolic 93–130; BP diastolic 46–77; PULSE 70–80; RESP 16–18; TEMP 96.1–98.8; O2SAT 92–100
--- NOTE | 2025-08-13 16:18 | DVHPN2 ---
Subjective seen in bed resting Reviewed: Care Plan, H&P, Labs, Medications, Previous Orders, Radiology, Other (Consultations) Changes from previous H/P or p: No Changes General: Per HPI Objective Vitals Vital Signs Date Time Temp Pulse Resp B/P (MAP) Pulse Ox O2 Delivery O2 Flow Rate FiO2 08/13/25 14:57 79 16 95 08/13/25 14:51 Room Air 0.0 08/13/25 14:51 21 08/13/25 12:37 98.8 104/64 (77) 98.8 Intake/Output Intake and Output 08/13/25 05:00 Intake Total 850 ml Output Total 1700 ml Balance -850 ml Intake Oral 850 ml Output Urine Total 1700 ml # Bowel Movements 2 General Appearance: Alert, Oriented X3, Cooperative HEENT: Atraumatic, PERRLA, Other (Right IJ central line with no signs of bleeding/infection) Lungs: Clear to auscultation, Normal air movement Chest/Breasts: Other (Pacemaker in place) Cardiovascular: Normal S1, Normal S2, Other (V paced) Abdomen: Normal bowel sounds, Soft Genitourinary: No Apparent Abnormalities ([place] catheter) Musculoskeletal: Weak motor strength RUE, Weak motor strength LUE, Weak motor strength RLE, Weak motor strength LLE Neuro: Cranial nerves 3-12 NL Skin: Dry, Intact Psych/Mental Status: Mental status NL, Mood NL Medications Current Medications Medications Dose Ordered Sig/Lizabeth Route Start Time Stop Time Status Last Admin Dose Admin Ondansetron HCl 4 mg Q4HP PRN IV 07/22/25 15:00 Nitroglycerin 0.4 mg Q5MINP PRN SL 07/22/25 15:00 Diagnostic Test (Pha) 1 strip ACHS 07/22/25 17:00 08/13/25 10:45 1 STRIP Insulin Human Regular ACHS SC 07/22/25 17:00 08/13/25 10:44 4 UNITS Dextrose 50 ml UD PRN IV 07/22/25 16:30 Acetaminophen 500 mg Q6HP PRN PO 07/23/25 17:45 08/11/25 22:36 500 MG Memantine 5 mg HS PO 07/23/25 22:00 08/12/25 22:15 5 MG Midazolam HCl 100 ml @ 1 mls/hr Q24H IV 07/24/25 02:45 Cancel Fentanyl Citrate 250 ml @ 2.5 mls/hr Q24H IV 07/24/25 02:45 Cancel Azithromycin 250 ml @ 125 mls/hr DAILY IV 07/28/25 10:00 Cancel Hydralazine HCl 10 mg Q6HP PRN IV 07/30/25 16:45 08/02/25 06:40 10 MG Albuterol 2.5 mg Q6HPRN PRN NEB 08/06/25 12:30 Albuterol 2.5 mg Q8H NEB 08/06/25 14:00 08/13/25 14:51 2.5 MG Amiodarone HCl 200 mg Q12HR PO 08/07/25 10:00 08/13/25 10:05 200 MG Apixaban 2.5 mg BID PO 08/07/25 10:00 08/13/25 10:05 2.5 MG Aspirin 81 mg DAILY PO 08/07/25 10:00 08/13/25 10:05 81 MG Atorvastatin Calcium 40 mg HS PO 08/07/25 22:00 08/12/25 22:15 40 MG Empaglifozin 25 mg DAILY PO 08/07/25 10:00 08/13/25 10:06 25 MG Metoprolol Tartrate 12.5 mg BID PO 08/10/25 22:00 08/13/25 10:11 12.5 MG Potassium Chloride 16 meq DAILY PO 08/11/25 10:00 08/13/25 10:06 16 MEQ Laboratory Results Laboratory Tests 08/10/25 10:08 08/11/25 06:55 Urinalysis Test 08/08/25 15:40 Urine Color Colorless (Yellow) Urine Clarity Clear (Clear) Urine pH 6.0 (5.0-9.0) Urine Specific [place] 1.024 (1.001-1.035) Urine Protein Negative (Negative) Urine Ketones Negative (Negative) Urine Blood 3+ /uL (Negative) H Urine Nitrite Negative (Negative) Urine Bilirubin Negative (Negative) Urine Urobilinogen Normal mg/dL (Negative) Urine Leukocyte Esterase Negative /uL (Negative) Urine RBC 244 /hpf (0 - 3) Urine Microscopic WBC 4 /HPF (0-3) H Urine Squamous Epithelial Cells Few /hpf (<5) Urine Bacteria None seen /hpf (None Seen) Urine Mucus Few (None Seen) Urine Glucose 4+ mg/dL (Normal) H Microbiology Microbiology Date/Time Source Procedure Growth Status 08/10/25 21:47 Nose MRSA Screen - Final Complete 07/27/25 11:21 Blood Blood Culture - Final NO GROWTH AFTER 5 DAYS OF INCUBATION. Complete 07/24/25 03:35 Urine - [place] Urine Culture - Final Complete Assessment/Plan Assessment/Plan -acute metabolic encephalopathy -acute hypoxic respiratory failure -questionable acute seizure activity with postictal state -acute on chronic diastolic heart failure -atrial flutter with controlled rate -recent placement of dual-chamber pacemaker -? History of ETOH -acute kidney injury, vasomotor nephropathy -obesity -primary hypertension -NSTEMI, probably type 2 -rhabdomyolysis Plan: Events: Repeat potassium improved at 3.3. Continued replete. Patient's blood pressure 85/53 this morning despite decreasing guideline directed medical therapy doses yesterday. We will hold THADDEUS inhibitors at this time. Hold metoprolol tartrate today, re-evaluate for restarting tonight -K replacement -potassium replacement -physical therapy: Noted to ambulate 30 ft. Recommendations also for correction facility. -social service consultation for transfer to [facility]. At this time hold off on correction facility evaluation given blood pressure is marginal. Total time spent with patient discussing and formulating plan of care: 35 minutes. Plan discussed with: Patient Date of Service: Aug 13, 2025 Billing Provider: LAMINE BOX MD Common Visit Codes: [id number] INP/OBS CARE(HIGH) LAMINE BOX MD Aug 13, 2025 16:18
--- NOTE | 2025-08-13 19:23 | DVHPN2 ---
Progress Note - Dictate Date Seen: Aug 13, 2025 Has the PT tested + for MRSA If YES, has PT been informed?: No Medical Necessity Reason Pt with a Central, PICC or Fol: No Subjective Patient was seen and evaluated in follow up. Sitter remains present at bedside. BS are in the 200's. Telemetry reviewed vital signs Vital Sign Date Time Temp Pulse Resp B/P (MAP) Pulse Ox O2 Delivery O2 Flow Rate FiO2 08/13/25 12:37 98.8 71 18 104/64 (77) 98 98.8 08/13/25 06:33 Room Air 0.0 08/13/25 06:33 21 Total Intake and Output 08/12/25 08/12/25 08/13/25 15:00 23:00 07:00 Intake Total 380 ml 470 ml Output Total 500 ml 1200 ml Balance -120 ml -730 ml medications Current Medications Medications Dose Ordered Sig/Lizabeth Route Start Time Stop Time Status Last Admin Dose Admin Ondansetron HCl 4 mg Q4HP PRN IV 07/22/25 15:00 Nitroglycerin 0.4 mg Q5MINP PRN SL 07/22/25 15:00 Diagnostic Test (Pha) 1 strip ACHS 07/22/25 17:00 08/13/25 10:45 1 STRIP Insulin Human Regular ACHS SC 07/22/25 17:00 08/13/25 10:44 4 UNITS Dextrose 50 ml UD PRN IV 07/22/25 16:30 Acetaminophen 500 mg Q6HP PRN PO 07/23/25 17:45 08/11/25 22:36 500 MG Memantine 5 mg HS PO 07/23/25 22:00 08/12/25 22:15 5 MG Midazolam HCl 100 ml @ 1 mls/hr Q24H IV 07/24/25 02:45 Cancel Fentanyl Citrate 250 ml @ 2.5 mls/hr Q24H IV 07/24/25 02:45 Cancel Azithromycin 250 ml @ 125 mls/hr DAILY IV 07/28/25 10:00 Cancel Hydralazine HCl 10 mg Q6HP PRN IV 07/30/25 16:45 08/02/25 06:40 10 MG Albuterol 2.5 mg Q6HPRN PRN NEB 08/06/25 12:30 Albuterol 2.5 mg Q8H NEB 08/06/25 14:00 08/13/25 06:33 2.5 MG Amiodarone HCl 200 mg Q12HR PO 08/07/25 10:00 08/13/25 10:05 200 MG Apixaban 2.5 mg BID PO 08/07/25 10:00 08/13/25 10:05 2.5 MG Aspirin 81 mg DAILY PO 08/07/25 10:00 08/13/25 10:05 81 MG Atorvastatin Calcium 40 mg HS PO 08/07/25 22:00 08/12/25 22:15 40 MG Empaglifozin 25 mg DAILY PO 08/07/25 10:00 08/13/25 10:06 25 MG Metoprolol Tartrate 12.5 mg BID PO 08/10/25 22:00 08/13/25 10:11 12.5 MG Potassium Chloride 16 meq DAILY PO 08/11/25 10:00 08/13/25 10:06 16 MEQ objective GENERAL: Alert and oriented x 3. No acute distress. EYES: PERRL, EOMI. Anicteric. HENT: Moist mucous membranes. LUNGS: Crackles to bilateral breath sounds. CARDIOVASCULAR: Irregular rate and rhythm. ABDOMEN: Soft, non-tender and non-distended. EXTREMITIES: No edema. SKIN: Warm, dry. laboratory and microbiology Laboratory Tests 08/11/25 06:55 08/10/25 10:08 Test 08/10/25 10:08 Range/Units Serum Glucose 190 H 74-106 mg/dL Problem List Non ST-elevation myocardial infarction, questionable type 1. Paroxysmal atrial fibrillation/atrial flutter, now NSR (on Eliquis therapy at home). [place] decompensated HFrEF, NYHA Class III. Presence of dual-chamber pacemaker ([employer]tr[employer]). Acute hypoxic respiratory failure. Diabetes mellitus, newly diagnosed. Hypertension. Dyslipidemia. Former smoker/alcoholic. Obesity. Assessment/Plan Continued all current supportive medical care. Amiodarone. Eliquis. Aspirin, Lipitor, Metoprolol. IV antibiotics as ordered. IV Hydralazine for SBP >150. GI prophylactics. Additional plan as per the hospital course. Dietary Evaluation Review Comments: Nutrition Recommendation: 1) EN Glucerna 1.2Cal @ 55ml/hr x 24hr (goal) along with Pro-stat 1 pk TID. Water flush 50ml Q6H if allowed, adjust PRN. TF at goal volume along with Pro-stat provide 1884 kcal (100%), 124 gm protein (91%), and 1263 ml free water(including flush). 2) TPN if NPO >7 days 3) Monitor NPO status, lab values, weight trend, and I/O Expected Outcomes/Goals: Intake to meet >75% estimated needs Lab values to improve FU 2-3 days Plan discussed with: Patient ANUPAMA JACOBO MD Aug 13, 2025 14:46
--- NOTE | 2025-08-13 23:20 | DVHPN2 ---
Subjective DOS: 08/13/2025 Patient seen and examined at bedside. Remains on room air Overnight events reviewed. Reviewed: Care Plan, H&P, Labs, Medications, Previous Orders, Radiology, Other (Consultations) Changes from previous H/P or p: No Changes General: Per HPI Objective Vitals Vital Signs Date Time Temp Pulse Resp B/P (MAP) Pulse Ox O2 Delivery O2 Flow Rate FiO2 08/13/25 22:41 70 16 99 08/13/25 22:35 Room Air 0.0 08/13/25 22:35 21 08/13/25 21:00 96.2 105/69 (81) 96.2 Intake/Output Intake and Output 08/13/25 07:00 Intake Total 850 ml Output Total 1700 ml Balance -850 ml Intake Oral 850 ml Output Urine Total 1700 ml # Bowel Movements 2 Exam Gen.: Patient lying in bed in no apparent distress. On room air. Head: Normocephalic, atraumatic. Eyes: EOMI/PERRLA. Ears: Normal hearing. Normal anatomy. Neck/trachea: Trachea midline, supple. Nose: Normal external anatomy. Mouth: Moist mucous membranes. Chest: Decreased air entry bilaterally. No wheezing or rhonchi. Cardiovascular: Positive S1, positive S2. Regular rate and rhythm. Abdomen: Positive bowel sounds in all 4 quadrants. Soft, non-tender, non- distended. : Deferred. Rectal: Deferred. Skin: Warm, dry. Intact. Extremities: 2+ radial pulses bilaterally. No lower extremity edema. Neuro: Awake, alert. No gross motor or sensory deficits. Cranial nerves II through XII intact. Gait not assessed. General Appearance: Alert, Oriented X3, Cooperative HEENT: Atraumatic, PERRLA, Other (Right IJ central line with no signs of bleeding/infection) Lungs: Clear to auscultation, Normal air movement Chest/Breasts: Other (Pacemaker in place) Cardiovascular: Normal S1, Normal S2, Other (V paced) Abdomen: Normal bowel sounds, Soft Genitourinary: No Apparent Abnormalities ([place] catheter) Musculoskeletal: Weak motor strength RUE, Weak motor strength LUE, Weak motor strength RLE, Weak motor strength LLE Neuro: Cranial nerves 3-12 NL Skin: Dry, Intact Psych/Mental Status: Mental status NL, Mood NL Medications Current Medications Medications Dose Ordered Sig/Lizabeth Route Start Time Stop Time Status Last Admin Dose Admin Ondansetron HCl 4 mg Q4HP PRN IV 07/22/25 15:00 Nitroglycerin 0.4 mg Q5MINP PRN SL 07/22/25 15:00 Diagnostic Test (Pha) 1 strip ACHS 07/22/25 17:00 08/13/25 17:00 1 STRIP Insulin Human Regular ACHS SC 07/22/25 17:00 08/13/25 17:00 2 UNITS Dextrose 50 ml UD PRN IV 07/22/25 16:30 Acetaminophen 500 mg Q6HP PRN PO 07/23/25 17:45 08/11/25 22:36 500 MG Memantine 5 mg HS PO 07/23/25 22:00 08/13/25 21:51 5 MG Midazolam HCl 100 ml @ 1 mls/hr Q24H IV 07/24/25 02:45 Cancel Fentanyl Citrate 250 ml @ 2.5 mls/hr Q24H IV 07/24/25 02:45 Cancel Azithromycin 250 ml @ 125 mls/hr DAILY IV 07/28/25 10:00 Cancel Hydralazine HCl 10 mg Q6HP PRN IV 07/30/25 16:45 08/02/25 06:40 10 MG Albuterol 2.5 mg Q6HPRN PRN NEB 08/06/25 12:30 Albuterol 2.5 mg Q8H NEB 08/06/25 14:00 08/13/25 22:37 2.5 MG Amiodarone HCl 200 mg Q12HR PO 08/07/25 10:00 08/13/25 21:51 200 MG Apixaban 2.5 mg BID PO 08/07/25 10:00 08/13/25 21:51 2.5 MG Aspirin 81 mg DAILY PO 08/07/25 10:00 08/13/25 10:05 81 MG Atorvastatin Calcium 40 mg HS PO 08/07/25 22:00 08/13/25 21:51 40 MG Empaglifozin 25 mg DAILY PO 08/07/25 10:00 08/13/25 10:06 25 MG Metoprolol Tartrate 12.5 mg BID PO 08/10/25 22:00 08/13/25 10:11 12.5 MG Potassium Chloride 16 meq DAILY PO 08/11/25 10:00 08/13/25 10:06 16 MEQ Laboratory Results Laboratory Tests 08/10/25 10:08 08/11/25 06:55 Urinalysis Test 08/08/25 15:40 Urine Color Colorless (Yellow) Urine Clarity Clear (Clear) Urine pH 6.0 (5.0-9.0) Urine Specific [place] 1.024 (1.001-1.035) Urine Protein Negative (Negative) Urine Ketones Negative (Negative) Urine Blood 3+ /uL (Negative) H Urine Nitrite Negative (Negative) Urine Bilirubin Negative (Negative) Urine Urobilinogen Normal mg/dL (Negative) Urine Leukocyte Esterase Negative /uL (Negative) Urine RBC 244 /hpf (0 - 3) Urine Microscopic WBC 4 /HPF (0-3) H Urine Squamous Epithelial Cells Few /hpf (<5) Urine Bacteria None seen /hpf (None Seen) Urine Mucus Few (None Seen) Urine Glucose 4+ mg/dL (Normal) H Microbiology Microbiology Date/Time Source Procedure Growth Status 08/10/25 21:47 Nose MRSA Screen - Final Complete 07/27/25 11:21 Blood Blood Culture - Final NO GROWTH AFTER 5 DAYS OF INCUBATION. Complete 07/24/25 03:35 Urine - [place] Urine Culture - Final Complete Assessment/Plan Assessment/Plan Impression: Acute hypoxic respiratory failure S/p cardiac arrest Pulmonary congestion Congestive heart failure Obesity Events: Patient remains on room air No distress. Denies SOB Improved mentation On 1:1 monitoring for safety Remains off pressors, hemodynamically stable. Aspiration risk. Head of bed elevation Aspiration precautions Continue bronchodilators/Mucomyst Chest physiotherapy Incentive spirometry Blood pressure control Amiodarone PO/Eliquis/metoprolol for AFib Monitor renal function. Monitor electrolytes. Supplement as necessary. Potassium supplementation Accu-Cheks, ISS PRN Protonix for GI ppx Tube feeds via NGT for nutritional support Continue physical therapy, max assist. Supportive care Disposition per hospitalist. Patient is awaiting bed at the [facility]. Central line removed. Midline in place. Chest x-ray on 08/08/25 reveals stable-appearing moderate pulmonary vascular congestion. Labs and imaging reviewed. Rest of plan as noted below. Plan: S/p extubation on 08/03/25 Supplemental oxygen PRN Titrate to keep O2 sats above 92%. Head of bed elevation Aspiration precautions Continue bronchodilators Antibiotics Incentive spirometry Accu-Cheks, ISS Tube feeds for nutritional support Monitor renal function. Monitor electrolytes. Supplement as necessary. Monitor ins and outs. Recommend diet and lifestyle modifications for weight reduction Obesity complicates all care DVT prophylaxis. Prognosis: Guarded given patient's multiple co-morbidities. Rest of plan per hospitalist and other consultants. Thank you, HERMINIA Sweeney, for allowing me to participate in this patient's care. Further recommendations will depend on the patient's clinical course. Please do not hesitate to contact me if you have any questions or concerns. This medical document was created using an electronic medical record system with [employer] dictation system. Although these documentations are being carefully reviewed, there may still be some phonetic and typographical changes. The errors are purely typographical, due to imperfection on the software program, and do not reflect any compromise in the patient's medical care. Plan discussed with: Patient, Other (JUVENAL Man) Visit Coding Pulmonary Billing Provider: RUBI ASIF MD Date of Service if different f: Aug 13, 2025 Common Visit Codes: [id number] INP/OBS CARE(HIGH) RUBI ASIF MD Aug 13, 2025 23:20
--- NOTE | 2025-08-13 23:24 | DVHPN2 ---
Progress Note - Dictate Date Seen: Aug 13, 2025 Has the PT tested + for MRSA If YES, has PT been informed?: No Medical Necessity Reason Pt with a Central, PICC or Fol: No Subjective Mr. Renee is a 80 years old right-handed gentleman with a history of hypertension, diabetes, atrial fibrillation, dementia, obesity, he came to the [facility] on 07/22/2025 with a chief complaint of altered mental status. I have seen and examined the patient in she, I have talked to his nurses sitter, he is oriented to person and place, he knows year, month and date, no new complaints Pupil size: 08/04/2025, 08/05/25: Rt: 3-4mm, Lt: 3mm, 08/06/2025 Rt: 4mm, Lt: 3-4mm, 08/06/2025 Rt: 4mm, Lt: 3-4mm 08/10/2025 Rt: 4mm, Lt: 3-4mm According to ER record, memantine and Eliquis were in his home medication list Urinalysis, 07/22/2025: WBC: 11, urine leukocyte esterase: Negative ABG, 07/26/2025: Combined metabolic and respiratory acidosis Blood culture, 07/22/2025: No growth Blood culture, 07/24/2025: WBC/HB/PLT/MCV, 07/26/2025: 11.9/75/147/97.7 PT/INR/ABG, 07/25/2025: 12.2/1.17/34.7, 07/26/2025: 12.5/1.2/38.4 Na, 07/28/25: 144, 07/29/2025: 147, 07/30/2025: 150, 07/31/2025: 151 08/01/25: 151, 08/04/2025: 154, 08/05/2025: 49, 08/06/2025: 146 BUN/CR, 07/25/2025: 17/1.44 GFR, 07/25/2025: 49, 07/31/2025: 32/0.94 HGB A1c, 07/24/2025: 7.8 TBI/AST/ALT/AP, 07/25/2025: 0.8/45/42/68 TG/HDL/LDL/HDL, 07/24/2025: 100/103/42/47 Vitamin B12, 07/24/25: 1658 TSH, 07/24/2025: 1.34 Chest x-ray, 07/24/2025: Heart is prominent size. There is moderate pulmonary vascular congestion. Dual lead left cardiac device. Enteric tube tip is not well visualized. Endotracheal tube is 4 cm from the de Chest x-ray, 07/26/2025: Lines and tubes in satisfactory position. Increased interstitial prominence. This may represent pulmonary vascular congestion and/or viral pneumonia. Chest x-ray, 07/31/2025: 1. Lines and tubes unchanged. 2. Stable diffuse increased prominence of the pulmonary vasculature CT head, 07/22/2025: No acute intracranial abnormality CT head, 08/01/2025: No evidence of acute intracranial abnormality vital signs Vital Sign Date Time Temp Pulse Resp B/P (MAP) Pulse Ox O2 Delivery O2 Flow Rate FiO2 08/13/25 22:41 70 16 99 08/13/25 22:35 Room Air 0.0 08/13/25 22:35 21 08/13/25 21:00 96.2 105/69 (81) 96.2 Total Intake and Output 08/12/25 08/12/25 08/13/25 15:00 23:00 07:00 Intake Total 380 ml 470 ml Output Total 500 ml 1200 ml Balance -120 ml -730 ml medications Current Medications Medications Dose Ordered Sig/Lizabeth Route Start Time Stop Time Status Last Admin Dose Admin Ondansetron HCl 4 mg Q4HP PRN IV 07/22/25 15:00 Nitroglycerin 0.4 mg Q5MINP PRN SL 07/22/25 15:00 Diagnostic Test (Pha) 1 strip ACHS 07/22/25 17:00 08/13/25 17:00 1 STRIP Insulin Human Regular ACHS SC 07/22/25 17:00 08/13/25 17:00 2 UNITS Dextrose 50 ml UD PRN IV 07/22/25 16:30 Acetaminophen 500 mg Q6HP PRN PO 07/23/25 17:45 08/11/25 22:36 500 MG Memantine 5 mg HS PO 07/23/25 22:00 08/13/25 21:51 5 MG Midazolam HCl 100 ml @ 1 mls/hr Q24H IV 07/24/25 02:45 Cancel Fentanyl Citrate 250 ml @ 2.5 mls/hr Q24H IV 07/24/25 02:45 Cancel Azithromycin 250 ml @ 125 mls/hr DAILY IV 07/28/25 10:00 Cancel Hydralazine HCl 10 mg Q6HP PRN IV 07/30/25 16:45 08/02/25 06:40 10 MG Albuterol 2.5 mg Q6HPRN PRN NEB 08/06/25 12:30 Albuterol 2.5 mg Q8H NEB 08/06/25 14:00 08/13/25 22:37 2.5 MG Amiodarone HCl 200 mg Q12HR PO 08/07/25 10:00 08/13/25 21:51 200 MG Apixaban 2.5 mg BID PO 08/07/25 10:00 08/13/25 21:51 2.5 MG Aspirin 81 mg DAILY PO 08/07/25 10:00 08/13/25 10:05 81 MG Atorvastatin Calcium 40 mg HS PO 08/07/25 22:00 08/13/25 21:51 40 MG Empaglifozin 25 mg DAILY PO 08/07/25 10:00 08/13/25 10:06 25 MG Metoprolol Tartrate 12.5 mg BID PO 08/10/25 22:00 08/13/25 10:11 12.5 MG Potassium Chloride 16 meq DAILY PO 08/11/25 10:00 08/13/25 10:06 16 MEQ objective The patient is well-nourished and well-developed with no distress. MENTAL STATUS: Subjective CRANIAL NERVES: Pupils are round and reactive. There are conjugated eye movement, no ptosis, no abnormal vascular dilatation or skin secretion. No signs of facial weakness SENSATION: Responses to light touch in the pinprick MOTOR: Normal tone in the upper and lower extremity. Normal muscle bulk. No fasciculations. Moves the arms and the legs REFLEXES: Deep tendon reflexes are symmetrical. No pathological reflexes. CEREBELLAR/COORDINATION: Deferred GAIT/STATION: deferred laboratory and microbiology Laboratory Tests 08/11/25 06:55 08/10/25 10:08 Test 08/10/25 10:08 Range/Units Serum Glucose 190 H 74-106 mg/dL Problem List Coma, resolved Metabolic encephalopathy Toxic encephalopathy Hypoxic encephalopathy Possible community-acquired pneumonia vs a typical viral pneumonia Possible drug fever Rule out intracranial infection Hypernatremia Cognitive dysfunction, MCI. He may not have dementia AFib Coagulopathy secondary to anticoagulation treatment Acute respiratory failure, improving Fever Possible community-acquired pneumonia vs a typical viral pneumonia Possible drug fever Anisocoria, unclear clinical significance Assessment/Plan Monitoring Supportive treatment Telemetry Oxygen IV antibiotics Aspirin 81 mg daily Eliquis 2.5 mg b.i.d. Physical therapy Infectious disease consultation More recommendation per clinical course This medical document was created using an electronic medical record system with [employer] dictation system. Although this document has been carefully reviewed, there may still be some phonetic and typographical errors. These areas are purely typographical due to imperfections of the software programs, and do not reflect any compromise in the patient's medical care. Prognosis poor Dietary Evaluation Review Comments: Nutrition Recommendation: 1) EN Glucerna 1.2Cal @ 55ml/hr x 24hr (goal) along with Pro-stat 1 pk TID. Water flush 50ml Q6H if allowed, adjust PRN. TF at goal volume along with Pro-stat provide 1884 kcal (100%), 124 gm protein (91%), and 1263 ml free water(including flush). 2) TPN if NPO >7 days 3) Monitor NPO status, lab values, weight trend, and I/O Expected Outcomes/Goals: Intake to meet >75% estimated needs Lab values to improve FU 2-3 days Plan discussed with: Other CHRISTOPHER BLACK MD Aug 13, 2025 23:24
[2025-08-14] VITALS (13 sets, daily range): BP systolic 92–127; BP diastolic 59–82; PULSE 70–75; RESP 16–18; TEMP 96.8–98; O2SAT 94–99
--- NOTE | 2025-08-14 13:31 | DVHPN2 ---
Subjective Patient denies any symptoms at this time. Reviewed: Care Plan, H&P, Labs, Medications, Previous Orders, Radiology, Other (Consultations) Changes from previous H/P or p: No Changes General: Per HPI Objective Vitals Vital Signs Date Time Temp Pulse Resp B/P (MAP) Pulse Ox O2 Delivery O2 Flow Rate FiO2 08/14/25 12:32 97.6 70 18 122/80 (94) 95 97.6 08/14/25 09:48 Room Air 0.0 08/14/25 09:48 21 Intake/Output Intake and Output 08/14/25 07:00 Intake Total 1030 ml Output Total 1200 ml Balance -170 ml Intake Oral 1030 ml Output Urine Total 1200 ml General Appearance: Alert, Oriented X3, Cooperative HEENT: Atraumatic, PERRLA, Other (Right IJ central line with no signs of bleeding/infection) Lungs: Clear to auscultation, Normal air movement Chest/Breasts: Other (Pacemaker in place) Cardiovascular: Normal S1, Normal S2, Other (V paced) Abdomen: Normal bowel sounds, Soft Genitourinary: No Apparent Abnormalities ([place] catheter) Musculoskeletal: Weak motor strength RUE, Weak motor strength LUE, Weak motor strength RLE, Weak motor strength LLE Neuro: Cranial nerves 3-12 NL Skin: Dry, Intact Psych/Mental Status: Mental status NL, Mood NL Medications Current Medications Medications Dose Ordered Sig/Lizabeth Route Start Time Stop Time Status Last Admin Dose Admin Ondansetron HCl 4 mg Q4HP PRN IV 07/22/25 15:00 Nitroglycerin 0.4 mg Q5MINP PRN SL 07/22/25 15:00 Diagnostic Test (Pha) 1 strip ACHS 07/22/25 17:00 08/13/25 17:00 1 STRIP Insulin Human Regular ACHS SC 07/22/25 17:00 08/13/25 17:00 2 UNITS Dextrose 50 ml UD PRN IV 07/22/25 16:30 Acetaminophen 500 mg Q6HP PRN PO 07/23/25 17:45 08/11/25 22:36 500 MG Memantine 5 mg HS PO 07/23/25 22:00 08/13/25 21:51 5 MG Midazolam HCl 100 ml @ 1 mls/hr Q24H IV 07/24/25 02:45 Cancel Fentanyl Citrate 250 ml @ 2.5 mls/hr Q24H IV 07/24/25 02:45 Cancel Azithromycin 250 ml @ 125 mls/hr DAILY IV 07/28/25 10:00 Cancel Hydralazine HCl 10 mg Q6HP PRN IV 07/30/25 16:45 08/02/25 06:40 10 MG Albuterol 2.5 mg Q6HPRN PRN NEB 08/06/25 12:30 Albuterol 2.5 mg Q8H NEB 08/06/25 14:00 08/13/25 22:37 2.5 MG Amiodarone HCl 200 mg Q12HR PO 08/07/25 10:00 08/14/25 09:23 200 MG Apixaban 2.5 mg BID PO 08/07/25 10:00 08/14/25 09:23 2.5 MG Aspirin 81 mg DAILY PO 08/07/25 10:00 08/14/25 09:23 81 MG Atorvastatin Calcium 40 mg HS PO 08/07/25 22:00 08/13/25 21:51 40 MG Empaglifozin 25 mg DAILY PO 08/07/25 10:00 08/14/25 09:26 25 MG Metoprolol Tartrate 12.5 mg BID PO 08/10/25 22:00 08/14/25 09:25 12.5 MG Potassium Chloride 16 meq DAILY PO 08/11/25 10:00 08/14/25 09:25 16 MEQ Laboratory Results Laboratory Tests 08/10/25 10:08 08/11/25 06:55 Urinalysis Test 08/08/25 15:40 Urine Color Colorless (Yellow) Urine Clarity Clear (Clear) Urine pH 6.0 (5.0-9.0) Urine Specific [place] 1.024 (1.001-1.035) Urine Protein Negative (Negative) Urine Ketones Negative (Negative) Urine Blood 3+ /uL (Negative) H Urine Nitrite Negative (Negative) Urine Bilirubin Negative (Negative) Urine Urobilinogen Normal mg/dL (Negative) Urine Leukocyte Esterase Negative /uL (Negative) Urine RBC 244 /hpf (0 - 3) Urine Microscopic WBC 4 /HPF (0-3) H Urine Squamous Epithelial Cells Few /hpf (<5) Urine Bacteria None seen /hpf (None Seen) Urine Mucus Few (None Seen) Urine Glucose 4+ mg/dL (Normal) H Microbiology Microbiology Date/Time Source Procedure Growth Status 08/10/25 21:47 Nose MRSA Screen - Final Complete 07/27/25 11:21 Blood Blood Culture - Final NO GROWTH AFTER 5 DAYS OF INCUBATION. Complete 07/24/25 03:35 Urine - [place] Urine Culture - Final Complete Labs and/or images reviewed: Labs reviewed by me, Image(s) reviewed by me Assessment/Plan Assessment/Plan Impression: -acute metabolic encephalopathy -acute hypoxic respiratory failure -questionable acute seizure activity with postictal state -acute on chronic diastolic heart failure -atrial flutter with controlled rate -recent placement of dual-chamber pacemaker -? History of ETOH -acute kidney injury, vasomotor nephropathy -obesity -primary hypertension -NSTEMI, probably type 2 -rhabdomyolysis Plan: Events: Patient has been seizure-free with hemodynamic stability over the past 72 hours. Patient has been ambulating greater than 40 ft with physical therapy. Attempt was made to speak with the patient's son and provided number. At this time patient is stable to be discharged home with home health services. Social service consultation has been placed. -repeat BNP today. Results pending -transfer to Medical/Surgical unit Total time spent with patient discussing and formulating plan of care: 35 minutes. This medical document was created using an electronic medical record system with [employer] dictation system. Although this document has been carefully reviewed, there may still be some phonetic and typographical errors. These areas are purely typographical due to imperfections of the software programs, and do not reflect any compromise in the patient's medical care. Plan discussed with: Patient, Other (RN) My Orders Orders - FLORY OSMAN NP Procedure Category Date Status Time Basic Metabolic Panel LAB 08/14/25 Logged 08:27 * [employer] Inspection Specialist CONS 08/14/25 Verified Consult Date of Service: Aug 14, 2025 Billing Provider: FLORY OSMAN NP Common Visit Codes: [id number] INP/OBS CARE(HIGH) FLORY OSMAN NP Aug 14, 2025 13:31
[2025-08-14 15:11] LABS: Anion Gap 7 (5-15)
[2025-08-14 15:15] LABS: Calcium 9.2 mg/dL (8.7-10.4); Carbon Dioxide 28 mmol/L (20-31); Chloride 100 mmol/L (98-107); Potassium 4.8 mmol/L (3.5-5.1); Sodium 135 mmol/L (136-145)
[2025-08-14 15:27] LABS: Glucose 121 mg/dL (74-106)
[2025-08-14 15:28] LABS: BUN/Creatinine Ratio 16.7 (10.0-20.0); Blood Urea Nitrogen 14 mg/dL (9-23)
--- NOTE | 2025-08-14 23:10 | DVHPN2 ---
Consult Progress Note Objective vital signs Vital Sign Date Time Temp Pulse Resp B/P (MAP) Pulse Ox O2 Delivery O2 Flow Rate FiO2 08/14/25 22:10 72 08/14/25 21:00 97.6 16 127/81 (96) 95 97.6 08/14/25 13:48 Room Air* 0 21 Total Intake and Output 08/13/25 08/13/25 08/14/25 15:00 23:00 07:00 Intake Total 1030 ml Output Total 1200 ml Balance -170 ml medications Current Medications Medications Dose Ordered Sig/Lizabeth Route Start Time Stop Time Status Last Admin Dose Admin Ondansetron HCl 4 mg Q4HP PRN IV 07/22/25 15:00 Nitroglycerin 0.4 mg Q5MINP PRN SL 07/22/25 15:00 Diagnostic Test (Pha) 1 strip ACHS 07/22/25 17:00 08/14/25 22:20 1 STRIP Insulin Human Regular ACHS SC 07/22/25 17:00 08/14/25 22:20 2 UNITS Dextrose 50 ml UD PRN IV 07/22/25 16:30 Acetaminophen 500 mg Q6HP PRN PO 07/23/25 17:45 08/11/25 22:36 500 MG Memantine 5 mg HS PO 07/23/25 22:00 08/14/25 22:09 5 MG Midazolam HCl 100 ml @ 1 mls/hr Q24H IV 07/24/25 02:45 Cancel Fentanyl Citrate 250 ml @ 2.5 mls/hr Q24H IV 07/24/25 02:45 Cancel Azithromycin 250 ml @ 125 mls/hr DAILY IV 07/28/25 10:00 Cancel Hydralazine HCl 10 mg Q6HP PRN IV 07/30/25 16:45 08/02/25 06:40 10 MG Albuterol 2.5 mg Q6HPRN PRN NEB 08/06/25 12:30 Albuterol 2.5 mg Q8H NEB 08/06/25 14:00 08/14/25 13:47 2.5 MG Amiodarone HCl 200 mg Q12HR PO 08/07/25 10:00 08/14/25 22:10 200 MG Apixaban 2.5 mg BID PO 08/07/25 10:00 08/14/25 22:09 2.5 MG Aspirin 81 mg DAILY PO 08/07/25 10:00 08/14/25 09:23 81 MG Atorvastatin Calcium 40 mg HS PO 08/07/25 22:00 08/14/25 22:09 40 MG Empaglifozin 25 mg DAILY PO 08/07/25 10:00 08/14/25 09:26 25 MG Metoprolol Tartrate 12.5 mg BID PO 08/10/25 22:00 08/14/25 22:10 12.5 MG Potassium Chloride 16 meq DAILY PO 08/11/25 10:00 08/14/25 09:25 16 MEQ laboratory and microbiology Laboratory Tests 08/14/25 14:24 08/10/25 10:08 Test 08/14/25 14:24 Range/Units Serum Glucose 121 H 74-106 mg/dL Problem List/Assessment/Plan Problem List/Assessment/Plan ASSESSMENT AND PLAN: ID Problem List: - acute hypoxic respiratory failure - atypical pneumonia -Altered mental status with decreased level of consciousness -Intermittent fevers during hospitalization (onset ~07/24, peak 102F on 07/25) -Leukocytosis (harry to 11.9 on 07/26) -Atrial fibrillation/atrial flutter; s/p pacemaker placement (06/27, [place]) -Hypertension -Possible community-acquired pneumonia vs atypical/viral pneumonia (no clear focal consolidation on CXR) -Possible drug fever (ceftriaxone; consider other recent medications) -Elevated troponin (657 on 07/24) and bundle branch block on EKG -Cardiomegaly with pulmonary vascular congestion on chest imaging -Intubated 07/23; on fentanyl infusion; on vasopressor support (norepinephrine) -Aortic systolic ejection murmur -Left shoulder blister, scabbed -Obesity (BMI 35.6) -Former alcohol use disorder; former smoker Assessment This is a male with a history of atrial fibrillation/atrial flutter, hypertension, former heavy alcohol use (currently abstinent), former smoker, and pacemaker placement on 06/27 who presented with decreased level of consciousness after several days of pacemaker-detected arrhythmias. Admission vitals were stable without initial fever; he subsequently developed fevers beginning ~07/24 peaking at 102F on 07/25, then trending down. He was intubated on 07/23, now on minimal ventilator support; he remains on norepinephrine (14 mcg) with improving blood pressures over 2448 hours. Cultures (blood, urine) have been negative to date; tracheal/respiratory culture shows normal oropharyngeal chely. Chest imaging demonstrates cardiomegaly and moderate pulmonary vascular congestion without a clear focal pneumonia. EKG shows a bundle branch block and troponin harry to 657 on 07/24. Leukocytosis increased to 11.9 on 07/26. UA shows mild pyuria (11 WBC), negative LE/nitrites, no bacteria, and 4+ glucosuria; urine cultures negative. Head CT shows no acute intracranial process; renal ultrasound without hydronephrosis. Differential for fevers and leukocytosis includes atypical/viral pneumonia, drug fever (ceftriaxone; also consider recent furosemide, increased statin dose, amiodarone), venous thromboembolism with possible inflammatory fever, aspiration pneumonitis, and noninfectious ischemic hepatopathy in the context of critical illness and elevated troponin. 07/28: fever curve improving but still febrile, doppler US negative for DVT, HIV negative 07/29: off pressors, hypoxia improving on minimal vent 07/30: no new fevers 07/31: requiring antipyretic, cooling blanket 08/01: worsening hypernatremia, no true fevers but recurrent elevated temps 08/02: doxycycline stopped, switched to levofloxacin for elevated temps 08/04: extubated to 2LNC, no ongoing sign of infection 08/08: no ongoing signs of infection 08/10: MRSA nares negative 08/11: intermittent hypotension, ARBs stopped 08/12: awaiting transfer to [facility] Plan: -Antimicrobials: - will monitor clinically off all antibiotics -Diagnostics: - check legionella ag and mycoplasma ab--> negative -Fever/Leukocytosis: -Monitor fever curve; note that resolution may take several days if drug fever- related. -Continue to monitor WBC trend and clinical status. -Respiratory: -Continue ventilatory weaning as tolerated; monitor for signs of aspiration or evolving pneumonia. -Repeat chest imaging as clinically indicated. -Cardiovascular: -Continue amiodarone per cardiology. -Trend troponins. -Maintain adequate perfusion; coordinate with cardiology regarding vasopressor/inotrope strategy (cardioselective agents as appropriate). -Renal/Volume: -Monitor urine output (reported ~1,300 cc/day); continue diuresis with furosemide as clinically indicated. -Supportive care: -Antipyretics as needed (acetaminophen given once on 07/24). -Continue ICU-level monitoring and supportive measures. -Infection prevention: -No evidence for catheter- or skin-source infection on current exam; continue routine line care and skin assessments. Isolation Precautions: standard \*Assessment and plan was discussed with the care team as written above. \*Plan is subject to change pending incorporation of new incoming information/diagnostics. Updates may be added as addendum at the bottom (OR TOP) of this note. Thank you for the consult. Infectious Diseases will continue to follow. Please contact Infectious Disease for any questions or concerns. ++++++++++++++++++++++++++++++++++++++++++++++++++++++++++++++++++++++++ Physical Exam: General: NAD Neck: Supple. No masses. HEENT: PERRL. Normal lids and conjunctiva. Moist mucous membranes. Oropharynx without lesions, exudates or excessive erythema. Normal appearance of the external aspects of the nose and ears. Heart: Regular rhythm, normal rate. Aortic systolic ejection murmur present. No lower extremity edema noted. Lungs: Normal respiratory effort. Clear to auscultation bilaterally. No wheezes. No crackles. Abdomen: Soft. Non-tender. Non-distended. Normal bowel sounds. No masses or abdominal hernia. Msk: No digital cyanosis. Normal tone in all 4 limbs. Skin: Warm and dry, no rashes. Left shoulder blister with scab. Neuro: Lethargic but oriented to person, place, and time when arousable. No facial droop or slurred speech. Extra-ocular movements intact. Sensation intact to soft touch in all 4 limbs. Decreased strength in upper and lower extremities. Psych: Appropriate mood. Full affect when interactive. Oriented to person, place, time, and situation when arousable. Dietary Evaluation Review Comments: Nutrition Recommendation: 1) EN Glucerna 1.2Cal @ 55ml/hr x 24hr (goal) along with Pro-stat 1 pk TID. Water flush 50ml Q6H if allowed, adjust PRN. TF at goal volume along with Pro-stat provide 1884 kcal (100%), 124 gm protein (91%), and 1263 ml free water(including flush). 2) TPN if NPO >7 days 3) Monitor NPO status, lab values, weight trend, and I/O Expected Outcomes/Goals: Intake to meet >75% estimated needs Lab values to improve FU 2-3 days DHRUV GERMAN MD Aug 14, 2025 23:10
--- NOTE | 2025-08-14 23:16 | DVHPN2 ---
Subjective DOS: 08/14/2025 Patient seen and examined at bedside. Remains on room air Overnight events reviewed. Reviewed: Care Plan, H&P, Labs, Medications, Previous Orders, Radiology, Other (Consultations) Changes from previous H/P or p: No Changes General: Per HPI Objective Vitals Vital Signs Date Time Temp Pulse Resp B/P (MAP) Pulse Ox O2 Delivery O2 Flow Rate FiO2 08/14/25 22:10 72 08/14/25 21:00 97.6 16 127/81 (96) 95 97.6 08/14/25 13:48 Room Air* 0 21 Intake/Output Intake and Output 08/14/25 07:00 Intake Total 1030 ml Output Total 1200 ml Balance -170 ml Intake Oral 1030 ml Output Urine Total 1200 ml Exam Gen.: Patient lying in bed in no apparent distress. On room air. Head: Normocephalic, atraumatic. Eyes: EOMI/PERRLA. Ears: Normal hearing. Normal anatomy. Neck/trachea: Trachea midline, supple. Nose: Normal external anatomy. Mouth: Moist mucous membranes. Chest: Decreased air entry bilaterally. No wheezing or rhonchi. Cardiovascular: Positive S1, positive S2. Regular rate and rhythm. Abdomen: Positive bowel sounds in all 4 quadrants. Soft, non-tender, non- distended. : Deferred. Rectal: Deferred. Skin: Warm, dry. Intact. Extremities: 2+ radial pulses bilaterally. No lower extremity edema. Neuro: Awake, alert. No gross motor or sensory deficits. Cranial nerves II through XII intact. Gait not assessed. General Appearance: Alert, Oriented X3, Cooperative HEENT: Atraumatic, PERRLA, Other (Right IJ central line with no signs of bleeding/infection) Lungs: Clear to auscultation, Normal air movement Chest/Breasts: Other (Pacemaker in place) Cardiovascular: Normal S1, Normal S2, Other (V paced) Abdomen: Normal bowel sounds, Soft Genitourinary: No Apparent Abnormalities ([place] catheter) Musculoskeletal: Weak motor strength RUE, Weak motor strength LUE, Weak motor strength RLE, Weak motor strength LLE Neuro: Cranial nerves 3-12 NL Skin: Dry, Intact Psych/Mental Status: Mental status NL, Mood NL Medications Current Medications Medications Dose Ordered Sig/Lizabeth Route Start Time Stop Time Status Last Admin Dose Admin Ondansetron HCl 4 mg Q4HP PRN IV 07/22/25 15:00 Nitroglycerin 0.4 mg Q5MINP PRN SL 07/22/25 15:00 Diagnostic Test (Pha) 1 strip ACHS 07/22/25 17:00 08/14/25 22:20 1 STRIP Insulin Human Regular ACHS SC 07/22/25 17:00 08/14/25 22:20 2 UNITS Dextrose 50 ml UD PRN IV 07/22/25 16:30 Acetaminophen 500 mg Q6HP PRN PO 07/23/25 17:45 08/11/25 22:36 500 MG Memantine 5 mg HS PO 07/23/25 22:00 08/14/25 22:09 5 MG Midazolam HCl 100 ml @ 1 mls/hr Q24H IV 07/24/25 02:45 Cancel Fentanyl Citrate 250 ml @ 2.5 mls/hr Q24H IV 07/24/25 02:45 Cancel Azithromycin 250 ml @ 125 mls/hr DAILY IV 07/28/25 10:00 Cancel Hydralazine HCl 10 mg Q6HP PRN IV 07/30/25 16:45 08/02/25 06:40 10 MG Albuterol 2.5 mg Q6HPRN PRN NEB 08/06/25 12:30 Albuterol 2.5 mg Q8H NEB 08/06/25 14:00 08/14/25 13:47 2.5 MG Amiodarone HCl 200 mg Q12HR PO 08/07/25 10:00 08/14/25 22:10 200 MG Apixaban 2.5 mg BID PO 08/07/25 10:00 08/14/25 22:09 2.5 MG Aspirin 81 mg DAILY PO 08/07/25 10:00 08/14/25 09:23 81 MG Atorvastatin Calcium 40 mg HS PO 08/07/25 22:00 08/14/25 22:09 40 MG Empaglifozin 25 mg DAILY PO 08/07/25 10:00 08/14/25 09:26 25 MG Metoprolol Tartrate 12.5 mg BID PO 08/10/25 22:00 08/14/25 22:10 12.5 MG Potassium Chloride 16 meq DAILY PO 08/11/25 10:00 08/14/25 09:25 16 MEQ Laboratory Results Laboratory Tests 08/10/25 10:08 08/14/25 14:24 Chemistry Test 08/14/25 14:24 Calcium Level 9.2 mg/dL (8.7-10.4) Urinalysis Test 08/08/25 15:40 Urine Color Colorless (Yellow) Urine Clarity Clear (Clear) Urine pH 6.0 (5.0-9.0) Urine Specific [place] 1.024 (1.001-1.035) Urine Protein Negative (Negative) Urine Ketones Negative (Negative) Urine Blood 3+ /uL (Negative) H Urine Nitrite Negative (Negative) Urine Bilirubin Negative (Negative) Urine Urobilinogen Normal mg/dL (Negative) Urine Leukocyte Esterase Negative /uL (Negative) Urine RBC 244 /hpf (0 - 3) Urine Microscopic WBC 4 /HPF (0-3) H Urine Squamous Epithelial Cells Few /hpf (<5) Urine Bacteria None seen /hpf (None Seen) Urine Mucus Few (None Seen) Urine Glucose 4+ mg/dL (Normal) H Microbiology Microbiology Date/Time Source Procedure Growth Status 08/10/25 21:47 Nose MRSA Screen - Final Complete 07/27/25 11:21 Blood Blood Culture - Final NO GROWTH AFTER 5 DAYS OF INCUBATION. Complete 07/24/25 03:35 Urine - [place] Urine Culture - Final Complete Assessment/Plan Assessment/Plan Impression: Acute hypoxic respiratory failure S/p cardiac arrest Pulmonary congestion Congestive heart failure Obesity Events: Patient remains on room air No distress. Denies SOB Improved mentation On 1:1 monitoring for safety Remains off pressors, hemodynamically stable. Aspiration risk. Head of bed elevation Aspiration precautions Continue bronchodilators/Mucomyst Chest physiotherapy Incentive spirometry Blood pressure control Amiodarone PO/Eliquis/metoprolol for AFib Monitor renal function. Monitor electrolytes. Supplement as necessary. Potassium supplementation Accu-Cheks, ISS PRN Protonix for GI ppx Tube feeds via NGT for nutritional support Continue physical therapy, max assist. Supportive care Disposition per hospitalist. Patient is awaiting bed at the [facility]. Central line removed. Midline in place. Chest x-ray on 08/08/25 reveals stable-appearing moderate pulmonary vascular congestion. Labs and imaging reviewed. Rest of plan as noted below. Plan: S/p extubation on 08/03/25 Supplemental oxygen PRN Titrate to keep O2 sats above 92%. Head of bed elevation Aspiration precautions Continue bronchodilators Antibiotics Incentive spirometry Accu-Cheks, ISS Tube feeds for nutritional support Monitor renal function. Monitor electrolytes. Supplement as necessary. Monitor ins and outs. Recommend diet and lifestyle modifications for weight reduction Obesity complicates all care DVT prophylaxis. Prognosis: Guarded given patient's multiple co-morbidities. Rest of plan per hospitalist and other consultants. Thank you, HERMINIA Sweeney, for allowing me to participate in this patient's care. Further recommendations will depend on the patient's clinical course. Please do not hesitate to contact me if you have any questions or concerns. This medical document was created using an electronic medical record system with [employer] dictation system. Although these documentations are being carefully reviewed, there may still be some phonetic and typographical changes. The errors are purely typographical, due to imperfection on the software program, and do not reflect any compromise in the patient's medical care. Plan discussed with: Other (RN) Visit Coding Pulmonary Billing Provider: RUBI ASIF MD Date of Service if different f: Aug 14, 2025 Common Visit Codes: 50195-[id number] INP/OBS CARE(HIGH) RUBI ASIF MD Aug 14, 2025 23:16
--- NOTE | 2025-08-14 23:57 | DVHPN2 ---
Progress Note - Dictate Date Seen: Aug 14, 2025 Has the PT tested + for MRSA If YES, has PT been informed?: No Medical Necessity Reason Pt with a Central, PICC or Fol: No Subjective Mr. Renee is a 80 years old right-handed gentleman with a history of hypertension, diabetes, atrial fibrillation, dementia, obesity, he [facility] to the [facility] on 07/22/2025 with a chief complaint of altered mental status. I have seen and examined the patient in she, I have talked to his nurses, he is doing fine, he wants to go to [facility], he is oriented to person and place, he knows year, month and date, no new complaints Pupil size: 08/04/2025, 08/05/25: Rt: 3-4mm, Lt: 3mm, 08/06/2025 Rt: 4mm, Lt: 3-4mm, 08/06/2025 Rt: 4mm, Lt: 3-4mm 08/10/2025 Rt: 4mm, Lt: 3-4mm, 08/14/2025 Rt: 3mm, Lt: 2-3 mm According to ER record, memantine and Eliquis were in his home medication list Urinalysis, 07/22/2025: WBC: 11, urine leukocyte esterase: Negative ABG, 07/26/2025: Combined metabolic and respiratory acidosis Blood culture, 07/22/2025: No growth Blood culture, 07/24/2025: WBC/HB/PLT/MCV, 07/26/2025: 11.9/75/147/97.7 PT/INR/ABG, 07/25/2025: 12.2/1.17/34.7, 07/26/2025: 12.5/1.2/38.4 Na, 07/28/25: 144, 07/29/2025: 147, 07/30/2025: 150, 07/31/2025: 151 08/01/25: 151, 08/04/2025: 154, 08/05/2025: 49, 08/06/2025: 146 BUN/CR, 07/25/2025: 17/1.44 GFR, 07/25/2025: 49, 07/31/2025: 32/0.94 HGB A1c, 07/24/2025: 7.8 TBI/AST/ALT/AP, 07/25/2025: 0.8/45/42/68 TG/HDL/LDL/HDL, 07/24/2025: 100/103/42/47 Vitamin B12, 07/24/25: 1658 TSH, 07/24/2025: 1.34 Chest x-ray, 07/24/2025: Heart is prominent size. There is moderate pulmonary vascular congestion. Dual lead left cardiac device. Enteric tube tip is not well visualized. Endotracheal tube is 4 cm from the de Chest x-ray, 07/26/2025: Lines and tubes in satisfactory position. Increased interstitial prominence. This may represent pulmonary vascular congestion and/or viral pneumonia. Chest x-ray, 07/31/2025: 1. Lines and tubes unchanged. 2. Stable diffuse increased prominence of the pulmonary vasculature CT head, 07/22/2025: No acute intracranial abnormality CT head, 08/01/2025: No evidence of acute intracranial abnormality vital signs Vital Sign Date Time Temp Pulse Resp B/P (MAP) Pulse Ox O2 Delivery O2 Flow Rate FiO2 08/14/25 22:10 72 08/14/25 21:00 97.6 16 127/81 (96) 95 97.6 08/14/25 13:48 Room Air* 0 21 Total Intake and Output 08/13/25 08/13/25 08/14/25 15:00 23:00 07:00 Intake Total 1030 ml Output Total 1200 ml Balance -170 ml medications Current Medications Medications Dose Ordered Sig/Lizabeth Route Start Time Stop Time Status Last Admin Dose Admin Ondansetron HCl 4 mg Q4HP PRN IV 07/22/25 15:00 Nitroglycerin 0.4 mg Q5MINP PRN SL 07/22/25 15:00 Diagnostic Test (Pha) 1 strip ACHS 07/22/25 17:00 08/14/25 22:20 1 STRIP Insulin Human Regular ACHS SC 07/22/25 17:00 08/14/25 22:20 2 UNITS Dextrose 50 ml UD PRN IV 07/22/25 16:30 Acetaminophen 500 mg Q6HP PRN PO 07/23/25 17:45 08/11/25 22:36 500 MG Memantine 5 mg HS PO 07/23/25 22:00 08/14/25 22:09 5 MG Midazolam HCl 100 ml @ 1 mls/hr Q24H IV 07/24/25 02:45 Cancel Fentanyl Citrate 250 ml @ 2.5 mls/hr Q24H IV 07/24/25 02:45 Cancel Azithromycin 250 ml @ 125 mls/hr DAILY IV 07/28/25 10:00 Cancel Hydralazine HCl 10 mg Q6HP PRN IV 07/30/25 16:45 08/02/25 06:40 10 MG Albuterol 2.5 mg Q6HPRN PRN NEB 08/06/25 12:30 Albuterol 2.5 mg Q8H NEB 08/06/25 14:00 08/14/25 13:47 2.5 MG Amiodarone HCl 200 mg Q12HR PO 08/07/25 10:00 08/14/25 22:10 200 MG Apixaban 2.5 mg BID PO 08/07/25 10:00 08/14/25 22:09 2.5 MG Aspirin 81 mg DAILY PO 08/07/25 10:00 08/14/25 09:23 81 MG Atorvastatin Calcium 40 mg HS PO 08/07/25 22:00 08/14/25 22:09 40 MG Empaglifozin 25 mg DAILY PO 08/07/25 10:00 08/14/25 09:26 25 MG Metoprolol Tartrate 12.5 mg BID PO 08/10/25 22:00 08/14/25 22:10 12.5 MG Potassium Chloride 16 meq DAILY PO 08/11/25 10:00 08/14/25 09:25 16 MEQ objective The patient is well-nourished and well-developed with no distress. MENTAL STATUS: Subjective CRANIAL NERVES: Pupils are round and reactive. There are conjugated eye movement, no ptosis, no abnormal vascular dilatation or skin secretion. No signs of facial weakness SENSATION: Responses to light touch in the pinprick MOTOR: Normal tone in the upper and lower extremity. Normal muscle bulk. No fasciculations. Moves the arms and the legs REFLEXES: Deep tendon reflexes are symmetrical. No pathological reflexes. CEREBELLAR/COORDINATION: Deferred GAIT/STATION: deferred laboratory and microbiology Laboratory Tests 08/14/25 14:24 08/10/25 10:08 Test 08/14/25 14:24 Range/Units Serum Glucose 121 H 74-106 mg/dL Problem List Coma, resolved Metabolic encephalopathy Toxic encephalopathy Hypoxic encephalopathy Possible community-acquired pneumonia vs a typical viral pneumonia Possible drug fever Rule out intracranial infection Hypernatremia Cognitive dysfunction, MCI. He may not have dementia AFib Coagulopathy secondary to anticoagulation treatment Acute respiratory failure, improving Fever Possible community-acquired pneumonia vs a typical viral pneumonia Possible drug fever Anisocoria, unclear clinical significance Assessment/Plan Monitoring Supportive treatment Telemetry Oxygen IV antibiotics Aspirin 81 mg daily Eliquis 2.5 mg b.i.d. Physical therapy Infectious disease consultation More recommendation per clinical course This medical document was created using an electronic medical record system with [employer] dictation system. Although this document has been carefully reviewed, there may still be some phonetic and typographical errors. These areas are purely typographical due to imperfections of the software programs, and do not reflect any compromise in the patient's medical care. Prognosis poor Dietary Evaluation Review Comments: Nutrition Recommendation: 1) EN Glucerna 1.2Cal @ 55ml/hr x 24hr (goal) along with Pro-stat 1 pk TID. Water flush 50ml Q6H if allowed, adjust PRN. TF at goal volume along with Pro-stat provide 1884 kcal (100%), 124 gm protein (91%), and 1263 ml free water(including flush). 2) TPN if NPO >7 days 3) Monitor NPO status, lab values, weight trend, and I/O Expected Outcomes/Goals: Intake to meet >75% estimated needs Lab values to improve FU 2-3 days Plan discussed with: Other CHRISTOPHER BLACK MD Aug 14, 2025 23:57
[2025-08-15] VITALS (10 sets, daily range): BP systolic 110–135; BP diastolic 46–84; PULSE 68–71; RESP 17–20; TEMP 97.4–98; O2SAT 94–100
--- NOTE | 2025-08-15 00:45 | DVHPN2 ---
Progress Note - Dictate Date Seen: Aug 14, 2025 Has the PT tested + for MRSA If YES, has PT been informed?: No Medical Necessity Reason Pt with a Central, PICC or Fol: No Subjective Patient was seen and evaluated in follow up. No overnight events. Patient reports feeling well. He is requesting to go to [facility]. BS in the low 100s. Telemetry reviewed vital signs Vital Sign Date Time Temp Pulse Resp B/P (MAP) Pulse Ox O2 Delivery O2 Flow Rate FiO2 08/14/25 22:10 72 08/14/25 21:00 97.6 16 127/81 (96) 95 97.6 08/14/25 13:48 Room Air* 0 21 Total Intake and Output 08/14/25 08/14/25 08/15/25 15:00 23:00 07:00 Intake Total 1200 ml Balance 1200 ml medications Current Medications Medications Dose Ordered Sig/Lizabeth Route Start Time Stop Time Status Last Admin Dose Admin Ondansetron HCl 4 mg Q4HP PRN IV 07/22/25 15:00 Nitroglycerin 0.4 mg Q5MINP PRN SL 07/22/25 15:00 Diagnostic Test (Pha) 1 strip ACHS 07/22/25 17:00 08/14/25 22:20 1 STRIP Insulin Human Regular ACHS SC 07/22/25 17:00 08/14/25 22:20 2 UNITS Dextrose 50 ml UD PRN IV 07/22/25 16:30 Acetaminophen 500 mg Q6HP PRN PO 07/23/25 17:45 08/11/25 22:36 500 MG Memantine 5 mg HS PO 07/23/25 22:00 08/14/25 22:09 5 MG Midazolam HCl 100 ml @ 1 mls/hr Q24H IV 07/24/25 02:45 Cancel Fentanyl Citrate 250 ml @ 2.5 mls/hr Q24H IV 07/24/25 02:45 Cancel Azithromycin 250 ml @ 125 mls/hr DAILY IV 07/28/25 10:00 Cancel Hydralazine HCl 10 mg Q6HP PRN IV 07/30/25 16:45 08/02/25 06:40 10 MG Albuterol 2.5 mg Q6HPRN PRN NEB 08/06/25 12:30 Albuterol 2.5 mg Q8H NEB 08/06/25 14:00 08/14/25 13:47 2.5 MG Amiodarone HCl 200 mg Q12HR PO 08/07/25 10:00 08/14/25 22:10 200 MG Apixaban 2.5 mg BID PO 08/07/25 10:00 08/14/25 22:09 2.5 MG Aspirin 81 mg DAILY PO 08/07/25 10:00 08/14/25 09:23 81 MG Atorvastatin Calcium 40 mg HS PO 08/07/25 22:00 08/14/25 22:09 40 MG Empaglifozin 25 mg DAILY PO 08/07/25 10:00 08/14/25 09:26 25 MG Metoprolol Tartrate 12.5 mg BID PO 08/10/25 22:00 08/14/25 22:10 12.5 MG Potassium Chloride 16 meq DAILY PO 08/11/25 10:00 08/14/25 09:25 16 MEQ objective GENERAL: Alert and oriented x 3. No acute distress. EYES: PERRL, EOMI. Anicteric. HENT: Moist mucous membranes. LUNGS: Crackles to bilateral breath sounds. CARDIOVASCULAR: Irregular rate and rhythm. ABDOMEN: Soft, non-tender and non-distended. EXTREMITIES: No edema. SKIN: Warm, dry. laboratory and microbiology Laboratory Tests 08/14/25 14:24 08/10/25 10:08 Test 08/14/25 14:24 Range/Units Serum Glucose 121 H 74-106 mg/dL Problem List Non ST-elevation myocardial infarction, questionable type 1. Paroxysmal atrial fibrillation/atrial flutter, now NSR (on Eliquis therapy at home). [place] decompensated HFrEF, NYHA Class III. Presence of dual-chamber pacemaker ([employer]). Acute hypoxic respiratory failure. Diabetes mellitus, newly diagnosed. Hypertension. Dyslipidemia. Former smoker/alcoholic. Obesity. Assessment/Plan Continued all current supportive medical care. Amiodarone. Eliquis. Aspirin, Lipitor, Metoprolol. IV antibiotics as ordered. IV Hydralazine for SBP >150. GI prophylactics. Additional plan as per the hospital course. Dietary Evaluation Review Comments: Nutrition Recommendation: 1) EN Glucerna 1.2Cal @ 55ml/hr x 24hr (goal) along with Pro-stat 1 pk TID. Water flush 50ml Q6H if allowed, adjust PRN. TF at goal volume along with Pro-stat provide 1884 kcal (100%), 124 gm protein (91%), and 1263 ml free water(including flush). 2) TPN if NPO >7 days 3) Monitor NPO status, lab values, weight trend, and I/O Expected Outcomes/Goals: Intake to meet >75% estimated needs Lab values to improve FU 2-3 days Plan discussed with: Patient ANUPAMA JACOBO MD Aug 15, 2025 00:45
--- NOTE | 2025-08-15 13:23 | DVHDS2 ---
Discharge Summary Date of Admission Jul 22, 2025 at 14:47 Date of Discharge: Aug 09, 2025 Admitting Diagnosis Metabolic encephalopathy Labs/Diagnostic Data: Laboratory Results Test 08/15/25 12:46 08/14/25 14:24 08/11/25 06:55 08/10/25 10:08 POC Glucose 169 mg/dl (70-106) Sodium Level 135 mmol/L (136-145) Potassium Level 4.8 mmol/L (3.5-5.1) Chloride Level 100 mmol/L (98-107) Carbon Dioxide Level 28 mmol/L (20-31) Anion Gap 7 (5-15) Blood Urea Nitrogen 14 mg/dL (9-23) Creatinine 0.84 mg/dL (0.700-1.30) Glomerular Filtration Rate Calc 89 mL/min (>90) BUN/Creatinine Ratio 16.7 (10.0-20.0) Serum Glucose 121 mg/dL (74-106) Calcium Level 9.2 mg/dL (8.7-10.4) Magnesium Level 2.3 mg/dL (1.6-2.6) White Blood Count 6.3 10^3/uL (4.4-10.8) Red Blood Count 4.92 10^6/uL (4.5-5.90) Hemoglobin 15.6 g/dL (13.5-17.5) Hematocrit 46.7 % (41.0-53.0) Mean Corpuscular Volume 95.0 fL (80.0-100.0) Mean Corpuscular Hemoglobin 31.7 pg (28.0-32.0) Mean Corpuscular Hemoglobin Concent 33.4 g/dL (32.0-36.0) Red Cell Distribution Width 13.7 % (11.8-14.3) Platelet Count 195 10^3/uL (140-450) Mean Platelet Volume 8.9 fL (6.9-10.8) Neutrophils (%) (Auto) 64.5 % (37.0-80.0) Lymphocytes (%) (Auto) 24.0 % (10.0-50.0) Monocytes (%) (Auto) 9.0 % (0.0-12.0) Eosinophils (%) (Auto) 2.1 % (0.0-7.0) Basophils (%) (Auto) 0.4 % (0.0-2.0) Neutrophils # (Auto) 4.0 10 ^3/uL (1.6-8.6) Lymphocytes # (Auto) 1.5 10 ^3/uL (0.4-5.4) Monocytes # (Auto) 0.6 10 ^3/uL (0-1.3) Eosinophils # (Auto) 0.1 10 ^3/uL (0-0.8) Basophils # (Auto) 0 10 ^3/uL (0-0.2) Nucleated Red Blood Cells 0.1 % Test 08/08/25 15:40 08/04/25 02:39 08/03/25 09:26 08/03/25 06:11 Urine Color Colorless (Yellow) Urine Clarity Clear (Clear) Urine pH 6.0 (5.0-9.0) Urine Specific [place] 1.024 (1.001-1.035) Urine Protein Negative (Negative) Urine Ketones Negative (Negative) Urine Blood 3+ /uL (Negative) Urine Nitrite Negative (Negative) Urine Bilirubin Negative (Negative) Urine Urobilinogen Normal mg/dL (Negative) Urine Leukocyte Esterase Negative /uL (Negative) Urine RBC 244 /hpf (0 - 3) Urine Microscopic WBC 4 /HPF (0-3) Urine Squamous Epithelial Cells Few /hpf (<5) Urine Bacteria None seen /hpf (None Seen) Urine Mucus Few (None Seen) Urine Glucose 4+ mg/dL (Normal) Serum Osmolality 329 mOsm/kg (278-298) Blood Gas Specimen Type Arterial Blood Gas Sample Site Left radial Blood Gas Patient Temperature 37.0 Arterial Blood Date Drawn [id number] Arterial Blood pH 7.446 (7.350-7.450) Arterial Blood Partial Pressure CO2 37.8 mmHg (35.0-48.0) Arterial Blood Partial Pressure O2 88.2 mmHg (83.0-108.0) Arterial Blood HCO3 25.4 mmol/L (21.0-28.0) Arterial Blood Oxygen Saturation 96.5 % (94.0-98.0) Arterial Blood Base Excess 1.6 mmol/L (-2.0-3.0) Arterial Blood Oxyhemoglobin 95.2 % (94.0-98.0) Arterial Blood Carboxyhemoglobin 0.9 % (0.5-1.5) Arterial Blood Methemoglobin 0.4 % (0.0-1.5) Arterial Blood Deoxyhemoglobin 3.5 % (0.0-5.0) Brennan Test Modified Blood Gas Total Hemoglobin 17.30 g/dL (13.5-17.5) Blood Gas Modality Vent - cpap FiO2 % 30.0 Blood Gas Pressure Support 8 Blood Gas PEEP or CPAP 5.0 Blood Gas Set Respiration Rate 16.0 Blood Gas Tidal Volume 550.0 Test 08/03/25 02:31 08/02/25 11:50 07/31/25 02:50 07/29/25 14:23 B-Type Natriuretic Peptide 59.45 pg/mL (0-100) Blood Gas Spontaneous Rate 29 Blood Gas Spontaneous Tidal Volume 481 Bl Gas Inspiratory/Expiratory Ratio 1:1.3 Total Bilirubin 0.6 mg/dL (0.2-1.0) Aspartate Amino Transferase (AST) 38 U/L (13-40) Alanine Aminotransferase (ALT) 31 U/L (7-40) Alkaline Phosphatase 88 U/L (46-116) Total Protein 6.5 g/dL (5.7-8.2) Albumin 3.4 g/dL (3.2-4.8) Legionella pneumophila S1-6 Abs Non reactive (Non Reactive) Mycoplasma pneumoniae IgG Antibody 487 U/mL (0-99) Mycoplasma pneumoniae IgM Antibody <770 U/mL (0-769) Test 07/28/25 02:35 07/27/25 11:15 07/27/25 07:10 07/27/25 02:20 Direct Bilirubin 0.3 mg/dL (<0.3) HIV (1&2) Antibody Negative (Negative) Blood Gas Critical Value Read Back yes Blood Gas Notified Whom adams short Blood Gas Notified Time [id number] Blood Gas Notified By ej morales Creatine Kinase 346 U/L (46-171) Test 07/26/25 03:25 07/25/25 03:05 07/24/25 14:47 07/24/25 08:30 Prothrombin Time 12.5 sec (9.3-11.8) Prothrombin Time INR 1.20 (0.9-1.15) Activated Partial Thromboplast Time 38.4 SEC (24.5-34.5) Erythrocyte Sedimentation Rate 3 mm/hr (0-20) Troponin I High Sensitivity 657 ng/L (</=54) C-Reactive Protein High Sensitivity 3.74 mg/dL (<1.0) Ammonia 20 umol/L (11-32) Vitamin B12 Level 1658 pg/mL (211-911) Vitamin D 25-Hydroxy 24 ng/mL (.) 25-Hydroxy Vitamin D2 <1.0 ng/mL (.) 25-Hydroxy Vitamin D3 24 ng/mL (.) Triglycerides Level 100 mg/dL (< 150) Cholesterol Level 103 mg/dL (< 200) LDL Cholesterol 42 mg/dL (< 100) HDL Cholesterol 47 mg/dL (40-59) Thyroid Stimulating Hormone (TSH) 1.34 uIU/mL (0.55-4.78) Test 07/24/25 03:20 07/23/25 06:28 07/22/25 17:07 07/22/25 09:31 D-Dimer, Quantitative 0.87 mg/L FEU (0.0-0.49) Hemoglobin A1c 7.8 % A1C (<5.7) Phosphorus Level 4.0 mg/dL (2.4-5.1) Hepatitis B Surface Antigen Negative (Negative) Hepatitis C Antibody Negative (Negative) Influenza Type A Antigen Negative (Negative) Influenza Type B Antigen Negative (Negative) SARS-CoV-2 Antigen (Rapid) Negative (NEGATIVE) Lactic Acid Level 1.8 mmol/L (0.4-2.0) Other Laboratory Tests 08/14/25 14:24 08/10/25 10:08 Brief Hx & Hospital Course: History of Present Illness Mr. Renee, a 80-year-old male with a history of dementia, atrial fibrillation /Atrial flutter, prior ETOH abuse and hypertension presents to the ED via EMS for altered level of consciousness. 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 Patient recently had a pacemaker placed on June 27, at [place]. Patient complains of frequency of urination with several episodes of urinary incontinence, otherwise denies, pain, nausea, vomiting, fever, sick contact or other unusual changes. On arrival, patient is moderately symptomatic with decreased alertness and confusion; denies prior surgeries. Retired patient follows SD in the [facility] historian and son can not recall home medications. But agreed to bring the home medications and further medical history pending. Course of hospitalization: After assuming care of the patient, patient was successfully weaned off mechanical ventilation. Patient did have elevated troponins, for which cardiology consultation was obtained. Patient went for left heart catheterization, with no intervention performed. Recommendations were made for medical management. All cultures were negative during hospitalization. There was questions of possible seizure activity which caused his altered mental status requiring mechanical ventilation. Neurology consultation was obtained. No signs of active seizure activity was noted. Physical therapy was implemented with the patient. Guideline directed medical therapy was started on the patient, with noted hypotension. Patient is THADDEUS inhibitor, Jardiance, spironolactone was titrated off given marginal blood pressure. Patient was kept on metoprolol tartrate as well as amiodarone for rate control. Given his noted bleeding while on full-dose Eliquis, dose was reduced to 2.5 mg. Patient will also be continued on single platelet therapy with aspirin. [facility] after failed attempts to transfer to [facility]. Patient has been ambulating with physical therapy approximately 30 ft. Patient was tolerating oral intake. At the present, patient is hemodynamically stable in his willing to go to a rehab facility for continued physical therapy. Physical examination General: Alert and Oriented x3. No acute distress. Well-nourished. Obese Eyes: EOMI. Anicteric. HENT: Moist mucous membranes. Lungs: Clear to auscultation bilaterally. No accessory muscle use. Cardiovascular: Regular rate and rhythm. No murmur. No JVD. Abdomen: Soft, non-tender and non-distended. No palpable masses. Extremities: No edema. Non-tender. Skin: No rashes or lesions. Warm. Neurologic: No focal neurological deficits. CN II-XII grossly intact, but not individually tested. Psychiatric: Cooperative. Appropriate mood and affect. Total time spent with patient discussing and formulating plan of care: 35 minutes. This medical document was created using an electronic medical record system with [employer] dictation system. Although this document has been carefully reviewed, there may still be some phonetic and typographical errors. These areas are purely typographical due to imperfections of the software programs, and do not reflect any compromise in the patient's medical care. Operations or Procedures Left heart catheterization without intervention Condition at Discharge: Fair Final Diagnosis/Problems List -acute metabolic encephalopathy -acute hypoxic respiratory failure -questionable acute seizure activity with postictal state -acute on chronic diastolic heart failure -atrial flutter with controlled rate -recent placement of dual-chamber pacemaker -? History of ETOH -acute kidney injury, vasomotor nephropathy -obesity -primary hypertension -NSTEMI, probably type 2 -rhabdomyolysis Discharge Disposition: Alf Facility Discharge Instruct/Medications Diet: Consistent carbohydrate Activity: No Restrictions, As Tolerated Follow Up/Referral: Per accepting provider Medications: Refer to medication reconciliation form Scheduled Apixaban Base (Eliquis), 5 MG PO BID, (Reported) Atorvastatin Calcium (Atorvastatin Calcium), 1 TAB PO DAILY, (Reported) Benzonatate (Benzonatate), 1 CAP PO TID, (Reported) Docusate Sodium (Colace), 1 CAP PO BID, (Reported) Empagliflozin (Jardiance), 25 MG PO DAILY, (Reported) Furosemide (Furosemide), 1 TAB PO DAILY, (Reported) Lisinopril (Lisinopril), 0.5 TAB PO DAILY, (Reported) Memantine Hydrochloride (Memantine HCl), 5 MG PO HS, (Reported) Scheduled PRN Acetaminophen (Tylenol Extra Strength), 500 MG PO Q6HP PRN for PAIN, (Reported) 36 Discharge Statement: "Patient was advised to return to the ER or call 911 if any headaches, dizziness, shortness of breath, chest pain, abdominal pain, bleeding, fevers, or worsening of medical condition. Patient was counseled about treatment plan, medications, possible side effects, patientverbalized understanding. All questions were answered to the best of my ability. This discharge took greater then 30 minutes in planning, reviewing documentation, counseling the patient, and discussing with other team members." ASSESSMENT ASSESSMENT Assessment -acute metabolic encephalopathy-acute hypoxic respiratory failure-questionable acute seizure activity with postictal state-acute on chronic diastolic heart failure -atrial flutter with controlled rate -recent placement of dual-chamber pacemaker-? History of ETOH -acute kidney injury, vasomotor [id number] hypertension-NSTEMI, probably type 2-rhabdomyolysis Date of Service: Aug 15, 2025 Billing Provider: FLORY OSMAN NP Common Visit Codes: 09299-PBO/OBS DISCH DAY >30min FLORY OSMAN NP Aug 15, 2025 13:23
--- NOTE | 2025-08-15 22:34 | DVHPN2 ---
Subjective DOS: 08/15/2025 Patient seen and examined at bedside. Remains on room air Overnight events reviewed. Reviewed: Care Plan, H&P, Labs, Medications, Previous Orders, Radiology, Other (Consultations) Changes from previous H/P or p: No Changes General: Per HPI Objective Vitals Vital Signs Date Time Temp Pulse Resp B/P (MAP) Pulse Ox O2 Delivery O2 Flow Rate FiO2 08/15/25 20:00 18 Room Air* 0 21 08/15/25 16:44 97.4 70 98 08/15/25 16:31 135/83 (100) Intake/Output Intake and Output 08/15/25 07:00 Intake Total 1958 ml Output Total 975 ml Balance 983 ml Intake Oral 1958 ml Output Urine Total 975 ml Exam Gen.: Patient lying in bed in no apparent distress. On room air. Head: Normocephalic, atraumatic. Eyes: EOMI/PERRLA. Ears: Normal hearing. Normal anatomy. Neck/trachea: Trachea midline, supple. Nose: Normal external anatomy. Mouth: Moist mucous membranes. Chest: Decreased air entry bilaterally. No wheezing or rhonchi. Cardiovascular: Positive S1, positive S2. Regular rate and rhythm. Abdomen: Positive bowel sounds in all 4 quadrants. Soft, non-tender, non- distended. : Deferred. Rectal: Deferred. Skin: Warm, dry. Intact. Extremities: 2+ radial pulses bilaterally. No lower extremity edema. Neuro: Awake, alert. No gross motor or sensory deficits. Cranial nerves II through XII intact. Gait not assessed. General Appearance: Alert, Oriented X3, Cooperative HEENT: Atraumatic, PERRLA, Other (Right IJ central line with no signs of bleeding/infection) Lungs: Clear to auscultation, Normal air movement Chest/Breasts: Other (Pacemaker in place) Cardiovascular: Normal S1, Normal S2, Other (V paced) Abdomen: Normal bowel sounds, Soft Genitourinary: No Apparent Abnormalities ([place] catheter) Musculoskeletal: Weak motor strength RUE, Weak motor strength LUE, Weak motor strength RLE, Weak motor strength LLE Neuro: Cranial nerves 3-12 NL Skin: Dry, Intact Psych/Mental Status: Mental status NL, Mood NL Medications Current Medications Medications Dose Ordered Sig/Lizabeth Route Start Time Stop Time Status Last Admin Dose Admin Midazolam HCl 100 ml @ 1 mls/hr Q24H IV 07/24/25 02:45 Cancel Fentanyl Citrate 250 ml @ 2.5 mls/hr Q24H IV 07/24/25 02:45 Cancel Azithromycin 250 ml @ 125 mls/hr DAILY IV 07/28/25 10:00 Cancel Laboratory Results Laboratory Tests 08/10/25 10:08 08/14/25 14:24 Urinalysis Test 08/08/25 15:40 Urine Color Colorless (Yellow) Urine Clarity Clear (Clear) Urine pH 6.0 (5.0-9.0) Urine Specific [place] 1.024 (1.001-1.035) Urine Protein Negative (Negative) Urine Ketones Negative (Negative) Urine Blood 3+ /uL (Negative) H Urine Nitrite Negative (Negative) Urine Bilirubin Negative (Negative) Urine Urobilinogen Normal mg/dL (Negative) Urine Leukocyte Esterase Negative /uL (Negative) Urine RBC 244 /hpf (0 - 3) Urine Microscopic WBC 4 /HPF (0-3) H Urine Squamous Epithelial Cells Few /hpf (<5) Urine Bacteria None seen /hpf (None Seen) Urine Mucus Few (None Seen) Urine Glucose 4+ mg/dL (Normal) H Microbiology Microbiology Date/Time Source Procedure Growth Status 08/10/25 21:47 Nose MRSA Screen - Final Complete 07/27/25 11:21 Blood Blood Culture - Final NO GROWTH AFTER 5 DAYS OF INCUBATION. Complete 07/24/25 03:35 Urine - [place] Urine Culture - Final Complete Assessment/Plan Assessment/Plan Impression: Acute hypoxic respiratory failure S/p cardiac arrest Pulmonary congestion Congestive heart failure Obesity Events: Patient remains on room air No distress. Denies SOB Pt reports feeling well. No acute overnight events Improved mentation On 1:1 monitoring for safety Remains off pressors, hemodynamically stable. Aspiration risk. Head of bed elevation Aspiration precautions Continue bronchodilators Incentive spirometry Monitor blood pressure Amiodarone PO/Eliquis/metoprolol for AFib Monitor renal function. Monitor electrolytes. Supplement as necessary. Potassium supplementation Accu-Cheks, ISS PRN Protonix for GI ppx Tube feeds via NGT for nutritional support Continue physical therapy, max assist. Supportive care Patient is stable for discharge from the pulmonary standpoint. Disposition per hospitalist. Awaiting bed at the [facility]. Central line removed. Midline in place. Chest x-ray on 08/08/25 reveals stable-appearing moderate pulmonary vascular congestion. Labs and imaging reviewed. Rest of plan as noted below. Plan: S/p extubation on 08/03/25 Supplemental oxygen PRN Titrate to keep O2 sats above 92%. Head of bed elevation Aspiration precautions Continue bronchodilators Mucomyst/CPT Antibiotics - completed Incentive spirometry Accu-Cheks, ISS Tube feeds for nutritional support Monitor renal function. Monitor electrolytes. Supplement as necessary. Monitor ins and outs. Recommend diet and lifestyle modifications for weight reduction Obesity complicates all care DVT prophylaxis. Prognosis: Guarded given patient's multiple co-morbidities. Rest of plan per hospitalist and other consultants. Thank you, HERMINIA Sweeney, for allowing me to participate in this patient's care. Further recommendations will depend on the patient's clinical course. Please do not hesitate to contact me if you have any questions or concerns. This medical document was created using an electronic medical record system with [employer] dictation system. Although these documentations are being carefully reviewed, there may still be some phonetic and typographical changes. The errors are purely typographical, due to imperfection on the software program, and do not reflect any compromise in the patient's medical care. Plan discussed with: Patient, Other (JUVENAL Man) Visit Coding Pulmonary Billing Provider: RUBI ASIF MD Date of Service if different f: Aug 15, 2025 Common Visit Codes: [id number] INP/OBS CARE(HIGH) RUBI ASIF MD Aug 15, 2025 22:34
--- NOTE | 2025-08-15 23:19 | DVHPN2 ---
Progress Note - Dictate Date Seen: Aug 15, 2025 Has the PT tested + for MRSA If YES, has PT been informed?: No Medical Necessity Reason Pt with a Central, PICC or Fol: No Subjective Patient was seen and evaluated in follow up. Patient has no new complaints at this time. Patient denies any cardiac symptoms. Patient is cardiac stable for discharge. Telemetry reviewed vital signs Vital Sign Date Time Temp Pulse Resp B/P (MAP) Pulse Ox O2 Delivery O2 Flow Rate FiO2 08/15/25 13:16 95 Room Air 0.0 08/15/25 13:16 21 08/15/25 12:39 97.7 71 20 110/46 (67) 97.7 Total Intake and Output 08/14/25 08/14/25 08/15/25 15:00 23:00 07:00 Intake Total 1200 ml 758 ml Output Total 975 ml Balance 1200 ml -217 ml medications Current Medications Medications Dose Ordered Sig/Lizabeth Route Start Time Stop Time Status Last Admin Dose Admin Ondansetron HCl 4 mg Q4HP PRN IV 07/22/25 15:00 Diagnostic Test (Pha) 1 strip ACHS 07/22/25 17:00 08/15/25 11:30 1 STRIP Insulin Human Regular ACHS SC 07/22/25 17:00 08/15/25 11:30 3 UNITS Dextrose 50 ml UD PRN IV 07/22/25 16:30 Acetaminophen 500 mg Q6HP PRN PO 07/23/25 17:45 08/11/25 22:36 500 MG Memantine 5 mg HS PO 07/23/25 22:00 08/14/25 22:09 5 MG Midazolam HCl 100 ml @ 1 mls/hr Q24H IV 07/24/25 02:45 Cancel Fentanyl Citrate 250 ml @ 2.5 mls/hr Q24H IV 07/24/25 02:45 Cancel Azithromycin 250 ml @ 125 mls/hr DAILY IV 07/28/25 10:00 Cancel Hydralazine HCl 10 mg Q6HP PRN IV 07/30/25 16:45 08/02/25 06:40 10 MG Albuterol 2.5 mg Q6HPRN PRN NEB 08/06/25 12:30 Albuterol 2.5 mg Q8H NEB 08/06/25 14:00 08/14/25 13:47 2.5 MG Amiodarone HCl 200 mg Q12HR PO 08/07/25 10:00 08/15/25 08:48 200 MG Apixaban 2.5 mg BID PO 08/07/25 10:00 08/15/25 08:51 2.5 MG Aspirin 81 mg DAILY PO 08/07/25 10:00 08/15/25 08:51 81 MG Atorvastatin Calcium 40 mg HS PO 08/07/25 22:00 08/14/25 22:09 40 MG Empaglifozin 25 mg DAILY PO 08/07/25 10:00 08/15/25 08:49 25 MG Metoprolol Tartrate 12.5 mg BID PO 08/10/25 22:00 08/15/25 08:50 12.5 MG objective GENERAL: Alert and oriented x 3. No acute distress. EYES: PERRL, EOMI. Anicteric. HENT: Moist mucous membranes. LUNGS: Crackles to bilateral breath sounds. CARDIOVASCULAR: Irregular rate and rhythm. ABDOMEN: Soft, non-tender and non-distended. EXTREMITIES: No edema. SKIN: Warm, dry. laboratory and microbiology Laboratory Tests 08/14/25 14:24 08/10/25 10:08 Test 08/14/25 14:24 Range/Units Serum Glucose 121 H 74-106 mg/dL Problem List Non ST-elevation myocardial infarction, questionable type 1. Paroxysmal atrial fibrillation/atrial flutter, now NSR (on Eliquis therapy at home). [place] decompensated HFrEF, NYHA Class III. Presence of dual-chamber pacemaker ([employer]). Acute hypoxic respiratory failure. Diabetes mellitus, newly diagnosed. Hypertension. Dyslipidemia. Former smoker/alcoholic. Obesity. Assessment/Plan Continued all current supportive medical care. Amiodarone. Eliquis. Aspirin, Lipitor, Metoprolol. IV antibiotics as ordered. IV Hydralazine for SBP >150. GI prophylactics. Additional plan as per the hospital course. Dietary Evaluation Review Comments: Nutrition Recommendation: 1) EN Glucerna 1.2Cal @ 55ml/hr x 24hr (goal) along with Pro-stat 1 pk TID. Water flush 50ml Q6H if allowed, adjust PRN. TF at goal volume along with Pro-stat provide 1884 kcal (100%), 124 gm protein (91%), and 1263 ml free water(including flush). 2) TPN if NPO >7 days 3) Monitor NPO status, lab values, weight trend, and I/O Expected Outcomes/Goals: Intake to meet >75% estimated needs Lab values to improve FU 2-3 days Plan discussed with: Patient ANUPAMA JACOBO MD Aug 15, 2025 14:10
--- NOTE | 2025-08-16 19:19 | DVHPN2 ---
Consult Progress Note Objective vital signs Vital Sign Date Time Temp Pulse Resp B/P (MAP) Pulse Ox O2 Delivery O2 Flow Rate FiO2 08/15/25 20:00 18 Room Air* 0 21 08/15/25 16:44 97.4 70 98 08/15/25 16:31 135/83 (100) Total Intake and Output 08/15/25 08/15/25 08/16/25 15:00 23:00 07:00 Intake Total 240 ml Balance 240 ml medications Current Medications Medications Dose Ordered Sig/Lizabeth Route Start Time Stop Time Status Last Admin Dose Admin Midazolam HCl 100 ml @ 1 mls/hr Q24H IV 07/24/25 02:45 Cancel Fentanyl Citrate 250 ml @ 2.5 mls/hr Q24H IV 07/24/25 02:45 Cancel Azithromycin 250 ml @ 125 mls/hr DAILY IV 07/28/25 10:00 Cancel laboratory and microbiology Laboratory Tests 08/14/25 14:24 08/10/25 10:08 Test 08/14/25 14:24 Range/Units Serum Glucose 121 H 74-106 mg/dL Problem List/Assessment/Plan Problem List/Assessment/Plan ASSESSMENT AND PLAN: ID Problem List: - acute hypoxic respiratory failure - atypical pneumonia -Altered mental status with decreased level of consciousness -Intermittent fevers during hospitalization (onset ~07/24, peak 102F on 07/25) -Leukocytosis (harry to 11.9 on 07/26) -Atrial fibrillation/atrial flutter; s/p pacemaker placement (06/27, [place]) -Hypertension -Possible community-acquired pneumonia vs atypical/viral pneumonia (no clear focal consolidation on CXR) -Possible drug fever (ceftriaxone; consider other recent medications) -Elevated troponin (657 on 07/24) and bundle branch block on EKG -Cardiomegaly with pulmonary vascular congestion on chest imaging -Intubated 07/23; on fentanyl infusion; on vasopressor support (norepinephrine) -Aortic systolic ejection murmur -Left shoulder blister, scabbed -Obesity (BMI 35.6) -Former alcohol use disorder; former smoker Assessment This is a male with a history of atrial fibrillation/atrial flutter, hypertension, former heavy alcohol use (currently abstinent), former smoker, and pacemaker placement on 06/27 who presented with decreased level of consciousness after several days of pacemaker-detected arrhythmias. Admission vitals were stable without initial fever; he subsequently developed fevers beginning ~07/24 peaking at 102F on 07/25, then trending down. He was intubated on 07/23, now on minimal ventilator support; he remains on norepinephrine (14 mcg) with improving blood pressures over 2448 hours. Cultures (blood, urine) have been negative to date; tracheal/respiratory culture shows normal oropharyngeal chely. Chest imaging demonstrates cardiomegaly and moderate pulmonary vascular congestion without a clear focal pneumonia. EKG shows a bundle branch block and troponin harry to 657 on 07/24. Leukocytosis increased to 11.9 on 07/26. UA shows mild pyuria (11 WBC), negative LE/nitrites, no bacteria, and 4+ glucosuria; urine cultures negative. Head CT shows no acute intracranial process; renal ultrasound without hydronephrosis. Differential for fevers and leukocytosis includes atypical/viral pneumonia, drug fever (ceftriaxone; also consider recent furosemide, increased statin dose, amiodarone), venous thromboembolism with possible inflammatory fever, aspiration pneumonitis, and noninfectious ischemic hepatopathy in the context of critical illness and elevated troponin. 07/28: fever curve improving but still febrile, doppler US negative for DVT, HIV negative 07/29: off pressors, hypoxia improving on minimal vent 07/30: no new fevers 07/31: requiring antipyretic, cooling blanket 08/01: worsening hypernatremia, no true fevers but recurrent elevated temps 08/02: doxycycline stopped, switched to levofloxacin for elevated temps 08/04: extubated to 2LNC, no ongoing sign of infection 08/08: no ongoing signs of infection 08/10: MRSA nares negative 08/11: intermittent hypotension, ARBs stopped 08/12: awaiting transfer to [facility] Plan: -Antimicrobials: - will monitor clinically off all antibiotics -Diagnostics: - check legionella ag and mycoplasma ab--> negative -Fever/Leukocytosis: -Monitor fever curve; note that resolution may take several days if drug fever- related. -Continue to monitor WBC trend and clinical status. -Respiratory: -Continue ventilatory weaning as tolerated; monitor for signs of aspiration or evolving pneumonia. -Repeat chest imaging as clinically indicated. -Cardiovascular: -Continue amiodarone per cardiology. -Trend troponins. -Maintain adequate perfusion; coordinate with cardiology regarding vasopressor/inotrope strategy (cardioselective agents as appropriate). -Renal/Volume: -Monitor urine output (reported ~1,300 cc/day); continue diuresis with furosemide as clinically indicated. -Supportive care: -Antipyretics as needed (acetaminophen given once on 07/24). -Continue ICU-level monitoring and supportive measures. -Infection prevention: -No evidence for catheter- or skin-source infection on current exam; continue routine line care and skin assessments. Isolation Precautions: standard \*Assessment and plan was discussed with the care team as written above. \*Plan is subject to change pending incorporation of new incoming information/diagnostics. Updates may be added as addendum at the bottom (OR TOP) of this note. Thank you for the consult. Infectious Diseases will continue to follow. Please contact Infectious Disease for any questions or concerns. ++++++++++++++++++++++++++++++++++++++++++++++++++++++++++++++++++++++++ Physical Exam: General: NAD Neck: Supple. No masses. HEENT: PERRL. Normal lids and conjunctiva. Moist mucous membranes. Oropharynx without lesions, exudates or excessive erythema. Normal appearance of the external aspects of the nose and ears. Heart: Regular rhythm, normal rate. Aortic systolic ejection murmur present. No lower extremity edema noted. Lungs: Normal respiratory effort. Clear to auscultation bilaterally. No wheezes. No crackles. Abdomen: Soft. Non-tender. Non-distended. Normal bowel sounds. No masses or abdominal hernia. Msk: No digital cyanosis. Normal tone in all 4 limbs. Skin: Warm and dry, no rashes. Left shoulder blister with scab. Neuro: Lethargic but oriented to person, place, and time when arousable. No facial droop or slurred speech. Extra-ocular movements intact. Sensation intact to soft touch in all 4 limbs. Decreased strength in upper and lower extremities. Psych: Appropriate mood. Full affect when interactive. Oriented to person, place, time, and situation when arousable. Dietary Evaluation Review Comments: Nutrition Recommendation: 1) EN Glucerna 1.2Cal @ 55ml/hr x 24hr (goal) along with Pro-stat 1 pk TID. Water flush 50ml Q6H if allowed, adjust PRN. TF at goal volume along with Pro-stat provide 1884 kcal (100%), 124 gm protein (91%), and 1263 ml free water(including flush). 2) TPN if NPO >7 days 3) Monitor NPO status, lab values, weight trend, and I/O Expected Outcomes/Goals: Intake to meet >75% estimated needs Lab values to improve FU 2-3 days DHRUV GERMAN MD Aug 16, 2025 19:19
--- NOTE | 2025-08-17 20:30 | DVHNC2 ---
Intubation Indication: Respiratory Insufficiency, Altered Mental Status, Airway Protection Intubation size: cm (8.0) Informed consent obtained: No Risks/benefits/alt described: No UTO Consent Emergent intubation Notes A time out was performed. My hands were washed immediately prior to the procedure. I wore a surgical cap, mask with protective eyewear, gown and gloves throughout the procedure. The patient was placed on a [place] including continuous pulse oximetry. Rapid Sequence Intubation was conducted. Emergent intubation no sedation or paralytic administered. Cricoid pressure was maintained from time induction agent was given to time of cuff balloon inflation. Using a MAC four laryngoscope and a size 8.0 endotracheal tube with stylet, the patient was intubated on the 1st attempt. The stylet was removed and cuff balloon was inflated. Appropriate endotracheal tube position was confirmed by direct visualization of vocal cord passage, fogging of the tube, CO2 colormetric indicator and symmetric breath sounds. Post intubation chest x-ray is pending at this time. Date of Service: Jul 26, 2025 Billing Provider: JASON HORNE Common Visit Codes: PROCEDURE ONLY Procedure Codes: [id number] JASON HORNE Aug 17, 2025 20:30
== END 2025-08-15 20:47 | DRG 91 ==
LOC: EDBD 08:46 → ER 08:46 → OVERFLOW 14:47 → TELE-EAST 21:42 → ICU CENTRL 07-24 02:37 → TELE-WESTW 08-07 12:45 → WEST WING 08-15 04:42
PROVIDERS: ADMIT Nurse Practitioner Acute Care; ATTEND Nurse Practitioner Acute Care
PROC: 0BH17EZ Insertion of Endotracheal Airway into Trachea, Via Natural or Artificial Opening (ICD-10-PCS; 2025-07-24)
PROC: 5A1955Z Respiratory Ventilation, Greater than 96 Consecutive Hours (ICD-10-PCS; 2025-07-24)
PROC: 02HV33Z Insertion of Infusion Device into Superior Vena Cava, Percutaneous Approach (ICD-10-PCS; principal; 2025-07-25)
PROC: 04HY32Z Insertion of Monitoring Device into Lower Artery, Percutaneous Approach (ICD-10-PCS; 2025-07-26)
PROC: B211YZZ Fluoroscopy of Multiple Coronary Arteries using Other Contrast (ICD-10-PCS; 2025-07-26)
PROC: 4A023N7 Measurement of Cardiac Sampling and Pressure, Left Heart, Percutaneous Approach (ICD-10-PCS; 2025-07-26)
PROC: 05HF33Z Insertion of Infusion Device into Left Cephalic Vein, Percutaneous Approach (ICD-10-PCS; 2025-08-06)
PROC: B54NZZA Ultrasonography of Left Upper Extremity Veins, Guidance (ICD-10-PCS; 2025-08-06)
DX: G92.8 Other toxic encephalopathy (principal); A41.9 Sepsis, unspecified organism; I21.A1 Myocardial infarction type 2; J96.01 Acute respiratory failure with hypoxia; N17.0 Acute kidney failure with tubular necrosis; I46.9 Cardiac arrest, cause unspecified; R65.21 Severe sepsis with septic shock; J18.9 Pneumonia, unspecified organism; I50.33 Acute on chronic diastolic (congestive) heart failure; J12.9 Viral pneumonia, unspecified; D68.9 Coagulation defect, unspecified; M62.82 Rhabdomyolysis; E87.4 Mixed disorder of acid-base balance; I11.0 Hypertensive heart disease with heart failure; N39.0 Urinary tract infection, site not specified; Z79.01 Long term (current) use of anticoagulants; F02.83 Dementia in other diseases classified elsewhere, unspecified severity, with mood disturbance; F10.239 Alcohol dependence with withdrawal, unspecified; E11.9 Type 2 diabetes mellitus without complications; F32.A Depression, unspecified; R56.9 Unspecified convulsions; Z68.35 Body mass index [BMI] 35.0-35.9, adult; E87.0 Hyperosmolality and hypernatremia; G93.1 Anoxic brain damage, not elsewhere classified; I48.92 Unspecified atrial flutter; I47.20 Ventricular tachycardia, unspecified; E78.5 Hyperlipidemia, unspecified; Z20.822 Contact with and (suspected) exposure to COVID-19; I48.0 Paroxysmal atrial fibrillation; E66.01 Morbid (severe) obesity due to excess calories; G30.9 Alzheimer's disease, unspecified; I45.4 Nonspecific intraventricular block; I25.10 Atherosclerotic heart disease of native coronary artery without angina pectoris; S40.222A Blister (nonthermal) of left shoulder, initial encounter; H57.02 Anisocoria; Z95.0 Presence of cardiac pacemaker; Z90.49 Acquired absence of other specified parts of digestive tract; Z87.891 Personal history of nicotine dependence; Z83.3 Family history of diabetes mellitus; Z82.49 Family history of ischemic heart disease and other diseases of the circulatory system; Z99.81 Dependence on supplemental oxygen; Z80.0 Family history of malignant neoplasm of digestive organs; X58.XXXA Exposure to other specified factors, initial encounter; Y93.89 Activity, other specified; Y92.89 Other specified places as the place of occurrence of the external cause; Y99.8 Other external cause status
CPT/HCPCS: 36415; 36556; 36600; 70450; 71045; 76775; 80048; 80053; 80061; 80076; 81001; 82140; 82306; 82550; 82607; 82805; 82962; 83036; 83605; 83735; 83880; 83930; 84100; 84132; 84443; 84484; 85025; 85379; 85610; 85652; 85730; 86141; 86703; 86738; 86803; 87040; 87070; 87081; 87086; 87205; 87278; 87340; 87426; 87804; 92610; 93005; 93454; 93970; 94002; 94003; 94640; 95819; 96360; 96372; 97110; 97116; 97163; 97530; 99152; 99291; C1887; G0378; J0330; J1815; J1956; J2003; J2470; J3480; Q9967